=== PATIENT | male | born 1960 | race Caucasian/White ===

== ENCOUNTER 2016-05-28 22:18 | Inpatient (IN) | payer OTHER ==
[~2016-05-28] VITALS: Ht 188 cm; Wt 55.5 kg
[~2016-05-28 22:18] MED LIST: DEXTR50%P; DILA100C IVP; DOCU8.6T PO; IPRASOL INH; MAGN400T14 PO; MIRA33504 PO; PERI0.126 SWISH-SPIT; POTA10LI10 PO; POTAGRA; PROP10IN IV-CENTRAL; PROT40TA IVP; ZOFR4SOL IVP; [UNRECOGNIZED DRUG - CODE]; [UNRECOGNIZED DRUG - CODE] IV-CENTRAL
[2016-05-29 14:26] VITALS: BP 131/82; PULSE 61; RESP 16; TEMP 96.2; O2SAT 100
[2016-05-29] MEDS ORDERED: NALOXONE HCL 0.4 MG/ML AMP IV PRN (15:00)
[2016-05-29] MEDS ORDERED: SODIUM CHLORIDE 0.9% FLUSH 5 ML FLUSH FLUSH PRN (15:00)
[2016-05-29] MEDS ORDERED: ONDANSETRON HCL 4 MG/2 ML VIAL IVP PRN (15:00)
--- NOTE | 2016-05-29 15:11 | HHI.HP ---
HPI Service [facility] Hospitalists Primary Care Physician No Primary Care Physician Admission Diagnosis Intracranial hemorrhage, AVM status post repair at outside hospital. Return transfer of care. Diagnoses: Chief Complaint: Return transfer of care from [facility]. Travel History International Travel<30 Days: No Contact w/Intl Traveler <30 Da: No Traveled to Known Affected Are: No History of Present Illness Extensive chart review as the patient is unable to provide his own history. He is a 55-year-old male with a medical history significant for rectal cancer status post resection, chemotherapy therapy and radiation. The patient was initially admitted to [place] on 05/03/2016 after he was found down. He was intubated in the field and was noted to have disconjugate pupils. 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 The patient underwent placement of right frontal external ventricular drain for acute hydrocephalus and was transferred to [facility] for further treatment of the AVM. At [facility], the patient underwent AVM embolization followed by suboccipital craniotomy for hematoma evacuation and AVM resection. Postoperatively, he was slow to wake up and a head CT showed herniation. His EVD was Clamped and his mental status improved. Other complications include the UTI and agitation. He was started on Rocephin and Seroquel when improvement. The patient is being transferred back to [facility]. The patient is evaluated in his room. He is still very much confused trying to pull off his PEG. He knows that he is at [place] otherwise he is confused about his situation, dates and times. Review of Systems ROS Limitations: Clinical Condition, Altered Mental Status Other Unable to obtain reliable review of systems as of the patient's profound confusion state. Past Family Social History Past Medical History Per review of the available medical record: History of rectal mass status post resection and radiation/chemotherapy. Intracranial hemorrhage secondary to AVM as above. Past Surgical History Rectal mass resection Craniectomy Reported Medications Current medications include Rocephin 1 g IV every 12 hours Fioricet 1 tab every 4 hours as needed for headache. Heparin 5000 units every 8 hours Keppra 500 mg by mouth twice a day Metoprolol 25 mg by mouth twice a day Seroquel 25 mg by mouth twice a day Allergies: Coded Allergies: Oxycodone (Unverified Allergy, Intermediate, ITCHY, 01/16/16) Family History Unable to obtain due to the patient's condition Social History Patient has a history of tobacco abuse and 2-3 beers daily on previous hospital visits Physical Exam Vital Signs Vital Signs Date Time Temp Pulse Resp B/P Pulse Ox O2 Delivery O2 Flow Rate FiO2 05/29/16 14:26 96.2 61 16 131/82 100 Physical Exam GENERAL: This is a well-nourished, well-developed patient, in no apparent distress. Patient is confused, attempts to remove PEG tube. HEAD: Right frontal suture is intact. Healing area in the posterior cerebrum. EYES: Pupils equal round and reactive. Extraocular motions intact. No scleral icterus. No injection or drainage. ENT: Nose without bleeding, purulent drainage or septal hematoma. Throat without erythema, tonsillar hypertrophy or exudate. Uvula midline. Airway patent. NECK: Trachea midline. No JVD or lymphadenopathy. Supple, nontender, no meningeal signs. CARDIOVASCULAR: Regular rate and rhythm without murmurs, gallops, or rubs. RESPIRATORY: Clear to auscultation. Breath sounds equal bilaterally. No wheezes , rales, or rhonchi. GASTROINTESTINAL: PEG tube in place. Abdomen soft, nontender, nondistended. MUSCULOSKELETAL: Extremities without clubbing, cyanosis, or edema. NEUROLOGICAL: Awake, speech is normal but is confused. He can move all extremities spontaneously. He follows some commands. Laboratory CBC, BMP, reviewed from outside hospital all unremarkable. This can be found in the paper chart. Assessment and Plan Problem List: (1) Cerebellar hemorrhage ICD Code: I61.4 Status: Acute (2) AVM (arteriovenous malformation) brain ICD Code: Q28.2 Status: Acute (3) Encephalopathy, traumatic ICD Code: F07.81 Status: Acute (4) UTI (urinary tract infection) ICD Code: N39.0 Status: Acute (5) Agitation ICD Code: R45.1 Status: Acute Assessment and Plan 55-year-old male initially admitted to [facility] on 05/03/60 with an intracerebral hemorrhage secondary to AVM. Patient was subsequently transferred to [facility] for intervention. The patient is returned to [place] to continue care. Intracerebral hemorrhage/AVM: Patient underwent AVM embolization followed by suboccipital craniectomy for hematoma evacuation and AVM resection. Patient status slowly improving and deemed to be neurologically stable. He was transferred back to [place]. He is to remain on antiepileptic until follow-up with neurosurgeon, Dr. Greg Villela at [facility]. He has an appointment on 07/31/16 at 1 PM. - Continue Keppra - PT/OT/speech - Patient will need continuing rehabilitation. - Seroquel for agitation. Restraint as needed. Dysphagia/currently on tube feeding: Apparently the patient was having issues with dysphagia and subsequently had a PEG tube placed. He has been getting tube feeding. - Will have speech therapy do swallow eval. - Continue tube feeding. UTI: Patient was found to have a UTI and was started on Rocephin. -He will continue Rocephin for 5 days. We will request urine culture results from [facility]. GI prophylaxis: Stool softener PRN constipation. DVT PPx: Heparin Physician Certification 2 Midnight Certification Type: Admission for Inpatient Services Order for Inpatient Services The services are ordered in accordance with Medicare regulations or non- Medicare payer requirements, as applicable. In the case of services not specified as inpatient-only, they are appropriately provided as inpatient services in accordance with the 2-midnight benchmark. Estimated LOS (days): 5 days is the estimated time the patient will need to remain in the hospital, assuming treatment plan goals are met and no additional complications. Post-Hospital Plan: Not yet determined Babita Pinto MD May 29, 2016 15:11
[2016-05-29 15:35] VITALS: BP 128/73; PULSE 79; RESP 16; TEMP 96.4; O2SAT 100
[2016-05-29] MEDS: cefTRIAXone INJ 1,000 MG in SODIUM CHLORIDE 0.9% INJ 100 ML IV SCH (16:40)
[2016-05-29 20:17] VITALS: BP 96/64; PULSE 90; RESP 18; TEMP 96.6; O2SAT 100
[2016-05-29] MEDS: METOPROLOL TARTRATE 25 MG TAB PO SCH (22:24)
[2016-05-29] MEDS: levETIRAcetam 500 MG TAB PO SCH (22:24)
[2016-05-29] MEDS: QUEtiapine FUMARATE 25 MG TAB PO SCH (22:24)
[2016-05-29] MEDS: HEPARIN SODIUM - SQ 10,000 UNITS/ML VIAL SQ SCH (22:25)
[2016-05-29] MEDS: SODIUM CHLORIDE 0.9% FLUSH 5 ML FLUSH FLUSH SCH (22:27)
[2016-05-30 00:08] VITALS: BP 121/84; PULSE 108; RESP 20; TEMP 97.8; O2SAT 100
[2016-05-30] MEDS: cefTRIAXone INJ 1,000 MG in SODIUM CHLORIDE 0.9% INJ 100 ML IV SCH ×2 (04:30→16:00)
[2016-05-30 05:29] VITALS: BP 91/60; PULSE 76; RESP 17; TEMP 97.3; O2SAT 99
[2016-05-30 05:48] LABS: AUTOMATED NEUTROPHIL # 4.4 TH/MM3 (1.8-7.7); BASOPHIL % 0.7 % (0.0-2.0); EOSINOPHIL # 0.3 TH/MM3 (0-0.4); EOSINOPHIL % 4.3 % (0.0-4.0); HEMATOCRIT 34.4 % (39.0-51.0); HEMO FLAGS DIFF FINAL; LYMPH % 17.7 % (9.0-44.0); LYMPHOCYTE # 1.1 TH/MM3 (1.0-4.8); MEAN CELL VOLUME 89.1 FL (80.0-100.0); MEAN CORPUSCULAR HEMOGLOBIN 30.6 PG (27.0-34.0); MEAN CORPUSCULAR HGB CONC 34.3 % (32.0-36.0); MONO % 8.1 % (0.0-8.0); NEUT % 69.2 % (16.0-70.0); PLATELET COUNT 346 TH/MM3 (150-450); RED BLOOD COUNT 3.86 MIL/MM3 (4.50-5.90); RED CELL DISTRIBUTION WIDTH 14.1 % (11.6-17.2); WHITE BLOOD COUNT 6.3 TH/MM3 (4.0-11.0)
[2016-05-30 06:21] LABS: POTASSIUM 3.5 MEQ/L (3.5-5.1)
[2016-05-30 08:00] VITALS: BP 101/57; PULSE 92; RESP 20; TEMP 96.4; O2SAT 98
[2016-05-30] MEDS: levETIRAcetam 500 MG TAB PO SCH ×2 (09:34→21:15)
[2016-05-30] MEDS: METOPROLOL TARTRATE 25 MG TAB PO SCH ×2 (09:34→21:15)
[2016-05-30] MEDS: QUEtiapine FUMARATE 25 MG TAB PO SCH ×2 (09:34→21:15)
[2016-05-30] MEDS: HEPARIN SODIUM - SQ 10,000 UNITS/ML VIAL SQ SCH ×2 (09:35→21:15)
[2016-05-30] MEDS: SODIUM CHLORIDE 0.9% FLUSH 5 ML FLUSH FLUSH SCH ×2 (09:35→21:00)
[2016-05-30] MEDS: ACETAMIN 325 MG/BUTALBITAL 50 MG/CAFFEINE 40 MG TAB PO PRN (09:35)
[2016-05-30 12:00] VITALS: BP 96/63; PULSE 68; RESP 20; TEMP 97.4; O2SAT 98
--- NOTE | 2016-05-30 13:07 | HHI.PR ---
Subjective Remarks Patient is awake and alert. He used some foul language when I ask him about where he lives. Discuss with RN. Earlier this morning he was oriented to self and time. Otherwise remained confused. Objective Vitals Vital Signs Date Time Temp Pulse Resp B/P Pulse Ox O2 Delivery O2 Flow Rate FiO2 05/30/16 08:00 96.4 92 20 101/57 98 05/30/16 05:29 97.3 76 17 91/60 99 05/30/16 00:08 97.8 108 20 121/84 100 05/29/16 20:17 96.6 90 18 96/64 100 05/29/16 15:35 96.4 79 16 128/73 100 05/29/16 14:26 96.2 61 16 131/82 100 Result Diagram: 05/30/1651505/30/16515 Objective Remarks GENERAL: Patient is confused. HEAD: Right frontal suture is intact. Healing area in the posterior cerebrum. CARDIOVASCULAR: Regular rate and rhythm without murmurs, gallops, or rubs. RESPIRATORY: Clear to auscultation. Breath sounds equal bilaterally. No wheezes , rales, or rhonchi. GASTROINTESTINAL: PEG tube in place. Abdomen soft, nontender, nondistended. MUSCULOSKELETAL: Extremities without clubbing, cyanosis, or edema. NEUROLOGICAL: Awake, speech is normal but is confused. He can move all extremities spontaneously. He follows some commands. A/P Problem List: (1) Cerebellar hemorrhage ICD Code: I61.4 Status: Acute (2) AVM (arteriovenous malformation) brain ICD Code: Q28.2 Status: Acute (3) Encephalopathy, traumatic ICD Code: F07.81 Status: Acute (4) UTI (urinary tract infection) ICD Code: N39.0 Status: Acute (5) Agitation ICD Code: R45.1 Status: Acute Assessment and Plan 55-year-old male initially admitted to [place] on 05/03/60 with an intracerebral hemorrhage secondary to AVM. Patient was subsequently transferred to [facility] for intervention. The patient returned to [place] on to continue care. Intracerebral hemorrhage/AVM: Patient underwent AVM embolization followed by suboccipital craniectomy for hematoma evacuation and AVM resection. Patient status slowly improving and deemed to be neurologically stable. He was transferred back to [place]. He is to remain on antiepileptic until follow-up with neurosurgeon, Dr. Greg Villela at [facility]. He has an appointment on 07/31/16 at 1 PM. - Continue Keppra - PT/OT/speech - Patient will need continuing rehabilitation. - Seroquel for agitation. Restraint as needed. Dysphagia/currently on tube feeding: Apparently the patient was having issues with dysphagia and subsequently had a PEG tube placed. He has been getting tube feeding. -Advance diet per speech therapy recommendations. Mechanical soft. - Continue tube feeding. UTI: Patient was found to have a UTI and was started on Rocephin. -He will continue Rocephin for 5 days. He has 3 more days of treatment. GI prophylaxis: Stool softener PRN constipation. DVT PPx: Heparin Babita Pinto MD May 30, 2016 13:07
[2016-05-30 16:00] VITALS: BP 87/58; PULSE 67; RESP 20; TEMP 96.4; O2SAT 100
[2016-05-30 21:04] VITALS: BP 94/65; PULSE 80; RESP 20; TEMP 96.8; O2SAT 100
[2016-05-31] VITALS (7 sets, daily range): BP systolic 108–124; BP diastolic 69–79; PULSE 70–97; RESP 14–20; TEMP 97–98.7; O2SAT 97–100
[2016-05-31] MEDS: ACETAMIN 325 MG/BUTALBITAL 50 MG/CAFFEINE 40 MG TAB PO PRN (01:38)
[2016-05-31] MEDS: cefTRIAXone INJ 1,000 MG in SODIUM CHLORIDE 0.9% INJ 100 ML IV SCH ×2 (03:58→15:34)
[2016-05-31] MEDS: HEPARIN SODIUM - SQ 10,000 UNITS/ML VIAL SQ SCH ×2 (08:33→23:17)
[2016-05-31] MEDS: QUEtiapine FUMARATE 25 MG TAB PO SCH ×2 (08:33→23:17)
[2016-05-31] MEDS: METOPROLOL TARTRATE 25 MG TAB PO SCH ×2 (08:33→21:00)
[2016-05-31] MEDS: levETIRAcetam 500 MG TAB PO SCH ×2 (08:33→23:17)
[2016-05-31] MEDS: SODIUM CHLORIDE 0.9% FLUSH 5 ML FLUSH FLUSH SCH ×2 (08:34→21:00)
--- NOTE | 2016-05-31 11:40 | HHI.PR ---
Subjective Remarks Patient is awake and alert. He remained confused. Objective Vitals Vital Signs Date Time Temp Pulse Resp B/P Pulse Ox O2 Delivery O2 Flow Rate FiO2 05/31/16 08:00 98.4 77 18 123/71 99 05/31/16 04:34 97.0 70 20 108/71 100 05/31/16 00:52 98.5 90 20 113/69 97 05/30/16 21:04 96.8 80 20 94/65 100 05/30/16 16:00 96.4 67 20 87/58 100 05/30/16 12:00 97.4 68 20 96/63 98 I/O 05/30/16 05/30/16 05/30/16 05/31/16 05/31/16 05/31/16 06:59 14:59 22:59 06:59 14:59 22:59 Intake Total 240 ml Output Total 400 ml Balance -160 ml Intake Oral 240 ml Output Urine Total 400 ml # Voids 1 0 1 # Bowel Movements 1 1 0 4 Result Diagram: 05/30/1651505/30/16515 Objective Remarks GENERAL: Patient is confused. HEAD: Right frontal suture is intact. Healing area in the posterior cerebrum. CARDIOVASCULAR: Regular rate and rhythm without murmurs, gallops, or rubs. RESPIRATORY: Clear to auscultation. Breath sounds equal bilaterally. No wheezes , rales, or rhonchi. GASTROINTESTINAL: PEG tube in place. Abdomen soft, nontender, nondistended. MUSCULOSKELETAL: Extremities without clubbing, cyanosis, or edema. NEUROLOGICAL: Awake, speech is normal but is confused. He can move all extremities spontaneously. He follows some commands. A/P Problem List: (1) Cerebellar hemorrhage ICD Code: I61.4 Status: Acute (2) AVM (arteriovenous malformation) brain ICD Code: Q28.2 Status: Acute (3) Encephalopathy, traumatic ICD Code: F07.81 Status: Acute (4) UTI (urinary tract infection) ICD Code: N39.0 Status: Acute (5) Agitation ICD Code: R45.1 Status: Acute Assessment and Plan 55-year-old male initially admitted to [place] on 05/03/60 with an intracerebral hemorrhage secondary to AVM. Patient was subsequently transferred to [facility] for intervention. The patient returned to [place] on to continue care. Intracerebral hemorrhage/AVM: Patient underwent AVM embolization followed by suboccipital craniectomy for hematoma evacuation and AVM resection. Patient status slowly improving and deemed to be neurologically stable. He was transferred back to [place]. He is to remain on antiepileptic until follow-up with neurosurgeon, Dr. Greg Villela at [facility]. He has an appointment on 07/31/16 at 1 PM. - Continue Keppra - PT/OT/speech - Patient will need continuing rehabilitation. - Seroquel for agitation. Restraint as needed. Dysphagia/currently on tube feeding: Apparently the patient was having issues with dysphagia and subsequently had a PEG tube placed. He has been getting tube feeding. -Advance diet per speech therapy recommendations. Mechanical soft. - Continue to supplement with tube feeding. UTI: Patient was found to have a UTI and was started on Rocephin. -He will continue Rocephin for 5 days. He has 2 more days of treatment. GI prophylaxis: Stool softener PRN constipation. DVT PPx: Heparin Babita Pinto MD May 31, 2016 11:39
[2016-06-01] VITALS: BP 124/79; PULSE 97; RESP 16; TEMP 98.7; O2SAT 97
[2016-06-01 04:00] VITALS: BP 101/61; PULSE 92; RESP 16; TEMP 98.8; O2SAT 93
[2016-06-01] MEDS: cefTRIAXone INJ 1,000 MG in SODIUM CHLORIDE 0.9% INJ 100 ML IV SCH ×2 (05:50→17:05)
[2016-06-01 08:00] VITALS: BP 93/63; PULSE 76; RESP 16; TEMP 96.7; O2SAT 98
[2016-06-01] MEDS: METOPROLOL TARTRATE 25 MG TAB PO SCH ×2 (09:00→21:00)
[2016-06-01] MEDS: levETIRAcetam 500 MG TAB PO SCH ×2 (09:22→21:55)
[2016-06-01] MEDS: QUEtiapine FUMARATE 25 MG TAB PO SCH ×2 (09:22→21:55)
[2016-06-01] MEDS: SODIUM CHLORIDE 0.9% FLUSH 5 ML FLUSH FLUSH SCH ×2 (09:23→21:00)
[2016-06-01] MEDS: HEPARIN SODIUM - SQ 10,000 UNITS/ML VIAL SQ SCH ×2 (09:23→21:55)
[2016-06-01 12:00] VITALS: BP 85/68; PULSE 85; RESP 16; TEMP 96.9; O2SAT 100
--- NOTE | 2016-06-01 13:32 | HHI.PR ---
Subjective Remarks Patient is still confused. He is awake. Blood pressure borderline low today. He is eating and drinking about 50%. Objective Vitals Vital Signs Date Time Temp Pulse Resp B/P Pulse Ox O2 Delivery O2 Flow Rate FiO2 06/01/16 08:00 96.7 76 16 93/63 98 06/01/16 04:00 98.8 92 16 101/61 93 06/01/16 00:00 98.7 97 16 124/79 97 05/31/16 20:00 97.3 86 14 108/74 97 05/31/16 16:00 98.5 88 18 110/75 99 I/O 05/31/16 05/31/16 05/31/16 06/01/16 06/01/16 06/01/16 06:59 14:59 22:59 06:59 14:59 22:59 Intake Total 120 ml Output Total 250 ml Balance -130 ml Intake Oral 120 ml Output Urine Total 250 ml # Voids 1 1 4 # Bowel Movements 4 1 Result Diagram: 05/30/1651505/30/16515 Objective Remarks GENERAL: Patient is confused. HEAD: Right frontal suture is intact. Healing area in the posterior cerebrum. CARDIOVASCULAR: Regular rate and rhythm without murmurs, gallops, or rubs. RESPIRATORY: Clear to auscultation. Breath sounds equal bilaterally. No wheezes , rales, or rhonchi. GASTROINTESTINAL: PEG tube in place. Abdomen soft, nontender, nondistended. MUSCULOSKELETAL: Extremities without clubbing, cyanosis, or edema. NEUROLOGICAL: Awake, speech is normal but is confused. He can move all extremities spontaneously. He follows some commands. A/P Problem List: (1) Cerebellar hemorrhage ICD Code: I61.4 Status: Acute (2) AVM (arteriovenous malformation) brain ICD Code: Q28.2 Status: Acute (3) Encephalopathy, traumatic ICD Code: F07.81 Status: Acute (4) UTI (urinary tract infection) ICD Code: N39.0 Status: Acute (5) Agitation ICD Code: R45.1 Status: Acute Assessment and Plan 55-year-old male initially admitted to [place] on 05/03/60 with an intracerebral hemorrhage secondary to AVM. Patient was subsequently transferred to [facility] for intervention. The patient returned to [place] on to continue care. Intracerebral hemorrhage/AVM: Patient underwent AVM embolization followed by suboccipital craniectomy for hematoma evacuation and AVM resection. Patient status slowly improving and deemed to be neurologically stable. He was transferred back to [place]. He is to remain on antiepileptic until follow-up with neurosurgeon, Dr. Greg Villela at [facility]. He has an appointment on 07/31/16 at 1 PM. - Continue Keppra - PT/OT/speech - Patient will need continuing rehabilitation. - Seroquel for agitation. Restraint as needed. Dysphagia/currently on tube feeding: Apparently the patient was having issues with dysphagia and subsequently had a PEG tube placed. He has been getting tube feeding. -Advance diet per speech therapy recommendations. Mechanical soft. - Continue to supplement with tube feeding. Hypotension: No over symptoms. MAP>60. Continue to hold Metoprolol. Give total 1 L of IVF. Continue to monitor. UTI: Patient was found to have a UTI and was started on Rocephin. -He will continue Rocephin for 5 days. He has 1 more day of treatment. GI prophylaxis: Stool softener PRN constipation. DVT PPx: Heparin Discharge Planning Case management consulted for placement. Babita Pinto MD Jun 01, 2016 13:32
[2016-06-01] MEDS ORDERED: SODIUM CHLOR 0.9% 1000 ML INJ 1,000 ML IV SCH (14:30)
[2016-06-01 16:00] VITALS: BP 87/57; PULSE 88; RESP 16; TEMP 97.2; O2SAT 100
[2016-06-01 20:00] VITALS: BP 105/76; PULSE 86; RESP 12; TEMP 96.8; O2SAT 92
[2016-06-02] VITALS: BP 131/80; PULSE 88; RESP 18; TEMP 95.8; O2SAT 99
[2016-06-02 04:00] VITALS: BP 100/71; PULSE 111; RESP 14; TEMP 98; O2SAT 97
[2016-06-02] MEDS: cefTRIAXone INJ 1,000 MG in SODIUM CHLORIDE 0.9% INJ 100 ML IV SCH (04:47)
[2016-06-02 08:00] VITALS: BP 115/75; PULSE 106; RESP 20; TEMP 97.7; O2SAT 94
--- NOTE | 2016-06-02 10:27 | HHI.PR ---
Subjective Remarks DW RN. There is concern for CSF leak at the posterior incision site. Patient continues to be confused. He is hallucinating. Objective Vitals Vital Signs Date Time Temp Pulse Resp B/P Pulse Ox O2 Delivery O2 Flow Rate FiO2 06/02/16 08:00 97.7 106 20 115/75 94 06/02/16 04:00 98.0 111 14 100/71 97 06/02/16 00:00 95.8 88 18 131/80 99 06/01/16 20:00 96.8 86 12 105/76 92 06/01/16 16:00 97.2 88 16 87/57 100 06/01/16 12:00 96.9 85 16 85/68 100 I/O 06/01/16 06/01/16 06/01/16 06/02/16 06/02/16 06/02/16 06:59 14:59 22:59 06:59 14:59 22:59 Intake Total 1426 ml Balance 1426 ml IV Total 622 ml Tube Feeding 604 ml Other 200 ml # Voids 4 Result Diagram: 05/30/1651505/30/16515 Objective Remarks GENERAL: Patient is confused. SKIN: Macular rash involving his whole back. HEAD: Right frontal suture is intact. Posterior cerebrum incision site is wet with a clear fluid.. CARDIOVASCULAR: Regular rate and rhythm without murmurs, gallops, or rubs. RESPIRATORY: Clear to auscultation. Breath sounds equal bilaterally. No wheezes , rales, or rhonchi. GASTROINTESTINAL: PEG tube in place. Abdomen soft, nontender, nondistended. MUSCULOSKELETAL: Extremities without clubbing, cyanosis, or edema. NEUROLOGICAL: Awake, speech is normal but is confused. He can move all extremities spontaneously. A/P Problem List: (1) Cerebellar hemorrhage ICD Code: I61.4 Status: Acute (2) AVM (arteriovenous malformation) brain ICD Code: Q28.2 Status: Acute (3) Encephalopathy, traumatic ICD Code: F07.81 Status: Acute (4) UTI (urinary tract infection) ICD Code: N39.0 Status: Acute (5) Agitation ICD Code: R45.1 Status: Acute Assessment and Plan 55-year-old male initially admitted to [place] on 05/03/60 with an intracerebral hemorrhage secondary to AVM. Patient was subsequently transferred to [facility] for intervention. The patient returned to [place] on to continue care. Intracerebral hemorrhage/AVM: Patient underwent AVM embolization followed by suboccipital craniectomy for hematoma evacuation and AVM resection. Patient status slowly improving and deemed to be neurologically stable. He was transferred back to [place]. He is to remain on antiepileptic until follow-up with neurosurgeon, Dr. Greg Villela at [facility]. He has an appointment on 07/31/16 at 1 PM. - Concern for CSF leak, consult Neurosurgery for assistance. - Repeat Head CT when more calm. - Continue Keppra - PT/OT/speech - Patient will need continuing rehabilitation. - Seroquel for agitation. Restraint as needed. Dysphagia/currently on tube feeding: Apparently the patient was having issues with dysphagia and subsequently had a PEG tube placed. He has been getting tube feeding. - Advance diet per speech therapy recommendations. Mechanical soft. - Continue to supplement with tube feeding. Rash: Involving his back. Could be drug reaction. Rocephin discontinued. Continue to monitor. UTI: Patient was found to have a UTI and was treated with Rocephin for 5 days. GI prophylaxis: Stool softener PRN constipation. DVT PPx: Heparin Discharge Planning Case management consulted for placement. Babita Pinto MD Jun 02, 2016 10:27
[2016-06-02] MEDS: HEPARIN SODIUM - SQ 10,000 UNITS/ML VIAL SQ SCH ×2 (10:37→21:02)
[2016-06-02] MEDS: SODIUM CHLORIDE 0.9% FLUSH 5 ML FLUSH FLUSH SCH ×2 (10:37→21:00)
[2016-06-02] MEDS: QUEtiapine FUMARATE 25 MG TAB PO SCH ×2 (10:37→21:02)
[2016-06-02] MEDS: levETIRAcetam 500 MG TAB PO SCH ×2 (10:37→21:03)
[2016-06-02] MEDS ORDERED: diphenhydrAMINE HCL 2%/ZINC ACETATE 0.1% CREAM 30 APPLIC/30 GM TUBE TOPICAL PRN (11:15)
[2016-06-02 11:39] LABS: AUTOMATED NEUTROPHIL # 8.1 TH/MM3 (1.8-7.7); BASOPHIL # 0.1 TH/MM3 (0-0.2); BASOPHIL % 0.8 % (0.0-2.0); EOSINOPHIL # 0.2 TH/MM3 (0-0.4); EOSINOPHIL % 2.4 % (0.0-4.0); HEMATOCRIT 37.4 % (39.0-51.0); HEMO FLAGS DIFF FINAL; LYMPH % 10.6 % (9.0-44.0); LYMPHOCYTE # 1.1 TH/MM3 (1.0-4.8); MEAN CELL VOLUME 89.5 FL (80.0-100.0); MEAN CORPUSCULAR HEMOGLOBIN 31.4 PG (27.0-34.0); MEAN CORPUSCULAR HGB CONC 35.1 % (32.0-36.0); NEUT % 80.2 % (16.0-70.0); PLATELET COUNT 284 TH/MM3 (150-450); RED BLOOD COUNT 4.17 MIL/MM3 (4.50-5.90); RED CELL DISTRIBUTION WIDTH 14.4 % (11.6-17.2); WHITE BLOOD COUNT 10.2 TH/MM3 (4.0-11.0)
[2016-06-02 12:00] VITALS: BP 123/78; PULSE 111; RESP 20; TEMP 97.8; O2SAT 97
[2016-06-02 12:02] LABS: BICARBONATE 27.6 MEQ/L (21.0-32.0)
[2016-06-02 16:00] VITALS: BP 116/75; PULSE 91; RESP 20; TEMP 98.4; O2SAT 96
[2016-06-02] MEDS ORDERED: IOHEXOL 350 MG/ML 10 ML VIAL (for RAD DIAG) IV ONE (20:32)
--- NOTE | 2016-06-02 20:45 | RADRPT ---
EXAM DATE/TIME: 06/02/2016 20:00 [place] COMPARISON: No previous studies available for comparison. INDICATIONS : History of craniotomy possible CSF leak. IV CONTRAST: 95 cc Omnipaque 350 (iohexol) IV RADIATION DOSE: 41.62 CTDIvol (mGy) MEDICAL HISTORY : Carcinoma, rectal. Skin cancer SURGICAL HISTORY : Craniotomy. ENCOUNTER: Initial ACUITY: 1 day PAIN SCALE: 0/10 LOCATION: cranial TECHNIQUE: Multiple contiguous axial images were obtained of the head. Using automated exposure control and adj ustment of the mA and/or kV according to patient size, radiation dose was kept as low as reasonably a chievable to obtain optimal diagnostic quality images. FINDINGS: Comparison is May 05. Since the previous exam there has been a partial occipital craniectomy and numerous vascular coils in the posterior fossa for treatment of a reported previous arterial venous m alformation. There is encephalomalacia in the operative bed. There is no new intracranial hemorrhage. Supratentori al brain is unremarkable without mass effect or midline shift. Some air remains in the subcutaneous t issues in the surgical site at the posterior fossa. Previous intraventricular hemorrhage has resolved . Previous ventriculostomy tube has been removed. Small radiopaque density remains in the right front al lobe. CONCLUSION: Postoperative partial occipital craniectomy for treatment of arteriovenous malformation with vascular coils present in the operative bed. There is encephalomalacia in the posterior fossa involving the p osterior cerebellum more so on the left side. No new intracranial hemorrhage. Resolution of previous intraventricular hemorrhage. Removal of previous ventriculostomy. Kirk Cortes MD on June 02, 2016 at 20:38 Board Certified Radiologist. This report was verified electronically.
[2016-06-02] MEDS: METOPROLOL TARTRATE 50 MG TAB PO SCH (21:03)
--- NOTE | 2016-06-02 21:46 | PD.CONS ---
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 The patient underwent placement of right frontal external ventricular drain for acute hydrocephalus and was transferred to [facility] for further treatment of the AVM by embolization followed by suboccipital craniotomy for hematoma evacuation and AVM resection. Postoperatively, he was slow to wake up, his EVD was Clamped and removed and his mental status was improving. Other complications include the UTI and agitation. He was started on Rocephin and Seroquel. The patient is being transferred back to [facility] due to confusion and questionable CSF leak. 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 Intracranial hemorrhage secondary to AVM as above. Alcoholism Past Surgical History Rectal mass resection Craniectomy Reported Medications Rocephin 1 g IV every 12 hours Fioricet 1 tab every 4 hours as needed for headache. Heparin 5000 units every 8 hours Keppra 500 mg by mouth twice a day Metoprolol 25 mg by mouth twice a day Seroquel 25 mg by mouth twice a day Active Ordered Medications Current Medications Medications (Trade) Dose Ordered Sig/Paula Route PRN Reason Start Time Stop Time Status Last Admin Dose Admin IV Flush (NS Flush) 2 ml UNSCH PRN FLUSH FLUSH AFTER USING IV ACCESS 05/29/16 15:00 IV Flush (NS Flush) 2 ml BID FLUSH 05/29/16 21:00 06/02/16 21:00 Ondansetron HCl (Zofran Inj) 4 mg Q6H PRN IVP NAUSEA OR VOMITING 05/29/16 15:00 Naloxone HCl (Narcan Inj) 0.4 mg UNSCH PRN IV SEE LABEL COMMENTS 05/29/16 15:00 Acetaminophen/ Butalbital/ Caffeine (Fioricet 325-50-40) 1 tab Q6H PRN PO PAIN GREATER THAN 5 or headach 05/29/16 15:00 11/26/16 01:38 Heparin Sodium (Porcine) (Heparin Inj) 5,000 units Q12HR SQ 05/29/16 21:00 06/02/16 21:02 Levetriacetam (Keppra) 500 mg Q12HR PO 05/29/16 21:00 06/02/16 21:03 Morphine Sulfate (Morphine Inj) 2 mg Q3H PRN IV PUSH BREAKTHROUGH PAIN 06/02/16 10:30 Metoprolol Tartrate (Lopressor) 50 mg Q12HR PO 06/02/16 21:00 06/02/16 21:03 Quetiapine Fumarate (SEROquel) 50 mg BID PO 06/02/16 21:00 06/02/16 21:02 Diphenhydramine HCl (Benadryl 2% Cream) 1 applic TID PRN TOPICAL ITCHING 06/02/16 11:15 Family History Unable to obtain due to the patient's condition Social History Patient has a history of tobacco abuse and 2-3 beers daily on previous hospital visits Physical Exam Vital Signs Vital Signs Date Time Temp Pulse Resp B/P Pulse Ox O2 Delivery O2 Flow Rate FiO2 06/02/16 16:00 98.4 91 20 116/75 96 06/02/16 12:00 97.8 111 20 123/78 97 06/02/16 08:00 97.7 106 20 115/75 94 06/02/16 04:00 98.0 111 14 100/71 97 06/02/16 00:00 95.8 88 18 131/80 99 Physical Exam GENERAL: Well-nourished, well-developed patient. SKIN: Warm and dry. HEAD: Normocephalic.Post occipital craniotomy EYES: No scleral icterus. No injection or drainage. NECK: Supple, trachea midline. No JVD or lymphadenopathy. CARDIOVASCULAR: Regular rate and rhythm without murmurs, gallops, or rubs. RESPIRATORY: Breath sounds equal bilaterally. No accessory muscle use. GASTROINTESTINAL: Abdomen soft, non-tender, nondistended. MUSCULOSKELETAL: No cyanosis, or edema. BACK: Nontender without obvious deformity. No CVA tenderness. EXTREMITIES: Laboratory Laboratory Tests Test 06/02/16 11:19 White Blood Count 10.2 Red Blood Count 4.17 Hemoglobin 13.1 Hematocrit 37.4 Mean Corpuscular Volume 89.5 Mean Corpuscular Hemoglobin 31.4 Mean Corpuscular Hemoglobin 35.1 Concent Red Cell Distribution Width 14.4 Platelet Count 284 Mean Platelet Volume 8.2 Neutrophils (%) (Auto) 80.2 Lymphocytes (%) (Auto) 10.6 Monocytes (%) (Auto) 6.0 Eosinophils (%) (Auto) 2.4 Basophils (%) (Auto) 0.8 Neutrophils # (Auto) 8.1 Lymphocytes # (Auto) 1.1 Monocytes # (Auto) 0.6 Eosinophils # (Auto) 0.2 Basophils # (Auto) 0.1 CBC Comment DIFF FINAL Differential Comment Sodium Level 146 Potassium Level 4.0 Chloride Level 109 Carbon Dioxide Level 27.6 Anion Gap 9 Blood Urea Nitrogen 12 Creatinine 0.63 Estimat Glomerular Filtration 133 Rate Random Glucose 100 Calcium Level 9.2 Result Diagram: 06/02/16 1119 06/02/16 1119 Imaging Last [address] 06/02/16 0000 Signed Impressions: Service Date/Time: Thursday, June 02, 2016 20:00 - CONCLUSION: Postoperative partial occipital craniectomy for treatment of arteriovenous malformation with vascular coils present in the operative bed. There is encephalomalacia in the posterior fossa involving the posterior cerebellum more so on the left side. No new intracranial hemorrhage. Resolution of previous intraventricular hemorrhage. Removal of previous ventriculostomy. Kirk Cortes MD Septic Shock Reassessment Heart: Regular rate and rhythm Lungs: Clear Skin: Warm Peripheral Pulses: Bounding Right Radial Bounding Left Radial Assessment and Plan Problem List: (1) AVM (arteriovenous malformation) brain ICD Code: Q28.2 Status: Acute (2) Encephalopathy, traumatic ICD Code: F07.81 Status: Acute (3) UTI (urinary tract infection) ICD Code: N39.0 Status: Acute (4) Agitation ICD Code: R45.1 Status: Acute (5) Cerebellar hemorrhage ICD Code: I61.4 Status: Acute Assessment and Plan Neurologic: Intracranial hemorrhage Pial AVM Subarachnoid hemorrhage Mild Encephalopathy CSF leak?? - status post embolization and resection - neuro checks per unit protocol - awaiting NSGY eval for leak - Minimize sedation - Neurosurgery following, Dr. Lionel Bass for seizure prophylaxis - Seroquel for agitation control Respiratory: - NC is needed - keep Sat >92% Cardiovascular: Hypertension - Metoprol - continue Telemetry Renal: - Strict I/Os - attempt euvolemia FEN/GI: Acute protein calorie malnutritionmild Hypokalemia - ICU electrolyte protocol - bowel regimen to prevent straining on bowel movement - Daily BMP Heme/ID: - No infectious etiology suspected this time - Does not meet transfusion triggers at this time. - Daily CBC Endocrine: - SSI if needed Prophylaxis: GI Prophylaxis Protonix 40 mg IV daily 24 hours: Intracranial pathology DVT Prophylaxis - SCDs - Heparin subQ Critical Care: The total critical care time was 35 minutes. Time to perform other separately billable procedures was not included in the critical care time. Chidi Trimble MD Jun 02, 2016 21:46
[2016-06-02 22:00] VITALS: BP 119/87; PULSE 80; RESP 12; TEMP 98.3; O2SAT 99
[2016-06-03] VITALS (8 sets, daily range): BP systolic 95–109; BP diastolic 62–71; PULSE 80–93; RESP 11–16; TEMP 98–99.3; O2SAT 97–100
--- NOTE | 2016-06-03 08:48 | HHI.NSPN ---
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 The patient underwent placement of right frontal external ventricular drain for acute hydrocephalus and was transferred to [facility] for further treatment of the AVM by embolization followed by suboccipital craniotomy for hematoma evacuation, and AVM resection at [facility] . Postoperatively, he was slow to wake up, his EVD was Clamped and removed at [facility] and his mental status was improving. He had UTI and agitation. He was started on Rocephin and Seroquel. The patient was being transferred back to [facility]U due to confusion and CSF leak. Labs, Micro, & Vital Signs Results Date Time Temp Pulse Resp B/P Pulse Ox O2 Delivery O2 Flow Rate FiO2 06/03/16 04:00 98.3 92 13 102/69 98 06/03/16 00:00 98.3 85 12 98/62 98 06/02/16 22:00 98.3 80 12 119/87 99 06/02/16 16:00 98.4 91 20 116/75 96 06/02/16 12:00 97.8 111 20 123/78 97 06/03/16 07:00 Intake Total 298 ml Balance 298 ml Constitutional Vital Signs Date Time Temp Pulse Resp B/P Pulse Ox O2 Delivery O2 Flow Rate FiO2 06/03/16 04:00 98.3 92 13 102/69 98 06/03/16 00:00 98.3 85 12 98/62 98 06/02/16 22:00 98.3 80 12 119/87 99 06/02/16 16:00 98.4 91 20 116/75 96 06/02/16 12:00 97.8 111 20 123/78 97 06/03/16 07:00 Intake Total 298 ml Balance 298 ml Review of Systems/Exam Exam He is alert, confused, oriented to self. Suboccipital craniectomy incision with a small dehiscense and CSF leak. Cranial nerve examination demonstrates the pupils to be equal, round, and reactive to light. Extra-ocular movements are intact with normal convergence. Facial motor function appears normal and symmetrical. Face sensation, hearing, visual vernon, and olfaction can not be assessed properly due to the patients condition. The patient has an intact corneal reflex and a gag reflex. Sternocleidomastoid and trapezius have normal and symmetrical strength. Other cranial nerves are intact. Neck is soft and supple. Cervical spine has a normal range of motion of the cervical spine without pain. There is no tenderness to palpation to the spinous processes or paraspinal muscles. Muscle testing reveals normal bulk and tone overall without rigidity, spasticity , fasciculations, or atrophy. Muscle strength is 5/5 in all muscle groups of both upper and lower extremities. Deep tendon reflexes are 1+ and symmetrical in the biceps, triceps, and brachioradialis, bilaterally, in the upper extremities. In the lower extremities , the patellar and Achilles are 1+, bilaterally. There is a bilateral plantar flexion response. Hoffmanns sign is negative. There is no clonus or other abnormal reflexes noted. Cerebellar examination is limited due to the patient condition, but no obvious deficits are noted. Medications Current Medications Current Medications IV Flush (NS Flush) 2 ml UNSCH PRN FLUSH FLUSH AFTER USING IV ACCESS; Start at 15:00; Stop 06/03/16 at 10:23; Status DC IV Flush (NS Flush) 2 ml BID FLUSH Last administered on 06/02/16at 21:00; Start 05/29/16 at 21:00; Stop 06/03/16 at 10:23; Status DC Ondansetron HCl (Zofran Inj) 4 mg Q6H PRN IVP NAUSEA OR VOMITING; Start at 15:00; Stop 06/03/16 at 14:04; Status DC Naloxone HCl 0.4 mg 0.4 mg UNSCH PRN IV SEE LABEL COMMENTS; Start 05/29/16 at 15:00 Ceftriaxone Sodium/Sodium Chloride (Rocephin Inj/NS Inj) 100 ml @ 200 mls/hr Q12H IV Last administered on 06/02/16at 04:47; Start 05/29/16 at 16:00; Stop 06/02/16 at 10:27; Status DC Acetaminophen/ Butalbital/ Caffeine (Fioricet 325-50-40) 1 tab Q6H PRN PO PAIN GREATER THAN 5 or headach Last administered on 05/31/16at 01:38; Start at 15:00 Heparin Sodium (Porcine) (Heparin Inj) 5,000 units Q12HR SQ Last administered on 06/03/16at 12:55; Start 05/29/16 at 21:00 Levetriacetam (Keppra) 500 mg Q12HR PO Last administered on 06/03/16at 12:55; Start 05/29/16 at 21:00 Metoprolol Tartrate (Lopressor) 25 mg Q12HR PO Last administered on 05/31/16at 08:33; Start 05/29/16 at 21:00; Stop 06/02/16 at 10:29; Status DC Quetiapine Fumarate 25 mg 25 mg BID PO Last administered on 06/02/16at 10:37; Start 05/29/16 at 21:00; Stop 06/02/16 at 10:53; Status DC Sodium Chloride (NS 1000 ml Inj) 1,000 ml @ 100 mls/hr Q10H IV Last administered on 06/01/16at 14:27; Start 06/01/16 at 14:30; Stop 06/02/16 at 00 :29; Status DC Morphine Sulfate (Morphine Inj) 2 mg Q3H PRN IV PUSH BREAKTHROUGH PAIN; Start 06/02/16 at 10:30 Metoprolol Tartrate (Lopressor) 50 mg Q12HR PO Last administered on 06/02/16at 21:03; Start 06/02/16 at 21:00 Quetiapine Fumarate (SEROquel) 50 mg BID PO Last administered on 06/03/16at 12: 55; Start 06/02/16 at 21:00 Diphenhydramine HCl (Benadryl 2% Cream) 1 applic TID PRN TOPICAL ITCHING; Start 06/02/16 at 11:15 Iohexol 95 ml 95 ml STK-MED ONCE IV ; Start 06/02/16 at 20:32; Stop 06/02/16 at 20:33; Status DC Sodium Chloride (NS 1000 ml Inj) 1,000 ml @ 84 mls/hr [id number] IV ; Start 06/03 at 09:45 IV Flush (NS Flush) 2 ml UNSCH PRN IV FLUSH FLUSH AFTER USING IV ACCESS; Start 06/03/16 at 09:45 IV Flush (NS Flush) 2 ml BID IV FLUSH ; Start 06/03/16 at 21:00 Acetaminophen (Tylenol) 650 mg Q6H PRN PO FEVER >100F; Start 06/03/16 at 09:45 Ondansetron HCl (Zofran Inj) 4 mg Q6H PRN IV NAUSEA OR VOMITING; Start at 09:45 Docusate Sodium (Colace) 100 mg BID PO ; Start 06/03/16 at 21:00 Sennosides (Senokot) 17.2 mg Q12H PRN PO CONSTIPATION; Start 06/03/16 at 09:45 Albuterol/ Ipratropium (Duoneb Neb) 1 ampule Q2HR NEB PRN INH WHEEZING; Start 06/03/16 at 09:45 Miscellaneous Information 1 Q361D XX ; Start 06/03/16 at 09:45 Chlorhexidine Gluconate (Chlorhexidine 2% Cloth) 3 pack Taper DAILY@04 TOP ; Start 06/04/16 at 04:00; Stop 05/31/17 at 03:59 Chlorhexidine Gluconate 3 pack 3 pack UNSCH PRN TOP HYGIENIC CARE; Start 06/03 at 09:45 Thiamine HCl/ Sodium Chloride (Thiamine Inj/NS Inj) 101 ml @ 101 mls/hr DAILY IV ; Start 06/04/16 at 09:00 Docusate Sodium (Colace) 100 mg BID PO ; Start 06/03/16 at 21:00; Status UNV Polyethylene Glycol (Miralax) 17 gm DAILY PO ; Start 06/04/16 at 09:00 Microfibriller Collagen Hemostat (Avitene Bandage) 1 bandage STK-MED ONCE .ROUTE ; Start 06/03/16 at 11:17; Stop 06/03/16 at 11:18; Status DC Thrombin (Thrombin Top Soln) 10,000 units STK-MED ONCE .ROUTE ; Start 06/03/16 at 11:17; Stop 06/03/16 at 11:18; Status DC Gelatin (Gelfoam 100 Top) 1 foam STK-MED ONCE .ROUTE ; Start 06/03/16 at 11:18 ; Stop 06/03/16 at 11:19; Status DC Cefazolin Sodium (Ancef Inj) 1,000 mg STK-MED ONCE .ROUTE ; Start 06/03/16 at 11:18; Stop 06/03/16 at 11:19; Status DC Gentamicin Sulfate (Gentamicin Inj) 240 mg STK-MED ONCE .ROUTE ; Start at 11:18; Stop 06/03/16 at 11:19; Status DC Lidocaine/ Epinephrine (Xylocaine-Epi 1%-1:100,000 Inj) 20 ml STK-MED ONCE .ROUTE ; Start 06/03/16 at 11:18; Stop 06/03/16 at 11:19; Status DC Vancomycin HCl 1000 mg 1,000 mg STK-MED ONCE .ROUTE ; Start 06/03/16 at 11:21; Stop 06/03/16 at 11:22; Status DC Cefazolin Sodium/ Dextrose (Ancef 2 Gm Premix) 50 ml @ As Directed STK-MED ONCE .ROUTE ; Start 06/03/16 at 11:22; Stop 06/03/16 at 11:23; Status DC Levetriacetam (Keppra Inj) 500 mg STK-MED ONCE IV ; Start 06/03/16 at 11:22; Stop 06/03/16 at 11:23; Status DC Bacitracin 15 applic 15 applic STK-MED ONCE .ROUTE ; Start 06/03/16 at 11:22; Stop 06/03/16 at 11:23; Status DC Sodium Chloride (NS 250 ml Inj) 250 ml @ As Directed STK-MED ONCE .ROUTE ; Start 06/03/16 at 11:22; Stop 06/03/16 at 11:23; Status DC Propofol 100 mg 100 mg ONCE ONCE IV ; Start 06/03/16 at 13:30; Stop 06/03/16 at 13:31; Status UNV Propofol (Diprivan 500 Mg/ 50 ml Inj) 50 ml @ As Directed STK-MED ONCE .ROUTE ; Start 06/03/16 at 13:32; Stop 06/03/16 at 13:33; Status DC Medical Decision Making MDM Remarks Last Impressions Head CT 06/02/16 0000 Signed Impressions: Service Date/Time: Thursday, June 02, 2016 20:00 - CONCLUSION: Postoperative partial occipital craniectomy for treatment of arteriovenous malformation with vascular coils present in the operative bed. There is encephalomalacia in the posterior fossa involving the posterior cerebellum more so on the left side. No new intracranial hemorrhage. Resolution of previous intraventricular hemorrhage. Removal of previous ventriculostomy. Kirk Cortes MD Plan Plan Remarks (1) AVM (arteriovenous malformation) brain ICD Code: Q28.2 Status: Acute (2) Encephalopathy, traumatic ICD Code: F07.81 Status: Acute (3) UTI (urinary tract infection) ICD Code: N39.0 Status: Acute (4) Agitation ICD Code: R45.1 Status: Acute (5) Cerebellar hemorrhage ICD Code: I61.4 Status: Acute Attending Statement status post AVM embolization followed by suboccipital craniotomy for hematoma evacuation and AVM resection at [facility]. Postoperatively, he developed a CSF leak. I attempted to take him to the OR for exploration and closure, however he was not NPO. A bedside ventriculostomy will be placed. Respiratory: NC to maintain saturations greater than equal to 92% - Incentive spirometry while awake Hypertension Metoprol currently 50 milligrams by mouth twice a day PT and OT Cervical and thoracic fractures. Continue [place] J collar. MRI of cervical spine in 24-48hrs. Non surgical pain control with narcotic analgesics Nutrition. Start tube feedings Renal. Continue to monitor closely urine output, BUN and creatinine Endocrine. Continue to Monitor serial Acu checks and SSI as needed in detail ID continue to monitor for signs of infection Continue Protonix for stress ulcer prophylaxis Blane littlejohn and SCD's for DVT prophylaxis John Flowers MD Jun 03, 2016 08:48
[2016-06-03] MEDS: METOPROLOL TARTRATE 50 MG TAB PO SCH ×2 (09:00→20:29)
[2016-06-03] MEDS ORDERED: RESP: ALBUTEROL 2.5 MG/IPRATROPIUM 0.5 MG NEB (PRN) INH (09:45)
[2016-06-03] MEDS ORDERED: MISCELLANEOUS NURSING INFORMATION XX SCH (09:45)
[2016-06-03] MEDS ORDERED: CHLORHEXIDINE GLUCONATE 2 % 1 PACK (2 CLOTHS) TOP PRN (09:45)
[2016-06-03] MEDS ORDERED: SODIUM CHLORIDE 0.9% FLUSH 5 ML FLUSH IV FLUSH PRN (09:45)
--- NOTE | 2016-06-03 09:55 | HHI.CCPN ---
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 The patient underwent placement of right frontal external ventricular drain for acute hydrocephalus and was transferred to [facility] for further treatment of the AVM by embolization followed by suboccipital craniotomy for hematoma evacuation and AVM resection. Postoperatively, he was slow to wake up, his EVD was Clamped and removed and his mental status was improving. Other complications include the UTI and agitation. He was started on Rocephin and Seroquel. The patient is being transferred back to [facility]U due to confusion and questionable CSF leak. Subjective 06/03: Noted AVM embolization followed by suboccipital craniotomy for hematoma evacuation and AVM resection. Postoperatively, he was slow to wake up and a head CT showed herniation.. Noted CT last night revealed status post partial occipital craniotomy changes with Coils. Currently afebrile. Arousable and will follow commands but won't open eyes. Noted to have leaking from the occipital region plan to go back to or for suturing with neurosurgery. Objective Vital Signs Date Time Temp Pulse Resp B/P Pulse Ox O2 Delivery O2 Flow Rate FiO2 06/03/16 04:00 98.3 92 13 102/69 98 Intake and Output 06/02/16 06/02/16 06/02/16 07:59 15:59 23:59 Intake Total 120 ml 178 ml Balance 120 ml 178 ml Result Diagram: 06/02/16 1119 06/02/16 1119 Imaging Last Impressions Head CT 06/02/16 0000 Signed Impressions: Service Date/Time: Thursday, June 02, 2016 20:00 - CONCLUSION: Postoperative partial occipital craniectomy for treatment of arteriovenous malformation with vascular coils present in the operative bed. There is encephalomalacia in the posterior fossa involving the posterior cerebellum more so on the left side. No new intracranial hemorrhage. Resolution of previous intraventricular hemorrhage. Removal of previous ventriculostomy. Kirk Cortes MD Objective Remarks GENERAL: 55-year-old male, critically ill currently resting in bed SKIN: Warm and dry. No rash HEAD: Open Occipital region with drainage/CSF leak Post occipital craniotomy EYES: No scleral icterus. No injection or drainage. NECK: Supple, trachea midline. No JVD or lymphadenopathy. CARDIOVASCULAR: Regular rate and rhythm without murmurs, gallops, or rubs. RESPIRATORY: Breath sounds equal bilaterally. No accessory muscle use. GASTROINTESTINAL: Abdomen soft, non-tender, nondistended. MUSCULOSKELETAL: No cyanosis, or edema. Neuro: Moves all 4 extremity spontaneously. Currently not opening eyes to command, however answers 1-2 word responses to questions. A/P Problem List: (1) AVM (arteriovenous malformation) brain ICD Code: Q28.2 Status: Acute (2) Encephalopathy, traumatic ICD Code: F07.81 Status: Acute (3) UTI (urinary tract infection) ICD Code: N39.0 Status: Acute (4) Agitation ICD Code: R45.1 Status: Acute (5) Cerebellar hemorrhage ICD Code: I61.4 Status: Acute Assessment and Plan Neurologic/Psych: Intracranial hemorrhage Pial AVM Subarachnoid hemorrhage Mild Encephalopathy CSF leak?? - status post AVM embolization followed by suboccipital craniotomy for hematoma evacuation and AVM resection at [facility]. Postoperatively, he was slow to wake up and a head CT showed herniation. - neuro checks per unit protocol - Neurosurgery following, Dr. Flowers. Plan to repair his left leg - Keppra 500 mg twice a day for seizure prophylaxis - Seroquel for agitation control currently on hold with altered mental status - CT of head 06/02 revealed partial occipital craniotomy with coiling. Respiratory: - NC to maintain saturations greater than equal to 92% - Incentive spirometry while awake Cardiovascular: Hypertension - Metoprol currently 50 milligrams by mouth twice a day - continue Telemetry Renal: - Strict I/Os - attempt euvolemia FEN/GI: Acute protein calorie malnutritionmild Hypernatremia - ICU electrolyte protocol - bowel regimen to prevent straining on bowel movement - Daily BMP Heme/ID: - No infectious etiology suspected this time - Does not meet transfusion triggers at this time. - Daily CBC Endocrine: - SSI if needed Prophylaxis: GI Prophylaxis Protonix 40 mg IV daily 24 hours: Intracranial pathology DVT Prophylaxis - SCDs - Heparin subQ Critical Care: The total critical care time was 35 minutes. Time to perform other separately billable procedures was not included in the critical care time. Problem Qualifiers (1) UTI (urinary tract infection): (2) Cerebellar hemorrhage: Qualified Code: I61.4 - Nontraumatic intracerebral hemorrhage of cerebellum, unspecified laterality Darrick Dasilva MD Jun 03, 2016 09:54
[2016-06-03] MEDS ORDERED: MICROFIBRILLAR COLLAGEN HEMOSTAT 70 X 35 MM BANDAGE ONE (11:17)
[2016-06-03] MEDS ORDERED: THROMBIN (TOPICAL) 5,000 UNIT VIAL ONE (11:17)
[2016-06-03] MEDS ORDERED: GENTAMICIN SULFATE 80 MG/2 ML VIAL ONE (11:18)
[2016-06-03] MEDS ORDERED: ceFAZolin INJ 1,000 MG VIAL ONE (11:18)
[2016-06-03] MEDS ORDERED: GELFOAM SIZE 100 ONE (11:18)
[2016-06-03] MEDS ORDERED: LIDOCAINE 1%/EPINEPHrine 1:100,000 SOLN 20 ML VIAL ONE (11:18)
[2016-06-03] MEDS ORDERED: VANCOMYCIN HCL 1000 MG VIAL ONE (11:21)
[2016-06-03] MEDS ORDERED: SODIUM CHLOR 0.9% 250 ML INJ 250 ML ONE (11:22)
[2016-06-03] MEDS ORDERED: levETIRAcetam 500 MG/5 ML VIAL IV ONE (11:22)
[2016-06-03] MEDS ORDERED: ceFAZolin 2 GM PREMIX 50 ML ONE (11:22)
[2016-06-03] MEDS ORDERED: BACITRACIN TOP OINT 15 GM TUBE ONE (11:22)
[2016-06-03] MEDS: QUEtiapine FUMARATE 25 MG TAB PO SCH ×2 (12:55→20:29)
[2016-06-03] MEDS: levETIRAcetam 500 MG TAB PO SCH ×2 (12:55→20:29)
[2016-06-03] MEDS: HEPARIN SODIUM - SQ 10,000 UNITS/ML VIAL SQ SCH ×2 (12:55→20:29)
[2016-06-03 13:25] LABS: AUTOMATED NEUTROPHIL # 7.2 TH/MM3 (1.8-7.7); BASOPHIL % 0.5 % (0.0-2.0); EOSINOPHIL # 0.3 TH/MM3 (0-0.4); EOSINOPHIL % 3.5 % (0.0-4.0); HEMO FLAGS DIFF FINAL; LYMPH % 12.6 % (9.0-44.0); LYMPHOCYTE # 1.1 TH/MM3 (1.0-4.8); MEAN CELL VOLUME 90.3 FL (80.0-100.0); MEAN CORPUSCULAR HGB CONC 33.2 % (32.0-36.0); MONO % 4.2 % (0.0-8.0); NEUT % 79.2 % (16.0-70.0); PLATELET COUNT 275 TH/MM3 (150-450); RED BLOOD COUNT 4.42 MIL/MM3 (4.50-5.90); RED CELL DISTRIBUTION WIDTH 14.6 % (11.6-17.2)
[2016-06-03] MEDS ORDERED: PROPOFOL 500 MG/50 ML INJ 50 ML ONE (13:32)
[2016-06-03] MEDS ORDERED: PROPOFOL 500 MG/50 ML BTL IV ONE (13:33)
[2016-06-03 13:40] LABS: PROTHROMBIN TIME - PATIENT 11.6 SEC (9.8-11.6)
[2016-06-03 13:44] LABS: ALT (GPT) 70 U/L (12-78); ANION GAP 9 MEQ/L (5-15); AST (GOT) 19 U/L (15-37); BICARBONATE 29.9 MEQ/L (21.0-32.0); BLOOD UREA NITROGEN 15 MG/DL (7-18); CHLORIDE 109 MEQ/L (98-107); GLOMERULAR FILTRATION RATE 116 ML/MIN (>89); MAGNESIUM 2.3 MG/DL (1.5-2.5); POTASSIUM 4.1 MEQ/L (3.5-5.1); SODIUM (NA) 148 MEQ/L (136-145)
[2016-06-03 13:47] LABS: ALKALINE PHOSPHATASE 109 U/L (45-117); TOTAL BILIRUBIN ADULT 0.2 MG/DL (0.2-1.0)
--- NOTE | 2016-06-03 14:59 | PD.OP ---
Operative Report Date of Surgery: Jun 03, 2016 Preoperative Diagnosis: CSF leak Postoperative Diagnosis: CSF leak Procedure: Right frontal Paris hole with placement of a ventriculostomy catheter Anesthesia: local Surgeon: John Flowers Mate Chief(s): RAMSES Operation and Findings: INDICATIONS FOR THE PROCEDURE Mr Badillo is a 55 year old male who was brought to [facility] from [facility] following a suboccipital craniectomy for treatment of a cerebellar AVM. He developed CSF leak through his incision. Placement of a venriculostomy catheter was indicated The [id number] details of the procedure, its indications, alternatives, risks and potential complications were fully discussed with the patients family. She fully understood. All questions were answered. No guarantees were given. The patient voiced requesting the procedure and provided informed consents. The patient familywas offered the alternative of not having aggressive management. DETAILS OF THE SURGICAL PROCEDURE The frontal area was shaved, prepped and draped in the usual sterile fashion. An entry point was selected on the right frontal region 90 millimeters posterior to the supraorbital rim and 25 millimeters from the midline. The area was infiltrated with 1% lidocaine with epinephrine. A skin incision was made with a #15 blade down to the level of the periosteum. Using a twist drill, a sima hole was made. The dura was carefully opened with a brain needle and a ventriculostomy catheter was advanced into the ventricular system. At a depth of 60 millimeters, cerebrospinal fluid was obtained. Opening pressure was 2-3 centimeters of water. A specimen of cerebrospinal fluid was collected and sent to the lab for analysis of the glucose, protein, cell count and cultures. The catheter was then tunneled under the galea and externalized through a separate stab incision. The incision was closed with 3-0 nylon in a single plane. The patient tolerated the procedure well. COMPLICATIONS There were no intraoperative complications. BLOOD LOSS Blood loss was minimal. John Flowers MD Jun 03, 2016 14:59
[2016-06-03] MEDS: SODIUM CHLOR 0.9% 1000 ML INJ 1,000 ML IV SCH ×3 (15:18→21:40)
--- NOTE | 2016-06-03 17:43 | MG ---
cc: MAGGIE PETTIT Lab No: Date: 06/03/2016 Age: Sex: M Race: ELECTROENCEPHALOGRAM NUMBER [id number] Hyperventilation is not performed. IDENTIFICATION Intubated in field. Hematoma of the brain. MEDICATIONS 1. Keppra. 2. Heparin. 3. Seroquel. 4. Thiamine. 5. Fioricet. DESCRIPTION A symmetrical 8 Hz 60 microvolts posterior and diffuse rhythm is seen. Occasional mild theta slowing is seen diffusely. I do not see any epileptiform or seizure activity. Hyperventilation is not performed. Photic stimulation is performed without any significant posterior driving. IMPRESSION A normal EEG. No evidence for a focal or diffuse abnormality. MD RAIMUNDO BreauxM/KK /5:07 PM /5:36 PM
[2016-06-03 17:58] LABS: GROSS BLOOD TUBE #1 3+ (0); VOLUME TUBE # 1 2.5 ML
[2016-06-03 17:59] LABS: CSF EOSINOPHILS 1 %; CSF LYMPHOCYTES 14 %; CSF MONOCYTES 1 %; CSF NEUTROPHILS 82 %; WBC TUBE #1 169 /MM3 (0-10)
[2016-06-03 18:19] LABS: SUPERNATE COLOR TUBE #1 CLEAR (CLEAR)
[2016-06-03] MEDS: DOCUSATE SODIUM 100 MG CAP PO SCH (20:30)
[2016-06-03] MEDS: SODIUM CHLORIDE 0.9% FLUSH 5 ML FLUSH IV FLUSH SCH (20:30)
[2016-06-03] MEDS: ACETAMIN 325 MG/BUTALBITAL 50 MG/CAFFEINE 40 MG TAB PO PRN (20:55)
[2016-06-03] MEDS ORDERED: DOCUSATE SODIUM 100 MG CAP PO SCH (21:00)
[2016-06-03] MEDS ORDERED: VANCOMYCIN INJ 1,000 MG in SODIUM CHLOR 0.9% 250 ML INJ 250 ML IV PRN (21:30)
[2016-06-03] MEDS ORDERED: ceFAZolin 2 GM PREMIX 50 ML IV PRN (21:30)
[2016-06-04] VITALS (8 sets, daily range): BP systolic 96–116; BP diastolic 55–77; PULSE 64–85; RESP 13–26; TEMP 97.9–99; O2SAT 94–100
[2016-06-04] MEDS: CHLORHEXIDINE GLUCONATE 2 % 1 PACK (2 CLOTHS) TOP SCH (03:23)
[2016-06-04 03:56] LABS: HEMATOCRIT 38.2 % (39.0-51.0); MEAN CELL VOLUME 91.6 FL (80.0-100.0); MEAN CORPUSCULAR HEMOGLOBIN 30.4 PG (27.0-34.0); MEAN CORPUSCULAR HGB CONC 33.2 % (32.0-36.0); PLATELET COUNT 265 TH/MM3 (150-450); RED BLOOD COUNT 4.17 MIL/MM3 (4.50-5.90); RED CELL DISTRIBUTION WIDTH 14.8 % (11.6-17.2); REVIEW FLAG FINAL; WHITE BLOOD COUNT 10.2 TH/MM3 (4.0-11.0)
[2016-06-04 04:22] LABS: BICARBONATE 29.4 MEQ/L (21.0-32.0); POTASSIUM 4.2 MEQ/L (3.5-5.1)
--- NOTE | 2016-06-04 07:31 | HHI.CCPN ---
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 The patient underwent placement of right frontal external ventricular drain for acute hydrocephalus and was transferred to [facility] for further treatment of the AVM by embolization followed by suboccipital craniotomy for hematoma evacuation and AVM resection. Postoperatively, he was slow to wake up, his EVD was Clamped and removed and his mental status was improving. Other complications include the UTI and agitation. He was started on Rocephin and Seroquel. The patient is being transferred back to [facility]U due to confusion and questionable CSF leak. 06/03: Noted AVM embolization followed by suboccipital craniotomy for hematoma evacuation and AVM resection. Postoperatively, he was slow to wake up and a head CT showed herniation.. Noted CT last night revealed status post partial occipital craniotomy changes with Coils. Currently afebrile. Arousable and will follow commands but won't open eyes. Noted to have leaking from the occipital region plan to go back to or for suturing with neurosurgery. Subjective 06/04: Tmax 99. 3 problems overnight. Received 1 dose of Cafergot overnight for headache. Noted placement of a right ventriculostomy secondary to CSF leak yesterday. Patient is arousable. Tolerating tube feeding currently. Objective Vital Signs Date Time Temp Pulse Resp B/P Pulse Ox O2 Delivery O2 Flow Rate FiO2 06/04/16 04:00 99.0 64 26 108/63 100 06/03/16 19:30 Room Air 06/03/16 11:04 21 Intake and Output 06/03/16 06/03/16 06/04/16 08:00 16:00 00:00 Intake Total 375 ml 694 ml Output Total 374 ml 428 ml Balance 1 ml 266 ml Result Diagram: 06/04/16 0150 06/04/16 0150 Other Results Microbiology Date/Time Procedure Status Source Growth 06/03/16 14:15 Gram Stain - Final Resulted Cerebral Spinal Fluid Shunt Fluid 06/03/16 14:15 CSF Culture - Preliminary Resulted Cerebral Spinal Fluid Shunt Fluid NO GROWTH IN 24 HOURS. Imaging Last Impressions Head CT 06/02/16 0000 Signed Impressions: Service Date/Time: Thursday, June 02, 2016 20:00 - CONCLUSION: Postoperative partial occipital craniectomy for treatment of arteriovenous malformation with vascular coils present in the operative bed. There is encephalomalacia in the posterior fossa involving the posterior cerebellum more so on the left side. No new intracranial hemorrhage. Resolution of previous intraventricular hemorrhage. Removal of previous ventriculostomy. Kirk Cortes MD Objective Remarks GENERAL: 55-year-old male, critically ill currently resting in bed in no acute distress SKIN: Warm and dry. No rash HEAD: Open Occipital region with drainage/CSF leak Post occipital craniotomy. Right ventriculostomy currently covered with Kerlix EYES: No scleral icterus. No injection or drainage. NECK: Supple, trachea midline. No JVD or lymphadenopathy. CARDIOVASCULAR: Regular rate and rhythm without murmurs, gallops, or rubs. RESPIRATORY: Breath sounds equal bilaterally. No accessory muscle use. GASTROINTESTINAL: Abdomen soft, non-tender, nondistended. MUSCULOSKELETAL: No cyanosis, or edema. Neuro: Moves all 4 extremity spontaneously. Currently not opening eyes to command, however answers 1-2 word responses to questions. A/P Problem List: (1) AVM (arteriovenous malformation) brain ICD Code: Q28.2 Status: Acute (2) Encephalopathy, traumatic ICD Code: F07.81 Status: Acute (3) UTI (urinary tract infection) ICD Code: N39.0 Status: Acute (4) Agitation ICD Code: R45.1 Status: Acute (5) Cerebellar hemorrhage ICD Code: I61.4 Status: Acute Assessment and Plan Neurologic/Psych: Intracranial hemorrhage Pial AVM Subarachnoid hemorrhage Mild Encephalopathy CSF leak?? - status post AVM embolization followed by suboccipital craniotomy for hematoma evacuation and AVM resection at [facility]. Postoperatively, he was slow to wake up and a head CT showed herniation. - neuro checks per unit protocol - Neurosurgery following, Dr. Flowers. Status post right ventriculostomy 06/03 - -5 cm H2O at 86 cc yellowish - Keppra 500 mg twice a day for seizure prophylaxis - Seroquel for agitation control currently on hold with altered mental status - CT of head 06/02 revealed partial occipital craniotomy with coiling. - Currently on Seroquel 50 mg twice a day Respiratory: - NC to maintain saturations greater than equal to 92% - Incentive spirometry while awake Cardiovascular: Hypertension - Metoprol currently 50 milligrams by mouth twice a day - continue Telemetry Renal: - Strict I/Os - attempt euvolemia FEN/GI: Acute protein calorie malnutritionmild Hypernatremia - Currently on Jevity 1.5 goal 50 cc an hour - ICU electrolyte protocol - Pepcid for GI prophylaxis -Colace/MiraLAX for bowel regimen. 3 BM overnight - Daily BMP Heme Normocytic anemia - Does not meet transfusion triggers at this time. - Daily CBC ID - No infectious etiology suspected this time Noted on CSF WBC 169 - 82% neutrophils and glucose 69/protein 77 high Pertinent cultures 06/03 - CSF - no organisms Endocrine: - SSI if needed Prophylaxis: GI Prophylaxis Pepcid 20 mg twice a day: Intracranial pathology DVT Prophylaxis - SCDs - Heparin subQ Critical Care: The total critical care time was 35 minutes. Time to perform other separately billable procedures was not included in the critical care time. Problem Qualifiers (1) UTI (urinary tract infection): (2) Cerebellar hemorrhage: Qualified Code: I61.4 - Nontraumatic intracerebral hemorrhage of cerebellum, unspecified laterality Darrick Dasilva MD Jun 04, 2016 07:31
[2016-06-04] MEDS: DOCUSATE SODIUM 100 MG CAP PO SCH ×2 (09:00→20:46)
[2016-06-04] MEDS: METOPROLOL TARTRATE 50 MG TAB PO SCH ×2 (09:00→20:47)
[2016-06-04] MEDS: POLYETHYLENE GLYCOL 17 GM PKG PO SCH (09:00)
[2016-06-04] MEDS: SODIUM CHLORIDE 0.9% FLUSH 5 ML FLUSH IV FLUSH SCH ×2 (09:23→20:46)
[2016-06-04] MEDS: THIAMINE INJ 100 MG in SODIUM CHLORIDE 0.9% INJ 100 ML IV SCH (09:23)
[2016-06-04] MEDS: FAMOTIDINE 20 MG TAB NG SCH ×2 (09:23→20:46)
[2016-06-04] MEDS: QUEtiapine FUMARATE 25 MG TAB PO SCH ×2 (09:23→20:46)
[2016-06-04] MEDS: HEPARIN SODIUM - SQ 10,000 UNITS/ML VIAL SQ SCH ×2 (09:23→20:47)
[2016-06-04] MEDS: SODIUM CHLOR 0.9% 1000 ML INJ 1,000 ML IV SCH ×2 (09:24→17:40)
[2016-06-04] MEDS: levETIRAcetam 500 MG TAB PO SCH ×2 (09:36→20:46)
[2016-06-04] MEDS: FREE WATER G-TUBE SCH ×2 (12:27→17:40)
[2016-06-04] MEDS: ACETAMIN 325 MG/BUTALBITAL 50 MG/CAFFEINE 40 MG TAB PO PRN ×2 (12:28→20:46)
--- NOTE | 2016-06-04 13:47 | HHI.NSPN ---
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 The patient underwent placement of right frontal external ventricular drain for acute hydrocephalus and was transferred to [facility] for further treatment of the AVM by embolization followed by suboccipital craniotomy for hematoma evacuation, and AVM resection at [facility] . Postoperatively, he was slow to wake up, his EVD was Clamped and removed at [facility] and his mental status was improving. He had UTI and agitation. He was started on Rocephin and Seroquel. The patient was being transferred back to ISU due to confusion and CSF leak. 06/04: s/p placement of ventriculostomy drain. no further leaking noted from posterior fossa wound, there has been scab formation also. Labs, Micro, & Vital Signs Results Date Time Temp Pulse Resp B/P Pulse Ox O2 Delivery O2 Flow Rate FiO2 06/04/16 13:30 12 06/04/16 12:00 98.2 85 15 116/77 98 06/04/16 10:02 100 21 06/04/16 08:00 98.4 78 21 96/64 97 06/04/16 07:00 95 Room Air 06/04/16 04:00 99.0 64 26 108/63 100 06/04/16 02:00 99.0 74 20 104/66 100 06/03/16 20:00 99.3 90 16 109/70 100 06/03/16 19:30 100 Room Air 06/03/16 19:30 97 06/03/16 16:00 98.0 80 16 109/70 99 06/04/16 07:00 Intake Total 2068 ml Output Total 1036 ml Balance 1032 ml Constitutional Vital Signs Date Time Temp Pulse Resp B/P Pulse Ox O2 Delivery O2 Flow Rate FiO2 06/04/16 13:30 12 06/04/16 12:00 98.2 85 15 116/77 98 06/04/16 10:02 100 21 06/04/16 08:00 98.4 78 21 96/64 97 06/04/16 07:00 95 Room Air 06/04/16 04:00 99.0 64 26 108/63 100 06/04/16 02:00 99.0 74 20 104/66 100 06/03/16 20:00 99.3 90 16 109/70 100 06/03/16 19:30 100 Room Air 06/03/16 19:30 97 06/03/16 16:00 98.0 80 16 109/70 99 06/04/16 07:00 Intake Total 2068 ml Output Total 1036 ml Balance 1032 ml Review of Systems/Exam Exam He is alert, confused, oriented to self. Confused but follows few simple commands. Suboccipital craniectomy incision with a small dehiscence with scab formation, no leaking noted today Ventriculostomy drain in place, intact, site is clean. Cranial nerve examination: pupils 2 mm round, and reactive to light. Facial motor function appears normal and symmetrical. Neck is soft and supple. Motor: moves all four extremities well Cerebellar examination is limited due to the patient condition, but no obvious deficits are noted. Medications Current Medications Current Medications Medications (Trade) Dose Ordered Sig/Paula Route PRN Reason Start Time Stop Time Status Last Admin Dose Admin Naloxone HCl (Narcan Inj) 0.4 mg UNSCH PRN IV SEE LABEL COMMENTS 05/29/16 15:00 Acetaminophen/ Butalbital/ Caffeine (Fioricet 325-50-40) 1 tab Q6H PRN PO PAIN GREATER THAN 5 or headach 05/29/16 15:00 06/04/16 12:28 Heparin Sodium (Porcine) (Heparin Inj) 5,000 units Q12HR SQ 05/29/16 21:00 06/04/16 09:23 Levetriacetam (Keppra) 500 mg Q12HR PO 05/29/16 21:00 06/04/16 09:36 Morphine Sulfate (Morphine Inj) 2 mg Q3H PRN IV PUSH BREAKTHROUGH PAIN 06/02/16 10:30 Metoprolol Tartrate (Lopressor) 50 mg Q12HR PO 06/02/16 21:00 06/03/16 20:29 Quetiapine Fumarate (SEROquel) 50 mg BID PO 06/02/16 21:00 06/04/16 09:23 Diphenhydramine HCl (Benadryl 2% Cream) 1 applic TID PRN TOPICAL ITCHING 06/02/16 11:15 IV Flush (NS Flush) 2 ml UNSCH PRN IV FLUSH FLUSH AFTER USING IV ACCESS 06/03/16 09:45 IV Flush (NS Flush) 2 ml BID IV FLUSH 06/03/16 21:00 06/04/16 09:23 Acetaminophen (Tylenol) 650 mg Q6H PRN PO FEVER >100F 06/03/16 09:45 Ondansetron HCl (Zofran Inj) 4 mg Q6H PRN IV NAUSEA OR VOMITING 06/03/16 09:45 Docusate Sodium (Colace) 100 mg BID PO 06/03/16 21:00 06/03/16 20:30 Sennosides (Senokot) 17.2 mg Q12H PRN PO CONSTIPATION 06/03/16 09:45 Miscellaneous Information 1 Q361D XX 06/03/16 09:45 Chlorhexidine Gluconate (Chlorhexidine 2% Cloth) 3 pack Taper DAILY@04 TOP 06/04/16 04:00 05/31/17 03:59 06/04/16 03:23 Chlorhexidine Gluconate 3 pack 3 pack UNSCH PRN TOP HYGIENIC CARE 06/03/16 09:45 Thiamine HCl/ Sodium Chloride (Thiamine Inj/NS Inj) 101 ml @ 101 mls/hr DAILY IV 06/04/16 09:00 06/04/16 09:23 Polyethylene Glycol 17 gm 17 gm DAILY PO 06/04/16 09:00 Sodium Chloride (NS 1000 ml Inj) 1,000 ml @ 100 mls/hr Q10H IV 06/03/16 21:16 06/04/16 09:24 Chlorhexidine Gluconate (Hibiclens 4% Top Soln) 1 applic HS TOP 06/04/16 21:00 06/05/16 21:01 Water (Free Water) VOLUME: 100 ML Q6HR G-TUBE 06/04/16 12:00 06/04/16 12:27 Famotidine (Pepcid) 20 mg BID NG 06/04/16 09:00 06/04/16 09:23 Medical Decision Making MDM Remarks 55 y/o male s/p posterior fossa craniectomy for evacuation of cerebellar bleed due to AVM with embolization at [facility] s/p ventriculostomy placement for CSF leak Plan Plan Remarks cont ventriculostomy draining, monitor wound for further drainage keep clean and dry ok for PT, OOB to chair dw patient and nursing Anusha Hastings Jun 04, 2016 13:47
[2016-06-04] MEDS: CHLORHEXIDINE GLUCONATE 4% SOLN 120 ML BTL TOP SCH (20:47)
[2016-06-05] VITALS (7 sets, daily range): BP systolic 91–123; BP diastolic 51–74; PULSE 67–84; RESP 11–18; TEMP 97.9–98.9; O2SAT 94–100
[2016-06-05] MEDS: SODIUM CHLOR 0.9% 1000 ML INJ 1,000 ML IV SCH ×3 (02:31→22:23)
[2016-06-05] MEDS: CHLORHEXIDINE GLUCONATE 2 % 1 PACK (2 CLOTHS) TOP SCH (03:20)
[2016-06-05] MEDS: FREE WATER G-TUBE SCH ×5 (05:46→23:43)
[2016-06-05] MEDS: FAMOTIDINE 20 MG TAB NG SCH ×2 (08:32→20:36)
[2016-06-05] MEDS: DOCUSATE SODIUM 100 MG CAP PO SCH ×2 (08:33→20:35)
[2016-06-05] MEDS: SODIUM CHLORIDE 0.9% FLUSH 5 ML FLUSH IV FLUSH SCH ×2 (08:33→20:36)
[2016-06-05] MEDS: QUEtiapine FUMARATE 25 MG TAB PO SCH ×2 (08:33→20:36)
[2016-06-05] MEDS: levETIRAcetam 500 MG TAB PO SCH ×2 (08:33→20:35)
[2016-06-05] MEDS: HEPARIN SODIUM - SQ 10,000 UNITS/ML VIAL SQ SCH ×2 (08:33→20:35)
[2016-06-05] MEDS: THIAMINE INJ 100 MG in SODIUM CHLORIDE 0.9% INJ 100 ML IV SCH (08:33)
[2016-06-05] MEDS: POLYETHYLENE GLYCOL 17 GM PKG PO SCH (08:34)
[2016-06-05] MEDS: METOPROLOL TARTRATE 50 MG TAB PO SCH (08:34)
--- NOTE | 2016-06-05 09:05 | HHI.CCPN ---
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 The patient underwent placement of right frontal external ventricular drain for acute hydrocephalus and was transferred to [facility] for further treatment of the AVM by embolization followed by suboccipital craniotomy for hematoma evacuation and AVM resection. Postoperatively, he was slow to wake up, his EVD was Clamped and removed and his mental status was improving. Other complications include the UTI and agitation. He was started on Rocephin and Seroquel. The patient is being transferred back to ISU due to confusion and questionable CSF leak. 06/03: Noted AVM embolization followed by suboccipital craniotomy for hematoma evacuation and AVM resection. Postoperatively, he was slow to wake up and a head CT showed herniation.. Noted CT last night revealed status post partial occipital craniotomy changes with Coils. Currently afebrile. Arousable and will follow commands but won't open eyes. Noted to have leaking from the occipital region plan to go back to or for suturing with neurosurgery. 06/04: Tmax 99. 3 problems overnight. Received 1 dose of Cafergot overnight for headache. Noted placement of a right ventriculostomy secondary to CSF leak yesterday. Patient is arousable. Tolerating tube feeding currently. Subjective 06/05: Afebrile. Mentation somewhat improved. Positive BM 4. Tolerating tube feeding. Will follow commands. Answers questions appropriately. Objective Vital Signs Date Time Temp Pulse Resp B/P Pulse Ox O2 Delivery O2 Flow Rate FiO2 06/05/16 07:00 97 Room Air 06/05/16 04:00 75 11 119/67 06/05/16 00:00 98.0 06/04/16 10:02 21 Intake and Output 06/04/16 06/04/16 06/05/16 08:00 16:00 00:00 Intake Total 999 ml 1180 ml 963 ml Output Total 234 ml 300 ml 383 ml Balance 765 ml 880 ml 580 ml Result Diagram: 06/04/16 0150 06/04/16 0150 Imaging Last Impressions Head CT 06/02/16 0000 Signed Impressions: Service Date/Time: Thursday, June 02, 2016 20:00 - CONCLUSION: Postoperative partial occipital craniectomy for treatment of arteriovenous malformation with vascular coils present in the operative bed. There is encephalomalacia in the posterior fossa involving the posterior cerebellum more so on the left side. No new intracranial hemorrhage. Resolution of previous intraventricular hemorrhage. Removal of previous ventriculostomy. Kirk Cortes MD Objective Remarks GENERAL: 55-year-old male, critically ill currently resting in bed in no acute distress SKIN: Warm and dry. No rash HEAD: Open Occipital region with drainage/CSF leak Post occipital craniotomy. Right ventriculostomy currently covered with Kerlix EYES: No scleral icterus. No injection or drainage. NECK: Supple, trachea midline. No JVD or lymphadenopathy. CARDIOVASCULAR: Bradycardic, RR. S1, S2. No S4. Without murmurs, gallops, or rubs. RESPIRATORY: Breath sounds equal bilaterally. No accessory muscle use. GASTROINTESTINAL: Abdomen soft, non-tender, nondistended. MUSCULOSKELETAL: No cyanosis, or edema. Neuro: Moves all 4 extremity spontaneously. He is opening his eyes to command , and will answers 1-2 word responses to questions. A/P Problem List: (1) AVM (arteriovenous malformation) brain ICD Code: Q28.2 Status: Acute (2) Encephalopathy, traumatic ICD Code: F07.81 Status: Acute (3) UTI (urinary tract infection) ICD Code: N39.0 Status: Acute (4) Agitation ICD Code: R45.1 Status: Acute (5) Cerebellar hemorrhage ICD Code: I61.4 Status: Acute Assessment and Plan Neurologic/Psych: Intracranial hemorrhage Pial AVM Subarachnoid hemorrhage Mild Encephalopathy CSF leak?? - status post AVM embolization followed by suboccipital craniotomy for hematoma evacuation and AVM resection at [facility]. Postoperatively, he was slow to wake up and a head CT showed herniation. - neuro checks per unit protocol - Neurosurgery following, Dr. Flowers. Status post right ventriculostomy 06/03 - -5 cm H2O at 152 cc clear/yellowish - Keppra 500 mg twice a day for seizure prophylaxis - Seroquel for agitation control currently on hold with altered mental status - CT of head 06/02 revealed partial occipital craniotomy with coiling. - EEG 06/03 read as normal. No seizure activity. - Currently on Seroquel 50 mg twice a day Respiratory: - NC to maintain saturations greater than equal to 92% - Incentive spirometry while awake Cardiovascular: Hypertension - Metoprol currently 12.5 milligrams by mouth twice a day with holding parameters for hypotension - continue Telemetry Renal: - Strict I/Os - attempt euvolemia FEN/GI: Acute protein calorie malnutritionmild Hypernatremia - Currently on Jevity 1.5 goal 50 cc an hour - Added free water 100 cc every 6 - ICU electrolyte protocol - Pepcid for GI prophylaxis -Colace/MiraLAX for bowel regimen. 4 BM overnight - Daily BMP Heme Normocytic anemia - Does not meet transfusion triggers at this time. - Daily CBC ID - No infectious etiology suspected this time Noted on CSF WBC 169 - 82% neutrophils and glucose 69/protein 77 high Pertinent cultures 06/03 - CSF - no organisms Endocrine: - SSI if needed Prophylaxis: GI Prophylaxis Pepcid 20 mg twice a day: DVT Prophylaxis - SCDs - Heparin subQ Critical Care: The total critical care time was 35 minutes. Time to perform other separately billable procedures was not included in the critical care time. Problem Qualifiers (1) UTI (urinary tract infection): (2) Cerebellar hemorrhage: Qualified Code: I61.4 - Nontraumatic intracerebral hemorrhage of cerebellum, unspecified laterality Darrick Dasilva MD Jun 05, 2016 09:05 Darrick Dasilva MD Jun 05, 2016 09:05
[2016-06-05 09:46] LABS: AUTOMATED NEUTROPHIL # 5.3 TH/MM3 (1.8-7.7); BASOPHIL # 0.1 TH/MM3 (0-0.2); BASOPHIL % 0.8 % (0.0-2.0); EOSINOPHIL # 0.4 TH/MM3 (0-0.4); EOSINOPHIL % 4.9 % (0.0-4.0); HEMATOCRIT 37.7 % (39.0-51.0); HEMO FLAGS DIFF FINAL; LYMPH % 16.7 % (9.0-44.0); LYMPHOCYTE # 1.3 TH/MM3 (1.0-4.8); MEAN CELL VOLUME 93.3 FL (80.0-100.0); MEAN CORPUSCULAR HEMOGLOBIN 30.8 PG (27.0-34.0); NEUT % 70.6 % (16.0-70.0); PLATELET COUNT 245 TH/MM3 (150-450); RED BLOOD COUNT 4.05 MIL/MM3 (4.50-5.90); RED CELL DISTRIBUTION WIDTH 15.1 % (11.6-17.2); WHITE BLOOD COUNT 7.6 TH/MM3 (4.0-11.0)
[2016-06-05 10:14] LABS: BICARBONATE 27.4 MEQ/L (21.0-32.0)
--- NOTE | 2016-06-05 11:36 | HHI.NSPN ---
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 The patient underwent placement of right frontal external ventricular drain for acute hydrocephalus and was transferred to [facility] for further treatment of the AVM by embolization followed by suboccipital craniotomy for hematoma evacuation, and AVM resection at [facility] . Postoperatively, he was slow to wake up, his EVD was Clamped and removed at [facility] and his mental status was improving. He had UTI and agitation. He was started on Rocephin and Seroquel. The patient was being transferred back to ISU due to confusion and CSF leak. 06/04: s/p placement of ventriculostomy drain. no further leaking noted from posterior fossa wound, there has been scab formation also. 06/05: no wound leak seen (Anusha Hastings) Labs, Micro, & Vital Signs Results Date Time Temp Pulse Resp B/P Pulse Ox O2 Delivery O2 Flow Rate FiO2 06/05/16 08:00 98.2 77 11 108/71 96 06/05/16 07:50 21 06/05/16 07:00 97 Room Air 06/05/16 04:00 75 11 119/67 94 06/05/16 00:00 98.0 67 12 96/57 100 06/04/16 20:00 98.0 81 13 109/55 94 06/04/16 19:45 94 Room Air 06/04/16 19:40 94 06/04/16 16:00 97.9 85 15 97/60 98 06/04/16 13:30 12 06/04/16 12:00 98.2 85 15 116/77 98 06/05/16 07:00 Intake Total 2793 ml Output Total 1053 ml Balance 1740 ml Constitutional Vital Signs Date Time Temp Pulse Resp B/P Pulse Ox O2 Delivery O2 Flow Rate FiO2 06/05/16 08:00 98.2 77 11 108/71 96 06/05/16 07:50 21 06/05/16 07:00 97 Room Air 06/05/16 04:00 75 11 119/67 94 06/05/16 00:00 98.0 67 12 96/57 100 06/04/16 20:00 98.0 81 13 109/55 94 06/04/16 19:45 94 Room Air 06/04/16 19:40 94 06/04/16 16:00 97.9 85 15 97/60 98 06/04/16 13:30 12 06/04/16 12:00 98.2 85 15 116/77 98 06/05/16 07:00 Intake Total 2793 ml Output Total 1053 ml Balance 1740 ml (Anusha Hastings) Review of Systems/Exam Exam He is alert, confused, oriented to self. Confused but follows few simple commands. Suboccipital craniectomy incision with a small dehiscence with scab formation, dry. Ventriculostomy drain in place, intact, site is clean. Cranial nerve examination: pupils 2 mm round, and reactive to light. Facial motor function appears normal and symmetrical. Neck is soft and supple. Motor: moves all four extremities well Cerebellar examination is limited due to the patient condition, but no obvious deficits are noted. (Anusha Hastings) Medications Current Medications Current Medications Medications (Trade) Dose Ordered Sig/Paula Route PRN Reason Start Time Stop Time Status Last Admin Dose Admin Naloxone HCl (Narcan Inj) 0.4 mg UNSCH PRN IV SEE LABEL COMMENTS 05/29/16 15:00 Acetaminophen/ Butalbital/ Caffeine (Fioricet 325-50-40) 1 tab Q6H PRN PO PAIN GREATER THAN 5 or headach 05/29/16 15:00 06/04/16 20:46 Heparin Sodium (Porcine) (Heparin Inj) 5,000 units Q12HR SQ 05/29/16 21:00 06/05/16 08:33 Levetriacetam (Keppra) 500 mg Q12HR PO 05/29/16 21:00 06/05/16 08:33 Morphine Sulfate (Morphine Inj) 2 mg Q3H PRN IV PUSH BREAKTHROUGH PAIN 06/02/16 10:30 Quetiapine Fumarate (SEROquel) 50 mg BID PO 06/02/16 21:00 06/05/16 08:33 Diphenhydramine HCl (Benadryl 2% Cream) 1 applic TID PRN TOPICAL ITCHING 06/02/16 11:15 IV Flush (NS Flush) 2 ml UNSCH PRN IV FLUSH FLUSH AFTER USING IV ACCESS 06/03/16 09:45 IV Flush (NS Flush) 2 ml BID IV FLUSH 06/03/16 21:00 06/05/16 08:33 Acetaminophen (Tylenol) 650 mg Q6H PRN PO FEVER >100F 06/03/16 09:45 Ondansetron HCl (Zofran Inj) 4 mg Q6H PRN IV NAUSEA OR VOMITING 06/03/16 09:45 Docusate Sodium (Colace) 100 mg BID PO 06/03/16 21:00 06/03/16 20:30 Sennosides (Senokot) 17.2 mg Q12H PRN PO CONSTIPATION 06/03/16 09:45 Miscellaneous Information 1 Q361D XX 06/03/16 09:45 Chlorhexidine Gluconate (Chlorhexidine 2% Cloth) 3 pack Taper DAILY@04 TOP 06/04/16 04:00 05/31/17 03:59 06/05/16 03:20 Chlorhexidine Gluconate 3 pack 3 pack UNSCH PRN TOP HYGIENIC CARE 06/03/16 09:45 Thiamine HCl/ Sodium Chloride (Thiamine Inj/NS Inj) 101 ml @ 101 mls/hr DAILY IV 06/04/16 09:00 06/05/16 08:33 Polyethylene Glycol 17 gm 17 gm DAILY PO 06/04/16 09:00 Sodium Chloride (NS 1000 ml Inj) 1,000 ml @ 100 mls/hr Q10H IV 06/03/16 21:16 06/05/16 02:31 Chlorhexidine Gluconate (Hibiclens 4% Top Soln) 1 applic HS TOP 06/04/16 21:00 06/05/16 21:01 Water (Free Water) VOLUME: 100 ML Q6HR G-TUBE 06/04/16 12:00 06/05/16 05:46 Famotidine (Pepcid) 20 mg BID NG 06/04/16 09:00 06/05/16 08:32 Metoprolol Tartrate (Lopressor) 12.5 mg Q12HR PO 06/05/16 21:00 (Anusha Hastings) Medical Decision Making MDM Remarks 55 y/o male s/p posterior fossa craniectomy for evacuation of cerebellar bleed due to AVM with embolization at [facility] s/p ventriculostomy placement for CSF leak (Anusha Hastings) Plan Plan Remarks cont EVD through the weekend, cont monitor wound for further CSF leak ok for PT, OOB to chair dw patient and nursing (Anusha Hastings) Attending Statement The exam, history, and the medical decision-making described in the above note were completed with the assistance of the mid-level provider. I reviewed and agree with the findings presented. I attest that I had a [id number] encounter with the patient on the same day, and personally performed and documented my assessment and findings in the medical record. (John Flowers MD) Anusha Hastings Jun 05, 2016 11:36 John Flowers MD Jun 06, 2016 08:53
[2016-06-05] MEDS: CHLORHEXIDINE GLUCONATE 4% SOLN 120 ML BTL TOP SCH (20:36)
[2016-06-05] MEDS: METOPROLOL TARTRATE 25 MG TAB PO SCH (20:36)
[2016-06-05] MEDS: ACETAMIN 325 MG/BUTALBITAL 50 MG/CAFFEINE 40 MG TAB PO PRN (21:22)
[2016-06-06] VITALS (7 sets, daily range): BP systolic 95–133; BP diastolic 65–75; PULSE 62–78; RESP 11–17; TEMP 98–99.4; O2SAT 96–100
[2016-06-06] MEDS: CHLORHEXIDINE GLUCONATE 2 % 1 PACK (2 CLOTHS) TOP SCH (03:27)
[2016-06-06] MEDS: ACETAMIN 325 MG/BUTALBITAL 50 MG/CAFFEINE 40 MG TAB PO PRN ×2 (03:46→20:34)
[2016-06-06 05:28] LABS: HEMATOCRIT 34.5 % (39.0-51.0); MEAN CELL VOLUME 92.4 FL (80.0-100.0); MEAN CORPUSCULAR HEMOGLOBIN 30.3 PG (27.0-34.0); MEAN CORPUSCULAR HGB CONC 32.8 % (32.0-36.0); PLATELET COUNT 228 TH/MM3 (150-450); RED BLOOD COUNT 3.73 MIL/MM3 (4.50-5.90); RED CELL DISTRIBUTION WIDTH 14.4 % (11.6-17.2); REVIEW FLAG FINAL; WHITE BLOOD COUNT 8.2 TH/MM3 (4.0-11.0)
[2016-06-06 05:50] LABS: BICARBONATE 29.3 MEQ/L (21.0-32.0); POTASSIUM 3.9 MEQ/L (3.5-5.1)
[2016-06-06] MEDS: FREE WATER G-TUBE SCH ×3 (05:51→23:58)
--- NOTE | 2016-06-06 08:00 | HHI.CCPN ---
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 The patient underwent placement of right frontal external ventricular drain for acute hydrocephalus and was transferred to [facility] for further treatment of the AVM by embolization followed by suboccipital craniotomy for hematoma evacuation and AVM resection. Postoperatively, he was slow to wake up, his EVD was Clamped and removed and his mental status was improving. Other complications include the UTI and agitation. He was started on Rocephin and Seroquel. The patient is being transferred back to [facility] due to confusion and questionable CSF leak. 06/03: Noted AVM embolization followed by suboccipital craniotomy for hematoma evacuation and AVM resection. Postoperatively, he was slow to wake up and a head CT showed herniation.. Noted CT last night revealed status post partial occipital craniotomy changes with Coils. Currently afebrile. Arousable and will follow commands but won't open eyes. Noted to have leaking from the occipital region plan to go back to or for suturing with neurosurgery. 06/04: Tmax 99. 3 problems overnight. Received 1 dose of Cafergot overnight for headache. Noted placement of a right ventriculostomy secondary to CSF leak yesterday. Patient is arousable. Tolerating tube feeding currently. 06/05: Afebrile. Mentation somewhat improved. Positive BM 4. Tolerating tube feeding. Will follow commands. Answers questions appropriately. Subjective 06/06: Afebrile. Sitting up in chair yesterday no acute distress. Positive BM 8 yesterday. Tolerating tube feeding. Follows commands. Still confused but answers questions appropriately. Objective Vital Signs Date Time Temp Pulse Resp B/P Pulse Ox O2 Delivery O2 Flow Rate FiO2 06/06/16 07:00 99 Room Air 06/06/16 04:46 12 06/06/16 04:00 98.0 75 114/69 06/05/16 19:40 21 Intake and Output 06/05/16 06/05/16 06/06/16 08:00 16:00 00:00 Intake Total 650 ml 1211 ml 758 ml Output Total 370 ml 70 ml Balance 280 ml 1211 ml 688 ml Result Diagram: 06/06/16 0327 06/06/16 0327 Other Results Microbiology Date/Time Procedure Status Source Growth 06/03/16 14:15 Gram Stain - Final Complete Cerebral Spinal Fluid Shunt Fluid 06/03/16 14:15 CSF Culture - Final Complete Cerebral Spinal Fluid Shunt Fluid NO GROWTH IN 72 HOURS Imaging Last Impressions Head CT 06/02/16 0000 Signed Impressions: Service Date/Time: Thursday, June 02, 2016 20:00 - CONCLUSION: Postoperative partial occipital craniectomy for treatment of arteriovenous malformation with vascular coils present in the operative bed. There is encephalomalacia in the posterior fossa involving the posterior cerebellum more so on the left side. No new intracranial hemorrhage. Resolution of previous intraventricular hemorrhage. Removal of previous ventriculostomy. Kirk Cortes MD Objective Remarks GENERAL: 55-year-old male, critically ill currently resting in bed in no acute distress SKIN: Warm and dry. No rash HEAD: Open Occipital region with drainage/CSF leak Post occipital craniotomy. Right ventriculostomy appears clean dry and intact with Biopatch EYES: No scleral icterus. No injection or drainage. NECK: Supple, trachea midline. No JVD or lymphadenopathy. CARDIOVASCULAR: Bradycardic, RR. S1, S2. No S4. Without murmurs, gallops, or rubs. RESPIRATORY: Breath sounds equal bilaterally. No accessory muscle use. GASTROINTESTINAL: Abdomen soft, non-tender, nondistended. MUSCULOSKELETAL: No cyanosis, or edema. Neuro: Moves all 4 extremity spontaneously. He is opening his eyes to command , and will answers 1-2 word responses to questions. A/P Problem List: (1) AVM (arteriovenous malformation) brain ICD Code: Q28.2 Status: Acute (2) Encephalopathy, traumatic ICD Code: F07.81 Status: Acute (3) UTI (urinary tract infection) ICD Code: N39.0 Status: Acute (4) Agitation ICD Code: R45.1 Status: Acute (5) Cerebellar hemorrhage ICD Code: I61.4 Status: Acute Assessment and Plan Neurologic/Psych: Intracranial hemorrhage Pial AVM Subarachnoid hemorrhage Mild Encephalopathy CSF leak?? - status post AVM embolization followed by suboccipital craniotomy for hematoma evacuation and AVM resection at [facility]. Postoperatively, he was slow to wake up and a head CT showed herniation. - neuro checks per unit protocol - Neurosurgery following, Dr. Flowers. Status post right ventriculostomy 06/03 - -5 cm H2O at 138 cc clear/yellowish Maintain ventriculostomy over weekend. - Keppra 500 mg twice a day for seizure prophylaxis - Seroquel for agitation control currently on hold with altered mental status - CT of head 06/02 revealed partial occipital craniotomy with coiling. - EEG 06/03 read as normal. No seizure activity. - Currently on Seroquel 50 mg twice a day Respiratory: - NC to maintain saturations greater than equal to 92% - Incentive spirometry while awake Cardiovascular: Hypertension - Metoprol currently 12.5 milligrams by mouth twice a day with holding parameters for hypotension - continue Telemetry Renal: - Strict I/Os - attempt euvolemia FEN/GI: Acute protein calorie malnutritionmild Hypernatremia - Currently on Jevity 1.5 goal 50 cc an hour - Continue free water 100 cc every 6 - ICU electrolyte protocol - Pepcid for GI prophylaxis -Colace/MiraLAX for bowel regimen to be held with 8 BM overnight Heme Normocytic anemia - Does not meet transfusion triggers at this time. - Daily CBC ID - No infectious etiology suspected this time Noted on CSF WBC 169 - 82% neutrophils and glucose 69/protein 77 high Pertinent cultures 06/03 - CSF - no organisms Endocrine: - SSI if needed Prophylaxis: GI Prophylaxis Pepcid 20 mg twice a day: DVT Prophylaxis - SCDs - Heparin subQ Critical Care: The total critical care time was 35 minutes. Time to perform other separately billable procedures was not included in the critical care time. Problem Qualifiers (1) UTI (urinary tract infection): (2) Cerebellar hemorrhage: Qualified Code: I61.4 - Nontraumatic intracerebral hemorrhage of cerebellum, unspecified laterality Darrick Dasilva MD Jun 06, 2016 08:00
[2016-06-06] MEDS: THIAMINE INJ 100 MG in SODIUM CHLORIDE 0.9% INJ 100 ML IV SCH (08:40)
[2016-06-06] MEDS: QUEtiapine FUMARATE 25 MG TAB PO SCH ×2 (08:43→20:34)
[2016-06-06] MEDS: HEPARIN SODIUM - SQ 10,000 UNITS/ML VIAL SQ SCH ×2 (08:43→20:35)
[2016-06-06] MEDS: METOPROLOL TARTRATE 25 MG TAB PO SCH ×2 (08:44→20:34)
[2016-06-06] MEDS: FAMOTIDINE 20 MG TAB NG SCH ×2 (08:45→20:34)
[2016-06-06] MEDS: levETIRAcetam 500 MG TAB PO SCH ×2 (08:45→20:34)
--- NOTE | 2016-06-06 09:42 | HHI.NSPN ---
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 The patient underwent placement of right frontal external ventricular drain for acute hydrocephalus and was transferred to [facility] for further treatment of the AVM by embolization followed by suboccipital craniotomy for hematoma evacuation, and AVM resection at [facility] . Postoperatively, he was slow to wake up, his EVD was Clamped and removed at [facility] and his mental status was improving. He had UTI and agitation. He was started on Rocephin and Seroquel. The patient was being transferred back to [facility] due to confusion and CSF leak. 06/04: s/p placement of ventriculostomy drain. no further leaking noted from posterior fossa wound, there has been scab formation also. 06/05: no wound leak seen 06/06: appears more awake today, wound dry, no evidence of CSF leaking overnight (Anusha Hastings) Labs, Micro, & Vital Signs Results Date Time Temp Pulse Resp B/P Pulse Ox O2 Delivery O2 Flow Rate FiO2 06/06/16 07:00 99 Room Air 06/06/16 04:46 12 06/06/16 04:00 98.0 75 13 114/69 100 06/06/16 00:00 98.2 62 12 95/65 100 06/05/16 20:00 83 06/05/16 20:00 98.9 84 15 123/74 100 06/05/16 19:40 100 21 06/05/16 19:00 94 Room Air 06/05/16 16:00 98.6 84 18 122/70 100 06/05/16 12:00 97.9 83 12 91/51 100 06/06/16 07:00 Intake Total 3211 ml Output Total 138 ml Balance 3073 ml Constitutional Vital Signs Date Time Temp Pulse Resp B/P Pulse Ox O2 Delivery O2 Flow Rate FiO2 06/06/16 07:00 99 Room Air 06/06/16 04:46 12 06/06/16 04:00 98.0 75 13 114/69 100 06/06/16 00:00 98.2 62 12 95/65 100 06/05/16 20:00 83 06/05/16 20:00 98.9 84 15 123/74 100 06/05/16 19:40 100 21 06/05/16 19:00 94 Room Air 06/05/16 16:00 98.6 84 18 122/70 100 06/05/16 12:00 97.9 83 12 91/51 100 06/06/16 07:00 Intake Total 3211 ml Output Total 138 ml Balance 3073 ml (Anusha Hastings) Review of Systems/Exam Exam He is alert, oriented to self only. Follows few simple commands. Suboccipital craniectomy incision with a small dehiscence now with scab formation, and dry, no leaking noted with Valsalva maneuver. Ventriculostomy drain in place and draining well, intact, site is clean. Cranial nerve examination: pupils 2 mm round, and reactive to light. Facial motor function appears normal and symmetrical. Neck is soft and supple. Motor: moves all four extremities well Sensory: reports intact to touch x 4 (Anusha Hastings) Medications Current Medications Current Medications Medications (Trade) Dose Ordered Sig/Paula Route PRN Reason Start Time Stop Time Status Last Admin Dose Admin Naloxone HCl (Narcan Inj) 0.4 mg UNSCH PRN IV SEE LABEL COMMENTS 05/29/16 15:00 Acetaminophen/ Butalbital/ Caffeine (Fioricet 325-50-40) 1 tab Q6H PRN PO PAIN GREATER THAN 5 or headach 05/29/16 15:00 06/06/16 03:46 Heparin Sodium (Porcine) (Heparin Inj) 5,000 units Q12HR SQ 05/29/16 21:00 06/06/16 08:43 Levetriacetam (Keppra) 500 mg Q12HR PO 05/29/16 21:00 06/06/16 08:45 Morphine Sulfate (Morphine Inj) 2 mg Q3H PRN IV PUSH BREAKTHROUGH PAIN 06/02/16 10:30 Diphenhydramine HCl (Benadryl 2% Cream) 1 applic TID PRN TOPICAL ITCHING 06/02/16 11:15 IV Flush (NS Flush) 2 ml UNSCH PRN IV FLUSH FLUSH AFTER USING IV ACCESS 06/03/16 09:45 IV Flush (NS Flush) 2 ml BID IV FLUSH 06/03/16 21:00 06/05/16 20:36 Acetaminophen (Tylenol) 650 mg Q6H PRN PO FEVER >100F 06/03/16 09:45 Ondansetron HCl (Zofran Inj) 4 mg Q6H PRN IV NAUSEA OR VOMITING 06/03/16 09:45 Docusate Sodium (Colace) 100 mg BID PO 06/03/16 21:00 Hold 06/05/16 20:35 Sennosides (Senokot) 17.2 mg Q12H PRN PO CONSTIPATION 06/03/16 09:45 Hold Miscellaneous Information 1 [id number] XX 06/03/16 09:45 Chlorhexidine Gluconate (Chlorhexidine 2% Cloth) 3 pack Taper DAILY@04 TOP 06/04/16 04:00 05/31/17 03:59 06/06/16 03:27 Chlorhexidine Gluconate 3 pack 3 pack UNSCH PRN TOP HYGIENIC CARE 06/03/16 09:45 Thiamine HCl/ Sodium Chloride (Thiamine Inj/NS Inj) 101 ml @ 101 mls/hr DAILY IV 06/04/16 09:00 06/06/16 08:40 Polyethylene Glycol 17 gm 17 gm DAILY PO 06/04/16 09:00 Hold Sodium Chloride (NS 1000 ml Inj) 1,000 ml @ 100 mls/hr Q10H IV 06/03/16 21:16 Hold 06/05/16 22:23 Water (Free Water) VOLUME: 100 ML Q6HR G-TUBE 06/04/16 12:00 06/06/16 05:51 Famotidine (Pepcid) 20 mg BID NG 06/04/16 09:00 06/06/16 08:45 Metoprolol Tartrate (Lopressor) 12.5 mg Q12HR PO 06/05/16 21:00 06/06/16 08:44 Quetiapine Fumarate (SEROquel) 25 mg BID PO 06/06/16 09:00 06/06/16 08:43 (Anusha Hastings) Medical Decision Making MDM Remarks 55 y/o male s/p posterior fossa craniectomy for evacuation of cerebellar bleed due to AVM with embolization at [facility] s/p ventriculostomy placement for CSF leak (Anusha Hastings) Plan Plan Remarks cont EVD through the weekend, cont monitor wound for further CSF leak cont PT, OOB to chair (Anusha Hastings) Attending Statement The exam, history, and the medical decision-making described in the above note were completed with the assistance of the mid-level provider. I reviewed and agree with the findings presented. I attest that I had a [id number] encounter with the patient on the same day, and personally performed and documented my assessment and findings in the medical record. (John Flowers MD) Anusha Hastings Jun 06, 2016 09:42 John Folwers MD Jun 06, 2016 21:08
[2016-06-06 13:18] LABS: C. DIFF EPI 027 PRESUMPTIVE NEGATIVE (NEGATIVE); C. DIFF TOXIN PCR NEGATIVE (NEGATIVE)
[2016-06-06] MEDS: LOPERAMIDE HCL SOLN 2 MG/10 ML UDC TUBE PRN ×2 (19:27→22:27)
[2016-06-06] MEDS: SODIUM CHLORIDE 0.9% FLUSH 5 ML FLUSH IV FLUSH SCH (20:35)
[2016-06-07] VITALS (8 sets, daily range): BP systolic 108–127; BP diastolic 65–86; PULSE 67–91; RESP 11–30; TEMP 98.1–99; O2SAT 96–100
[2016-06-07] MEDS: LOPERAMIDE HCL SOLN 2 MG/10 ML UDC TUBE PRN ×2 (02:54→21:24)
[2016-06-07] MEDS: CHLORHEXIDINE GLUCONATE 2 % 1 PACK (2 CLOTHS) TOP SCH (03:14)
[2016-06-07] MEDS: FREE WATER G-TUBE SCH ×4 (06:21→23:08)
[2016-06-07] MEDS: QUEtiapine FUMARATE 25 MG TAB PO SCH ×2 (08:50→20:28)
[2016-06-07] MEDS: levETIRAcetam 500 MG TAB PO SCH ×2 (08:50→20:28)
[2016-06-07] MEDS: SODIUM CHLORIDE 0.9% FLUSH 5 ML FLUSH IV FLUSH SCH ×2 (08:50→20:28)
[2016-06-07] MEDS: FAMOTIDINE 20 MG TAB NG SCH ×2 (08:50→20:28)
[2016-06-07] MEDS: THIAMINE INJ 100 MG in SODIUM CHLORIDE 0.9% INJ 100 ML IV SCH (08:50)
[2016-06-07] MEDS: METOPROLOL TARTRATE 25 MG TAB PO SCH ×2 (08:51→20:28)
[2016-06-07] MEDS: HEPARIN SODIUM - SQ 10,000 UNITS/ML VIAL SQ SCH ×2 (08:51→20:28)
--- NOTE | 2016-06-07 10:40 | HHI.CCPN ---
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 The patient underwent placement of right frontal external ventricular drain for acute hydrocephalus and was transferred to [facility] for further treatment of the AVM by embolization followed by suboccipital craniotomy for hematoma evacuation and AVM resection. Postoperatively, he was slow to wake up, his EVD was Clamped and removed and his mental status was improving. Other complications include the UTI and agitation. He was started on Rocephin and Seroquel. The patient is being transferred back to [facility] due to confusion and questionable CSF leak. 06/03: Noted AVM embolization followed by suboccipital craniotomy for hematoma evacuation and AVM resection. Postoperatively, he was slow to wake up and a head CT showed herniation.. Noted CT last night revealed status post partial occipital craniotomy changes with Coils. Currently afebrile. Arousable and will follow commands but won't open eyes. Noted to have leaking from the occipital region plan to go back to or for suturing with neurosurgery. 06/04: Tmax 99. 3 problems overnight. Received 1 dose of Cafergot overnight for headache. Noted placement of a right ventriculostomy secondary to CSF leak yesterday. Patient is arousable. Tolerating tube feeding currently. 06/05: Afebrile. Mentation somewhat improved. Positive BM 4. Tolerating tube feeding. Will follow commands. Answers questions appropriately. 06/06: Afebrile. Sitting up in chair yesterday no acute distress. Positive BM 8 yesterday. Tolerating tube feeding. Follows commands. Still confused but answers questions appropriately. Subjective 06/07: Tmax 99. Currently on 2 L nasal cannula. Awake and alert to person only. No more CSF leak overnight. One to 2 word answers per his norm. 8 bowel movements negative C. difficile. Objective Vital Signs Date Time Temp Pulse Resp B/P Pulse Ox O2 Delivery O2 Flow Rate FiO2 06/07/16 10:10 100 Nasal Cannula 2.00 06/07/16 04:00 99.0 77 16 127/86 06/06/16 09:20 21 Intake and Output 06/06/16 06/06/16 06/07/16 08:00 16:00 00:00 Intake Total 1242 ml 777 ml 485 ml Output Total 68 ml 542 ml 714 ml Balance 1174 ml 235 ml -229 ml Result Diagram: 06/06/16 0327 06/06/16 0327 Other Results Microbiology Date/Time Procedure Status Source Growth 06/03/16 14:15 Gram Stain - Final Complete Cerebral Spinal Fluid Shunt Fluid 06/03/16 14:15 CSF Culture - Final Complete Cerebral Spinal Fluid Shunt Fluid NO GROWTH IN 72 HOURS Imaging Last Impressions Head CT 06/02/16 0000 Signed Impressions: Service Date/Time: Thursday, June 02, 2016 20:00 - CONCLUSION: Postoperative partial occipital craniectomy for treatment of arteriovenous malformation with vascular coils present in the operative bed. There is encephalomalacia in the posterior fossa involving the posterior cerebellum more so on the left side. No new intracranial hemorrhage. Resolution of previous intraventricular hemorrhage. Removal of previous ventriculostomy. Kirk Cortes MD Objective Remarks GENERAL: 55-year-old male, critically ill currently resting in bed in no acute distress SKIN: Warm and dry. No rash HEAD: Open Occipital region with drainage/CSF leak Post occipital craniotomy. Right ventriculostomy appears clean dry and intact with Biopatch EYES: No scleral icterus. No injection or drainage. NECK: Supple, trachea midline. No JVD or lymphadenopathy. CARDIOVASCULAR: Bradycardic, RR. S1, S2. No S4. Without murmurs, gallops, or rubs. RESPIRATORY: Breath sounds equal bilaterally. No accessory muscle use. GASTROINTESTINAL: Abdomen soft, non-tender, nondistended. MUSCULOSKELETAL: No cyanosis, or edema. Neuro: Moves all 4 extremity spontaneously. He is opening his eyes to command , and will answers 1-2 word responses to questions. A/P Problem List: (1) AVM (arteriovenous malformation) brain ICD Code: Q28.2 Status: Acute (2) Encephalopathy, traumatic ICD Code: F07.81 Status: Acute (3) UTI (urinary tract infection) ICD Code: N39.0 Status: Acute (4) Agitation ICD Code: R45.1 Status: Acute (5) Cerebellar hemorrhage ICD Code: I61.4 Status: Acute Assessment and Plan Neurologic/Psych: Intracranial hemorrhage Pial AVM Subarachnoid hemorrhage Mild Encephalopathy CSF leak?? - status post AVM embolization followed by suboccipital craniotomy for hematoma evacuation and AVM resection at [facility]. Postoperatively, he was slow to wake up and a head CT showed herniation. - neuro checks per unit protocol - Neurosurgery following, Dr. Flowers. Status post right ventriculostomy 06/03 - -5 cm H2O at 162 cc clear/yellowish Maintain ventriculostomy over weekend. - Keppra 500 mg twice a day for seizure prophylaxis - CT of head 06/02 revealed partial occipital craniotomy with coiling. - EEG 06/03 read as normal. No seizure activity. - Currently on Seroquel 25 mg twice a day - weaning 50 mg twice a day Respiratory: - NC to maintain saturations greater than equal to 92% - Incentive spirometry while awake Cardiovascular: Hypertension - Metoprol currently 12.5 milligrams by mouth twice a day with holding parameters for hypotension - continue Telemetry Renal: - Strict I/Os - attempt euvolemia FEN/GI: Acute protein calorie malnutritionmild Hypernatremia Diarrhea - Currently on Jevity 1.5 goal 50 cc an hour - Continue free water 100 cc every 6 - ICU electrolyte protocol - Pepcid for GI prophylaxis - Colace/MiraLAX for bowel regimen held with diarrhea Heme Normocytic anemia - Does not meet transfusion triggers at this time. - Daily CBC ID - No infectious etiology suspected this time Noted on CSF WBC 169 - 82% neutrophils and glucose 69/protein 77 high Pertinent cultures 06/03 - CSF - no organisms Endocrine: - SSI if needed Prophylaxis: GI Prophylaxis Pepcid 20 mg twice a day: DVT Prophylaxis - SCDs - Heparin subQ Critical Care: The total care time was 35 minutes. Time to perform other separately billable procedures was not included in the critical care time. Problem Qualifiers (1) UTI (urinary tract infection): (2) Cerebellar hemorrhage: Qualified Code: I61.4 - Nontraumatic intracerebral hemorrhage of cerebellum, unspecified laterality Darrick Dasilva MD Jun 07, 2016 10:40
--- NOTE | 2016-06-07 11:28 | HHI.NSPN ---
History Chief Complaint: none Interval History 55 yr old s/p AVM resected from the posterior fossa after a bleed, day 4 on EVD for a CSF leak. He is awake but lethargic, opens his eyes spontaneously. The posterior fossa wound has remained dry. Review of Systems General: Negative for: fever, chills, insomnia Respiratory: Negative for: shortness of breath, cough, sputum Cardiovascular: Negative for: chest pain, palpitations, orthopnea Gastrointestinal: Negative for: nausea, vomitting, diarrhea, constipation Genitourinary: Negative for: urinary burning, urinary frequency, urinary urgency Exam Results Vital Signs Date Time Temp Pulse Resp B/P Pulse Ox O2 Delivery O2 Flow Rate FiO2 06/07/16 10:10 100 Nasal Cannula 2.00 06/07/16 08:00 98.2 74 12 115/79 06/06/16 09:20 21 Intake and Output 06/06/16 06/06/16 06/06/16 07:59 15:59 23:59 Intake Total 1242 ml 777 ml 485 ml Output Total 68 ml 542 ml 714 ml Balance 1174 ml 235 ml -229 ml Physical Examination He is alert, oriented to self only. Follows few simple commands. Suboccipital craniectomy incision with a small dehiscence now with scab formation, and dry, no leaking noted with Valsalva maneuver. Ventriculostomy drain in place and draining well, intact, site is clean. Cranial nerve examination: pupils 2 mm round, and reactive to light. Facial motor function appears normal and symmetrical. Neck is soft and supple. Motor: moves all four extremities well, follows some simple commands Sensory: reports intact to touch x 4 Lab, Micro, Other Results Laboratory Tests Test 06/06/16 11:45 Stool C. difficile Toxin (PCR) NEGATIVE Stl C. difficile Toxin PRESUMPTIVE Epiderm 027 NEGATIVE Medical Decision Making Impression and Plan Day 4 on EVD, CSF is xanthochromic, The drain put out 165 cc in 24 hrs. there is no plan for challenge of the drain until next week. The wound has remained dry at this time. Total Minutes: 10 Moe Boles Jun 07, 2016 11:28
[2016-06-07] MEDS: ACETAMIN 325 MG/BUTALBITAL 50 MG/CAFFEINE 40 MG TAB PO PRN (21:25)
[2016-06-08] VITALS (8 sets, daily range): BP systolic 90–127; BP diastolic 66–85; PULSE 70–104; RESP 13–16; TEMP 98.8–102.2; O2SAT 97–100
[2016-06-08] MEDS: MORPHINE SULFATE 4 MG/ML INJ IV PUSH PRN (01:03)
[2016-06-08 04:03] LABS: BASOPHIL # 0.1 TH/MM3 (0-0.2); BASOPHIL % 0.7 % (0.0-2.0); EOSINOPHIL # 0.2 TH/MM3 (0-0.4); EOSINOPHIL % 2.4 % (0.0-4.0); HEMATOCRIT 37.5 % (39.0-51.0); HEMO FLAGS DIFF FINAL; LYMPHOCYTE # 1.2 TH/MM3 (1.0-4.8); MEAN CELL VOLUME 90.6 FL (80.0-100.0); MEAN CORPUSCULAR HEMOGLOBIN 30.1 PG (27.0-34.0); MEAN CORPUSCULAR HGB CONC 33.3 % (32.0-36.0); MONO % 6.5 % (0.0-8.0); NEUT % 78.4 % (16.0-70.0); PLATELET COUNT 276 TH/MM3 (150-450); RED BLOOD COUNT 4.13 MIL/MM3 (4.50-5.90); RED CELL DISTRIBUTION WIDTH 14.5 % (11.6-17.2); WHITE BLOOD COUNT 10.3 TH/MM3 (4.0-11.0)
[2016-06-08 04:07] LABS: ALT (GPT) 59 U/L (12-78); ANION GAP 9 MEQ/L (5-15); AST (GOT) 16 U/L (15-37); BICARBONATE 29.5 MEQ/L (21.0-32.0); BLOOD UREA NITROGEN 9 MG/DL (7-18); CHLORIDE 103 MEQ/L (98-107); GLOMERULAR FILTRATION RATE 206 ML/MIN (>89); MAGNESIUM 2.1 MG/DL (1.5-2.5); POTASSIUM 4.4 MEQ/L (3.5-5.1); SODIUM (NA) 141 MEQ/L (136-145)
[2016-06-08 04:09] LABS: ALKALINE PHOSPHATASE 101 U/L (45-117); TOTAL BILIRUBIN ADULT 0.2 MG/DL (0.2-1.0)
[2016-06-08] MEDS: CHLORHEXIDINE GLUCONATE 2 % 1 PACK (2 CLOTHS) TOP SCH (04:33)
[2016-06-08] MEDS: FREE WATER G-TUBE SCH ×3 (05:58→17:17)
[2016-06-08] MEDS: FAMOTIDINE 20 MG TAB NG SCH ×2 (08:28→19:47)
[2016-06-08] MEDS: QUEtiapine FUMARATE 25 MG TAB PO SCH ×2 (08:28→19:47)
[2016-06-08] MEDS: levETIRAcetam 500 MG TAB PO SCH ×2 (08:28→19:47)
[2016-06-08] MEDS: THIAMINE INJ 100 MG in SODIUM CHLORIDE 0.9% INJ 100 ML IV SCH (08:29)
[2016-06-08] MEDS: HEPARIN SODIUM - SQ 10,000 UNITS/ML VIAL SQ SCH ×2 (08:29→19:48)
[2016-06-08] MEDS: SODIUM CHLORIDE 0.9% FLUSH 5 ML FLUSH IV FLUSH SCH ×2 (08:29→19:47)
[2016-06-08] MEDS: METOPROLOL TARTRATE 25 MG TAB PO SCH ×2 (08:48→19:47)
--- NOTE | 2016-06-08 10:26 | HHI.NSPN ---
History Chief Complaint: none Interval History 55 yr old s/p AVM resected from the posterior fossa after a bleed, day 4 on EVD for a CSF leak. He is awake but lethargic, opens his eyes spontaneously. The posterior fossa wound has remained dry. 06/08/16 He is arousable but lethargic. He opens his eyes to voice, pupils are reactive, he moves purposefully. He had complaint of severe neck pain. EVD drained clear 100 cc CSF in 24 hrs Review of Systems General: Negative for: fever, chills, insomnia Respiratory: Negative for: shortness of breath, cough, sputum Cardiovascular: Negative for: chest pain, palpitations, orthopnea Exam Results Vital Signs Date Time Temp Pulse Resp B/P Pulse Ox O2 Delivery O2 Flow Rate FiO2 06/08/16 09:08 97 21 06/08/16 04:00 99.0 94 13 127/81 06/07/16 19:00 Room Air 06/07/16 10:10 2.00 Intake and Output 06/07/16 06/07/16 06/08/16 08:00 16:00 00:00 Intake Total 413 ml 652 ml 562 ml Output Total 39.0 ml 24 ml 60 ml Balance 374.0 ml 628 ml 502 ml Physical Examination He is alert, oriented to self only. Follows few simple commands. Suboccipital craniectomy incision with a small dehiscence now with scab formation, and dry, no leaking noted with Valsalva maneuver. Ventriculostomy drain in place and draining well, intact, site is clean. Cranial nerve examination: pupils 2 mm round, and reactive to light. Facial motor function appears normal and symmetrical. Neck is tensed this am Motor: moves all four extremities well, follows some simple commands Sensory: reports intact to touch x 4 Lab, Micro, Other Results Laboratory Tests Test 06/08/16 02:40 White Blood Count 10.3 TH/MM3 Red Blood Count 4.13 MIL/MM3 Hemoglobin 12.5 GM/DL Hematocrit 37.5 % Mean Corpuscular Volume 90.6 FL Mean Corpuscular Hemoglobin 30.1 PG Mean Corpuscular Hemoglobin 33.3 % Concent Red Cell Distribution Width 14.5 % Platelet Count 276 TH/MM3 Mean Platelet Volume 8.9 FL Neutrophils (%) (Auto) 78.4 % Lymphocytes (%) (Auto) 12.0 % Monocytes (%) (Auto) 6.5 % Eosinophils (%) (Auto) 2.4 % Basophils (%) (Auto) 0.7 % Neutrophils # (Auto) 8.0 TH/MM3 Lymphocytes # (Auto) 1.2 TH/MM3 Monocytes # (Auto) 0.7 TH/MM3 Eosinophils # (Auto) 0.2 TH/MM3 Basophils # (Auto) 0.1 TH/MM3 CBC Comment DIFF FINAL Differential Comment Sodium Level 141 MEQ/L Potassium Level 4.4 MEQ/L Chloride Level 103 MEQ/L Carbon Dioxide Level 29.5 MEQ/L Anion Gap 9 MEQ/L Blood Urea Nitrogen 9 MG/DL Creatinine 0.43 MG/DL Estimat Glomerular Filtration 206 ML/MIN Rate Random Glucose 99 MG/DL Calcium Level 9.1 MG/DL Phosphorus Level 4.3 MG/DL Magnesium Level 2.1 MG/DL Total Bilirubin 0.2 MG/DL Aspartate Amino Transf 16 U/L (AST/SGOT) Alanine Aminotransferase 59 U/L (ALT/SGPT) Alkaline Phosphatase 101 U/L Total Protein 7.0 GM/DL Albumin 2.7 GM/DL Medical Decision Making Impression and Plan Day 4 on EVD, CSF is less xanthochromic, The drain put out 100 cc in 24 hrs, it was decreased to 0cm of water. The wound has remained dry at this time. Total Minutes: 10 Moe Boles Jun 08, 2016 10:26
--- NOTE | 2016-06-08 10:33 | HHI.CCPN ---
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 The patient underwent placement of right frontal external ventricular drain for acute hydrocephalus and was transferred to [facility] for further treatment of the AVM by embolization followed by suboccipital craniotomy for hematoma evacuation and AVM resection. Postoperatively, he was slow to wake up, his EVD was Clamped and removed and his mental status was improving. Other complications include the UTI and agitation. He was started on Rocephin and Seroquel. The patient is being transferred back to [facility] due to confusion and questionable CSF leak. 06/03: Noted AVM embolization followed by suboccipital craniotomy for hematoma evacuation and AVM resection. Postoperatively, he was slow to wake up and a head CT showed herniation.. Noted CT last night revealed status post partial occipital craniotomy changes with Coils. Currently afebrile. Arousable and will follow commands but won't open eyes. Noted to have leaking from the occipital region plan to go back to or for suturing with neurosurgery. 06/04: Tmax 99. 3 problems overnight. Received 1 dose of Cafergot overnight for headache. Noted placement of a right ventriculostomy secondary to CSF leak yesterday. Patient is arousable. Tolerating tube feeding currently. 06/05: Afebrile. Mentation somewhat improved. Positive BM 4. Tolerating tube feeding. Will follow commands. Answers questions appropriately. 06/06: Afebrile. Sitting up in chair yesterday no acute distress. Positive BM 8 yesterday. Tolerating tube feeding. Follows commands. Still confused but answers questions appropriately. 06/07: Tmax 99. Currently on 2 L nasal cannula. Awake and alert to person only. No more CSF leak overnight. One to 2 word answers per his norm. 8 bowel movements negative C. difficile. Subjective 06/08: Tmax 99. Currently on room air. Awake and alert to person. No CSF leak. For bowel movements overnight. Noted that ventricular drain currently at 0 cm H2O Objective Vital Signs Date Time Temp Pulse Resp B/P Pulse Ox O2 Delivery O2 Flow Rate FiO2 06/08/16 09:08 97 21 06/08/16 04:00 99.0 94 13 127/81 06/07/16 19:00 Room Air 06/07/16 10:10 2.00 Intake and Output 06/07/16 06/07/16 06/08/16 08:00 16:00 00:00 Intake Total 413 ml 652 ml 562 ml Output Total 39.0 ml 24 ml 60 ml Balance 374.0 ml 628 ml 502 ml Result Diagram: 06/08/16 0240 06/08/16 0240 Imaging Last Impressions Head CT 06/02/16 0000 Signed Impressions: Service Date/Time: Thursday, June 02, 2016 20:00 - CONCLUSION: Postoperative partial occipital craniectomy for treatment of arteriovenous malformation with vascular coils present in the operative bed. There is encephalomalacia in the posterior fossa involving the posterior cerebellum more so on the left side. No new intracranial hemorrhage. Resolution of previous intraventricular hemorrhage. Removal of previous ventriculostomy. Kirk Cortes MD Objective Remarks GENERAL: 55-year-old male, critically ill currently resting in bed in no acute distress SKIN: Warm and dry. No rash HEAD: Open Occipital region with drainage/CSF leak Post occipital craniotomy. Right ventriculostomy appears clean dry and intact with Biopatch EYES: No scleral icterus. No injection or drainage. NECK: Supple, trachea midline. No JVD or lymphadenopathy. CARDIOVASCULAR: Bradycardic, RR. S1, S2. No S4. Without murmurs, gallops, or rubs. RESPIRATORY: Breath sounds equal bilaterally. No accessory muscle use. GASTROINTESTINAL: Abdomen soft, non-tender, nondistended. MUSCULOSKELETAL: No cyanosis, or edema. Neuro: Moves all 4 extremity spontaneously. He is opening his eyes to command , and will answers 1-2 word responses to questions. A/P Problem List: (1) AVM (arteriovenous malformation) brain ICD Code: Q28.2 Status: Acute (2) Encephalopathy, traumatic ICD Code: F07.81 Status: Acute (3) UTI (urinary tract infection) ICD Code: N39.0 Status: Acute (4) Agitation ICD Code: R45.1 Status: Acute (5) Cerebellar hemorrhage ICD Code: I61.4 Status: Acute Assessment and Plan Neurologic/Psych: Intracranial hemorrhage Pial AVM Subarachnoid hemorrhage Mild Encephalopathy CSF leak?? - status post AVM embolization followed by suboccipital craniotomy for hematoma evacuation and AVM resection at [facility]. Postoperatively, he was slow to wake up and a head CT showed herniation. - neuro checks per unit protocol - Neurosurgery following, Dr. Flowers. Status post right ventriculostomy 06/03 - -5 cm H2O at 100 cc clear/ yellowish. Now at 0 CABG 20 Maintain ventriculostomy over weekend. Reassess on Thursday - Keppra 500 mg twice a day for seizure prophylaxis - CT of head 06/02 revealed partial occipital craniotomy with coiling. - EEG 06/03 read as normal. No seizure activity. - Currently on Seroquel 25 mg twice a day - weaning 50 mg twice a day Respiratory: - NC to maintain saturations greater than equal to 92% - Incentive spirometry while awake Cardiovascular: Hypertension - Metoprol currently 12.5 milligrams by mouth twice a day with holding parameters for hypotension - continue Telemetry Renal: - Strict I/Os - attempt euvolemia FEN/GI: Acute protein calorie malnutritionmild Hypernatremia Diarrhea - Currently on Jevity 1.5 goal 50 cc an hour - Continue free water 100 cc every 6 - ICU electrolyte protocol - Pepcid for GI prophylaxis - Colace/MiraLAX for bowel regimen held with diarrhea - C. difficile negative Heme Normocytic anemia - Does not meet transfusion triggers at this time. - Daily CBC ID - No infectious etiology suspected this time Noted on CSF WBC 169 - 82% neutrophils and glucose 69/protein 77 high Pertinent cultures 06/03 - CSF - no organisms Endocrine: - SSI if needed Prophylaxis: GI Prophylaxis Pepcid 20 mg twice a day: DVT Prophylaxis - SCDs - Heparin subQ Critical Care: The total care time was 35 minutes. Time to perform other separately billable procedures was not included in the critical care time. Problem Qualifiers (1) UTI (urinary tract infection): (2) Cerebellar hemorrhage: Qualified Code: I61.4 - Nontraumatic intracerebral hemorrhage of cerebellum, unspecified laterality Darrick Dasilva MD Jun 08, 2016 10:32
--- NOTE | 2016-06-08 13:56 | RADRPT ---
EXAM DATE/TIME: 06/08/2016 13:28 [facility] COMPARISON: CT BRAIN W & W/O CONTRAST, June 02, 2016, 20:00. INDICATIONS : Change in mental status. RADIATION DOSE: 45.63 CTDIvol (mGy) MEDICAL HISTORY : Carcinoma, rectal. SURGICAL HISTORY : Craniotomy. ENCOUNTER: Subsequent ACUITY: 3 days PAIN SCALE: 4/10 LOCATION: cranial TECHNIQUE: Multiple contiguous axial images were obtained of the head. Using automated exposure control and adj ustment of the mA and/or kV according to patient size, radiation dose was kept as low as reasonably a chievable to obtain optimal diagnostic quality images. FINDINGS: Changes of an occipital craniectomy and posterior fossa hemorrhage evacuation again noted. In the las t 6 days, a fluid and gas collection has developed in the region of the craniectomy defect, series 2 image 3, and measures approximately 3.2 x 6.0 cm. Assuming no surgery or other instrumentation with g one since the CT on 02 June, this would be of concern for an abscess. Similar attenuation fluid i s seen in the Dandy-Walker configuration CSF space of the posterior fossa Patient is shunted. There is no ventricular dilatation or blood. No intracranial hemorrhage or hemato ma. No mass effect or midline shift. CONCLUSION: 1. Fluid and gas collection in the occipital craniectomy bed. Please see above. 2. No supratentorial change or acute process. Brian Hu MD on June 08, 2016 at 13:52 Board Certified Radiologist. This report was verified electronically.
[2016-06-08] MEDS: ACETAMINOPHEN 325 MG TAB PO PRN (19:47)
[2016-06-09] VITALS (8 sets, daily range): BP systolic 90–117; BP diastolic 58–82; PULSE 90–110; RESP 12–23; TEMP 98.2–100.5; O2SAT 98–100
[2016-06-09] MEDS: CHLORHEXIDINE GLUCONATE 2 % 1 PACK (2 CLOTHS) TOP SCH (04:00)
[2016-06-09] MEDS: FREE WATER G-TUBE SCH ×4 (04:39→18:00)
[2016-06-09 05:13] LABS: HEMATOCRIT 37.3 % (39.0-51.0); MEAN CELL VOLUME 90.8 FL (80.0-100.0); MEAN CORPUSCULAR HEMOGLOBIN 30.4 PG (27.0-34.0); MEAN CORPUSCULAR HGB CONC 33.4 % (32.0-36.0); PLATELET COUNT 271 TH/MM3 (150-450); RED BLOOD COUNT 4.11 MIL/MM3 (4.50-5.90); RED CELL DISTRIBUTION WIDTH 14.3 % (11.6-17.2); REVIEW FLAG FINAL; WHITE BLOOD COUNT 12.2 TH/MM3 (4.0-11.0)
[2016-06-09 05:36] LABS: BICARBONATE 31.8 MEQ/L (21.0-32.0); POTASSIUM 4.5 MEQ/L (3.5-5.1)
--- NOTE | 2016-06-09 07:36 | HHI.CCPN ---
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 The patient underwent placement of right frontal external ventricular drain for acute hydrocephalus and was transferred to [facility] for further treatment of the AVM by embolization followed by suboccipital craniotomy for hematoma evacuation and AVM resection. Postoperatively, he was slow to wake up, his EVD was Clamped and removed and his mental status was improving. Other complications include the UTI and agitation. He was started on Rocephin and Seroquel. The patient is being transferred back to [facility] due to confusion and questionable CSF leak. 06/03: Noted AVM embolization followed by suboccipital craniotomy for hematoma evacuation and AVM resection. Postoperatively, he was slow to wake up and a head CT showed herniation.. Noted CT last night revealed status post partial occipital craniotomy changes with Coils. Currently afebrile. Arousable and will follow commands but won't open eyes. Noted to have leaking from the occipital region plan to go back to or for suturing with neurosurgery. 06/04: Tmax 99. 3 problems overnight. Received 1 dose of Cafergot overnight for headache. Noted placement of a right ventriculostomy secondary to CSF leak yesterday. Patient is arousable. Tolerating tube feeding currently. 06/05: Afebrile. Mentation somewhat improved. Positive BM 4. Tolerating tube feeding. Will follow commands. Answers questions appropriately. 06/06: Afebrile. Sitting up in chair yesterday no acute distress. Positive BM 8 yesterday. Tolerating tube feeding. Follows commands. Still confused but answers questions appropriately. 06/07: Tmax 99. Currently on 2 L nasal cannula. Awake and alert to person only. No more CSF leak overnight. One to 2 word answers per his norm. 8 bowel movements negative C. difficile. 06/08: Tmax 99. Currently on room air. Awake and alert to person. No CSF leak. For bowel movements overnight. Noted that ventricular drain currently at 0 cm H2O 06/09: Tmax 102.2. WBC 12,000. Tolerating TFs. Objective Vital Signs Date Time Temp Pulse Resp B/P Pulse Ox O2 Delivery O2 Flow Rate FiO2 06/09/16 04:00 100.5 102 17 105/63 100 06/08/16 19:56 21 06/08/16 19:00 Room Air 06/07/16 10:10 2.00 Intake and Output 06/08/16 06/08/16 06/08/16 07:59 15:59 23:59 Intake Total 583 ml 664 ml 682 ml Output Total 16 ml 95 ml 20 ml Balance 567 ml 569 ml 662 ml Result Diagram: 06/09/16 0325 06/09/16 0325 Imaging Last Impressions Head CT 06/02/16 0000 Signed Impressions: Service Date/Time: Thursday, June 02, 2016 20:00 - CONCLUSION: Postoperative partial occipital craniectomy for treatment of arteriovenous malformation with vascular coils present in the operative bed. There is encephalomalacia in the posterior fossa involving the posterior cerebellum more so on the left side. No new intracranial hemorrhage. Resolution of previous intraventricular hemorrhage. Removal of previous ventriculostomy. Kirk Cortes MD Objective Remarks GENERAL: 55-year-old male, oriented to self only. SKIN: Warm and dry. No rash HEAD: Open Occipital region with drainage/CSF leak Post occipital craniotomy. Right ventriculostomy clean dry and intact with Biopatch EYES: No scleral icterus. No injection or drainage. NECK: Supple, trachea midline. No obstruction. CARDIOVASCULAR: Bradycardia, RR. S1, S2. No S4. Without murmurs, gallops, or rubs. RESPIRATORY: Breath sounds equal bilaterally. No accessory muscle use. GASTROINTESTINAL: Abdomen soft, non-tender, nondistended. BS active. MUSCULOSKELETAL: No cyanosis, or edema. Well perfused. Neuro: Moves all 4 extremity spontaneously. Opening his eyes to voice, oriented to self. A/P Problem List: (1) AVM (arteriovenous malformation) brain ICD Code: Q28.2 Status: Acute (2) Encephalopathy, traumatic ICD Code: F07.81 Status: Acute (3) UTI (urinary tract infection) ICD Code: N39.0 Status: Acute (4) Agitation ICD Code: R45.1 Status: Acute (5) Cerebellar hemorrhage ICD Code: I61.4 Status: Acute Assessment and Plan Neurologic/Psych: Intracranial hemorrhage Pial AVM Subarachnoid hemorrhage Mild Encephalopathy CSF leak?? - status post AVM embolization followed by suboccipital craniotomy for hematoma evacuation and AVM resection at [facility]. Postoperatively, he was slow to wake up and a head CT showed herniation. - neuro checks per unit protocol - Neurosurgery following, Dr. Flowers. Status post right ventriculostomy 06/03 - -5 cm H2O at 100 cc clear/ yellowish. Now at 0 CABG 20 Maintain ventriculostomy over weekend. Reassess on Thursday - Keppra 500 mg twice a day for seizure prophylaxis - CT of head 06/02 revealed partial occipital craniotomy with coiling. - EEG 06/03 read as normal. No seizure activity. - Currently on Seroquel 25 mg twice a day. Respiratory: - NC to maintain saturations greater than equal to 92% - Incentive spirometry while awake Cardiovascular: Hypertension - Metoprol currently 12.5 milligrams by mouth twice a day with holding parameters for hypotension - continue Telemetry Renal: - Strict I/Os - attempt euvolemia FEN/GI: Acute protein calorie malnutritionmild Hypernatremia Diarrhea - Currently on Jevity 1.5 goal 50 cc an hour - Continue free water 100 cc every 6 - ICU electrolyte protocol - Pepcid for GI prophylaxis - Colace/MiraLAX for bowel regimen held with diarrhea - C. difficile negative Heme Normocytic anemia - Does not meet transfusion triggers at this time. - Daily CBC ID - No infectious etiology suspected this time Noted on CSF WBC 169 - 82% neutrophils and glucose 69/protein 77 high Pertinent cultures 06/03 - CSF - no organisms, NGTD Endocrine: - SSI if needed Prophylaxis: GI Prophylaxis Pepcid 20 mg twice a day: DVT Prophylaxis - SCDs - Heparin subQ Overall impression: New temp worrisome, await cultures. Problem Qualifiers (1) UTI (urinary tract infection): (2) Cerebellar hemorrhage: Qualified Code: I61.4 - Nontraumatic intracerebral hemorrhage of cerebellum, unspecified laterality Ed Eldridge MD Jun 09, 2016 07:36
[2016-06-09] MEDS: FAMOTIDINE 20 MG TAB NG SCH ×2 (08:19→21:00)
[2016-06-09] MEDS: QUEtiapine FUMARATE 25 MG TAB PO SCH ×2 (08:19→21:00)
[2016-06-09] MEDS: METOPROLOL TARTRATE 25 MG TAB PO SCH ×2 (08:19→21:00)
[2016-06-09] MEDS: THIAMINE INJ 100 MG in SODIUM CHLORIDE 0.9% INJ 100 ML IV SCH (08:19)
[2016-06-09] MEDS: HEPARIN SODIUM - SQ 10,000 UNITS/ML VIAL SQ SCH ×2 (08:19→21:00)
[2016-06-09] MEDS: levETIRAcetam 500 MG TAB PO SCH ×2 (08:20→21:00)
[2016-06-09] MEDS: SODIUM CHLORIDE 0.9% FLUSH 5 ML FLUSH IV FLUSH SCH ×2 (08:20→21:00)
--- NOTE | 2016-06-09 10:01 | HHI.NSPN ---
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 The patient underwent placement of right frontal external ventricular drain for acute hydrocephalus and was transferred to [facility] for further treatment of the AVM by embolization followed by suboccipital craniotomy for hematoma evacuation, and AVM resection at [facility] . Postoperatively, he was slow to wake up, his EVD was Clamped and removed at [facility] and his mental status was improving. He had UTI and agitation. He was started on Rocephin and Seroquel. The patient was being transferred back to [facility] due to confusion and CSF leak. 06/04: s/p placement of ventriculostomy drain. no further leaking noted from posterior fossa wound, there has been scab formation also. 06/05: no wound leak seen 06/06: appears more awake today, wound dry, no evidence of CSF leaking overnight 06/09: wound dry, sitting up in chair eating breakfast (Anusha Hastings) Labs, Micro, & Vital Signs Results Date Time Temp Pulse Resp B/P Pulse Ox O2 Delivery O2 Flow Rate FiO2 06/09/16 04:00 100.5 102 17 105/63 100 06/09/16 00:00 99.1 90 14 95/68 99 06/08/16 20:00 102.2 104 14 125/85 98 06/08/16 20:00 104 06/08/16 19:56 100 21 06/08/16 19:00 100 Room Air 06/08/16 16:00 99.1 102 14 106/66 97 06/08/16 12:00 99.6 104 14 127/77 97 06/09/16 07:00 Intake Total 1955 ml Output Total 138.0 ml Balance 1817.0 ml Constitutional Vital Signs Date Time Temp Pulse Resp B/P Pulse Ox O2 Delivery O2 Flow Rate FiO2 06/09/16 04:00 100.5 102 17 105/63 100 06/09/16 00:00 99.1 90 14 95/68 99 06/08/16 20:00 102.2 104 14 125/85 98 06/08/16 20:00 104 06/08/16 19:56 100 21 06/08/16 19:00 100 Room Air 06/08/16 16:00 99.1 102 14 106/66 97 06/08/16 12:00 99.6 104 14 127/77 97 06/09/16 07:00 Intake Total 1955 ml Output Total 138.0 ml Balance 1817.0 ml (Anusha Hastings) Review of Systems/Exam Exam He is alert, oriented to self only. Follows few simple commands. No apparent distress. Suboccipital craniectomy incision is healing well, dry, no drainage noted. Ventriculostomy drain in place and draining well, intact, site is clean. Cranial nerve examination: pupils 2 mm round, and reactive to light. Motor: moves all four extremities well, follows some simple commands Sensory: reports intact to touch x 4 (Anusha Hastings) Medications Current Medications Current Medications Medications (Trade) Dose Ordered Sig/Paula Route PRN Reason Start Time Stop Time Status Last Admin Dose Admin Naloxone HCl (Narcan Inj) 0.4 mg UNSCH PRN IV SEE LABEL COMMENTS 05/29/16 15:00 Acetaminophen/ Butalbital/ Caffeine (Fioricet 325-50-40) 1 tab Q6H PRN PO PAIN GREATER THAN 5 or headach 05/29/16 15:00 06/07/16 21:25 Heparin Sodium (Porcine) (Heparin Inj) 5,000 units Q12HR SQ 05/29/16 21:00 06/09/16 08:19 Levetriacetam (Keppra) 500 mg Q12HR PO 05/29/16 21:00 06/09/16 08:20 Morphine Sulfate (Morphine Inj) 2 mg Q3H PRN IV PUSH BREAKTHROUGH PAIN 06/02/16 10:30 06/08/16 01:03 Diphenhydramine HCl (Benadryl 2% Cream) 1 applic TID PRN TOPICAL ITCHING 06/02/16 11:15 IV Flush (NS Flush) 2 ml UNSCH PRN IV FLUSH FLUSH AFTER USING IV ACCESS 06/03/16 09:45 IV Flush (NS Flush) 2 ml BID IV FLUSH 06/03/16 21:00 06/09/16 08:20 Acetaminophen (Tylenol) 650 mg Q6H PRN PO FEVER >100F 06/03/16 09:45 06/08/16 19:47 Ondansetron HCl (Zofran Inj) 4 mg Q6H PRN IV NAUSEA OR VOMITING 06/03/16 09:45 Docusate Sodium (Colace) 100 mg BID PO 06/03/16 21:00 Hold 06/05/16 20:35 Sennosides (Senokot) 17.2 mg Q12H PRN PO CONSTIPATION 06/03/16 09:45 Hold Miscellaneous Information 1 Q361D XX 06/03/16 09:45 Chlorhexidine Gluconate (Chlorhexidine 2% Cloth) Taper DAILY@04 TOP 06/04/16 04:00 05/31/17 03:59 06/08/16 04:33 Chlorhexidine Gluconate 3 pack 3 pack UNSCH PRN TOP HYGIENIC CARE 06/03/16 09:45 Thiamine HCl/ Sodium Chloride (Thiamine Inj/NS Inj) 101 ml @ 101 mls/hr DAILY IV 06/04/16 09:00 06/09/16 08:19 Polyethylene Glycol 17 gm 17 gm DAILY PO 06/04/16 09:00 Hold Sodium Chloride (NS 1000 ml Inj) 1,000 ml @ 100 mls/hr Q10H IV 06/03/16 21:16 Hold 06/05/16 22:23 Water (Free Water) VOLUME: 100 ML Q6HR G-TUBE 06/04/16 12:00 06/09/16 04:39 Famotidine (Pepcid) 20 mg BID NG 06/04/16 09:00 06/09/16 08:19 Metoprolol Tartrate (Lopressor) 12.5 mg Q12HR PO 06/05/16 21:00 06/09/16 08:19 Quetiapine Fumarate (SEROquel) 25 mg BID PO 06/06/16 09:00 06/09/16 08:19 Loperamide HCl (Imodium Liq) 2 mg UNSCH PRN TUBE DIARRHEA 06/06/16 16:15 06/07/16 21:24 (Anusha Hastings) Medical Decision Making MDM Remarks 55 y/o male s/p posterior fossa craniectomy for evacuation of cerebellar bleed due to AVM with embolization at [facility] s/p ventriculostomy placement for CSF leak (Anusha Hastings) Plan Plan Remarks clamp EVD today, CT Brain in the morning to evaluate for hydrocephalus cont monitor wound for further CSF leak, reopen EVD if he releaks dw nursing (Anusha Hastings) Attending Statement The exam, history, and the medical decision-making described in the above note were completed with the assistance of the mid-level provider. I reviewed and agree with the findings presented. I attest that I had a [id number] encounter with the patient on the same day, and personally performed and documented my assessment and findings in the medical record. (John Flowers MD) Anusha Hastings Jun 09, 2016 10:01 John Flowers MD Jun 11, 2016 17:21
[2016-06-10] VITALS (9 sets, daily range): BP systolic 96–158; BP diastolic 62–80; PULSE 92–112; RESP 12–26; TEMP 98.2–100.2; O2SAT 98–100
[2016-06-10] MEDS: MORPHINE SULFATE 4 MG/ML INJ IV PUSH PRN ×2 (00:49→21:09)
[2016-06-10] MEDS: CHLORHEXIDINE GLUCONATE 2 % 1 PACK (2 CLOTHS) TOP SCH (04:00)
[2016-06-10 04:28] LABS: AUTOMATED NEUTROPHIL # 7.7 TH/MM3 (1.8-7.7); BASOPHIL # 0.1 TH/MM3 (0-0.2); BASOPHIL % 0.8 % (0.0-2.0); EOSINOPHIL # 0.2 TH/MM3 (0-0.4); EOSINOPHIL % 1.8 % (0.0-4.0); HEMATOCRIT 34.8 % (39.0-51.0); HEMO FLAGS DIFF FINAL; LYMPH % 15.7 % (9.0-44.0); LYMPHOCYTE # 1.7 TH/MM3 (1.0-4.8); MEAN CELL VOLUME 89.7 FL (80.0-100.0); MEAN CORPUSCULAR HEMOGLOBIN 30.9 PG (27.0-34.0); MEAN CORPUSCULAR HGB CONC 34.5 % (32.0-36.0); MONO % 9.6 % (0.0-8.0); NEUT % 72.1 % (16.0-70.0); PLATELET COUNT 290 TH/MM3 (150-450); RED BLOOD COUNT 3.88 MIL/MM3 (4.50-5.90); RED CELL DISTRIBUTION WIDTH 14.2 % (11.6-17.2); WHITE BLOOD COUNT 10.6 TH/MM3 (4.0-11.0)
--- NOTE | 2016-06-10 05:47 | RADRPT ---
EXAM DATE/TIME: 06/10/2016 05:01 [facility] COMPARISON: No previous studies available for comparison. INDICATIONS : Evaluate hydrocephalus. RADIATION DOSE: 33.96 CTDIvol (mGy) MEDICAL HISTORY : Carcinoma, rectal. SURGICAL HISTORY : Craniotomy. ENCOUNTER: Subsequent ACUITY: 4 - 6 days PAIN SCALE: Non-responsive LOCATION: cranial TECHNIQUE: Multiple contiguous axial images were obtained of the head. Using automated exposure control and adj ustment of the mA and/or kV according to patient size, radiation dose was kept as low as reasonably a chievable to obtain optimal diagnostic quality images. FINDINGS: Compare June 08. Ventricular size is stable. Right frontal ventriculostomy tube remains in place. Again seen are changes of occipital craniectomy. Fluid collection in the operative bed measures about 3.1 x 5.7 cm which is similar to previous measurement of 2.9 x 5.4 cm at the same location. Several small locules of air remain present although the amount of air in the lesion does appear to be decrea sed. There is partial resection of the posterior left cerebellar hemisphere with numerous vascular co ils present. No new intracranial hemorrhage, mass effect or shift. CONCLUSION: 1. Postop changes of occipital craniectomy for treatment of an arteriovenous malformation in the post erior fossa with residual fluid collection as above. Locules of air within the fluid are decreasing s cary June 08. Right frontal ventriculostomy tube remains present with stable ventricular size. No hydrocephalus. Kirk Cortes MD on June 10, 2016 at 5:40 Board Certified Radiologist. This report was verified electronically.
[2016-06-10] MEDS: FREE WATER G-TUBE SCH ×4 (06:00→18:00)
[2016-06-10] MEDS: ACETAMIN 325 MG/BUTALBITAL 50 MG/CAFFEINE 40 MG TAB PO PRN ×2 (06:12→17:35)
--- NOTE | 2016-06-10 07:42 | HHI.CCPN ---
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 The patient underwent placement of right frontal external ventricular drain for acute hydrocephalus and was transferred to [facility] for further treatment of the AVM by embolization followed by suboccipital craniotomy for hematoma evacuation and AVM resection. Postoperatively, he was slow to wake up, his EVD was Clamped and removed and his mental status was improving. Other complications include the UTI and agitation. He was started on Rocephin and Seroquel. The patient is being transferred back to [facility] due to confusion and questionable CSF leak. 06/03: Noted AVM embolization followed by suboccipital craniotomy for hematoma evacuation and AVM resection. Postoperatively, he was slow to wake up and a head CT showed herniation.. Noted CT last night revealed status post partial occipital craniotomy changes with Coils. Currently afebrile. Arousable and will follow commands but won't open eyes. Noted to have leaking from the occipital region plan to go back to or for suturing with neurosurgery. 06/04: Tmax 99. 3 problems overnight. Received 1 dose of Cafergot overnight for headache. Noted placement of a right ventriculostomy secondary to CSF leak yesterday. Patient is arousable. Tolerating tube feeding currently. 06/05: Afebrile. Mentation somewhat improved. Positive BM 4. Tolerating tube feeding. Will follow commands. Answers questions appropriately. 06/06: Afebrile. Sitting up in chair yesterday no acute distress. Positive BM 8 yesterday. Tolerating tube feeding. Follows commands. Still confused but answers questions appropriately. 06/07: Tmax 99. Currently on 2 L nasal cannula. Awake and alert to person only. No more CSF leak overnight. One to 2 word answers per his norm. 8 bowel movements negative C. difficile. 06/08: Tmax 99. Currently on room air. Awake and alert to person. No CSF leak. For bowel movements overnight. Noted that ventricular drain currently at 0 cm H2O 06/09: Tmax 102.2. WBC 12,000. Tolerating TFs. 06/10: Tmax 99.7. WBC declining. CT Head no change, some resolution of air in posterior fossa. TFs continue. 3/4 bottles blood positive for GPC. Objective Vital Signs Date Time Temp Pulse Resp B/P Pulse Ox O2 Delivery O2 Flow Rate FiO2 06/10/16 06:00 92 06/10/16 04:00 99.3 26 102/67 99 06/09/16 19:34 21 06/09/16 19:00 Room Air 06/07/16 10:10 2.00 Intake and Output 06/09/16 06/09/16 06/10/16 08:00 16:00 00:00 Intake Total 609 ml 838 ml 725 ml Output Total 23.0 ml 255 ml 250 ml Balance 586.0 ml 583 ml 475 ml Result Diagram: 06/10/16 0319 06/09/16 0325 Imaging Last Impressions Head CT 06/02/16 0000 Signed Impressions: Service Date/Time: Thursday, June 02, 2016 20:00 - CONCLUSION: Postoperative partial occipital craniectomy for treatment of arteriovenous malformation with vascular coils present in the operative bed. There is encephalomalacia in the posterior fossa involving the posterior cerebellum more so on the left side. No new intracranial hemorrhage. Resolution of previous intraventricular hemorrhage. Removal of previous ventriculostomy. Kirk Cortes MD Objective Remarks GENERAL: 55-year-old male, oriented to self only. SKIN: Warm and dry. No rash HEAD: Open occipital region with drainage/CSF leak s/post occipital craniotomy. Right ventriculostomy clean and dry. EYES: No scleral icterus. No injection or drainage. NECK: Supple, trachea midline. No obstruction. CARDIOVASCULAR: Bradycardia, RR. S1, S2. No S4. Without murmurs, or rubs. RESPIRATORY: Breath sounds equal bilaterally. No accessory muscle use. Comfortable pattern. GASTROINTESTINAL: Abdomen soft, non-tender, nondistended. BS active. MUSCULOSKELETAL: No cyanosis, or edema. Warm, well perfused. Neuro: Moves all 4 extremity spontaneously. Opening his eyes to voice, oriented to self. A/P Problem List: (1) AVM (arteriovenous malformation) brain ICD Code: Q28.2 Status: Acute (2) Encephalopathy, traumatic ICD Code: F07.81 Status: Acute (3) UTI (urinary tract infection) ICD Code: N39.0 Status: Acute (4) Agitation ICD Code: R45.1 Status: Acute (5) Cerebellar hemorrhage ICD Code: I61.4 Status: Acute Assessment and Plan Neurologic/Psych: Intracranial hemorrhage Pial AVM Subarachnoid hemorrhage Mild Encephalopathy CSF leak?? - status post AVM embolization followed by suboccipital craniotomy for hematoma evacuation and AVM resection at [facility]. Postoperatively, he was slow to wake up and a head CT showed herniation. - neuro checks per unit protocol - Neurosurgery following, Dr. Flowers. Status post right ventriculostomy 06/03 - -5 cm H2O at 100 cc clear/ yellowish. Now at 0 CABG 20 Maintain ventriculostomy over weekend. Reassess on Thursday - Keppra 500 mg twice a day for seizure prophylaxis - CT of head 06/02 revealed partial occipital craniotomy with coiling. - EEG 06/03 read as normal. No seizure activity. - Currently on Seroquel 25 mg twice a day. Respiratory: - NC to maintain saturations greater than equal to 92% - Incentive spirometry while awake Cardiovascular: Hypertension - Metoprol currently 12.5 milligrams by mouth twice a day with holding parameters for hypotension - continue Telemetry Renal: - Strict I/Os - attempt euvolemia FEN/GI: Acute protein calorie malnutritionmild Hypernatremia Diarrhea - Currently on Jevity 1.5 goal 50 cc an hour - Continue free water 100 cc every 6 - ICU electrolyte protocol - Pepcid for GI prophylaxis - Colace/MiraLAX for bowel regimen held with diarrhea - C. difficile negative -Check prealbumin Heme Normocytic anemia - Does not meet transfusion triggers at this time. - Daily CBC ID - No infectious etiology suspected this time Noted on CSF WBC 169 - 82% neutrophils and glucose 69/protein 77 high Pertinent cultures 06/03 - CSF - no organisms, NGTD Endocrine: - SSI if needed Prophylaxis: GI Prophylaxis Pepcid 20 mg twice a day: DVT Prophylaxis - SCDs - Heparin subQ Overall impression: New temp worrisome, await cultures (NGTD). Problem Qualifiers (1) UTI (urinary tract infection): (2) Cerebellar hemorrhage: Qualified Code: I61.4 - Nontraumatic intracerebral hemorrhage of cerebellum, unspecified laterality Ed Eldridge MD Jun 10, 2016 07:42
[2016-06-10] MEDS: METOPROLOL TARTRATE 25 MG TAB PO SCH ×2 (09:00→20:33)
[2016-06-10] MEDS: THIAMINE INJ 100 MG in SODIUM CHLORIDE 0.9% INJ 100 ML IV SCH (09:06)
[2016-06-10] MEDS: FAMOTIDINE 20 MG TAB NG SCH ×2 (09:07→20:32)
[2016-06-10] MEDS: HEPARIN SODIUM - SQ 10,000 UNITS/ML VIAL SQ SCH ×2 (09:07→20:32)
[2016-06-10] MEDS: SODIUM CHLORIDE 0.9% FLUSH 5 ML FLUSH IV FLUSH SCH ×2 (09:07→20:33)
[2016-06-10] MEDS: QUEtiapine FUMARATE 25 MG TAB PO SCH ×2 (09:07→20:32)
[2016-06-10] MEDS: levETIRAcetam 500 MG TAB PO SCH ×2 (09:07→20:32)
[2016-06-10] MEDS ORDERED: Vancomycin Consult Pharmacy 1 EA OTHER SCH (10:15)
[2016-06-10] MEDS: VANCOMYCIN 1,000 MG/NS 250 ML IV SCH ×2 (11:54)
[2016-06-10] MEDS: ACETAMINOPHEN 325 MG TAB PO PRN (16:07)
--- NOTE | 2016-06-10 16:40 | HHI.NSPN ---
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 The patient underwent placement of right frontal external ventricular drain for acute hydrocephalus and was transferred to [facility] for further treatment of the AVM by embolization followed by suboccipital craniotomy for hematoma evacuation, and AVM resection at [facility] . Postoperatively, he was slow to wake up, his EVD was Clamped and removed at [facility] and his mental status was improving. He had UTI and agitation. He was started on Rocephin and Seroquel. The patient was being transferred back to [facility] due to confusion and CSF leak. 06/04: s/p placement of ventriculostomy drain. no further leaking noted from posterior fossa wound, there has been scab formation also. 06/05: no wound leak seen 06/06: appears more awake today, wound dry, no evidence of CSF leaking overnight 06/09: wound dry, sitting up in chair eating breakfast 06/10: follow up CT Brain reviewed (Anusha Hastings) Labs, Micro, & Vital Signs Results Date Time Temp Pulse Resp B/P Pulse Ox O2 Delivery O2 Flow Rate FiO2 06/10/16 16:00 100.2 107 16 121/67 100 06/10/16 12:00 98.6 107 18 120/62 99 06/10/16 08:00 98 06/10/16 08:00 98.2 106 12 96/68 98 06/10/16 07:00 98 Room Air 06/10/16 06:00 92 06/10/16 04:00 101 06/10/16 04:00 99.3 101 26 102/67 99 06/10/16 02:00 102 06/10/16 00:00 99.0 112 18 158/80 99 06/10/16 00:00 112 06/09/16 22:00 98 06/09/16 20:00 102 06/09/16 20:00 99.4 92 23 90/58 99 06/09/16 19:34 98 21 06/09/16 19:00 98 Room Air 06/10/16 07:00 Intake Total 2113 ml Output Total 805 ml Balance 1308 ml Constitutional Vital Signs Date Time Temp Pulse Resp B/P Pulse Ox O2 Delivery O2 Flow Rate FiO2 06/10/16 16:00 100.2 107 16 121/67 100 06/10/16 12:00 98.6 107 18 120/62 99 06/10/16 08:00 98 06/10/16 08:00 98.2 106 12 96/68 98 06/10/16 07:00 98 Room Air 06/10/16 06:00 92 06/10/16 04:00 101 06/10/16 04:00 99.3 101 26 102/67 99 06/10/16 02:00 102 06/10/16 00:00 99.0 112 18 158/80 99 06/10/16 00:00 112 06/09/16 22:00 98 06/09/16 20:00 102 06/09/16 20:00 99.4 92 23 90/58 99 06/09/16 19:34 98 21 06/09/16 19:00 98 Room Air 06/10/16 07:00 Intake Total 2113 ml Output Total 805 ml Balance 1308 ml (Anusha Hastings) Review of Systems/Exam Exam He is alert, oriented to self only. Follows few simple commands. No apparent distress. Suboccipital wound dry. Ventriculostomy drain in place and clamped. Cranial nerve examination: pupils 2 mm round, and reactive to light. Motor: moves all four extremities well, follows some simple commands Sensory: reports intact to touch x 4 (Anusha Hastings) Medications Current Medications Current Medications Medications (Trade) Dose Ordered Sig/Paula Route PRN Reason Start Time Stop Time Status Last Admin Dose Admin Naloxone HCl (Narcan Inj) 0.4 mg UNSCH PRN IV SEE LABEL COMMENTS 05/29/16 15:00 Acetaminophen/ Butalbital/ Caffeine (Fioricet 325-50-40) 1 tab Q6H PRN PO PAIN GREATER THAN 5 or headach 05/29/16 15:00 06/10/16 06:12 Heparin Sodium (Porcine) (Heparin Inj) 5,000 units Q12HR SQ 05/29/16 21:00 06/10/16 09:07 Levetriacetam (Keppra) 500 mg Q12HR PO 05/29/16 21:00 06/10/16 09:07 Morphine Sulfate (Morphine Inj) 2 mg Q3H PRN IV PUSH BREAKTHROUGH PAIN 06/02/16 10:30 06/10/16 00:49 Diphenhydramine HCl (Benadryl 2% Cream) 1 applic TID PRN TOPICAL ITCHING 06/02/16 11:15 IV Flush (NS Flush) 2 ml UNSCH PRN IV FLUSH FLUSH AFTER USING IV ACCESS 06/03/16 09:45 IV Flush (NS Flush) 2 ml BID IV FLUSH 06/03/16 21:00 06/10/16 09:07 Acetaminophen (Tylenol) 650 mg Q6H PRN PO FEVER >100F 06/03/16 09:45 06/10/16 16:07 Ondansetron HCl (Zofran Inj) 4 mg Q6H PRN IV NAUSEA OR VOMITING 06/03/16 09:45 Docusate Sodium (Colace) 100 mg BID PO 06/03/16 21:00 Hold 06/05/16 20:35 Sennosides (Senokot) 17.2 mg Q12H PRN PO CONSTIPATION 06/03/16 09:45 Hold Miscellaneous Information 1 Q361D XX 06/03/16 09:45 Chlorhexidine Gluconate (Chlorhexidine 2% Cloth) Taper DAILY@04 TOP 06/04/16 04:00 05/31/17 03:59 06/10/16 04:00 Chlorhexidine Gluconate 3 pack 3 pack UNSCH PRN TOP HYGIENIC CARE 06/03/16 09:45 Thiamine HCl/ Sodium Chloride (Thiamine Inj/NS Inj) 101 ml @ 101 mls/hr DAILY IV 06/04/16 09:00 06/10/16 09:06 Polyethylene Glycol 17 gm 17 gm DAILY PO 06/04/16 09:00 Hold Sodium Chloride (NS 1000 ml Inj) 1,000 ml @ 100 mls/hr Q10H IV 06/03/16 21:16 Hold 06/05/16 22:23 Water (Free Water) VOLUME: 100 ML Q6HR G-TUBE 06/04/16 12:00 06/10/16 11:54 Famotidine (Pepcid) 20 mg BID NG 06/04/16 09:00 06/10/16 09:07 Metoprolol Tartrate (Lopressor) 12.5 mg Q12HR PO 06/05/16 21:00 06/09/16 08:19 Quetiapine Fumarate (SEROquel) 25 mg BID PO 06/06/16 09:00 06/10/16 09:07 Loperamide HCl 2 mg 2 mg UNSCH PRN TUBE DIARRHEA 06/06/16 16:15 06/07/16 21:24 Pharmacy Profile Note 0 ml @ 0 mls/hr UNSCH OTHER 06/10/16 10:15 Vancomycin HCl/ Sodium Chloride (Vancomycin Inj/ NS 250 ml Inj) 250 ml @ 250 mls/hr Q12H IV 06/10/16 12:00 06/10/16 11:54 Miscellaneous Information SPECIFIC LAB TO BE FERNY... ONCE ONCE XX 06/11/16 23:45 06/11/16 23:46 (Anusha Hastings) Medical Decision Making MDM Remarks 55 y/o male s/p posterior fossa craniectomy for evacuation of cerebellar bleed due to AVM with embolization at [facility] s/p ventriculostomy placement for CSF leak (Anusha Hastings) Plan Plan Remarks CT Brain reviewed, pt developed external hydrocephalus, reopen EVD, plan on [employer] shunt this Thursday (Anusha Hastings) Attending Statement The exam, history, and the medical decision-making described in the above note were completed with the assistance of the mid-level provider. I reviewed and agree with the findings presented. I attest that I had a [id number] encounter with the patient on the same day, and personally performed and documented my assessment and findings in the medical record. (John Flowers MD) Anusha Hastings Jun 10, 2016 16:40 John Flowers MD Jun 11, 2016 17:26
[2016-06-10 19:27] LABS: CSF LYMPHOCYTES 4 %; CSF MONOCYTES 16 %; CSF NEUTROPHILS 80 %; WBC TUBE #1 653 /MM3 (0-10)
[2016-06-10 19:28] LABS: SUPERNATE COLOR TUBE #1 CLEAR (CLEAR)
[2016-06-11] VITALS (13 sets, daily range): BP systolic 110–169; BP diastolic 63–88; PULSE 80–129; RESP 12–28; TEMP 98.5–99.7; O2SAT 96–100
[2016-06-11] MEDS: ACETAMIN 325 MG/BUTALBITAL 50 MG/CAFFEINE 40 MG TAB PO PRN ×3 (00:51→20:43)
[2016-06-11] MEDS: VANCOMYCIN 1,000 MG/NS 250 ML IV SCH ×4 (00:52→12:46)
[2016-06-11] MEDS: MORPHINE SULFATE 4 MG/ML INJ IV PUSH PRN ×2 (02:11→05:15)
[2016-06-11] MEDS: CHLORHEXIDINE GLUCONATE 2 % 1 PACK (2 CLOTHS) TOP SCH (03:49)
[2016-06-11 04:01] LABS: BASOPHIL % 0.4 % (0.0-2.0); EOSINOPHIL # 0.1 TH/MM3 (0-0.4); EOSINOPHIL % 1.6 % (0.0-4.0); HEMATOCRIT 35.4 % (39.0-51.0); HEMO FLAGS DIFF FINAL; LYMPH % 16.3 % (9.0-44.0); LYMPHOCYTE # 1.6 TH/MM3 (1.0-4.8); MEAN CELL VOLUME 90.9 FL (80.0-100.0); MEAN CORPUSCULAR HGB CONC 32.9 % (32.0-36.0); MONO % 9.3 % (0.0-8.0); NEUT % 72.4 % (16.0-70.0); PLATELET COUNT 271 TH/MM3 (150-450); RED CELL DISTRIBUTION WIDTH 14.3 % (11.6-17.2); WHITE BLOOD COUNT 9.6 TH/MM3 (4.0-11.0)
[2016-06-11 04:20] LABS: BICARBONATE 31.8 MEQ/L (21.0-32.0); POTASSIUM 4.4 MEQ/L (3.5-5.1)
[2016-06-11] MEDS: FREE WATER G-TUBE SCH ×4 (06:00→18:00)
--- NOTE | 2016-06-11 09:05 | HHI.CCPN ---
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 The patient underwent placement of right frontal external ventricular drain for acute hydrocephalus and was transferred to [facility] for further treatment of the AVM by embolization followed by suboccipital craniotomy for hematoma evacuation and AVM resection. Postoperatively, he was slow to wake up, his EVD was Clamped and removed and his mental status was improving. Other complications include the UTI and agitation. He was started on Rocephin and Seroquel. The patient is being transferred back to [facility] due to confusion and questionable CSF leak. 06/03: Noted AVM embolization followed by suboccipital craniotomy for hematoma evacuation and AVM resection. Postoperatively, he was slow to wake up and a head CT showed herniation.. Noted CT last night revealed status post partial occipital craniotomy changes with Coils. Currently afebrile. Arousable and will follow commands but won't open eyes. Noted to have leaking from the occipital region plan to go back to or for suturing with neurosurgery. 06/04: Tmax 99. 3 problems overnight. Received 1 dose of Cafergot overnight for headache. Noted placement of a right ventriculostomy secondary to CSF leak yesterday. Patient is arousable. Tolerating tube feeding currently. 06/05: Afebrile. Mentation somewhat improved. Positive BM 4. Tolerating tube feeding. Will follow commands. Answers questions appropriately. 06/06: Afebrile. Sitting up in chair yesterday no acute distress. Positive BM 8 yesterday. Tolerating tube feeding. Follows commands. Still confused but answers questions appropriately. 06/07: Tmax 99. Currently on 2 L nasal cannula. Awake and alert to person only. No more CSF leak overnight. One to 2 word answers per his norm. 8 bowel movements negative C. difficile. 06/08: Tmax 99. Currently on room air. Awake and alert to person. No CSF leak. For bowel movements overnight. Noted that ventricular drain currently at 0 cm H2O 06/09: Tmax 102.2. WBC 12,000. Tolerating TFs. 06/10: Tmax 99.7. WBC declining. CT Head no change, some resolution of air in posterior fossa. TFs continue. 3/4 bottles blood positive for GPC. 06/11: Budding yeast, pseudohyphae in CSF. Enterococcus in blood. Mentation unchanged. ID consulted. Objective Vital Signs Date Time Temp Pulse Resp B/P Pulse Ox O2 Delivery O2 Flow Rate FiO2 06/11/16 07:00 96 Room Air 06/11/16 06:00 114 06/11/16 04:00 98.5 12 124/69 06/10/16 19:33 21 06/07/16 10:10 2.00 Intake and Output 06/10/16 06/10/16 06/11/16 08:00 16:00 00:00 Intake Total 550 ml 1033 ml 541 ml Output Total 300.0 ml 475 ml 42 ml Balance 250.0 ml 558 ml 499 ml Result Diagram: 06/11/16 03006/11/16 030 Imaging Last Impressions Head CT 06/02/16 0000 Signed Impressions: Service Date/Time: Thursday, June 02, 2016 20:00 - CONCLUSION: Postoperative partial occipital craniectomy for treatment of arteriovenous malformation with vascular coils present in the operative bed. There is encephalomalacia in the posterior fossa involving the posterior cerebellum more so on the left side. No new intracranial hemorrhage. Resolution of previous intraventricular hemorrhage. Removal of previous ventriculostomy. Kirk Cortes MD Objective Remarks GENERAL: 55-year-old male, oriented to self only. SKIN: Warm and dry. No rash HEAD: Open occipital region with drainage/CSF leak s/post occipital craniotomy. Right ventriculostomy clean and dry. EYES: No scleral icterus. No injection or drainage. NECK: Supple, trachea midline. No obstruction. Airway widely patent. CARDIOVASCULAR: Bradycardia, RR. S1, S2. No S4. Without murmurs, or rubs. RESPIRATORY: Breath sounds equal bilaterally. No accessory muscle use. Comfortable pattern. GASTROINTESTINAL: Abdomen soft, non-tender, nondistended. BS active. MUSCULOSKELETAL: No cyanosis, or edema. Warm, well perfused. Neuro: Moves all 4 extremity spontaneously. Opening his eyes to voice, oriented to self. Active movement all 4 limbs. Voice OK. A/P Problem List: (1) AVM (arteriovenous malformation) brain ICD Code: Q28.2 Status: Acute (2) Encephalopathy, traumatic ICD Code: F07.81 Status: Acute (3) UTI (urinary tract infection) ICD Code: N39.0 Status: Acute (4) Agitation ICD Code: R45.1 Status: Acute (5) Cerebellar hemorrhage ICD Code: I61.4 Status: Acute Assessment and Plan Neurologic/Psych: Intracranial hemorrhage Pial AVM Subarachnoid hemorrhage Mild Encephalopathy CSF leak?? - status post AVM embolization followed by suboccipital craniotomy for hematoma evacuation and AVM resection at [facility]. Postoperatively, he was slow to wake up and a head CT showed herniation. - neuro checks per unit protocol - Neurosurgery following, Dr. Flowers. Status post right ventriculostomy 06/03 - -5 cm H2O at 100 cc clear/ yellowish. Now at 0 CABG 20 Maintain ventriculostomy over weekend. Reassess on Thursday - Keppra 500 mg twice a day for seizure prophylaxis - CT of head 06/02 revealed partial occipital craniotomy with coiling. - EEG 06/03 read as normal. No seizure activity. - Currently on Seroquel 25 mg twice a day. Respiratory: - NC to maintain saturations greater than equal to 92% - Incentive spirometry while awake Cardiovascular: Hypertension - Metoprol currently 12.5 milligrams by mouth twice a day with holding parameters for hypotension - continue Telemetry Renal: - Strict I/Os - attempt euvolemia FEN/GI: Acute protein calorie malnutritionmild Hypernatremia Diarrhea - Currently on Jevity 1.5 goal 50 cc an hour - Continue free water 100 cc every 6 - ICU electrolyte protocol - Pepcid for GI prophylaxis - Colace/MiraLAX for bowel regimen held with diarrhea - C. difficile negative -Check prealbumin -> 19 Heme Normocytic anemia - Does not meet transfusion triggers at this time. - Daily CBC ID - CSF and blood positive Pertinent cultures 06/03 - CSF - no organisms, NGTD 06/06: Blood Enterococcus -> vancomycin 06/10 06/10: CSF, Yeast Endocrine: - SSI if needed Prophylaxis: GI Prophylaxis Pepcid 20 mg twice a day: DVT Prophylaxis - SCDs - Heparin subQ Overall impression: New temp worrisome, bacteremia and colonized CSF (yeast). Critically ill and septic now. Critical Care 44 mins Problem Qualifiers (1) UTI (urinary tract infection): (2) Cerebellar hemorrhage: Qualified Code: I61.4 - Nontraumatic intracerebral hemorrhage of cerebellum, unspecified laterality Ed Eldridge MD Jun 11, 2016 09:05
[2016-06-11] MEDS: THIAMINE INJ 100 MG in SODIUM CHLORIDE 0.9% INJ 100 ML IV SCH (09:09)
[2016-06-11] MEDS: SODIUM CHLORIDE 0.9% FLUSH 5 ML FLUSH IV FLUSH SCH ×2 (09:10→21:00)
[2016-06-11] MEDS: HEPARIN SODIUM - SQ 10,000 UNITS/ML VIAL SQ SCH ×2 (09:10→20:44)
[2016-06-11] MEDS: METOPROLOL TARTRATE 25 MG TAB PO SCH ×2 (09:11→20:45)
[2016-06-11] MEDS: levETIRAcetam 500 MG TAB PO SCH ×2 (09:12→20:43)
[2016-06-11] MEDS: QUEtiapine FUMARATE 25 MG TAB PO SCH ×2 (09:12→20:43)
[2016-06-11] MEDS: FAMOTIDINE 20 MG TAB NG SCH ×2 (09:12→20:43)
--- NOTE | 2016-06-11 12:27 | PD.ID.CON ---
History of Present Illness Service Infectious Disease Consult Requested By Dr.Kent Eldridge Reason for Consult Evaluation and Mment of Keira ventriculitis and E.faecalis bacteremia. Primary Care Physician No Primary Care Physician Diagnoses: History of Present Illness History obtained by review of medical records. is a 55 y/o CM who was initially admitted to [place] on 05/03/2016 after he was found down, intubated in the field. 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 The patient underwent placement of right frontal external ventricular drain for acute hydrocephalus and was transferred to [facility] for further treatment of the AVM by embolization followed by suboccipital craniotomy for hematoma evacuation and AVM resection. Postoperatively, reportedly he was slow to wake up, his EVD was clamped and removed and his mental status reportedly started improving. Patient was treated for UTI with Rocephin. The patient was transferred back to [place] and was initially admitted under hospitalist service. He subsequently was transferred to the ICU for confusion and questionable CSF leak. On May patient was slow to wake up so a CT head was done which herniation s/p occipital craniotomy changes with presence of coils. He was noted to have leak from Occipital region and was taken to OR by Neurosurgery for right frontal sima hole with placement of a ventriculostomy catheter. On Jun patient spiked temps upto 102.2 F, WBC 12,000. A CT head was repeated and it showed no change with some resolution of air in posterior fossa. Blood cultures were sent as part of new sepsis workup and these grew GPC and patient started on IV Vanco target trough for bacteremia. Per discussion with RN taking care of the patient, he has been agitated and behavior inappropriate at times. CSF was sent for testing which shows WBC, elevation of protein and was cloudy with white deposits. Cultures from CSF are now growing budding yeast with pseudohyphae. ID is consulted for evaluation and Mment of Keira Ventriculitis and E.faecalis bacteremia. Temperature charts reviewed. Meds reviewed. Procedure notes reviewed. Noted patient has coils in the AVM which may not be compatible with MRI. Review of Systems ROS Limitations: Altered Mental Status Past Family Social History Allergies: Coded Allergies: Oxycodone (Unverified Allergy, Intermediate, ITCHY, 01/16/16) Past Medical History Per review of the available medical record: History of rectal mass status post resection and radiation/chemotherapy. Intracranial hemorrhage secondary to AVM as above. Rt sima hole and Ventriculostomy catheter placement 06/03/2016. Past Surgical History Rectal mass resection Craniectomy Reported Medications Reported Meds & Active Scripts Active Reported Cardene IV 20-4.8 mg/200Ml-% (Nicardipine HCl in Dextrose) 1 Kourtney Kourtney Mg IV- CENTRAL PRN Propofol 1,000 Mg/100 Ml Inj Mg IV-CENTRAL PRN Peridex Liq (Chlorhexidine Gluconate (Mouth) Liq) 0.12% Soln 15 Ml SWISH-SPIT BID Protonix (Pantoprazole Sodium) 40 Mg Tab 40 Mg IVP DAILY Dilantin (Phenytoin Extended) 100 Mg Cap 100 Mg IVP Q8HR Potassium Chloride Liq (Potassium Chloride) 40 Meq/15 Ml Soln 40 Meq PO DAILY PRN Miralax Powder (Polyethylene Glycol 3350 Powder) 17 Gm Powd 17 Gm PO BID Mix and dissolve one measuring cap-ful (17 grams) in water or juice. Docusate Sodium-Senna (Sennosides-Docusate Sodium) 8.6-50 Mg Tab 2 Tab PO BID Dextrose 50% (Dextrose) 50 % Inj PRN Nimodipine (Nimodipine (Bulk)) 1 Pow Pow 60 Mg Q6HR Magnebind-400 Rx (Magnesium-Calcium Carbonates-Folic Acid) 400-200-1 Mg Tab 2 Tab PO TID PRN Duoneb (Ipratropium-Albuterol Neb) 0.5-2.5 Mg/3 Ml Neb 1 Nebule INH Q6HR NEB PRN Potassium Phosphate Dibasic (Bulk) 1 Gra Gra 2,000 Mg PRN Zofran Liq (Ondansetron HCl) 4 Mg/5 Ml Soln 4 Mg IVP Q6H PRN Active Ordered Medications Current Medications Medications (Trade) Dose Ordered Sig/Paula Route Start Time Stop Time Status Last Admin (Narcan Inj) 0.4 mg UNSCH PRN IV 05/29/16 15:00 (Fioricet 325-50-40) 1 tab Q6H PRN PO 05/29/16 15:00 06/11/16 09:25 (Heparin Inj) 5,000 units Q12HR SQ 05/29/16 21:00 06/11/16 09:10 (Keppra) 500 mg Q12HR PO 05/29/16 21:00 06/11/16 09:12 (Morphine Inj) 2 mg Q3H PRN IV PUSH 06/02/16 10:30 06/11/16 05:15 (Benadryl 2% Cream) 1 applic TID PRN TOPICAL 06/02/16 11:15 (NS Flush) 2 ml UNSCH PRN IV FLUSH 06/03/16 09:45 (NS Flush) 2 ml BID IV FLUSH 06/03/16 21:00 06/11/16 09:10 (Tylenol) 650 mg Q6H PRN PO 06/03/16 09:45 06/11/16 16:12 (Zofran Inj) 4 mg Q6H PRN IV 06/03/16 09:45 (Colace) 100 mg BID PO 06/03/16 21:00 Hold 06/05/16 20:35 (Senokot) 17.2 mg Q12H PRN PO 06/03/16 09:45 Hold Miscellaneous Information 1 Q361D XX 06/03/16 09:45 (Chlorhexidine 2% Cloth) Taper DAILY@04 TOP 06/04/16 04:00 05/31/17 03:59 06/11/16 03:49 Chlorhexidine Gluconate 3 pack 3 pack UNSCH PRN TOP 06/03/16 09:45 (Thiamine Inj/NS Inj) 101 ml @ 101 mls/hr DAILY IV 06/04/16 09:00 06/11/16 09:09 Polyethylene Glycol 17 gm 17 gm DAILY PO 06/04/16 09:00 Hold (NS 1000 ml Inj) 1,000 ml @ 100 mls/hr Q10H IV 06/03/16 21:16 Hold 06/05/16 22:23 (Free Water) VOLUME: 100 ML Q6HR G-TUBE 06/04/16 12:00 06/11/16 12:00 (Pepcid) 20 mg BID NG 06/04/16 09:00 06/11/16 09:12 (Lopressor) 12.5 mg Q12HR PO 06/05/16 21:00 06/11/16 09:11 (SEROquel) 25 mg BID PO 06/06/16 09:00 06/11/16 09:12 Loperamide HCl 2 mg 2 mg UNSCH PRN TUBE 06/06/16 16:15 06/07/16 21:24 Pharmacy Profile Note 0 ml @ 0 mls/hr UNSCH OTHER 06/10/16 10:15 (Vancomycin Inj/ NS 250 ml Inj) 250 ml @ 250 mls/hr Q12H IV 06/10/16 12:00 06/11/16 12:46 Miscellaneous Information SPECIFIC LAB TO BE FERNY... ONCE ONCE XX 06/11/16 23:45 06/11/16 23:46 (Ambisome Inj/ D5W Inj) 200 ml @ 250 mls/hr Q24H IV 06/11/16 15:00 06/11/16 14:51 (Amphotericin B Conv Inj) 1 mg Q24H OTHER 06/11/16 18:00 (Benadryl Inj) 25 mg Q24H PRN IV 06/11/16 17:00 06/11/16 18:10 (SoluCORTEF INJ) 25 mg Q24H PRN IV 06/11/16 17:00 06/11/16 18:09 Family History could not be obtained. Social History Patient has a history of tobacco abuse and 2-3 beers daily on previous hospital visits Physical Exam Vital Signs Vital Signs Date Time Temp Pulse Resp B/P Pulse Ox O2 Delivery O2 Flow Rate FiO2 06/11/16 10:47 96 21 06/11/16 10:25 14 06/11/16 10:00 110 06/11/16 08:00 118 06/11/16 08:00 98.6 118 25 127/88 97 06/11/16 07:00 96 Room Air 06/11/16 06:00 114 06/11/16 04:00 102 06/11/16 04:00 98.5 103 12 124/69 96 06/11/16 02:00 98 06/11/16 00:00 91 06/11/16 00:00 98.5 92 13 110/74 100 06/10/16 21:14 20 06/10/16 20:00 96 06/10/16 20:00 Room Air 06/10/16 20:00 98.2 98 22 108/67 99 06/10/16 19:33 98 21 06/10/16 17:07 17 06/10/16 16:00 100.2 107 16 121/67 100 Physical Exam GENERAL: Thin built, well-developed patient, in no apparent distress. SKIN: No rashes. Cool and dry. HEAD: Surgical site with no e/o infection. Ventric site with no gross e/o infection. EYES: Pupils equal round and reactive. Extraocular motions intact. ENT: Nose without bleeding, purulent drainage or septal hematoma. Throat without erythema, tonsillar hypertrophy or exudate. Uvula midline. Airway patent. NECK: Trachea midline.Supple, nontender, neck not very supple. Some stiffness towards end on flexion. ? patient reliability. CARDIOVASCULAR: Regular rate and rhythm. No murmur appreciated. RESPIRATORY: Clear to auscultation. Breath sounds equal bilaterally. No wheezes , rales, or rhonchi. GASTROINTESTINAL: Abdomen soft, non-tender, nondistended. MUSCULOSKELETAL: Extremities without clubbing, cyanosis, or edema. No joint tenderness, effusion, or edema noted. Brudzinksi skin could not be interpreted accurately as patients answers were inconsistent. NEUROLOGICAL: Awake and alert. Responds to questions not appropriate all the times. Moves all 4 extremities. Psych: cooperative IV line sites with no e/o infection. Laboratory Laboratory Tests Test 06/10/16 06/11/16 16:50 03:07 CSF Supernatant Color (tube 1) CLEAR CSF WBC (Tube 1) 653 CSF RBC (Tube 1) 693 CSF Neutrophils 80 CSF Lymphocytes 4 CSF Monocytes 16 CSF Differential Comment CSF Glucose 13 CSF Total Protein 60.2 White Blood Count 9.6 Red Blood Count 3.90 Hemoglobin 11.7 Hematocrit 35.4 Mean Corpuscular Volume 90.9 Mean Corpuscular Hemoglobin 30.0 Mean Corpuscular Hemoglobin 32.9 Concent Red Cell Distribution Width 14.3 Platelet Count 271 Mean Platelet Volume 8.8 Neutrophils (%) (Auto) 72.4 Lymphocytes (%) (Auto) 16.3 Monocytes (%) (Auto) 9.3 Eosinophils (%) (Auto) 1.6 Basophils (%) (Auto) 0.4 Neutrophils # (Auto) 7.0 Lymphocytes # (Auto) 1.6 Monocytes # (Auto) 0.9 Eosinophils # (Auto) 0.1 Basophils # (Auto) 0.0 CBC Comment DIFF FINAL Differential Comment Sodium Level 142 Potassium Level 4.4 Chloride Level 105 Carbon Dioxide Level 31.8 Anion Gap 5 Blood Urea Nitrogen 11 Creatinine 0.47 Estimat Glomerular Filtration 186 Rate Random Glucose 100 Calcium Level 8.8 Prealbumin 18 Date/Time Procedure Status Source Growth 06/11/16 05:05 Aerobic Blood Culture Received Blood Peripheral Pending 06/11/16 05:05 Anaerobic Blood Culture Received Blood Peripheral Pending 06/11/16 05:05 Blood Fungal Culture Received Blood Peripheral Pending 06/11/16 05:05 Blood Fungal Culture Received Blood Peripheral Pending 06/10/16 16:50 Gram Stain - Final Resulted Cerebral Spinal Fluid Shunt Fluid 06/10/16 16:50 CSF Culture - Preliminary Resulted Yeast-Id To Follow 06/09/16 08:30 Aerobic Blood Culture - Final Resulted Blood Peripheral Micrococcus Species 06/09/16 08:30 Anaerobic Blood Culture - Preliminary Resulted Gram Positive Cocci 06/09/16 08:22 Aerobic Blood Culture - Preliminary Resulted Blood Peripheral Enterococcus Faecium 06/09/16 08:22 Anaerobic Blood Culture - Preliminary Resulted Blood Peripheral NO GROWTH IN 2 DAYS Result Diagram: 06/11/16 0307 06/11/16 0307 Imaging Last Impressions Head CT 06/10/16 0600 Signed Impressions: Service Date/Time: Friday, June 10, 2016 05:01 - CONCLUSION: 1. 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 Locules of air within the fluid are decreasing since June 08. Right frontal ventriculostomy tube remains present with stable ventricular size. No hydrocephalus. Kirk Cortes MD Assessment and Plan Assessment and Plan Keira albicans ventriculitis. MRI cannot be performed due to coils. CSF fluid was very cloudy and had fungal sediments. Patient candidate for SOCIAL SERVICE LIAISON shunt in near future. E.faecalis bacteremia: No central lines or PIVs. SIRS/Sepsis now controlled since Vanco IV started. AVM was transferred to [facility] for further treatment of the AVM by embolization followed by suboccipital craniotomy for hematoma evacuation and AVM resection. CSF leak and hydrocephalus s/p Rt sima hole and Ventriculostomy catheter placement 06/03/2016. Recs: Repeat blood cultures x 2 Change PIVs: d.w RN Fungal blood culture IV amphotericin Follow K,Mg, Phos, Cr daily while patient on Amphotericin Liposomal IV Intraventricular Amphotericin (d/w pharmacist IDSA recs for composition). To be instilled by or associates. MRI brain cannot be performed to look for ventriculitis or e/o fungal balls at base on skull foramina. Will follow clinically for ventriculitis, cranial nerve involvement and hydrocephalus. Continue IV Vanco target trough 15-20 Follow cultures Follow clinically D/w about replacement of ventriculostomy. Patient not cleared at this point for SOCIAL SERVICE LIAISON shunt placement. The length of the Keira Ventriculitis treatment will be dependent on subsequent CSF fluid analysis and cultures obtained at 21 days of treatment with above regimen of Ampho Intravenous as well as through ventriculostomy catheter. Will d/w Radiology about type of AVM coil and MRI compatibility. D.w Micro: sent keira to [facility] for susceptibility. Keira speciated as albicans. D/w : infusion reaction that happened later in the day etc. D/w RN: added Benadryl IV and Hydrocortisone IV as premedication for Amphotericin IV. D/w Anusha guardado and notified dose for ventric infusion is ready. Time spent in excess of 80 mins. Critical thinking, decision making, d.w RN, MD , PA, Pharmacist. Micro. Jenifer Babin MD Jun 11, 2016 12:27
[2016-06-11] MEDS ORDERED: AMPHOTERICIN B LIPOSOME IV SCH ×2 (15:00)
[2016-06-11] MEDS ORDERED: DEXTROSE 5% IV SCH ×2 (15:00)
[2016-06-11] MEDS ORDERED: WATER IV SCH ×2 (15:00)
[2016-06-11] MEDS: ACETAMINOPHEN 325 MG TAB PO PRN (16:12)
[2016-06-11] MEDS: AMPHOTERICIN B 50 MG OTHER SCH (18:00)
[2016-06-11] MEDS: HYDROCORTISONE SOD SUCCINATE 100 MG VIAL IV PRN (18:09)
[2016-06-11] MEDS: diphenhydrAMINE HCL 50 MG/ML VIAL IV PRN (18:10)
--- NOTE | 2016-06-11 18:55 | HHI.PR ---
Addendum to Inpatient Note Addendum Reason: Additional Documentation Additional Information Neurosurgery to coordinate daily instillation of Amphotericin as per dose ordered for Ventriculostomy catheter infusion. Left message with RN and team. Jenifer Babin MD Jun 11, 2016 18:55
[2016-06-11] MEDS ORDERED: PHARMACY ORDERED LAB XX ONE (23:45)
[2016-06-12] VITALS (15 sets, daily range): BP systolic 102–143; BP diastolic 59–83; PULSE 78–117; RESP 13–27; TEMP 98.1–103; O2SAT 94–100
[2016-06-12] MEDS: VANCOMYCIN 1,000 MG/NS 250 ML IV SCH ×2 (02:06)
[2016-06-12] MEDS: ACETAMIN 325 MG/BUTALBITAL 50 MG/CAFFEINE 40 MG TAB PO PRN ×3 (03:24→21:08)
[2016-06-12] MEDS: CHLORHEXIDINE GLUCONATE 2 % 1 PACK (2 CLOTHS) TOP SCH (03:42)
[2016-06-12] MEDS: MORPHINE SULFATE 4 MG/ML INJ IV PUSH PRN ×2 (03:49→13:49)
[2016-06-12 04:42] LABS: AUTOMATED NEUTROPHIL # 7.9 TH/MM3 (1.8-7.7); BASOPHIL # 0.1 TH/MM3 (0-0.2); BASOPHIL % 0.6 % (0.0-2.0); EOSINOPHIL # 0.1 TH/MM3 (0-0.4); EOSINOPHIL % 1.3 % (0.0-4.0); HEMATOCRIT 33.3 % (39.0-51.0); HEMO FLAGS DIFF FINAL; LYMPH % 9.7 % (9.0-44.0); MEAN CELL VOLUME 89.9 FL (80.0-100.0); MEAN CORPUSCULAR HEMOGLOBIN 30.1 PG (27.0-34.0); MEAN CORPUSCULAR HGB CONC 33.6 % (32.0-36.0); MONO % 8.3 % (0.0-8.0); NEUT % 80.1 % (16.0-70.0); PLATELET COUNT 313 TH/MM3 (150-450); WHITE BLOOD COUNT 9.9 TH/MM3 (4.0-11.0)
[2016-06-12 05:15] LABS: ALT (GPT) 73 U/L (12-78); ANION GAP 8 MEQ/L (5-15); AST (GOT) 27 U/L (15-37); BICARBONATE 30.4 MEQ/L (21.0-32.0); BLOOD UREA NITROGEN 12 MG/DL (7-18); CHLORIDE 102 MEQ/L (98-107); GLOMERULAR FILTRATION RATE 201 ML/MIN (>89); SODIUM (NA) 140 MEQ/L (136-145)
[2016-06-12 05:17] LABS: ALKALINE PHOSPHATASE 99 U/L (45-117); TOTAL BILIRUBIN ADULT 0.2 MG/DL (0.2-1.0)
[2016-06-12] MEDS: FREE WATER G-TUBE SCH ×4 (06:00→16:27)
[2016-06-12] MEDS ORDERED: POTASSIUM PHOSPHATE MONOBASIC 500 MG TAB PO/TUBE PRN (07:15)
[2016-06-12] MEDS ORDERED: MAGNESIUM SULFATE INJ 4 GM in SODIUM CHLORIDE 0.9% INJ 92 ML IV PRN (07:15)
[2016-06-12] MEDS ORDERED: POTASSIUM CL 40 MEQ/30 ML LIQ UDC PO/TUBE PRN (07:15)
[2016-06-12] MEDS ORDERED: POTASSIUM CHLOR 40 MEQ PREMIX 100 ML IV PRN (07:15)
[2016-06-12] MEDS ORDERED: POTASSIUM PHOSPHATE INJ 30 MMOL in SODIUM CHLOR 0.9% 250 ML INJ 250 ML IV PRN (07:15)
[2016-06-12] MEDS ORDERED: SODIUM PHOSPHATE INJ 30 MMOL in SODIUM CHLOR 0.9% 250 ML INJ 240 ML IV PRN (07:15)
[2016-06-12] MEDS ORDERED: MAGNESIUM OXIDE 400 MG TAB PO PRN (07:15)
[2016-06-12] MEDS ORDERED: POTASSIUM PHOSPHATE MONOBASIC 500 MG TAB PO PRN (07:15)
[2016-06-12] MEDS ORDERED: MAGNESIUM SULFATE INJ 2 GM in SODIUM CHLORIDE 0.9% INJ 96 ML IV PRN (07:15)
[2016-06-12] MEDS ORDERED: POTASSIUM CHLOR 20 MEQ PREMIX 100 ML IV PRN ×2 (07:15)
--- NOTE | 2016-06-12 07:16 | HHI.CCPN ---
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 The patient underwent placement of right frontal external ventricular drain for acute hydrocephalus and was transferred to [facility] for further treatment of the AVM by embolization followed by suboccipital craniotomy for hematoma evacuation and AVM resection. Postoperatively, he was slow to wake up, his EVD was Clamped and removed and his mental status was improving. Other complications include the UTI and agitation. He was started on Rocephin and Seroquel. The patient is being transferred back to [facility] due to confusion and questionable CSF leak. 06/03: Noted AVM embolization followed by suboccipital craniotomy for hematoma evacuation and AVM resection. Postoperatively, he was slow to wake up and a head CT showed herniation.. Noted CT last night revealed status post partial occipital craniotomy changes with Coils. Currently afebrile. Arousable and will follow commands but won't open eyes. Noted to have leaking from the occipital region plan to go back to or for suturing with neurosurgery. 06/04: Tmax 99. 3 problems overnight. Received 1 dose of Cafergot overnight for headache. Noted placement of a right ventriculostomy secondary to CSF leak yesterday. Patient is arousable. Tolerating tube feeding currently. 06/05: Afebrile. Mentation somewhat improved. Positive BM 4. Tolerating tube feeding. Will follow commands. Answers questions appropriately. 06/06: Afebrile. Sitting up in chair yesterday no acute distress. Positive BM 8 yesterday. Tolerating tube feeding. Follows commands. Still confused but answers questions appropriately. 06/07: Tmax 99. Currently on 2 L nasal cannula. Awake and alert to person only. No more CSF leak overnight. One to 2 word answers per his norm. 8 bowel movements negative C. difficile. 06/08: Tmax 99. Currently on room air. Awake and alert to person. No CSF leak. For bowel movements overnight. Noted that ventricular drain currently at 0 cm H2O 06/09: Tmax 102.2. WBC 12,000. Tolerating TFs. 06/10: Tmax 99.7. WBC declining. CT Head no change, some resolution of air in posterior fossa. TFs continue. 3/4 bottles blood positive for GPC. 06/11: Budding yeast, pseudohyphae in CSF. Enterococcus in blood. Mentation unchanged. ID consulted. 06/12: Started on Liposomal Ampho B, premedicated for mild reaction. Mentation unchanged. Objective Vital Signs Date Time Temp Pulse Resp B/P Pulse Ox O2 Delivery O2 Flow Rate FiO2 06/12/16 06:00 78 06/12/16 04:00 98.5 15 106/59 97 06/11/16 19:27 21 06/11/16 19:00 Room Air Intake and Output 06/11/16 06/11/16 06/11/16 07:59 15:59 23:59 Intake Total 954 ml 806 ml 821 ml Output Total 192 ml 90 ml 19 ml Balance 762 ml 716 ml 802 ml Result Diagram: 06/12/16 0400 06/12/16 0400 Imaging Last Impressions Head CT 06/02/16 0000 Signed Impressions: Service Date/Time: Thursday, June 02, 2016 20:00 - CONCLUSION: Postoperative partial occipital craniectomy for treatment of arteriovenous malformation with vascular coils present in the operative bed. There is encephalomalacia in the posterior fossa involving the posterior cerebellum more so on the left side. No new intracranial hemorrhage. Resolution of previous intraventricular hemorrhage. Removal of previous ventriculostomy. Kirk Cortes MD Objective Remarks GENERAL: 55-year-old male, remains conversant but oriented to self only. SKIN: Warm and dry. No rashes. HEAD: Open occipital region with drainage/CSF leak s/post occipital craniotomy. Right ventriculostomy clean and dry, fluid cloudy starting 06/10. EYES: No scleral icterus. No injection or drainage. NECK: Supple. No obstruction. Airway widely patent. CARDIOVASCULAR: Bradycardia, RR. S1, S2. No S4. Without murmurs, or rubs. RESPIRATORY: Breath sounds equal bilaterally. No accessory muscle use. Comfortable pattern. GASTROINTESTINAL: Abdomen soft, non-tender, nondistended. BS active. MUSCULOSKELETAL: No cyanosis, or edema. Warm, well perfused. Neuro: Moves all 4 extremities spontaneously. Opening his eyes to voice, oriented to self. Active movement all 4 limbs. A/P Problem List: (1) AVM (arteriovenous malformation) brain ICD Code: Q28.2 Status: Acute (2) Encephalopathy, traumatic ICD Code: F07.81 Status: Acute (3) UTI (urinary tract infection) ICD Code: N39.0 Status: Acute (4) Agitation ICD Code: R45.1 Status: Acute (5) Cerebellar hemorrhage ICD Code: I61.4 Status: Acute Assessment and Plan Neurologic/Psych: Intracranial hemorrhage Pial AVM Subarachnoid hemorrhage Mild Encephalopathy CSF leak?? - status post AVM embolization followed by suboccipital craniotomy for hematoma evacuation and AVM resection at [facility]. Postoperatively, he was slow to wake up and a head CT showed herniation. - neuro checks per unit protocol - Neurosurgery following, Dr. Flowers. Status post right ventriculostomy 06/03 - -5 cm H2O at 100 cc clear/ yellowish. Now at 0 CABG 20 Maintain ventriculostomy over weekend. Reassess on Thursday - Keppra 500 mg twice a day for seizure prophylaxis - CT of head 06/02 revealed partial occipital craniotomy with coiling. - EEG 06/03 read as normal. No seizure activity. - Currently on Seroquel 25 mg twice a day. -Medications controlling agitation well now 06/12 Respiratory: - NC to maintain saturations greater than equal to 92% - Incentive spirometry while awake if he'll cooperate. Cardiovascular: Hypertension - Metoprol currently 12.5 milligrams by mouth twice a day with holding parameters for hypotension - continue Telemetry Renal: - Strict I/Os - attempt euvolemia - Keep well hydrated during Ampho B infusion. FEN/GI: Acute protein calorie malnutritionmild Hypernatremia Diarrhea - Currently on Jevity 1.5 goal 50 cc an hour - Continue free water 100 cc every 6 - ICU electrolyte protocol - Pepcid for GI prophylaxis - Colace/MiraLAX for bowel regimen held with diarrhea - C. difficile negative - Check prealbumin -> 19, better than expected, continue TFs as ordered. Add benepro. Heme Normocytic anemia - Does not meet transfusion triggers at this time. - Daily CBC ID - CSF and blood positive Pertinent cultures 06/03 - CSF - no organisms, NGTD 06/06: Blood Enterococcus -> vancomycin 06/10 06/10: CSF, Yeast Endocrine: - SSI if needed Prophylaxis: GI Prophylaxis Pepcid 20 mg twice a day: DVT Prophylaxis - SCDs - Heparin subQ Overall impression: New temp worrisome, bacteremia and colonized CSF (Hermila albicans). Remains critically ill and septic. Critical Care 40 mins Problem Qualifiers (1) UTI (urinary tract infection): (2) Cerebellar hemorrhage: Qualified Code: I61.4 - Nontraumatic intracerebral hemorrhage of cerebellum, unspecified laterality Ed Eldridge MD Jun 12, 2016 07:16
[2016-06-12] MEDS: SODIUM CHLORIDE 0.9% FLUSH 5 ML FLUSH IV FLUSH SCH ×2 (08:33→21:08)
[2016-06-12] MEDS: THIAMINE INJ 100 MG in SODIUM CHLORIDE 0.9% INJ 100 ML IV SCH (08:34)
[2016-06-12] MEDS: METOPROLOL TARTRATE 25 MG TAB PO SCH ×2 (08:34→21:08)
[2016-06-12] MEDS: HEPARIN SODIUM - SQ 10,000 UNITS/ML VIAL SQ SCH ×2 (08:35→21:07)
[2016-06-12] MEDS: levETIRAcetam 500 MG TAB PO SCH ×2 (08:37→21:08)
[2016-06-12] MEDS: FAMOTIDINE 20 MG TAB NG SCH ×2 (08:37→21:08)
[2016-06-12] MEDS: QUEtiapine FUMARATE 25 MG TAB PO SCH ×2 (08:37→21:08)
[2016-06-12] MEDS ORDERED: MIDAZOLAM HCL 5 MG/ML VIAL (1 ML) IV ONE (09:30)
--- NOTE | 2016-06-12 09:42 | HHI.NSPN ---
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 The patient underwent placement of right frontal external ventricular drain for acute hydrocephalus and was transferred to [facility] for further treatment of the AVM by embolization followed by suboccipital craniotomy for hematoma evacuation, and AVM resection at [facility] . Postoperatively, he was slow to wake up, his EVD was Clamped and removed at [facility] and his mental status was improving. He had UTI and agitation. He was started on Rocephin and Seroquel. The patient was being transferred back to [facility] due to confusion and CSF leak. 06/04: s/p placement of ventriculostomy drain. no further leaking noted from posterior fossa wound, there has been scab formation also. 06/05: no wound leak seen 06/06: appears more awake today, wound dry, no evidence of CSF leaking overnight 06/09: wound dry, sitting up in chair eating breakfast 06/10: follow up CT Brain reviewed 06/11: prelim CSF testing shows elevated WBCs, proteins with low glucose, (Anusha Hastings) Labs, Micro, & Vital Signs Results Date Time Temp Pulse Resp B/P Pulse Ox O2 Delivery O2 Flow Rate FiO2 06/12/16 07:25 97 21 06/12/16 07:00 96 Room Air 06/12/16 06:00 78 06/12/16 04:00 98.5 98 15 106/59 97 06/12/16 04:00 98 06/12/16 02:00 104 06/12/16 00:00 98.3 100 13 120/70 99 06/12/16 00:00 100 06/11/16 22:00 80 06/11/16 20:00 98.6 92 17 115/79 100 06/11/16 20:00 92 06/11/16 19:27 99 21 06/11/16 19:00 98 Room Air 06/11/16 18:00 82 06/11/16 17:12 13 06/11/16 16:00 99.7 129 28 169/63 96 06/11/16 16:00 129 06/11/16 12:00 99.6 110 21 110/73 97 06/11/16 12:00 110 06/11/16 10:47 96 21 06/11/16 10:25 14 06/11/16 10:00 110 06/12/16 07:00 Intake Total 2400 ml Output Total 131 ml Balance 2269 ml Constitutional Vital Signs Date Time Temp Pulse Resp B/P Pulse Ox O2 Delivery O2 Flow Rate FiO2 06/12/16 07:25 97 21 06/12/16 07:00 96 Room Air 06/12/16 06:00 78 06/12/16 04:00 98.5 98 15 106/59 97 06/12/16 04:00 98 06/12/16 02:00 104 06/12/16 00:00 98.3 100 13 120/70 99 06/12/16 00:00 100 06/11/16 22:00 80 06/11/16 20:00 98.6 92 17 115/79 100 06/11/16 20:00 92 06/11/16 19:27 99 21 06/11/16 19:00 98 Room Air 06/11/16 18:00 82 06/11/16 17:12 13 06/11/16 16:00 99.7 129 28 169/63 96 06/11/16 16:00 129 06/11/16 12:00 99.6 110 21 110/73 97 06/11/16 12:00 110 06/11/16 10:47 96 21 06/11/16 10:25 14 06/11/16 10:00 110 06/12/16 07:00 Intake Total 2400 ml Output Total 131 ml Balance 2269 ml (Anusha Hastings) Review of Systems/Exam Exam THIS NOTE IS FOR 06/11/16 WHEN PATIENT WAS SEEN AND EXAMINED DURING MORNING ROUNDS He is alert, oriented to self only. Follows few simple commands. No apparent distress. Keeps his eyes closed today. Suboccipital wound dry. Ventriculostomy drain in place, open at 0 cm H20. Cranial nerve examination: pupils 2 mm round, and reactive to light. Motor: moves all four extremities to command, cannot assess detail exam due to clinical condition (Anusha Hastings) Medications Current Medications Current Medications Medications (Trade) Dose Ordered Sig/Paula Route PRN Reason Start Time Stop Time Status Last Admin Dose Admin Naloxone HCl (Narcan Inj) 0.4 mg UNSCH PRN IV SEE LABEL COMMENTS 05/29/16 15:00 Acetaminophen/ Butalbital/ Caffeine (Fioricet 325-50-40) 1 tab Q6H PRN PO PAIN GREATER THAN 5 or headach 05/29/16 15:00 06/12/16 03:24 Heparin Sodium (Porcine) (Heparin Inj) 5,000 units Q12HR SQ 05/29/16 21:00 06/12/16 08:35 Levetriacetam (Keppra) 500 mg Q12HR PO 05/29/16 21:00 06/12/16 08:37 Morphine Sulfate (Morphine Inj) 2 mg Q3H PRN IV PUSH BREAKTHROUGH PAIN 06/02/16 10:30 06/12/16 03:49 Diphenhydramine HCl (Benadryl 2% Cream) 1 applic TID PRN TOPICAL ITCHING 06/02/16 11:15 IV Flush (NS Flush) 2 ml UNSCH PRN IV FLUSH FLUSH AFTER USING IV ACCESS 06/03/16 09:45 IV Flush (NS Flush) 2 ml BID IV FLUSH 06/03/16 21:00 06/12/16 08:33 Acetaminophen (Tylenol) 650 mg Q6H PRN PO FEVER >100F 06/03/16 09:45 06/11/16 16:12 Ondansetron HCl (Zofran Inj) 4 mg Q6H PRN IV NAUSEA OR VOMITING 06/03/16 09:45 Docusate Sodium (Colace) 100 mg BID PO 06/03/16 21:00 Hold 06/05/16 20:35 Sennosides (Senokot) 17.2 mg Q12H PRN PO CONSTIPATION 06/03/16 09:45 Hold Miscellaneous Information 1 Q361D XX 06/03/16 09:45 Chlorhexidine Gluconate (Chlorhexidine 2% Cloth) Taper DAILY@04 TOP 11/30/16 04:00 05/31/17 03:59 06/11/16 03:49 Chlorhexidine Gluconate 3 pack 3 pack UNSCH PRN TOP HYGIENIC CARE 06/03/16 09:45 Thiamine HCl/ Sodium Chloride (Thiamine Inj/NS Inj) 101 ml @ 101 mls/hr DAILY IV 06/04/16 09:00 06/12/16 08:34 Polyethylene Glycol 17 gm 17 gm DAILY PO 06/04/16 09:00 Hold Sodium Chloride (NS 1000 ml Inj) 1,000 ml @ 100 mls/hr Q10H IV 06/03/16 21:16 Hold 06/05/16 22:23 Water (Free Water) VOLUME: 100 ML Q6HR G-TUBE 06/04/16 12:00 06/12/16 06:00 Famotidine (Pepcid) 20 mg BID NG 06/04/16 09:00 06/12/16 08:37 Metoprolol Tartrate (Lopressor) 12.5 mg Q12HR PO 06/05/16 21:00 06/11/16 20:45 Quetiapine Fumarate (SEROquel) 25 mg BID PO 06/06/16 09:00 06/12/16 08:37 Loperamide HCl 2 mg 2 mg UNSCH PRN TUBE DIARRHEA 06/06/16 16:15 06/07/16 21:24 Pharmacy Profile Note (Vancomycin Consult Pharmacy) 0 ml @ 0 mls/hr UNSCH OTHER 06/10/16 10:15 Amphotericin B (Amphotericin B Conv Inj) 1 mg Q24H OTHER 06/11/16 18:00 Diphenhydramine HCl (Benadryl Inj) 25 mg Q24H PRN IV PRE-MED PRIOR TO AMPHOTERCIN B 06/11/16 17:00 06/11/16 18:10 Hydrocortisone Sodium Succinate 25 mg 25 mg Q24H PRN IV PRE-MED PRIOR TO AMPHOTERCIN B 06/11/16 17:00 06/11/16 18:09 Amphotericin B Liposome 280 mg/ Dextrose 280 ml @ 125 mls/hr Q24H IV 06/12/16 15:00 Potassium Chloride 100 ml @ 50 mls/hr Q2H PRN IV For Potassium 2.8 - 3.2 mEq/L 06/12/16 07:15 Potassium Chloride (KCl 20 Meq Premix Inj) 100 ml @ 50 mls/hr Q2H PRN IV For Potassium 2.8 - 3.2 mEq/L 06/12/16 07:15 Potassium Chloride 40 meq 40 meq UNSCH PRN PO/TUBE For Potassium 3.3 - 3.5 mEq/L 06/12/16 07:15 Potassium Chloride 100 ml @ 25 mls/hr UNSCH PRN IV For Potassium 3.3 - 3.5 mEq/L 06/12/16 07:15 Potassium Chloride 100 ml @ 50 mls/hr Q2H PRN IV For Potassium 3.3 - 3.5 mEq/L 06/12/16 07:15 Magnesium Sulfate/ Sodium Chloride (Magnesium Sulfate Inj/NS Inj) 100 ml @ 50 mls/hr UNSCH PRN IV For Magnesium 0.9 - 1.1 mg/dL 06/12/16 07:15 Magnesium Oxide 800 mg 800 mg UNSCH PRN PO For Magnesium 1.2 - 1.6 mg/dL 06/12/16 07:15 Magnesium Sulfate/ Sodium Chloride (Magnesium Sulfate Inj/NS Inj) 100 ml @ 50 mls/hr UNSCH PRN IV For Magnesium 1.2 - 1.6 mg/dL 06/12/16 07:15 Potassium Phosphate 2000 mg 2,000 mg Q4H PRN PO For Phosphorus < 2.5 mg/dL 06/12/16 07:15 Sodium Phosphate/ Sodium Chloride (Sodium Phosphate Inj/NS 250 ml Inj) 250 ml @ 42 mls/hr UNSCH PRN IV For Phosphorus < 2.5 mg/dL 06/12/16 07:15 Potassium Chloride (KCl 40 Meq/30 ml Liq) 40 meq UNSCH PRN PO/TUBE SEE LABEL COMMENTS 06/12/16 07:15 Potassium Phosphate 2000 mg 2,000 mg UNSCH PRN PO/TUBE SEE LABEL COMMENTS 06/12/16 07:15 Potassium Phosphate 30 mmol/ Sodium Chloride 260 ml @ 42 mls/hr UNSCH PRN IV SEE LABEL COMMENTS 06/12/16 07:15 Vancomycin HCl/ Sodium Chloride (Vancomycin Inj/ NS 250 ml Inj) 262.5 ml @ 250 mls/hr Q12H IV 06/12/16 12:00 Miscellaneous Information SPECIFIC LAB TO BE DRAWN:VANCOMYCIN TROUGH DATE TO... ONCE ONCE XX 06/14/16 11:45 06/14/16 11:46 (Anusha Hastings) Medical Decision Making MDM Remarks THIS NOTE IS FOR 06/11/16 WHEN PATIENT WAS SEEN AND EXAMINED DURING MORNING ROUNDS 55 y/o male s/p posterior fossa craniectomy for evacuation of cerebellar bleed due to AVM with embolization at [facility] s/p ventriculostomy placement for CSF leak possible ventriculitis (Anusha Hastings) Plan Plan Remarks THIS NOTE IS FOR 06/11/16 WHEN PATIENT WAS SEEN AND EXAMINED DURING MORNING ROUNDS f/u CSF cultures, may need new EVD ID on case THIS NOTE IS FOR 06/11/16 WHEN PATIENT WAS SEEN AND EXAMINED DURING MORNING ROUNDS (Anusha Hastings) Attending Statement The exam, history, and the medical decision-making described in the above note were completed with the assistance of the mid-level provider. I reviewed and agree with the findings presented. I attest that I had a [id number] encounter with the patient on the same day, and personally performed and documented my assessment and findings in the medical record. (John Flowers MD) Anusha Hastings Jun 12, 2016 09:42 John Flowers MD Jun 15, 2016 20:56
--- NOTE | 2016-06-12 09:46 | HHI.NSPN ---
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 The patient underwent placement of right frontal external ventricular drain for acute hydrocephalus and was transferred to [facility] for further treatment of the AVM by embolization followed by suboccipital craniotomy for hematoma evacuation, and AVM resection at [facility] . Postoperatively, he was slow to wake up, his EVD was Clamped and removed at [facility] and his mental status was improving. He had UTI and agitation. He was started on Rocephin and Seroquel. The patient was being transferred back to [facility] due to confusion and CSF leak. 06/04: s/p placement of ventriculostomy drain. no further leaking noted from posterior fossa wound, there has been scab formation also. 06/05: no wound leak seen 06/06: appears more awake today, wound dry, no evidence of CSF leaking overnight 06/09: wound dry, sitting up in chair eating breakfast 06/10: follow up CT Brain reviewed 06/11: prelim CSF testing shows elevated WBCs, proteins with low glucose, 06/12: CSF showing fungal growth, intraventricular ampho b ordered (Anusha Hastings) Labs, Micro, & Vital Signs Results Date Time Temp Pulse Resp B/P Pulse Ox O2 Delivery O2 Flow Rate FiO2 06/12/16 07:25 97 21 06/12/16 07:00 96 Room Air 06/12/16 06:00 78 06/12/16 04:00 98.5 98 15 106/59 97 06/12/16 04:00 98 06/12/16 02:00 104 06/12/16 00:00 98.3 100 13 120/70 99 06/12/16 00:00 100 06/11/16 22:00 80 06/11/16 20:00 98.6 92 17 115/79 100 06/11/16 20:00 92 06/11/16 19:27 99 21 06/11/16 19:00 98 Room Air 06/11/16 18:00 82 06/11/16 17:12 13 06/11/16 16:00 99.7 129 28 169/63 96 06/11/16 16:00 129 06/11/16 12:00 99.6 110 21 110/73 97 06/11/16 12:00 110 06/11/16 10:47 96 21 06/11/16 10:25 14 06/11/16 10:00 110 06/12/16 07:00 Intake Total 2400 ml Output Total 131 ml Balance 2269 ml Constitutional Vital Signs Date Time Temp Pulse Resp B/P Pulse Ox O2 Delivery O2 Flow Rate FiO2 06/12/16 07:25 97 21 06/12/16 07:00 96 Room Air 06/12/16 06:00 78 06/12/16 04:00 98.5 98 15 106/59 97 06/12/16 04:00 98 06/12/16 02:00 104 06/12/16 00:00 98.3 100 13 120/70 99 06/12/16 00:00 100 06/11/16 22:00 80 06/11/16 20:00 98.6 92 17 115/79 100 06/11/16 20:00 92 06/11/16 19:27 99 21 06/11/16 19:00 98 Room Air 06/11/16 18:00 82 06/11/16 17:12 13 06/11/16 16:00 99.7 129 28 169/63 96 06/11/16 16:00 129 06/11/16 12:00 99.6 110 21 110/73 97 06/11/16 12:00 110 06/11/16 10:47 96 21 06/11/16 10:25 14 06/11/16 10:00 110 06/12/16 07:00 Intake Total 2400 ml Output Total 131 ml Balance 2269 ml (Anusha Hastings) Review of Systems/Exam Exam He is alert, oriented to self only, confused. Follows few simple commands. Suboccipital wound dry. Ventriculostomy drain in place, open at 0 cm H20. Cranial nerve examination: pupils 3 mm b/l, facial appears symmetric at rest Motor: moves all four extremities to command, cannot assess detail exam due to clinical condition (Anusha Hastings) Medications Current Medications Current Medications Medications (Trade) Dose Ordered Sig/Paula Route PRN Reason Start Time Stop Time Status Last Admin Dose Admin Naloxone HCl (Narcan Inj) 0.4 mg UNSCH PRN IV SEE LABEL COMMENTS 05/29/16 15:00 Acetaminophen/ Butalbital/ Caffeine (Fioricet 325-50-40) 1 tab Q6H PRN PO PAIN GREATER THAN 5 or headach 05/29/16 15:00 06/12/16 03:24 Heparin Sodium (Porcine) (Heparin Inj) 5,000 units Q12HR SQ 05/29/16 21:00 06/12/16 08:35 Levetriacetam (Keppra) 500 mg Q12HR PO 05/29/16 21:00 06/12/16 08:37 Morphine Sulfate (Morphine Inj) 2 mg Q3H PRN IV PUSH BREAKTHROUGH PAIN 06/02/16 10:30 06/12/16 03:49 Diphenhydramine HCl (Benadryl 2% Cream) 1 applic TID PRN TOPICAL ITCHING 06/02/16 11:15 IV Flush (NS Flush) 2 ml UNSCH PRN IV FLUSH FLUSH AFTER USING IV ACCESS 06/03/16 09:45 IV Flush (NS Flush) 2 ml BID IV FLUSH 06/03/16 21:00 06/12/16 08:33 Acetaminophen (Tylenol) 650 mg Q6H PRN PO FEVER >100F 06/03/16 09:45 06/11/16 16:12 Ondansetron HCl (Zofran Inj) 4 mg Q6H PRN IV NAUSEA OR VOMITING 06/03/16 09:45 Docusate Sodium (Colace) 100 mg BID PO 06/03/16 21:00 Hold 06/05/16 20:35 Sennosides (Senokot) 17.2 mg Q12H PRN PO CONSTIPATION 06/03/16 09:45 Hold Miscellaneous Information 1 Q361D XX 06/03/16 09:45 Chlorhexidine Gluconate (Chlorhexidine 2% Cloth) Taper DAILY@04 TOP 06/04/16 04:00 05/31/17 03:59 06/11/16 03:49 Chlorhexidine Gluconate 3 pack 3 pack UNSCH PRN TOP HYGIENIC CARE 06/03/16 09:45 Thiamine HCl/ Sodium Chloride (Thiamine Inj/NS Inj) 101 ml @ 101 mls/hr DAILY IV 06/04/16 09:00 06/12/16 08:34 Polyethylene Glycol 17 gm 17 gm DAILY PO 06/04/16 09:00 Hold Sodium Chloride (NS 1000 ml Inj) 1,000 ml @ 100 mls/hr Q10H IV 06/03/16 21:16 Hold 06/05/16 22:23 Water (Free Water) VOLUME: 100 ML Q6HR G-TUBE 06/04/16 12:00 06/12/16 06:00 Famotidine (Pepcid) 20 mg BID NG 06/04/16 09:00 06/12/16 08:37 Metoprolol Tartrate (Lopressor) 12.5 mg Q12HR PO 06/05/16 21:00 06/11/16 20:45 Quetiapine Fumarate (SEROquel) 25 mg BID PO 06/06/16 09:00 06/12/16 08:37 Loperamide HCl 2 mg 2 mg UNSCH PRN TUBE DIARRHEA 06/06/16 16:15 06/07/16 21:24 Pharmacy Profile Note (Vancomycin Consult Pharmacy) 0 ml @ 0 mls/hr UNSCH OTHER 06/10/16 10:15 Amphotericin B (Amphotericin B Conv Inj) 1 mg Q24H OTHER 06/11/16 18:00 Diphenhydramine HCl (Benadryl Inj) 25 mg Q24H PRN IV PRE-MED PRIOR TO AMPHOTERCIN B 06/11/16 17:00 06/11/16 18:10 Hydrocortisone Sodium Succinate 25 mg 25 mg Q24H PRN IV PRE-MED PRIOR TO AMPHOTERCIN B 06/11/16 17:00 06/11/16 18:09 Amphotericin B Liposome 280 mg/ Dextrose 280 ml @ 125 mls/hr Q24H IV 06/12/16 15:00 Potassium Chloride 100 ml @ 50 mls/hr Q2H PRN IV For Potassium 2.8 - 3.2 mEq/L 06/12/16 07:15 Potassium Chloride (KCl 20 Meq Premix Inj) 100 ml @ 50 mls/hr Q2H PRN IV For Potassium 2.8 - 3.2 mEq/L 06/12/16 07:15 Potassium Chloride 40 meq 40 meq UNSCH PRN PO/TUBE For Potassium 3.3 - 3.5 mEq/L 06/12/16 07:15 Potassium Chloride 100 ml @ 25 mls/hr UNSCH PRN IV For Potassium 3.3 - 3.5 mEq/L 06/12/16 07:15 Potassium Chloride 100 ml @ 50 mls/hr Q2H PRN IV For Potassium 3.3 - 3.5 mEq/L 06/12/16 07:15 Magnesium Sulfate/ Sodium Chloride (Magnesium Sulfate Inj/NS Inj) 100 ml @ 50 mls/hr UNSCH PRN IV For Magnesium 0.9 - 1.1 mg/dL 06/12/16 07:15 Magnesium Oxide 800 mg 800 mg UNSCH PRN PO For Magnesium 1.2 - 1.6 mg/dL 06/12/16 07:15 Magnesium Sulfate/ Sodium Chloride (Magnesium Sulfate Inj/NS Inj) 100 ml @ 50 mls/hr UNSCH PRN IV For Magnesium 1.2 - 1.6 mg/dL 06/12/16 07:15 Potassium Phosphate 2000 mg 2,000 mg Q4H PRN PO For Phosphorus < 2.5 mg/dL 06/12/16 07:15 Sodium Phosphate/ Sodium Chloride (Sodium Phosphate Inj/NS 250 ml Inj) 250 ml @ 42 mls/hr UNSCH PRN IV For Phosphorus < 2.5 mg/dL 06/12/16 07:15 Potassium Chloride (KCl 40 Meq/30 ml Liq) 40 meq UNSCH PRN PO/TUBE SEE LABEL COMMENTS 06/12/16 07:15 Potassium Phosphate 2000 mg 2,000 mg UNSCH PRN PO/TUBE SEE LABEL COMMENTS 06/12/16 07:15 Potassium Phosphate 30 mmol/ Sodium Chloride 260 ml @ 42 mls/hr UNSCH PRN IV SEE LABEL COMMENTS 06/12/16 07:15 Vancomycin HCl/ Sodium Chloride (Vancomycin Inj/ NS 250 ml Inj) 262.5 ml @ 250 mls/hr Q12H IV 06/12/16 12:00 Miscellaneous Information SPECIFIC LAB TO BE DRAWN:VANCOMYCIN TROUGH DATE TO... ONCE ONCE XX 06/14/16 11:45 06/14/16 11:46 (Anusha Hastings) Medical Decision Making MDM Remarks 55 y/o male s/p posterior fossa craniectomy for evacuation of cerebellar bleed due to AVM with embolization at [facility] s/p ventriculostomy placement for CSF leak ventriculitis with growth of Hermila (Anusha Hastings) Plan Plan Remarks replace ventriculostomy drain and start daily intraventricular amphotericin keep EVD draining at 0 cm H20 Dose 1 Intraventricular Ampho B given today (Anusha Hastings) Attending Statement The exam, history, and the medical decision-making described in the above note were completed with the assistance of the mid-level provider. I reviewed and agree with the findings presented. I attest that I had a [id number] encounter with the patient on the same day, and personally performed and documented my assessment and findings in the medical record. (John Flowers MD) Anusha Hastings Jun 12, 2016 09:46 John Flowers MD Jun 15, 2016 20:57
[2016-06-12] MEDS: diphenhydrAMINE HCL 50 MG/ML VIAL IV PRN ×2 (10:00→15:47)
[2016-06-12] MEDS: AMPHOTERICIN B 50 MG OTHER SCH (11:00)
--- NOTE | 2016-06-12 11:00 | PD.OP ---
Operative Report Date of Surgery: Jun 12, 2016 Preoperative Diagnosis: Ventriculitis, status post craniectomy at [facility] Postoperative Diagnosis: Ventriculitis, status post craniectomy at [facility] Procedure: Right frontal sima hole, placement of ventriculostomy Surgeon: John Flowers Chemistry Department Chair(s): RAMSES Operation and Findings: INDICATIONS FOR THE PROCEDURE Mr Badillo is a 55 year old male who had a posterior fossa craniectomy for an AVM at [facility], He developed a postoperative CSF leak and subsequently ventriculitis Placement of ventriculostomy was indicated as recommended by the Trauma Committee of [employer] The [id number] details of the procedure, indications, alternatives, risks and potential complications were fully discussed with the patient's stepbrother. The patient patient's stepbrother fully understood. All his questions were answered. No guarantees were given. The patient voiced requesting the procedure and provided informed consents. He was offered the alternative of delaying the procedure and continuing with nonsurgical management. DETAILS OF THE SURGICAL PROCEDURE The right frontal area was shaved, prepped and draped in the usual sterile fashion. An entry point was selected 90 millimeters posterior to the supraorbital rim and 25 millimeters from the midline. The area was infiltrated with 1% lidocaine with epinephrine. A skin incision was made with a #15 blade down to the level of the periosteum. Using a twist drill, a sima hole was made. The dura was carefully opened with a brain needle and a ventriculostomy catheter was advanced into the ventricular system. At a depth of 60 millimeters, cerebrospinal fluid was obtained. Opening pressure was 5 centimeters of water. A specimen of cerebrospinal fluid was collected and sent to the lab for analysis of the glucose, protein, cell count and cultures. The catheter was then tunneled under the galea and externalized through a separate stab incision. The incision was closed with 3-0 nylon in a single plane. The patient tolerated the procedure well. COMPLICATIONS There were no intraoperative complications. BLOOD LOSS Blood loss was minimal. John Flowers MD Jun 12, 2016 11:00
[2016-06-12] MEDS: VANCOMYCIN INJ 1,250 MG in SODIUM CHLOR 0.9% 250 ML INJ 250 ML IV SCH (12:16)
[2016-06-12 12:42] LABS: GROSS BLOOD TUBE #1 4+ (0); SUPERNATE COLOR TUBE #1 SLIGHTLY XANTHOCHROM (CLEAR); WBC TUBE #1 960 /MM3 (0-10)
[2016-06-12 12:43] LABS: CSF LYMPHOCYTES 13 %; CSF MONOCYTES 3 %; CSF NEUTROPHILS 82 %
--- NOTE | 2016-06-12 14:14 | HHI.IDPN ---
Subjective Subjective Remarks is a 55 y/o CM with AVM s/p coiling. ID following for Hermila ventriculitis and E.faecalis bacteremia. Overnight events reviewed. No fever No rash No diarrhea RN reports no further infusion reaction last night after premedication. Antibiotics Vanco IV Ampho Intra Venous Ampho Intra Ventricular. Lines Line sites with no e/o infection Past Medical History AVM s/p coil Allergies: Coded Allergies: Oxycodone (Unverified Allergy, Intermediate, ITCHY, 01/16/16) Objective . Vital Signs Date Time Temp Pulse Resp B/P Pulse Ox O2 Delivery O2 Flow Rate FiO2 06/12/16 10:30 100 3.00 06/12/16 07:25 97 21 06/12/16 07:00 96 Room Air 06/12/16 06:00 78 06/12/16 04:00 98.5 98 15 106/59 97 06/12/16 04:00 98 06/12/16 02:00 104 06/12/16 00:00 98.3 100 13 120/70 99 06/12/16 00:00 100 06/11/16 22:00 80 06/11/16 20:00 98.6 92 17 115/79 100 06/11/16 20:00 92 06/11/16 19:27 99 21 06/11/16 19:00 98 Room Air 06/11/16 18:00 82 06/11/16 17:12 13 06/11/16 16:00 99.7 129 28 169/63 96 06/11/16 16:00 129 06/11/16 06/11/16 06/12/16 15:00 23:00 07:00 Intake Total 806 ml 821 ml 773 ml Output Total 90 ml 19 ml 22 ml Balance 716 ml 802 ml 751 ml IV Total 225 ml 346 ml 303 ml Tube Feeding 481 ml 375 ml 370 ml Tube Irrigant 100 ml 100 ml Other 100 ml Drainage Total 90 ml 19 ml 22 ml # Voids 2 3 # Bowel Movements 0 0 1 . Laboratory Tests Test 06/11/16 06/12/16 03:07 04:00 White Blood Count 9.6 TH/MM3 9.9 TH/MM3 Red Blood Count 3.90 MIL/MM3 3.70 MIL/MM3 Hemoglobin 11.7 GM/DL 11.2 GM/DL Hematocrit 35.4 % 33.3 % Mean Corpuscular Volume 90.9 FL 89.9 FL Mean Corpuscular Hemoglobin 30.0 PG 30.1 PG Mean Corpuscular Hemoglobin 32.9 % 33.6 % Concent Red Cell Distribution Width 14.3 % 14.0 % Platelet Count 271 TH/MM3 313 TH/MM3 Mean Platelet Volume 8.8 FL 8.3 FL Neutrophils (%) (Auto) 72.4 % 80.1 % Lymphocytes (%) (Auto) 16.3 % 9.7 % Monocytes (%) (Auto) 9.3 % 8.3 % Eosinophils (%) (Auto) 1.6 % 1.3 % Basophils (%) (Auto) 0.4 % 0.6 % Neutrophils # (Auto) 7.0 TH/MM3 7.9 TH/MM3 Lymphocytes # (Auto) 1.6 TH/MM3 1.0 TH/MM3 Monocytes # (Auto) 0.9 TH/MM3 0.8 TH/MM3 Eosinophils # (Auto) 0.1 TH/MM3 0.1 TH/MM3 Basophils # (Auto) 0.0 TH/MM3 0.1 TH/MM3 CBC Comment DIFF FINAL DIFF FINAL Differential Comment Laboratory Tests Test 06/11/16 06/12/16 03:07 04:00 Sodium Level 142 MEQ/L 140 MEQ/L Potassium Level 4.4 MEQ/L 4.0 MEQ/L Chloride Level 105 MEQ/L 102 MEQ/L Carbon Dioxide Level 31.8 MEQ/L 30.4 MEQ/L Anion Gap 5 MEQ/L 8 MEQ/L Blood Urea Nitrogen 11 MG/DL 12 MG/DL Creatinine 0.47 MG/DL 0.44 MG/DL Estimat Glomerular Filtration 186 ML/MIN 201 ML/MIN Rate Random Glucose 100 MG/DL 112 MG/DL Calcium Level 8.8 MG/DL 8.8 MG/DL Prealbumin 18 MG/DL Total Bilirubin 0.2 MG/DL Aspartate Amino Transf 27 U/L (AST/SGOT) Alanine Aminotransferase 73 U/L (ALT/SGPT) Alkaline Phosphatase 99 U/L Total Protein 6.9 GM/DL Albumin 2.5 GM/DL Microbiology Date/Time Procedure Status Source Growth 06/10/16 16:50 Gram Stain - Final Resulted Cerebral Spinal Fluid Shunt Fluid 06/10/16 16:50 CSF Culture - Preliminary Resulted Hermila Albicans 06/10/16 16:50 Received Other Pending 06/11/16 04:53 Aerobic Blood Culture - Preliminary Resulted Blood Peripheral NO GROWTH IN 1 DAY 06/11/16 04:53 Anaerobic Blood Culture - Preliminary Resulted Blood Peripheral NO GROWTH IN 1 DAY 06/11/16 05:05 Aerobic Blood Culture - Preliminary Resulted Blood Peripheral NO GROWTH IN 1 DAY 06/11/16 05:05 Anaerobic Blood Culture - Preliminary Resulted Blood Peripheral NO GROWTH IN 1 DAY 06/11/16 05:05 Blood Fungal Culture Resulted Blood Peripheral Pending 06/11/16 05:05 Blood Fungal Culture Resulted Blood Peripheral Pending 06/12/16 11:00 Gram Stain - Final Resulted Cerebral Spinal Fluid Shunt Fluid 06/12/16 11:00 CSF Culture Resulted Cerebral Spinal Fluid Shunt Fluid Pending Imaging Last Impressions Head CT 06/10/16 0600 Signed Impressions: Service Date/Time: Friday, June 10, 2016 05:01 - CONCLUSION: 1. 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 Locules of air within the fluid are decreasing since June 08. Right frontal ventriculostomy tube remains present with stable ventricular size. No hydrocephalus. Kirk Cortes MD Physical Exam GENERAL: Thin built, well-developed patient, in no apparent distress. SKIN: No rashes. Cool and dry. HEAD: Surgical site with no e/o infection. Ventric site with no gross e/o infection. EYES: Pupils equal round and reactive. Extraocular motions intact. ENT: Nose without bleeding, purulent drainage or septal hematoma. Throat without erythema, tonsillar hypertrophy or exudate. Uvula midline. Airway patent. NECK: Trachea midline.Supple, nontender, neck not very supple. Some stiffness towards end on flexion. ? patient reliability. CARDIOVASCULAR: Regular rate and rhythm. No murmur appreciated. RESPIRATORY: Clear to auscultation. Breath sounds equal bilaterally. No wheezes , rales, or rhonchi. GASTROINTESTINAL: Abdomen soft, non-tender, nondistended. MUSCULOSKELETAL: Extremities without clubbing, cyanosis, or edema. No joint tenderness, effusion, or edema noted. Brudzinksi skin could not be interpreted accurately as patients answers were inconsistent. NEUROLOGICAL: Awake and alert. Responds to questions not appropriate all the times. Moves all 4 extremities. Psych: cooperative IV line sites with no e/o infection. Assessment & Plan Remarks Hermila albicans ventriculitis. MRI cannot be performed due to coils. CSF fluid was very cloudy and had fungal sediments. Patient candidate for [employer] shunt in near future. E.faecalis bacteremia: No central lines or PIVs. SIRS/Sepsis now controlled since Vanco IV started. AVM was transferred to [facility] for further treatment of the AVM by embolization followed by suboccipital craniotomy for hematoma evacuation and AVM resection. CSF leak and hydrocephalus s/p Rt sima hole and Ventriculostomy catheter placement 06/03/2016. Recs: Intra Venous amphotericin Liposomal. Follow K,Mg, Phos, Cr daily while patient on Amphotericin Liposomal IV Intra Ventricular Amphotericin (d/w pharmacist IDSA recs for composition). To be instilled by or associates. MRI brain cannot be performed to look for ventriculitis or e/o fungal balls at base on skull foramina. Will follow clinically for ventriculitis, cranial nerve involvement and hydrocephalus. Continue IV Vanco target trough 15-20 Follow cultures Follow clinically Patient recd 1st dose of Ventric dose of Ampho. RN reports patient complaining of headache. Will follow clinically. If any seizures during instillation in Ventric please notify me and stop instillation. The length of the Hermila Ventriculitis treatment will be dependent on subsequent CSF fluid analysis and cultures obtained at 21 days of treatment with above regimen of Ampho Intravenous as well as through ventriculostomy catheter. Will d/w Radiology about type of AVM coil and MRI compatibility. Hermila albicans sent to [facility] for susceptibility. Continue Benadryl IV and Hydrocortisone IV as premedication for Amphotericin IV. Jenifer Babin MD Jun 12, 2016 14:14
[2016-06-12] MEDS: HYDROCORTISONE SOD SUCCINATE 100 MG VIAL IV PRN (15:48)
[2016-06-12] MEDS: AMPHOTERICIN B LIPOSOME IV SCH ×2 (16:13)
[2016-06-12] MEDS: DEXTROSE 5% IV SCH ×2 (16:13)
[2016-06-12] MEDS: WATER IV SCH ×2 (16:13)
[2016-06-12] MEDS: ACETAMINOPHEN 325 MG TAB PO PRN (21:20)
[2016-06-13] VITALS (14 sets, daily range): BP systolic 90–122; BP diastolic 51–68; PULSE 79–106; RESP 13–24; TEMP 98.4–100.1; O2SAT 96–100
[2016-06-13] MEDS: MORPHINE SULFATE 4 MG/ML INJ IV PUSH PRN ×2 (02:12→10:05)
[2016-06-13] MEDS: VANCOMYCIN INJ 1,250 MG in SODIUM CHLOR 0.9% 250 ML INJ 250 ML IV SCH ×2 (02:12→12:40)
[2016-06-13] MEDS: CHLORHEXIDINE GLUCONATE 2 % 1 PACK (2 CLOTHS) TOP SCH (04:00)
[2016-06-13 04:56] LABS: AUTOMATED NEUTROPHIL # 8.6 TH/MM3 (1.8-7.7); BASOPHIL # 0.1 TH/MM3 (0-0.2); BASOPHIL % 0.7 % (0.0-2.0); EOSINOPHIL # 0.1 TH/MM3 (0-0.4); EOSINOPHIL % 0.7 % (0.0-4.0); HEMATOCRIT 31.2 % (39.0-51.0); HEMO FLAGS DIFF FINAL; LYMPH % 11.3 % (9.0-44.0); LYMPHOCYTE # 1.2 TH/MM3 (1.0-4.8); MEAN CELL VOLUME 90.4 FL (80.0-100.0); MEAN CORPUSCULAR HEMOGLOBIN 31.2 PG (27.0-34.0); MEAN CORPUSCULAR HGB CONC 34.5 % (32.0-36.0); NEUT % 79.3 % (16.0-70.0); PLATELET COUNT 319 TH/MM3 (150-450); RED BLOOD COUNT 3.45 MIL/MM3 (4.50-5.90); RED CELL DISTRIBUTION WIDTH 13.7 % (11.6-17.2); WHITE BLOOD COUNT 10.8 TH/MM3 (4.0-11.0)
[2016-06-13 05:20] LABS: BICARBONATE 30.8 MEQ/L (21.0-32.0); MAGNESIUM 2.4 MG/DL (1.5-2.5); POTASSIUM 3.7 MEQ/L (3.5-5.1)
[2016-06-13] MEDS: FREE WATER G-TUBE SCH ×4 (06:00→18:00)
[2016-06-13] MEDS: SODIUM CHLORIDE 0.9% FLUSH 5 ML FLUSH IV FLUSH SCH ×2 (08:09→21:31)
[2016-06-13] MEDS: levETIRAcetam 500 MG TAB PO SCH ×2 (08:09→21:31)
[2016-06-13] MEDS: QUEtiapine FUMARATE 25 MG TAB PO SCH ×2 (08:09→21:31)
[2016-06-13] MEDS: METOPROLOL TARTRATE 25 MG TAB PO SCH ×2 (08:09→21:31)
[2016-06-13] MEDS: HEPARIN SODIUM - SQ 10,000 UNITS/ML VIAL SQ SCH ×2 (08:09→21:30)
[2016-06-13] MEDS: FAMOTIDINE 20 MG TAB NG SCH ×2 (08:09→21:31)
[2016-06-13] MEDS: diphenhydrAMINE HCL 50 MG/ML VIAL IV PRN (08:28)
[2016-06-13] MEDS: HYDROCORTISONE SOD SUCCINATE 100 MG VIAL IV PRN (08:29)
[2016-06-13] MEDS: ACETAMINOPHEN 325 MG TAB PO PRN (08:30)
[2016-06-13] MEDS: THIAMINE INJ 100 MG in SODIUM CHLORIDE 0.9% INJ 100 ML IV SCH (08:35)
[2016-06-13] MEDS: AMPHOTERICIN B 50 MG OTHER SCH (08:41)
--- NOTE | 2016-06-13 09:52 | HHI.NSPN ---
(Anusha Hastings) Note Status Status: Progress Note (Anusha Hastings) Interval History Interval History Mr Badillo is a 55-year-old male initially admitted to [facility] on 05/03/2016 after he was found down, intubated in the field and was found to have an intracranial hemorrhage from a ruptured AVM. The patient underwent placement of right frontal external ventricular drain for acute hydrocephalus and was transferred to [facility] for further treatment of the AVM by embolization followed by suboccipital craniotomy for hematoma evacuation, and AVM resection at [facility] . Postoperatively, he was slow to wake up, his EVD was Clamped and removed at [facility] and his mental status was improving. He had UTI and agitation. He was started on Rocephin and Seroquel. The patient was being transferred back to [facility] due to confusion and CSF leak. 06/04: s/p placement of ventriculostomy drain. no further leaking noted from posterior fossa wound, there has been scab formation also. 06/05: no wound leak seen 06/06: appears more awake today, wound dry, no evidence of CSF leaking overnight 06/09: wound dry, sitting up in chair eating breakfast 06/10: follow up CT Brain reviewed 06/11: prelim CSF testing shows elevated WBCs, proteins with low glucose, 06/12: CSF showing fungal growth, intraventricular ampho b ordered 06/13: EVD draining, no significant changes to neuro checks overnight (Anusha Hastings) Labs, Micro, & Vital Signs Results Date Time Temp Pulse Resp B/P Pulse Ox O2 Delivery O2 Flow Rate FiO2 06/13/16 08:00 106 06/13/16 08:00 100.1 106 24 122/68 100 06/13/16 07:16 96 21 06/13/16 07:00 99 Room Air 06/13/16 06:00 103 06/13/16 04:00 79 06/13/16 04:00 98.8 79 13 90/55 98 06/13/16 02:00 88 06/13/16 00:00 86 06/13/16 00:00 98.7 86 18 93/51 99 06/12/16 22:00 91 06/12/16 20:00 117 06/12/16 20:00 103.0 114 14 124/68 96 06/12/16 19:40 94 06/12/16 19:00 97 Room Air 06/12/16 18:00 112 06/12/16 16:00 99.7 114 24 132/77 97 06/12/16 16:00 114 06/12/16 14:00 104 06/12/16 13:45 95 Room Air 06/12/16 12:00 98.1 111 27 143/83 100 06/12/16 12:00 111 06/12/16 10:30 100 3.00 06/12/16 10:00 100 Nasal Cannula 3.00 06/12/16 10:00 98 06/13/16 07:00 Intake Total 2422 ml Output Total 1053 ml Balance 1369 ml Constitutional Vital Signs Date Time Temp Pulse Resp B/P Pulse Ox O2 Delivery O2 Flow Rate FiO2 06/13/16 08:00 106 06/13/16 08:00 100.1 106 24 122/68 100 06/13/16 07:16 96 21 06/13/16 07:00 99 Room Air 06/13/16 06:00 103 06/13/16 04:00 79 06/13/16 04:00 98.8 79 13 90/55 98 06/13/16 02:00 88 06/13/16 00:00 86 06/13/16 00:00 98.7 86 18 93/51 99 06/12/16 22:00 91 06/12/16 20:00 117 06/12/16 20:00 103.0 114 14 124/68 96 06/12/16 19:40 94 06/12/16 19:00 97 Room Air 06/12/16 18:00 112 06/12/16 16:00 99.7 114 24 132/77 97 06/12/16 16:00 114 06/12/16 14:00 104 06/12/16 13:45 95 Room Air 06/12/16 12:00 98.1 111 27 143/83 100 06/12/16 12:00 111 06/12/16 10:30 100 3.00 06/12/16 10:00 100 Nasal Cannula 3.00 06/12/16 10:00 98 06/13/16 07:00 Intake Total 2422 ml Output Total 1053 ml Balance 1369 ml (Anusha Hastings) Review of Systems/Exam Exam He is awake, confused oriented to self only. Follows simple commands intermittently. Suboccipital wound dry. Ventriculostomy drain in place, open at 0 cm H20. CSF is cloudy Cranial nerve examination: pupils 3 mm b/l, facial appears symmetric at rest Motor: moves all four extremities on bilateral soft UE restraints, cannot assess detail exam due to clinical condition Plantar downgoing b/l (Anusha Hastings) Medications Current Medications Current Medications Medications (Trade) Dose Ordered Sig/Paula Route PRN Reason Start Time Stop Time Status Last Admin Dose Admin Naloxone HCl (Narcan Inj) 0.4 mg UNSCH PRN IV SEE LABEL COMMENTS 05/29/16 15:00 Acetaminophen/ Butalbital/ Caffeine (Fioricet 325-50-40) 1 tab Q6H PRN PO PAIN GREATER THAN 5 or headach 05/29/16 15:00 06/12/16 21:08 Heparin Sodium (Porcine) (Heparin Inj) 5,000 units Q12HR SQ 05/29/16 21:00 06/13/16 08:09 Levetriacetam (Keppra) 500 mg Q12HR PO 05/29/16 21:00 06/13/16 08:09 Morphine Sulfate (Morphine Inj) 2 mg Q3H PRN IV PUSH BREAKTHROUGH PAIN 06/02/16 10:30 06/13/16 02:12 Diphenhydramine HCl (Benadryl 2% Cream) 1 applic TID PRN TOPICAL ITCHING 06/02/16 11:15 IV Flush (NS Flush) 2 ml UNSCH PRN IV FLUSH FLUSH AFTER USING IV ACCESS 06/03/16 09:45 IV Flush (NS Flush) 2 ml BID IV FLUSH 06/03/16 21:00 06/13/16 08:09 Acetaminophen (Tylenol) 650 mg Q6H PRN PO FEVER >100F 06/03/16 09:45 06/13/16 08:30 Ondansetron HCl (Zofran Inj) 4 mg Q6H PRN IV NAUSEA OR VOMITING 11/29/16 09:45 Docusate Sodium (Colace) 100 mg BID PO 06/03/16 21:00 Hold 06/05/16 20:35 Sennosides (Senokot) 17.2 mg Q12H PRN PO CONSTIPATION 06/03/16 09:45 Hold Miscellaneous Information 1 Q361D XX 06/03/16 09:45 Chlorhexidine Gluconate (Chlorhexidine 2% Cloth) Taper DAILY@04 TOP 06/04/16 04:00 05/31/17 03:59 06/13/16 04:00 Chlorhexidine Gluconate 3 pack 3 pack UNSCH PRN TOP HYGIENIC CARE 06/03/16 09:45 Thiamine HCl/ Sodium Chloride (Thiamine Inj/NS Inj) 101 ml @ 101 mls/hr DAILY IV 06/04/16 09:00 06/13/16 08:35 Polyethylene Glycol 17 gm 17 gm DAILY PO 06/04/16 09:00 Hold Sodium Chloride (NS 1000 ml Inj) 1,000 ml @ 100 mls/hr Q10H IV 06/03/16 21:16 Hold 06/05/16 22:23 Water (Free Water) VOLUME: 100 ML Q6HR G-TUBE 06/04/16 12:00 06/13/16 06:00 Famotidine (Pepcid) 20 mg BID NG 06/04/16 09:00 06/13/16 08:09 Metoprolol Tartrate (Lopressor) 12.5 mg Q12HR PO 06/05/16 21:00 06/13/16 08:09 Quetiapine Fumarate (SEROquel) 25 mg BID PO 06/06/16 09:00 06/13/16 08:09 Loperamide HCl 2 mg 2 mg UNSCH PRN TUBE DIARRHEA 06/06/16 16:15 06/07/16 21:24 Pharmacy Profile Note (Vancomycin Consult Pharmacy) 0 ml @ 0 mls/hr UNSCH OTHER 06/10/16 10:15 Diphenhydramine HCl (Benadryl Inj) 25 mg Q24H PRN IV PRE-MED PRIOR TO AMPHOTERCIN B 06/11/16 17:00 06/13/16 08:28 Hydrocortisone Sodium Succinate 25 mg 25 mg Q24H PRN IV PRE-MED PRIOR TO AMPHOTERCIN B 06/11/16 17:00 06/13/16 08:29 Amphotericin B Liposome 280 mg/ Dextrose 280 ml @ 125 mls/hr Q24H IV 06/12/16 15:00 06/12/16 16:13 Potassium Chloride 100 ml @ 50 mls/hr Q2H PRN IV For Potassium 2.8 - 3.2 mEq/L 06/12/16 07:15 Potassium Chloride (KCl 20 Meq Premix Inj) 100 ml @ 50 mls/hr Q2H PRN IV For Potassium 2.8 - 3.2 mEq/L 06/12/16 07:15 Potassium Chloride 40 meq 40 meq UNSCH PRN PO/TUBE For Potassium 3.3 - 3.5 mEq/L 06/12/16 07:15 Potassium Chloride 100 ml @ 25 mls/hr UNSCH PRN IV For Potassium 3.3 - 3.5 mEq/L 06/12/16 07:15 Potassium Chloride 100 ml @ 50 mls/hr Q2H PRN IV For Potassium 3.3 - 3.5 mEq/L 06/12/16 07:15 Magnesium Sulfate/ Sodium Chloride (Magnesium Sulfate Inj/NS Inj) 100 ml @ 50 mls/hr UNSCH PRN IV For Magnesium 0.9 - 1.1 mg/dL 06/12/16 07:15 Magnesium Oxide 800 mg 800 mg UNSCH PRN PO For Magnesium 1.2 - 1.6 mg/dL 06/12/16 07:15 Magnesium Sulfate/ Sodium Chloride (Magnesium Sulfate Inj/NS Inj) 100 ml @ 50 mls/hr UNSCH PRN IV For Magnesium 1.2 - 1.6 mg/dL 06/12/16 07:15 Potassium Phosphate 2000 mg 2,000 mg Q4H PRN PO For Phosphorus < 2.5 mg/dL 06/12/16 07:15 Sodium Phosphate/ Sodium Chloride (Sodium Phosphate Inj/NS 250 ml Inj) 250 ml @ 42 mls/hr UNSCH PRN IV For Phosphorus < 2.5 mg/dL 06/12/16 07:15 Potassium Chloride (KCl 40 Meq/30 ml Liq) 40 meq UNSCH PRN PO/TUBE SEE LABEL COMMENTS 06/12/16 07:15 Potassium Phosphate 2000 mg 2,000 mg UNSCH PRN PO/TUBE SEE LABEL COMMENTS 06/12/16 07:15 Potassium Phosphate 30 mmol/ Sodium Chloride 260 ml @ 42 mls/hr UNSCH PRN IV SEE LABEL COMMENTS 06/12/16 07:15 Vancomycin HCl/ Sodium Chloride (Vancomycin Inj/ NS 250 ml Inj) 262.5 ml @ 250 mls/hr Q12H IV 06/12/16 12:00 06/13/16 02:12 Miscellaneous Information SPECIFIC LAB TO BE DRAWN:VANCOMYCIN TROUGH DATE TO... ONCE ONCE XX 06/14/16 11:45 06/14/16 11:46 Amphotericin B (Amphotericin B Conv Inj) 1 mg Q24H OTHER 06/13/16 09:00 06/13/16 08:41 (Anusha Hastings) Medical Decision Making MDM Remarks 55 y/o male s/p posterior fossa craniectomy for evacuation of cerebellar bleed due to AVM with embolization at [facility] s/p ventriculostomy placement for CSF leak ventriculitis with growth of Hermila, replacement of ventriculostomy drain , started intraventricular Ampho B tx 06/12/16 (Anusha Hastings) Plan Plan Remarks daily intraventricular amphotericin cont EVD draining at 0 cm H20 cont current care Dose 2 Intraventricular Ampho B given (Anusha Hastings) Attending Statement The exam, history, and the medical decision-making described in the above note were completed with the assistance of the mid-level provider. I reviewed and agree with the findings presented. I attest that I had a [id number] encounter with the patient on the same day, and personally performed and documented my assessment and findings in the medical record. (John Flowers MD) Anusha Hastings Jun 13, 2016 09:52 John Folwers MD Jun 15, 2016 20:50
--- NOTE | 2016-06-13 15:16 | HHI.CCPN ---
Subjective Remarks/Hospital Course 55-year-old male initially admitted to [place] on 05/03/2016 after he was found down, intubated in the field and was found to have an intracranial hemorrhage from a ruptured AVM. The patient underwent placement of right frontal external ventricular drain for acute hydrocephalus and was transferred to [facility] for further treatment of the AVM by embolization followed by suboccipital craniotomy for hematoma evacuation and AVM resection. Postoperatively, he was slow to wake up, his EVD was Clamped and removed and his mental status was improving. Other complications include the UTI and agitation. He was started on Rocephin and Seroquel. The patient is being transferred back to [facility] due to confusion and questionable CSF leak. 06/03: Noted AVM embolization followed by suboccipital craniotomy for hematoma evacuation and AVM resection. Postoperatively, he was slow to wake up and a head CT showed herniation.. Noted CT last night revealed status post partial occipital craniotomy changes with Coils. Currently afebrile. Arousable and will follow commands but won't open eyes. Noted to have leaking from the occipital region plan to go back to or for suturing with neurosurgery. 06/04: Tmax 99. 3 problems overnight. Received 1 dose of Cafergot overnight for headache. Noted placement of a right ventriculostomy secondary to CSF leak yesterday. Patient is arousable. Tolerating tube feeding currently. 06/05: Afebrile. Mentation somewhat improved. Positive BM 4. Tolerating tube feeding. Will follow commands. Answers questions appropriately. 06/06: Afebrile. Sitting up in chair yesterday no acute distress. Positive BM 8 yesterday. Tolerating tube feeding. Follows commands. Still confused but answers questions appropriately. 06/07: Tmax 99. Currently on 2 L nasal cannula. Awake and alert to person only. No more CSF leak overnight. One to 2 word answers per his norm. 8 bowel movements negative C. difficile. 06/08: Tmax 99. Currently on room air. Awake and alert to person. No CSF leak. For bowel movements overnight. Noted that ventricular drain currently at 0 cm H2O 06/09: Tmax 102.2. WBC 12,000. Tolerating TFs. 06/10: Tmax 99.7. WBC declining. CT Head no change, some resolution of air in posterior fossa. TFs continue. 3/4 bottles blood positive for GPC. 06/11: Budding yeast, pseudohyphae in CSF. Enterococcus in blood. Mentation unchanged. ID consulted. 06/12: Started on Liposomal Ampho B, premedicated for mild reaction. Mentation unchanged. 06/13: Tolerating Amph B, headache only complaint. Objective Vital Signs Date Time Temp Pulse Resp B/P Pulse Ox O2 Delivery O2 Flow Rate FiO2 06/13/16 12:00 98.8 103 14 107/67 96 06/13/16 07:16 21 06/13/16 07:00 Room Air 06/12/16 10:30 3.00 Intake and Output 06/12/16 06/12/16 06/13/16 08:00 16:00 00:00 Intake Total 773 ml 620 ml 1103 ml Output Total 22.0 ml 380 ml 624 ml Balance 751.0 ml 240 ml 479 ml Result Diagram: 06/13/16 0245 06/13/16 0245 Imaging Last Impressions Head CT 06/02/16 0000 Signed Impressions: Service Date/Time: Thursday, June 02, 2016 20:00 - CONCLUSION: Postoperative partial occipital craniectomy for treatment of arteriovenous malformation with vascular coils present in the operative bed. There is encephalomalacia in the posterior fossa involving the posterior cerebellum more so on the left side. No new intracranial hemorrhage. Resolution of previous intraventricular hemorrhage. Removal of previous ventriculostomy. Kirk Cortes MD Objective Remarks GENERAL: 55-year-old male, remains conversant but oriented to self only. SKIN: Warm and dry. No rashes. HEAD: Open occipital region with drainage/CSF leak s/post occipital craniotomy. Right ventriculostomy clean and dry, fluid cloudy starting 06/10. EYES: No scleral icterus. No injection or drainage. NECK: Supple. No obstruction. Airway widely patent. CARDIOVASCULAR: Bradycardia, RR. S1, S2. No S4. Without murmurs, or rubs. RESPIRATORY: Few mobile secretions, clear with cough. GASTROINTESTINAL: Abdomen soft, non-tender, nondistended. BS active. MUSCULOSKELETAL: No cyanosis, or edema. Warm, well perfused. Neuro: Moves all 4 extremities spontaneously. Opening his eyes to voice, oriented to self. Active movement all 4 limbs. Conversant. A/P Problem List: (1) AVM (arteriovenous malformation) brain ICD Code: Q28.2 Status: Acute (2) Encephalopathy, traumatic ICD Code: F07.81 Status: Acute (3) UTI (urinary tract infection) ICD Code: N39.0 Status: Acute (4) Agitation ICD Code: R45.1 Status: Acute (5) Cerebellar hemorrhage ICD Code: I61.4 Status: Acute Assessment and Plan Neurologic/Psych: Intracranial hemorrhage Pial AVM Subarachnoid hemorrhage Mild Encephalopathy CSF leak?? - status post AVM embolization followed by suboccipital craniotomy for hematoma evacuation and AVM resection at [facility]. Postoperatively, he was slow to wake up and a head CT showed herniation. - neuro checks per unit protocol - Neurosurgery following, Dr. Flowers. Status post right ventriculostomy 06/03 - -5 cm H2O at 100 cc clear/ yellowish. Now at 0 CABG 20 Maintain ventriculostomy over weekend. Reassess on Thursday - Keppra 500 mg twice a day for seizure prophylaxis - CT of head 06/02 revealed partial occipital craniotomy with coiling. - EEG 06/03 read as normal. No seizure activity. - Currently on Seroquel 25 mg twice a day. -Medications controlling agitation well now 06/12 -Interactive Respiratory: - NC to maintain saturations greater than equal to 92% - Incentive spirometry while awake if he'll cooperate. Cardiovascular: Hypertension - Metoprol currently 12.5 milligrams by mouth twice a day with holding parameters for hypotension - continue Telemetry Renal: - Strict I/Os - attempt euvolemia - Keep well hydrated during Ampho B infusion. FEN/GI: Acute protein calorie malnutritionmild Hypernatremia Diarrhea - Currently on Jevity 1.5 goal 50 cc an hour - Continue free water 100 cc every 6 - ICU electrolyte protocol - Pepcid for GI prophylaxis - Colace/MiraLAX for bowel regimen held with diarrhea - C. difficile negative - Check prealbumin -> 19, better than expected, continue TFs as ordered. Add benepro. Heme Normocytic anemia - Does not meet transfusion triggers at this time. - Daily CBC ID - CSF and blood positive Pertinent cultures 06/03 - CSF - no organisms, NGTD 06/06: Blood Enterococcus -> vancomycin 06/10 06/10: CSF -> Hermila Endocrine: - SSI if needed Prophylaxis: GI Prophylaxis Pepcid 20 mg twice a day: DVT Prophylaxis - SCDs - Heparin subQ Overall impression: Enetrococcus bacteremia and Hermila in CSF (Hermila albicans ). Problem Qualifiers (1) UTI (urinary tract infection): (2) Cerebellar hemorrhage: Qualified Code: I61.4 - Nontraumatic intracerebral hemorrhage of cerebellum, unspecified laterality Ed Eldridge MD Jun 13, 2016 15:16
[2016-06-13] MEDS: DEXTROSE 5% IV SCH ×2 (15:45)
[2016-06-13] MEDS: WATER IV SCH ×2 (15:45)
[2016-06-13] MEDS: AMPHOTERICIN B LIPOSOME IV SCH ×2 (15:45)
--- NOTE | 2016-06-13 18:12 | HHI.IDPN ---
Subjective Subjective Remarks is a 55 y/o CM with AVM s/p coiling. ID following for Hermila ventriculitis and E.faecalis bacteremia. Overnight events reviewed. Fevers overnight 103 F max followed by 100 F. No rash No diarrhea Antibiotics Vanco IV Ampho Intra Venous Ampho Intra Ventricular. Lines Line sites with no e/o infection Past Medical History AVM s/p coil Allergies: Coded Allergies: Oxycodone (Unverified Allergy, Intermediate, ITCHY, 01/16/16) Objective . Vital Signs Date Time Temp Pulse Resp B/P Pulse Ox O2 Delivery O2 Flow Rate FiO2 06/13/16 16:00 90 06/13/16 16:00 98.6 96 17 110/61 97 06/13/16 14:00 80 06/13/16 12:00 98.8 103 14 107/67 96 06/13/16 12:00 103 06/13/16 10:00 100 06/13/16 08:00 106 06/13/16 08:00 100.1 106 24 122/68 100 06/13/16 07:16 96 21 06/13/16 07:00 99 Room Air 06/13/16 06:00 103 06/13/16 04:00 79 06/13/16 04:00 98.8 79 13 90/55 98 06/13/16 02:00 88 06/13/16 00:00 86 06/13/16 00:00 98.7 86 18 93/51 99 06/12/16 22:00 91 06/12/16 20:00 117 06/12/16 20:00 103.0 114 14 124/68 96 06/12/16 19:40 94 06/12/16 19:00 97 Room Air 06/12/16 06/12/16 06/13/16 15:00 23:00 07:00 Intake Total 620 ml 1103 ml 699 ml Output Total 80 ml 924 ml 49 ml Balance 540 ml 179 ml 650 ml Intake Oral 30 ml IV Total 172 ml 562 ml 271 ml Tube Feeding 288 ml 381 ml 368 ml Tube Irrigant 60 ml 60 ml Other 130 ml 100 ml Output Urine Total 50 ml 850 ml Tube Feeding Residual Discard 0 ml Drainage Total 30 ml 74 ml 49 ml # Voids 2 2 # Bowel Movements 0 0 0 . Laboratory Tests Test 06/12/16 06/13/16 04:00 02:45 White Blood Count 9.9 TH/MM3 10.8 TH/MM3 Red Blood Count 3.70 MIL/MM3 3.45 MIL/MM3 Hemoglobin 11.2 GM/DL 10.8 GM/DL Hematocrit 33.3 % 31.2 % Mean Corpuscular Volume 89.9 FL 90.4 FL Mean Corpuscular Hemoglobin 30.1 PG 31.2 PG Mean Corpuscular Hemoglobin 33.6 % 34.5 % Concent Red Cell Distribution Width 14.0 % 13.7 % Platelet Count 313 TH/MM3 319 TH/MM3 Mean Platelet Volume 8.3 FL 8.7 FL Neutrophils (%) (Auto) 80.1 % 79.3 % Lymphocytes (%) (Auto) 9.7 % 11.3 % Monocytes (%) (Auto) 8.3 % 8.0 % Eosinophils (%) (Auto) 1.3 % 0.7 % Basophils (%) (Auto) 0.6 % 0.7 % Neutrophils # (Auto) 7.9 TH/MM3 8.6 TH/MM3 Lymphocytes # (Auto) 1.0 TH/MM3 1.2 TH/MM3 Monocytes # (Auto) 0.8 TH/MM3 0.9 TH/MM3 Eosinophils # (Auto) 0.1 TH/MM3 0.1 TH/MM3 Basophils # (Auto) 0.1 TH/MM3 0.1 TH/MM3 CBC Comment DIFF FINAL DIFF FINAL Differential Comment Laboratory Tests Test 06/12/16 06/13/16 04:00 02:45 Sodium Level 140 MEQ/L 141 MEQ/L Potassium Level 4.0 MEQ/L 3.7 MEQ/L Chloride Level 102 MEQ/L 101 MEQ/L Carbon Dioxide Level 30.4 MEQ/L 30.8 MEQ/L Anion Gap 8 MEQ/L 9 MEQ/L Blood Urea Nitrogen 12 MG/DL 19 MG/DL Creatinine 0.44 MG/DL 0.65 MG/DL Estimat Glomerular Filtration 201 ML/MIN 128 ML/MIN Rate Random Glucose 112 MG/DL 123 MG/DL Calcium Level 8.8 MG/DL 8.8 MG/DL Total Bilirubin 0.2 MG/DL Aspartate Amino Transf 27 U/L (AST/SGOT) Alanine Aminotransferase 73 U/L (ALT/SGPT) Alkaline Phosphatase 99 U/L Total Protein 6.9 GM/DL Albumin 2.5 GM/DL Phosphorus Level 4.9 MG/DL Magnesium Level 2.4 MG/DL Microbiology Date/Time Procedure Status Source Growth 06/11/16 04:53 Aerobic Blood Culture - Preliminary Resulted Blood Peripheral NO GROWTH IN 2 DAYS 06/11/16 04:53 Anaerobic Blood Culture - Preliminary Resulted Blood Peripheral NO GROWTH IN 2 DAYS 06/11/16 05:05 Aerobic Blood Culture - Preliminary Resulted Blood Peripheral NO GROWTH IN 2 DAYS 06/11/16 05:05 Anaerobic Blood Culture - Preliminary Resulted Blood Peripheral NO GROWTH IN 2 DAYS 06/11/16 05:05 Blood Fungal Culture Resulted Blood Peripheral Pending 06/11/16 05:05 Blood Fungal Culture Resulted Blood Peripheral Pending 06/12/16 11:00 Gram Stain - Final Resulted Cerebral Spinal Fluid Shunt Fluid 06/12/16 11:00 CSF Culture - Preliminary Resulted Hermila Albicans Imaging Last Impressions Head CT 06/10/16 0600 Signed Impressions: Service Date/Time: Friday, June 10, 2016 05:01 - CONCLUSION: 1. 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 Locules of air within the fluid are decreasing since June 08. Right frontal ventriculostomy tube remains present with stable ventricular size. No hydrocephalus. Kirk Cortes MD Physical Exam GENERAL: Thin built, well-developed patient, in no apparent distress. SKIN: No rashes. Cool and dry. HEAD: Surgical site with no e/o infection. Ventric site with no gross e/o infection. EYES: Pupils equal round and reactive. Extraocular motions intact. ENT: Nose without bleeding, purulent drainage or septal hematoma. Throat without erythema, tonsillar hypertrophy or exudate. Uvula midline. Airway patent. NECK: Trachea midline.Supple, nontender, neck not very supple. Some stiffness towards end on flexion. ? patient reliability. CARDIOVASCULAR: Regular rate and rhythm. No murmur appreciated. RESPIRATORY: Clear to auscultation. Breath sounds equal bilaterally. No wheezes , rales, or rhonchi. GASTROINTESTINAL: Abdomen soft, non-tender, nondistended. MUSCULOSKELETAL: Extremities without clubbing, cyanosis, or edema. No joint tenderness, effusion, or edema noted. NEUROLOGICAL: Awake and alert. Responds to questions not appropriate all the times. Moves all 4 extremities. Psych: cooperative IV line sites with no e/o infection. Assessment & Plan Remarks Hermila albicans ventriculitis. MRI cannot be performed due to coils. CSF fluid was very cloudy and had fungal sediments. 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 E.faecalis bacteremia: No central lines or PIVs. SIRS/Sepsis now controlled since Vanco IV started. AVM was transferred to [facility] for further treatment of the AVM by embolization followed by suboccipital craniotomy for hematoma evacuation and AVM resection. CSF leak and hydrocephalus s/p Rt sima hole and Ventriculostomy catheter placement 06/03/2016. Recs: Intra Venous amphotericin Liposomal. Follow K,Mg, Phos, Cr daily while patient on Amphotericin Liposomal IV Intra Ventricular Amphotericin (d/w pharmacist IDSA recs for composition). To be instilled by or associates. MRI brain cannot be performed to look for ventriculitis or e/o fungal balls at base on skull foramina. Will follow clinically for ventriculitis, cranial nerve involvement and hydrocephalus. Continue IV Vanco target trough 15-20 Follow cultures Follow clinically Hermila albicans sent to [place] for susceptibility. Continue Benadryl IV and Hydrocortisone IV as premedication for Amphotericin IV. If fevers persist call possible Vanco induced drug fever: class of ABX may need to be switched. to cover for me this weekend. Jenifer Babin MD Jun 13, 2016 18:12
[2016-06-13] MEDS: ACETAMIN 325 MG/BUTALBITAL 50 MG/CAFFEINE 40 MG TAB PO PRN (21:31)
[2016-06-14] VITALS (14 sets, daily range): BP systolic 93–128; BP diastolic 55–69; PULSE 77–97; RESP 10–25; TEMP 98.3–99; O2SAT 94–100
[2016-06-14] MEDS: VANCOMYCIN INJ 1,250 MG in SODIUM CHLOR 0.9% 250 ML INJ 250 ML IV SCH ×2 (00:35→12:38)
[2016-06-14] MEDS: MORPHINE SULFATE 4 MG/ML INJ IV PUSH PRN ×3 (02:20→09:02)
[2016-06-14] MEDS: CHLORHEXIDINE GLUCONATE 2 % 1 PACK (2 CLOTHS) TOP SCH (04:00)
[2016-06-14] MEDS: FREE WATER G-TUBE SCH ×4 (06:00→17:57)
--- NOTE | 2016-06-14 06:48 | HHI.CCPN ---
Subjective Remarks/Hospital Course 55-year-old male initially admitted to [place] on 05/03/2016 after he was found down, intubated in the field and was found to have an intracranial hemorrhage from a ruptured AVM. The patient underwent placement of right frontal external ventricular drain for acute hydrocephalus and was transferred to [facility] for further treatment of the AVM by embolization followed by suboccipital craniotomy for hematoma evacuation and AVM resection. Postoperatively, he was slow to wake up, his EVD was Clamped and removed and his mental status was improving. Other complications include the UTI and agitation. He was started on Rocephin and Seroquel. The patient is being transferred back to [facility] due to confusion and questionable CSF leak. 06/03: Noted AVM embolization followed by suboccipital craniotomy for hematoma evacuation and AVM resection. Postoperatively, he was slow to wake up and a head CT showed herniation.. Noted CT last night revealed status post partial occipital craniotomy changes with Coils. Currently afebrile. Arousable and will follow commands but won't open eyes. Noted to have leaking from the occipital region plan to go back to or for suturing with neurosurgery. 06/04: Tmax 99. 3 problems overnight. Received 1 dose of Cafergot overnight for headache. Noted placement of a right ventriculostomy secondary to CSF leak yesterday. Patient is arousable. Tolerating tube feeding currently. 06/05: Afebrile. Mentation somewhat improved. Positive BM 4. Tolerating tube feeding. Will follow commands. Answers questions appropriately. 06/06: Afebrile. Sitting up in chair yesterday no acute distress. Positive BM 8 yesterday. Tolerating tube feeding. Follows commands. Still confused but answers questions appropriately. 06/07: Tmax 99. Currently on 2 L nasal cannula. Awake and alert to person only. No more CSF leak overnight. One to 2 word answers per his norm. 8 bowel movements negative C. difficile. 06/08: Tmax 99. Currently on room air. Awake and alert to person. No CSF leak. For bowel movements overnight. Noted that ventricular drain currently at 0 cm H2O 06/09: Tmax 102.2. WBC 12,000. Tolerating TFs. 06/10: Tmax 99.7. WBC declining. CT Head no change, some resolution of air in posterior fossa. TFs continue. 3/4 bottles blood positive for GPC. 06/11: Budding yeast, pseudohyphae in CSF. Enterococcus in blood. Mentation unchanged. ID consulted. 06/12: Started on Liposomal Ampho B, premedicated for mild reaction. Mentation unchanged. 06/13: Tolerating Amph B, headache only complaint. 06/14: Tolerating anti-fungal agent infused through ventric. ID guiding therapy. Objective Vital Signs Date Time Temp Pulse Resp B/P Pulse Ox O2 Delivery O2 Flow Rate FiO2 06/14/16 06:00 93 06/14/16 04:00 98.3 13 97/63 100 06/13/16 20:30 21 06/13/16 19:00 Room Air 06/12/16 10:30 3.00 Intake and Output 06/13/16 06/13/16 06/13/16 07:59 15:59 23:59 Intake Total 699 ml 967 ml 789 ml Output Total 49 ml 20 ml 21 ml Balance 650 ml 947 ml 768 ml Result Diagram: 06/13/16 0245 06/13/16 0245 Imaging Last Impressions Head CT 06/02/16 0000 Signed Impressions: Service Date/Time: Thursday, June 02, 2016 20:00 - CONCLUSION: Postoperative partial occipital craniectomy for treatment of arteriovenous malformation with vascular coils present in the operative bed. There is encephalomalacia in the posterior fossa involving the posterior cerebellum more so on the left side. No new intracranial hemorrhage. Resolution of previous intraventricular hemorrhage. Removal of previous ventriculostomy. Kirk Cortes MD Objective Remarks GENERAL: 55-year-old male, remains conversant and active but oriented to self only. SKIN: Warm and dry. No rashes. HEAD: Open occipital region with drainage/CSF leak s/post occipital craniotomy. Resolved leak. New right ventriculostomy placed 06/12. EYES: No scleral icterus. No injection or drainage. NECK: Supple. No obstruction. Airway widely patent. CARDIOVASCULAR: Bradycardia, RR. S1, S2. No S4. Without murmurs, or rubs. RESPIRATORY: Few mobile secretions, clear with cough. Normal excursions. GASTROINTESTINAL: Abdomen soft, non-tender, nondistended. BS active. MUSCULOSKELETAL: Warm, well perfused. Neuro: Moves all 4 extremities spontaneously. Opening his eyes to voice, oriented to self. Active movement all 4 limbs. Conversant. A/P Problem List: (1) AVM (arteriovenous malformation) brain ICD Code: Q28.2 Status: Acute (2) Encephalopathy, traumatic ICD Code: F07.81 Status: Acute (3) UTI (urinary tract infection) ICD Code: N39.0 Status: Acute (4) Agitation ICD Code: R45.1 Status: Acute (5) Cerebellar hemorrhage ICD Code: I61.4 Status: Acute Assessment and Plan Neurologic/Psych: Intracranial hemorrhage Pial AVM Subarachnoid hemorrhage Mild Encephalopathy CSF leak?? - status post AVM embolization followed by suboccipital craniotomy for hematoma evacuation and AVM resection at [facility]. Postoperatively, he was slow to wake up and a head CT showed herniation. - Neurosurgery following, Dr. Flowers. Status post right ventriculostomy 06/03, replaced 06/12 due to Hermila CSF infection. - Keppra 500 mg twice a day for seizure prophylaxis - CT of head 06/02 revealed partial occipital craniotomy with coiling. - EEG 06/03 read as normal. No seizure activity. -Interactive Respiratory: - NC to maintain saturations greater than equal to 92% - Incentive spirometry while awake when he'll cooperate. Cardiovascular: Hypertension - Metoprol currently 12.5 milligrams by mouth twice a day. - continue Telemetry Renal: - Strict I/Os - attempt euvolemia - Keep well hydrated during Ampho B infusion. FEN/GI: Acute protein calorie malnutritionmild Hypernatremia Diarrhea - Currently on Jevity 1.5 goal 50 cc an hour - Continue free water 100 cc every 6 - ICU electrolyte protocol - Pepcid for GI prophylaxis - Colace/MiraLAX for bowel regimen held with diarrhea - C. difficile negative - Check prealbumin -> 19, better than expected, continue TFs as ordered. Added benepro bid. Heme Normocytic anemia - Does not meet transfusion triggers at this time. 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 Will need long-term antifungal therapy. Problem Qualifiers (1) UTI (urinary tract infection): (2) Cerebellar hemorrhage: Qualified Code: I61.4 - Nontraumatic intracerebral hemorrhage of cerebellum, unspecified laterality Ed Eldridge MD Jun 14, 2016 06:48
[2016-06-14] MEDS: THIAMINE INJ 100 MG in SODIUM CHLORIDE 0.9% INJ 100 ML IV SCH (07:51)
[2016-06-14] MEDS: ACETAMINOPHEN 325 MG TAB PO PRN (07:52)
[2016-06-14] MEDS: FAMOTIDINE 20 MG TAB NG SCH ×2 (07:52→20:20)
[2016-06-14] MEDS: SODIUM CHLORIDE 0.9% FLUSH 5 ML FLUSH IV FLUSH SCH ×2 (07:52→20:20)
[2016-06-14] MEDS: diphenhydrAMINE HCL 50 MG/ML VIAL IV PRN (07:53)
[2016-06-14] MEDS: levETIRAcetam 500 MG TAB PO SCH ×2 (07:53→20:20)
[2016-06-14] MEDS: METOPROLOL TARTRATE 25 MG TAB PO SCH ×2 (07:53→20:20)
[2016-06-14] MEDS: QUEtiapine FUMARATE 25 MG TAB PO SCH ×2 (07:53→20:20)
[2016-06-14] MEDS: HYDROCORTISONE SOD SUCCINATE 100 MG VIAL IV PRN (07:54)
[2016-06-14] MEDS: HEPARIN SODIUM - SQ 10,000 UNITS/ML VIAL SQ SCH ×2 (08:09→20:20)
--- NOTE | 2016-06-14 08:29 | HHI.NSPN ---
(Altaf Mayberry) History Chief Complaint: No headache. Ventriculitis. (Altaf Mayberry) Interval History Mr Badillo is a 55-year-old male initially admitted to [facility] on 05/03/2016 after he was found down, intubated in the field and was found to have an intracranial hemorrhage from a ruptured AVM. The patient underwent placement of right frontal external ventricular drain for acute hydrocephalus and was transferred to [facility] for further treatment of the AVM by embolization followed by suboccipital craniotomy for hematoma evacuation, and AVM resection at [facility] . Postoperatively, he was slow to wake up, his EVD was Clamped and removed at [facility] and his mental status was improving. He had UTI and agitation. He was started on Rocephin and Seroquel. The patient was being transferred back to [facility] due to confusion and CSF leak. 06/04: s/p placement of ventriculostomy drain. no further leaking noted from posterior fossa wound, there has been scab formation also. 06/05: no wound leak seen 06/06: appears more awake today, wound dry, no evidence of CSF leaking overnight 06/09: wound dry, sitting up in chair eating breakfast 06/10: follow up CT Brain reviewed 06/11: prelim CSF testing shows elevated WBCs, proteins with low glucose, 06/12: CSF showing fungal growth, intraventricular ampho b ordered 06/13: EVD draining, no significant changes to neuro checks overnight 06/14: Pt awake. Denies headache, nausea, or vomiting. Ventriculostomy drain in place at 0cm H20. CSF appears cloudy. (Altaf Mayberry) Review of Systems General: Negative for: fever, chills, insomnia Respiratory: Negative for: shortness of breath, cough, sputum Cardiovascular: Negative for: chest pain Gastrointestinal: Negative for: nausea, vomitting, diarrhea, constipation ( Altaf Mayberry) Exam Results Vital Signs Date Time Temp Pulse Resp B/P Pulse Ox O2 Delivery O2 Flow Rate FiO2 12/10/16 07:48 94 21 06/14/16 06:00 93 06/14/16 04:00 98.3 13 97/63 06/13/16 19:00 Room Air 06/12/16 10:30 3.00 Intake and Output 06/13/16 06/13/16 06/14/16 08:00 16:00 00:00 Intake Total 699 ml 967 ml 789 ml Output Total 49 ml 20 ml 21 ml Balance 650 ml 947 ml 768 ml (Altaf Mayberry) Physical Examination Resp: CTA bilaterally Heart: NSR no murmurs Abd: Soft positive bs Skin: Ventriculostomy drain site clean and dry. Muscle: Moves all 4 extremities Neuro: Pt awakens to voice. Pupils 4mm bilaterally reactive bilaterally. Ventriculostomy drain in place at 0cm H20 with cloudy CSF. (Altaf Mayberry) Lab, Micro, Other Results Last Impressions Head CT 06/10/16 0600 Signed Impressions: Service Date/Time: Friday, June 10, 2016 05:01 - CONCLUSION: 1. 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 Locules of air within the fluid are decreasing since June 08. Right frontal ventriculostomy tube remains present with stable ventricular size. No hydrocephalus. Kirk Cortes MD 06/13/16 06/13/16 06/14/16 15:00 23:00 07:00 Intake Total 967 ml 789 ml 979 ml Output Total 20 ml 21 ml 674 ml Balance 947 ml 768 ml 305 ml Intake Oral 60 ml 50 ml IV Total 377 ml 333 ml 285 ml Tube Feeding 370 ml 346 ml 434 ml Tube Irrigant 60 ml 60 ml 60 ml Other 100 ml 200 ml Output Urine Total 625 ml Drainage Total 20 ml 21 ml 49 ml # Voids 3 1 # Bowel Movements 0 3 1 (Altaf Mayberry) Medical Decision Making Impression and Plan 55 y/o male s/p posterior fossa craniectomy for evacuation of cerebellar bleed due to AVM with embolization at [facility] s/p ventriculostomy placement for CSF leak ventriculitis with growth of Hermila, replacement of ventriculostomy drain , started intraventricular Ampho B tx 06/12/16 Plan Plan Plan Remarks daily intraventricular amphotericin cont EVD draining at 0 cm H20 cont current care (Altaf Mayberry) Attending Statement The exam, history, and the medical decision-making described in the above note were completed with the assistance of the mid-level provider. I reviewed and agree with the findings presented. I attest that I had a [id number] encounter with the patient on the same day, and personally performed and documented my assessment and findings in the medical record. (Clark Diallo MD) Altaf Mayberry Jun 14, 2016 08:29 Clark Diallo MD Jun 14, 2016 14:49
[2016-06-14] MEDS: AMPHOTERICIN B 50 MG OTHER SCH (09:02)
[2016-06-14] MEDS ORDERED: PHARMACY ORDERED LAB XX ONE (11:45)
--- NOTE | 2016-06-14 14:55 | HHI.IDPN ---
Note Infectious Disease Note ID coverage. Noted reviewed. is a 55 y/o CM with AVM s/p coiling. ID following for Hermila ventriculitis and E.faecalis bacteremia. Overnight events reviewed. Awake but confused. Afebrile. No rash No diarrhea Antibiotics Vanco IV Ampho Intra Venous Ampho Intra Ventricular. Lines Line sites with no e/o infection Past Medical History AVM s/p coil Allergies: Coded Allergies: Oxycodone (Unverified Allergy, Intermediate, ITCHY, 01/16/16) Objective Objective Vital Signs Date Time Temp Pulse Resp B/P Pulse Ox O2 Delivery O2 Flow Rate FiO2 06/14/16 14:00 95 06/14/16 12:00 85 06/14/16 12:00 98.4 85 11 93/55 98 06/14/16 10:00 78 06/14/16 08:00 97 06/14/16 08:00 99.0 97 25 112/66 98 06/14/16 07:48 94 21 06/14/16 07:00 100 Room Air 06/14/16 06:00 93 06/14/16 04:00 90 06/14/16 04:00 98.3 90 13 97/63 100 06/14/16 02:00 94 06/14/16 00:00 78 06/14/16 00:00 98.6 78 10 112/69 99 06/13/16 22:00 94 06/13/16 20:30 98 21 06/13/16 20:00 93 06/13/16 20:00 98.4 94 21 116/62 97 06/13/16 19:00 97 Room Air 06/13/16 18:00 91 06/13/16 16:00 90 06/13/16 16:00 98.6 96 17 110/61 97 . 06/13/16 06/13/16 06/14/16 14:59 22:59 06:59 Intake Total 967 ml 789 ml 979 ml Output Total 20 ml 21 ml 674 ml Balance 947 ml 768 ml 305 ml Intake Oral 60 ml 50 ml IV Total 377 ml 333 ml 285 ml Tube Feeding 370 ml 346 ml 434 ml Tube Irrigant 60 ml 60 ml 60 ml Other 100 ml 200 ml Output Urine Total 625 ml Drainage Total 20 ml 21 ml 49 ml # Voids 3 1 # Bowel Movements 0 3 1 Laboratory Tests Test 06/13/16 02:45 White Blood Count 10.8 TH/MM3 Red Blood Count 3.45 MIL/MM3 Hemoglobin 10.8 GM/DL Hematocrit 31.2 % Mean Corpuscular Volume 90.4 FL Mean Corpuscular Hemoglobin 31.2 PG Mean Corpuscular Hemoglobin 34.5 % Concent Red Cell Distribution Width 13.7 % Platelet Count 319 TH/MM3 Mean Platelet Volume 8.7 FL Neutrophils (%) (Auto) 79.3 % Lymphocytes (%) (Auto) 11.3 % Monocytes (%) (Auto) 8.0 % Eosinophils (%) (Auto) 0.7 % Basophils (%) (Auto) 0.7 % Neutrophils # (Auto) 8.6 TH/MM3 Lymphocytes # (Auto) 1.2 TH/MM3 Monocytes # (Auto) 0.9 TH/MM3 Eosinophils # (Auto) 0.1 TH/MM3 Basophils # (Auto) 0.1 TH/MM3 CBC Comment DIFF FINAL Differential Comment Laboratory Tests Test 06/13/16 02:45 Sodium Level 141 MEQ/L Potassium Level 3.7 MEQ/L Chloride Level 101 MEQ/L Carbon Dioxide Level 30.8 MEQ/L Anion Gap 9 MEQ/L Blood Urea Nitrogen 19 MG/DL Creatinine 0.65 MG/DL Estimat Glomerular Filtration 128 ML/MIN Rate Random Glucose 123 MG/DL Calcium Level 8.8 MG/DL Phosphorus Level 4.9 MG/DL Magnesium Level 2.4 MG/DL Microbiology Date/Time Procedure Status Source Growth 06/11/16 04:53 Aerobic Blood Culture - Preliminary Resulted Blood Peripheral NO GROWTH IN 2 DAYS 06/11/16 04:53 Anaerobic Blood Culture - Preliminary Resulted Blood Peripheral NO GROWTH IN 2 DAYS 06/11/16 05:05 Aerobic Blood Culture - Preliminary Resulted Blood Peripheral NO GROWTH IN 2 DAYS 06/11/16 05:05 Anaerobic Blood Culture - Preliminary Resulted Blood Peripheral NO GROWTH IN 2 DAYS 06/11/16 05:05 Blood Fungal Culture Resulted Blood Peripheral Pending 06/11/16 05:05 Blood Fungal Culture Resulted Blood Peripheral Pending 06/12/16 11:00 Gram Stain - Final Resulted Cerebral Spinal Fluid Shunt Fluid 06/12/16 11:00 CSF Culture - Preliminary Resulted Hermila Albicans Imaging Head CT 06/10/16 0600 Signed Impressions: Service Date/Time: Friday, June 10, 2016 05:01 - CONCLUSION: 1. 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 Locules of air within the fluid are decreasing since June 08. Right frontal ventriculostomy tube remains present with stable ventricular size. No hydrocephalus. Kirk Cortes MD Physical Exam GENERAL: Thin built, well-developed patient, in no apparent distress. SKIN: No rashes. Cool and dry. HEAD: Surgical site with no e/o infection. Ventric site with no gross e/o infection. EYES: Pupils equal round and reactive. Extraocular motions intact. ENT: Nose without bleeding, purulent drainage or septal hematoma. Throat without erythema, tonsillar hypertrophy or exudate. Uvula midline. Airway patent. NECK: Trachea midline. nontender, neck not very supple. Some stiffness towards end on flexion. ? patient reliability. CARDIOVASCULAR: Regular rate and rhythm. No murmur appreciated. RESPIRATORY: Clear to auscultation. Breath sounds equal bilaterally. No wheezes , rales, or rhonchi. GASTROINTESTINAL: Abdomen soft, non-tender, nondistended. MUSCULOSKELETAL: Extremities without clubbing, cyanosis, or edema. No joint tenderness, effusion, or edema noted. NEUROLOGICAL: Awake and alert. Responds to questions not appropriate all the times. Moves all 4 extremities. Psych: cooperative IV line sites with no e/o infection. Assessment & Plan Hermila albicans ventriculitis. MRI cannot be performed due to coils. CSF fluid was very cloudy and had fungal sediments. 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 E.faecalis bacteremia: No central lines or PIVs. SIRS/Sepsis now controlled since Vanco IV started. AVM was transferred to [facility] for further treatment of the AVM by embolization followed by suboccipital craniotomy for hematoma evacuation and AVM resection. CSF leak and hydrocephalus s/p Rt sima hole and Ventriculostomy catheter placement 06/03/2016. Recs: Intra Venous amphotericin Liposomal. Follow K,Mg, Phos, Cr daily while patient on Amphotericin Liposomal IV Intra Ventricular Amphotericin (d/w pharmacist IDSA recs for composition). To be instilled by or associates. MRI brain cannot be performed to look for ventriculitis or e/o fungal balls at base on skull foramina. Will follow clinically for ventriculitis, cranial nerve involvement and hydrocephalus. Continue IV Vanco target trough 15-20 Follow cultures Follow clinically Hermila albicans sent to [place] for susceptibility. Continue Benadryl IV and Hydrocortisone IV as premedication for Amphotericin IV. Nader Blum MD Jun 14, 2016 14:55
[2016-06-14] MEDS: WATER IV SCH ×2 (16:47)
[2016-06-14] MEDS: DEXTROSE 5% IV SCH ×2 (16:47)
[2016-06-14] MEDS: AMPHOTERICIN B LIPOSOME IV SCH ×2 (16:47)
[2016-06-15] VITALS (13 sets, daily range): BP systolic 89–137; BP diastolic 55–92; PULSE 68–98; RESP 12–24; TEMP 98.1–100.2; O2SAT 96–100
[2016-06-15] MEDS: ONDANSETRON HCL 4 MG/2 ML VIAL IV PRN ×2 (01:37→21:27)
[2016-06-15] MEDS: MORPHINE SULFATE 4 MG/ML INJ IV PUSH PRN ×3 (01:38→21:27)
[2016-06-15] MEDS: CHLORHEXIDINE GLUCONATE 2 % 1 PACK (2 CLOTHS) TOP SCH (02:12)
[2016-06-15 04:24] LABS: AUTOMATED NEUTROPHIL # 12.1 TH/MM3 (1.8-7.7); BASOPHIL # 0.1 TH/MM3 (0-0.2); BASOPHIL % 0.7 % (0.0-2.0); EOSINOPHIL # 0.1 TH/MM3 (0-0.4); EOSINOPHIL % 0.5 % (0.0-4.0); HEMATOCRIT 31.2 % (39.0-51.0); HEMO FLAGS DIFF FINAL; LYMPH % 7.1 % (9.0-44.0); MEAN CELL VOLUME 89.9 FL (80.0-100.0); MEAN CORPUSCULAR HEMOGLOBIN 29.8 PG (27.0-34.0); MEAN CORPUSCULAR HGB CONC 33.1 % (32.0-36.0); MONO % 4.5 % (0.0-8.0); NEUT % 87.2 % (16.0-70.0); PLATELET COUNT 383 TH/MM3 (150-450); RED BLOOD COUNT 3.47 MIL/MM3 (4.50-5.90); RED CELL DISTRIBUTION WIDTH 13.9 % (11.6-17.2); WHITE BLOOD COUNT 13.9 TH/MM3 (4.0-11.0)
[2016-06-15 04:42] LABS: BICARBONATE 30.3 MEQ/L (21.0-32.0); POTASSIUM 3.8 MEQ/L (3.5-5.1)
[2016-06-15] MEDS: FREE WATER G-TUBE SCH ×5 (06:16→23:39)
--- NOTE | 2016-06-15 07:21 | HHI.NSPN ---
(Altaf Mayberry) History Chief Complaint: No headache. Ventriculitis. 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 The patient underwent placement of right frontal external ventricular drain for acute hydrocephalus and was transferred to [facility] for further treatment of the AVM by embolization followed by suboccipital craniotomy for hematoma evacuation, and AVM resection at [facility] . Postoperatively, he was slow to wake up, his EVD was Clamped and removed at [facility] and his mental status was improving. He had UTI and agitation. He was started on Rocephin and Seroquel. The patient was being transferred back to [facility] due to confusion and CSF leak. 06/04: s/p placement of ventriculostomy drain. no further leaking noted from posterior fossa wound, there has been scab formation also. 06/05: no wound leak seen 06/06: appears more awake today, wound dry, no evidence of CSF leaking overnight 06/09: wound dry, sitting up in chair eating breakfast 06/10: follow up CT Brain reviewed 06/11: prelim CSF testing shows elevated WBCs, proteins with low glucose, 06/12: CSF showing fungal growth, intraventricular ampho b ordered 06/13: EVD draining, no significant changes to neuro checks overnight 06/14: Pt awake. Denies headache, nausea, or vomiting. Ventriculostomy drain in place at 0cm H20. CSF appears cloudy. 06/15: Pt awake and alert. Denies headache but had one earlier with some vomiting. Ventriculostomy remains at 0cm H20 with cloudy CSF drainage. (Altaf Mayberry) Review of Systems General: Negative for: fever, chills, insomnia Respiratory: Negative for: shortness of breath, cough, sputum Cardiovascular: Negative for: chest pain Gastrointestinal: Positive for: nausea, vomitting (Earlier today.), Negative for: diarrhea, constipation (Altaf Mayberry) Exam Results Vital Signs Date Time Temp Pulse Resp B/P Pulse Ox O2 Delivery O2 Flow Rate FiO2 06/15/16 06:00 89 06/15/16 04:00 98.5 24 113/65 96 06/14/16 20:21 21 06/14/16 19:00 Room Air 06/12/16 10:30 3.00 Intake and Output 06/14/16 06/14/16 06/14/16 07:59 15:59 23:59 Intake Total 979 ml 730 ml 697 ml Output Total 674 ml 40 ml 11 ml Balance 305 ml 690 ml 686 ml (Altaf Mayberry) Physical Examination Resp: CTA bilaterally Heart: NSR no murmurs Abd: Soft positive bs Skin: Ventriculostomy drain site clean and dry. Muscle: Moves all 4 extremities Neuro: Pt awakens to voice. Pupils 4mm bilaterally reactive bilaterally. Ventriculostomy drain in place at 0cm H20 with cloudy CSF. (Altaf Mayberry) Lab, Micro, Other Results Last Impressions Head CT 06/10/16 0600 Signed Impressions: Service Date/Time: Friday, June 10, 2016 05:01 - CONCLUSION: 1. 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 Locules of air within the fluid are decreasing since June 08. Right frontal ventriculostomy tube remains present with stable ventricular size. No hydrocephalus. Kirk Cortes MD Laboratory Tests Test 06/14/16 06/15/16 12:30 03:31 Vancomycin Level Trough 21.6 MCG/ML White Blood Count 13.9 TH/MM3 Red Blood Count 3.47 MIL/MM3 Hemoglobin 10.4 GM/DL Hematocrit 31.2 % Mean Corpuscular Volume 89.9 FL Mean Corpuscular Hemoglobin 29.8 PG Mean Corpuscular Hemoglobin 33.1 % Concent Red Cell Distribution Width 13.9 % Platelet Count 383 TH/MM3 Mean Platelet Volume 8.2 FL Neutrophils (%) (Auto) 87.2 % Lymphocytes (%) (Auto) 7.1 % Monocytes (%) (Auto) 4.5 % Eosinophils (%) (Auto) 0.5 % Basophils (%) (Auto) 0.7 % Neutrophils # (Auto) 12.1 TH/MM3 Lymphocytes # (Auto) 1.0 TH/MM3 Monocytes # (Auto) 0.6 TH/MM3 Eosinophils # (Auto) 0.1 TH/MM3 Basophils # (Auto) 0.1 TH/MM3 CBC Comment DIFF FINAL Differential Comment Sodium Level 144 MEQ/L Potassium Level 3.8 MEQ/L Chloride Level 106 MEQ/L Carbon Dioxide Level 30.3 MEQ/L Anion Gap 8 MEQ/L Blood Urea Nitrogen 28 MG/DL Creatinine 0.99 MG/DL Estimat Glomerular Filtration 79 ML/MIN Rate Random Glucose 118 MG/DL Calcium Level 9.0 MG/DL 06/14/16 06/14/16 06/15/16 14:59 22:59 06:59 Intake Total 730 ml 697 ml 811 ml Output Total 40 ml 11 ml 207 ml Balance 690 ml 686 ml 604 ml Intake Oral 0 ml IV Total 377 ml 340 ml 374 ml Tube Feeding 313 ml 297 ml 177 ml Tube Irrigant 40 ml 60 ml 60 ml Other 0 ml 200 ml Output Urine Total 175 ml Drainage Total 40 ml 11 ml 32 ml # Voids 3 2 1 # Bowel Movements 0 0 2 (Altaf Mayberry) Medical Decision Making Impression and Plan 55 y/o male s/p posterior fossa craniectomy for evacuation of cerebellar bleed due to AVM with embolization at [facility] s/p ventriculostomy placement for CSF leak ventriculitis with growth of Hermila, replacement of ventriculostomy drain , started intraventricular Ampho B tx 06/12/16 Plan Plan Plan Remarks daily intraventricular amphotericin cont EVD draining at 0 cm H20 cont current care (Altaf Mayberry) Attending Statement The exam, history, and the medical decision-making described in the above note were completed with the assistance of the mid-level provider. I reviewed and agree with the findings presented. I attest that I had a [id number] encounter with the patient on the same day, and personally performed and documented my assessment and findings in the medical record. (Clark Diallo MD) Altaf Mayberry Jun 15, 2016 07:21 Clark Diallo MD Jun 15, 2016 10:46
[2016-06-15] MEDS: THIAMINE INJ 100 MG in SODIUM CHLORIDE 0.9% INJ 100 ML IV SCH (08:02)
[2016-06-15] MEDS: SODIUM CHLORIDE 0.9% FLUSH 5 ML FLUSH IV FLUSH SCH ×2 (08:02→21:28)
[2016-06-15] MEDS: HEPARIN SODIUM - SQ 10,000 UNITS/ML VIAL SQ SCH ×2 (08:03→21:27)
[2016-06-15] MEDS: HYDROCORTISONE SOD SUCCINATE 100 MG VIAL IV PRN (08:05)
[2016-06-15] MEDS: diphenhydrAMINE HCL 50 MG/ML VIAL IV PRN (08:07)
[2016-06-15] MEDS: ACETAMINOPHEN 325 MG TAB PO PRN ×2 (08:09→16:40)
[2016-06-15] MEDS: METOPROLOL TARTRATE 25 MG TAB PO SCH ×2 (08:10→21:27)
[2016-06-15] MEDS: FAMOTIDINE 20 MG TAB NG SCH ×2 (08:10→21:27)
[2016-06-15] MEDS: QUEtiapine FUMARATE 25 MG TAB PO SCH ×2 (08:10→21:27)
[2016-06-15] MEDS: levETIRAcetam 500 MG TAB PO SCH ×2 (08:10→21:27)
--- NOTE | 2016-06-15 08:53 | HHI.CCPN ---
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 The patient underwent placement of right frontal external ventricular drain for acute hydrocephalus and was transferred to [facility] for further treatment of the AVM by embolization followed by suboccipital craniotomy for hematoma evacuation and AVM resection. Postoperatively, he was slow to wake up, his EVD was Clamped and removed and his mental status was improving. Other complications include the UTI and agitation. He was started on Rocephin and Seroquel. The patient is being transferred back to [facility] due to confusion and questionable CSF leak. 06/03: Noted AVM embolization followed by suboccipital craniotomy for hematoma evacuation and AVM resection. Postoperatively, he was slow to wake up and a head CT showed herniation.. Noted CT last night revealed status post partial occipital craniotomy changes with Coils. Currently afebrile. Arousable and will follow commands but won't open eyes. Noted to have leaking from the occipital region plan to go back to or for suturing with neurosurgery. 06/04: Tmax 99. 3 problems overnight. Received 1 dose of Cafergot overnight for headache. Noted placement of a right ventriculostomy secondary to CSF leak yesterday. Patient is arousable. Tolerating tube feeding currently. 06/05: Afebrile. Mentation somewhat improved. Positive BM 4. Tolerating tube feeding. Will follow commands. Answers questions appropriately. 06/06: Afebrile. Sitting up in chair yesterday no acute distress. Positive BM 8 yesterday. Tolerating tube feeding. Follows commands. Still confused but answers questions appropriately. 06/07: Tmax 99. Currently on 2 L nasal cannula. Awake and alert to person only. No more CSF leak overnight. One to 2 word answers per his norm. 8 bowel movements negative C. difficile. 06/08: Tmax 99. Currently on room air. Awake and alert to person. No CSF leak. For bowel movements overnight. Noted that ventricular drain currently at 0 cm H2O 06/09: Tmax 102.2. WBC 12,000. Tolerating TFs. 06/10: Tmax 99.7. WBC declining. CT Head no change, some resolution of air in posterior fossa. TFs continue. 3/4 bottles blood positive for GPC. 06/11: Budding yeast, pseudohyphae in CSF. Enterococcus in blood. Mentation unchanged. ID consulted. 06/12: Started on Liposomal Ampho B, premedicated for mild reaction. Mentation unchanged. 06/13: Tolerating Amph B, headache only complaint. 06/14: Tolerating anti-fungal agent infused through ventric. ID guiding therapy. 06/15: A little dry - hydrate with NS bolus. Continue TFs. Objective Vital Signs Date Time Temp Pulse Resp B/P Pulse Ox O2 Delivery O2 Flow Rate FiO2 06/15/16 07:59 96 21 06/15/16 06:00 89 06/15/16 04:00 98.5 24 113/65 06/14/16 19:00 Room Air 06/12/16 10:30 3.00 Intake and Output 06/14/16 06/14/16 06/14/16 07:59 15:59 23:59 Intake Total 979 ml 730 ml 697 ml Output Total 674 ml 40 ml 11 ml Balance 305 ml 690 ml 686 ml Result Diagram: 06/15/16 0331 06/15/16 0331 Imaging Last Impressions Head CT 06/02/16 0000 Signed Impressions: Service Date/Time: Thursday, June 02, 2016 20:00 - CONCLUSION: Postoperative partial occipital craniectomy for treatment of arteriovenous malformation with vascular coils present in the operative bed. There is encephalomalacia in the posterior fossa involving the posterior cerebellum more so on the left side. No new intracranial hemorrhage. Resolution of previous intraventricular hemorrhage. Removal of previous ventriculostomy. Kirk Cortes MD Objective Remarks GENERAL: 55-year-old male, remains conversant and active. Confused. SKIN: Warm and dry. No rashes. HEAD: Dry posterior wound, clean, healing well.. New right ventriculostomy placed 06/12. NECK: Supple. No obstruction. Airway widely patent. CARDIOVASCULAR: RRR. S1, S2. Without murmurs, or rubs. No JVD. RESPIRATORY: Few mobile secretions, clear with cough. Normal excursions. GASTROINTESTINAL: Abdomen soft, non-tender, nondistended. BS active. MUSCULOSKELETAL: Warm, well perfused. Neuro: Moves all 4 extremities spontaneously. Opening his eyes to voice, oriented to self. Active movement all 4 limbs. Conversant. A/P Problem List: (1) AVM (arteriovenous malformation) brain ICD Code: Q28.2 Status: Acute (2) Encephalopathy, traumatic ICD Code: F07.81 Status: Acute (3) UTI (urinary tract infection) ICD Code: N39.0 Status: Acute (4) Agitation ICD Code: R45.1 Status: Acute (5) Cerebellar hemorrhage ICD Code: I61.4 Status: Acute Assessment and Plan Neurologic/Psych: Intracranial hemorrhage Pial AVM Subarachnoid hemorrhage Mild Encephalopathy CSF leak?? - status post AVM embolization followed by suboccipital craniotomy for hematoma evacuation and AVM resection at [facility]. Postoperatively, he was slow to wake up and a head CT showed herniation. - Neurosurgery following, Dr. Flowers. Status post right ventriculostomy 06/03, replaced 06/12 due to Hermila CSF infection. - Keppra 500 mg twice a day for seizure prophylaxis - CT of head 06/02 revealed partial occipital craniotomy with coiling. - EEG 06/03 read as normal. No seizure activity. - Interactive Respiratory: - NC to maintain saturations greater than equal to 92% - Incentive spirometry while awake when he'll cooperate. Cardiovascular: Hypertension - Metoprol currently 12.5 milligrams by mouth twice a day. - continue Telemetry Renal: - Strict I/Os - attempt euvolemia - Keep well hydrated during Ampho B infusion. FEN/GI: Acute protein calorie malnutritionmild Hypernatremia Diarrhea - Currently on Jevity 1.5 goal 50 cc an hour - Continue free water 100 cc every 6 - ICU electrolyte protocol - Pepcid for GI prophylaxis - Colace/MiraLAX for bowel regimen held with diarrhea - C. difficile negative - Check prealbumin -> 19, better than expected, continue TFs as ordered. Added benepro bid. Heme Normocytic anemia - Does not meet transfusion triggers at this time. 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 Will need long-term antifungal therapy. Hydrate today. Problem Qualifiers (1) UTI (urinary tract infection): (2) Cerebellar hemorrhage: Qualified Code: I61.4 - Nontraumatic intracerebral hemorrhage of cerebellum, unspecified laterality Ed Eldridge MD Jun 15, 2016 08:53
[2016-06-15] MEDS ORDERED: SODIUM CHLOR 0.9% 1000 ML INJ 1,000 ML IV ONE (09:00)
[2016-06-15] MEDS: AMPHOTERICIN B 50 MG OTHER SCH (09:07)
[2016-06-15] MEDS: ACETAMIN 325 MG/BUTALBITAL 50 MG/CAFFEINE 40 MG TAB PO PRN (10:15)
[2016-06-15] MEDS: VANCOMYCIN 1,000 MG/NS 250 ML IV SCH ×6 (11:52→23:39)
[2016-06-15] MEDS: WATER IV SCH ×2 (14:45)
[2016-06-15] MEDS: DEXTROSE 5% IV SCH ×2 (14:45)
[2016-06-15] MEDS: AMPHOTERICIN B LIPOSOME IV SCH ×2 (14:45)
--- NOTE | 2016-06-15 15:16 | HHI.IDPN ---
Note Infectious Disease Note ID coverage. Noted reviewed. is a 55 y/o CM with AVM s/p coiling. ID following for Hermila ventriculitis and E.faecalis bacteremia. Overnight events reviewed. Awake but remains pleasantly confused. Afebrile. No rash No diarrhea Antibiotics Vanco IV Ampho Intra Venous Ampho Intra Ventricular. Lines Line sites with no e/o infection Past Medical History AVM s/p coil Allergies: Coded Allergies: Oxycodone (Unverified Allergy, Intermediate, ITCHY, 01/16/16) Objective Vital Signs Date Time Temp Pulse Resp B/P Pulse Ox O2 Delivery O2 Flow Rate FiO2 06/15/16 10:00 92 06/15/16 08:00 98.3 88 14 117/71 97 06/15/16 08:00 94 06/15/16 07:59 96 21 06/15/16 07:00 96 Room Air 06/15/16 06:00 89 06/15/16 04:00 98 06/15/16 04:00 98.5 98 24 113/65 96 06/15/16 02:00 93 06/15/16 00:00 86 06/15/16 00:00 98.6 86 13 113/69 98 06/14/16 22:00 77 06/14/16 20:21 99 21 06/14/16 20:00 96 06/14/16 20:00 98.9 96 20 128/69 100 06/14/16 19:00 99 Room Air 06/14/16 18:00 97 06/14/16 16:00 87 06/14/16 16:00 98.9 87 13 105/66 99 06/14/16 06/14/16 06/15/16 15:00 23:00 07:00 Intake Total 730 ml 697 ml 811 ml Output Total 40 ml 11 ml 207 ml Balance 690 ml 686 ml 604 ml Intake Oral 0 ml IV Total 377 ml 340 ml 374 ml Tube Feeding 313 ml 297 ml 177 ml Tube Irrigant 40 ml 60 ml 60 ml Other 0 ml 200 ml Output Urine Total 175 ml Drainage Total 40 ml 11 ml 32 ml # Voids 3 2 1 # Bowel Movements 0 0 2 Laboratory Tests Test 06/15/16 03:31 White Blood Count 13.9 TH/MM3 Red Blood Count 3.47 MIL/MM3 Hemoglobin 10.4 GM/DL Hematocrit 31.2 % Mean Corpuscular Volume 89.9 FL Mean Corpuscular Hemoglobin 29.8 PG Mean Corpuscular Hemoglobin 33.1 % Concent Red Cell Distribution Width 13.9 % Platelet Count 383 TH/MM3 Mean Platelet Volume 8.2 FL Neutrophils (%) (Auto) 87.2 % Lymphocytes (%) (Auto) 7.1 % Monocytes (%) (Auto) 4.5 % Eosinophils (%) (Auto) 0.5 % Basophils (%) (Auto) 0.7 % Neutrophils # (Auto) 12.1 TH/MM3 Lymphocytes # (Auto) 1.0 TH/MM3 Monocytes # (Auto) 0.6 TH/MM3 Eosinophils # (Auto) 0.1 TH/MM3 Basophils # (Auto) 0.1 TH/MM3 CBC Comment DIFF FINAL Differential Comment Laboratory Tests Test 06/15/16 03:31 Sodium Level 144 MEQ/L Potassium Level 3.8 MEQ/L Chloride Level 106 MEQ/L Carbon Dioxide Level 30.3 MEQ/L Anion Gap 8 MEQ/L Blood Urea Nitrogen 28 MG/DL Creatinine 0.99 MG/DL Estimat Glomerular Filtration 79 ML/MIN Rate Random Glucose 118 MG/DL Calcium Level 9.0 MG/DL Microbiology Date/Time Procedure Status Source Growth 06/11/16 04:53 Aerobic Blood Culture - Preliminary Resulted Blood Peripheral NO GROWTH IN 2 DAYS 06/11/16 04:53 Anaerobic Blood Culture - Preliminary Resulted Blood Peripheral NO GROWTH IN 2 DAYS 06/11/16 05:05 Aerobic Blood Culture - Preliminary Resulted Blood Peripheral NO GROWTH IN 2 DAYS 06/11/16 05:05 Anaerobic Blood Culture - Preliminary Resulted Blood Peripheral NO GROWTH IN 2 DAYS 06/11/16 05:05 Blood Fungal Culture Resulted Blood Peripheral Pending 06/11/16 05:05 Blood Fungal Culture Resulted Blood Peripheral Pending 06/12/16 11:00 Gram Stain - Final Resulted Cerebral Spinal Fluid Shunt Fluid 06/12/16 11:00 CSF Culture - Preliminary Resulted Hermila Albicans Imaging Head CT 06/10/16 0600 Signed Impressions: Service Date/Time: Friday, June 10, 2016 05:01 - CONCLUSION: 1. 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 Locules of air within the fluid are decreasing since June 08. Right frontal ventriculostomy tube remains present with stable ventricular size. No hydrocephalus. Kirk Cortes MD Physical Exam GENERAL: Thin built, well-developed patient, in no apparent distress. SKIN: No rashes. Cool and dry. HEAD: Surgical site with no e/o infection. Ventric site with no gross e/o infection. EYES: Pupils equal round and reactive. Extraocular motions intact. NECK: Trachea midline. nontender. CARDIOVASCULAR: Regular rate and rhythm. No murmur appreciated. RESPIRATORY: Clear to auscultation. Breath sounds equal bilaterally. No wheezes , rales, or rhonchi. GASTROINTESTINAL: Abdomen soft, non-tender, nondistended. MUSCULOSKELETAL: Extremities without clubbing, cyanosis, or edema. NEUROLOGICAL: Awake and alert. Responds to questions but not appropriately. Moves all 4 extremities. Psych: cooperative IV line sites with no e/o infection. Assessment & Plan Hermila albicans ventriculitis. MRI cannot be performed due to coils. CSF fluid was very cloudy and had fungal sediments. Patient candidate for [employer] shunt in near future. E.faecalis bacteremia: No central lines or PIVs. SIRS/Sepsis now controlled since Vanco IV started. AVM was transferred to [facility] for further treatment of the AVM by embolization followed by suboccipital craniotomy for hematoma evacuation and AVM resection. CSF leak and hydrocephalus s/p Rt sima hole and Ventriculostomy catheter placement 06/03/2016. Recs: Intra Venous amphotericin Liposomal. Follow K,Mg, Phos, Cr daily while patient on Amphotericin Liposomal IV Intra Ventricular Amphotericin (d/w pharmacist IDSA recs for composition). To be instilled by or associates. MRI brain cannot be performed to look for ventriculitis or e/o fungal balls at base on skull foramina. Will follow clinically for ventriculitis, cranial nerve involvement and hydrocephalus. Continue IV Vanco target trough 15-20 Follow cultures Follow clinically Hermila albicans sent to [place] for susceptibility. Continue Benadryl IV and Hydrocortisone IV as premedication for Amphotericin IV. Nader Blum MD Jun 15, 2016 15:15
[2016-06-16] VITALS (13 sets, daily range): BP systolic 89–133; BP diastolic 57–89; PULSE 76–106; RESP 12–18; TEMP 97.8–101.7; O2SAT 98–100
[2016-06-16] MEDS: ACETAMIN 325 MG/BUTALBITAL 50 MG/CAFFEINE 40 MG TAB PO PRN ×2 (02:45→08:09)
[2016-06-16] MEDS: CHLORHEXIDINE GLUCONATE 2 % 1 PACK (2 CLOTHS) TOP SCH (03:54)
[2016-06-16 04:41] LABS: AUTOMATED NEUTROPHIL # 9.6 TH/MM3 (1.8-7.7); BASOPHIL # 0.1 TH/MM3 (0-0.2); BASOPHIL % 0.9 % (0.0-2.0); EOSINOPHIL # 0.2 TH/MM3 (0-0.4); EOSINOPHIL % 1.4 % (0.0-4.0); HEMATOCRIT 29.2 % (39.0-51.0); HEMO FLAGS DIFF FINAL; LYMPH % 11.7 % (9.0-44.0); LYMPHOCYTE # 1.4 TH/MM3 (1.0-4.8); MEAN CELL VOLUME 90.8 FL (80.0-100.0); MEAN CORPUSCULAR HEMOGLOBIN 30.1 PG (27.0-34.0); MEAN CORPUSCULAR HGB CONC 33.1 % (32.0-36.0); MONO % 5.9 % (0.0-8.0); NEUT % 80.1 % (16.0-70.0); PLATELET COUNT 376 TH/MM3 (150-450); RED BLOOD COUNT 3.21 MIL/MM3 (4.50-5.90); RED CELL DISTRIBUTION WIDTH 13.9 % (11.6-17.2)
[2016-06-16 05:08] LABS: BICARBONATE 33.4 MEQ/L (21.0-32.0); POTASSIUM 3.5 MEQ/L (3.5-5.1)
[2016-06-16] MEDS: FREE WATER G-TUBE SCH ×4 (06:12→23:27)
[2016-06-16] MEDS: POTASSIUM CL 40 MEQ/30 ML LIQ UDC PO/TUBE PRN (06:34)
--- NOTE | 2016-06-16 07:55 | HHI.CCPN ---
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 The patient underwent placement of right frontal external ventricular drain for acute hydrocephalus and was transferred to [facility] for further treatment of the AVM by embolization followed by suboccipital craniotomy for hematoma evacuation and AVM resection. Postoperatively, he was slow to wake up, his EVD was Clamped and removed and his mental status was improving. Other complications include the UTI and agitation. He was started on Rocephin and Seroquel. The patient is being transferred back to [facility] due to confusion and questionable CSF leak. 06/03: Noted AVM embolization followed by suboccipital craniotomy for hematoma evacuation and AVM resection. Postoperatively, he was slow to wake up and a head CT showed herniation.. Noted CT last night revealed status post partial occipital craniotomy changes with Coils. Currently afebrile. Arousable and will follow commands but won't open eyes. Noted to have leaking from the occipital region plan to go back to or for suturing with neurosurgery. 06/04: Tmax 99. 3 problems overnight. Received 1 dose of Cafergot overnight for headache. Noted placement of a right ventriculostomy secondary to CSF leak yesterday. Patient is arousable. Tolerating tube feeding currently. 06/05: Afebrile. Mentation somewhat improved. Positive BM 4. Tolerating tube feeding. Will follow commands. Answers questions appropriately. 06/06: Afebrile. Sitting up in chair yesterday no acute distress. Positive BM 8 yesterday. Tolerating tube feeding. Follows commands. Still confused but answers questions appropriately. 06/07: Tmax 99. Currently on 2 L nasal cannula. Awake and alert to person only. No more CSF leak overnight. One to 2 word answers per his norm. 8 bowel movements negative C. difficile. 06/08: Tmax 99. Currently on room air. Awake and alert to person. No CSF leak. For bowel movements overnight. Noted that ventricular drain currently at 0 cm H2O 06/09: Tmax 102.2. WBC 12,000. Tolerating TFs. 06/10: Tmax 99.7. WBC declining. CT Head no change, some resolution of air in posterior fossa. TFs continue. 3/4 bottles blood positive for GPC. 06/11: Budding yeast, pseudohyphae in CSF. Enterococcus in blood. Mentation unchanged. ID consulted. 06/12: Started on Liposomal Ampho B, premedicated for mild reaction. Mentation unchanged. 06/13: Tolerating Amph B, headache only complaint. 06/14: Tolerating anti-fungal agent infused through ventric. ID guiding therapy. 06/15: A little dry - hydrate with NS bolus. Continue TFs. 06/16: continues to clinically appear slightly volume deplete. increasing free water to 200 q6h per tube. otherwise no significant change. continues to have agitated delirium, but neuro status is so labile, we are holding pharmacologic therapies. Objective Vital Signs Date Time Temp Pulse Resp B/P Pulse Ox O2 Delivery O2 Flow Rate FiO2 06/16/16 07:00 98 Room Air 06/16/16 06:00 85 06/16/16 04:00 98.2 13 89/57 06/15/16 20:19 21 06/12/16 10:30 3.00 Intake and Output 06/15/16 06/15/16 06/15/16 07:59 15:59 23:59 Intake Total 811 ml 1809 ml 807 ml Output Total 207 ml 463 ml 469 ml Balance 604 ml 1346 ml 338 ml Result Diagram: 06/16/168 06/16/16317 Imaging Last Impressions Head CT 06/02/16 0000 Signed Impressions: Service Date/Time: Thursday, June 02, 2016 20:00 - CONCLUSION: Postoperative partial occipital craniectomy for treatment of arteriovenous malformation with vascular coils present in the operative bed. There is encephalomalacia in the posterior fossa involving the posterior cerebellum more so on the left side. No new intracranial hemorrhage. Resolution of previous intraventricular hemorrhage. Removal of previous ventriculostomy. Kirk Cortes MD Objective Remarks GENERAL: 55-year-old male, remains conversant and active. Confused. SKIN: Warm and dry. No rashes. HEAD: Dry posterior wound, clean, healing well.. New right ventriculostomy placed 06/12. NECK: Supple. No obstruction. Airway widely patent. CARDIOVASCULAR: RRR. S1, S2. Without murmurs, or rubs. No JVD. RESPIRATORY: Few mobile secretions, clear with cough. Normal excursions. GASTROINTESTINAL: Abdomen soft, non-tender, nondistended. BS active. MUSCULOSKELETAL: Warm, well perfused. Neuro: Moves all 4 extremities spontaneously. Opening his eyes to voice, oriented to self. Active movement all 4 limbs. Conversant. follows commands. A/P Problem List: (1) AVM (arteriovenous malformation) brain ICD Code: Q28.2 Status: Acute (2) Encephalopathy, traumatic ICD Code: F07.81 Status: Acute (3) UTI (urinary tract infection) ICD Code: N39.0 Status: Acute (4) Agitation ICD Code: R45.1 Status: Acute (5) Cerebellar hemorrhage ICD Code: I61.4 Status: Acute Assessment and Plan Neurologic/Psych: Intracranial hemorrhage Pial AVM Subarachnoid hemorrhage Mild Encephalopathy CSF leak?? - status post AVM embolization followed by suboccipital craniotomy for hematoma evacuation and AVM resection at [facility]. Postoperatively, he was slow to wake up and a head CT showed herniation. - Neurosurgery following, Dr. Flowers. Status post right ventriculostomy 06/03, replaced 06/12 due to Hermila CSF infection. - Keppra 500 mg twice a day for seizure prophylaxis - CT of head 06/02 revealed partial occipital craniotomy with coiling. - EEG 06/03 read as normal. No seizure activity. - Interactive Respiratory: - NC to maintain saturations greater than equal to 92% - Incentive spirometry while awake when he'll cooperate. - he needs to mobilize today to prevent deconditioning. this will be difficult given his agitated delirium, but we will attempt today. Cardiovascular: Hypertension - Metoprol currently 12.5 milligrams by mouth twice a day. - continue Telemetry Renal: - Strict I/Os - attempt euvolemia - Keep well hydrated during Ampho B infusion. FEN/GI: Acute protein calorie malnutritionmild Hypernatremia Diarrhea- resolved intravascular volume depletion - Currently on Jevity 1.5 goal 50 cc an hour - increase free water 200 cc every 6 - ICU electrolyte protocol - Pepcid for GI prophylaxis - Colace/MiraLAX for bowel regimen held with diarrhea, this is now resolved. if no BM today will restart. - C. difficile negative - Check prealbumin -> 19, better than expected, continue TFs as ordered. Added benepro bid. Heme Normocytic anemia - Does not meet transfusion triggers at this time. - Daily CBC ID Hermila Ventriculitis Enterococcus Bacteremia - CSF and blood positive Pertinent cultures 06/03 - CSF - no organisms, NGTD 06/06: Blood Enterococcus -> vancomycin 06/10 06/10: CSF -> Hermila will discuss with ID, may need to repeat surveillance CSF cultures. Continue AmphoB intra-ventric and IV Continue Vanc IV (anticipated 14 day course, suspect end date 06/24). 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 Will need long-term antifungal therapy. Continue hydration today. OOB with excercise to prevent deconditioning. Problem Qualifiers (1) UTI (urinary tract infection): (2) Cerebellar hemorrhage: Qualified Code: I61.4 - Nontraumatic intracerebral hemorrhage of cerebellum, unspecified laterality Orlando Ibrahim MD Jun 16, 2016 07:55
[2016-06-16] MEDS: THIAMINE INJ 100 MG in SODIUM CHLORIDE 0.9% INJ 100 ML IV SCH (08:09)
[2016-06-16] MEDS: levETIRAcetam 500 MG TAB PO SCH ×2 (08:09→20:44)
[2016-06-16] MEDS: QUEtiapine FUMARATE 25 MG TAB PO SCH ×2 (08:09→20:44)
[2016-06-16] MEDS: FAMOTIDINE 20 MG TAB NG SCH ×2 (08:09→20:44)
[2016-06-16] MEDS: METOPROLOL TARTRATE 25 MG TAB PO SCH ×2 (08:10→20:44)
[2016-06-16] MEDS: HEPARIN SODIUM - SQ 10,000 UNITS/ML VIAL SQ SCH ×2 (08:10→20:43)
[2016-06-16] MEDS: diphenhydrAMINE HCL 50 MG/ML VIAL IV PRN (08:10)
[2016-06-16] MEDS: HYDROCORTISONE SOD SUCCINATE 100 MG VIAL IV PRN (08:10)
[2016-06-16] MEDS: SODIUM CHLORIDE 0.9% FLUSH 5 ML FLUSH IV FLUSH SCH ×2 (08:11→20:46)
[2016-06-16] MEDS: AMPHOTERICIN B 50 MG OTHER SCH (08:55)
[2016-06-16] MEDS: MORPHINE SULFATE 4 MG/ML INJ IV PUSH PRN (09:43)
--- NOTE | 2016-06-16 10:58 | HHI.NSPN ---
(Anusha Hastings) The exam, history, and the medical decision-making described in the above note were completed with the assistance of the mid-level provider. I reviewed and agree with the findings presented. I attest that I had a [id number] encounter with the patient on the same day, and personally performed and documented my assessment and findings in the medical record. 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 The patient underwent placement of right frontal external ventricular drain for acute hydrocephalus and was transferred to [facility] for further treatment of the AVM by embolization followed by suboccipital craniotomy for hematoma evacuation, and AVM resection at [facility] . Postoperatively, he was slow to wake up, his EVD was Clamped and removed at [facility] and his mental status was improving. He had UTI and agitation. He was started on Rocephin and Seroquel. The patient was being transferred back to [facility] due to confusion and CSF leak. 06/04: s/p placement of ventriculostomy drain. no further leaking noted from posterior fossa wound, there has been scab formation also. 06/05: no wound leak seen 06/06: appears more awake today, wound dry, no evidence of CSF leaking overnight 06/09: wound dry, sitting up in chair eating breakfast 06/10: follow up CT Brain reviewed 06/11: prelim CSF testing shows elevated WBCs, proteins with low glucose, 06/12: CSF showing fungal growth, intraventricular ampho b ordered 06/13: EVD draining, no significant changes to neuro checks overnight 06/16: neuro checks stable overnight, alert, pleasantly confused today (Anusha Hastings) Labs, Micro, & Vital Signs Results Date Time Temp Pulse Resp B/P Pulse Ox O2 Delivery O2 Flow Rate FiO2 06/16/16 07:00 98 Room Air 12/12/16 07:00 98 06/16/16 06:00 85 06/16/16 04:00 98.2 76 13 89/57 100 06/16/16 04:00 76 06/16/16 02:00 78 06/16/16 00:00 80 06/16/16 00:00 97.8 80 12 106/66 100 06/15/16 20:19 98 21 06/15/16 20:00 98.2 73 13 107/71 97 06/15/16 20:00 Room Air 06/15/16 18:00 92 06/15/16 16:00 100.2 92 12 137/92 99 06/15/16 16:00 92 06/15/16 14:00 76 06/15/16 12:00 98.1 68 14 89/55 100 06/15/16 12:00 68 06/16/16 06:59 Intake Total 3529 ml Output Total 1297 ml Balance 2232 ml Constitutional Vital Signs Date Time Temp Pulse Resp B/P Pulse Ox O2 Delivery O2 Flow Rate FiO2 06/16/16 07:00 98 Room Air 06/16/16 07:00 98 06/16/16 06:00 85 06/16/16 04:00 98.2 76 13 89/57 100 06/16/16 04:00 76 06/16/16 02:00 78 06/16/16 00:00 80 06/16/16 00:00 97.8 80 12 106/66 100 06/15/16 20:19 98 21 06/15/16 20:00 98.2 73 13 107/71 97 06/15/16 20:00 Room Air 06/15/16 18:00 92 06/15/16 16:00 100.2 92 12 137/92 99 06/15/16 16:00 92 06/15/16 14:00 76 06/15/16 12:00 98.1 68 14 89/55 100 06/15/16 12:00 68 06/16/16 06:59 Intake Total 3529 ml Output Total 1297 ml Balance 2232 ml (Anusha Hastings) Review of Systems/Exam Exam He is alert, in no apparent distress, pleasantly confused. Speech fluent. Ventriculostomy drain in place, open at 0 cm H20. CSF is cloudy and slightly xanthochromic facial appears symmetric at rest moves grossly all four extremities, on UE restraints with mittens (Anusha Hastings) Medications Current Medications Current Medications Medications (Trade) Dose Ordered Sig/Paula Route PRN Reason Start Time Stop Time Status Last Admin Dose Admin Naloxone HCl (Narcan Inj) 0.4 mg UNSCH PRN IV SEE LABEL COMMENTS 05/29/16 15:00 Acetaminophen/ Butalbital/ Caffeine (Fioricet 325-50-40) 1 tab Q6H PRN PO PAIN GREATER THAN 5 or headach 05/29/16 15:00 06/16/16 08:09 Heparin Sodium (Porcine) (Heparin Inj) 5,000 units Q12HR SQ 05/29/16 21:00 06/16/16 08:10 Levetriacetam (Keppra) 500 mg Q12HR PO 05/29/16 21:00 06/16/16 08:09 Morphine Sulfate (Morphine Inj) 2 mg Q3H PRN IV PUSH BREAKTHROUGH PAIN 06/02/16 10:30 06/16/16 09:43 Diphenhydramine HCl (Benadryl 2% Cream) 1 applic TID PRN TOPICAL ITCHING 06/02/16 11:15 IV Flush (NS Flush) 2 ml UNSCH PRN IV FLUSH FLUSH AFTER USING IV ACCESS 06/03/16 09:45 IV Flush (NS Flush) 2 ml BID IV FLUSH 06/03/16 21:00 06/16/16 08:11 Acetaminophen (Tylenol) 650 mg Q6H PRN PO FEVER >100F 06/03/16 09:45 06/15/16 16:40 Ondansetron HCl (Zofran Inj) 4 mg Q6H PRN IV NAUSEA OR VOMITING 06/03/16 09:45 06/15/16 21:27 Docusate Sodium (Colace) 100 mg BID PO 06/03/16 21:00 Hold 06/05/16 20:35 Sennosides (Senokot) 17.2 mg Q12H PRN PO CONSTIPATION 06/03/16 09:45 Hold Miscellaneous Information 1 Q361D XX 06/03/16 09:45 Chlorhexidine Gluconate (Chlorhexidine 2% Cloth) Taper DAILY@04 TOP 06/04/16 04:00 05/31/17 03:59 06/13/16 04:00 Chlorhexidine Gluconate 3 pack 3 pack UNSCH PRN TOP HYGIENIC CARE 06/03/16 09:45 Thiamine HCl/ Sodium Chloride (Thiamine Inj/NS Inj) 101 ml @ 101 mls/hr DAILY IV 06/04/16 09:00 06/16/16 08:09 Polyethylene Glycol 17 gm 17 gm DAILY PO 06/04/16 09:00 Hold Sodium Chloride (NS 1000 ml Inj) 1,000 ml @ 100 mls/hr Q10H IV 06/03/16 21:16 Hold 06/05/16 22:23 Famotidine (Pepcid) 20 mg BID NG 06/04/16 09:00 06/16/16 08:09 Metoprolol Tartrate (Lopressor) 12.5 mg Q12HR PO 06/05/16 21:00 06/16/16 08:10 Quetiapine Fumarate (SEROquel) 25 mg BID PO 06/06/16 09:00 06/16/16 08:09 Loperamide HCl 2 mg 2 mg UNSCH PRN TUBE DIARRHEA 06/06/16 16:15 06/07/16 21:24 Pharmacy Profile Note (Vancomycin Consult Pharmacy) 0 ml @ 0 mls/hr UNSCH OTHER 06/10/16 10:15 Diphenhydramine HCl (Benadryl Inj) 25 mg Q24H PRN IV PRE-MED PRIOR TO AMPHOTERCIN B 06/11/16 17:00 06/16/16 08:10 Hydrocortisone Sodium Succinate 25 mg 25 mg Q24H PRN IV PRE-MED PRIOR TO AMPHOTERCIN B 06/11/16 17:00 06/16/16 08:10 Amphotericin B Liposome 280 mg/ Dextrose 280 ml @ 125 mls/hr Q24H IV 06/12/16 15:00 06/15/16 14:45 Potassium Chloride 100 ml @ 50 mls/hr Q2H PRN IV For Potassium 2.8 - 3.2 mEq/L 06/12/16 07:15 Potassium Chloride (KCl 20 Meq Premix Inj) 100 ml @ 50 mls/hr Q2H PRN IV For Potassium 2.8 - 3.2 mEq/L 06/12/16 07:15 Potassium Chloride 40 meq 40 meq UNSCH PRN PO/TUBE For Potassium 3.3 - 3.5 mEq/L 06/12/16 07:15 06/16/16 06:34 Potassium Chloride 100 ml @ 25 mls/hr UNSCH PRN IV For Potassium 3.3 - 3.5 mEq/L 06/12/16 07:15 Potassium Chloride 100 ml @ 50 mls/hr Q2H PRN IV For Potassium 3.3 - 3.5 mEq/L 06/12/16 07:15 Magnesium Sulfate/ Sodium Chloride (Magnesium Sulfate Inj/NS Inj) 100 ml @ 50 mls/hr UNSCH PRN IV For Magnesium 0.9 - 1.1 mg/dL 06/12/16 07:15 Magnesium Oxide 800 mg 800 mg UNSCH PRN PO For Magnesium 1.2 - 1.6 mg/dL 06/12/16 07:15 Magnesium Sulfate/ Sodium Chloride (Magnesium Sulfate Inj/NS Inj) 100 ml @ 50 mls/hr UNSCH PRN IV For Magnesium 1.2 - 1.6 mg/dL 06/12/16 07:15 Potassium Phosphate 2000 mg 2,000 mg Q4H PRN PO For Phosphorus < 2.5 mg/dL 06/12/16 07:15 Sodium Phosphate/ Sodium Chloride (Sodium Phosphate Inj/NS 250 ml Inj) 250 ml @ 42 mls/hr UNSCH PRN IV For Phosphorus < 2.5 mg/dL 06/12/16 07:15 Potassium Chloride (KCl 40 Meq/30 ml Liq) 40 meq UNSCH PRN PO/TUBE SEE LABEL COMMENTS 06/12/16 07:15 Potassium Phosphate 2000 mg 2,000 mg UNSCH PRN PO/TUBE SEE LABEL COMMENTS 06/12/16 07:15 Potassium Phosphate/Sodium Chloride (Potassium Phosphate Inj/NS 250 ml Inj) 260 ml @ 42 mls/hr UNSCH PRN IV SEE LABEL COMMENTS 06/12/16 07:15 Amphotericin B 1 mg 1 mg Q24H OTHER 06/13/16 09:00 06/16/16 08:55 Vancomycin HCl/ Sodium Chloride (Vancomycin Inj/ NS 250 ml Inj) 250 ml @ 250 mls/hr Q12H IV 06/15/16 00:00 06/15/16 23:39 Miscellaneous Information SPECIFIC LAB TO BE FERNY... ONCE ONCE XX 06/16/16 11:45 06/16/16 11:46 Water (Free Water) 200 ml Q6HR G-TUBE 06/16/16 12:00 (Anusha Hastings) Medical Decision Making MDM Remarks 55 y/o male s/p posterior fossa craniectomy for evacuation of cerebellar bleed due to AVM with embolization at [facility] s/p ventriculostomy placement for CSF leak ventriculitis with growth of Hermila, replacement of ventriculostomy drain , started intraventricular Ampho B tx 06/12/16 (Anusha Hastings) Plan Plan Remarks daily intraventricular administration ampho b per ID keep EVD draining at 0 cm H20 ok therapy, ok OOB with EVD unclamped Dose 5 Intraventricular Ampho B given today per Dr. Babin's request to repeat CSF labs ordered (cell count, protein, glucose, gram stain culture, fungus culture) (Anusha Hastings) Anusha Hastings Jun 16, 2016 10:58 John Flowers MD Jun 17, 2016 14:50
[2016-06-16] MEDS ORDERED: PHARMACY ORDERED LAB XX ONE (11:45)
[2016-06-16] MEDS: VANCOMYCIN 1,000 MG/NS 250 ML IV SCH ×2 (12:47)
[2016-06-16] MEDS: WATER IV SCH ×2 (15:14)
[2016-06-16] MEDS: DEXTROSE 5% IV SCH ×2 (15:14)
[2016-06-16] MEDS: AMPHOTERICIN B LIPOSOME IV SCH ×2 (15:14)
--- NOTE | 2016-06-16 15:34 | HHI.IDPN ---
Subjective Subjective Remarks is a 55 y/o CM with AVM s/p coiling. ID following for Hermila ventriculitis and E.faecalis bacteremia. Overnight events reviewed. Occ low grade fevers 100 F likely Vanco related. No rash No diarrhea Awake, answers questions sometimes. No seizures. Antibiotics Vanco IV Ampho Intra Venous Ampho Intra Ventricular. Lines Line sites with no e/o infection Past Medical History AVM s/p coil Allergies: Coded Allergies: Oxycodone (Unverified Allergy, Intermediate, ITCHY, 01/16/16) Objective . Vital Signs Date Time Temp Pulse Resp B/P Pulse Ox O2 Delivery O2 Flow Rate FiO2 06/16/16 14:00 96 06/16/16 12:00 99.2 94 18 133/89 98 06/16/16 12:00 94 06/16/16 10:00 84 06/16/16 08:00 98.2 90 14 114/71 99 06/16/16 08:00 90 06/16/16 07:00 98 Room Air 06/16/16 07:00 98 06/16/16 06:00 85 06/16/16 04:00 98.2 76 13 89/57 100 06/16/16 04:00 76 06/16/16 02:00 78 06/16/16 00:00 80 06/16/16 00:00 97.8 80 12 106/66 100 06/15/16 20:19 98 21 06/15/16 20:00 98.2 73 13 107/71 97 06/15/16 20:00 Room Air 06/15/16 18:00 92 06/15/16 16:00 100.2 92 12 137/92 99 06/15/16 16:00 92 06/15/16 06/15/16 06/16/16 15:00 23:00 07:00 Intake Total 1809 ml 807 ml 913 ml Output Total 463 ml 469 ml 365 ml Balance 1346 ml 338 ml 548 ml IV Total 1435 ml 423 ml 319 ml Tube Feeding 214 ml 324 ml 364 ml Tube Irrigant 60 ml 60 ml 30 ml Other 100 ml 200 ml Output Urine Total 450 ml 425 ml 325 ml Tube Feeding Residual Discard 0 ml Drainage Total 13 ml 44 ml 40 ml # Bowel Movements 0 0 0 . Laboratory Tests Test 06/15/16 06/16/16 03:31 03:18 White Blood Count 13.9 TH/MM3 12.0 TH/MM3 Red Blood Count 3.47 MIL/MM3 3.21 MIL/MM3 Hemoglobin 10.4 GM/DL 9.7 GM/DL Hematocrit 31.2 % 29.2 % Mean Corpuscular Volume 89.9 FL 90.8 FL Mean Corpuscular Hemoglobin 29.8 PG 30.1 PG Mean Corpuscular Hemoglobin 33.1 % 33.1 % Concent Red Cell Distribution Width 13.9 % 13.9 % Platelet Count 383 TH/MM3 376 TH/MM3 Mean Platelet Volume 8.2 FL 8.3 FL Neutrophils (%) (Auto) 87.2 % 80.1 % Lymphocytes (%) (Auto) 7.1 % 11.7 % Monocytes (%) (Auto) 4.5 % 5.9 % Eosinophils (%) (Auto) 0.5 % 1.4 % Basophils (%) (Auto) 0.7 % 0.9 % Neutrophils # (Auto) 12.1 TH/MM3 9.6 TH/MM3 Lymphocytes # (Auto) 1.0 TH/MM3 1.4 TH/MM3 Monocytes # (Auto) 0.6 TH/MM3 0.7 TH/MM3 Eosinophils # (Auto) 0.1 TH/MM3 0.2 TH/MM3 Basophils # (Auto) 0.1 TH/MM3 0.1 TH/MM3 CBC Comment DIFF FINAL DIFF FINAL Differential Comment Laboratory Tests Test 06/15/16 06/16/16 03:31 03:18 Sodium Level 144 MEQ/L 145 MEQ/L Potassium Level 3.8 MEQ/L 3.5 MEQ/L Chloride Level 106 MEQ/L 107 MEQ/L Carbon Dioxide Level 30.3 MEQ/L 33.4 MEQ/L Anion Gap 8 MEQ/L 5 MEQ/L Blood Urea Nitrogen 28 MG/DL 25 MG/DL Creatinine 0.99 MG/DL 0.99 MG/DL Estimat Glomerular Filtration 79 ML/MIN 79 ML/MIN Rate Random Glucose 118 MG/DL 113 MG/DL Calcium Level 9.0 MG/DL 8.6 MG/DL Imaging Last Impressions Head CT 06/10/16 0600 Signed Impressions: Service Date/Time: Friday, June 10, 2016 05:01 - CONCLUSION: 1. 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 Locules of air within the fluid are decreasing since June 08. Right frontal ventriculostomy tube remains present with stable ventricular size. No hydrocephalus. Kirk Cortes MD Physical Exam GENERAL: Thin built, well-developed patient, in no apparent distress. SKIN: No rashes. Cool and dry. HEAD: Surgical site with no e/o infection. Ventric site with no gross e/o infection. EYES: Pupils equal round and reactive. Extraocular motions intact. ENT: Nose without bleeding, purulent drainage or septal hematoma. Throat without erythema, tonsillar hypertrophy or exudate. Uvula midline. Airway patent. NECK: Trachea midline.Supple, nontender, neck not very supple. Some stiffness towards end on flexion. ? patient reliability. CARDIOVASCULAR: Regular rate and rhythm. No murmur appreciated. RESPIRATORY: Clear to auscultation. Breath sounds equal bilaterally. No wheezes , rales, or rhonchi. GASTROINTESTINAL: Abdomen soft, non-tender, nondistended. MUSCULOSKELETAL: Extremities without clubbing, cyanosis, or edema. No joint tenderness, effusion, or edema noted. NEUROLOGICAL: Awake and alert. Responds to questions not appropriate all the times. Moves all 4 extremities. Psych: cooperative IV line sites with no e/o infection. Assessment & Plan Remarks Hermila albicans ventriculitis. MRI cannot be performed due to coils. CSF fluid was very cloudy and had fungal sediments. Patient candidate for [employer] shunt in near future. E.faecalis bacteremia: No central lines or PIVs. SIRS/Sepsis now controlled since Vanco IV started. AVM was transferred to [facility] for further treatment of the AVM by embolization followed by suboccipital craniotomy for hematoma evacuation and AVM resection. CSF leak and hydrocephalus s/p Rt sima hole and Ventriculostomy catheter placement 06/03/2016. Recs: Intra Venous amphotericin Liposomal. Follow K,Mg, Phos, Cr daily while patient on Amphotericin Liposomal IV Continue IV Vanco target trough 15-20 (06/24/16) Follow cultures Follow clinically Hermila albicans sent to [facility] for susceptibility. Continue Benadryl IV and Hydrocortisone IV as premedication for Amphotericin IV. d/w Neurosurgery KISHA Hastings to obtain CSF studies: 1. CSF glucose, WBC, protein 2. CSF gram stain and culture. 3. CSF fungal stain and culture. Jenifer Babin MD Jun 16, 2016 15:34
[2016-06-16] MEDS: ACETAMINOPHEN 325 MG TAB PO PRN (17:04)
[2016-06-16 18:20] LABS: GROSS BLOOD TUBE #1 TRACE (0); SUPERNATE COLOR TUBE #1 XANTHOCHROMIC (CLEAR)
[2016-06-16 18:21] LABS: CSF LYMPHOCYTES 7 %; CSF MONOCYTES 11 %; CSF NEUTROPHILS 82 %; WBC TUBE #1 1638 /MM3 (0-10)
[2016-06-16] MEDS: DOCUSATE SODIUM 100 MG CAP PO SCH (20:43)
[2016-06-16] MEDS: SENNOSIDES 8.6 MG TAB PO SCH (20:44)
[2016-06-16] MEDS: ONDANSETRON HCL 4 MG/2 ML VIAL IV PRN (21:24)
[2016-06-17] VITALS (12 sets, daily range): BP systolic 102–145; BP diastolic 67–86; PULSE 72–110; RESP 12–20; TEMP 98.6–100.5; O2SAT 97–100
[2016-06-17] MEDS: CHLORHEXIDINE GLUCONATE 2 % 1 PACK (2 CLOTHS) TOP SCH (04:00)
[2016-06-17 04:30] LABS: HEMATOCRIT 32.1 % (39.0-51.0); MEAN CELL VOLUME 89.7 FL (80.0-100.0); MEAN CORPUSCULAR HGB CONC 33.4 % (32.0-36.0); PLATELET COUNT 410 TH/MM3 (150-450); RED BLOOD COUNT 3.58 MIL/MM3 (4.50-5.90); RED CELL DISTRIBUTION WIDTH 13.7 % (11.6-17.2); REVIEW FLAG FINAL; WHITE BLOOD COUNT 12.3 TH/MM3 (4.0-11.0)
[2016-06-17 04:36] LABS: BICARBONATE 32.6 MEQ/L (21.0-32.0); POTASSIUM 3.9 MEQ/L (3.5-5.1)
[2016-06-17] MEDS: VANCOMYCIN 1,000 MG/NS 250 ML IV SCH ×2 (04:48)
[2016-06-17] MEDS: FREE WATER G-TUBE SCH ×3 (04:48→18:16)
[2016-06-17] MEDS: FAMOTIDINE 20 MG TAB NG SCH ×2 (09:20→20:06)
[2016-06-17] MEDS: AMPHOTERICIN B 50 MG OTHER SCH (09:20)
[2016-06-17] MEDS: DOCUSATE SODIUM 100 MG CAP PO SCH ×2 (09:20→20:06)
[2016-06-17] MEDS: METOPROLOL TARTRATE 25 MG TAB PO SCH ×2 (09:21→20:05)
[2016-06-17] MEDS: levETIRAcetam 500 MG TAB PO SCH ×2 (09:21→20:06)
[2016-06-17] MEDS: HEPARIN SODIUM - SQ 10,000 UNITS/ML VIAL SQ SCH ×2 (09:21→20:05)
[2016-06-17] MEDS: SENNOSIDES 8.6 MG TAB PO SCH ×2 (09:21→20:05)
[2016-06-17] MEDS: THIAMINE INJ 100 MG in SODIUM CHLORIDE 0.9% INJ 100 ML IV SCH (09:22)
[2016-06-17] MEDS: SODIUM CHLORIDE 0.9% FLUSH 5 ML FLUSH IV FLUSH SCH ×2 (09:22→20:06)
--- NOTE | 2016-06-17 09:58 | HHI.NSPN ---
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 The patient underwent placement of right frontal external ventricular drain for acute hydrocephalus and was transferred to [facility] for further treatment of the AVM by embolization followed by suboccipital craniotomy for hematoma evacuation, and AVM resection at [facility] . Postoperatively, he was slow to wake up, his EVD was Clamped and removed at [facility] and his mental status was improving. He had UTI and agitation. He was started on Rocephin and Seroquel. The patient was being transferred back to [facility] due to confusion and CSF leak. 06/04: s/p placement of ventriculostomy drain. no further leaking noted from posterior fossa wound, there has been scab formation also. 06/05: no wound leak seen 06/06: appears more awake today, wound dry, no evidence of CSF leaking overnight 06/09: wound dry, sitting up in chair eating breakfast 06/10: follow up CT Brain reviewed 06/11: prelim CSF testing shows elevated WBCs, proteins with low glucose, 06/12: CSF showing fungal growth, intraventricular ampho b ordered 06/13: EVD draining, no significant changes to neuro checks overnight 06/16: neuro checks stable overnight, alert, pleasantly confused today 06/17: intermittently confused, working with PT, repeat CSF cx pending (Anusha Hastings) Labs, Micro, & Vital Signs Results Date Time Temp Pulse Resp B/P Pulse Ox O2 Delivery O2 Flow Rate FiO2 06/17/16 07:00 99 Room Air 06/17/16 06:00 102 06/17/16 04:00 102 06/17/16 04:00 98.6 102 15 143/86 98 06/17/16 02:00 90 06/17/16 00:00 98.7 81 12 102/67 99 06/17/16 00:00 88 06/16/16 22:00 85 06/16/16 20:00 98.7 82 14 120/83 99 06/16/16 20:00 82 06/16/16 19:00 99 Room Air 06/16/16 18:00 98 06/16/16 16:00 101.7 106 18 131/80 99 06/16/16 16:00 106 06/16/16 14:00 96 06/16/16 12:00 99.2 94 18 133/89 98 06/16/16 12:00 94 06/16/16 10:00 84 06/17/16 07:00 Intake Total 3195 ml Output Total 1886 ml Balance 1309 ml Constitutional Vital Signs Date Time Temp Pulse Resp B/P Pulse Ox O2 Delivery O2 Flow Rate FiO2 06/17/16 07:00 99 Room Air 06/17/16 06:00 102 06/17/16 04:00 102 06/17/16 04:00 98.6 102 15 143/86 98 06/17/16 02:00 90 06/17/16 00:00 98.7 81 12 102/67 99 06/17/16 00:00 88 06/16/16 22:00 85 06/16/16 20:00 98.7 82 14 120/83 99 06/16/16 20:00 82 06/16/16 19:00 99 Room Air 06/16/16 18:00 98 06/16/16 16:00 101.7 106 18 131/80 99 06/16/16 16:00 106 06/16/16 14:00 96 06/16/16 12:00 99.2 94 18 133/89 98 06/16/16 12:00 94 06/16/16 10:00 84 06/17/16 07:00 Intake Total 3195 ml Output Total 1886 ml Balance 1309 ml (Anusha Hastings) Review of Systems/Exam Exam He is alert, in no apparent distress, pleasantly confused. Speech fluent. follows few simple commands. Ventriculostomy drain in place, open at 0 cm H20. CSF is cloudy and slightly xanthochromic facial appears symmetric at rest moves grossly all four extremities, sitting up on edge of bed with PT (Anusha Hastings) Medications Current Medications Current Medications Medications (Trade) Dose Ordered Sig/Paula Route PRN Reason Start Time Stop Time Status Last Admin Dose Admin Naloxone HCl (Narcan Inj) 0.4 mg UNSCH PRN IV SEE LABEL COMMENTS 05/29/16 15:00 Acetaminophen/ Butalbital/ Caffeine (Fioricet 325-50-40) 1 tab Q6H PRN PO PAIN GREATER THAN 5 or headach 05/29/16 15:00 06/16/16 08:09 Heparin Sodium (Porcine) (Heparin Inj) 5,000 units Q12HR SQ 05/29/16 21:00 06/17/16 09:21 Levetriacetam (Keppra) 500 mg Q12HR PO 05/29/16 21:00 06/17/16 09:21 Morphine Sulfate (Morphine Inj) 2 mg Q3H PRN IV PUSH BREAKTHROUGH PAIN 06/02/16 10:30 06/16/16 09:43 Diphenhydramine HCl (Benadryl 2% Cream) 1 applic TID PRN TOPICAL ITCHING 06/02/16 11:15 IV Flush (NS Flush) 2 ml UNSCH PRN IV FLUSH FLUSH AFTER USING IV ACCESS 06/03/16 09:45 IV Flush (NS Flush) 2 ml BID IV FLUSH 06/03/16 21:00 06/17/16 09:22 Acetaminophen (Tylenol) 650 mg Q6H PRN PO FEVER >100F 06/03/16 09:45 06/16/16 17:04 Ondansetron HCl (Zofran Inj) 4 mg Q6H PRN IV NAUSEA OR VOMITING 06/03/16 09:45 06/16/16 21:24 Docusate Sodium (Colace) 100 mg BID PO 06/03/16 21:00 06/17/16 09:20 Sennosides (Senokot) 17.2 mg BID PO 06/03/16 09:45 06/17/16 09:21 Miscellaneous Information 1 Q361D XX 06/03/16 09:45 Chlorhexidine Gluconate (Chlorhexidine 2% Cloth) Taper DAILY@04 TOP 06/04/16 04:00 05/31/17 03:59 06/17/16 04:00 Chlorhexidine Gluconate 3 pack 3 pack UNSCH PRN TOP HYGIENIC CARE 06/03/16 09:45 Thiamine HCl/ Sodium Chloride (Thiamine Inj/NS Inj) 101 ml @ 101 mls/hr DAILY IV 06/04/16 09:00 06/17/16 09:22 Polyethylene Glycol 17 gm 17 gm DAILY PO 06/04/16 09:00 Hold Sodium Chloride (NS 1000 ml Inj) 1,000 ml @ 100 mls/hr Q10H IV 06/03/16 21:16 Hold 06/05/16 22:23 Famotidine (Pepcid) 20 mg BID NG 06/04/16 09:00 06/17/16 09:20 Metoprolol Tartrate (Lopressor) 12.5 mg Q12HR PO 06/05/16 21:00 06/17/16 09:21 Quetiapine Fumarate (SEROquel) 25 mg BID PO 06/06/16 09:00 06/16/16 20:44 Loperamide HCl 2 mg 2 mg UNSCH PRN TUBE DIARRHEA 06/06/16 16:15 06/07/16 21:24 Pharmacy Profile Note (Vancomycin Consult Pharmacy) 0 ml @ 0 mls/hr UNSCH OTHER 06/10/16 10:15 Diphenhydramine HCl (Benadryl Inj) 25 mg Q24H PRN IV PRE-MED PRIOR TO AMPHOTERCIN B 06/11/16 17:00 06/16/16 08:10 Hydrocortisone Sodium Succinate 25 mg 25 mg Q24H PRN IV PRE-MED PRIOR TO AMPHOTERCIN B 06/11/16 17:00 06/16/16 08:10 Amphotericin B Liposome 280 mg/ Dextrose 280 ml @ 125 mls/hr Q24H IV 06/12/16 15:00 06/16/16 15:14 Potassium Chloride 100 ml @ 50 mls/hr Q2H PRN IV For Potassium 2.8 - 3.2 mEq/L 06/12/16 07:15 Potassium Chloride (KCl 20 Meq Premix Inj) 100 ml @ 50 mls/hr Q2H PRN IV For Potassium 2.8 - 3.2 mEq/L 06/12/16 07:15 Potassium Chloride 40 meq 40 meq UNSCH PRN PO/TUBE For Potassium 3.3 - 3.5 mEq/L 06/12/16 07:15 06/16/16 06:34 Potassium Chloride 100 ml @ 25 mls/hr UNSCH PRN IV For Potassium 3.3 - 3.5 mEq/L 06/12/16 07:15 Potassium Chloride 100 ml @ 50 mls/hr Q2H PRN IV For Potassium 3.3 - 3.5 mEq/L 06/12/16 07:15 Magnesium Sulfate/ Sodium Chloride (Magnesium Sulfate Inj/NS Inj) 100 ml @ 50 mls/hr UNSCH PRN IV For Magnesium 0.9 - 1.1 mg/dL 06/12/16 07:15 Magnesium Oxide 800 mg 800 mg UNSCH PRN PO For Magnesium 1.2 - 1.6 mg/dL 06/12/16 07:15 Magnesium Sulfate/ Sodium Chloride (Magnesium Sulfate Inj/NS Inj) 100 ml @ 50 mls/hr UNSCH PRN IV For Magnesium 1.2 - 1.6 mg/dL 06/12/16 07:15 Potassium Phosphate 2000 mg 2,000 mg Q4H PRN PO For Phosphorus < 2.5 mg/dL 06/12/16 07:15 Sodium Phosphate/ Sodium Chloride (Sodium Phosphate Inj/NS 250 ml Inj) 250 ml @ 42 mls/hr UNSCH PRN IV For Phosphorus < 2.5 mg/dL 06/12/16 07:15 Potassium Chloride (KCl 40 Meq/30 ml Liq) 40 meq UNSCH PRN PO/TUBE SEE LABEL COMMENTS 06/12/16 07:15 Potassium Phosphate 2000 mg 2,000 mg UNSCH PRN PO/TUBE SEE LABEL COMMENTS 06/12/16 07:15 Potassium Phosphate/Sodium Chloride (Potassium Phosphate Inj/NS 250 ml Inj) 260 ml @ 42 mls/hr UNSCH PRN IV SEE LABEL COMMENTS 06/12/16 07:15 Amphotericin B (Amphotericin B Conv Inj) 1 mg Q24H OTHER 06/13/16 09:00 06/17/16 09:20 Water 200 ml 200 ml Q6HR G-TUBE 06/16/16 12:00 06/17/16 04:48 Vancomycin HCl/ Sodium Chloride (Vancomycin Inj/ NS 250 ml Inj) 250 ml @ 250 mls/hr Q18H IV 06/17/16 06:00 06/17/16 04:48 Miscellaneous Information SPECIFIC LAB TO BE DRAWN:VANCOMYCIN DATE TO BE DRChip.. ONCE ONCE XX 06/19/16 11:45 06/19/16 11:46 (Anusha Hastings) Medical Decision Making MDM Remarks 55 y/o male s/p posterior fossa craniectomy for evacuation of cerebellar bleed due to AVM with embolization at [facility] s/p ventriculostomy placement for CSF leak ventriculitis with growth of Hermila, replacement of ventriculostomy drain , started intraventricular Ampho B tx 06/12/16 (Anusha Hastings) Plan Plan Remarks cont daily intraventricular administration ampho b per ID keep EVD draining at 0 cm H20 follow up CSF cultures 06/16 Dose 6 Intraventricular Ampho B given today (Anusha Hastings) Attending Statement The exam, history, and the medical decision-making described in the above note were completed with the assistance of the mid-level provider. I reviewed and agree with the findings presented. I attest that I had a [id number] encounter with the patient on the same day, and personally performed and documented my assessment and findings in the medical record. (John Flowers MD) Anusha Hastings Jun 17, 2016 09:58 John Flowers MD Jun 17, 2016 14:55
[2016-06-17] MEDS: QUEtiapine FUMARATE 25 MG TAB PO SCH ×2 (11:10→20:06)
--- NOTE | 2016-06-17 11:46 | HHI.CCPN ---
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 The patient underwent placement of right frontal external ventricular drain for acute hydrocephalus and was transferred to [facility] for further treatment of the AVM by embolization followed by suboccipital craniotomy for hematoma evacuation and AVM resection. Postoperatively, he was slow to wake up, his EVD was Clamped and removed and his mental status was improving. Other complications include the UTI and agitation. He was started on Rocephin and Seroquel. The patient is being transferred back to [facility] due to confusion and questionable CSF leak. 06/03: Noted AVM embolization followed by suboccipital craniotomy for hematoma evacuation and AVM resection. Postoperatively, he was slow to wake up and a head CT showed herniation.. Noted CT last night revealed status post partial occipital craniotomy changes with Coils. Currently afebrile. Arousable and will follow commands but won't open eyes. Noted to have leaking from the occipital region plan to go back to or for suturing with neurosurgery. 06/04: Tmax 99. 3 problems overnight. Received 1 dose of Cafergot overnight for headache. Noted placement of a right ventriculostomy secondary to CSF leak yesterday. Patient is arousable. Tolerating tube feeding currently. 06/05: Afebrile. Mentation somewhat improved. Positive BM 4. Tolerating tube feeding. Will follow commands. Answers questions appropriately. 06/06: Afebrile. Sitting up in chair yesterday no acute distress. Positive BM 8 yesterday. Tolerating tube feeding. Follows commands. Still confused but answers questions appropriately. 06/07: Tmax 99. Currently on 2 L nasal cannula. Awake and alert to person only. No more CSF leak overnight. One to 2 word answers per his norm. 8 bowel movements negative C. difficile. 06/08: Tmax 99. Currently on room air. Awake and alert to person. No CSF leak. For bowel movements overnight. Noted that ventricular drain currently at 0 cm H2O 06/09: Tmax 102.2. WBC 12,000. Tolerating TFs. 06/10: Tmax 99.7. WBC declining. CT Head no change, some resolution of air in posterior fossa. TFs continue. 3/4 bottles blood positive for GPC. 06/11: Budding yeast, pseudohyphae in CSF. Enterococcus in blood. Mentation unchanged. ID consulted. 06/12: Started on Liposomal Ampho B, premedicated for mild reaction. Mentation unchanged. 06/13: Tolerating Amph B, headache only complaint. 06/14: Tolerating anti-fungal agent infused through ventric. ID guiding therapy. 06/15: A little dry - hydrate with NS bolus. Continue TFs. 06/16: continues to clinically appear slightly volume deplete. increasing free water to 200 q6h per tube. otherwise no significant change. continues to have agitated delirium, but neuro status is so labile, we are holding pharmacologic therapies. 06/17: csf cultured yesterday. continues to do well, except for delirium, which is stable. still only oriented to person. Objective Vital Signs Date Time Temp Pulse Resp B/P Pulse Ox O2 Delivery O2 Flow Rate FiO2 06/17/16 10:00 110 06/17/16 08:00 98.8 15 140/74 100 06/17/16 07:00 Room Air 06/15/16 20:19 21 Intake and Output 06/16/16 06/16/16 06/17/16 08:00 16:00 00:00 Intake Total 913 ml 1025 ml 880 ml Output Total 365.0 ml 811 ml 525 ml Balance 548.0 ml 214 ml 355 ml Result Diagram: 06/17/16 0315 06/17/16 0319 Imaging Last Impressions Head CT 06/02/16 0000 Signed Impressions: Service Date/Time: Thursday, June 02, 2016 20:00 - CONCLUSION: Postoperative partial occipital craniectomy for treatment of arteriovenous malformation with vascular coils present in the operative bed. There is encephalomalacia in the posterior fossa involving the posterior cerebellum more so on the left side. No new intracranial hemorrhage. Resolution of previous intraventricular hemorrhage. Removal of previous ventriculostomy. Kirk Cortes MD Objective Remarks GENERAL: 55-year-old male, remains conversant and active. Confused. SKIN: Warm and dry. No rashes. HEAD: Dry posterior wound, clean, healing well.. New right ventriculostomy placed 06/12. NECK: Supple. No obstruction. Airway widely patent. CARDIOVASCULAR: RRR. S1, S2. Without murmurs, or rubs. No JVD. RESPIRATORY: Few mobile secretions, clear with cough. Normal excursions. GASTROINTESTINAL: Abdomen soft, non-tender, nondistended. MUSCULOSKELETAL: Warm, well perfused. Neuro: Moves all 4 extremities spontaneously. Opening his eyes to voice, oriented to self. Active movement all 4 limbs. Conversant. follows commands. A/P Problem List: (1) AVM (arteriovenous malformation) brain ICD Code: Q28.2 Status: Acute (2) Encephalopathy, traumatic ICD Code: F07.81 Status: Acute (3) UTI (urinary tract infection) ICD Code: N39.0 Status: Acute (4) Agitation ICD Code: R45.1 Status: Acute (5) Cerebellar hemorrhage ICD Code: I61.4 Status: Acute Assessment and Plan Neurologic/Psych: Intracranial hemorrhage Pial AVM Subarachnoid hemorrhage Mild Encephalopathy CSF leak?? - status post AVM embolization followed by suboccipital craniotomy for hematoma evacuation and AVM resection at [facility]. Postoperatively, he was slow to wake up and a head CT showed herniation. - Neurosurgery following, Dr. Flowers. Status post right ventriculostomy 06/03, replaced 06/12 due to Hermila CSF infection. - Keppra 500 mg twice a day for seizure prophylaxis - CT of head 06/02 revealed partial occipital craniotomy with coiling. - EEG 06/03 read as normal. No seizure activity. - Interactive Respiratory: - NC to maintain saturations greater than equal to 92% - Incentive spirometry while awake when he'll cooperate. - got OOB yesterday with 3 person assist and PT. will attempt again today. daily PT is important to his recovery. Cardiovascular: Hypertension - Metoprol currently 12.5 milligrams by mouth twice a day. - continue Telemetry Renal: - Strict I/Os - attempt euvolemia - Keep well hydrated during Ampho B infusion. FEN/GI: Acute protein calorie malnutritionmild Hypernatremia Diarrhea- resolved intravascular volume depletion- resolving - Currently on Jevity 1.5 goal 50 cc an hour - continue free water 200 cc every 6 - ICU electrolyte protocol - Pepcid for GI prophylaxis - Colace/MiraLAX for bowel regimen held with diarrhea, this is now resolved. if no BM today will restart. - C. difficile negative - Check prealbumin -> 19, better than expected, continue TFs as ordered. Added benepro bid. Heme Normocytic anemia - Does not meet transfusion triggers at this time. - Daily CBC ID Hermila Ventriculitis Enterococcus Bacteremia - CSF and blood positive Pertinent cultures 06/03 - CSF - no organisms, NGTD 06/06: Blood Enterococcus -> vancomycin 06/10 06/10: CSF -> Hermila 06/16: CSF surveilance cultures: Gram stain with budding yeast still. Continue AmphoB intra-ventric and IV Continue Vanc IV - stop date 06/24. 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 Will need long-term antifungal therapy. Continue hydration today. OOB with excercise to prevent deconditioning. Problem Qualifiers (1) UTI (urinary tract infection): (2) Cerebellar hemorrhage: Qualified Code: I61.4 - Nontraumatic intracerebral hemorrhage of cerebellum, unspecified laterality Orlando Ibrahim MD Jun 17, 2016 11:46
[2016-06-17] MEDS: diphenhydrAMINE HCL 50 MG/ML VIAL IV PRN (15:26)
[2016-06-17] MEDS: AMPHOTERICIN B LIPOSOME IV SCH ×2 (15:27)
[2016-06-17] MEDS: WATER IV SCH ×2 (15:27)
[2016-06-17] MEDS: DEXTROSE 5% IV SCH ×2 (15:27)
[2016-06-18] VITALS (15 sets, daily range): BP systolic 104–158; BP diastolic 59–81; PULSE 78–125; RESP 15–26; TEMP 98.2–102.7; O2SAT 96–100
[2016-06-18] MEDS: VANCOMYCIN 1,000 MG/NS 250 ML IV SCH ×4 (00:23→17:51)
[2016-06-18] MEDS: CHLORHEXIDINE GLUCONATE 2 % 1 PACK (2 CLOTHS) TOP SCH (04:00)
[2016-06-18 04:08] LABS: HEMATOCRIT 28.8 % (39.0-51.0); MEAN CELL VOLUME 89.4 FL (80.0-100.0); MEAN CORPUSCULAR HEMOGLOBIN 30.2 PG (27.0-34.0); MEAN CORPUSCULAR HGB CONC 33.7 % (32.0-36.0); PLATELET COUNT 404 TH/MM3 (150-450); RED BLOOD COUNT 3.22 MIL/MM3 (4.50-5.90); RED CELL DISTRIBUTION WIDTH 13.8 % (11.6-17.2); REVIEW FLAG FINAL; WHITE BLOOD COUNT 13.9 TH/MM3 (4.0-11.0)
[2016-06-18 04:33] LABS: BICARBONATE 29.5 MEQ/L (21.0-32.0)
[2016-06-18] MEDS: FREE WATER G-TUBE SCH ×4 (04:53→17:51)
--- NOTE | 2016-06-18 08:42 | HHI.NSPN ---
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 The patient underwent placement of right frontal external ventricular drain for acute hydrocephalus and was transferred to [facility] for further treatment of the AVM by embolization followed by suboccipital craniotomy for hematoma evacuation, and AVM resection at [facility] . Postoperatively, he was slow to wake up, his EVD was Clamped and removed at [facility] and his mental status was improving. He had UTI and agitation. He was started on Rocephin and Seroquel. The patient was being transferred back to [facility] due to confusion and CSF leak. 06/04: s/p placement of ventriculostomy drain. no further leaking noted from posterior fossa wound, there has been scab formation also. 06/05: no wound leak seen 06/06: appears more awake today, wound dry, no evidence of CSF leaking overnight 06/09: wound dry, sitting up in chair eating breakfast 06/10: follow up CT Brain reviewed 06/11: prelim CSF testing shows elevated WBCs, proteins with low glucose, 06/12: CSF showing fungal growth, intraventricular ampho b ordered 06/13: EVD draining, no significant changes to neuro checks overnight 06/16: neuro checks stable overnight, alert, pleasantly confused today 06/17: intermittently confused, working with PT, repeat CSF cx pending 06/18: intermittent complaints of headaches yesterday, currently denies HAs, moves all four extremities, reported no allergic type rx following administration of intraventric ampho (Anusha Hastings) Labs, Micro, & Vital Signs Results Date Time Temp Pulse Resp B/P Pulse Ox O2 Delivery O2 Flow Rate FiO2 06/18/16 07:59 100 21 06/18/16 07:00 100 Room Air 06/18/16 06:00 98 06/18/16 04:00 93 06/18/16 04:00 98.2 94 15 137/76 99 06/18/16 02:00 100 06/18/16 00:00 78 06/18/16 00:00 98.7 84 25 117/72 99 06/17/16 22:00 72 06/17/16 20:00 99.0 96 17 141/75 97 06/17/16 20:00 96 06/17/16 19:00 97 Room Air 06/17/16 18:00 94 06/17/16 16:00 110 06/17/16 16:00 100.3 110 20 142/86 98 06/17/16 14:00 102 06/17/16 12:00 103 06/17/16 12:00 100.5 103 16 145/80 98 06/17/16 10:00 110 06/18/16 06:59 Intake Total 2729 ml Output Total 1773 ml Balance 956 ml Constitutional Vital Signs Date Time Temp Pulse Resp B/P Pulse Ox O2 Delivery O2 Flow Rate FiO2 06/18/16 07:59 100 21 06/18/16 07:00 100 Room Air 06/18/16 06:00 98 06/18/16 04:00 93 06/18/16 04:00 98.2 94 15 137/76 99 06/18/16 02:00 100 06/18/16 00:00 78 06/18/16 00:00 98.7 84 25 117/72 99 06/17/16 22:00 72 06/17/16 20:00 99.0 96 17 141/75 97 06/17/16 20:00 96 06/17/16 19:00 97 Room Air 06/17/16 18:00 94 06/17/16 16:00 110 06/17/16 16:00 100.3 110 20 142/86 98 06/17/16 14:00 102 06/17/16 12:00 103 06/17/16 12:00 100.5 103 16 145/80 98 06/17/16 10:00 110 06/18/16 06:59 Intake Total 2729 ml Output Total 1773 ml Balance 956 ml (Anusha Hastings) Review of Systems/Exam Exam He is alert, oriented to name only, resting comfortably in bed. Speech is fluent but confused. follows few simple commands. Ventriculostomy drain in place, open at 0 cm H20. CSF is cloudy and slightly xanthochromic CN: gross EOMs intact. facial appears symmetric at rest moves grossly all four extremities, on upper extremity restraints Cerebellar: cannot assess due to clinical condition (Anusha Hastings) Medications Current Medications Current Medications Medications (Trade) Dose Ordered Sig/Paula Route PRN Reason Start Time Stop Time Status Last Admin Dose Admin Naloxone HCl (Narcan Inj) 0.4 mg UNSCH PRN IV SEE LABEL COMMENTS 05/29/16 15:00 Acetaminophen/ Butalbital/ Caffeine (Fioricet 325-50-40) 1 tab Q6H PRN PO PAIN GREATER THAN 5 or headach 05/29/16 15:00 06/16/16 08:09 Heparin Sodium (Porcine) (Heparin Inj) 5,000 units Q12HR SQ 05/29/16 21:00 06/17/16 20:05 Levetriacetam (Keppra) 500 mg Q12HR PO 05/29/16 21:00 06/17/16 20:06 Morphine Sulfate (Morphine Inj) 2 mg Q3H PRN IV PUSH BREAKTHROUGH PAIN 06/02/16 10:30 06/16/16 09:43 Diphenhydramine HCl (Benadryl 2% Cream) 1 applic TID PRN TOPICAL ITCHING 06/02/16 11:15 IV Flush (NS Flush) 2 ml UNSCH PRN IV FLUSH FLUSH AFTER USING IV ACCESS 06/03/16 09:45 IV Flush (NS Flush) 2 ml BID IV FLUSH 06/03/16 21:00 06/17/16 20:06 Acetaminophen (Tylenol) 650 mg Q6H PRN PO FEVER >100F 06/03/16 09:45 06/16/16 17:04 Ondansetron HCl (Zofran Inj) 4 mg Q6H PRN IV NAUSEA OR VOMITING 06/03/16 09:45 06/16/16 21:24 Docusate Sodium (Colace) 100 mg BID PO 06/03/16 21:00 06/17/16 20:06 Sennosides (Senokot) 17.2 mg BID PO 06/03/16 09:45 06/17/16 20:05 Miscellaneous Information 1 Q361D XX 06/03/16 09:45 Chlorhexidine Gluconate (Chlorhexidine 2% Cloth) Taper DAILY@04 TOP 06/04/16 04:00 05/31/17 03:59 06/18/16 04:00 Chlorhexidine Gluconate 3 pack 3 pack UNSCH PRN TOP HYGIENIC CARE 06/03/16 09:45 Thiamine HCl/ Sodium Chloride (Thiamine Inj/NS Inj) 101 ml @ 101 mls/hr DAILY IV 06/04/16 09:00 06/17/16 09:22 Polyethylene Glycol 17 gm 17 gm DAILY PO 06/04/16 09:00 Hold Sodium Chloride (NS 1000 ml Inj) 1,000 ml @ 100 mls/hr Q10H IV 06/03/16 21:16 Hold 06/05/16 22:23 Famotidine (Pepcid) 20 mg BID NG 06/04/16 09:00 06/17/16 20:06 Metoprolol Tartrate (Lopressor) 12.5 mg Q12HR PO 06/05/16 21:00 06/17/16 20:05 Quetiapine Fumarate (SEROquel) 25 mg BID PO 06/06/16 09:00 06/17/16 20:06 Loperamide HCl 2 mg 2 mg UNSCH PRN TUBE DIARRHEA 06/06/16 16:15 06/07/16 21:24 Pharmacy Profile Note (Vancomycin Consult Pharmacy) 0 ml @ 0 mls/hr UNSCH OTHER 06/10/16 10:15 Diphenhydramine HCl (Benadryl Inj) 25 mg Q24H PRN IV PRE-MED PRIOR TO AMPHOTERCIN B 06/11/16 17:00 06/17/16 15:26 Hydrocortisone Sodium Succinate 25 mg 25 mg Q24H PRN IV PRE-MED PRIOR TO AMPHOTERCIN B 06/11/16 17:00 06/16/16 08:10 Amphotericin B Liposome 280 mg/ Dextrose 280 ml @ 125 mls/hr Q24H IV 06/12/16 15:00 06/17/16 15:27 Potassium Chloride 100 ml @ 50 mls/hr Q2H PRN IV For Potassium 2.8 - 3.2 mEq/L 06/12/16 07:15 Potassium Chloride (KCl 20 Meq Premix Inj) 100 ml @ 50 mls/hr Q2H PRN IV For Potassium 2.8 - 3.2 mEq/L 06/12/16 07:15 Potassium Chloride 40 meq 40 meq UNSCH PRN PO/TUBE For Potassium 3.3 - 3.5 mEq/L 06/12/16 07:15 06/16/16 06:34 Potassium Chloride 100 ml @ 25 mls/hr UNSCH PRN IV For Potassium 3.3 - 3.5 mEq/L 06/12/16 07:15 Potassium Chloride 100 ml @ 50 mls/hr Q2H PRN IV For Potassium 3.3 - 3.5 mEq/L 06/12/16 07:15 Magnesium Sulfate/ Sodium Chloride (Magnesium Sulfate Inj/NS Inj) 100 ml @ 50 mls/hr UNSCH PRN IV For Magnesium 0.9 - 1.1 mg/dL 06/12/16 07:15 Magnesium Oxide 800 mg 800 mg UNSCH PRN PO For Magnesium 1.2 - 1.6 mg/dL 06/12/16 07:15 Magnesium Sulfate/ Sodium Chloride (Magnesium Sulfate Inj/NS Inj) 100 ml @ 50 mls/hr UNSCH PRN IV For Magnesium 1.2 - 1.6 mg/dL 06/12/16 07:15 Potassium Phosphate 2000 mg 2,000 mg Q4H PRN PO For Phosphorus < 2.5 mg/dL 06/12/16 07:15 Sodium Phosphate/ Sodium Chloride (Sodium Phosphate Inj/NS 250 ml Inj) 250 ml @ 42 mls/hr UNSCH PRN IV For Phosphorus < 2.5 mg/dL 06/12/16 07:15 Potassium Chloride (KCl 40 Meq/30 ml Liq) 40 meq UNSCH PRN PO/TUBE SEE LABEL COMMENTS 06/12/16 07:15 Potassium Phosphate 2000 mg 2,000 mg UNSCH PRN PO/TUBE SEE LABEL COMMENTS 06/12/16 07:15 Potassium Phosphate/Sodium Chloride (Potassium Phosphate Inj/NS 250 ml Inj) 260 ml @ 42 mls/hr UNSCH PRN IV SEE LABEL COMMENTS 06/12/16 07:15 Amphotericin B (Amphotericin B Conv Inj) 1 mg Q24H OTHER 06/13/16 09:00 06/17/16 09:20 Water 200 ml 200 ml Q6HR G-TUBE 06/16/16 12:00 06/18/16 04:53 Vancomycin HCl/ Sodium Chloride (Vancomycin Inj/ NS 250 ml Inj) 250 ml @ 250 mls/hr Q18H IV 06/17/16 06:00 12/14/16 00:23 Miscellaneous Information SPECIFIC LAB TO BE DRAWN:VANCOMYCIN DATE TO BE . ONCE ONCE XX 06/19/16 11:45 06/19/16 11:46 (Anusha Hastings) Medical Decision Making MDM Remarks 55 y/o male s/p posterior fossa craniectomy for evacuation of cerebellar bleed due to AVM with embolization at [facility] s/p ventriculostomy placement for CSF leak ventriculitis with growth of Hermila, replacement of ventriculostomy drain , started intraventricular Ampho B tx 06/12/16 (Anusha Hastings) Plan Plan Remarks cont daily intraventricular administration ampho b per ID keep EVD draining at 0 cm H20 cont daily therapy serial neuro checks CSF cultures 06/16 still pending Dose 7 Intraventricular Ampho B given today (Anusha Hastings) Attending Statement The exam, history, and the medical decision-making described in the above note were completed with the assistance of the mid-level provider. I reviewed and agree with the findings presented. I attest that I had a [id number] encounter with the patient on the same day, and personally performed and documented my assessment and findings in the medical record. (John Flowers MD) Anusha Hastings Jun 18, 2016 08:42 John Flowers MD Jun 20, 2016 08:32
[2016-06-18] MEDS: levETIRAcetam 500 MG TAB PO SCH ×2 (08:52→22:19)
[2016-06-18] MEDS: METOPROLOL TARTRATE 25 MG TAB PO SCH ×2 (08:53→22:19)
[2016-06-18] MEDS: QUEtiapine FUMARATE 25 MG TAB PO SCH ×2 (08:53→22:19)
[2016-06-18] MEDS: HEPARIN SODIUM - SQ 10,000 UNITS/ML VIAL SQ SCH ×2 (08:53→22:19)
[2016-06-18] MEDS: SENNOSIDES 8.6 MG TAB PO SCH ×2 (08:53→21:00)
[2016-06-18] MEDS: FAMOTIDINE 20 MG TAB NG SCH ×2 (08:53→22:19)
[2016-06-18] MEDS: AMPHOTERICIN B 50 MG OTHER SCH (08:53)
[2016-06-18] MEDS: DOCUSATE SODIUM 100 MG CAP PO SCH ×2 (08:54→21:00)
[2016-06-18] MEDS: SODIUM CHLORIDE 0.9% FLUSH 5 ML FLUSH IV FLUSH SCH ×2 (08:54→21:00)
[2016-06-18] MEDS: THIAMINE INJ 100 MG in SODIUM CHLORIDE 0.9% INJ 100 ML IV SCH (11:40)
[2016-06-18] MEDS: ONDANSETRON HCL 4 MG/2 ML VIAL IV PRN (11:41)
[2016-06-18] MEDS: MORPHINE SULFATE 4 MG/ML INJ IV PUSH PRN (11:42)
--- NOTE | 2016-06-18 13:48 | HHI.IDPN ---
Subjective Subjective Remarks is a 55 y/o CM with AVM s/p coiling. ID following for Hermila ventriculitis and E.faecalis bacteremia. Overnight events reviewed. Occ low grade fevers 100 F likely Vanco related. No rash No diarrhea Awake, answers questions . Asked me what I was treating him for today. I explained to him about the ventric infection. He said thank you. No seizures. Antibiotics Vanco IV Ampho Intra Venous Ampho Intra Ventricular. Lines Line sites with no e/o infection Past Medical History AVM s/p coil Allergies: Coded Allergies: Oxycodone (Unverified Allergy, Intermediate, ITCHY, 01/16/16) Objective . Vital Signs Date Time Temp Pulse Resp B/P Pulse Ox O2 Delivery O2 Flow Rate FiO2 06/18/16 12:00 98.4 109 22 158/79 96 06/18/16 12:00 109 06/18/16 10:00 96 06/18/16 08:00 98.5 97 20 122/81 100 06/18/16 08:00 97 06/18/16 07:59 100 21 06/18/16 07:00 100 Room Air 06/18/16 06:00 98 06/18/16 04:00 93 06/18/16 04:00 98.2 94 15 137/76 99 06/18/16 02:00 100 06/18/16 00:00 78 06/18/16 00:00 98.7 84 25 117/72 99 06/17/16 22:00 72 06/17/16 20:00 99.0 96 17 141/75 97 06/17/16 20:00 96 06/17/16 19:00 97 Room Air 06/17/16 18:00 94 06/17/16 16:00 110 06/17/16 16:00 100.3 110 20 142/86 98 06/17/16 14:00 102 06/17/16 06/17/16 06/18/16 15:00 23:00 07:00 Intake Total 751 ml 848 ml 1130 ml Output Total 818 ml 425 ml 530 ml Balance -67 ml 423 ml 600 ml Intake Oral 0 ml 0 ml IV Total 123 ml 153 ml 361 ml Tube Feeding 368 ml 295 ml 369 ml Tube Irrigant 60 ml Other 200 ml 400 ml 400 ml Output Urine Total 800 ml 400 ml 500 ml Drainage Total 18 ml 25 ml 30 ml # Bowel Movements 1 2 2 . Laboratory Tests Test 06/17/16 06/18/16 03:15 03:15 White Blood Count 12.3 TH/MM3 13.9 TH/MM3 Red Blood Count 3.58 MIL/MM3 3.22 MIL/MM3 Hemoglobin 10.7 GM/DL 9.7 GM/DL Hematocrit 32.1 % 28.8 % Mean Corpuscular Volume 89.7 FL 89.4 FL Mean Corpuscular Hemoglobin 30.0 PG 30.2 PG Mean Corpuscular Hemoglobin 33.4 % 33.7 % Concent Red Cell Distribution Width 13.7 % 13.8 % Platelet Count 410 TH/MM3 404 TH/MM3 Mean Platelet Volume 8.5 FL 8.1 FL Laboratory Tests Test 06/17/16 06/18/16 03:19 03:15 Sodium Level 144 MEQ/L 144 MEQ/L Potassium Level 3.9 MEQ/L 3.0 MEQ/L Chloride Level 105 MEQ/L 105 MEQ/L Carbon Dioxide Level 32.6 MEQ/L 29.5 MEQ/L Anion Gap 6 MEQ/L 10 MEQ/L Blood Urea Nitrogen 24 MG/DL 21 MG/DL Creatinine 1.04 MG/DL 1.01 MG/DL Estimat Glomerular Filtration 74 ML/MIN 77 ML/MIN Rate Random Glucose 92 MG/DL 124 MG/DL Calcium Level 9.1 MG/DL 8.7 MG/DL Microbiology Date/Time Procedure Status Source Growth 06/16/16 16:30 Gram Stain - Final Resulted Cerebral Spinal Fluid Shunt Fluid 06/16/16 16:30 CSF Culture - Preliminary Resulted Cerebral Spinal Fluid Shunt Fluid NO GROWTH IN 48 HOURS. 06/16/16 16:30 Fungal Smear - Final Resulted Cerebral Spinal Fluid Lumbar Puncture RARE BUDDING YEAST CELLS 06/16/16 16:30 Fungal Culture Resulted Cerebral Spinal Fluid Lumbar Puncture Pending Imaging Last Impressions Head CT 06/10/16 0600 Signed Impressions: Service Date/Time: Friday, June 10, 2016 05:01 - CONCLUSION: 1. 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 Locules of air within the fluid are decreasing since June 08. Right frontal ventriculostomy tube remains present with stable ventricular size. No hydrocephalus. Kirk Cortes MD Physical Exam GENERAL: Thin built, well-developed patient, in no apparent distress. SKIN: No rashes. Cool and dry. HEAD: Surgical site with no e/o infection. Ventric site with no gross e/o infection. EYES: Pupils equal round and reactive. Extraocular motions intact. ENT: Nose without bleeding, purulent drainage or septal hematoma. Throat without erythema, tonsillar hypertrophy or exudate. Uvula midline. Airway patent. NECK: Trachea midline.Supple, nontender, neck not very supple. Some stiffness towards end on flexion. ? patient reliability. CARDIOVASCULAR: Regular rate and rhythm. No murmur appreciated. RESPIRATORY: Clear to auscultation. Breath sounds equal bilaterally. No wheezes , rales, or rhonchi. GASTROINTESTINAL: Abdomen soft, non-tender, nondistended. MUSCULOSKELETAL: Extremities without clubbing, cyanosis, or edema. No joint tenderness, effusion, or edema noted. NEUROLOGICAL: Awake and alert. Responds to questions not appropriate all the times. Moves all 4 extremities. Psych: cooperative IV line sites with no e/o infection. Assessment & Plan Remarks Hermila albicans ventriculitis. MRI cannot be performed due to coils. CSF fluid was very cloudy and had fungal sediments. Patient candidate for LABORATORY APPARATUS GLASS BLOWER shunt in near future. E.faecalis bacteremia: No central lines or PIVs. SIRS/Sepsis now controlled since Vanco IV started. AVM was transferred to [facility] for further treatment of the AVM by embolization followed by suboccipital craniotomy for hematoma evacuation and AVM resection. CSF leak and hydrocephalus s/p Rt sima hole and Ventriculostomy catheter placement 06/03/2016. Recs: Intra Venous amphotericin Liposomal. Follow K,Mg, Phos, Cr daily while patient on Amphotericin Liposomal IV Continue IV Vanco target trough 15-20 (06/24/16) Follow cultures Follow clinically Hermila albicans sent to [place] for susceptibility. Continue Benadryl IV and Hydrocortisone IV as premedication for Amphotericin IV as well as if need prior to Intra ventricular dose. Recommend surveillance CSF cultures next week to see if CSF clearing up. Noted WBC still high in CSF but could be reactive to Ampho instillation. CSF gram stain previously many yeast cells now with rare cells appears to be improving. d/w RN re: premedication D.w : if repeat CSF next week not improved will consider adding 5FC oral in addition to the Ampho iV and Ventric instillation. Jenifer Babin MD Jun 18, 2016 13:48
--- NOTE | 2016-06-18 14:13 | HHI.CCPN ---
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 The patient underwent placement of right frontal external ventricular drain for acute hydrocephalus and was transferred to [facility] for further treatment of the AVM by embolization followed by suboccipital craniotomy for hematoma evacuation and AVM resection. Postoperatively, he was slow to wake up, his EVD was Clamped and removed and his mental status was improving. Other complications include the UTI and agitation. He was started on Rocephin and Seroquel. The patient is being transferred back to [facility] due to confusion and questionable CSF leak. 06/03: Noted AVM embolization followed by suboccipital craniotomy for hematoma evacuation and AVM resection. Postoperatively, he was slow to wake up and a head CT showed herniation.. Noted CT last night revealed status post partial occipital craniotomy changes with Coils. Currently afebrile. Arousable and will follow commands but won't open eyes. Noted to have leaking from the occipital region plan to go back to or for suturing with neurosurgery. 06/04: Tmax 99. 3 problems overnight. Received 1 dose of Cafergot overnight for headache. Noted placement of a right ventriculostomy secondary to CSF leak yesterday. Patient is arousable. Tolerating tube feeding currently. 06/05: Afebrile. Mentation somewhat improved. Positive BM 4. Tolerating tube feeding. Will follow commands. Answers questions appropriately. 06/06: Afebrile. Sitting up in chair yesterday no acute distress. Positive BM 8 yesterday. Tolerating tube feeding. Follows commands. Still confused but answers questions appropriately. 06/07: Tmax 99. Currently on 2 L nasal cannula. Awake and alert to person only. No more CSF leak overnight. One to 2 word answers per his norm. 8 bowel movements negative C. difficile. 06/08: Tmax 99. Currently on room air. Awake and alert to person. No CSF leak. For bowel movements overnight. Noted that ventricular drain currently at 0 cm H2O 06/09: Tmax 102.2. WBC 12,000. Tolerating TFs. 06/10: Tmax 99.7. WBC declining. CT Head no change, some resolution of air in posterior fossa. TFs continue. 3/4 bottles blood positive for GPC. 06/11: Budding yeast, pseudohyphae in CSF. Enterococcus in blood. Mentation unchanged. ID consulted. 06/12: Started on Liposomal Ampho B, premedicated for mild reaction. Mentation unchanged. 06/13: Tolerating Amph B, headache only complaint. 06/14: Tolerating anti-fungal agent infused through ventric. ID guiding therapy. 06/15: A little dry - hydrate with NS bolus. Continue TFs. 06/16: continues to clinically appear slightly volume deplete. increasing free water to 200 q6h per tube. otherwise no significant change. continues to have agitated delirium, but neuro status is so labile, we are holding pharmacologic therapies. 06/17: csf cultured yesterday. continues to do well, except for delirium, which is stable. still only oriented to person. 06/18: csf gram stain with rare budding yeast. delirium stable. Objective Vital Signs Date Time Temp Pulse Resp B/P Pulse Ox O2 Delivery O2 Flow Rate FiO2 06/18/16 12:00 98.4 109 22 158/79 96 06/18/16 07:59 21 06/18/16 07:00 Room Air Intake and Output 06/17/16 06/17/16 06/18/16 08:00 16:00 00:00 Intake Total 1290 ml 751 ml 848 ml Output Total 550 ml 818 ml 425 ml Balance 740 ml -67 ml 423 ml Result Diagram: 06/18/16 0315 06/18/16 0315 Imaging Last Impressions Head CT 06/02/16 0000 Signed Impressions: Service Date/Time: Thursday, June 02, 2016 20:00 - CONCLUSION: Postoperative partial occipital craniectomy for treatment of arteriovenous malformation with vascular coils present in the operative bed. There is encephalomalacia in the posterior fossa involving the posterior cerebellum more so on the left side. No new intracranial hemorrhage. Resolution of previous intraventricular hemorrhage. Removal of previous ventriculostomy. Kirk Cortes MD Objective Remarks GENERAL: 55-year-old male, remains conversant and active. Confused. SKIN: Warm and dry. No rashes. HEAD: Dry posterior wound, clean, healing well.. New right ventriculostomy placed 06/12. NECK: Supple. No obstruction. Airway widely patent. CARDIOVASCULAR: RRR. S1, S2. Without murmurs, or rubs. No JVD. RESPIRATORY: Few mobile secretions, clear with cough. Normal excursions. GASTROINTESTINAL: Abdomen soft, non-tender, nondistended. MUSCULOSKELETAL: Warm, well perfused. Neuro: Moves all 4 extremities spontaneously. Opening his eyes to voice, oriented to self. Active movement all 4 limbs. Conversant. follows commands. A/P Problem List: (1) AVM (arteriovenous malformation) brain ICD Code: Q28.2 Status: Acute (2) Encephalopathy, traumatic ICD Code: F07.81 Status: Acute (3) UTI (urinary tract infection) ICD Code: N39.0 Status: Acute (4) Agitation ICD Code: R45.1 Status: Acute (5) Cerebellar hemorrhage ICD Code: I61.4 Status: Acute Assessment and Plan Neurologic/Psych: Intracranial hemorrhage Pial AVM Subarachnoid hemorrhage Mild Encephalopathy CSF leak?? - status post AVM embolization followed by suboccipital craniotomy for hematoma evacuation and AVM resection at [facility]. Postoperatively, he was slow to wake up and a head CT showed herniation. - Neurosurgery following, Dr. Flowers. Status post right ventriculostomy 06/03, replaced 06/12 due to Hermila CSF infection. - Keppra 500 mg twice a day for seizure prophylaxis - CT of head 06/02 revealed partial occipital craniotomy with coiling. - EEG 06/03 read as normal. No seizure activity. - Interactive Respiratory: - NC to maintain saturations greater than equal to 92% - Incentive spirometry while awake when he'll cooperate. - OOB daily with PT. Cardiovascular: Hypertension - Metoprol currently 12.5 milligrams by mouth twice a day. - continue Telemetry Renal: - Strict I/Os - attempt euvolemia - Keep well hydrated during Ampho B infusion. FEN/GI: Acute protein calorie malnutritionmild Hypernatremia Diarrhea- resolved intravascular volume depletion- resolving - Currently on Jevity 1.5 goal 50 cc an hour - continue free water 200 cc every 6 - ICU electrolyte protocol - Pepcid for GI prophylaxis - Colace/MiraLAX for bowel regimen held with diarrhea, this is now resolved. if no BM today will restart. - C. difficile negative - Check prealbumin -> 19, better than expected, continue TFs as ordered. Added benepro bid. Heme Normocytic anemia - Does not meet transfusion triggers at this time. - Daily CBC ID Hermila Ventriculitis Enterococcus Bacteremia - CSF and blood positive Pertinent cultures 06/03 - CSF - no organisms, NGTD 06/06: Blood Enterococcus -> vancomycin 06/10 06/10: CSF -> Hermila 06/16: CSF surveilance cultures: Gram stain with budding yeast, though after discussion with Dr. Babin, this is only a few days after implementation of intraventric Ampho, so not unusual. We will plan to repeat surveilance CSF cultures in 7 days (06/25). Continue AmphoB intra-ventric and IV Continue Vanc IV - stop date 06/24. 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 Will need long-term antifungal therapy. Continue hydration today. OOB with excercise to prevent deconditioning. Problem Qualifiers (1) UTI (urinary tract infection): (2) Cerebellar hemorrhage: Qualified Code: I61.4 - Nontraumatic intracerebral hemorrhage of cerebellum, unspecified laterality Orlando Ibrahim MD Jun 18, 2016 14:13
[2016-06-18] MEDS: diphenhydrAMINE HCL 50 MG/ML VIAL IV PRN (15:16)
[2016-06-18] MEDS: AMPHOTERICIN B LIPOSOME IV SCH ×2 (15:56)
[2016-06-18] MEDS: WATER IV SCH ×2 (15:56)
[2016-06-18] MEDS: DEXTROSE 5% IV SCH ×2 (15:56)
[2016-06-18] MEDS: ACETAMINOPHEN 325 MG TAB PO PRN (16:58)
[2016-06-19] VITALS (13 sets, daily range): BP systolic 109–144; BP diastolic 67–88; PULSE 60–96; RESP 12–22; TEMP 97.6–99; O2SAT 98–100
[2016-06-19] MEDS: FREE WATER G-TUBE SCH ×4 (00:11→17:10)
[2016-06-19] MEDS: CHLORHEXIDINE GLUCONATE 2 % 1 PACK (2 CLOTHS) TOP SCH (04:00)
[2016-06-19 04:16] LABS: MEAN CELL VOLUME 89.3 FL (80.0-100.0); MEAN CORPUSCULAR HEMOGLOBIN 29.8 PG (27.0-34.0); MEAN CORPUSCULAR HGB CONC 33.4 % (32.0-36.0); PLATELET COUNT 410 TH/MM3 (150-450); RED BLOOD COUNT 3.13 MIL/MM3 (4.50-5.90); RED CELL DISTRIBUTION WIDTH 13.6 % (11.6-17.2); REVIEW FLAG FINAL; WHITE BLOOD COUNT 14.7 TH/MM3 (4.0-11.0)
[2016-06-19 04:40] LABS: BICARBONATE 27.9 MEQ/L (21.0-32.0); POTASSIUM 3.4 MEQ/L (3.5-5.1)
[2016-06-19] MEDS: POTASSIUM CL 40 MEQ/30 ML LIQ UDC PO/TUBE PRN (05:13)
[2016-06-19] MEDS: QUEtiapine FUMARATE 25 MG TAB PO SCH ×2 (08:37→20:23)
[2016-06-19] MEDS: FAMOTIDINE 20 MG TAB NG SCH ×2 (08:37→20:23)
[2016-06-19] MEDS: levETIRAcetam 500 MG TAB PO SCH ×2 (08:37→20:23)
[2016-06-19] MEDS: SENNOSIDES 8.6 MG TAB PO SCH ×2 (08:37→20:23)
[2016-06-19] MEDS: DOCUSATE SODIUM 100 MG CAP PO SCH ×2 (08:37→20:23)
[2016-06-19] MEDS: METOPROLOL TARTRATE 25 MG TAB PO SCH ×2 (08:37→20:23)
[2016-06-19] MEDS: SODIUM CHLORIDE 0.9% FLUSH 5 ML FLUSH IV FLUSH SCH ×2 (08:37→20:23)
[2016-06-19] MEDS: HEPARIN SODIUM - SQ 10,000 UNITS/ML VIAL SQ SCH ×2 (08:38→20:23)
[2016-06-19] MEDS: diphenhydrAMINE HCL 50 MG/ML VIAL IV PRN (08:42)
[2016-06-19] MEDS: MORPHINE SULFATE 4 MG/ML INJ IV PUSH PRN ×2 (08:43→15:34)
[2016-06-19] MEDS: THIAMINE INJ 100 MG in SODIUM CHLORIDE 0.9% INJ 100 ML IV SCH (09:16)
[2016-06-19] MEDS: ONDANSETRON HCL 4 MG/2 ML VIAL IV PRN (09:16)
[2016-06-19] MEDS: AMPHOTERICIN B 50 MG OTHER SCH (09:17)
--- NOTE | 2016-06-19 10:07 | HHI.NSPN ---
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 The patient underwent placement of right frontal external ventricular drain for acute hydrocephalus and was transferred to [facility] for further treatment of the AVM by embolization followed by suboccipital craniotomy for hematoma evacuation, and AVM resection at [facility] . Postoperatively, he was slow to wake up, his EVD was Clamped and removed at [facility] and his mental status was improving. He had UTI and agitation. He was started on Rocephin and Seroquel. The patient was being transferred back to [facility] due to confusion and CSF leak. 06/04: s/p placement of ventriculostomy drain. no further leaking noted from posterior fossa wound, there has been scab formation also. 06/05: no wound leak seen 06/06: appears more awake today, wound dry, no evidence of CSF leaking overnight 06/09: wound dry, sitting up in chair eating breakfast 06/10: follow up CT Brain reviewed 06/11: prelim CSF testing shows elevated WBCs, proteins with low glucose, 06/12: CSF showing fungal growth, intraventricular ampho b ordered 06/13: EVD draining, no significant changes to neuro checks overnight 06/16: neuro checks stable overnight, alert, pleasantly confused today 06/17: intermittently confused, working with PT, repeat CSF cx pending 06/18: intermittent complaints of headaches yesterday, currently denies HAs, moves all four extremities, reported no allergic type rx following administration of intraventric ampho 06/19: reported SCHULTZ following ampho b adminstration that resolves, no changed in mental status or neuro checks (Anusha Hastings) Labs, Micro, & Vital Signs Results Date Time Temp Pulse Resp B/P Pulse Ox O2 Delivery O2 Flow Rate FiO2 06/19/16 08:00 96 06/19/16 08:00 98.5 96 22 126/80 99 06/19/16 07:15 99 21 06/19/16 07:00 99 Room Air 06/19/16 06:00 90 06/19/16 04:00 99.0 84 22 109/67 99 06/19/16 04:00 84 06/19/16 02:00 86 06/19/16 00:00 78 06/19/16 00:00 99.0 78 22 144/81 98 06/18/16 22:00 100 06/18/16 21:05 100 21 06/18/16 20:00 98.9 100 20 139/81 99 06/18/16 20:00 100 06/18/16 19:00 99 Room Air 06/18/16 18:00 113 06/18/16 18:00 99.4 113 26 104/59 97 06/18/16 17:00 102.4 113 21 127/79 97 06/18/16 16:00 102.7 125 21 149/81 97 06/18/16 16:00 125 06/18/16 14:00 119 06/18/16 12:00 98.4 109 22 158/79 96 06/18/16 12:00 109 06/19/16 07:00 Intake Total 1581 ml Output Total 1893 ml Balance -312 ml Constitutional Vital Signs Date Time Temp Pulse Resp B/P Pulse Ox O2 Delivery O2 Flow Rate FiO2 06/19/16 08:00 96 06/19/16 08:00 98.5 96 22 126/80 99 06/19/16 07:15 99 21 06/19/16 07:00 99 Room Air 06/19/16 06:00 90 06/19/16 04:00 99.0 84 22 109/67 99 06/19/16 04:00 84 06/19/16 02:00 86 06/19/16 00:00 78 06/19/16 00:00 99.0 78 22 144/81 98 06/18/16 22:00 100 06/18/16 21:05 100 21 06/18/16 20:00 98.9 100 20 139/81 99 06/18/16 20:00 100 06/18/16 19:00 99 Room Air 06/18/16 18:00 113 06/18/16 18:00 99.4 113 26 104/59 97 06/18/16 17:00 102.4 113 21 127/79 97 06/18/16 16:00 102.7 125 21 149/81 97 06/18/16 16:00 125 06/18/16 14:00 119 06/18/16 12:00 98.4 109 22 158/79 96 06/18/16 12:00 109 06/19/16 07:00 Intake Total 1581 ml Output Total 1893 ml Balance -312 ml (Anusha Hastings) Review of Systems/Exam Exam He is alert, oriented to name only, resting comfortably in bed. Speech is fluent but confused. follows few simple commands. Ventriculostomy drain in place, open at 0 cm H20. CSF is cloudy and slightly xanthochromic CN: gross EOMs intact. facial appears symmetric at rest moves grossly all four extremities, on upper extremity restraints Cerebellar: cannot assess due to clinical condition (Anusha Hastings) Medications Current Medications Current Medications Medications (Trade) Dose Ordered Sig/Paula Route PRN Reason Start Time Stop Time Status Last Admin Dose Admin Naloxone HCl (Narcan Inj) 0.4 mg UNSCH PRN IV SEE LABEL COMMENTS 05/29/16 15:00 Acetaminophen/ Butalbital/ Caffeine (Fioricet 325-50-40) 1 tab Q6H PRN PO PAIN GREATER THAN 5 or headach 05/29/16 15:00 06/16/16 08:09 Heparin Sodium (Porcine) (Heparin Inj) 5,000 units Q12HR SQ 05/29/16 21:00 06/19/16 08:38 Levetriacetam (Keppra) 500 mg Q12HR PO 05/29/16 21:00 06/19/16 08:37 Morphine Sulfate (Morphine Inj) 2 mg Q3H PRN IV PUSH BREAKTHROUGH PAIN 06/02/16 10:30 06/19/16 08:43 Diphenhydramine HCl (Benadryl 2% Cream) 1 applic TID PRN TOPICAL ITCHING 06/02/16 11:15 IV Flush (NS Flush) 2 ml UNSCH PRN IV FLUSH FLUSH AFTER USING IV ACCESS 06/03/16 09:45 IV Flush (NS Flush) 2 ml BID IV FLUSH 06/03/16 21:00 06/19/16 08:37 Acetaminophen (Tylenol) 650 mg Q6H PRN PO FEVER >100F 06/03/16 09:45 06/18/16 16:58 Ondansetron HCl (Zofran Inj) 4 mg Q6H PRN IV NAUSEA OR VOMITING 06/03/16 09:45 06/19/16 09:16 Docusate Sodium (Colace) 100 mg BID PO 06/03/16 21:00 06/17/16 20:06 Sennosides (Senokot) 17.2 mg BID PO 06/03/16 09:45 06/17/16 20:05 Miscellaneous Information 1 Q361D XX 06/03/16 09:45 Chlorhexidine Gluconate (Chlorhexidine 2% Cloth) Taper DAILY@04 TOP 06/04/16 04:00 05/31/17 03:59 06/18/16 04:00 Chlorhexidine Gluconate 3 pack 3 pack UNSCH PRN TOP HYGIENIC CARE 06/03/16 09:45 Thiamine HCl/ Sodium Chloride (Thiamine Inj/NS Inj) 101 ml @ 101 mls/hr DAILY IV 06/04/16 09:00 06/19/16 09:16 Polyethylene Glycol 17 gm 17 gm DAILY PO 06/04/16 09:00 Hold Sodium Chloride (NS 1000 ml Inj) 1,000 ml @ 100 mls/hr Q10H IV 06/03/16 21:16 Hold 06/05/16 22:23 Famotidine (Pepcid) 20 mg BID NG 06/04/16 09:00 06/19/16 08:37 Metoprolol Tartrate (Lopressor) 12.5 mg Q12HR PO 06/05/16 21:00 06/19/16 08:37 Quetiapine Fumarate (SEROquel) 25 mg BID PO 06/06/16 09:00 06/19/16 08:37 Loperamide HCl (Imodium Liq) 2 mg UNSCH PRN TUBE DIARRHEA 06/06/16 16:15 06/07/16 21:24 Diphenhydramine HCl (Benadryl Inj) 25 mg Q24H PRN IV PRE-MED PRIOR TO AMPHOTERCIN B 06/11/16 17:00 06/19/16 08:42 Hydrocortisone Sodium Succinate 25 mg 25 mg Q24H PRN IV PRE-MED PRIOR TO AMPHOTERCIN B 06/11/16 17:00 06/16/16 08:10 Amphotericin B Liposome 280 mg/ Dextrose 280 ml @ 125 mls/hr Q24H IV 06/12/16 15:00 06/18/16 15:56 Potassium Chloride 100 ml @ 50 mls/hr Q2H PRN IV For Potassium 2.8 - 3.2 mEq/L 06/12/16 07:15 Potassium Chloride (KCl 20 Meq Premix Inj) 100 ml @ 50 mls/hr Q2H PRN IV For Potassium 2.8 - 3.2 mEq/L 06/12/16 07:15 Potassium Chloride 40 meq 40 meq UNSCH PRN PO/TUBE For Potassium 3.3 - 3.5 mEq/L 06/12/16 07:15 06/19/16 05:13 Potassium Chloride 100 ml @ 25 mls/hr UNSCH PRN IV For Potassium 3.3 - 3.5 mEq/L 06/12/16 07:15 Potassium Chloride 100 ml @ 50 mls/hr Q2H PRN IV For Potassium 3.3 - 3.5 mEq/L 06/12/16 07:15 Magnesium Sulfate/ Sodium Chloride (Magnesium Sulfate Inj/NS Inj) 100 ml @ 50 mls/hr UNSCH PRN IV For Magnesium 0.9 - 1.1 mg/dL 06/12/16 07:15 Magnesium Oxide 800 mg 800 mg UNSCH PRN PO For Magnesium 1.2 - 1.6 mg/dL 06/12/16 07:15 Magnesium Sulfate/ Sodium Chloride (Magnesium Sulfate Inj/NS Inj) 100 ml @ 50 mls/hr UNSCH PRN IV For Magnesium 1.2 - 1.6 mg/dL 06/12/16 07:15 Potassium Phosphate 2000 mg 2,000 mg Q4H PRN PO For Phosphorus < 2.5 mg/dL 06/12/16 07:15 Sodium Phosphate/ Sodium Chloride (Sodium Phosphate Inj/NS 250 ml Inj) 250 ml @ 42 mls/hr UNSCH PRN IV For Phosphorus < 2.5 mg/dL 06/12/16 07:15 Potassium Chloride (KCl 40 Meq/30 ml Liq) 40 meq UNSCH PRN PO/TUBE SEE LABEL COMMENTS 06/12/16 07:15 Potassium Phosphate 2000 mg 2,000 mg UNSCH PRN PO/TUBE SEE LABEL COMMENTS 12/8/16 07:15 Potassium Phosphate/Sodium Chloride (Potassium Phosphate Inj/NS 250 ml Inj) 260 ml @ 42 mls/hr UNSCH PRN IV SEE LABEL COMMENTS 06/12/16 07:15 Amphotericin B (Amphotericin B Conv Inj) 1 mg Q24H OTHER 06/13/16 09:00 06/19/16 09:17 Water (Free Water) 200 ml Q6HR G-TUBE 06/16/16 12:00 06/19/16 05:11 (Anusha Hastings) Medical Decision Making MDM Remarks 55 y/o male s/p posterior fossa craniectomy for evacuation of cerebellar bleed due to AVM with embolization at [facility] s/p ventriculostomy placement for CSF leak ventriculitis with growth of Hermila, replacement of ventriculostomy drain , started intraventricular Ampho B tx 06/12/16 (Anusha Hastings) Plan Plan Remarks cont daily intraventricular administration ampho b per ID keep EVD draining at 0 cm H20 cont daily therapy serial neuro checks final CSF cultures 06/16 still pending Dose 8 Intraventricular Ampho B given today (Anusha Hastings) Attending Statement The exam, history, and the medical decision-making described in the above note were completed with the assistance of the mid-level provider. I reviewed and agree with the findings presented. I attest that I had a [id number] encounter with the patient on the same day, and personally performed and documented my assessment and findings in the medical record. (John Flowers MD) Anusha Hastings Jun 19, 2016 10:07 John Flowers MD Jun 20, 2016 08:34
[2016-06-19] MEDS ORDERED: PHARMACY ORDERED LAB XX ONE (11:45)
--- NOTE | 2016-06-19 14:35 | HHI.CCPN ---
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 The patient underwent placement of right frontal external ventricular drain for acute hydrocephalus and was transferred to [facility] for further treatment of the AVM by embolization followed by suboccipital craniotomy for hematoma evacuation and AVM resection. Postoperatively, he was slow to wake up, his EVD was Clamped and removed and his mental status was improving. Other complications include the UTI and agitation. He was started on Rocephin and Seroquel. The patient is being transferred back to [facility] due to confusion and questionable CSF leak. 06/03: Noted AVM embolization followed by suboccipital craniotomy for hematoma evacuation and AVM resection. Postoperatively, he was slow to wake up and a head CT showed herniation.. Noted CT last night revealed status post partial occipital craniotomy changes with Coils. Currently afebrile. Arousable and will follow commands but won't open eyes. Noted to have leaking from the occipital region plan to go back to or for suturing with neurosurgery. 06/04: Tmax 99. 3 problems overnight. Received 1 dose of Cafergot overnight for headache. Noted placement of a right ventriculostomy secondary to CSF leak yesterday. Patient is arousable. Tolerating tube feeding currently. 06/05: Afebrile. Mentation somewhat improved. Positive BM 4. Tolerating tube feeding. Will follow commands. Answers questions appropriately. 06/06: Afebrile. Sitting up in chair yesterday no acute distress. Positive BM 8 yesterday. Tolerating tube feeding. Follows commands. Still confused but answers questions appropriately. 06/07: Tmax 99. Currently on 2 L nasal cannula. Awake and alert to person only. No more CSF leak overnight. One to 2 word answers per his norm. 8 bowel movements negative C. difficile. 06/08: Tmax 99. Currently on room air. Awake and alert to person. No CSF leak. For bowel movements overnight. Noted that ventricular drain currently at 0 cm H2O 06/09: Tmax 102.2. WBC 12,000. Tolerating TFs. 06/10: Tmax 99.7. WBC declining. CT Head no change, some resolution of air in posterior fossa. TFs continue. 3/4 bottles blood positive for GPC. 06/11: Budding yeast, pseudohyphae in CSF. Enterococcus in blood. Mentation unchanged. ID consulted. 06/12: Started on Liposomal Ampho B, premedicated for mild reaction. Mentation unchanged. 06/13: Tolerating Amph B, headache only complaint. 06/14: Tolerating anti-fungal agent infused through ventric. ID guiding therapy. 06/15: A little dry - hydrate with NS bolus. Continue TFs. 06/16: continues to clinically appear slightly volume deplete. increasing free water to 200 q6h per tube. otherwise no significant change. continues to have agitated delirium, but neuro status is so labile, we are holding pharmacologic therapies. 06/17: csf cultured yesterday. continues to do well, except for delirium, which is stable. still only oriented to person. 06/18: csf gram stain with rare budding yeast. delirium stable. 06/19: spiked fever yesterday. wbc slightly uptrended today. repeat blood cultures sent yesterday. Per ID, fever likely 2/2 vanc. otherwise, stable neuro exam. Objective Vital Signs Date Time Temp Pulse Resp B/P Pulse Ox O2 Delivery O2 Flow Rate FiO2 06/19/16 14:00 74 06/19/16 12:00 97.6 17 134/88 100 06/19/16 07:15 21 06/19/16 07:00 Room Air Intake and Output 06/18/16 06/18/16 06/19/16 08:00 16:00 00:00 Intake Total 1130 ml 766 ml 360 ml Output Total 530.0 ml 702 ml 479 ml Balance 600.0 ml 64 ml -119 ml Result Diagram: 06/19/16 0311 06/19/16 0311 Other Results Microbiology Date/Time Procedure Status Source Growth 06/16/16 16:30 Gram Stain - Final Complete Cerebral Spinal Fluid Shunt Fluid 06/16/16 16:30 CSF Culture - Final Complete Cerebral Spinal Fluid Shunt Fluid NO GROWTH IN 72 HOURS Imaging Last Impressions Head CT 06/02/16 0000 Signed Impressions: Service Date/Time: Thursday, June 02, 2016 20:00 - CONCLUSION: Postoperative partial occipital craniectomy for treatment of arteriovenous malformation with vascular coils present in the operative bed. There is encephalomalacia in the posterior fossa involving the posterior cerebellum more so on the left side. No new intracranial hemorrhage. Resolution of previous intraventricular hemorrhage. Removal of previous ventriculostomy. Kirk Cortes MD Objective Remarks GENERAL: 55-year-old male, remains conversant and active. Confused. SKIN: Warm and dry. No rashes. HEAD: Dry posterior wound, clean, healing well.. New right ventriculostomy placed 06/12. NECK: Supple. No obstruction. Airway widely patent. CARDIOVASCULAR: RRR. S1, S2. Without murmurs, or rubs. No JVD. RESPIRATORY: Few mobile secretions, clear with cough. Normal excursions. GASTROINTESTINAL: Abdomen soft, non-tender, nondistended. MUSCULOSKELETAL: Warm, well perfused. Neuro: Moves all 4 extremities spontaneously. Opening his eyes to voice, oriented to self. Active movement all 4 limbs. Conversant. follows commands. A/P Problem List: (1) AVM (arteriovenous malformation) brain ICD Code: Q28.2 Status: Acute (2) Encephalopathy, traumatic ICD Code: F07.81 Status: Acute (3) UTI (urinary tract infection) ICD Code: N39.0 Status: Acute (4) Agitation ICD Code: R45.1 Status: Acute (5) Cerebellar hemorrhage ICD Code: I61.4 Status: Acute Assessment and Plan Neurologic/Psych: Intracranial hemorrhage Pial AVM Subarachnoid hemorrhage Mild Encephalopathy CSF leak?? - status post AVM embolization followed by suboccipital craniotomy for hematoma evacuation and AVM resection at [facility]. Postoperatively, he was slow to wake up and a head CT showed herniation. - Neurosurgery following, Dr. Flowers. Status post right ventriculostomy 06/03, replaced 06/12 due to Hermila CSF infection. - Keppra 500 mg twice a day for seizure prophylaxis - CT of head 06/02 revealed partial occipital craniotomy with coiling. - EEG 06/03 read as normal. No seizure activity. - Interactive Respiratory: - NC to maintain saturations greater than equal to 92% - Incentive spirometry while awake when he'll cooperate. - OOB daily with PT. Cardiovascular: Hypertension - Metoprol currently 12.5 milligrams by mouth twice a day. - continue Telemetry Renal: - Strict I/Os - attempt euvolemia - Keep well hydrated during Ampho B infusion. FEN/GI: Acute protein calorie malnutritionmild Hypernatremia Diarrhea- resolved intravascular volume depletion- resolving - Currently on Jevity 1.5 goal 50 cc an hour - continue free water 200 cc every 6 - ICU electrolyte protocol - Pepcid for GI prophylaxis - Colace/MiraLAX for bowel regimen held with diarrhea, this is now resolved. if no BM today will restart. - C. difficile negative - Check prealbumin -> 19, better than expected, continue TFs as ordered. Added benepro bid. Heme Normocytic anemia - Does not meet transfusion triggers at this time. - Daily CBC ID Hermila Ventriculitis Enterococcus Bacteremia - CSF and blood positive Pertinent cultures 06/03 - CSF - no organisms, NGTD 06/06: Blood Enterococcus -> vancomycin 06/10 06/10: CSF -> Hermila 06/16: CSF surveilance cultures: Gram stain with budding yeast, though after discussion with Dr. Babin, this is only a few days after implementation of intraventric Ampho, so not unusual. We will plan to repeat surveilance CSF cultures in 7 days (06/25). 06/18: blood cultures: pending. Continue AmphoB intra-ventric and IV Continue Vanc IV - stop date 06/24. 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 Will need long-term antifungal therapy. Continue hydration today. OOB with excercise to prevent deconditioning. Problem Qualifiers (1) UTI (urinary tract infection): (2) Cerebellar hemorrhage: Qualified Code: I61.4 - Nontraumatic intracerebral hemorrhage of cerebellum, unspecified laterality Orlando Ibrahim MD Jun 19, 2016 14:34
[2016-06-19] MEDS: DEXTROSE 5% IV SCH ×2 (15:34)
[2016-06-19] MEDS: WATER IV SCH ×2 (15:34)
[2016-06-19] MEDS: AMPHOTERICIN B LIPOSOME IV SCH ×2 (15:34)
[2016-06-20] VITALS (12 sets, daily range): BP systolic 104–153; BP diastolic 60–92; PULSE 70–88; RESP 10–20; TEMP 97.8–99.2; O2SAT 100
[2016-06-20] MEDS: FREE WATER G-TUBE SCH ×4 (01:58→18:42)
[2016-06-20] MEDS: CHLORHEXIDINE GLUCONATE 2 % 1 PACK (2 CLOTHS) TOP SCH (01:58)
[2016-06-20 04:09] LABS: HEMATOCRIT 27.4 % (39.0-51.0); MEAN CELL VOLUME 90.2 FL (80.0-100.0); MEAN CORPUSCULAR HEMOGLOBIN 30.5 PG (27.0-34.0); MEAN CORPUSCULAR HGB CONC 33.8 % (32.0-36.0); PLATELET COUNT 354 TH/MM3 (150-450); RED BLOOD COUNT 3.04 MIL/MM3 (4.50-5.90); RED CELL DISTRIBUTION WIDTH 13.7 % (11.6-17.2); REVIEW FLAG FINAL
[2016-06-20 04:31] LABS: BICARBONATE 31.5 MEQ/L (21.0-32.0); POTASSIUM 3.4 MEQ/L (3.5-5.1)
[2016-06-20] MEDS: FAMOTIDINE 20 MG TAB NG SCH ×2 (07:57→21:05)
[2016-06-20] MEDS: HEPARIN SODIUM - SQ 10,000 UNITS/ML VIAL SQ SCH ×2 (07:57→21:05)
[2016-06-20] MEDS: levETIRAcetam 500 MG TAB PO SCH ×2 (07:58→21:05)
[2016-06-20] MEDS: POTASSIUM CL 40 MEQ/30 ML LIQ UDC PO/TUBE PRN (07:58)
[2016-06-20] MEDS: SODIUM CHLORIDE 0.9% FLUSH 5 ML FLUSH IV FLUSH SCH ×2 (07:58→21:06)
[2016-06-20] MEDS: METOPROLOL TARTRATE 25 MG TAB PO SCH ×2 (07:58→21:05)
[2016-06-20] MEDS: QUEtiapine FUMARATE 25 MG TAB PO SCH ×2 (07:58→21:05)
[2016-06-20] MEDS: THIAMINE INJ 100 MG in SODIUM CHLORIDE 0.9% INJ 100 ML IV SCH (07:59)
[2016-06-20] MEDS: AMPHOTERICIN B 50 MG OTHER SCH (08:27)
[2016-06-20] MEDS: diphenhydrAMINE HCL 50 MG/ML VIAL IV PRN (08:28)
[2016-06-20] MEDS: ONDANSETRON HCL 4 MG/2 ML VIAL IV PRN (08:28)
[2016-06-20] MEDS: MORPHINE SULFATE 4 MG/ML INJ IV PUSH PRN (08:28)
[2016-06-20] MEDS: DOCUSATE SODIUM 100 MG CAP PO SCH ×2 (09:00→21:05)
[2016-06-20] MEDS: SENNOSIDES 8.6 MG TAB PO SCH ×2 (09:00→21:05)
--- NOTE | 2016-06-20 09:23 | HHI.NSPN ---
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 The patient underwent placement of right frontal external ventricular drain for acute hydrocephalus and was transferred to [facility] for further treatment of the AVM by embolization followed by suboccipital craniotomy for hematoma evacuation, and AVM resection at [facility] . Postoperatively, he was slow to wake up, his EVD was Clamped and removed at [facility] and his mental status was improving. He had UTI and agitation. He was started on Rocephin and Seroquel. The patient was being transferred back to [facility] due to confusion and CSF leak. 06/04: s/p placement of ventriculostomy drain. no further leaking noted from posterior fossa wound, there has been scab formation also. 06/05: no wound leak seen 06/06: appears more awake today, wound dry, no evidence of CSF leaking overnight 06/09: wound dry, sitting up in chair eating breakfast 06/10: follow up CT Brain reviewed 06/11: prelim CSF testing shows elevated WBCs, proteins with low glucose, 06/12: CSF showing fungal growth, intraventricular ampho b ordered 06/13: EVD draining, no significant changes to neuro checks overnight 06/16: neuro checks stable overnight, alert, pleasantly confused today 06/17: intermittently confused, working with PT, repeat CSF cx pending 06/18: intermittent complaints of headaches yesterday, currently denies HAs, moves all four extremities, reported no allergic type rx following administration of intraventric ampho 06/19: reported SCHULTZ following ampho b adminstration that resolves, no changed in mental status or neuro checks 06/20: pleasantly confused, neuro checks stable overnight. (Anusha Hastings) Labs, Micro, & Vital Signs Results Date Time Temp Pulse Resp B/P Pulse Ox O2 Delivery O2 Flow Rate FiO2 06/20/16 06:00 82 06/20/16 04:00 97.9 78 16 104/60 100 06/20/16 04:00 82 06/20/16 02:00 70 06/20/16 00:00 98.4 82 16 153/92 100 06/20/16 00:00 82 06/19/16 22:00 62 06/19/16 20:00 97.8 74 13 144/73 100 06/19/16 20:00 74 06/19/16 19:00 100 Room Air 06/19/16 18:00 60 06/19/16 16:00 71 06/19/16 16:00 98.1 71 12 133/78 100 06/19/16 14:00 74 06/19/16 12:00 97.6 74 17 134/88 100 06/19/16 12:00 74 06/19/16 10:00 64 06/20/16 07:00 Intake Total 1831 ml Output Total 1600 ml Balance 231 ml Constitutional Vital Signs Date Time Temp Pulse Resp B/P Pulse Ox O2 Delivery O2 Flow Rate FiO2 06/20/16 06:00 82 06/20/16 04:00 97.9 78 16 104/60 100 06/20/16 04:00 82 06/20/16 02:00 70 06/20/16 00:00 98.4 82 16 153/92 100 06/20/16 00:00 82 06/19/16 22:00 62 06/19/16 20:00 97.8 74 13 144/73 100 06/19/16 20:00 74 06/19/16 19:00 100 Room Air 06/19/16 18:00 60 06/19/16 16:00 71 06/19/16 16:00 98.1 71 12 133/78 100 06/19/16 14:00 74 06/19/16 12:00 97.6 74 17 134/88 100 06/19/16 12:00 74 06/19/16 10:00 64 06/20/16 07:00 Intake Total 1831 ml Output Total 1600 ml Balance 231 ml (Anusha Hastings) Review of Systems/Exam Exam He is alert, oriented to name only, pleasantly confused. follows few simple commands. No apparent distress. surgical wound dry Ventriculostomy drain in place, open at 0 cm H20. CSF is cloudy and slightly xanthochromic CN: pupils 3 mm equal, gross EOMs intact. facial appears symmetric at rest, tongue midline Motor: moves grossly all four extremities symmetrically to command, on upper extremity restraints and hand mittens Cerebellar: cannot assess due to clinical condition (Anusha Hastings) Medications Current Medications Current Medications Medications (Trade) Dose Ordered Sig/Paula Route PRN Reason Start Time Stop Time Status Last Admin Dose Admin Naloxone HCl (Narcan Inj) 0.4 mg UNSCH PRN IV SEE LABEL COMMENTS 05/29/16 15:00 Acetaminophen/ Butalbital/ Caffeine (Fioricet 325-50-40) 1 tab Q6H PRN PO PAIN GREATER THAN 5 or headach 05/29/16 15:00 06/16/16 08:09 Heparin Sodium (Porcine) (Heparin Inj) 5,000 units Q12HR SQ 05/29/16 21:00 06/20/16 07:57 Levetriacetam (Keppra) 500 mg Q12HR PO 05/29/16 21:00 06/20/16 07:58 Morphine Sulfate (Morphine Inj) 2 mg Q3H PRN IV PUSH BREAKTHROUGH PAIN 06/02/16 10:30 06/20/16 08:28 Diphenhydramine HCl (Benadryl 2% Cream) 1 applic TID PRN TOPICAL ITCHING 06/02/16 11:15 IV Flush (NS Flush) 2 ml UNSCH PRN IV FLUSH FLUSH AFTER USING IV ACCESS 06/03/16 09:45 IV Flush (NS Flush) 2 ml BID IV FLUSH 06/03/16 21:00 06/20/16 07:58 Acetaminophen (Tylenol) 650 mg Q6H PRN PO FEVER >100F 06/03/16 09:45 06/18/16 16:58 Ondansetron HCl (Zofran Inj) 4 mg Q6H PRN IV NAUSEA OR VOMITING 06/03/16 09:45 06/20/16 08:28 Docusate Sodium (Colace) 100 mg BID PO 06/03/16 21:00 06/17/16 20:06 Sennosides (Senokot) 17.2 mg BID PO 06/03/16 09:45 06/17/16 20:05 Miscellaneous Information 1 Q361D XX 06/03/16 09:45 Chlorhexidine Gluconate (Chlorhexidine 2% Cloth) Taper DAILY@04 TOP 06/04/16 04:00 05/31/17 03:59 06/18/16 04:00 Chlorhexidine Gluconate 3 pack 3 pack UNSCH PRN TOP HYGIENIC CARE 06/03/16 09:45 Thiamine HCl/ Sodium Chloride (Thiamine Inj/NS Inj) 101 ml @ 101 mls/hr DAILY IV 06/04/16 09:00 06/20/16 07:59 Polyethylene Glycol 17 gm 17 gm DAILY PO 06/04/16 09:00 Hold Sodium Chloride (NS 1000 ml Inj) 1,000 ml @ 100 mls/hr Q10H IV 06/03/16 21:16 Hold 06/05/16 22:23 Famotidine (Pepcid) 20 mg BID NG 06/04/16 09:00 06/20/16 07:57 Metoprolol Tartrate (Lopressor) 12.5 mg Q12HR PO 06/05/16 21:00 06/20/16 07:58 Quetiapine Fumarate (SEROquel) 25 mg BID PO 06/06/16 09:00 06/20/16 07:58 Loperamide HCl (Imodium Liq) 2 mg UNSCH PRN TUBE DIARRHEA 06/06/16 16:15 06/07/16 21:24 Diphenhydramine HCl (Benadryl Inj) 25 mg Q24H PRN IV PRE-MED PRIOR TO AMPHOTERCIN B 06/11/16 17:00 06/20/16 08:28 Hydrocortisone Sodium Succinate 25 mg 25 mg Q24H PRN IV PRE-MED PRIOR TO AMPHOTERCIN B 06/11/16 17:00 06/16/16 08:10 Amphotericin B Liposome 280 mg/ Dextrose 280 ml @ 125 mls/hr Q24H IV 06/12/16 15:00 06/19/16 15:34 Potassium Chloride 100 ml @ 50 mls/hr Q2H PRN IV For Potassium 2.8 - 3.2 mEq/L 06/12/16 07:15 Potassium Chloride (KCl 20 Meq Premix Inj) 100 ml @ 50 mls/hr Q2H PRN IV For Potassium 2.8 - 3.2 mEq/L 06/12/16 07:15 Potassium Chloride 40 meq 40 meq UNSCH PRN PO/TUBE For Potassium 3.3 - 3.5 mEq/L 06/12/16 07:15 06/20/16 07:58 Potassium Chloride 100 ml @ 25 mls/hr UNSCH PRN IV For Potassium 3.3 - 3.5 mEq/L 06/12/16 07:15 Potassium Chloride 100 ml @ 50 mls/hr Q2H PRN IV For Potassium 3.3 - 3.5 mEq/L 06/12/16 07:15 Magnesium Sulfate/ Sodium Chloride (Magnesium Sulfate Inj/NS Inj) 100 ml @ 50 mls/hr UNSCH PRN IV For Magnesium 0.9 - 1.1 mg/dL 06/12/16 07:15 Magnesium Oxide 800 mg 800 mg UNSCH PRN PO For Magnesium 1.2 - 1.6 mg/dL 06/12/16 07:15 Magnesium Sulfate/ Sodium Chloride (Magnesium Sulfate Inj/NS Inj) 100 ml @ 50 mls/hr UNSCH PRN IV For Magnesium 1.2 - 1.6 mg/dL 06/12/16 07:15 Potassium Phosphate 2000 mg 2,000 mg Q4H PRN PO For Phosphorus < 2.5 mg/dL 06/12/16 07:15 Sodium Phosphate/ Sodium Chloride (Sodium Phosphate Inj/NS 250 ml Inj) 250 ml @ 42 mls/hr UNSCH PRN IV For Phosphorus < 2.5 mg/dL 06/12/16 07:15 Potassium Chloride (KCl 40 Meq/30 ml Liq) 40 meq UNSCH PRN PO/TUBE SEE LABEL COMMENTS 06/12/16 07:15 Potassium Phosphate 2000 mg 2,000 mg UNSCH PRN PO/TUBE SEE LABEL COMMENTS 06/12/16 07:15 Potassium Phosphate/Sodium Chloride (Potassium Phosphate Inj/NS 250 ml Inj) 260 ml @ 42 mls/hr UNSCH PRN IV SEE LABEL COMMENTS 06/12/16 07:15 Amphotericin B (Amphotericin B Conv Inj) 1 mg Q24H OTHER 06/13/16 09:00 06/20/16 08:27 Water (Free Water) 200 ml Q6HR G-TUBE 06/16/16 12:00 06/20/16 05:33 (Anusha Hastings) Medical Decision Making MDM Remarks 55 y/o male s/p posterior fossa craniectomy for evacuation of cerebellar bleed due to AVM with embolization at [facility] s/p ventriculostomy placement for CSF leak ventriculitis with growth of Hermila, replacement of ventriculostomy drain , started intraventricular Ampho B tx 06/12/16 (Anusha Hastings) Plan Plan Remarks cont daily intraventricular administration ampho b per ID keep EVD draining at 0 cm H20 cont daily therapy serial neuro checks final CSF cultures 06/16 still pending Dose 9 Intraventricular Ampho B given today (Anusha Hastings) Attending Statement The exam, history, and the medical decision-making described in the above note were completed with the assistance of the mid-level provider. I reviewed and agree with the findings presented. I attest that I had a [id number] encounter with the patient on the same day, and personally performed and documented my assessment and findings in the medical record. (John Flowers MD) Anusha Hastings Jun 20, 2016 09:23 John Flowers MD Jun 20, 2016 13:08
[2016-06-20] MEDS: WATER IV SCH ×2 (14:59)
[2016-06-20] MEDS: AMPHOTERICIN B LIPOSOME IV SCH ×2 (14:59)
[2016-06-20] MEDS: DEXTROSE 5% IV SCH ×2 (14:59)
--- NOTE | 2016-06-20 17:26 | HHI.CCPN ---
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 The patient underwent placement of right frontal external ventricular drain for acute hydrocephalus and was transferred to [facility] for further treatment of the AVM by embolization followed by suboccipital craniotomy for hematoma evacuation and AVM resection. Postoperatively, he was slow to wake up, his EVD was Clamped and removed and his mental status was improving. Other complications include the UTI and agitation. He was started on Rocephin and Seroquel. The patient is being transferred back to [facility] due to confusion and questionable CSF leak. 06/03: Noted AVM embolization followed by suboccipital craniotomy for hematoma evacuation and AVM resection. Postoperatively, he was slow to wake up and a head CT showed herniation.. Noted CT last night revealed status post partial occipital craniotomy changes with Coils. Currently afebrile. Arousable and will follow commands but won't open eyes. Noted to have leaking from the occipital region plan to go back to or for suturing with neurosurgery. 06/04: Tmax 99. 3 problems overnight. Received 1 dose of Cafergot overnight for headache. Noted placement of a right ventriculostomy secondary to CSF leak yesterday. Patient is arousable. Tolerating tube feeding currently. 06/05: Afebrile. Mentation somewhat improved. Positive BM 4. Tolerating tube feeding. Will follow commands. Answers questions appropriately. 06/06: Afebrile. Sitting up in chair yesterday no acute distress. Positive BM 8 yesterday. Tolerating tube feeding. Follows commands. Still confused but answers questions appropriately. 06/07: Tmax 99. Currently on 2 L nasal cannula. Awake and alert to person only. No more CSF leak overnight. One to 2 word answers per his norm. 8 bowel movements negative C. difficile. 06/08: Tmax 99. Currently on room air. Awake and alert to person. No CSF leak. For bowel movements overnight. Noted that ventricular drain currently at 0 cm H2O 06/09: Tmax 102.2. WBC 12,000. Tolerating TFs. 06/10: Tmax 99.7. WBC declining. CT Head no change, some resolution of air in posterior fossa. TFs continue. 3/4 bottles blood positive for GPC. 06/11: Budding yeast, pseudohyphae in CSF. Enterococcus in blood. Mentation unchanged. ID consulted. 06/12: Started on Liposomal Ampho B, premedicated for mild reaction. Mentation unchanged. 06/13: Tolerating Amph B, headache only complaint. 06/14: Tolerating anti-fungal agent infused through ventric. ID guiding therapy. 06/15: A little dry - hydrate with NS bolus. Continue TFs. 06/16: continues to clinically appear slightly volume deplete. increasing free water to 200 q6h per tube. otherwise no significant change. continues to have agitated delirium, but neuro status is so labile, we are holding pharmacologic therapies. 06/17: csf cultured yesterday. continues to do well, except for delirium, which is stable. still only oriented to person. 06/18: csf gram stain with rare budding yeast. delirium stable. 06/19: spiked fever yesterday. wbc slightly uptrended today. repeat blood cultures sent yesterday. Per ID, fever likely 2/2 vanc. otherwise, stable neuro exam. 06/20: repeat bcx NGTD. stable neuro exam. Objective Vital Signs Date Time Temp Pulse Resp B/P Pulse Ox O2 Delivery O2 Flow Rate FiO2 06/20/16 16:00 99.2 83 14 134/78 100 06/20/16 07:00 Room Air 06/19/16 07:15 21 Intake and Output 06/19/16 06/19/16 06/20/16 08:00 16:00 00:00 Intake Total 455 ml 502 ml 845 ml Output Total 712 ml 400 ml 405 ml Balance -257 ml 102 ml 440 ml Result Diagram: 06/20/16 0328 06/20/16 0328 Imaging Last Impressions Head CT 06/02/16 0000 Signed Impressions: Service Date/Time: Thursday, June 02, 2016 20:00 - CONCLUSION: Postoperative partial occipital craniectomy for treatment of arteriovenous malformation with vascular coils present in the operative bed. There is encephalomalacia in the posterior fossa involving the posterior cerebellum more so on the left side. No new intracranial hemorrhage. Resolution of previous intraventricular hemorrhage. Removal of previous ventriculostomy. Kirk Cortes MD Objective Remarks GENERAL: 55-year-old male, remains conversant and active. Confused. SKIN: Warm and dry. No rashes. HEAD: Dry posterior wound, clean, healing well.. New right ventriculostomy placed 06/12. NECK: Supple. No obstruction. Airway widely patent. CARDIOVASCULAR: RRR. S1, S2. Without murmurs, or rubs. No JVD. RESPIRATORY: Few mobile secretions, clear with cough. Normal excursions. GASTROINTESTINAL: Abdomen soft, non-tender, nondistended. MUSCULOSKELETAL: Warm, well perfused. Neuro: Moves all 4 extremities spontaneously. Opening his eyes to voice, oriented to self. Active movement all 4 limbs. Conversant. follows commands. A/P Problem List: (1) AVM (arteriovenous malformation) brain ICD Code: Q28.2 Status: Acute (2) Encephalopathy, traumatic ICD Code: F07.81 Status: Acute (3) UTI (urinary tract infection) ICD Code: N39.0 Status: Acute (4) Agitation ICD Code: R45.1 Status: Acute (5) Cerebellar hemorrhage ICD Code: I61.4 Status: Acute Assessment and Plan Neurologic/Psych: Intracranial hemorrhage Pial AVM Subarachnoid hemorrhage Mild Encephalopathy CSF leak?? - status post AVM embolization followed by suboccipital craniotomy for hematoma evacuation and AVM resection at [facility]. Postoperatively, he was slow to wake up and a head CT showed herniation. - Neurosurgery following, Dr. Flowers. Status post right ventriculostomy 06/03, replaced 06/12 due to Hermila CSF infection. - Keppra 500 mg twice a day for seizure prophylaxis - CT of head 06/02 revealed partial occipital craniotomy with coiling. - EEG 06/03 read as normal. No seizure activity. - Interactive Respiratory: - NC to maintain saturations greater than equal to 92% - Incentive spirometry while awake when he'll cooperate. - OOB daily with PT. Cardiovascular: Hypertension - Metoprol currently 12.5 milligrams by mouth twice a day. - continue Telemetry Renal: - Strict I/Os - attempt euvolemia - Keep well hydrated during Ampho B infusion. FEN/GI: Acute protein calorie malnutritionmild Hypernatremia Diarrhea- resolved intravascular volume depletion- resolving - Currently on Jevity 1.5 goal 50 cc an hour - continue free water 200 cc every 6 - ICU electrolyte protocol - Pepcid for GI prophylaxis - Colace/MiraLAX for bowel regimen held with diarrhea, this is now resolved. if no BM today will restart. - C. difficile negative - Check prealbumin -> 19, better than expected, continue TFs as ordered. Added benepro bid. Heme Normocytic anemia - Does not meet transfusion triggers at this time. - Daily CBC ID Hermila Ventriculitis Enterococcus Bacteremia - CSF and blood positive Pertinent cultures 06/03 - CSF - no organisms, NGTD 06/06: Blood Enterococcus -> vancomycin 06/10 06/10: CSF -> Hermila 06/16: CSF surveilance cultures: Gram stain with budding yeast, though after discussion with Dr. Babin, this is only a few days after implementation of intraventric Ampho, so not unusual. We will plan to repeat surveilance CSF cultures in 7 days (06/25). 06/18: blood cultures: pending. Continue AmphoB intra-ventric and IV Continue Vanc IV - stop date 06/24. 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 Will need long-term antifungal therapy. Continue hydration today. OOB with excercise to prevent deconditioning. Problem Qualifiers (1) UTI (urinary tract infection): (2) Cerebellar hemorrhage: Qualified Code: I61.4 - Nontraumatic intracerebral hemorrhage of cerebellum, unspecified laterality Orlando Ibrahim MD Jun 20, 2016 17:26
[2016-06-21] VITALS (12 sets, daily range): BP systolic 100–151; BP diastolic 60–89; PULSE 8–93; RESP 11–15; TEMP 97.9–98.8; O2SAT 100
[2016-06-21] MEDS: CHLORHEXIDINE GLUCONATE 2 % 1 PACK (2 CLOTHS) TOP SCH (03:44)
[2016-06-21 05:24] LABS: HEMATOCRIT 32.2 % (39.0-51.0); MEAN CELL VOLUME 90.8 FL (80.0-100.0); MEAN CORPUSCULAR HEMOGLOBIN 30.3 PG (27.0-34.0); MEAN CORPUSCULAR HGB CONC 33.4 % (32.0-36.0); PLATELET COUNT 447 TH/MM3 (150-450); RED BLOOD COUNT 3.54 MIL/MM3 (4.50-5.90); RED CELL DISTRIBUTION WIDTH 14.2 % (11.6-17.2); REVIEW FLAG FINAL; WHITE BLOOD COUNT 8.9 TH/MM3 (4.0-11.0)
[2016-06-21] MEDS: FREE WATER G-TUBE SCH ×4 (05:52→17:21)
[2016-06-21 05:55] LABS: BICARBONATE 28.3 MEQ/L (21.0-32.0)
--- NOTE | 2016-06-21 07:27 | HHI.CCPN ---
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 The patient underwent placement of right frontal external ventricular drain for acute hydrocephalus and was transferred to [facility] for further treatment of the AVM by embolization followed by suboccipital craniotomy for hematoma evacuation and AVM resection. Postoperatively, he was slow to wake up, his EVD was Clamped and removed and his mental status was improving. Other complications include the UTI and agitation. He was started on Rocephin and Seroquel. The patient is being transferred back to [facility] due to confusion and questionable CSF leak. 06/03: Noted AVM embolization followed by suboccipital craniotomy for hematoma evacuation and AVM resection. Postoperatively, he was slow to wake up and a head CT showed herniation.. Noted CT last night revealed status post partial occipital craniotomy changes with Coils. Currently afebrile. Arousable and will follow commands but won't open eyes. Noted to have leaking from the occipital region plan to go back to or for suturing with neurosurgery. 06/04: Tmax 99. 3 problems overnight. Received 1 dose of Cafergot overnight for headache. Noted placement of a right ventriculostomy secondary to CSF leak yesterday. Patient is arousable. Tolerating tube feeding currently. 06/05: Afebrile. Mentation somewhat improved. Positive BM 4. Tolerating tube feeding. Will follow commands. Answers questions appropriately. 06/06: Afebrile. Sitting up in chair yesterday no acute distress. Positive BM 8 yesterday. Tolerating tube feeding. Follows commands. Still confused but answers questions appropriately. 06/07: Tmax 99. Currently on 2 L nasal cannula. Awake and alert to person only. No more CSF leak overnight. One to 2 word answers per his norm. 8 bowel movements negative C. difficile. 06/08: Tmax 99. Currently on room air. Awake and alert to person. No CSF leak. For bowel movements overnight. Noted that ventricular drain currently at 0 cm H2O 06/09: Tmax 102.2. WBC 12,000. Tolerating TFs. 06/10: Tmax 99.7. WBC declining. CT Head no change, some resolution of air in posterior fossa. TFs continue. 3/4 bottles blood positive for GPC. 06/11: Budding yeast, pseudohyphae in CSF. Enterococcus in blood. Mentation unchanged. ID consulted. 06/12: Started on Liposomal Ampho B, premedicated for mild reaction. Mentation unchanged. 06/13: Tolerating Amph B, headache only complaint. 06/14: Tolerating anti-fungal agent infused through ventric. ID guiding therapy. 06/15: A little dry - hydrate with NS bolus. Continue TFs. 06/16: continues to clinically appear slightly volume deplete. increasing free water to 200 q6h per tube. otherwise no significant change. continues to have agitated delirium, but neuro status is so labile, we are holding pharmacologic therapies. 06/17: csf cultured yesterday. continues to do well, except for delirium, which is stable. still only oriented to person. 06/18: csf gram stain with rare budding yeast. delirium stable. 06/19: spiked fever yesterday. wbc slightly uptrended today. repeat blood cultures sent yesterday. Per ID, fever likely 2/2 vanc. otherwise, stable neuro exam. 06/20: repeat bcx NGTD. stable neuro exam. 06/21: No acute issues overnight, no fever. EVD has drained 70 mL clear fluid in 24 hours. Patient remains oriented to person Objective Vital Signs Date Time Temp Pulse Resp B/P Pulse Ox O2 Delivery O2 Flow Rate FiO2 06/21/16 04:00 84 06/21/16 00:00 97.9 11 137/80 100 06/20/16 19:00 Room Air 06/19/16 07:15 21 Intake and Output 06/20/16 06/20/16 06/20/16 07:59 15:59 23:59 Intake Total 484 ml 740 ml 702 ml Output Total 795 ml 367 ml 253 ml Balance -311 ml 373 ml 449 ml Result Diagram: 06/21/16 0335 06/21/16 0335 Imaging Last Impressions Head CT 06/02/16 0000 Signed Impressions: Service Date/Time: Thursday, June 02, 2016 20:00 - CONCLUSION: Postoperative partial occipital craniectomy for treatment of arteriovenous malformation with vascular coils present in the operative bed. There is encephalomalacia in the posterior fossa involving the posterior cerebellum more so on the left side. No new intracranial hemorrhage. Resolution of previous intraventricular hemorrhage. Removal of previous ventriculostomy. Kirk Cortes MD Objective Remarks GENERAL: 55-year-old male, conversant. Confused, but oriented to person. SKIN: Warm and dry. No rashes. HEAD: Dry posterior wound, clean, healing well.. New right ventriculostomy placed 06/12. EVD draining 70 ml clear CSF in 24 hours NECK: Supple. No obstruction. Airway widely patent. CARDIOVASCULAR: RRR. S1, S2. Without murmurs, or rubs. RESPIRATORY: Few mobile secretions, clear with cough. Air entry equal bilaterally GASTROINTESTINAL: Abdomen soft, non-tender, nondistended. Normal BS MUSCULOSKELETAL: Warm, well perfused. Neuro: Oriented to person. Pupils are equal bilaterally reactive. Moves all 4 extremities spontaneously. Conversant. follows commands. Urinary Catheter: Yes Assessment to: Continue A/P Problem List: (1) Hermila Ventriculitis Status: Acute (2) AVM (arteriovenous malformation) brain ICD Code: Q28.2 Status: Acute (3) Encephalopathy, traumatic ICD Code: F07.81 Status: Acute (4) UTI (urinary tract infection) ICD Code: N39.0 Status: Acute (5) Agitation ICD Code: R45.1 Status: Acute (6) Cerebellar hemorrhage ICD Code: I61.4 Status: Acute Assessment and Plan Neurologic/Psych: Intracranial hemorrhage Pial AVM Subarachnoid hemorrhage Mild Encephalopathy CSF leak?? Hermila Ventriculitis - status post AVM embolization followed by suboccipital craniotomy for hematoma evacuation and AVM resection at [facility]. Postoperatively, he was slow to wake up and a head CT showed herniation. - Neurosurgery following, Dr. Flowers. Status post right ventriculostomy 06/03, replaced 06/12 due to Hermila Ventriculitis. - Keppra 500 mg twice a day for seizure prophylaxis. EEG 06/03 read as normal. No seizure activity. - CT of head 06/02 revealed partial occipital craniotomy with coiling. - Interactive, alert oriented to person Respiratory: - NC to maintain saturations greater than equal to 92% - Incentive spirometry while awake - OOB daily with PT. Cardiovascular: Hypertension - Metoprol currently 12.5 milligrams by mouth twice a day. - continue Telemetry Renal: - Strict I/Os - Keep euvolemic - Keep well hydrated during Ampho B infusion. FEN/GI: Acute protein calorie malnutritionmild Hypernatremia Diarrhea- resolved intravascular volume depletion- resolving - Currently on Jevity 1.5 goal 50 cc an hour - Continue free water 200 cc every 6 - ICU electrolyte protocol - Pepcid for GI prophylaxis - Colace/MiraLAX for bowel regimen held with diarrhea, this is now resolved. if no BM x2 days restart MiraLAX. - C. difficile negative - Prealbumin -18, better than expected, continue TFs as ordered. Added Benepro bid. Heme Normocytic anemia - Does not meet transfusion triggers at this time. - Daily CBC ID Hermila Ventriculitis Enterococcus Bacteremia - CSF and blood positive Pertinent cultures 06/03 - CSF - no organisms, NGTD 06/06: Blood Enterococcus -> vancomycin 06/10 06/10: CSF -> Hermila 06/16: CSF surveilance cultures: Gram stain with budding yeast, though after discussion with Dr. Babin, this is only a few days after implementation of intraventric Ampho, so not unusual. We will plan to repeat surveilance CSF cultures in 7 days (06/25). 06/18: blood cultures: neg to date Continue AmphoB intra-ventric and IV Continue Vanc IV - stop date 06/24. 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 Will need long-term antifungal therapy. Continue hydration. OOB with excercise to prevent deconditioning. Level 3 Problem Qualifiers (1) UTI (urinary tract infection): (2) Cerebellar hemorrhage: Qualified Code: I61.4 - Nontraumatic intracerebral hemorrhage of cerebellum, unspecified laterality Bhupendra Torres MD Jun 21, 2016 07:27
[2016-06-21] MEDS: DOCUSATE SODIUM 100 MG CAP PO SCH ×2 (09:07→20:09)
[2016-06-21] MEDS: FAMOTIDINE 20 MG TAB NG SCH ×2 (09:07→20:09)
[2016-06-21] MEDS: SENNOSIDES 8.6 MG TAB PO SCH ×2 (09:07→20:10)
[2016-06-21] MEDS: QUEtiapine FUMARATE 25 MG TAB PO SCH ×2 (09:08→20:10)
[2016-06-21] MEDS: METOPROLOL TARTRATE 25 MG TAB PO SCH ×2 (09:08→20:09)
[2016-06-21] MEDS: levETIRAcetam 500 MG TAB PO SCH ×2 (09:08→20:09)
[2016-06-21] MEDS: HEPARIN SODIUM - SQ 10,000 UNITS/ML VIAL SQ SCH ×2 (09:08→20:10)
[2016-06-21] MEDS: SODIUM CHLORIDE 0.9% FLUSH 5 ML FLUSH IV FLUSH SCH ×2 (09:09→20:09)
[2016-06-21] MEDS: THIAMINE INJ 100 MG in SODIUM CHLORIDE 0.9% INJ 100 ML IV SCH (09:09)
--- NOTE | 2016-06-21 10:03 | EKG ---
Date Performed: 06/20/2016 Time Performed: 18:21:20 PTAGE: 55 years EKG: Sinus rhythm . Normal ECG NO PREVIOUS TRACING DOCTOR: Artis Allen Interpretating Date/Time 06/21/2016 09:58:45
[2016-06-21] MEDS: diphenhydrAMINE HCL 50 MG/ML VIAL IV PRN (11:32)
[2016-06-21] MEDS: MORPHINE SULFATE 4 MG/ML INJ IV PUSH PRN (11:33)
[2016-06-21] MEDS: ONDANSETRON HCL 4 MG/2 ML VIAL IV PRN (11:33)
[2016-06-21] MEDS: AMPHOTERICIN B 50 MG OTHER SCH (11:39)
--- NOTE | 2016-06-21 12:43 | HHI.NSPN ---
History Chief Complaint: No headache. Ventriculitis. Interval History 55-year-old male with Hermila ventriculitis. Status post suboccipital craniotomy for intracranial hemorrhage. AVM treated at [facility]. Subsequent CSF leak Exam Results Vital Signs Date Time Temp Pulse Resp B/P Pulse Ox O2 Delivery O2 Flow Rate FiO2 06/21/16 12:00 98.5 72 14 100/60 100 06/20/16 19:00 Room Air 06/19/16 07:15 21 Intake and Output 06/20/16 06/20/16 06/21/16 08:00 16:00 00:00 Intake Total 484 ml 740 ml 702 ml Output Total 795 ml 367 ml 253 ml Balance -311 ml 373 ml 449 ml Physical Examination He is moderately lethargic, confused. follows few simple commands. No apparent distress. surgical wound dry Ventriculostomy incision dry CN: pupils 3 mm equal, gross EOMs intact. facial appears symmetric at rest, tongue midline Motor: Moves left greater than right upper and lower extremity spontaneous and intermittent to command Lab, Micro, Other Results Laboratory Tests Test 06/21/16 03:35 White Blood Count 8.9 TH/MM3 Red Blood Count 3.54 MIL/MM3 Hemoglobin 10.8 GM/DL Hematocrit 32.2 % Mean Corpuscular Volume 90.8 FL Mean Corpuscular Hemoglobin 30.3 PG Mean Corpuscular Hemoglobin 33.4 % Concent Red Cell Distribution Width 14.2 % Platelet Count 447 TH/MM3 Mean Platelet Volume 8.7 FL Sodium Level 142 MEQ/L Potassium Level 4.0 MEQ/L Chloride Level 105 MEQ/L Carbon Dioxide Level 28.3 MEQ/L Anion Gap 9 MEQ/L Blood Urea Nitrogen 22 MG/DL Creatinine 0.91 MG/DL Estimat Glomerular Filtration 87 ML/MIN Rate Random Glucose 86 MG/DL Calcium Level 8.9 MG/DL Medical Decision Making Impression and Plan Impression: 1. Hermila ventriculitis following wound CSF leak from suboccipital craniotomy for treatment AVM Plan: Amphotericin B administered intraventricular today per the undersigned using sterile technique. Neurologic exam stable. Continue present treatment for ventriculitis Iker Escobedo MD Jun 21, 2016 12:43
[2016-06-21] MEDS: ACETAMIN 325 MG/BUTALBITAL 50 MG/CAFFEINE 40 MG TAB PO PRN (13:23)
[2016-06-21] MEDS: DEXTROSE 5% IV SCH ×2 (14:21)
[2016-06-21] MEDS: WATER IV SCH ×2 (14:21)
[2016-06-21] MEDS: AMPHOTERICIN B LIPOSOME IV SCH ×2 (14:21)
[2016-06-22] VITALS (12 sets, daily range): BP systolic 118–148; BP diastolic 70–82; PULSE 74–90; RESP 17–22; TEMP 98.1–99.3; O2SAT 100
[2016-06-22] MEDS: CHLORHEXIDINE GLUCONATE 2 % 1 PACK (2 CLOTHS) TOP SCH (02:43)
[2016-06-22 04:50] LABS: HEMATOCRIT 30.5 % (39.0-51.0); MEAN CORPUSCULAR HEMOGLOBIN 30.4 PG (27.0-34.0); MEAN CORPUSCULAR HGB CONC 34.2 % (32.0-36.0); PLATELET COUNT 463 TH/MM3 (150-450); RED BLOOD COUNT 3.43 MIL/MM3 (4.50-5.90); RED CELL DISTRIBUTION WIDTH 13.9 % (11.6-17.2); WHITE BLOOD COUNT 9.6 TH/MM3 (4.0-11.0)
[2016-06-22 05:13] LABS: BICARBONATE 30.1 MEQ/L (21.0-32.0); POTASSIUM 3.6 MEQ/L (3.5-5.1)
[2016-06-22] MEDS: FREE WATER G-TUBE SCH ×5 (06:00→23:24)
[2016-06-22] MEDS: diphenhydrAMINE HCL 50 MG/ML VIAL IV PRN (07:28)
[2016-06-22] MEDS: HYDROCORTISONE SOD SUCCINATE 100 MG VIAL IV PRN (07:28)
[2016-06-22] MEDS: AMPHOTERICIN B 50 MG OTHER SCH (07:56)
[2016-06-22] MEDS: HEPARIN SODIUM - SQ 10,000 UNITS/ML VIAL SQ SCH ×2 (08:35→23:24)
[2016-06-22] MEDS: SODIUM CHLORIDE 0.9% FLUSH 5 ML FLUSH IV FLUSH SCH ×2 (08:35→23:24)
[2016-06-22] MEDS: FAMOTIDINE 20 MG TAB NG SCH ×2 (08:35→23:23)
[2016-06-22] MEDS: SENNOSIDES 8.6 MG TAB PO SCH ×2 (08:35→23:23)
[2016-06-22] MEDS: levETIRAcetam 500 MG TAB PO SCH ×2 (08:35→23:24)
[2016-06-22] MEDS: POLYETHYLENE GLYCOL 17 GM PKG PO SCH (08:36)
[2016-06-22] MEDS: METOPROLOL TARTRATE 25 MG TAB PO SCH ×2 (08:36→23:23)
[2016-06-22] MEDS: QUEtiapine FUMARATE 25 MG TAB PO SCH ×2 (08:36→23:25)
[2016-06-22] MEDS: THIAMINE INJ 100 MG in SODIUM CHLORIDE 0.9% INJ 100 ML IV SCH (08:55)
[2016-06-22] MEDS: DOCUSATE SODIUM 100 MG CAP PO SCH ×2 (09:00→23:23)
[2016-06-22] MEDS: ACETAMINOPHEN 325 MG TAB PO PRN (09:11)
[2016-06-22 13:12] LABS: EOSINOPHILS 3 % (0-4); PLATELET ESTIMATE SMEAR HIGH (NORMAL); PLATELET MORPHOLOGY NORMAL (NORMAL); POLYS (SEG NEUTROPHILS) 83 % (16-70); SCAN/DIFF FINAL DIFF MANUAL; TOXIC GRANULATION 1+ (NORMAL); WBC DIFF SAMPLE 100
--- NOTE | 2016-06-22 13:42 | HHI.CCPN ---
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 The patient underwent placement of right frontal external ventricular drain for acute hydrocephalus and was transferred to [facility] for further treatment of the AVM by embolization followed by suboccipital craniotomy for hematoma evacuation and AVM resection. Postoperatively, he was slow to wake up, his EVD was Clamped and removed and his mental status was improving. Other complications include the UTI and agitation. He was started on Rocephin and Seroquel. The patient is being transferred back to [facility] due to confusion and questionable CSF leak. 06/03: Noted AVM embolization followed by suboccipital craniotomy for hematoma evacuation and AVM resection. Postoperatively, he was slow to wake up and a head CT showed herniation.. Noted CT last night revealed status post partial occipital craniotomy changes with Coils. Currently afebrile. Arousable and will follow commands but won't open eyes. Noted to have leaking from the occipital region plan to go back to or for suturing with neurosurgery. 06/04: Tmax 99. 3 problems overnight. Received 1 dose of Cafergot overnight for headache. Noted placement of a right ventriculostomy secondary to CSF leak yesterday. Patient is arousable. Tolerating tube feeding currently. 06/05: Afebrile. Mentation somewhat improved. Positive BM 4. Tolerating tube feeding. Will follow commands. Answers questions appropriately. 06/06: Afebrile. Sitting up in chair yesterday no acute distress. Positive BM 8 yesterday. Tolerating tube feeding. Follows commands. Still confused but answers questions appropriately. 06/07: Tmax 99. Currently on 2 L nasal cannula. Awake and alert to person only. No more CSF leak overnight. One to 2 word answers per his norm. 8 bowel movements negative C. difficile. 06/08: Tmax 99. Currently on room air. Awake and alert to person. No CSF leak. For bowel movements overnight. Noted that ventricular drain currently at 0 cm H2O 06/09: Tmax 102.2. WBC 12,000. Tolerating TFs. 06/10: Tmax 99.7. WBC declining. CT Head no change, some resolution of air in posterior fossa. TFs continue. 3/4 bottles blood positive for GPC. 06/11: Budding yeast, pseudohyphae in CSF. Enterococcus in blood. Mentation unchanged. ID consulted. 06/12: Started on Liposomal Ampho B, premedicated for mild reaction. Mentation unchanged. 06/13: Tolerating Amph B, headache only complaint. 06/14: Tolerating anti-fungal agent infused through ventric. ID guiding therapy. 06/15: A little dry - hydrate with NS bolus. Continue TFs. 06/16: continues to clinically appear slightly volume deplete. increasing free water to 200 q6h per tube. otherwise no significant change. continues to have agitated delirium, but neuro status is so labile, we are holding pharmacologic therapies. 06/17: csf cultured yesterday. continues to do well, except for delirium, which is stable. still only oriented to person. 06/18: csf gram stain with rare budding yeast. delirium stable. 06/19: spiked fever yesterday. wbc slightly uptrended today. repeat blood cultures sent yesterday. Per ID, fever likely 2/2 vanc. otherwise, stable neuro exam. 06/20: repeat bcx NGTD. stable neuro exam. 06/21: No acute issues overnight, no fever. EVD has drained 70 mL clear fluid in 24 hours. Patient remains oriented to person 06/22: No acute event. Per Dr. Babin, hermila in csf not susceptible to Ampho B. continue current regimen for now due to clinical improvement Objective Vital Signs Date Time Temp Pulse Resp B/P Pulse Ox O2 Delivery O2 Flow Rate FiO2 06/22/16 12:00 98.5 74 22 118/70 100 06/20/16 19:00 Room Air 06/19/16 07:15 21 Intake and Output 06/21/16 06/21/16 06/21/16 07:59 15:59 23:59 Intake Total 612 ml 703 ml 522 ml Output Total 374 ml 530 ml 785 ml Balance 238 ml 173 ml -263 ml Result Diagram: 06/22/16 0347 06/22/16 0347 Imaging Last Impressions Head CT 06/02/16 0000 Signed Impressions: Service Date/Time: Thursday, June 02, 2016 20:00 - CONCLUSION: Postoperative partial occipital craniectomy for treatment of arteriovenous malformation with vascular coils present in the operative bed. There is encephalomalacia in the posterior fossa involving the posterior cerebellum more so on the left side. No new intracranial hemorrhage. Resolution of previous intraventricular hemorrhage. Removal of previous ventriculostomy. Kirk Cortes MD Objective Remarks GENERAL: 55-year-old male, conversant. Confused, oriented only to person. SKIN: Warm and dry. No rashes. HEAD: Dry posterior wound, clean, healing well. New right ventriculostomy placed 06/12. EVD draining 70 ml clear CSF in 24 hours NECK: Supple. No obstruction. Airway widely patent. CARDIOVASCULAR: RRR. S1, S2. Without murmurs, or rubs. RESPIRATORY: Few mobile secretions, clear with cough. Air entry equal bilaterally GASTROINTESTINAL: Abdomen soft, non-tender, nondistended. Normal BS MUSCULOSKELETAL: Warm, well perfused. Neuro: Oriented to person. Pupils are equal bilaterally reactive. Moves all 4 extremities spontaneously. Conversant. follows commands. Urinary Catheter: Yes Assessment to: Continue A/P Problem List: (1) Hermila Ventriculitis Status: Acute (2) AVM (arteriovenous malformation) brain ICD Code: Q28.2 Status: Acute (3) Encephalopathy, traumatic ICD Code: F07.81 Status: Acute (4) UTI (urinary tract infection) ICD Code: N39.0 Status: Acute (5) Agitation ICD Code: R45.1 Status: Acute (6) Cerebellar hemorrhage ICD Code: I61.4 Status: Acute Assessment and Plan Neurologic/Psych: Intracranial hemorrhage Pial AVM Subarachnoid hemorrhage Mild Encephalopathy CSF leak?? Hermila Ventriculitis - status post AVM embolization followed by suboccipital craniotomy for hematoma evacuation and AVM resection at [facility]. Postoperatively, he was slow to wake up and a head CT showed herniation. - Neurosurgery following, Dr. Flowers. Status post right ventriculostomy 06/03, replaced 06/12 due to Hermila Ventriculitis. - Keppra 500 mg twice a day for seizure prophylaxis. EEG 06/03 read as normal. No seizure activity. - CT of head 06/02 revealed partial occipital craniotomy with coiling. - Interactive, alert oriented to person Respiratory: - NC to maintain saturations greater than equal to 92% - Incentive spirometry while awake. OOB daily with PT. Cardiovascular: Hypertension - Metoprol currently 12.5 milligrams by mouth twice a day. - continue Telemetry Renal: - Strict I/Os - Keep euvolemic - Keep well hydrated during Ampho B infusion. FEN/GI: Acute protein calorie malnutritionmild Hypernatremia Diarrhea- resolved intravascular volume depletion- resolving - Currently on Jevity 1.5 goal 50 cc an hour - Continue free water 200 cc every 6 - ICU electrolyte protocol - Pepcid for GI prophylaxis - Colace/MiraLAX for bowel regimen held with diarrhea, this is now resolved. if no BM x2 days restart MiraLAX. - C. difficile negative. Prealbumin -18, better than expected, continue TFs as ordered. Added Benepro bid. Heme Normocytic anemia - Does not meet transfusion triggers at this time. - Daily CBC ID Hermila Ventriculitis Enterococcus Bacteremia - CSF and blood Hermila albicans NS to Ampho B - (Per Dr. Babin, hermila in csf not susceptible to Ampho B. continue current regimen for now due to clinical improvement-defer changes to ID) Pertinent cultures 06/03 - CSF - no organisms, NGTD 06/06: Blood Enterococcus -> vancomycin 06/10 06/10: CSF -> Hermila 06/16: CSF surveillance cultures: Gram stain with budding yeast, though after discussion with Dr. Babin, this is only a few days after implementation of intraventric Ampho, so not unusual. We will plan to repeat surveilance CSF cultures in 7 days (06/25). 06/18: blood cultures: neg to date Continue AmphoB intra-ventric and IV-defer any changes to ID Continue Vanc IV - stop date 06/24. 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 Invasive. Will need long-term antifungal therapy. Continue hydration. OOB with excercise to prevent deconditioning, as tolerated. Level 3 Problem Qualifiers (1) UTI (urinary tract infection): (2) Cerebellar hemorrhage: Qualified Code: I61.4 - Nontraumatic intracerebral hemorrhage of cerebellum, unspecified laterality Bhupendra Torres MD Jun 22, 2016 13:42
--- NOTE | 2016-06-22 13:51 | RADRPT ---
EXAM DATE/TIME: 06/22/2016 12:54 This report includes an Addendum and supersedes previous reports for this exam. [facility] COMPARISON: CHEST SINGLE AP, May 05, 2016, 4:27. INDICATIONS : Post PICC line placement. MEDICAL HISTORY : None. SURGICAL HISTORY : None. ENCOUNTER: Initial ACUITY: 1 day PAIN SCORE: 0/10 LOCATION: Bilateral chest FINDINGS: Single AP view of the chest. The lungs are clear. Cardiomediastinal silhouette within normal limits. No evidence of pleural effusion or pneumothorax. CONCLUSION: No acute cardiopulmonary disease identified. Tommy Ramirez MD on June 22, 2016 at 13:49 Board Certified Radiologist. This report was verified electronically. ADDENDUM: There is a right arm PICC appropriately positioned, tip at the atriocaval junction. Brian Hu MD on June 23, 2016 at 6:39 Board Certified Radiologist. This report was verified electronically.
--- NOTE | 2016-06-22 13:54 | HHI.IDPN ---
Subjective Subjective Remarks is a 55 y/o CM with AVM s/p coiling. ID following for Keira ventriculitis and E.faecalis bacteremia. Overnight events reviewed. No rash No diarrhea Awake, mumbles. Wants to be left alone. No seizures. tolerating Ampho IV and intraventricular doses well. Occ headaches post Intraventric infusions controlled by Tylenol. Antibiotics Ampho Intra Venous Ampho Intra Ventricular. Lines Line sites with no e/o infection Past Medical History AVM s/p coil Allergies: Coded Allergies: Oxycodone (Unverified Allergy, Intermediate, ITCHY, 01/16/16) Objective . Vital Signs Date Time Temp Pulse Resp B/P Pulse Ox O2 Delivery O2 Flow Rate FiO2 06/22/16 12:00 98.5 74 22 118/70 100 06/22/16 12:00 74 06/22/16 10:11 14 06/22/16 10:00 77 06/22/16 08:00 98.8 90 19 131/81 100 06/22/16 08:00 79 06/22/16 06:00 86 06/22/16 04:00 83 06/22/16 04:00 99.1 83 17 146/82 100 06/22/16 02:00 75 06/22/16 00:00 80 06/22/16 00:00 99.3 80 17 124/80 100 06/21/16 22:00 74 06/21/16 20:00 98.8 91 12 151/79 100 06/21/16 20:00 91 06/21/16 18:00 93 06/21/16 16:00 98.7 83 13 127/82 100 06/21/16 16:00 83 06/21/16 14:00 8 06/21/16 06/21/16 06/22/16 14:59 22:59 06:59 Intake Total 703 ml 522 ml 720 ml Output Total 530 ml 785 ml 655 ml Balance 173 ml -263 ml 65 ml IV Total 100 ml Tube Feeding 403 ml 422 ml 320 ml Other 200 ml 100 ml 400 ml Output Urine Total 500 ml 775 ml 625 ml Drainage Total 30 ml 10 ml 30 ml # Voids 1 # Bowel Movements 0 0 0 . Laboratory Tests Test 06/21/16 06/22/16 03:35 03:47 White Blood Count 8.9 TH/MM3 9.6 TH/MM3 Red Blood Count 3.54 MIL/MM3 3.43 MIL/MM3 Hemoglobin 10.8 GM/DL 10.4 GM/DL Hematocrit 32.2 % 30.5 % Mean Corpuscular Volume 90.8 FL 89.0 FL Mean Corpuscular Hemoglobin 30.3 PG 30.4 PG Mean Corpuscular Hemoglobin 33.4 % 34.2 % Concent Red Cell Distribution Width 14.2 % 13.9 % Platelet Count 447 TH/MM3 463 TH/MM3 Mean Platelet Volume 8.7 FL 8.2 FL Differential Total Cells 100 Counted Neutrophils % (Manual) 83 % Lymphocytes % 8 % Monocytes % 6 % Eosinophils % 3 % Neutrophils # (Manual) 8.0 TH/MM3 Differential Comment FINAL DIFF MANUAL Toxic Granulation 1+ Platelet Estimate HIGH Platelet Morphology Comment NORMAL Laboratory Tests Test 06/21/16 06/22/16 03:35 03:47 Sodium Level 142 MEQ/L 142 MEQ/L Potassium Level 4.0 MEQ/L 3.6 MEQ/L Chloride Level 105 MEQ/L 101 MEQ/L Carbon Dioxide Level 28.3 MEQ/L 30.1 MEQ/L Anion Gap 9 MEQ/L 11 MEQ/L Blood Urea Nitrogen 22 MG/DL 23 MG/DL Creatinine 0.91 MG/DL 1.03 MG/DL Estimat Glomerular Filtration 87 ML/MIN 75 ML/MIN Rate Random Glucose 86 MG/DL 112 MG/DL Calcium Level 8.9 MG/DL 9.2 MG/DL Imaging Last Impressions Head CT 06/10/16 0600 Signed Impressions: Service Date/Time: Friday, June 10, 2016 05:01 - CONCLUSION: 1. 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 Locules of air within the fluid are decreasing since June 08. Right frontal ventriculostomy tube remains present with stable ventricular size. No hydrocephalus. Kirk Cortes MD Physical Exam GENERAL: Thin built, well-developed patient, in no apparent distress. SKIN: No rashes. Cool and dry. HEAD: Surgical site with no e/o infection. Ventric site with no gross e/o infection. EYES: Pupils equal round and reactive. Extraocular motions intact. ENT: Nose without bleeding, purulent drainage or septal hematoma. Throat without erythema, tonsillar hypertrophy or exudate. Uvula midline. Airway patent. NECK: Trachea midline.Supple, nontender, neck not very supple. Some stiffness towards end on flexion. ? patient reliability. CARDIOVASCULAR: Regular rate and rhythm. No murmur appreciated. RESPIRATORY: Clear to auscultation. Breath sounds equal bilaterally. No wheezes , rales, or rhonchi. GASTROINTESTINAL: Abdomen soft, non-tender, nondistended. MUSCULOSKELETAL: Extremities without clubbing, cyanosis, or edema. No joint tenderness, effusion, or edema noted. NEUROLOGICAL: Awake and alert. Responds to questions not appropriate all the times. Moves all 4 extremities. Psych: cooperative IV line sites with no e/o infection. Assessment & Plan Remarks Keira albicans ventriculitis. MRI cannot be performed due to coils. CSF fluid was very cloudy and had fungal sediments. Patient candidate for WET ROASTER shunt in near future. E.faecalis bacteremia: No central lines or PIVs. Treated. Repeat BCX negative. SIRS/Sepsis now controlled since Vanco IV started. AVM was transferred to [facility] for further treatment of the AVM by embolization followed by suboccipital craniotomy for hematoma evacuation and AVM resection. CSF leak and hydrocephalus s/p Rt sima hole and Ventriculostomy catheter placement 06/03/2016. s/p PICC placement. Recs: Discontinue Intra Venous amphotericin Liposomal. Start Diflucan 800 mg IV every 24 hours. Continue Intraventricular Amphotericin instillation. Follow cultures Follow clinically Keira albicans sent to [facility] for susceptibility. Continue Benadryl IV and Hydrocortisone IV as premedication for Amphotericin IV as well as if need prior to Intra ventricular dose. Will repeat CSF on Thursday06/23/16, will d.w [facility] for Neurosurgery. D/w : keira albicans resistance issue. Will DC IV ampho but will continue Intraventricular Ampho as CSF fungal stain showed improvement with rare yeast on the repeat CSF. Will follow repeat CSF from 06/23/16. Would not recommend permanent WET ROASTER shunt placement at present time given difficult to treat organism and CSF findings. Literature reviewed: No reported [employer] cases of Ampho IV, 5FC resistant cases as combo. Also no reported [employer] cases of Posaconazole. Will continue literature search to look for better alternatives but for now Diflucan high dose seems to be a reasonable transition. Time spent in excess of 40 mins, critical thinking, literature review etc. Jenifer Babin MD Jun 22, 2016 13:54
[2016-06-22] MEDS: FLUCONAZOLE 400 MG PREMIX BAG 400 ML IV SCH (13:58)
--- NOTE | 2016-06-22 14:06 | HHI.NSPN ---
History Chief Complaint: No headache. Ventriculitis. Interval History 55-year-old male with Hemrila ventriculitis. Status post suboccipital craniotomy for intracranial hemorrhage. AVM treated at [facility]. Subsequent CSF leak Exam Results Vital Signs Date Time Temp Pulse Resp B/P Pulse Ox O2 Delivery O2 Flow Rate FiO2 06/22/16 12:00 98.5 74 22 118/70 100 06/20/16 19:00 Room Air 06/19/16 07:15 21 Intake and Output 06/21/16 06/21/16 06/22/16 08:00 16:00 00:00 Intake Total 612 ml 703 ml 522 ml Output Total 374 ml 530 ml 785 ml Balance 238 ml 173 ml -263 ml Physical Examination Awake and relatively alert this morning. follows few simple commands. No apparent distress. Answers simple questions appropriately. surgical wound dry Ventriculostomy incision dry CN: pupils 3 mm equal, gross EOMs intact. facial appears symmetric at rest, tongue midline Motor: Moves left greater than right upper and lower extremity spontaneous and intermittent to command Lab, Micro, Other Results Laboratory Tests Test 06/22/16 03:47 White Blood Count 9.6 TH/MM3 Red Blood Count 3.43 MIL/MM3 Hemoglobin 10.4 GM/DL Hematocrit 30.5 % Mean Corpuscular Volume 89.0 FL Mean Corpuscular Hemoglobin 30.4 PG Mean Corpuscular Hemoglobin 34.2 % Concent Red Cell Distribution Width 13.9 % Platelet Count 463 TH/MM3 Mean Platelet Volume 8.2 FL Differential Total Cells 100 Counted Neutrophils % (Manual) 83 % Lymphocytes % 8 % Monocytes % 6 % Eosinophils % 3 % Neutrophils # (Manual) 8.0 TH/MM3 Differential Comment FINAL DIFF MANUAL Toxic Granulation 1+ Platelet Estimate HIGH Platelet Morphology Comment NORMAL Sodium Level 142 MEQ/L Potassium Level 3.6 MEQ/L Chloride Level 101 MEQ/L Carbon Dioxide Level 30.1 MEQ/L Anion Gap 11 MEQ/L Blood Urea Nitrogen 23 MG/DL Creatinine 1.03 MG/DL Estimat Glomerular Filtration 75 ML/MIN Rate Random Glucose 112 MG/DL Calcium Level 9.2 MG/DL Medical Decision Making Impression and Plan Impression: 1. Hermila ventriculitis following wound CSF leak from suboccipital craniotomy for treatment AVM Plan: Amphotericin B administered intraventricular today per the undersigned using sterile technique. Neurologic exam stable. Continue present treatment for ventriculitis Iker Escobedo MD Jun 22, 2016 14:06
--- NOTE | 2016-06-22 22:18 | HHI.PR ---
Addendum to Inpatient Note Addendum Reason: Additional Documentation Additional Information Please notify Neurosurgery PA Anusha Hastings to draw CSF from Ventric as follows. Ok to call me if any questions. I already entered orders she needs to collect CSF sample. 1. CSF gram stain and culture 2. CSF fungal stain and culture 3. CSF cell count with diff, glucose, total protein. Jenifer Babin MD Jun 22, 2016 22:18
[2016-06-23] VITALS (12 sets, daily range): BP systolic 134–141; BP diastolic 73–89; PULSE 64–90; RESP 12–18; TEMP 97.8–99.5; O2SAT 99–100
[2016-06-23] MEDS: CHLORHEXIDINE GLUCONATE 2 % 1 PACK (2 CLOTHS) TOP SCH (04:52)
[2016-06-23 04:59] LABS: HEMATOCRIT 29.9 % (39.0-51.0); MEAN CELL VOLUME 89.1 FL (80.0-100.0); MEAN CORPUSCULAR HEMOGLOBIN 30.4 PG (27.0-34.0); MEAN CORPUSCULAR HGB CONC 34.1 % (32.0-36.0); PLATELET COUNT 419 TH/MM3 (150-450); RED BLOOD COUNT 3.36 MIL/MM3 (4.50-5.90); RED CELL DISTRIBUTION WIDTH 13.8 % (11.6-17.2); REVIEW FLAG FINAL
[2016-06-23 05:13] LABS: BICARBONATE 32.6 MEQ/L (21.0-32.0); POTASSIUM 3.2 MEQ/L (3.5-5.1)
[2016-06-23] MEDS: FREE WATER G-TUBE SCH ×3 (06:00→17:56)
[2016-06-23] MEDS: POTASSIUM CHLOR 40 MEQ PREMIX 100 ML IV PRN ×2 (06:38→09:43)
--- NOTE | 2016-06-23 08:17 | HHI.CCPN ---
Subjective Remarks/Hospital Course 55-year-old male initially admitted to [facility] on 05/03/2016 after he was found down, intubated in the field and was found to have an intracranial hemorrhage from a ruptured AVM. The patient underwent placement of right frontal external ventricular drain for acute hydrocephalus and was transferred to [facility] for further treatment of the AVM by embolization followed by suboccipital craniotomy for hematoma evacuation and AVM resection. Postoperatively, he was slow to wake up, his EVD was Clamped and removed and his mental status was improving. Other complications include the UTI and agitation. He was started on Rocephin and Seroquel. The patient is being transferred back to [facility] due to confusion and CSF leak. EVD was placed. He was found to have budding yeast, pseudohyphae in CSF and Enterococcus in blood. Objective Vital Signs Date Time Temp Pulse Resp B/P Pulse Ox O2 Delivery O2 Flow Rate FiO2 06/23/16 06:00 73 06/23/16 04:00 98.0 13 140/73 100 06/20/16 19:00 Room Air 06/19/16 07:15 21 Intake and Output 06/22/16 06/22/16 06/22/16 07:59 15:59 23:59 Intake Total 720 ml 745 ml 646 ml Output Total 655 ml 295 ml 695 ml Balance 65 ml 450 ml -49 ml Result Diagram: 06/23/16 0435 06/23/16 0435 Objective Remarks GENERAL: 55-year-old male, conversant. Confused, oriented only to person. SKIN: Warm and dry. No rashes. HEAD: Dry posterior wound, clean, healing well. New right ventriculostomy placed 06/12. EVD draining 70 ml clear CSF in 24 hours NECK: Supple. No obstruction. Airway widely patent. CARDIOVASCULAR: RRR. S1, S2. Without murmurs, or rubs. RESPIRATORY: Few mobile secretions, clear with cough. Air entry equal bilaterally GASTROINTESTINAL: Abdomen soft, non-tender, nondistended. Normal BS MUSCULOSKELETAL: Warm, well perfused. Neuro: Oriented to person. Pupils are equal bilaterally reactive. Moves all 4 extremities spontaneously. Conversant. follows commands. 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 - status post AVM embolization followed by suboccipital craniotomy for hematoma evacuation and AVM resection at [facility] - management per NSGY - Neurochecks per ICU routine - Keppra 500 mg twice a day for seizure prophylaxis CSF leak - EVD in place - wean per surgeon recommendations Hermila Ventriculitis - Ampho B - systemic and intraventricular - right ventriculostomy 06/03, replaced 06/12 - hermila in csf not susceptible to Ampho B; however will continue current regimen for now due to clinical improvement - ID input appreciated Enterococcus Bacteremia - Continue Vanc IV - stop date 06/24 Hypertension - Metoprol 12.5 milligrams Q12 hours - continue Telemetry Acute protein calorie malnutritionmild - Continue Jevity 1.5 goal 50 cc an hour Hypernatremia - Continue free water 200 cc every 6 - ICU electrolyte protocol Normocytic anemia - Does not meet transfusion triggers at this time. - Daily CBC Prophylaxis: GI Prophylaxis Pepcid 20 mg twice a day: DVT Prophylaxis - SCDs - Heparin subQ Level 3 Problem Qualifiers (1) UTI (urinary tract infection): (2) Cerebellar hemorrhage: Qualified Code: I61.4 - Nontraumatic intracerebral hemorrhage of cerebellum, unspecified laterality Chidi Trimble MD Jun 23, 2016 08:17 RESPIRATORY: Few mobile secretions, clear with cough. Air entry equal bilaterally GASTROINTESTINAL: Abdomen soft, non-tender, nondistended. Normal BS MUSCULOSKELETAL: Warm, well perfused. Neuro: Oriented to person. Pupils are equal bilaterally reactive. Moves all 4 extremities spontaneously. Conversant. follows commands. A/P Problem List: (1) Hermila Ventriculitis Status: Acute (2) AVM (arteriovenous malformation) brain ICD Code: Q28.2 Status: Acute (3) Encephalopathy, traumatic ICD Code: F07.81 Status: Acute (4) UTI (urinary tract infection) ICD Code: N39.0 Status: Acute (5) Agitation ICD Code: R45.1 Status: Acute (6) Cerebellar hemorrhage ICD Code: I61.4 Status: Acute Assessment and Plan Neurologic/Psych: Intracranial hemorrhage Pial AVM Subarachnoid hemorrhage Mild Encephalopathy CSF leak?? Hermila Ventriculitis - status post AVM embolization followed by suboccipital craniotomy for hematoma evacuation and AVM resection at [facility]. Postoperatively, he was slow to wake up and a head CT showed herniation. - Neurosurgery following, Dr. Flowers. Status post right ventriculostomy 06/03, replaced 06/12 due to Hermila Ventriculitis. - Keppra 500 mg twice a day for seizure prophylaxis. EEG 06/03 read as normal. No seizure activity. - CT of head 06/02 revealed partial occipital craniotomy with coiling. - Interactive, alert oriented to person Respiratory: - NC to maintain saturations greater than equal to 92% - Incentive spirometry while awake. OOB daily with PT. Cardiovascular: Hypertension - Metoprol currently 12.5 milligrams by mouth twice a day. - continue Telemetry Renal: - Strict I/Os - Keep euvolemic - Keep well hydrated during Ampho B infusion. FEN/GI: Acute protein calorie malnutritionmild Hypernatremia Diarrhea- resolved intravascular volume depletion- resolving - Currently on Jevity 1.5 goal 50 cc an hour - Continue free water 200 cc every 6 - ICU electrolyte protocol - Pepcid for GI prophylaxis - Colace/MiraLAX for bowel regimen held with diarrhea, this is now resolved. if no BM x2 days restart MiraLAX. - C. difficile negative. Prealbumin -18, better than expected, continue TFs as ordered. Added Benepro bid. Heme Normocytic anemia - Does not meet transfusion triggers at this time. - Daily CBC ID Hermila Ventriculitis Enterococcus Bacteremia - CSF and blood Hermila albicans NS to Ampho B - (Per Dr. Babin, hermila in csf not susceptible to Ampho B. continue current regimen for now due to clinical improvement-defer changes to ID) Pertinent cultures 06/03 - CSF - no organisms, NGTD 06/06: Blood Enterococcus -> vancomycin 06/10 06/10: CSF -> Hermila 06/16: CSF surveillance cultures: Gram stain with budding yeast, though after discussion with Dr. Babin, this is only a few days after implementation of intraventric Ampho, so not unusual. We will plan to repeat surveilance CSF cultures in 7 days (06/25). 06/18: blood cultures: neg to date Continue AmphoB intra-ventric and IV-defer any changes to ID Continue Vanc IV - stop date 06/24. 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 Invasive. Will need long-term antifungal therapy. Continue hydration. OOB with excercise to prevent deconditioning, as tolerated. Level 3 Problem Qualifiers (1) UTI (urinary tract infection): (2) Cerebellar hemorrhage: Qualified Code: I61.4 - Nontraumatic intracerebral hemorrhage of cerebellum, unspecified laterality Chidi Trimble MD Jun 23, 2016 08:17
--- NOTE | 2016-06-23 08:50 | HHI.NSPN ---
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 The patient underwent placement of right frontal external ventricular drain for acute hydrocephalus and was transferred to [facility] for further treatment of the AVM by embolization followed by suboccipital craniotomy for hematoma evacuation, and AVM resection at [facility] . Postoperatively, he was slow to wake up, his EVD was Clamped and removed at [facility] and his mental status was improving. He had UTI and agitation. He was started on Rocephin and Seroquel. The patient was being transferred back to [facility] due to confusion and CSF leak. 06/04: s/p placement of ventriculostomy drain. no further leaking noted from posterior fossa wound, there has been scab formation also. 06/05: no wound leak seen 06/06: appears more awake today, wound dry, no evidence of CSF leaking overnight 06/09: wound dry, sitting up in chair eating breakfast 06/10: follow up CT Brain reviewed 06/11: prelim CSF testing shows elevated WBCs, proteins with low glucose, 06/12: CSF showing fungal growth, intraventricular ampho b ordered 06/13: EVD draining, no significant changes to neuro checks overnight 06/16: neuro checks stable overnight, alert, pleasantly confused today 06/17: intermittently confused, working with PT, repeat CSF cx pending 06/18: intermittent complaints of headaches yesterday, currently denies HAs, moves all four extremities, reported no allergic type rx following administration of intraventric ampho 06/19: reported SCHULTZ following ampho b adminstration that resolves, no changed in mental status or neuro checks 06/20: pleasantly confused, neuro checks stable overnight. 06/23: sitting up in chair, stably confused. (Anusha Hastings) Labs, Micro, & Vital Signs Results Date Time Temp Pulse Resp B/P Pulse Ox O2 Delivery O2 Flow Rate FiO2 06/23/16 06:00 73 06/23/16 04:00 71 06/23/16 04:00 98.0 71 13 140/73 100 06/23/16 02:00 64 06/23/16 00:00 97.8 70 12 134/74 100 06/23/16 00:00 83 06/22/16 22:00 78 06/22/16 20:00 84 06/22/16 20:00 98.4 84 22 136/71 100 06/22/16 18:00 86 06/22/16 16:00 98.1 76 18 148/82 100 06/22/16 16:00 86 06/22/16 14:00 76 06/22/16 12:00 98.5 74 22 118/70 100 06/22/16 12:00 74 06/22/16 10:11 14 06/22/16 10:00 77 06/23/16 06:59 Intake Total 1876 ml Output Total 1067 ml Balance 809 ml Constitutional Vital Signs Date Time Temp Pulse Resp B/P Pulse Ox O2 Delivery O2 Flow Rate FiO2 06/23/16 06:00 73 06/23/16 04:00 71 06/23/16 04:00 98.0 71 13 140/73 100 06/23/16 02:00 64 06/23/16 00:00 97.8 70 12 134/74 100 06/23/16 00:00 83 06/22/16 22:00 78 06/22/16 20:00 84 06/22/16 20:00 98.4 84 22 136/71 100 06/22/16 18:00 86 06/22/16 16:00 98.1 76 18 148/82 100 06/22/16 16:00 86 06/22/16 14:00 76 06/22/16 12:00 98.5 74 22 118/70 100 06/22/16 12:00 74 06/22/16 10:11 14 06/22/16 10:00 77 06/23/16 06:59 Intake Total 1876 ml Output Total 1067 ml Balance 809 ml (Anusha Hastings) Review of Systems/Exam Exam He is alert, oriented to name only, pleasantly confused. Sitting up in chair. follows few simple commands. surgical healing well, no evidence of drainage noted Ventriculostomy drain in place, open at 0 cm H20. CSF is cloudy and slightly xanthochromic. EVD site is clean without evidence of infection. CN: pupils 3 mm equal, gross EOMs intact. facial appears symmetric at rest, tongue midline Motor: moves grossly all four extremities symmetrically to command, on upper extremity restraints and hand mittens Cerebellar: cannot assess due to clinical condition (Anusha Hastings) Medications Current Medications Current Medications Medications (Trade) Dose Ordered Sig/Paula Route PRN Reason Start Time Stop Time Status Last Admin Dose Admin Naloxone HCl (Narcan Inj) 0.4 mg UNSCH PRN IV SEE LABEL COMMENTS 05/29/16 15:00 Acetaminophen/ Butalbital/ Caffeine (Fioricet 325-50-40) 1 tab Q6H PRN PO PAIN GREATER THAN 5 or headach 05/29/16 15:00 06/21/16 13:23 Heparin Sodium (Porcine) (Heparin Inj) 5,000 units Q12HR SQ 05/29/16 21:00 06/22/16 23:24 Levetriacetam (Keppra) 500 mg Q12HR PO 05/29/16 21:00 06/22/16 23:24 Morphine Sulfate (Morphine Inj) 2 mg Q3H PRN IV PUSH BREAKTHROUGH PAIN 06/02/16 10:30 06/21/16 11:33 Diphenhydramine HCl (Benadryl 2% Cream) 1 applic TID PRN TOPICAL ITCHING 06/02/16 11:15 IV Flush (NS Flush) 2 ml UNSCH PRN IV FLUSH FLUSH AFTER USING IV ACCESS 06/03/16 09:45 IV Flush (NS Flush) 2 ml BID IV FLUSH 06/03/16 21:00 06/22/16 23:24 Acetaminophen (Tylenol) 650 mg Q6H PRN PO FEVER >100F 06/03/16 09:45 06/22/16 09:11 Ondansetron HCl (Zofran Inj) 4 mg Q6H PRN IV NAUSEA OR VOMITING 06/03/16 09:45 06/21/16 11:33 Docusate Sodium (Colace) 100 mg BID PO 06/03/16 21:00 06/22/16 23:23 Sennosides (Senokot) 17.2 mg BID PO 06/03/16 09:45 06/22/16 23:23 Miscellaneous Information 1 Q361D XX 06/03/16 09:45 Chlorhexidine Gluconate (Chlorhexidine 2% Cloth) 3 pack Taper DAILY@04 TOP 06/04/16 04:00 05/31/17 03:59 06/23/16 04:52 Chlorhexidine Gluconate 3 pack 3 pack UNSCH PRN TOP HYGIENIC CARE 06/03/16 09:45 Thiamine HCl/ Sodium Chloride (Thiamine Inj/NS Inj) 101 ml @ 101 mls/hr DAILY IV 06/04/16 09:00 06/22/16 08:55 Polyethylene Glycol 17 gm 17 gm DAILY PO 06/04/16 09:00 06/22/16 08:36 Sodium Chloride (NS 1000 ml Inj) 1,000 ml @ 100 mls/hr Q10H IV 06/03/16 21:16 Hold 06/05/16 22:23 Famotidine (Pepcid) 20 mg BID NG 06/04/16 09:00 06/22/16 23:23 Metoprolol Tartrate (Lopressor) 12.5 mg Q12HR PO 06/05/16 21:00 06/22/16 23:23 Quetiapine Fumarate (SEROquel) 25 mg BID PO 06/06/16 09:00 06/22/16 23:25 Loperamide HCl (Imodium Liq) 2 mg UNSCH PRN TUBE DIARRHEA 06/06/16 16:15 06/07/16 21:24 Diphenhydramine HCl (Benadryl Inj) 25 mg Q24H PRN IV PRE-MED PRIOR TO AMPHOTERCIN B 06/11/16 17:00 06/22/16 07:28 Hydrocortisone Sodium Succinate 25 mg 25 mg Q24H PRN IV PRE-MED PRIOR TO AMPHOTERCIN B 06/11/16 17:00 06/22/16 07:28 Potassium Chloride 100 ml @ 50 mls/hr Q2H PRN IV For Potassium 2.8 - 3.2 mEq/L 06/12/16 07:15 06/23/16 06:38 Potassium Chloride (KCl 20 Meq Premix Inj) 100 ml @ 50 mls/hr Q2H PRN IV For Potassium 2.8 - 3.2 mEq/L 06/12/16 07:15 Potassium Chloride 40 meq 40 meq UNSCH PRN PO/TUBE For Potassium 3.3 - 3.5 mEq/L 06/12/16 07:15 06/20/16 07:58 Potassium Chloride 100 ml @ 25 mls/hr UNSCH PRN IV For Potassium 3.3 - 3.5 mEq/L 06/12/16 07:15 Potassium Chloride 100 ml @ 50 mls/hr Q2H PRN IV For Potassium 3.3 - 3.5 mEq/L 06/12/16 07:15 Magnesium Sulfate/ Sodium Chloride (Magnesium Sulfate Inj/NS Inj) 100 ml @ 50 mls/hr UNSCH PRN IV For Magnesium 0.9 - 1.1 mg/dL 06/12/16 07:15 Magnesium Oxide 800 mg 800 mg UNSCH PRN PO For Magnesium 1.2 - 1.6 mg/dL 06/12/16 07:15 Magnesium Sulfate/ Sodium Chloride (Magnesium Sulfate Inj/NS Inj) 100 ml @ 50 mls/hr UNSCH PRN IV For Magnesium 1.2 - 1.6 mg/dL 06/12/16 07:15 Potassium Phosphate 2000 mg 2,000 mg Q4H PRN PO For Phosphorus < 2.5 mg/dL 06/12/16 07:15 Sodium Phosphate/ Sodium Chloride (Sodium Phosphate Inj/NS 250 ml Inj) 250 ml @ 42 mls/hr UNSCH PRN IV For Phosphorus < 2.5 mg/dL 06/12/16 07:15 Potassium Chloride (KCl 40 Meq/30 ml Liq) 40 meq UNSCH PRN PO/TUBE SEE LABEL COMMENTS 06/12/16 07:15 Potassium Phosphate 2000 mg 2,000 mg UNSCH PRN PO/TUBE SEE LABEL COMMENTS 06/12/16 07:15 Potassium Phosphate/Sodium Chloride (Potassium Phosphate Inj/NS 250 ml Inj) 260 ml @ 42 mls/hr UNSCH PRN IV SEE LABEL COMMENTS 06/12/16 07:15 Amphotericin B (Amphotericin B Conv Inj) 1 mg Q24H OTHER 06/13/16 09:00 06/22/16 07:56 Water (Free Water) 200 ml Q6HR G-TUBE 06/16/16 12:00 06/23/16 06:00 IV Flush (NS Flush) See Protocol DAILY IVF 06/23/16 09:00 IV Flush (NS Flush) See Protocol UNSCH PRN IVF SEE PROTOCOL TABLE 06/22/16 12:30 IV Flush See Protocol UNSCH PRN IVF SEE PROTOCOL TABLE 06/22/16 12:30 Fluconazole/ Sodium Chloride (Diflucan 400 Mg Premix Bag) 400 ml @ 100 mls/hr Q24H IV 06/22/16 14:00 06/22/16 13:58 (Anusha Hastings) Medical Decision Making MDM Remarks 55 y/o male s/p posterior fossa craniectomy for evacuation of cerebellar bleed due to AVM with embolization at [facility] s/p ventriculostomy placement for CSF leak ventriculitis with growth of Hermila, replacement of ventriculostomy drain , started intraventricular Ampho B tx 06/12/16 (Anusha Hastings) Plan Plan Remarks cont daily intraventricular administration ampho b per ID cont EVD draining at 0 cm H20 cont daily therapy repeat CSF cultures sent per ID's request Dose 12 Intraventricular Ampho B given today (Anusha Hastings) Attending Statement The exam, history, and the medical decision-making described in the above note were completed with the assistance of the mid-level provider. I reviewed and agree with the findings presented. I attest that I had a [id number] encounter with the patient on the same day, and personally performed and documented my assessment and findings in the medical record. (John Flowers MD) Anusha Hastings Jun 23, 2016 08:50 John Flowers MD Jun 25, 2016 18:20
[2016-06-23] MEDS: SENNOSIDES 8.6 MG TAB PO SCH ×2 (09:00→20:25)
[2016-06-23] MEDS: SODIUM CHLORIDE 0.9% FLUSH 5 ML FLUSH IV FLUSH SCH ×2 (09:00→20:37)
[2016-06-23] MEDS: POLYETHYLENE GLYCOL 17 GM PKG PO SCH (09:00)
[2016-06-23] MEDS: DOCUSATE SODIUM 100 MG CAP PO SCH ×2 (09:00→20:36)
[2016-06-23] MEDS: LOPERAMIDE HCL SOLN 2 MG/10 ML UDC TUBE PRN (09:14)
[2016-06-23] MEDS: QUEtiapine FUMARATE 25 MG TAB PO SCH ×2 (09:14→20:36)
[2016-06-23] MEDS: METOPROLOL TARTRATE 25 MG TAB PO SCH ×2 (09:14→20:36)
[2016-06-23] MEDS: HEPARIN SODIUM - SQ 10,000 UNITS/ML VIAL SQ SCH ×2 (09:15→20:37)
[2016-06-23] MEDS: FAMOTIDINE 20 MG TAB NG SCH ×2 (09:15→20:36)
[2016-06-23] MEDS: levETIRAcetam 500 MG TAB PO SCH ×2 (09:15→20:36)
[2016-06-23] MEDS: ONDANSETRON HCL 4 MG/2 ML VIAL IV PRN (09:35)
[2016-06-23] MEDS: THIAMINE INJ 100 MG in SODIUM CHLORIDE 0.9% INJ 100 ML IV SCH (10:18)
[2016-06-23] MEDS: AMPHOTERICIN B 50 MG OTHER SCH (10:19)
[2016-06-23 10:27] LABS: CSF LYMPHOCYTES 14 %; CSF MONOCYTES 15 %; CSF NEUTROPHILS 70 %; GROSS BLOOD TUBE #1 0 (0); SUPERNATE COLOR TUBE #1 CLEAR (CLEAR); WBC TUBE #1 250 /MM3 (0-10)
[2016-06-23] MEDS: FLUCONAZOLE 400 MG PREMIX BAG 400 ML IV SCH ×2 (14:00→16:00)
[2016-06-24] VITALS (12 sets, daily range): BP systolic 105–131; BP diastolic 59–81; PULSE 66–88; RESP 14–25; TEMP 97.4–98.4; O2SAT 100
[2016-06-24] MEDS: CHLORHEXIDINE GLUCONATE 2 % 1 PACK (2 CLOTHS) TOP SCH (04:00)
[2016-06-24 04:41] LABS: AUTOMATED NEUTROPHIL # 5.9 TH/MM3 (1.8-7.7); BASOPHIL # 0.1 TH/MM3 (0-0.2); BASOPHIL % 0.9 % (0.0-2.0); EOSINOPHIL # 0.3 TH/MM3 (0-0.4); EOSINOPHIL % 3.2 % (0.0-4.0); HEMATOCRIT 30.2 % (39.0-51.0); HEMO FLAGS DIFF FINAL; LYMPHOCYTE # 1.3 TH/MM3 (1.0-4.8); MEAN CELL VOLUME 89.4 FL (80.0-100.0); MEAN CORPUSCULAR HEMOGLOBIN 30.4 PG (27.0-34.0); MONO % 8.2 % (0.0-8.0); NEUT % 71.7 % (16.0-70.0); PLATELET COUNT 420 TH/MM3 (150-450); RED BLOOD COUNT 3.38 MIL/MM3 (4.50-5.90); WHITE BLOOD COUNT 8.3 TH/MM3 (4.0-11.0)
[2016-06-24 05:08] LABS: ALT (GPT) 60 U/L (12-78); ANION GAP 6 MEQ/L (5-15); AST (GOT) 15 U/L (15-37); BICARBONATE 31.9 MEQ/L (21.0-32.0); BLOOD UREA NITROGEN 20 MG/DL (7-18); CHLORIDE 104 MEQ/L (98-107); GLOMERULAR FILTRATION RATE 88 ML/MIN (>89); MAGNESIUM 2.2 MG/DL (1.5-2.5); POTASSIUM 3.9 MEQ/L (3.5-5.1); SODIUM (NA) 142 MEQ/L (136-145)
[2016-06-24 05:10] LABS: ALKALINE PHOSPHATASE 97 U/L (45-117); TOTAL BILIRUBIN ADULT 0.1 MG/DL (0.2-1.0)
[2016-06-24] MEDS: FREE WATER G-TUBE SCH ×4 (06:00→18:00)
--- NOTE | 2016-06-24 08:04 | HHI.CCPN ---
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 The patient underwent placement of right frontal external ventricular drain for acute hydrocephalus and was transferred to [facility] for further treatment of the AVM by embolization followed by suboccipital craniotomy for hematoma evacuation and AVM resection. Postoperatively, he was slow to wake up, his EVD was Clamped and removed and his mental status was improving. Other complications include the UTI and agitation. He was started on Rocephin and Seroquel. The patient is being transferred back to [facility] due to confusion and CSF leak. EVD was placed. He was found to have budding yeast, pseudohyphae in CSF and Enterococcus in blood. Objective Vital Signs Date Time Temp Pulse Resp B/P Pulse Ox O2 Delivery O2 Flow Rate FiO2 06/24/16 06:00 73 06/24/16 04:00 98.2 20 113/72 100 06/20/16 19:00 Room Air Intake and Output 06/23/16 06/23/16 06/23/16 07:59 15:59 23:59 Intake Total 485 ml 1254 ml 664 ml Output Total 77 ml 1223 ml 535 ml Balance 408 ml 31 ml 129 ml Result Diagram: 06/24/16 0415 06/24/16 0415 Objective Remarks GENERAL: 55-year-old male, conversant. Confused, oriented only to person. SKIN: Warm and dry. No rashes. HEAD: Dry posterior wound, clean, healing well. New right ventriculostomy placed 06/12. EVD draining 70 ml clear CSF in 24 hours NECK: Supple. No obstruction. Airway widely patent. CARDIOVASCULAR: RRR. S1, S2. Without murmurs, or rubs. RESPIRATORY: Few mobile secretions, clear with cough. Air entry equal bilaterally GASTROINTESTINAL: Abdomen soft, non-tender, nondistended. Normal BS MUSCULOSKELETAL: Warm, well perfused. Neuro: Oriented to person. Pupils are equal bilaterally reactive. Moves all 4 extremities spontaneously. Conversant. follows commands. 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 - status post AVM embolization at [facility] followed by suboccipital craniotomy for hematoma evacuation and AVM resection - further management per NSGY - Neurochecks per ICU routine - Keppra 500 mg twice a day for seizure prophylaxis - BP controll CSF leak - EVD in place - wean per surgeon recommendations Hermila Ventriculitis - Amphotericin B - systemic and intraventricular - right ventriculostomy 06/03, replaced 06/12 - hermila isolated from CSF not susceptible to Ampho B; however will continue current regimen for now due to clinical improvement - ID input appreciated Enterococcus Bacteremia - Continue Vanc IV - stop today - completed course Hypertension - Metoprol 12.5 milligrams Q12 hours - continue Telemetry Acute protein calorie malnutritionmild - Continue Jevity 1.5 goal 50 cc an hour Hypernatremia - resolved - Na today 142 - Continue free water 200 cc every 6 - ICU electrolyte protocol Normocytic anemia - Does not meet transfusion triggers at this time. - Daily CBC Prophylaxis: GI Prophylaxis Pepcid 20 mg twice a day: DVT Prophylaxis - SCDs - Heparin subQ Level 3 Problem Qualifiers (1) UTI (urinary tract infection): (2) Cerebellar hemorrhage: Qualified Code: I61.4 - Nontraumatic intracerebral hemorrhage of cerebellum, unspecified laterality Chidi Trimble MD Jun 24, 2016 08:04
[2016-06-24] MEDS: SODIUM CHLORIDE 0.9% FLUSH 5 ML FLUSH IV FLUSH SCH ×2 (09:00→21:09)
[2016-06-24] MEDS: THIAMINE INJ 100 MG in SODIUM CHLORIDE 0.9% INJ 100 ML IV SCH (09:00)
[2016-06-24] MEDS: HEPARIN SODIUM - SQ 10,000 UNITS/ML VIAL SQ SCH ×2 (09:00→21:09)
[2016-06-24] MEDS: POLYETHYLENE GLYCOL 17 GM PKG PO SCH (09:00)
[2016-06-24] MEDS: SENNOSIDES 8.6 MG TAB PO SCH ×2 (09:00→21:00)
[2016-06-24] MEDS: AMPHOTERICIN B 50 MG OTHER SCH (09:00)
--- NOTE | 2016-06-24 09:07 | HHI.NSPN ---
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 The patient underwent placement of right frontal external ventricular drain for acute hydrocephalus and was transferred to [facility] for further treatment of the AVM by embolization followed by suboccipital craniotomy for hematoma evacuation, and AVM resection at [facility] . Postoperatively, he was slow to wake up, his EVD was Clamped and removed at [facility] and his mental status was improving. He had UTI and agitation. He was started on Rocephin and Seroquel. The patient was being transferred back to [facility] due to confusion and CSF leak. 06/04: s/p placement of ventriculostomy drain. no further leaking noted from posterior fossa wound, there has been scab formation also. 06/05: no wound leak seen 06/06: appears more awake today, wound dry, no evidence of CSF leaking overnight 06/09: wound dry, sitting up in chair eating breakfast 06/10: follow up CT Brain reviewed 06/11: prelim CSF testing shows elevated WBCs, proteins with low glucose, 06/12: CSF showing fungal growth, intraventricular ampho b ordered 06/13: EVD draining, no significant changes to neuro checks overnight 06/16: neuro checks stable overnight, alert, pleasantly confused today 06/17: intermittently confused, working with PT, repeat CSF cx pending 06/18: intermittent complaints of headaches yesterday, currently denies HAs, moves all four extremities, reported no allergic type rx following administration of intraventric ampho 06/19: reported SCHULTZ following ampho b adminstration that resolves, no changed in mental status or neuro checks 06/20: pleasantly confused, neuro checks stable overnight. 06/23: sitting up in chair, stably confused. 06/24: repeat CSF fungal stain neg, cultures pending (Anusha Hastings) Labs, Micro, & Vital Signs Results Date Time Temp Pulse Resp B/P Pulse Ox O2 Delivery O2 Flow Rate FiO2 06/24/16 06:00 73 06/24/16 04:00 98.2 88 20 113/72 100 06/24/16 04:00 88 06/24/16 02:00 68 06/24/16 00:00 72 06/24/16 00:00 97.4 72 19 105/59 100 06/23/16 22:00 68 06/23/16 20:00 85 06/23/16 20:00 97.9 85 18 140/89 100 06/23/16 18:00 85 06/23/16 16:00 90 06/23/16 16:00 99.0 88 14 141/83 100 06/23/16 14:00 90 06/23/16 12:00 99.5 86 17 135/84 100 06/23/16 12:00 90 06/23/16 10:00 83 06/24/16 06:59 Intake Total 2652 ml Output Total 2476 ml Balance 176 ml Constitutional Vital Signs Date Time Temp Pulse Resp B/P Pulse Ox O2 Delivery O2 Flow Rate FiO2 06/24/16 06:00 73 06/24/16 04:00 98.2 88 20 113/72 100 06/24/16 04:00 88 06/24/16 02:00 68 06/24/16 00:00 72 06/24/16 00:00 97.4 72 19 105/59 100 06/23/16 22:00 68 06/23/16 20:00 85 06/23/16 20:00 97.9 85 18 140/89 100 06/23/16 18:00 85 06/23/16 16:00 90 06/23/16 16:00 99.0 88 14 141/83 100 06/23/16 14:00 90 06/23/16 12:00 99.5 86 17 135/84 100 06/23/16 12:00 90 06/23/16 10:00 83 06/24/16 06:59 Intake Total 2652 ml Output Total 2476 ml Balance 176 ml (Anusha Hastings) Review of Systems/Exam Exam He is alert, oriented to name only, pleasantly confused, smiling. Sitting up in chair. follows few simple commands. surgical healing well, no evidence of drainage noted Ventriculostomy drain in place, open at 0 cm H20. CSF is cloudy and slightly xanthochromic. EVD site is clean without evidence of infection. CN: pupils 3 mm equal, gross EOMs intact. facial appears symmetric at rest, tongue midline Motor: moves grossly all four extremities symmetrically to command, on upper extremity restraints and hand mittens Extremities: no swelling Skin: no cyanosis or erythema (Anusha Hastings) Medications Current Medications Current Medications Medications (Trade) Dose Ordered Sig/Paula Route PRN Reason Start Time Stop Time Status Last Admin Dose Admin Naloxone HCl (Narcan Inj) 0.4 mg UNSCH PRN IV SEE LABEL COMMENTS 05/29/16 15:00 Acetaminophen/ Butalbital/ Caffeine (Fioricet 325-50-40) 1 tab Q6H PRN PO PAIN GREATER THAN 5 or headach 05/29/16 15:00 06/21/16 13:23 Heparin Sodium (Porcine) (Heparin Inj) 5,000 units Q12HR SQ 05/29/16 21:00 06/23/16 20:37 Levetriacetam (Keppra) 500 mg Q12HR PO 05/29/16 21:00 06/23/16 20:36 Morphine Sulfate (Morphine Inj) 2 mg Q3H PRN IV PUSH BREAKTHROUGH PAIN 06/02/16 10:30 06/21/16 11:33 Diphenhydramine HCl (Benadryl 2% Cream) 1 applic TID PRN TOPICAL ITCHING 06/02/16 11:15 IV Flush (NS Flush) 2 ml UNSCH PRN IV FLUSH FLUSH AFTER USING IV ACCESS 06/03/16 09:45 IV Flush (NS Flush) 2 ml BID IV FLUSH 06/03/16 21:00 06/23/16 20:37 Acetaminophen (Tylenol) 650 mg Q6H PRN PO FEVER >100F 06/03/16 09:45 06/22/16 09:11 Ondansetron HCl (Zofran Inj) 4 mg Q6H PRN IV NAUSEA OR VOMITING 06/03/16 09:45 06/23/16 09:35 Docusate Sodium (Colace) 100 mg BID PO 06/03/16 21:00 06/22/16 23:23 Sennosides (Senokot) 17.2 mg BID PO 06/03/16 09:45 06/22/16 23:23 Miscellaneous Information 1 Q361D XX 06/03/16 09:45 Chlorhexidine Gluconate (Chlorhexidine 2% Cloth) 3 pack Taper DAILY@04 TOP 06/04/16 04:00 05/31/17 03:59 06/24/16 04:00 Chlorhexidine Gluconate 3 pack 3 pack UNSCH PRN TOP HYGIENIC CARE 06/03/16 09:45 Thiamine HCl/ Sodium Chloride (Thiamine Inj/NS Inj) 101 ml @ 101 mls/hr DAILY IV 06/04/16 09:00 06/23/16 10:18 Polyethylene Glycol 17 gm 17 gm DAILY PO 06/04/16 09:00 06/22/16 08:36 Sodium Chloride (NS 1000 ml Inj) 1,000 ml @ 100 mls/hr Q10H IV 06/03/16 21:16 Hold 06/05/16 22:23 Famotidine (Pepcid) 20 mg BID NG 06/04/16 09:00 06/23/16 20:36 Metoprolol Tartrate (Lopressor) 12.5 mg Q12HR PO 06/05/16 21:00 06/23/16 20:36 Quetiapine Fumarate (SEROquel) 25 mg BID PO 06/06/16 09:00 06/23/16 20:36 Loperamide HCl (Imodium Liq) 2 mg UNSCH PRN TUBE DIARRHEA 06/06/16 16:15 06/23/16 09:14 Diphenhydramine HCl (Benadryl Inj) 25 mg Q24H PRN IV PRE-MED PRIOR TO AMPHOTERCIN B 06/11/16 17:00 06/22/16 07:28 Hydrocortisone Sodium Succinate 25 mg 25 mg Q24H PRN IV PRE-MED PRIOR TO AMPHOTERCIN B 06/11/16 17:00 06/22/16 07:28 Potassium Chloride 100 ml @ 50 mls/hr Q2H PRN IV For Potassium 2.8 - 3.2 mEq/L 06/12/16 07:15 06/23/16 09:43 Potassium Chloride (KCl 20 Meq Premix Inj) 100 ml @ 50 mls/hr Q2H PRN IV For Potassium 2.8 - 3.2 mEq/L 06/12/16 07:15 Potassium Chloride 40 meq 40 meq UNSCH PRN PO/TUBE For Potassium 3.3 - 3.5 mEq/L 06/12/16 07:15 06/20/16 07:58 Potassium Chloride 100 ml @ 25 mls/hr UNSCH PRN IV For Potassium 3.3 - 3.5 mEq/L 06/12/16 07:15 Potassium Chloride 100 ml @ 50 mls/hr Q2H PRN IV For Potassium 3.3 - 3.5 mEq/L 06/12/16 07:15 Magnesium Sulfate/ Sodium Chloride (Magnesium Sulfate Inj/NS Inj) 100 ml @ 50 mls/hr UNSCH PRN IV For Magnesium 0.9 - 1.1 mg/dL 06/12/16 07:15 Magnesium Oxide 800 mg 800 mg UNSCH PRN PO For Magnesium 1.2 - 1.6 mg/dL 06/12/16 07:15 Magnesium Sulfate/ Sodium Chloride (Magnesium Sulfate Inj/NS Inj) 100 ml @ 50 mls/hr UNSCH PRN IV For Magnesium 1.2 - 1.6 mg/dL 06/12/16 07:15 Potassium Phosphate 2000 mg 2,000 mg Q4H PRN PO For Phosphorus < 2.5 mg/dL 06/12/16 07:15 Sodium Phosphate/ Sodium Chloride (Sodium Phosphate Inj/NS 250 ml Inj) 250 ml @ 42 mls/hr UNSCH PRN IV For Phosphorus < 2.5 mg/dL 06/12/16 07:15 Potassium Chloride (KCl 40 Meq/30 ml Liq) 40 meq UNSCH PRN PO/TUBE SEE LABEL COMMENTS 06/12/16 07:15 Potassium Phosphate 2000 mg 2,000 mg UNSCH PRN PO/TUBE SEE LABEL COMMENTS 06/12/16 07:15 Potassium Phosphate/Sodium Chloride (Potassium Phosphate Inj/NS 250 ml Inj) 260 ml @ 42 mls/hr UNSCH PRN IV SEE LABEL COMMENTS 06/12/16 07:15 Amphotericin B (Amphotericin B Conv Inj) 1 mg Q24H OTHER 06/13/16 09:00 06/23/16 10:19 Water (Free Water) 200 ml Q6HR G-TUBE 06/16/16 12:00 06/24/16 06:00 IV Flush (NS Flush) See Protocol DAILY IVF 06/23/16 09:00 06/23/16 10:18 IV Flush (NS Flush) See Protocol UNSCH PRN IVF SEE PROTOCOL TABLE 06/22/16 12:30 IV Flush See Protocol UNSCH PRN IVF SEE PROTOCOL TABLE 06/22/16 12:30 Fluconazole/ Sodium Chloride 400 ml @ 200 mls/hr Q24H IV 06/22/16 14:00 06/23/16 14:00 Fluconazole/ Sodium Chloride (Diflucan 400 Mg Premix Bag) 400 ml @ 200 mls/hr Q24H IV 06/23/16 16:00 06/23/16 16:00 (Anusha Hastings) Medical Decision Making MDM Remarks 55 y/o male s/p posterior fossa craniectomy for evacuation of cerebellar bleed due to AVM with embolization at [facility] s/p ventriculostomy placement for CSF leak, resolved CSF leak ventriculitis with growth of Hermila, replacement of ventriculostomy drain , started intraventricular Ampho B tx 06/12/16 (Anusha Hastings) Plan Plan Remarks cont daily intraventricular administration ampho b per ID raise EVD to 5 cm H20 cont daily therapy repeat CSF cultures 06/23 pending Dose 13 Intraventricular Ampho B given today (Anusha Hastings) Attending Statement The exam, history, and the medical decision-making described in the above note were completed with the assistance of the mid-level provider. I reviewed and agree with the findings presented. I attest that I had a [id number] encounter with the patient on the same day, and personally performed and documented my assessment and findings in the medical record. (Jhon Flowers MD) Anusha Hastings Jun 24, 2016 09:07 John Flowers MD Jun 25, 2016 18:23
[2016-06-24] MEDS: DOCUSATE SODIUM 100 MG CAP PO SCH ×2 (10:13→21:00)
[2016-06-24] MEDS: levETIRAcetam 500 MG TAB PO SCH ×2 (10:13→21:09)
[2016-06-24] MEDS: QUEtiapine FUMARATE 25 MG TAB PO SCH ×2 (10:14→21:09)
[2016-06-24] MEDS: METOPROLOL TARTRATE 25 MG TAB PO SCH ×2 (10:14→21:09)
[2016-06-24] MEDS: FAMOTIDINE 20 MG TAB NG SCH ×2 (10:14→21:09)
[2016-06-24] MEDS: ACETAMIN 325 MG/BUTALBITAL 50 MG/CAFFEINE 40 MG TAB PO PRN (14:57)
[2016-06-24] MEDS: FLUCONAZOLE 400 MG PREMIX BAG 400 ML IV SCH ×2 (14:57→16:00)
[2016-06-25] VITALS (11 sets, daily range): BP systolic 105–142; BP diastolic 67–81; PULSE 66–83; RESP 13–17; TEMP 97.7–99.4; O2SAT 100
[2016-06-25] MEDS: CHLORHEXIDINE GLUCONATE 2 % 1 PACK (2 CLOTHS) TOP SCH (04:00)
[2016-06-25 04:23] LABS: BASOPHIL % 0.2 % (0.0-2.0); EOSINOPHIL # 0.3 TH/MM3 (0-0.4); EOSINOPHIL % 3.9 % (0.0-4.0); HEMATOCRIT 29.5 % (39.0-51.0); HEMO FLAGS DIFF FINAL; LYMPH % 18.1 % (9.0-44.0); LYMPHOCYTE # 1.3 TH/MM3 (1.0-4.8); MEAN CELL VOLUME 89.9 FL (80.0-100.0); MEAN CORPUSCULAR HGB CONC 33.4 % (32.0-36.0); MONO % 8.6 % (0.0-8.0); NEUT % 69.2 % (16.0-70.0); PLATELET COUNT 399 TH/MM3 (150-450); RED BLOOD COUNT 3.28 MIL/MM3 (4.50-5.90); RED CELL DISTRIBUTION WIDTH 13.8 % (11.6-17.2); WHITE BLOOD COUNT 7.3 TH/MM3 (4.0-11.0)
[2016-06-25 04:33] LABS: ALT (GPT) 56 U/L (12-78); ANION GAP 6 MEQ/L (5-15); AST (GOT) 11 U/L (15-37); BICARBONATE 31.6 MEQ/L (21.0-32.0); BLOOD UREA NITROGEN 21 MG/DL (7-18); CHLORIDE 101 MEQ/L (98-107); GLOMERULAR FILTRATION RATE 94 ML/MIN (>89); MAGNESIUM 2.1 MG/DL (1.5-2.5); POTASSIUM 3.7 MEQ/L (3.5-5.1); SODIUM (NA) 139 MEQ/L (136-145)
[2016-06-25 04:36] LABS: ALKALINE PHOSPHATASE 88 U/L (45-117); TOTAL BILIRUBIN ADULT 0.1 MG/DL (0.2-1.0)
[2016-06-25] MEDS: FREE WATER G-TUBE SCH ×5 (05:09→23:45)
--- NOTE | 2016-06-25 07:01 | HHI.CCPN ---
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 The patient underwent placement of right frontal external ventricular drain for acute hydrocephalus and was transferred to [facility] for further treatment of the AVM by embolization followed by suboccipital craniotomy for hematoma evacuation and AVM resection. Postoperatively, he was slow to wake up, his EVD was Clamped and removed and his mental status was improving. Other complications include the UTI and agitation. He was started on Rocephin and Seroquel. The patient is being transferred back to [facility] due to confusion and CSF leak. EVD was placed. He was found to have budding yeast, pseudohyphae in CSF and Enterococcus in blood. Objective Vital Signs Date Time Temp Pulse Resp B/P Pulse Ox O2 Delivery O2 Flow Rate FiO2 06/25/16 06:00 70 06/25/16 04:00 98.0 13 116/67 100 Intake and Output 06/24/16 06/24/16 06/24/16 07:59 15:59 23:59 Intake Total 734 ml 741 ml 490 ml Output Total 718 ml 303 ml 303 ml Balance 16 ml 438 ml 187 ml Result Diagram: 06/25/16 0405 06/25/16 0405 Objective Remarks GENERAL: 55-year-old male, conversant. Confused, oriented only to person. SKIN: Warm and dry. No rashes. HEAD: Dry posterior wound, clean, healing well. New right ventriculostomy placed 06/12. EVD draining 70 ml clear CSF in 24 hours NECK: Supple. No obstruction. Airway widely patent. CARDIOVASCULAR: RRR. S1, S2. Without murmurs, or rubs. RESPIRATORY: Few mobile secretions, clear with cough. Air entry equal bilaterally GASTROINTESTINAL: Abdomen soft, non-tender, nondistended. Normal BS MUSCULOSKELETAL: Warm, well perfused. Neuro: Oriented to person. Pupils are equal bilaterally reactive. Moves all 4 extremities spontaneously. Conversant. follows commands. 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 - status post AVM embolization at [facility] followed by suboccipital craniotomy for hematoma evacuation and AVM resection - wean EVD per NSGY - EVD at 5 since yesterday - Neurochecks per ICU routine - Keppra 500 mg twice a day for seizure prophylaxis - BP control CSF leak - EVD in place - wean per Neurosurgeon Hermila Ventriculitis - Amphotericin B - systemic and intraventricular - right ventriculostomy 06/03, replaced 06/12 - hermila isolated from CSF not susceptible to Ampho B; however will continue current regimen for now due to clinical improvement - ID input appreciated - no growth on a sample 06/23 Enterococcus Bacteremia - Completed course of Vanc IV 06/24 Hypertension - Metoprol 12.5 milligrams Q12 hours - continue Telemetry Acute protein calorie malnutritionmild - Continue Jevity 1.5 goal 50 cc an hour - mechanical soft diet Hypernatremia - resolved - Na today 139 - decrease free water to 100 cc every 6 - ICU electrolyte protocol Normocytic anemia - Does not meet transfusion triggers at this time. - Daily CBC Prophylaxis: GI Prophylaxis Pepcid 20 mg twice a day: DVT Prophylaxis - SCDs - Heparin subQ Level 3 Problem Qualifiers (1) UTI (urinary tract infection): (2) Cerebellar hemorrhage: Qualified Code: I61.4 - Nontraumatic intracerebral hemorrhage of cerebellum, unspecified laterality Chidi Trimble MD Jun 25, 2016 07:01
[2016-06-25] MEDS: FAMOTIDINE 20 MG TAB NG SCH ×3 (09:00→21:24)
[2016-06-25] MEDS: POLYETHYLENE GLYCOL 17 GM PKG PO SCH (09:00)
[2016-06-25] MEDS: SODIUM CHLORIDE 0.9% FLUSH 5 ML FLUSH IV FLUSH SCH ×2 (09:19→21:41)
[2016-06-25] MEDS: AMPHOTERICIN B 50 MG OTHER SCH (09:20)
[2016-06-25] MEDS: METOPROLOL TARTRATE 25 MG TAB PO SCH ×2 (09:21→21:40)
[2016-06-25] MEDS: DOCUSATE SODIUM 100 MG CAP PO SCH ×2 (09:21→21:24)
[2016-06-25] MEDS: QUEtiapine FUMARATE 25 MG TAB PO SCH ×2 (09:21→21:24)
[2016-06-25] MEDS: SENNOSIDES 8.6 MG TAB PO SCH ×2 (09:21→21:24)
[2016-06-25] MEDS: levETIRAcetam 500 MG TAB PO SCH ×2 (09:21→21:40)
[2016-06-25] MEDS: HEPARIN SODIUM - SQ 10,000 UNITS/ML VIAL SQ SCH ×2 (09:22→21:40)
--- NOTE | 2016-06-25 09:33 | HHI.NSPN ---
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 The patient underwent placement of right frontal external ventricular drain for acute hydrocephalus and was transferred to [facility] for further treatment of the AVM by embolization followed by suboccipital craniotomy for hematoma evacuation, and AVM resection at [facility] . Postoperatively, he was slow to wake up, his EVD was Clamped and removed at [facility] and his mental status was improving. He had UTI and agitation. He was started on Rocephin and Seroquel. The patient was being transferred back to [facility] due to confusion and CSF leak. 06/04: s/p placement of ventriculostomy drain. no further leaking noted from posterior fossa wound, there has been scab formation also. 06/05: no wound leak seen 06/06: appears more awake today, wound dry, no evidence of CSF leaking overnight 06/09: wound dry, sitting up in chair eating breakfast 06/10: follow up CT Brain reviewed 06/11: prelim CSF testing shows elevated WBCs, proteins with low glucose, 06/12: CSF showing fungal growth, intraventricular ampho b ordered 06/13: EVD draining, no significant changes to neuro checks overnight 06/16: neuro checks stable overnight, alert, pleasantly confused today 06/17: intermittently confused, working with PT, repeat CSF cx pending 06/18: intermittent complaints of headaches yesterday, currently denies HAs, moves all four extremities, reported no allergic type rx following administration of intraventric ampho 06/19: reported SCHULTZ following ampho b adminstration that resolves, no changed in mental status or neuro checks 06/20: pleasantly confused, neuro checks stable overnight. 06/23: sitting up in chair, stably confused. 06/24: repeat CSF fungal stain neg, cultures pending 06/25: about to sit up in chair for breakfast, only transferring short distance from bed to chair and he is reported to still be quite ataxic. Final fungal smear reports no fungal elements seen. (Anusha Hastings) Labs, Micro, & Vital Signs Results Date Time Temp Pulse Resp B/P Pulse Ox O2 Delivery O2 Flow Rate FiO2 06/25/16 06:00 70 06/25/16 04:00 67 06/25/16 04:00 98.0 67 13 116/67 100 06/25/16 02:00 67 06/25/16 00:00 66 06/25/16 00:00 97.7 66 13 105/67 100 06/24/16 22:00 66 06/24/16 20:00 67 06/24/16 20:00 97.7 67 14 114/71 100 06/24/16 18:00 73 06/24/16 16:00 98.4 72 25 111/61 100 06/24/16 16:00 70 06/24/16 14:00 75 06/24/16 12:00 86 06/24/16 12:00 97.9 80 21 131/81 100 06/24/16 10:00 78 06/25/16 07:00 Intake Total 2012 ml Output Total 1407 ml Balance 606 ml Constitutional Vital Signs Date Time Temp Pulse Resp B/P Pulse Ox O2 Delivery O2 Flow Rate FiO2 06/25/16 06:00 70 06/25/16 04:00 67 06/25/16 04:00 98.0 67 13 116/67 100 06/25/16 02:00 67 06/25/16 00:00 66 06/25/16 00:00 97.7 66 13 105/67 100 06/24/16 22:00 66 06/24/16 20:00 67 06/24/16 20:00 97.7 67 14 114/71 100 06/24/16 18:00 73 06/24/16 16:00 98.4 72 25 111/61 100 06/24/16 16:00 70 06/24/16 14:00 75 06/24/16 12:00 86 06/24/16 12:00 97.9 80 21 131/81 100 06/24/16 10:00 78 06/25/16 07:00 Intake Total 2012 ml Output Total 1407 ml Balance 606 ml (Anusha Hastings) Review of Systems/Exam Exam He is alert. Speech is fluent and converses, but confused. follows few simple commands. surgical healing well, no evidence of drainage noted Ventriculostomy drain open at 5 cm H20, draining well. CSF is appears clearer in color but with slight cloudiness. EVD site is intact, and clean CN: pupils 3 mm equal, gross EOMs intact. facial appears symmetric at rest Motor: moves grossly all four extremities symmetrically to command, on upper extremity restraints and hand mittens Extremities: no swelling Skin: no cyanosis or erythema (Anusha Hastings) Medications Current Medications Current Medications Medications (Trade) Dose Ordered Sig/Paula Route PRN Reason Start Time Stop Time Status Last Admin Dose Admin Naloxone HCl (Narcan Inj) 0.4 mg UNSCH PRN IV SEE LABEL COMMENTS 05/29/16 15:00 Acetaminophen/ Butalbital/ Caffeine (Fioricet 325-50-40) 1 tab Q6H PRN PO PAIN GREATER THAN 5 or headach 05/29/16 15:00 06/24/16 14:57 Heparin Sodium (Porcine) (Heparin Inj) 5,000 units Q12HR SQ 05/29/16 21:00 06/25/16 09:22 Levetriacetam (Keppra) 500 mg Q12HR PO 05/29/16 21:00 06/25/16 09:21 Morphine Sulfate (Morphine Inj) 2 mg Q3H PRN IV PUSH BREAKTHROUGH PAIN 06/02/16 10:30 06/21/16 11:33 Diphenhydramine HCl (Benadryl 2% Cream) 1 applic TID PRN TOPICAL ITCHING 06/02/16 11:15 IV Flush (NS Flush) 2 ml UNSCH PRN IV FLUSH FLUSH AFTER USING IV ACCESS 06/03/16 09:45 IV Flush (NS Flush) 2 ml BID IV FLUSH 06/03/16 21:00 06/25/16 09:19 Acetaminophen (Tylenol) 650 mg Q6H PRN PO FEVER >100F 06/03/16 09:45 06/22/16 09:11 Ondansetron HCl (Zofran Inj) 4 mg Q6H PRN IV NAUSEA OR VOMITING 06/03/16 09:45 06/23/16 09:35 Docusate Sodium (Colace) 100 mg BID PO 06/03/16 21:00 06/25/16 09:21 Sennosides (Senokot) 17.2 mg BID PO 06/03/16 09:45 06/25/16 09:21 Miscellaneous Information 1 Q361D XX 06/03/16 09:45 Chlorhexidine Gluconate (Chlorhexidine 2% Cloth) 3 pack Taper DAILY@04 TOP 06/04/16 04:00 05/31/17 03:59 06/25/16 04:00 Chlorhexidine Gluconate 3 pack 3 pack UNSCH PRN TOP HYGIENIC CARE 06/03/16 09:45 Thiamine HCl/ Sodium Chloride (Thiamine Inj/NS Inj) 101 ml @ 101 mls/hr DAILY IV 06/04/16 09:00 06/24/16 09:00 Polyethylene Glycol 17 gm 17 gm DAILY PO 06/04/16 09:00 06/22/16 08:36 Sodium Chloride (NS 1000 ml Inj) 1,000 ml @ 100 mls/hr Q10H IV 06/03/16 21:16 Hold 06/05/16 22:23 Famotidine (Pepcid) 20 mg BID NG 06/04/16 09:00 06/24/16 21:09 Metoprolol Tartrate (Lopressor) 12.5 mg Q12HR PO 06/05/16 21:00 06/25/16 09:21 Quetiapine Fumarate (SEROquel) 25 mg BID PO 06/06/16 09:00 06/25/16 09:21 Loperamide HCl (Imodium Liq) 2 mg UNSCH PRN TUBE DIARRHEA 06/06/16 16:15 06/23/16 09:14 Diphenhydramine HCl (Benadryl Inj) 25 mg Q24H PRN IV PRE-MED PRIOR TO AMPHOTERCIN B 06/11/16 17:00 06/22/16 07:28 Hydrocortisone Sodium Succinate 25 mg 25 mg Q24H PRN IV PRE-MED PRIOR TO AMPHOTERCIN B 06/11/16 17:00 06/22/16 07:28 Potassium Chloride 100 ml @ 50 mls/hr Q2H PRN IV For Potassium 2.8 - 3.2 mEq/L 06/12/16 07:15 06/23/16 09:43 Potassium Chloride (KCl 20 Meq Premix Inj) 100 ml @ 50 mls/hr Q2H PRN IV For Potassium 2.8 - 3.2 mEq/L 06/12/16 07:15 Potassium Chloride 40 meq 40 meq UNSCH PRN PO/TUBE For Potassium 3.3 - 3.5 mEq/L 06/12/16 07:15 06/20/16 07:58 Potassium Chloride 100 ml @ 25 mls/hr UNSCH PRN IV For Potassium 3.3 - 3.5 mEq/L 06/12/16 07:15 Potassium Chloride 100 ml @ 50 mls/hr Q2H PRN IV For Potassium 3.3 - 3.5 mEq/L 06/12/16 07:15 Magnesium Sulfate/ Sodium Chloride (Magnesium Sulfate Inj/NS Inj) 100 ml @ 50 mls/hr UNSCH PRN IV For Magnesium 0.9 - 1.1 mg/dL 06/12/16 07:15 Magnesium Oxide 800 mg 800 mg UNSCH PRN PO For Magnesium 1.2 - 1.6 mg/dL 06/12/16 07:15 Magnesium Sulfate/ Sodium Chloride (Magnesium Sulfate Inj/NS Inj) 100 ml @ 50 mls/hr UNSCH PRN IV For Magnesium 1.2 - 1.6 mg/dL 06/12/16 07:15 Potassium Phosphate 2000 mg 2,000 mg Q4H PRN PO For Phosphorus < 2.5 mg/dL 06/12/16 07:15 Sodium Phosphate/ Sodium Chloride (Sodium Phosphate Inj/NS 250 ml Inj) 250 ml @ 42 mls/hr UNSCH PRN IV For Phosphorus < 2.5 mg/dL 06/12/16 07:15 Potassium Chloride (KCl 40 Meq/30 ml Liq) 40 meq UNSCH PRN PO/TUBE SEE LABEL COMMENTS 06/12/16 07:15 Potassium Phosphate 2000 mg 2,000 mg UNSCH PRN PO/TUBE SEE LABEL COMMENTS 06/12/16 07:15 Potassium Phosphate/Sodium Chloride (Potassium Phosphate Inj/NS 250 ml Inj) 260 ml @ 42 mls/hr UNSCH PRN IV SEE LABEL COMMENTS 06/12/16 07:15 Amphotericin B (Amphotericin B Conv Inj) 1 mg Q24H OTHER 06/13/16 09:00 06/25/16 09:20 Water (Free Water) 200 ml Q6HR G-TUBE 06/16/16 12:00 06/25/16 05:09 IV Flush (NS Flush) See Protocol DAILY IVF 06/23/16 09:00 06/24/16 09:00 IV Flush (NS Flush) See Protocol UNSCH PRN IVF SEE PROTOCOL TABLE 06/22/16 12:30 IV Flush See Protocol UNSCH PRN IVF SEE PROTOCOL TABLE 06/22/16 12:30 Fluconazole/ Sodium Chloride 400 ml @ 200 mls/hr Q24H IV 06/22/16 14:00 06/24/16 14:57 Fluconazole/ Sodium Chloride (Diflucan 400 Mg Premix Bag) 400 ml @ 200 mls/hr Q24H IV 06/23/16 16:00 06/24/16 16:00 (Anusha Hastings) Medical Decision Making MDM Remarks 55 y/o male s/p posterior fossa craniectomy for evacuation of cerebellar bleed due to AVM with embolization at [facility] s/p ventriculostomy placement for CSF leak, resolved CSF leak ventriculitis with growth of Hermila, replacement of ventriculostomy drain , started intraventricular Ampho B tx 06/12/16 (Anusha Hastings) Plan Plan Remarks fungal smear 06/23 final report negative, awaiting final cultures will continue daily intra/ventricular administration ampho b per ID EVD to 5 cm H20 cont daily therapy Dose 14 Intraventricular Ampho B given today (Anusha Hastings) Attending Statement The exam, history, and the medical decision-making described in the above note were completed with the assistance of the mid-level provider. I reviewed and agree with the findings presented. I attest that I had a [id number] encounter with the patient on the same day, and personally performed and documented my assessment and findings in the medical record. (John Flowers MD) Anusha Hastings Jun 25, 2016 09:32 John Flowers MD Jun 25, 2016 09:46
[2016-06-25] MEDS: THIAMINE INJ 100 MG in SODIUM CHLORIDE 0.9% INJ 100 ML IV SCH (09:55)
[2016-06-25] MEDS: FLUCONAZOLE 400 MG PREMIX BAG 400 ML IV SCH ×2 (14:39→17:14)
[2016-06-26] VITALS (10 sets, daily range): BP systolic 103–175; BP diastolic 63–93; PULSE 62–78; RESP 12–21; TEMP 97.3–98.6; O2SAT 100
[2016-06-26] MEDS: CHLORHEXIDINE GLUCONATE 2 % 1 PACK (2 CLOTHS) TOP SCH (03:09)
[2016-06-26 05:34] LABS: AUTOMATED NEUTROPHIL # 4.7 TH/MM3 (1.8-7.7); BASOPHIL % 0.6 % (0.0-2.0); EOSINOPHIL # 0.2 TH/MM3 (0-0.4); EOSINOPHIL % 3.1 % (0.0-4.0); HEMATOCRIT 28.4 % (39.0-51.0); HEMO FLAGS DIFF FINAL; LYMPH % 19.1 % (9.0-44.0); LYMPHOCYTE # 1.3 TH/MM3 (1.0-4.8); MEAN CELL VOLUME 89.6 FL (80.0-100.0); MEAN CORPUSCULAR HGB CONC 33.5 % (32.0-36.0); MONO % 9.7 % (0.0-8.0); NEUT % 67.5 % (16.0-70.0); PLATELET COUNT 350 TH/MM3 (150-450); RED BLOOD COUNT 3.17 MIL/MM3 (4.50-5.90); RED CELL DISTRIBUTION WIDTH 13.9 % (11.6-17.2)
[2016-06-26] MEDS: FREE WATER G-TUBE SCH ×3 (06:00→18:00)
[2016-06-26 06:01] LABS: ALKALINE PHOSPHATASE 95 U/L (45-117); ALT (GPT) 51 U/L (12-78); ANION GAP 7 MEQ/L (5-15); AST (GOT) 13 U/L (15-37); BICARBONATE 31.9 MEQ/L (21.0-32.0); BLOOD UREA NITROGEN 23 MG/DL (7-18); CHLORIDE 98 MEQ/L (98-107); GLOMERULAR FILTRATION RATE 83 ML/MIN (>89); MAGNESIUM 2.2 MG/DL (1.5-2.5); POTASSIUM 3.4 MEQ/L (3.5-5.1); SODIUM (NA) 137 MEQ/L (136-145); TOTAL BILIRUBIN ADULT 0.1 MG/DL (0.2-1.0)
--- NOTE | 2016-06-26 07:51 | HHI.CCPN ---
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 The patient underwent placement of right frontal external ventricular drain for acute hydrocephalus and was transferred to [facility] for further treatment of the AVM by embolization followed by suboccipital craniotomy for hematoma evacuation and AVM resection. Postoperatively, he was slow to wake up, his EVD was Clamped and removed and his mental status was improving. Other complications include the UTI and agitation. He was started on Rocephin and Seroquel. The patient is being transferred back to [facility] due to confusion and CSF leak. EVD was placed. He was found to have budding yeast, pseudohyphae in CSF and Enterococcus in blood. Objective Vital Signs Date Time Temp Pulse Resp B/P Pulse Ox O2 Delivery O2 Flow Rate FiO2 06/26/16 04:00 98.6 66 16 103/63 100 Intake and Output 06/25/16 06/25/16 06/25/16 07:59 15:59 23:59 Intake Total 782 ml 1092 ml 1201 ml Output Total 801 ml 260 ml 960 ml Balance -19 ml 832 ml 241 ml Result Diagram: 06/26/16 0515 06/26/16 0515 Objective Remarks GENERAL: 55-year-old male, conversant. Confused, oriented only to person. SKIN: Warm and dry. No rashes. HEAD: Dry posterior wound, clean, healing well. New right ventriculostomy placed 06/12. EVD draining 70 ml clear CSF in 24 hours NECK: Supple. No obstruction. Airway widely patent. CARDIOVASCULAR: RRR. S1, S2. Without murmurs, or rubs. RESPIRATORY: Few mobile secretions, clear with cough. Air entry equal bilaterally GASTROINTESTINAL: Abdomen soft, non-tender, nondistended. Normal BS MUSCULOSKELETAL: Warm, well perfused. Neuro: Oriented to person. Pupils are equal bilaterally reactive. Moves all 4 extremities spontaneously. Conversant. follows commands. 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 - status post AVM embolization at [facility] followed by suboccipital craniotomy for hematoma evacuation and AVM resection - EVD wean per NSGY, surrently at 5 - Neurochecks per ICU routine - Keppra 500 mg twice a day for seizure prophylaxis - BP control CSF leak - EVD in place - wean per Neurosurgeon - may need a CRIME PREVENTION WORKER shunt Hermila Ventriculitis - Amphotericin B - systemic and intraventricular - right ventriculostomy 06/03, replaced 06/12 - hermila isolated from CSF not susceptible to Ampho B; however will continue current regimen for now due to clinical improvement - management per ID - no growth on a sample 06/23 Enterococcus Bacteremia - Completed course of Vanc IV 06/24 Hypertension - Metoprol 12.5 milligrams Q12 hours - controlled - continue Telemetry Acute protein calorie malnutritionmild - Continue Jevity 1.5 goal 50 cc an hour - mechanical soft diet Hypernatremia - resolved - Na today 137 - decrease free water to 50cc every 6 - ICU electrolyte protocol Normocytic anemia - Does not meet transfusion triggers at this time. - Daily CBC Prophylaxis: GI Prophylaxis Pepcid 20 mg twice a day: DVT Prophylaxis - SCDs - Heparin subQ Level 2 Problem Qualifiers (1) UTI (urinary tract infection): (2) Cerebellar hemorrhage: Qualified Code: I61.4 - Nontraumatic intracerebral hemorrhage of cerebellum, unspecified laterality Chidi Trimble MD Jun 26, 2016 07:51
[2016-06-26] MEDS: levETIRAcetam 500 MG TAB PO SCH ×2 (08:16→21:07)
[2016-06-26] MEDS: FAMOTIDINE 20 MG TAB NG SCH ×2 (08:16→21:08)
[2016-06-26] MEDS: DOCUSATE SODIUM 100 MG CAP PO SCH ×2 (08:16→21:07)
[2016-06-26] MEDS: SODIUM CHLORIDE 0.9% FLUSH 5 ML FLUSH IV FLUSH SCH ×2 (08:16→21:08)
[2016-06-26] MEDS: POLYETHYLENE GLYCOL 17 GM PKG PO SCH (08:16)
[2016-06-26] MEDS: SENNOSIDES 8.6 MG TAB PO SCH ×2 (08:16→21:08)
[2016-06-26] MEDS: HEPARIN SODIUM - SQ 10,000 UNITS/ML VIAL SQ SCH ×2 (08:17→21:08)
[2016-06-26] MEDS: METOPROLOL TARTRATE 25 MG TAB PO SCH ×2 (08:17→21:07)
[2016-06-26] MEDS: THIAMINE INJ 100 MG in SODIUM CHLORIDE 0.9% INJ 100 ML IV SCH (08:17)
[2016-06-26] MEDS: QUEtiapine FUMARATE 25 MG TAB PO SCH ×2 (09:00→21:07)
[2016-06-26] MEDS: AMPHOTERICIN B 50 MG OTHER SCH (12:40)
[2016-06-26] MEDS: ACETAMIN 325 MG/BUTALBITAL 50 MG/CAFFEINE 40 MG TAB PO PRN (12:45)
[2016-06-26] MEDS: ONDANSETRON HCL 4 MG/2 ML VIAL IV PRN (13:02)
[2016-06-26] MEDS: FLUCONAZOLE 400 MG PREMIX BAG 400 ML IV SCH ×2 (14:08→15:44)
[2016-06-26] MEDS: MORPHINE SULFATE 4 MG/ML INJ IV PUSH PRN ×2 (14:09→17:40)
--- NOTE | 2016-06-26 14:16 | HHI.IDPN ---
Subjective Subjective Remarks is a 55 y/o CM with AVM s/p coiling. ID following for Hermila ventriculitis and E.faecalis bacteremia. Overnight events reviewed. No rash No diarrhea Awake, mumbles. Wants to be left alone. No seizures. tolerating Ampho intraventricular doses well. Antibiotics Diflucan IV Ampho Intra Ventricular. Lines Line sites with no e/o infection Past Medical History AVM s/p coil Allergies: Coded Allergies: Oxycodone (Unverified Allergy, Intermediate, ITCHY, 01/16/16) Objective . Vital Signs Date Time Temp Pulse Resp B/P Pulse Ox O2 Delivery O2 Flow Rate FiO2 06/26/16 13:45 25 06/26/16 12:00 66 06/26/16 12:00 97.6 66 19 128/75 100 06/26/16 10:00 66 06/26/16 08:00 98.0 68 14 128/69 100 06/26/16 08:00 62 06/26/16 04:00 98.6 66 16 103/63 100 06/26/16 00:00 97.3 62 12 107/63 100 06/25/16 20:00 98.4 82 17 132/74 100 06/25/16 18:00 80 06/25/16 16:00 99.4 80 17 142/81 100 06/25/16 16:00 80 06/25/16 06/25/16 06/26/16 14:59 22:59 06:59 Intake Total 1092 ml 1201 ml 750 ml Output Total 260 ml 960 ml 620 ml Balance 832 ml 241 ml 130 ml Intake Oral 340 ml 20 ml IV Total 102 ml 401 ml Tube Feeding 340 ml 430 ml 350 ml Other 310 ml 350 ml 400 ml Output Urine Total 260 ml 950 ml 600 ml Drainage Total 10 ml 20 ml # Bowel Movements 0 0 0 . Laboratory Tests Test 06/25/16 06/26/16 04:05 05:15 White Blood Count 7.3 TH/MM3 7.0 TH/MM3 Red Blood Count 3.28 MIL/MM3 3.17 MIL/MM3 Hemoglobin 9.8 GM/DL 9.5 GM/DL Hematocrit 29.5 % 28.4 % Mean Corpuscular Volume 89.9 FL 89.6 FL Mean Corpuscular Hemoglobin 30.0 PG 30.0 PG Mean Corpuscular Hemoglobin 33.4 % 33.5 % Concent Red Cell Distribution Width 13.8 % 13.9 % Platelet Count 399 TH/MM3 350 TH/MM3 Mean Platelet Volume 7.5 FL 7.5 FL Neutrophils (%) (Auto) 69.2 % 67.5 % Lymphocytes (%) (Auto) 18.1 % 19.1 % Monocytes (%) (Auto) 8.6 % 9.7 % Eosinophils (%) (Auto) 3.9 % 3.1 % Basophils (%) (Auto) 0.2 % 0.6 % Neutrophils # (Auto) 5.0 TH/MM3 4.7 TH/MM3 Lymphocytes # (Auto) 1.3 TH/MM3 1.3 TH/MM3 Monocytes # (Auto) 0.6 TH/MM3 0.7 TH/MM3 Eosinophils # (Auto) 0.3 TH/MM3 0.2 TH/MM3 Basophils # (Auto) 0.0 TH/MM3 0.0 TH/MM3 CBC Comment DIFF FINAL DIFF FINAL Differential Comment Laboratory Tests Test 06/25/16 06/26/16 04:05 05:15 Sodium Level 139 MEQ/L 137 MEQ/L Potassium Level 3.7 MEQ/L 3.4 MEQ/L Chloride Level 101 MEQ/L 98 MEQ/L Carbon Dioxide Level 31.6 MEQ/L 31.9 MEQ/L Anion Gap 6 MEQ/L 7 MEQ/L Blood Urea Nitrogen 21 MG/DL 23 MG/DL Creatinine 0.85 MG/DL 0.95 MG/DL Estimat Glomerular Filtration 94 ML/MIN 83 ML/MIN Rate Random Glucose 117 MG/DL 115 MG/DL Calcium Level 8.8 MG/DL 8.6 MG/DL Phosphorus Level 3.7 MG/DL 3.6 MG/DL Magnesium Level 2.1 MG/DL 2.2 MG/DL Total Bilirubin 0.1 MG/DL 0.1 MG/DL Aspartate Amino Transf 11 U/L 13 U/L (AST/SGOT) Alanine Aminotransferase 56 U/L 51 U/L (ALT/SGPT) Alkaline Phosphatase 88 U/L 95 U/L Total Protein 5.8 GM/DL 6.0 GM/DL Albumin 2.5 GM/DL 2.6 GM/DL Imaging Last Impressions Head CT 06/10/16 0600 Signed Impressions: Service Date/Time: Friday, June 10, 2016 05:01 - CONCLUSION: 1. 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 Locules of air within the fluid are decreasing since June 08. Right frontal ventriculostomy tube remains present with stable ventricular size. No hydrocephalus. Kirk Cortes MD Physical Exam GENERAL: Thin built, well-developed patient, in no apparent distress. SKIN: No rashes. Cool and dry. HEAD: Surgical site with no e/o infection. Ventric site with no gross e/o infection. EYES: Pupils equal round and reactive. Extraocular motions intact. ENT: Nose without bleeding, purulent drainage or septal hematoma. Throat without erythema, tonsillar hypertrophy or exudate. Uvula midline. Airway patent. NECK: Trachea midline.Supple, nontender, neck not very supple. Some stiffness towards end on flexion. ? patient reliability. CARDIOVASCULAR: Regular rate and rhythm. No murmur appreciated. RESPIRATORY: Clear to auscultation. Breath sounds equal bilaterally. No wheezes , rales, or rhonchi. GASTROINTESTINAL: Abdomen soft, non-tender, nondistended. MUSCULOSKELETAL: Extremities without clubbing, cyanosis, or edema. No joint tenderness, effusion, or edema noted. NEUROLOGICAL: Awake and alert. Responds to questions not appropriate all the times. Moves all 4 extremities. Psych: cooperative IV line sites with no e/o infection. Assessment & Plan Remarks Hermila albicans ventriculitis. MRI cannot be performed due to coils. CSF fluid was very cloudy and had fungal sediments. Patient candidate for PHARMACY INFORMATICS MANAGER shunt in near future. E.faecalis bacteremia: No central lines or PIVs. Treated. Repeat BCX negative. SIRS/Sepsis now controlled since Vanco IV started. AVM was transferred to [facility] for further treatment of the AVM by embolization followed by suboccipital craniotomy for hematoma evacuation and AVM resection. CSF leak and hydrocephalus s/p Rt sima hole and Ventriculostomy catheter placement 06/03/2016. s/p PICC placement. Recs: Discontinue Intra Venous amphotericin Liposomal. Continue Diflucan 800 mg IV every 24 hours. Continue Intraventricular Amphotericin instillation. Follow cultures Follow clinically Hermila albicans sent to [facility] for susceptibility. Continue Benadryl IV and Hydrocortisone IV as premedication for Amphotericin IV as well as if need prior to Intra ventricular dose. Will repeat CSF on Thursday next week 06/30/2016 will maryann BEARD for Neurosurgery. d/w . Jenifer Babin MD Jun 26, 2016 14:16
--- NOTE | 2016-06-26 16:24 | HHI.NSPN ---
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 The patient underwent placement of right frontal external ventricular drain for acute hydrocephalus and was transferred to [facility] for further treatment of the AVM by embolization followed by suboccipital craniotomy for hematoma evacuation, and AVM resection at [facility] . Postoperatively, he was slow to wake up, his EVD was Clamped and removed at [facility] and his mental status was improving. He had UTI and agitation. He was started on Rocephin and Seroquel. The patient was being transferred back to [facility] due to confusion and CSF leak. 06/04: s/p placement of ventriculostomy drain. no further leaking noted from posterior fossa wound, there has been scab formation also. 06/05: no wound leak seen 06/06: appears more awake today, wound dry, no evidence of CSF leaking overnight 06/09: wound dry, sitting up in chair eating breakfast 06/10: follow up CT Brain reviewed 06/11: prelim CSF testing shows elevated WBCs, proteins with low glucose, 06/12: CSF showing fungal growth, intraventricular ampho b ordered 06/13: EVD draining, no significant changes to neuro checks overnight 06/16: neuro checks stable overnight, alert, pleasantly confused today 06/17: intermittently confused, working with PT, repeat CSF cx pending 06/18: intermittent complaints of headaches yesterday, currently denies HAs, moves all four extremities, reported no allergic type rx following administration of intraventric ampho 06/19: reported SCHULTZ following ampho b adminstration that resolves, no changed in mental status or neuro checks 06/20: pleasantly confused, neuro checks stable overnight. 06/23: sitting up in chair, stably confused. 06/24: repeat CSF fungal stain neg, cultures pending 06/25: about to sit up in chair for breakfast, only transferring short distance from bed to chair and he is reported to still be quite ataxic. Final fungal smear reports no fungal elements seen. 06/26: denies headaches, feels his head is clearer (Anusha Hastings) Labs, Micro, & Vital Signs Results Date Time Temp Pulse Resp B/P Pulse Ox O2 Delivery O2 Flow Rate FiO2 06/26/16 14:14 16 06/26/16 14:00 78 06/26/16 13:45 25 06/26/16 12:00 66 06/26/16 12:00 97.6 66 19 128/75 100 06/26/16 10:00 66 06/26/16 08:00 98.0 68 14 128/69 100 06/26/16 08:00 62 06/26/16 04:00 98.6 66 16 103/63 100 06/26/16 00:00 97.3 62 12 107/63 100 06/25/16 20:00 98.4 82 17 132/74 100 06/25/16 18:00 80 06/26/16 06:59 Intake Total 3043 ml Output Total 1840 ml Balance 1203 ml Constitutional Vital Signs Date Time Temp Pulse Resp B/P Pulse Ox O2 Delivery O2 Flow Rate FiO2 06/26/16 14:14 16 06/26/16 14:00 78 06/26/16 13:45 25 06/26/16 12:00 66 06/26/16 12:00 97.6 66 19 128/75 100 06/26/16 10:00 66 06/26/16 08:00 98.0 68 14 128/69 100 06/26/16 08:00 62 06/26/16 04:00 98.6 66 16 103/63 100 06/26/16 00:00 97.3 62 12 107/63 100 06/25/16 20:00 98.4 82 17 132/74 100 06/25/16 18:00 80 06/26/16 06:59 Intake Total 3043 ml Output Total 1840 ml Balance 1203 ml (Anusha Hastings) Review of Systems/Exam Exam No changes to his examination He is alert. Speech is fluent and converses, but confused. follows few simple commands. surgical healing well, no evidence of drainage noted Ventriculostomy drain open at 5 cm H20, draining well. CSF is appears clearer in color but with slight cloudiness. EVD site is intact, and clean CN: pupils 3 mm equal, gross EOMs intact. facial appears symmetric at rest Motor: moves grossly all four extremities symmetrically to command, on upper extremity restraints and hand mittens Extremities: no swelling Skin: no cyanosis or erythema (Anusha Hastings) Medications Current Medications Current Medications Medications (Trade) Dose Ordered Sig/Paula Route PRN Reason Start Time Stop Time Status Last Admin Dose Admin Naloxone HCl (Narcan Inj) 0.4 mg UNSCH PRN IV SEE LABEL COMMENTS 05/29/16 15:00 Acetaminophen/ Butalbital/ Caffeine (Fioricet 325-50-40) 1 tab Q6H PRN PO PAIN GREATER THAN 5 or headach 05/29/16 15:00 06/26/16 12:45 Heparin Sodium (Porcine) (Heparin Inj) 5,000 units Q12HR SQ 05/29/16 21:00 06/26/16 08:17 Levetriacetam (Keppra) 500 mg Q12HR PO 05/29/16 21:00 06/26/16 08:16 Morphine Sulfate (Morphine Inj) 2 mg Q3H PRN IV PUSH BREAKTHROUGH PAIN 06/02/16 10:30 06/26/16 14:09 Diphenhydramine HCl (Benadryl 2% Cream) 1 applic TID PRN TOPICAL ITCHING 06/02/16 11:15 IV Flush (NS Flush) 2 ml UNSCH PRN IV FLUSH FLUSH AFTER USING IV ACCESS 06/03/16 09:45 IV Flush (NS Flush) 2 ml BID IV FLUSH 06/03/16 21:00 06/26/16 08:16 Acetaminophen (Tylenol) 650 mg Q6H PRN PO FEVER >100F 06/03/16 09:45 06/22/16 09:11 Ondansetron HCl (Zofran Inj) 4 mg Q6H PRN IV NAUSEA OR VOMITING 06/03/16 09:45 06/26/16 13:02 Docusate Sodium (Colace) 100 mg BID PO 06/03/16 21:00 06/26/16 08:16 Sennosides (Senokot) 17.2 mg BID PO 06/03/16 09:45 06/26/16 08:16 Miscellaneous Information 1 Q361D XX 06/03/16 09:45 Chlorhexidine Gluconate (Chlorhexidine 2% Cloth) 3 pack Taper DAILY@04 TOP 06/04/16 04:00 05/31/17 03:59 06/25/16 04:00 Chlorhexidine Gluconate 3 pack 3 pack UNSCH PRN TOP HYGIENIC CARE 06/03/16 09:45 Thiamine HCl/ Sodium Chloride (Thiamine Inj/NS Inj) 101 ml @ 101 mls/hr DAILY IV 06/04/16 09:00 06/26/16 08:17 Polyethylene Glycol 17 gm 17 gm DAILY PO 06/04/16 09:00 06/26/16 08:16 Sodium Chloride (NS 1000 ml Inj) 1,000 ml @ 100 mls/hr Q10H IV 06/03/16 21:16 Hold 06/05/16 22:23 Famotidine (Pepcid) 20 mg BID NG 06/04/16 09:00 06/26/16 08:16 Metoprolol Tartrate (Lopressor) 12.5 mg Q12HR PO 06/05/16 21:00 06/26/16 08:17 Quetiapine Fumarate (SEROquel) 25 mg BID PO 06/06/16 09:00 06/26/16 09:00 Loperamide HCl (Imodium Liq) 2 mg UNSCH PRN TUBE DIARRHEA 06/06/16 16:15 06/23/16 09:14 Diphenhydramine HCl (Benadryl Inj) 25 mg Q24H PRN IV PRE-MED PRIOR TO AMPHOTERCIN B 06/11/16 17:00 06/22/16 07:28 Hydrocortisone Sodium Succinate 25 mg 25 mg Q24H PRN IV PRE-MED PRIOR TO AMPHOTERCIN B 06/11/16 17:00 06/22/16 07:28 Potassium Chloride 100 ml @ 50 mls/hr Q2H PRN IV For Potassium 2.8 - 3.2 mEq/L 06/12/16 07:15 06/23/16 09:43 Potassium Chloride (KCl 20 Meq Premix Inj) 100 ml @ 50 mls/hr Q2H PRN IV For Potassium 2.8 - 3.2 mEq/L 06/12/16 07:15 06/26/16 11:32 Potassium Chloride 40 meq 40 meq UNSCH PRN PO/TUBE For Potassium 3.3 - 3.5 mEq/L 06/12/16 07:15 06/20/16 07:58 Potassium Chloride 100 ml @ 25 mls/hr UNSCH PRN IV For Potassium 3.3 - 3.5 mEq/L 06/12/16 07:15 Potassium Chloride 100 ml @ 50 mls/hr Q2H PRN IV For Potassium 3.3 - 3.5 mEq/L 06/12/16 07:15 06/26/16 09:24 Magnesium Sulfate/ Sodium Chloride (Magnesium Sulfate Inj/NS Inj) 100 ml @ 50 mls/hr UNSCH PRN IV For Magnesium 0.9 - 1.1 mg/dL 06/12/16 07:15 Magnesium Oxide 800 mg 800 mg UNSCH PRN PO For Magnesium 1.2 - 1.6 mg/dL 06/12/16 07:15 Magnesium Sulfate/ Sodium Chloride (Magnesium Sulfate Inj/NS Inj) 100 ml @ 50 mls/hr UNSCH PRN IV For Magnesium 1.2 - 1.6 mg/dL 06/12/16 07:15 Potassium Phosphate 2000 mg 2,000 mg Q4H PRN PO For Phosphorus < 2.5 mg/dL 06/12/16 07:15 Sodium Phosphate/ Sodium Chloride (Sodium Phosphate Inj/NS 250 ml Inj) 250 ml @ 42 mls/hr UNSCH PRN IV For Phosphorus < 2.5 mg/dL 06/12/16 07:15 Potassium Chloride (KCl 40 Meq/30 ml Liq) 40 meq UNSCH PRN PO/TUBE SEE LABEL COMMENTS 06/12/16 07:15 Potassium Phosphate 2000 mg 2,000 mg UNSCH PRN PO/TUBE SEE LABEL COMMENTS 06/12/16 07:15 Potassium Phosphate/Sodium Chloride (Potassium Phosphate Inj/NS 250 ml Inj) 260 ml @ 42 mls/hr UNSCH PRN IV SEE LABEL COMMENTS 06/12/16 07:15 Amphotericin B (Amphotericin B Conv Inj) 1 mg Q24H OTHER 06/13/16 09:00 06/26/16 12:40 Water (Free Water) 200 ml Q6HR G-TUBE 06/16/16 12:00 06/26/16 11:48 IV Flush (NS Flush) See Protocol DAILY IVF 06/23/16 09:00 06/26/16 09:00 IV Flush (NS Flush) See Protocol UNSCH PRN IVF SEE PROTOCOL TABLE 06/22/16 12:30 IV Flush See Protocol UNSCH PRN IVF SEE PROTOCOL TABLE 06/22/16 12:30 Fluconazole/ Sodium Chloride 400 ml @ 200 mls/hr Q24H IV 06/22/16 14:00 06/26/16 14:08 Fluconazole/ Sodium Chloride (Diflucan 400 Mg Premix Bag) 400 ml @ 200 mls/hr Q24H IV 06/23/16 16:00 06/26/16 15:44 (Anusha Hastings) Medical Decision Making MDM Remarks 55 y/o male s/p posterior fossa craniectomy for evacuation of cerebellar bleed due to AVM with embolization at [facility] s/p ventriculostomy placement for CSF leak, resolved CSF leak ventriculitis with growth of Hermila, replacement of ventriculostomy drain , started intraventricular Ampho B tx 06/12/16 (Anusha Hastings) Plan Plan Remarks cont daily intraventricular administration ampho b per ID raise EVD to 10 cm H20 cont daily therapy repeat CSF cultures 06/23 pending Dose 14 Intraventricular Ampho B given today (Anusha Hastings) Attending Statement The exam, history, and the medical decision-making described in the above note were completed with the assistance of the mid-level provider. I reviewed and agree with the findings presented. I attest that I had a [id number] encounter with the patient on the same day, and personally performed and documented my assessment and findings in the medical record. (John Flowers MD) Anusha Hastings Jun 26, 2016 16:24 John Flowers MD Jun 27, 2016 13:11
[2016-06-27] VITALS (12 sets, daily range): BP systolic 102–147; BP diastolic 62–79; PULSE 62–99; RESP 12–16; TEMP 97.7–99.3; O2SAT 100
[2016-06-27] MEDS: CHLORHEXIDINE GLUCONATE 2 % 1 PACK (2 CLOTHS) TOP SCH (04:00)
[2016-06-27 05:17] LABS: BASOPHIL # 0.1 TH/MM3 (0-0.2); EOSINOPHIL # 0.3 TH/MM3 (0-0.4); HEMATOCRIT 28.6 % (39.0-51.0); HEMO FLAGS DIFF FINAL; LYMPH % 18.6 % (9.0-44.0); LYMPHOCYTE # 1.4 TH/MM3 (1.0-4.8); MEAN CELL VOLUME 89.4 FL (80.0-100.0); MEAN CORPUSCULAR HGB CONC 33.5 % (32.0-36.0); MONO % 9.8 % (0.0-8.0); NEUT % 66.6 % (16.0-70.0); PLATELET COUNT 309 TH/MM3 (150-450); RED CELL DISTRIBUTION WIDTH 13.7 % (11.6-17.2); WHITE BLOOD COUNT 7.5 TH/MM3 (4.0-11.0)
[2016-06-27 05:43] LABS: ALKALINE PHOSPHATASE 83 U/L (45-117); ALT (GPT) 47 U/L (12-78); ANION GAP 7 MEQ/L (5-15); AST (GOT) 11 U/L (15-37); BICARBONATE 31.2 MEQ/L (21.0-32.0); BLOOD UREA NITROGEN 21 MG/DL (7-18); CHLORIDE 102 MEQ/L (98-107); GLOMERULAR FILTRATION RATE 86 ML/MIN (>89); MAGNESIUM 2.1 MG/DL (1.5-2.5); POTASSIUM 4.2 MEQ/L (3.5-5.1); SODIUM (NA) 140 MEQ/L (136-145); TOTAL BILIRUBIN ADULT LESS THAN 0.1 MG/DL (0.2-1.0)
[2016-06-27] MEDS: FREE WATER G-TUBE SCH ×4 (06:00→17:55)
[2016-06-27] MEDS: levETIRAcetam 500 MG TAB PO SCH ×2 (08:19→20:44)
[2016-06-27] MEDS: HEPARIN SODIUM - SQ 10,000 UNITS/ML VIAL SQ SCH ×2 (08:19→20:45)
[2016-06-27] MEDS: SODIUM CHLORIDE 0.9% FLUSH 5 ML FLUSH IV FLUSH SCH ×2 (08:19→20:45)
[2016-06-27] MEDS: THIAMINE INJ 100 MG in SODIUM CHLORIDE 0.9% INJ 100 ML IV SCH (08:19)
[2016-06-27] MEDS: POLYETHYLENE GLYCOL 17 GM PKG PO SCH (08:19)
[2016-06-27] MEDS: DOCUSATE SODIUM 100 MG CAP PO SCH ×2 (08:20→20:44)
[2016-06-27] MEDS: SENNOSIDES 8.6 MG TAB PO SCH ×2 (08:20→20:44)
[2016-06-27] MEDS: METOPROLOL TARTRATE 25 MG TAB PO SCH ×2 (08:20→20:44)
[2016-06-27] MEDS: FAMOTIDINE 20 MG TAB NG SCH ×2 (08:20→20:44)
[2016-06-27] MEDS: QUEtiapine FUMARATE 25 MG TAB PO SCH ×2 (08:20→20:44)
[2016-06-27] MEDS: AMPHOTERICIN B 50 MG OTHER SCH (08:45)
[2016-06-27] MEDS: ACETAMIN 325 MG/BUTALBITAL 50 MG/CAFFEINE 40 MG TAB PO PRN ×2 (08:46→14:34)
--- NOTE | 2016-06-27 09:13 | HHI.NSPN ---
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 The patient underwent placement of right frontal external ventricular drain for acute hydrocephalus and was transferred to [facility] for further treatment of the AVM by embolization followed by suboccipital craniotomy for hematoma evacuation, and AVM resection at [facility] . Postoperatively, he was slow to wake up, his EVD was Clamped and removed at [facility] and his mental status was improving. He had UTI and agitation. He was started on Rocephin and Seroquel. The patient was being transferred back to [facility] due to confusion and CSF leak. 06/04: s/p placement of ventriculostomy drain. no further leaking noted from posterior fossa wound, there has been scab formation also. 06/05: no wound leak seen 06/06: appears more awake today, wound dry, no evidence of CSF leaking overnight 06/09: wound dry, sitting up in chair eating breakfast 06/10: follow up CT Brain reviewed 06/11: prelim CSF testing shows elevated WBCs, proteins with low glucose, 06/12: CSF showing fungal growth, intraventricular ampho b ordered 06/13: EVD draining, no significant changes to neuro checks overnight 06/16: neuro checks stable overnight, alert, pleasantly confused today 06/17: intermittently confused, working with PT, repeat CSF cx pending 06/18: intermittent complaints of headaches yesterday, currently denies HAs, moves all four extremities, reported no allergic type rx following administration of intraventric ampho 06/19: reported SCHULTZ following ampho b adminstration that resolves, no changed in mental status or neuro checks 06/20: pleasantly confused, neuro checks stable overnight. 06/23: sitting up in chair, stably confused. 06/24: repeat CSF fungal stain neg, cultures pending 06/25: about to sit up in chair for breakfast, only transferring short distance from bed to chair and he is reported to still be quite ataxic. Final fungal smear reports no fungal elements seen. 06/26: denies headaches, feels his head is clearer 06/27: room moved to across nursing station, requesting milkshake for breakfast. (Anusha Hastings) Labs, Micro, & Vital Signs Results Date Time Temp Pulse Resp B/P Pulse Ox O2 Delivery O2 Flow Rate FiO2 06/27/16 06:00 64 06/27/16 04:00 98.2 64 15 104/62 100 06/27/16 04:00 64 06/27/16 02:00 62 06/27/16 00:00 98.5 63 12 102/63 100 06/27/16 00:00 63 06/26/16 22:00 76 06/26/16 20:00 74 06/26/16 20:00 98.5 74 14 137/84 100 06/26/16 18:00 71 06/26/16 17:45 16 06/26/16 16:00 74 06/26/16 16:00 98.4 74 21 175/93 100 06/26/16 14:00 78 06/26/16 13:45 25 06/26/16 12:00 66 06/26/16 12:00 97.6 66 19 128/75 100 06/26/16 10:00 66 06/27/16 07:00 Intake Total 2314 ml Output Total 1506 ml Balance 808 ml Constitutional Vital Signs Date Time Temp Pulse Resp B/P Pulse Ox O2 Delivery O2 Flow Rate FiO2 06/27/16 06:00 64 06/27/16 04:00 98.2 64 15 104/62 100 06/27/16 04:00 64 06/27/16 02:00 62 06/27/16 00:00 98.5 63 12 102/63 100 06/27/16 00:00 63 06/26/16 22:00 76 06/26/16 20:00 74 06/26/16 20:00 98.5 74 14 137/84 100 06/26/16 18:00 71 06/26/16 17:45 16 06/26/16 16:00 74 06/26/16 16:00 98.4 74 21 175/93 100 06/26/16 14:00 78 06/26/16 13:45 25 06/26/16 12:00 66 06/26/16 12:00 97.6 66 19 128/75 100 06/26/16 10:00 66 06/27/16 07:00 Intake Total 2314 ml Output Total 1506 ml Balance 808 ml (Anusha Hastings) Review of Systems/Exam Exam No changes to his examination He is alert. Speech is fluent and converses, but confused. follows few simple commands. surgical healing well, no evidence of drainage noted Ventriculostomy drain open at 5 cm H20, draining well. CSF is appears clearer in color but with slight cloudiness. EVD site is intact, and clean CN: pupils 3 mm equal, gross EOMs intact. facial appears symmetric at rest Motor: moves grossly all four extremities symmetrically to command, on upper extremity restraints and hand mittens Extremities: no swelling Skin: no cyanosis or erythema (Anusha Hastings) Medications Current Medications Current Medications Medications (Trade) Dose Ordered Sig/Paula Route PRN Reason Start Time Stop Time Status Last Admin Dose Admin Naloxone HCl (Narcan Inj) 0.4 mg UNSCH PRN IV SEE LABEL COMMENTS 05/29/16 15:00 Acetaminophen/ Butalbital/ Caffeine (Fioricet 325-50-40) 1 tab Q6H PRN PO PAIN GREATER THAN 5 or headach 05/29/16 15:00 06/27/16 08:46 Heparin Sodium (Porcine) (Heparin Inj) 5,000 units Q12HR SQ 05/29/16 21:00 06/27/16 08:19 Levetriacetam (Keppra) 500 mg Q12HR PO 05/29/16 21:00 06/27/16 08:19 Morphine Sulfate (Morphine Inj) 2 mg Q3H PRN IV PUSH BREAKTHROUGH PAIN 06/02/16 10:30 06/26/16 17:40 Diphenhydramine HCl (Benadryl 2% Cream) 1 applic TID PRN TOPICAL ITCHING 06/02/16 11:15 IV Flush (NS Flush) 2 ml UNSCH PRN IV FLUSH FLUSH AFTER USING IV ACCESS 06/03/16 09:45 IV Flush (NS Flush) 2 ml BID IV FLUSH 06/03/16 21:00 06/27/16 08:19 Acetaminophen (Tylenol) 650 mg Q6H PRN PO FEVER >100F 06/03/16 09:45 06/22/16 09:11 Ondansetron HCl (Zofran Inj) 4 mg Q6H PRN IV NAUSEA OR VOMITING 06/03/16 09:45 06/26/16 13:02 Docusate Sodium (Colace) 100 mg BID PO 06/03/16 21:00 06/27/16 08:20 Sennosides (Senokot) 17.2 mg BID PO 06/03/16 09:45 06/27/16 08:20 Miscellaneous Information 1 Q361D XX 06/03/16 09:45 Chlorhexidine Gluconate (Chlorhexidine 2% Cloth) 3 pack Taper DAILY@04 TOP 06/04/16 04:00 05/31/17 03:59 06/25/16 04:00 Chlorhexidine Gluconate (Chlorhexidine 2% Cloth) 3 pack UNSCH PRN TOP HYGIENIC CARE 06/03/16 09:45 Polyethylene Glycol 17 gm 17 gm DAILY PO 06/04/16 09:00 06/27/16 08:19 Sodium Chloride (NS 1000 ml Inj) 1,000 ml @ 100 mls/hr Q10H IV 06/03/16 21:16 Hold 06/05/16 22:23 Famotidine (Pepcid) 20 mg BID NG 06/04/16 09:00 06/27/16 08:20 Metoprolol Tartrate (Lopressor) 12.5 mg Q12HR PO 06/05/16 21:00 06/27/16 08:20 Quetiapine Fumarate (SEROquel) 25 mg BID PO 06/06/16 09:00 06/27/16 08:20 Loperamide HCl (Imodium Liq) 2 mg UNSCH PRN TUBE DIARRHEA 06/06/16 16:15 06/23/16 09:14 Diphenhydramine HCl (Benadryl Inj) 25 mg Q24H PRN IV PRE-MED PRIOR TO AMPHOTERCIN B 06/11/16 17:00 06/22/16 07:28 Hydrocortisone Sodium Succinate 25 mg 25 mg Q24H PRN IV PRE-MED PRIOR TO AMPHOTERCIN B 06/11/16 17:00 06/22/16 07:28 Potassium Chloride 100 ml @ 50 mls/hr Q2H PRN IV For Potassium 2.8 - 3.2 mEq/L 06/12/16 07:15 06/23/16 09:43 Potassium Chloride (KCl 20 Meq Premix Inj) 100 ml @ 50 mls/hr Q2H PRN IV For Potassium 2.8 - 3.2 mEq/L 06/12/16 07:15 06/26/16 11:32 Potassium Chloride 40 meq 40 meq UNSCH PRN PO/TUBE For Potassium 3.3 - 3.5 mEq/L 06/12/16 07:15 06/20/16 07:58 Potassium Chloride 100 ml @ 25 mls/hr UNSCH PRN IV For Potassium 3.3 - 3.5 mEq/L 06/12/16 07:15 Potassium Chloride 100 ml @ 50 mls/hr Q2H PRN IV For Potassium 3.3 - 3.5 mEq/L 06/12/16 07:15 06/26/16 09:24 Magnesium Sulfate/ Sodium Chloride (Magnesium Sulfate Inj/NS Inj) 100 ml @ 50 mls/hr UNSCH PRN IV For Magnesium 0.9 - 1.1 mg/dL 06/12/16 07:15 Magnesium Oxide 800 mg 800 mg UNSCH PRN PO For Magnesium 1.2 - 1.6 mg/dL 06/12/16 07:15 Magnesium Sulfate/ Sodium Chloride (Magnesium Sulfate Inj/NS Inj) 100 ml @ 50 mls/hr UNSCH PRN IV For Magnesium 1.2 - 1.6 mg/dL 06/12/16 07:15 Potassium Phosphate 2000 mg 2,000 mg Q4H PRN PO For Phosphorus < 2.5 mg/dL 06/12/16 07:15 Sodium Phosphate/ Sodium Chloride (Sodium Phosphate Inj/NS 250 ml Inj) 250 ml @ 42 mls/hr UNSCH PRN IV For Phosphorus < 2.5 mg/dL 06/12/16 07:15 Potassium Chloride (KCl 40 Meq/30 ml Liq) 40 meq UNSCH PRN PO/TUBE SEE LABEL COMMENTS 06/12/16 07:15 Potassium Phosphate 2000 mg 2,000 mg UNSCH PRN PO/TUBE SEE LABEL COMMENTS 06/12/16 07:15 Potassium Phosphate/Sodium Chloride (Potassium Phosphate Inj/NS 250 ml Inj) 260 ml @ 42 mls/hr UNSCH PRN IV SEE LABEL COMMENTS 06/12/16 07:15 Amphotericin B (Amphotericin B Conv Inj) 1 mg Q24H OTHER 06/13/16 09:00 06/27/16 08:45 Water (Free Water) 200 ml Q6HR G-TUBE 06/16/16 12:00 06/27/16 06:00 IV Flush (NS Flush) See Protocol DAILY IVF 06/23/16 09:00 06/27/16 08:25 IV Flush (NS Flush) See Protocol UNSCH PRN IVF SEE PROTOCOL TABLE 06/22/16 12:30 IV Flush See Protocol UNSCH PRN IVF SEE PROTOCOL TABLE 06/22/16 12:30 Fluconazole/ Sodium Chloride 400 ml @ 200 mls/hr Q24H IV 06/22/16 14:00 06/26/16 14:08 Fluconazole/ Sodium Chloride (Diflucan 400 Mg Premix Bag) 400 ml @ 200 mls/hr Q24H IV 06/23/16 16:00 06/26/16 15:44 Thiamine HCl (Vitamin B1) 100 mg DAILY PO 06/28/16 09:00 (Anusha Hastings) Medical Decision Making MDM Remarks 55 y/o male s/p posterior fossa craniectomy for evacuation of cerebellar bleed due to AVM with embolization at [facility] s/p ventriculostomy placement for CSF leak, resolved CSF leak ventriculitis with growth of Hermila, replacement of ventriculostomy drain , started intraventricular Ampho B tx 06/12/16 repeat CSF culture 06/23 shows no fungal elements, final cultures pending (Anusha Hastings) Plan Plan Remarks cont daily intraventricular administration ampho b per ID EVD 10 cm H20 cont daily therapy final CSF cultures 06/23 pending neuro stable Dose 15 Intraventricular Ampho B given today (Anusha Hastings) Attending Statement The exam, history, and the medical decision-making described in the above note were completed with the assistance of the mid-level provider. I reviewed and agree with the findings presented. I attest that I had a [id number] encounter with the patient on the same day, and personally performed and documented my assessment and findings in the medical record. (John Flowers MD) Anusha Hastings Jun 27, 2016 09:13 John Flowers MD Jul 02, 2016 22:27
[2016-06-27] MEDS: HYDROCORTISONE SOD SUCCINATE 100 MG VIAL IV PRN (09:47)
[2016-06-27] MEDS: diphenhydrAMINE HCL 50 MG/ML VIAL IV PRN (09:47)
--- NOTE | 2016-06-27 12:31 | HHI.CCPN ---
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 The patient underwent placement of right frontal external ventricular drain for acute hydrocephalus and was transferred to [facility] for further treatment of the AVM by embolization followed by suboccipital craniotomy for hematoma evacuation and AVM resection. Postoperatively, he was slow to wake up, his EVD was Clamped and removed and his mental status was improving. Other complications include the UTI and agitation. He was started on Rocephin and Seroquel. The patient is being transferred back to [facility] due to confusion and CSF leak. EVD was placed. He was found to have budding yeast, pseudohyphae in CSF and Enterococcus in blood. Objective Vital Signs Date Time Temp Pulse Resp B/P Pulse Ox O2 Delivery O2 Flow Rate FiO2 06/27/16 06:00 64 06/27/16 04:00 98.2 15 104/62 100 Intake and Output 06/26/16 06/26/16 06/26/16 07:59 15:59 23:59 Intake Total 750 ml 967 ml 889 ml Output Total 620 ml 606 ml 300 ml Balance 130 ml 361 ml 589 ml Result Diagram: 06/27/1643906/27/16439 Objective Remarks GENERAL: 55-year-old male, conversant. Confused, oriented only to person. SKIN: Warm and dry. No rashes. HEAD: Dry posterior wound, clean, healing well. New right ventriculostomy placed 06/12. EVD draining 70 ml clear CSF in 24 hours NECK: Supple. No obstruction. Airway widely patent. CARDIOVASCULAR: RRR. S1, S2. Without murmurs, or rubs. RESPIRATORY: Few mobile secretions, clear with cough. Air entry equal bilaterally GASTROINTESTINAL: Abdomen soft, non-tender, nondistended. Normal BS MUSCULOSKELETAL: Warm, well perfused. Neuro: Oriented to person. Pupils are equal bilaterally reactive. Moves all 4 extremities spontaneously. Conversant. follows commands. 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 - status post AVM embolization at [facility] followed by suboccipital craniotomy for hematoma evacuation and AVM resection - EVD wean per NSGY, still at 5 - Neurochecks per ICU routine - Keppra 500 mg twice a day for seizure prophylaxis - BP control CSF leak - EVD in place - wean per Neurosurgeon - may need a IN FILE OPERATOR shunt - awaiting ID clearance Hermila Ventriculitis - Amphotericin B - systemic and intraventricular - right ventriculostomy 06/03, replaced 06/12 - hermila isolated from CSF not susceptible to Ampho B; however will continue current regimen for now due to clinical improvement - management per ID - no growth on a sample 06/23 Enterococcus Bacteremia - Completed course of Vanc IV 06/24 Hypertension - Metoprol 12.5 milligrams Q12 hours - controlled - continue Telemetry Acute protein calorie malnutritionmild - Continue Jevity 1.5 goal 50 cc an hour - mechanical soft diet Hypernatremia - resolved - Na today 137 - decrease free water to 50cc every 6 - ICU electrolyte protocol Normocytic anemia - Does not meet transfusion triggers at this time. - Daily CBC Prophylaxis: GI Prophylaxis Pepcid 20 mg twice a day: DVT Prophylaxis - SCDs - Heparin subQ Level 2 Problem Qualifiers (1) UTI (urinary tract infection): (2) Cerebellar hemorrhage: Qualified Code: I61.4 - Nontraumatic intracerebral hemorrhage of cerebellum, unspecified laterality Chidi Trimble MD Jun 27, 2016 12:31
[2016-06-27] MEDS: FLUCONAZOLE 400 MG PREMIX BAG 400 ML IV SCH ×2 (13:24→16:24)
[2016-06-28] VITALS (9 sets, daily range): BP systolic 134–146; BP diastolic 74–88; PULSE 52–72; RESP 13–21; TEMP 97.8–98.9; O2SAT 98–100
[2016-06-28] MEDS: FREE WATER G-TUBE SCH ×2 (00:06→06:23)
[2016-06-28] MEDS: ACETAMIN 325 MG/BUTALBITAL 50 MG/CAFFEINE 40 MG TAB PO PRN ×3 (00:06→20:14)
[2016-06-28] MEDS: CHLORHEXIDINE GLUCONATE 2 % 1 PACK (2 CLOTHS) TOP SCH (01:46)
[2016-06-28 05:36] LABS: AUTOMATED NEUTROPHIL # 5.3 TH/MM3 (1.8-7.7); BASOPHIL # 0.1 TH/MM3 (0-0.2); BASOPHIL % 0.8 % (0.0-2.0); EOSINOPHIL # 0.2 TH/MM3 (0-0.4); EOSINOPHIL % 3.1 % (0.0-4.0); HEMATOCRIT 28.2 % (39.0-51.0); HEMO FLAGS DIFF FINAL; LYMPH % 17.2 % (9.0-44.0); LYMPHOCYTE # 1.3 TH/MM3 (1.0-4.8); MEAN CELL VOLUME 89.6 FL (80.0-100.0); MEAN CORPUSCULAR HEMOGLOBIN 30.5 PG (27.0-34.0); MONO % 6.7 % (0.0-8.0); NEUT % 72.2 % (16.0-70.0); PLATELET COUNT 262 TH/MM3 (150-450); RED BLOOD COUNT 3.15 MIL/MM3 (4.50-5.90); RED CELL DISTRIBUTION WIDTH 13.8 % (11.6-17.2); WHITE BLOOD COUNT 7.4 TH/MM3 (4.0-11.0)
[2016-06-28 06:05] LABS: ALKALINE PHOSPHATASE 90 U/L (45-117); ALT (GPT) 39 U/L (12-78); ANION GAP 7 MEQ/L (5-15); AST (GOT) 11 U/L (15-37); BICARBONATE 30.1 MEQ/L (21.0-32.0); BLOOD UREA NITROGEN 19 MG/DL (7-18); CHLORIDE 102 MEQ/L (98-107); GLOMERULAR FILTRATION RATE 105 ML/MIN (>89); MAGNESIUM 2.1 MG/DL (1.5-2.5); POTASSIUM 3.4 MEQ/L (3.5-5.1); SODIUM (NA) 139 MEQ/L (136-145); TOTAL BILIRUBIN ADULT 0.1 MG/DL (0.2-1.0)
[2016-06-28] MEDS: POTASSIUM CL 40 MEQ/30 ML LIQ UDC PO/TUBE PRN (06:33)
[2016-06-28] MEDS: THIAMINE HCL 100 MG TAB PO SCH (08:05)
[2016-06-28] MEDS: MORPHINE SULFATE 4 MG/ML INJ IV PUSH PRN ×3 (08:05→20:15)
[2016-06-28] MEDS: METOPROLOL TARTRATE 25 MG TAB PO SCH ×2 (08:05→20:15)
[2016-06-28] MEDS: QUEtiapine FUMARATE 25 MG TAB PO SCH ×2 (08:05→20:15)
[2016-06-28] MEDS: POLYETHYLENE GLYCOL 17 GM PKG PO SCH (08:05)
[2016-06-28] MEDS: SODIUM CHLORIDE 0.9% FLUSH 5 ML FLUSH IV FLUSH SCH ×2 (08:05→20:15)
[2016-06-28] MEDS: levETIRAcetam 500 MG TAB PO SCH ×2 (08:05→20:14)
[2016-06-28] MEDS: FAMOTIDINE 20 MG TAB NG SCH ×2 (08:05→20:15)
[2016-06-28] MEDS: DOCUSATE SODIUM 100 MG CAP PO SCH ×2 (08:05→20:15)
[2016-06-28] MEDS: HEPARIN SODIUM - SQ 10,000 UNITS/ML VIAL SQ SCH ×2 (08:06→20:15)
[2016-06-28] MEDS: SENNOSIDES 8.6 MG TAB PO SCH ×2 (08:06→20:15)
--- NOTE | 2016-06-28 08:19 | HHI.CCPN ---
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 The patient underwent placement of right frontal external ventricular drain for acute hydrocephalus and was transferred to [facility] for further treatment of the AVM by embolization followed by suboccipital craniotomy for hematoma evacuation and AVM resection. Postoperatively, he was slow to wake up, his EVD was Clamped and removed and his mental status was improving. Other complications include the UTI and agitation. He was started on Rocephin and Seroquel. The patient is being transferred back to [facility] due to confusion and CSF leak. EVD was placed. He was found to have budding yeast, pseudohyphae in CSF and Enterococcus in blood. Objective Vital Signs Date Time Temp Pulse Resp B/P Pulse Ox O2 Delivery O2 Flow Rate FiO2 06/28/16 06:00 70 06/28/16 04:00 98.4 13 142/83 100 Intake and Output 06/27/16 06/27/16 06/28/16 08:00 16:00 00:00 Intake Total 458 ml 739 ml 1249 ml Output Total 600 ml 550 ml 551 ml Balance -142 ml 189 ml 698 ml Result Diagram: 06/28/1642906/28/16 043 Objective Remarks GENERAL: 55-year-old male, conversant. Confused, oriented only to person. SKIN: Warm and dry. No rashes. HEAD: Dry posterior wound, clean, healing well. New right ventriculostomy placed 06/12. EVD draining 70 ml clear CSF in 24 hours NECK: Supple. No obstruction. Airway widely patent. CARDIOVASCULAR: RRR. S1, S2. Without murmurs, or rubs. RESPIRATORY: Few mobile secretions, clear with cough. Air entry equal bilaterally GASTROINTESTINAL: Abdomen soft, non-tender, nondistended. Normal BS MUSCULOSKELETAL: Warm, well perfused. Neuro: Oriented to person. Pupils are equal bilaterally reactive. Moves all 4 extremities spontaneously. Conversant. follows commands. 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 - status post AVM embolization at [facility] followed by suboccipital craniotomy for hematoma evacuation and AVM resection - EVD wean per NSGY, rased to 10 - Neurochecks per ICU routine - Keppra 500 mg twice a day for seizure prophylaxis - BP control CSF leak - EVD in place - wean per Neurosurgeon - currently at 10 - 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 need 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 - awaiting ID clearance Hermila Ventriculitis - Amphotericin B - systemic and intraventricular - right ventriculostomy 06/03, replaced 06/12 - hermila isolated from CSF not susceptible to Ampho B; however will continue current regimen for now due to clinical improvement - management per ID - no growth on a sample 06/23 Enterococcus Bacteremia - Completed course of Vanc IV 06/24 Hypertension - Metoprol 12.5 milligrams Q12 hours - controlled and no issues - continue Telemetry Acute protein calorie malnutritionmild - Continue Jevity 1.5 goal 50 cc an hour - mechanical soft diet - advance to regular Hypernatremia - resolved - Na today 139 - continue free water to 50cc every 6 - ICU electrolyte protocol Normocytic anemia - Does not meet transfusion triggers at this time. - Daily CBC Prophylaxis: GI Prophylaxis Pepcid 20 mg twice a day: DVT Prophylaxis - SCDs - Heparin subQ Level 2 Problem Qualifiers (1) UTI (urinary tract infection): (2) Cerebellar hemorrhage: Qualified Code: I61.4 - Nontraumatic intracerebral hemorrhage of cerebellum, unspecified laterality Chidi Trimble MD Jun 28, 2016 08:18
[2016-06-28] MEDS: HYDROCORTISONE SOD SUCCINATE 100 MG VIAL IV PRN (09:21)
[2016-06-28] MEDS: diphenhydrAMINE HCL 50 MG/ML VIAL IV PRN (09:21)
[2016-06-28] MEDS: AMPHOTERICIN B 50 MG OTHER SCH (09:22)
--- NOTE | 2016-06-28 09:52 | HHI.NSPN ---
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 The patient underwent placement of right frontal external ventricular drain for acute hydrocephalus and was transferred to [facility] for further treatment of the AVM by embolization followed by suboccipital craniotomy for hematoma evacuation, and AVM resection at [facility] . Postoperatively, he was slow to wake up, his EVD was Clamped and removed at [facility] and his mental status was improving. He had UTI and agitation. He was started on Rocephin and Seroquel. The patient was being transferred back to [facility] due to confusion and CSF leak. 06/04: s/p placement of ventriculostomy drain. no further leaking noted from posterior fossa wound, there has been scab formation also. 06/05: no wound leak seen 06/06: appears more awake today, wound dry, no evidence of CSF leaking overnight 06/09: wound dry, sitting up in chair eating breakfast 06/10: follow up CT Brain reviewed 06/11: prelim CSF testing shows elevated WBCs, proteins with low glucose, 06/12: CSF showing fungal growth, intraventricular ampho b ordered 06/13: EVD draining, no significant changes to neuro checks overnight 06/16: neuro checks stable overnight, alert, pleasantly confused today 06/17: intermittently confused, working with PT, repeat CSF cx pending 06/18: intermittent complaints of headaches yesterday, currently denies HAs, moves all four extremities, reported no allergic type rx following administration of intraventric ampho 06/19: reported SCHULTZ following ampho b adminstration that resolves, no changed in mental status or neuro checks 06/20: pleasantly confused, neuro checks stable overnight. 06/23: sitting up in chair, stably confused. 06/24: repeat CSF fungal stain neg, cultures pending 06/25: about to sit up in chair for breakfast, only transferring short distance from bed to chair and he is reported to still be quite ataxic. Final fungal smear reports no fungal elements seen. 06/26: denies headaches, feels his head is clearer 06/27: room moved to across nursing station, requesting milkshake for breakfast. 06/28: stable neuro checks, denies headaches, stably confused, follows simple commands (Anusha Hastings) Labs, Micro, & Vital Signs Results Date Time Temp Pulse Resp B/P Pulse Ox O2 Delivery O2 Flow Rate FiO2 06/28/16 09:05 21 06/28/16 08:38 100 06/28/16 08:10 18 06/28/16 08:00 98.4 71 18 146/83 100 06/28/16 08:00 71 06/28/16 06:00 70 06/28/16 04:00 58 06/28/16 04:00 98.4 58 13 142/83 100 06/28/16 02:00 52 06/28/16 00:00 62 06/28/16 00:00 98.0 62 21 143/74 98 06/27/16 22:00 62 06/27/16 20:00 98.2 72 16 124/71 100 06/27/16 20:00 71 06/27/16 18:00 78 06/27/16 16:00 77 06/27/16 16:00 99.3 77 16 124/77 100 06/27/16 14:00 88 06/27/16 12:00 97.7 76 14 147/79 100 06/27/16 12:00 76 06/27/16 10:00 67 06/28/16 07:00 Intake Total 2851 ml Output Total 2251 ml Balance 600 ml Constitutional Vital Signs Date Time Temp Pulse Resp B/P Pulse Ox O2 Delivery O2 Flow Rate FiO2 06/28/16 09:05 21 06/28/16 08:38 100 06/28/16 08:10 18 06/28/16 08:00 98.4 71 18 146/83 100 06/28/16 08:00 71 06/28/16 06:00 70 06/28/16 04:00 58 06/28/16 04:00 98.4 58 13 142/83 100 06/28/16 02:00 52 06/28/16 00:00 62 06/28/16 00:00 98.0 62 21 143/74 98 06/27/16 22:00 62 06/27/16 20:00 98.2 72 16 124/71 100 06/27/16 20:00 71 06/27/16 18:00 78 06/27/16 16:00 77 06/27/16 16:00 99.3 77 16 124/77 100 06/27/16 14:00 88 06/27/16 12:00 97.7 76 14 147/79 100 06/27/16 12:00 76 06/27/16 10:00 67 06/28/16 07:00 Intake Total 2851 ml Output Total 2251 ml Balance 600 ml (Anusha Hastings) Review of Systems/Exam Exam No changes to his examination He is alert. Speech is fluent and converses, but confused. follows few simple commands. surgical healing well, no evidence of drainage noted Ventriculostomy drain open at 5 cm H20, draining well. CSF is appears clearer in color but with slight cloudiness. EVD site is intact, and clean CN: pupils 3 mm equal, gross EOMs intact. facial appears symmetric at rest Motor: moves grossly all four extremities symmetrically to command, on upper extremity restraints and hand mittens Extremities: no swelling Skin: no cyanosis or erythema (Anusha Hastings) Medical Decision Making MDM Remarks 55 y/o male s/p posterior fossa craniectomy for evacuation of cerebellar bleed due to AVM with embolization at [facility] s/p ventriculostomy placement for CSF leak, resolved CSF leak ventriculitis with growth of Hermila, replacement of ventriculostomy drain , started intraventricular Ampho B tx 06/12/16, tolerating treatment well, stable neurological examination repeat CSF culture 06/23 shows no fungal elements, final cultures pending (Anusha Hastings) Plan Plan Remarks cont daily intraventricular administration ampho b per ID EVD 10 cm H20 cont daily therapy neuro stable Dose 16 Intraventricular Ampho B given today (Anusha Hastings) Attending Statement The exam, history, and the medical decision-making described in the above note were completed with the assistance of the mid-level provider. I reviewed and agree with the findings presented. I attest that I had a [id number] encounter with the patient on the same day, and personally performed and documented my assessment and findings in the medical record. (John Flowers MD) Anusha Hastings Jun 28, 2016 09:52 John Flowers MD Jul 02, 2016 22:20
[2016-06-28] MEDS: FREE WATER PEG SCH ×3 (11:59→22:55)
[2016-06-28] MEDS: FLUCONAZOLE 400 MG PREMIX BAG 400 ML IV SCH ×2 (13:52→16:33)
[2016-06-29] VITALS (14 sets, daily range): BP systolic 106–158; BP diastolic 67–86; PULSE 53–80; RESP 11–26; TEMP 97.6–100.4; O2SAT 98–100
[2016-06-29] MEDS: CHLORHEXIDINE GLUCONATE 2 % 1 PACK (2 CLOTHS) TOP SCH (03:22)
[2016-06-29 04:34] LABS: AUTOMATED NEUTROPHIL # 3.3 TH/MM3 (1.8-7.7); BASOPHIL # 0.1 TH/MM3 (0-0.2); BASOPHIL % 0.9 % (0.0-2.0); EOSINOPHIL # 0.2 TH/MM3 (0-0.4); HEMATOCRIT 29.7 % (39.0-51.0); HEMO FLAGS DIFF FINAL; LYMPH % 28.8 % (9.0-44.0); LYMPHOCYTE # 1.7 TH/MM3 (1.0-4.8); MEAN CELL VOLUME 89.5 FL (80.0-100.0); MEAN CORPUSCULAR HEMOGLOBIN 30.3 PG (27.0-34.0); MEAN CORPUSCULAR HGB CONC 33.9 % (32.0-36.0); MONO % 9.7 % (0.0-8.0); NEUT % 56.6 % (16.0-70.0); PLATELET COUNT 259 TH/MM3 (150-450); RED BLOOD COUNT 3.32 MIL/MM3 (4.50-5.90); WHITE BLOOD COUNT 5.8 TH/MM3 (4.0-11.0)
[2016-06-29 04:42] LABS: ALT (GPT) 36 U/L (12-78); ANION GAP 6 MEQ/L (5-15); AST (GOT) 12 U/L (15-37); BICARBONATE 31.8 MEQ/L (21.0-32.0); BLOOD UREA NITROGEN 18 MG/DL (7-18); CHLORIDE 104 MEQ/L (98-107); GLOMERULAR FILTRATION RATE 102 ML/MIN (>89); MAGNESIUM 2.1 MG/DL (1.5-2.5); POTASSIUM 3.8 MEQ/L (3.5-5.1); SODIUM (NA) 142 MEQ/L (136-145)
[2016-06-29 04:44] LABS: ALKALINE PHOSPHATASE 86 U/L (45-117); TOTAL BILIRUBIN ADULT 0.1 MG/DL (0.2-1.0)
[2016-06-29] MEDS: FREE WATER PEG SCH ×4 (06:00→21:05)
[2016-06-29] MEDS: DOCUSATE SODIUM 100 MG CAP PO SCH ×2 (07:41→19:36)
[2016-06-29] MEDS: SENNOSIDES 8.6 MG TAB PO SCH ×2 (08:35→19:35)
[2016-06-29] MEDS: POLYETHYLENE GLYCOL 17 GM PKG PO SCH (08:35)
[2016-06-29] MEDS: HEPARIN SODIUM - SQ 10,000 UNITS/ML VIAL SQ SCH ×2 (08:37→19:36)
[2016-06-29] MEDS: QUEtiapine FUMARATE 25 MG TAB PO SCH ×2 (08:37→19:36)
[2016-06-29] MEDS: FAMOTIDINE 20 MG TAB NG SCH ×2 (08:37→19:36)
[2016-06-29] MEDS: levETIRAcetam 500 MG TAB PO SCH ×2 (08:37→19:36)
[2016-06-29] MEDS: THIAMINE HCL 100 MG TAB PO SCH (08:37)
[2016-06-29] MEDS: SODIUM CHLORIDE 0.9% FLUSH 5 ML FLUSH IV FLUSH SCH ×2 (08:38→21:04)
--- NOTE | 2016-06-29 08:45 | HHI.CCPN ---
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 The patient underwent placement of right frontal external ventricular drain for acute hydrocephalus and was transferred to [facility] for further treatment of the AVM by embolization followed by suboccipital craniotomy for hematoma evacuation and AVM resection. Postoperatively, he was slow to wake up, his EVD was Clamped and removed and his mental status was improving. Other complications include the UTI and agitation. He was started on Rocephin and Seroquel. The patient is being transferred back to [facility] due to confusion and CSF leak. EVD was placed. He was found to have budding yeast, pseudohyphae in CSF and Enterococcus in blood. Objective Vital Signs Date Time Temp Pulse Resp B/P Pulse Ox O2 Delivery O2 Flow Rate FiO2 06/29/16 07:39 100 21 06/29/16 06:00 58 06/29/16 04:00 97.9 14 130/81 Intake and Output 06/28/16 06/28/16 06/29/16 08:00 16:00 00:00 Intake Total 863 ml 581 ml 989 ml Output Total 1150.0 ml 950.0 ml 350.0 ml Balance -287.0 ml -369.0 ml 639.0 ml Result Diagram: 06/29/1641906/29/16419 Objective Remarks GENERAL: 55-year-old male, conversant. Confused, oriented only to person. SKIN: Warm and dry. No rashes. HEAD: Dry posterior wound, clean, healing well. New right ventriculostomy placed 06/12. EVD draining 70 ml clear CSF in 24 hours NECK: Supple. No obstruction. Airway widely patent. CARDIOVASCULAR: RRR. S1, S2. Without murmurs, or rubs. RESPIRATORY: Few mobile secretions, clear with cough. Air entry equal bilaterally GASTROINTESTINAL: Abdomen soft, non-tender, nondistended. Normal BS MUSCULOSKELETAL: Warm, well perfused. Neuro: Oriented to person. Pupils are equal bilaterally reactive. Moves all 4 extremities spontaneously. Conversant. follows commands. 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 - status post AVM embolization at [facility] followed by suboccipital craniotomy for hematoma evacuation and AVM resection - EVD wean per NSGY, rased to 10 - Neurochecks per ICU routine - Keppra 500 mg twice a day for seizure prophylaxis - Strict BP control CSF leak - EVD in place - wean per Neurosurgeon - currently at 10 - 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 - awaiting ID clearance Hermila Ventriculitis - intraventricular Amphotericin B administration - systemic D/Gera - right ventriculostomy 06/03, replaced 06/12 - hermila isolated from CSF not susceptible to Ampho B; however will continue current regimen for now due to clinical improvement - sensitivity pending from Bryan - management per ID - no growth on a sample 06/23 - repeat CSF on Thursday06/30/2016 Enterococcus Bacteremia - Completed course of Vanc IV 06/24 Hypertension - Metoprol 12.5 milligrams Q12 hours - controlled and no issues - continue Telemetry Acute protein calorie malnutritionmild - Continue Jevity 1.5 goal 50 cc an hour - mechanical soft diet - advance to regular Hypernatremia - resolved - Na today 142 - continue free water to 50cc every 6 - ICU electrolyte protocol Normocytic anemia - Does not meet transfusion triggers at this time. - Daily CBC Prophylaxis: GI Prophylaxis Pepcid 20 mg twice a day: DVT Prophylaxis - SCDs - Heparin subQ Level 2 Problem Qualifiers (1) UTI (urinary tract infection): (2) Cerebellar hemorrhage: Qualified Code: I61.4 - Nontraumatic intracerebral hemorrhage of cerebellum, unspecified laterality Chidi Trimble MD Jun 29, 2016 08:45
[2016-06-29] MEDS: AMPHOTERICIN B 50 MG OTHER SCH (10:15)
[2016-06-29] MEDS: HYDROCORTISONE SOD SUCCINATE 100 MG VIAL IV PRN (10:16)
[2016-06-29] MEDS: diphenhydrAMINE HCL 50 MG/ML VIAL IV PRN (10:16)
--- NOTE | 2016-06-29 10:19 | HHI.NSPN ---
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 The patient underwent placement of right frontal external ventricular drain for acute hydrocephalus and was transferred to [facility] for further treatment of the AVM by embolization followed by suboccipital craniotomy for hematoma evacuation, and AVM resection at [facility] . Postoperatively, he was slow to wake up, his EVD was Clamped and removed at [facility] and his mental status was improving. He had UTI and agitation. He was started on Rocephin and Seroquel. The patient was being transferred back to [facility] due to confusion and CSF leak. 06/04: s/p placement of ventriculostomy drain. no further leaking noted from posterior fossa wound, there has been scab formation also. 06/05: no wound leak seen 06/06: appears more awake today, wound dry, no evidence of CSF leaking overnight 06/09: wound dry, sitting up in chair eating breakfast 06/10: follow up CT Brain reviewed 06/11: prelim CSF testing shows elevated WBCs, proteins with low glucose, 06/12: CSF showing fungal growth, intraventricular ampho b ordered 06/13: EVD draining, no significant changes to neuro checks overnight 06/16: neuro checks stable overnight, alert, pleasantly confused today 06/17: intermittently confused, working with PT, repeat CSF cx pending 06/18: intermittent complaints of headaches yesterday, currently denies HAs, moves all four extremities, reported no allergic type rx following administration of intraventric ampho 06/19: reported SCHULTZ following ampho b adminstration that resolves, no changed in mental status or neuro checks 06/20: pleasantly confused, neuro checks stable overnight. 06/23: sitting up in chair, stably confused. 06/24: repeat CSF fungal stain neg, cultures pending 06/25: about to sit up in chair for breakfast, only transferring short distance from bed to chair and he is reported to still be quite ataxic. Final fungal smear reports no fungal elements seen. 06/26: denies headaches, feels his head is clearer 06/27: room moved to across nursing station, requesting milkshake for breakfast. 06/28: stable neuro checks, denies headaches, stably confused, follows simple commands 06/29: doing well, unchanged overnight (Anusha Hastings) Labs, Micro, & Vital Signs Results Date Time Temp Pulse Resp B/P Pulse Ox O2 Delivery O2 Flow Rate FiO2 06/29/16 08:00 98.1 65 26 126/71 100 06/29/16 08:00 65 06/29/16 07:39 100 21 06/29/16 06:00 58 06/29/16 04:00 57 06/29/16 04:00 97.9 57 14 130/81 98 06/29/16 02:00 54 06/29/16 00:00 97.6 53 12 106/67 99 06/29/16 00:00 53 06/28/16 22:00 98.6 66 20 134/74 100 06/28/16 22:00 66 06/28/16 16:00 98.9 72 16 143/88 100 06/28/16 16:00 72 06/28/16 12:00 62 06/28/16 12:00 97.8 62 15 135/82 100 06/29/16 06:59 Intake Total 2097 ml Output Total 1825.0 ml Balance 272.0 ml Constitutional Vital Signs Date Time Temp Pulse Resp B/P Pulse Ox O2 Delivery O2 Flow Rate FiO2 06/29/16 08:00 98.1 65 26 126/71 100 06/29/16 08:00 65 06/29/16 07:39 100 21 06/29/16 06:00 58 06/29/16 04:00 57 06/29/16 04:00 97.9 57 14 130/81 98 06/29/16 02:00 54 06/29/16 00:00 97.6 53 12 106/67 99 06/29/16 00:00 53 06/28/16 22:00 98.6 66 20 134/74 100 06/28/16 22:00 66 06/28/16 16:00 98.9 72 16 143/88 100 06/28/16 16:00 72 06/28/16 12:00 62 06/28/16 12:00 97.8 62 15 135/82 100 06/29/16 06:59 Intake Total 2097 ml Output Total 1825.0 ml Balance 272.0 ml (Anusha Hastings) Review of Systems/Exam Exam No changes to his examination He is alert. Speech is fluent and converses, but confused. follows few simple commands. surgical healing well, no evidence of drainage noted Ventriculostomy drain open at 5 cm H20, draining well. CSF is appears clearer in color but with slight cloudiness. EVD site is intact, and clean CN: pupils 3 mm equal, gross EOMs intact. facial appears symmetric at rest Motor: moves grossly all four extremities symmetrically to command, on upper extremity restraints and hand mittens Extremities: no swelling Skin: no cyanosis or erythema (Anusha Hastings) Medications Current Medications Current Medications Medications (Trade) Dose Ordered Sig/Paula Route PRN Reason Start Time Stop Time Status Last Admin Dose Admin Naloxone HCl (Narcan Inj) 0.4 mg UNSCH PRN IV SEE LABEL COMMENTS 05/29/16 15:00 Acetaminophen/ Butalbital/ Caffeine (Fioricet 325-50-40) 1 tab Q6H PRN PO PAIN GREATER THAN 5 or headach 05/29/16 15:00 06/28/16 20:14 Heparin Sodium (Porcine) (Heparin Inj) 5,000 units Q12HR SQ 05/29/16 21:00 06/29/16 08:37 Levetriacetam (Keppra) 500 mg Q12HR PO 05/29/16 21:00 06/29/16 08:37 Morphine Sulfate (Morphine Inj) 2 mg Q3H PRN IV PUSH BREAKTHROUGH PAIN 06/02/16 10:30 06/28/16 20:15 Diphenhydramine HCl (Benadryl 2% Cream) 1 applic TID PRN TOPICAL ITCHING 06/02/16 11:15 IV Flush (NS Flush) 2 ml UNSCH PRN IV FLUSH FLUSH AFTER USING IV ACCESS 06/03/16 09:45 IV Flush (NS Flush) 2 ml BID IV FLUSH 06/03/16 21:00 12/25/16 08:38 Acetaminophen (Tylenol) 650 mg Q6H PRN PO FEVER >100F 06/03/16 09:45 06/22/16 09:11 Ondansetron HCl (Zofran Inj) 4 mg Q6H PRN IV NAUSEA OR VOMITING 06/03/16 09:45 06/26/16 13:02 Docusate Sodium (Colace) 100 mg BID PO 06/03/16 21:00 06/28/16 20:15 Sennosides (Senokot) 17.2 mg BID PO 06/03/16 09:45 06/28/16 20:15 Miscellaneous Information 1 Q361D XX 06/03/16 09:45 Chlorhexidine Gluconate (Chlorhexidine 2% Cloth) Taper DAILY@04 TOP 06/04/16 04:00 05/31/17 03:59 06/25/16 04:00 Chlorhexidine Gluconate (Chlorhexidine 2% Cloth) 3 pack UNSCH PRN TOP HYGIENIC CARE 06/03/16 09:45 Polyethylene Glycol 17 gm 17 gm DAILY PO 06/04/16 09:00 06/27/16 08:19 Sodium Chloride (NS 1000 ml Inj) 1,000 ml @ 100 mls/hr Q10H IV 06/03/16 21:16 Hold 06/05/16 22:23 Famotidine (Pepcid) 20 mg BID NG 06/04/16 09:00 06/29/16 08:37 Metoprolol Tartrate (Lopressor) 12.5 mg Q12HR PO 06/05/16 21:00 06/28/16 20:15 Quetiapine Fumarate (SEROquel) 25 mg BID PO 06/06/16 09:00 06/29/16 08:37 Loperamide HCl (Imodium Liq) 2 mg UNSCH PRN TUBE DIARRHEA 06/06/16 16:15 06/23/16 09:14 Diphenhydramine HCl (Benadryl Inj) 25 mg Q24H PRN IV PRE-MED PRIOR TO AMPHOTERCIN B 06/11/16 17:00 06/29/16 10:16 Hydrocortisone Sodium Succinate 25 mg 25 mg Q24H PRN IV PRE-MED PRIOR TO AMPHOTERCIN B 06/11/16 17:00 06/29/16 10:16 Potassium Chloride 100 ml @ 50 mls/hr Q2H PRN IV For Potassium 2.8 - 3.2 mEq/L 06/12/16 07:15 06/23/16 09:43 Potassium Chloride (KCl 20 Meq Premix Inj) 100 ml @ 50 mls/hr Q2H PRN IV For Potassium 2.8 - 3.2 mEq/L 06/12/16 07:15 06/26/16 11:32 Potassium Chloride 40 meq 40 meq UNSCH PRN PO/TUBE For Potassium 3.3 - 3.5 mEq/L 06/12/16 07:15 06/28/16 06:33 Potassium Chloride 100 ml @ 25 mls/hr UNSCH PRN IV For Potassium 3.3 - 3.5 mEq/L 06/12/16 07:15 Potassium Chloride 100 ml @ 50 mls/hr Q2H PRN IV For Potassium 3.3 - 3.5 mEq/L 06/12/16 07:15 06/26/16 09:24 Magnesium Sulfate/ Sodium Chloride (Magnesium Sulfate Inj/NS Inj) 100 ml @ 50 mls/hr UNSCH PRN IV For Magnesium 0.9 - 1.1 mg/dL 06/12/16 07:15 Magnesium Oxide 800 mg 800 mg UNSCH PRN PO For Magnesium 1.2 - 1.6 mg/dL 06/12/16 07:15 Magnesium Sulfate/ Sodium Chloride (Magnesium Sulfate Inj/NS Inj) 100 ml @ 50 mls/hr UNSCH PRN IV For Magnesium 1.2 - 1.6 mg/dL 06/12/16 07:15 Potassium Phosphate 2000 mg 2,000 mg Q4H PRN PO For Phosphorus < 2.5 mg/dL 06/12/16 07:15 Sodium Phosphate/ Sodium Chloride (Sodium Phosphate Inj/NS 250 ml Inj) 250 ml @ 42 mls/hr UNSCH PRN IV For Phosphorus < 2.5 mg/dL 06/12/16 07:15 Potassium Chloride (KCl 40 Meq/30 ml Liq) 40 meq UNSCH PRN PO/TUBE SEE LABEL COMMENTS 06/12/16 07:15 Potassium Phosphate 2000 mg 2,000 mg UNSCH PRN PO/TUBE SEE LABEL COMMENTS 06/12/16 07:15 Potassium Phosphate/Sodium Chloride (Potassium Phosphate Inj/NS 250 ml Inj) 260 ml @ 42 mls/hr UNSCH PRN IV SEE LABEL COMMENTS 06/12/16 07:15 Amphotericin B (Amphotericin B Conv Inj) 1 mg Q24H OTHER 06/13/16 09:00 06/29/16 10:15 IV Flush (NS Flush) See Protocol DAILY IVF 06/23/16 09:00 06/29/16 08:38 IV Flush (NS Flush) See Protocol UNSCH PRN IVF SEE PROTOCOL TABLE 06/22/16 12:30 IV Flush See Protocol UNSCH PRN IVF SEE PROTOCOL TABLE 06/22/16 12:30 Fluconazole/ Sodium Chloride 400 ml @ 200 mls/hr Q24H IV 06/22/16 14:00 06/28/16 13:52 Fluconazole/ Sodium Chloride (Diflucan 400 Mg Premix Bag) 400 ml @ 200 mls/hr Q24H IV 06/23/16 16:00 06/28/16 16:33 Thiamine HCl (Vitamin B1) 100 mg DAILY PO 06/28/16 09:00 06/29/16 08:37 Water (Free Water) 50 ml Q6HR PEG 06/28/16 12:00 06/29/16 06:00 (Anusha Hastings) Medical Decision Making MDM Remarks 55 y/o male s/p posterior fossa craniectomy for evacuation of cerebellar bleed due to AVM with embolization at [facility] s/p ventriculostomy placement for CSF leak, resolved CSF leak ventriculitis with growth of Hermila, replacement of ventriculostomy drain , started intraventricular Ampho B tx 06/12/16, tolerating treatment well, stable neurological examination repeat CSF culture 06/23 shows no fungal elements, final cultures pending (Anusha Hastings) Plan Plan Remarks cont daily intraventricular administration ampho b per ID EVD 10 cm H20 cont daily therapy neuro stable Dose 17 Intraventricular Ampho B given today (Anusha Hastings) Attending Statement The exam, history, and the medical decision-making described in the above note were completed with the assistance of the mid-level provider. I reviewed and agree with the findings presented. I attest that I had a [id number] encounter with the patient on the same day, and personally performed and documented my assessment and findings in the medical record. (John Flowers MD) Anusha Hastings Jun 29, 2016 10:19 John Flowers MD Jul 02, 2016 22:23
[2016-06-29] MEDS: METOPROLOL TARTRATE 25 MG TAB PO SCH ×2 (11:49→19:35)
[2016-06-29] MEDS: MORPHINE SULFATE 4 MG/ML INJ IV PUSH PRN ×2 (13:51→19:35)
[2016-06-29] MEDS: FLUCONAZOLE 400 MG PREMIX BAG 400 ML IV SCH ×2 (13:53→16:13)
[2016-06-29] MEDS: ACETAMIN 325 MG/BUTALBITAL 50 MG/CAFFEINE 40 MG TAB PO PRN (19:36)
[2016-06-30] VITALS (13 sets, daily range): BP systolic 90–157; BP diastolic 57–93; PULSE 59–73; RESP 12–29; TEMP 98.3–99.2; O2SAT 95–100
[2016-06-30] MEDS: MORPHINE SULFATE 4 MG/ML INJ IV PUSH PRN (01:39)
[2016-06-30] MEDS: ACETAMIN 325 MG/BUTALBITAL 50 MG/CAFFEINE 40 MG TAB PO PRN ×2 (01:40→20:15)
[2016-06-30] MEDS: CHLORHEXIDINE GLUCONATE 2 % 1 PACK (2 CLOTHS) TOP SCH (04:00)
[2016-06-30 04:06] LABS: AUTOMATED NEUTROPHIL # 4.5 TH/MM3 (1.8-7.7); BASOPHIL # 0.1 TH/MM3 (0-0.2); BASOPHIL % 0.7 % (0.0-2.0); EOSINOPHIL # 0.2 TH/MM3 (0-0.4); EOSINOPHIL % 2.6 % (0.0-4.0); HEMATOCRIT 29.5 % (39.0-51.0); HEMO FLAGS DIFF FINAL; LYMPH % 26.2 % (9.0-44.0); LYMPHOCYTE # 1.9 TH/MM3 (1.0-4.8); MEAN CELL VOLUME 89.8 FL (80.0-100.0); MEAN CORPUSCULAR HEMOGLOBIN 29.7 PG (27.0-34.0); MONO % 6.7 % (0.0-8.0); NEUT % 63.8 % (16.0-70.0); PLATELET COUNT 253 TH/MM3 (150-450); RED BLOOD COUNT 3.28 MIL/MM3 (4.50-5.90); WHITE BLOOD COUNT 7.1 TH/MM3 (4.0-11.0)
[2016-06-30 04:36] LABS: BLOOD UREA NITROGEN 20 MG/DL (7-18); GLOMERULAR FILTRATION RATE 99 ML/MIN (>89)
[2016-06-30 04:37] LABS: ALKALINE PHOSPHATASE 89 U/L (45-117); ALT (GPT) 33 U/L (12-78); ANION GAP 8 MEQ/L (5-15); AST (GOT) 10 U/L (15-37); BICARBONATE 32.3 MEQ/L (21.0-32.0); CHLORIDE 101 MEQ/L (98-107); POTASSIUM 3.7 MEQ/L (3.5-5.1); SODIUM (NA) 141 MEQ/L (136-145); TOTAL BILIRUBIN ADULT 0.1 MG/DL (0.2-1.0)
[2016-06-30] MEDS: FREE WATER PEG SCH ×4 (06:00→22:12)
[2016-06-30] MEDS: SODIUM CHLORIDE 0.9% FLUSH 5 ML FLUSH IV FLUSH SCH ×2 (08:53→20:15)
[2016-06-30] MEDS: FAMOTIDINE 20 MG TAB NG SCH ×2 (08:53→20:16)
[2016-06-30] MEDS: THIAMINE HCL 100 MG TAB PO SCH (08:53)
[2016-06-30] MEDS: levETIRAcetam 500 MG TAB PO SCH ×2 (08:53→20:16)
[2016-06-30] MEDS: DOCUSATE SODIUM 100 MG CAP PO SCH ×2 (08:54→20:16)
[2016-06-30] MEDS: POLYETHYLENE GLYCOL 17 GM PKG PO SCH ×2 (08:55→09:11)
[2016-06-30] MEDS: SENNOSIDES 8.6 MG TAB PO SCH ×3 (08:55→20:16)
[2016-06-30] MEDS: QUEtiapine FUMARATE 25 MG TAB PO SCH ×2 (08:57→20:16)
[2016-06-30] MEDS: HEPARIN SODIUM - SQ 10,000 UNITS/ML VIAL SQ SCH ×2 (09:00→20:15)
[2016-06-30] MEDS: METOPROLOL TARTRATE 25 MG TAB PO SCH ×2 (09:07→21:00)
[2016-06-30] MEDS: diphenhydrAMINE HCL 50 MG/ML VIAL IV PRN (09:54)
[2016-06-30] MEDS: HYDROCORTISONE SOD SUCCINATE 100 MG VIAL IV PRN (09:54)
--- NOTE | 2016-06-30 10:00 | HHI.NSPN ---
Subjective History 06/30/16 He is easily arousable, follows commands. He is oriented to the hospital but not to the name of the place or the date. He wound remains closed with a scab. His ICP is low as well as CSF drainage. The csf is slighly cloudy but has no blood. Vitals . Vital Signs Date Time Temp Pulse Resp B/P Pulse Ox O2 Delivery O2 Flow Rate FiO2 06/30/16 08:41 99 06/30/16 08:00 67 06/30/16 08:00 98.3 67 17 130/69 100 06/30/16 06:00 59 06/30/16 04:00 59 06/30/16 04:00 98.9 59 12 90/57 99 06/30/16 02:00 60 06/30/16 00:00 61 06/30/16 00:00 99.2 61 14 157/77 95 06/29/16 22:00 61 06/29/16 20:00 78 06/29/16 20:00 99.6 78 21 147/82 100 06/29/16 19:41 99 06/29/16 18:00 78 06/29/16 16:00 80 06/29/16 16:00 100.4 80 11 158/86 100 06/29/16 14:00 64 06/29/16 13:56 30 06/29/16 12:00 99.0 70 13 138/82 98 06/29/16 12:00 73 06/29/16 10:00 61 06/29/16 06/29/16 06/30/16 15:00 23:00 07:00 Intake Total 763 ml 627 ml 683 ml Output Total 751 ml 500 ml 525 ml Balance 12 ml 127 ml 158 ml Physical Exam Head Head: Incision (dry with a large scab at the top) Eyes Eyes: Pupils Equal Neuro Mental Status: Awake, Alert Pupils: Reactive Bilaterally Face: Symmetric Speech: Appropriate [place] Coma Scale Best Eye Openin - Spontaneous Best Verbal: 4 - Confused Best Motor: 6 - Obeys Total Glascow Coma Scale (GCS): 14 Sensation: Intact Cardiac Cardiac: Regular Rate & Rhythm Respiratory Respiratory: CTA Gastrointestinal Gastrointestinal: Soft Musculoskeletal Musculoskeletal: Moves all extrem with 5/5 strength (follows complex commands) Extremities Upper Extremities Deltoid Bicep Tricep HI W. Ext Right Left Lower Extremeties Ilio Quad Plantar Dorsi EHL Right Left Objective Drains Ventric @: 10 cm H20 Ventric Draining: Clear CSF Labs Laboratory Tests 06/30/16 04:00 Laboratory Tests Test 06/30/16 04:00 Sodium Level 141 MEQ/L Potassium Level 3.7 MEQ/L Chloride Level 101 MEQ/L Carbon Dioxide Level 32.3 MEQ/L Anion Gap 8 MEQ/L Blood Urea Nitrogen 20 MG/DL Creatinine 0.81 MG/DL Estimat Glomerular Filtration 99 ML/MIN Rate Random Glucose 115 MG/DL Calcium Level 8.6 MG/DL Phosphorus Level 4.4 MG/DL Magnesium Level 2.0 MG/DL Total Bilirubin 0.1 MG/DL Aspartate Amino Transf 10 U/L (AST/SGOT) Alanine Aminotransferase 33 U/L (ALT/SGPT) Alkaline Phosphatase 89 U/L Total Protein 5.9 GM/DL Albumin 2.6 GM/DL Assessment & Plan Diagnosis: (1) Hermila Ventriculitis Plan: 1mg of ampho B was injected this am, 10 cc of CSF withdrawn before the injection and sent for culture. (2) Encephalopathy, traumatic Plan: Complicated by ventriculitis. Critical Care Time (minutes): Moe Lee Jun 30, 2016 10:00
--- NOTE | 2016-06-30 12:00 | HHI.CCPN ---
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 The patient underwent placement of right frontal external ventricular drain for acute hydrocephalus and was transferred to [facility] for further treatment of the AVM by embolization followed by suboccipital craniotomy for hematoma evacuation and AVM resection. Postoperatively, he was slow to wake up, his EVD was Clamped and removed and his mental status was improving. Other complications include the UTI and agitation. He was started on Rocephin and Seroquel. The patient is being transferred back to [facility] due to confusion and CSF leak. EVD was placed. He was found to have budding yeast, pseudohyphae in CSF and Enterococcus in blood. Subjective 06/30: Currently resting in bed in no acute distress with mittens and vest restraint. Afebrile. Tolerating diet. No bowel movement past 24 hours. Objective Vital Signs Date Time Temp Pulse Resp B/P Pulse Ox O2 Delivery O2 Flow Rate FiO2 06/30/16 10:00 59 06/30/16 08:41 99 06/30/16 08:00 98.3 17 130/69 06/29/16 07:39 21 Intake and Output 06/29/16 06/29/16 06/30/16 08:00 16:00 00:00 Intake Total 527 ml 763 ml 627 ml Output Total 525 ml 751 ml 500 ml Balance 2 ml 12 ml 127 ml Result Diagram: 06/30/16 0400 06/30/16 0400 Other Results Microbiology Date/Time Procedure Status Source Growth 06/30/16 09:30 Gram Stain - Final Resulted Cerebral Spinal Fluid Shunt Fluid 06/30/16 09:30 CSF Culture Resulted Cerebral Spinal Fluid Shunt Fluid Pending 06/30/16 09:30 Fungal Smear Received Cerebral Spinal Fluid Shunt Fluid Pending 06/30/16 09:30 Fungal Culture Received Cerebral Spinal Fluid Shunt Fluid Pending Imaging Last Impressions Chest X-Ray 06/22/16 0000 Signed Impressions: Service Date/Time: Wednesday, June 22, 2016 12:54 - CONCLUSION: No acute cardiopulmonary disease identified. Tommy Ramirez MD ADDENDUM: There is a right arm PICC appropriately positioned, tip at the atriocaval junction. Brian Hu MD Head CT 06/10/16 0600 Signed Impressions: Service Date/Time: Friday, June 10, 2016 05:01 - CONCLUSION: 1. 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 Locules of air within the fluid are decreasing since June 08. Right frontal ventriculostomy tube remains present with stable ventricular size. No hydrocephalus. Kirk Cortes MD Objective Remarks GENERAL: 55-year-old male, critically ill currently resting in bed when to do personally SKIN: Warm and dry. No rash. HEAD: Dry posterior wound, clean, healing well. New right ventriculostomy placed 06/12. EVD draining 1 ml clear CSF in 24 hours at -10 cm H2O NECK: Supple. No thyromegaly lymphadenopathy or carotid bruits. CARDIOVASCULAR: RRR. S1, S2. Without murmurs or clicks, gallops or rubs. RESPIRATORY: Few mobile secretions, clear with cough. Air entry equal bilaterally GASTROINTESTINAL: Abdomen soft, non-tender, nondistended. Normoactive BS MUSCULOSKELETAL: Warm, well perfused. Neuro: Oriented to person. Pupils are equal bilaterally reactive. Moves all 4 extremities spontaneously. Conversant. follows commands. A/P Problem List: (1) Hermila Ventriculitis Status: Acute (2) AVM (arteriovenous malformation) brain ICD Code: Q28.2 Status: Acute (3) Encephalopathy, traumatic ICD Code: F07.81 Status: Acute (4) UTI (urinary tract infection) ICD Code: N39.0 Status: Acute (5) Agitation ICD Code: R45.1 Status: Acute (6) Cerebellar hemorrhage ICD Code: I61.4 Status: Acute Assessment and Plan Neuro/Psych 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 - status post AVM embolization at [facility] followed by suboccipital craniotomy for hematoma evacuation and AVM resection - EVD wean per NSGY, rased to 10 - Neurochecks per ICU routine - Keppra 500 mg twice a day for seizure prophylaxis - Strict BP control CSF leak - EVD in place - wean per Neurosurgeon - currently at 10 cm H2O - may need a TABLE FILLER shunt - awaiting ID clearance Continue Seroquel 25 mg twice a day CVS Hypertension - Metoprol 12.5 milligrams Q12 hours - controlled and no issues - continue Telemetry RESP: Currently on room air. GI: Acute protein calorie malnutritionmild - Continue Jevity 1.5 goal 50 cc an hour - mechanical soft diet - advance to regular Colace/as needed Senokot for bowel regimen Pepcid for GI prophylaxis : Condom catheter in place. HEME: Normocytic anemia - Does not meet transfusion triggers at this time. - Daily CBC ID: Hermila Ventriculitis - intraventricular Amphotericin B administration. Last dose today - systemic D/Gera - right ventriculostomy 06/03, replaced 06/12 - sensitivity pending from [place] - management per ID - no growth on a sample 06/23 - repeat CSF on Thursday06/30/2016 Enterococcus Bacteremia - Completed course of Vanc IV 06/24 Pertinent cultures CSF 06/10 and 06/12 - Hermila Renal: Monitor urine output. Creatinine within normal limits FEN Hypernatremia - resolved - Na today 142 - continue free water to 50cc every 6 - ICU electrolyte protocol Prophylaxis: GI Prophylaxis Pepcid 20 mg twice a day: DVT Prophylaxis - SCDs - Heparin subQ Level 2 Problem Qualifiers (1) UTI (urinary tract infection): (2) Cerebellar hemorrhage: Qualified Code: I61.4 - Nontraumatic intracerebral hemorrhage of cerebellum, unspecified laterality Darrick Dasilva MD Jun 30, 2016 12:00
[2016-06-30] MEDS: FLUCONAZOLE 400 MG PREMIX BAG 400 ML IV SCH ×2 (13:30→15:01)
--- NOTE | 2016-06-30 17:28 | HHI.IDPN ---
Subjective Subjective Remarks is a 55 y/o CM with AVM s/p coiling. ID following for Candidas ventriculitis Overnight events reviewed. No rash No diarrhea Awake, mumbles. Wants to be left alone. No seizures. Antibiotics Diflucan IV Ampho Intra Ventricular. Lines Line sites with no e/o infection Past Medical History AVM s/p coil Allergies: Coded Allergies: Oxycodone (Unverified Allergy, Intermediate, ITCHY, 01/16/16) Objective . Vital Signs Date Time Temp Pulse Resp B/P Pulse Ox O2 Delivery O2 Flow Rate FiO2 06/30/16 14:00 73 06/30/16 12:00 98.6 62 29 132/68 100 06/30/16 12:00 62 06/30/16 10:00 59 06/30/16 08:41 99 06/30/16 08:00 67 06/30/16 08:00 98.3 67 17 130/69 100 06/30/16 06:00 59 06/30/16 04:00 59 06/30/16 04:00 98.9 59 12 90/57 99 06/30/16 02:00 60 06/30/16 00:00 61 06/30/16 00:00 99.2 61 14 157/77 95 06/29/16 22:00 61 06/29/16 20:00 78 06/29/16 20:00 99.6 78 21 147/82 100 06/29/16 19:41 99 06/29/16 18:00 78 06/29/16 06/29/16 06/30/16 14:59 22:59 06:59 Intake Total 763 ml 627 ml 683 ml Output Total 751 ml 500 ml 525 ml Balance 12 ml 127 ml 158 ml IV Total 245 ml 268 ml 165 ml Tube Feeding 518 ml 249 ml 408 ml Tube Irrigant 60 ml 60 ml Other 50 ml 50 ml Output Urine Total 750 ml 500 ml 525 ml Drainage Total 1 ml 0 ml 0 ml # Bowel Movements 0 0 . Laboratory Tests Test 06/29/16 06/30/16 04:20 04:00 White Blood Count 5.8 TH/MM3 7.1 TH/MM3 Red Blood Count 3.32 MIL/MM3 3.28 MIL/MM3 Hemoglobin 10.1 GM/DL 9.7 GM/DL Hematocrit 29.7 % 29.5 % Mean Corpuscular Volume 89.5 FL 89.8 FL Mean Corpuscular Hemoglobin 30.3 PG 29.7 PG Mean Corpuscular Hemoglobin 33.9 % 33.0 % Concent Red Cell Distribution Width 14.0 % 14.0 % Platelet Count 259 TH/MM3 253 TH/MM3 Mean Platelet Volume 7.6 FL 8.0 FL Neutrophils (%) (Auto) 56.6 % 63.8 % Lymphocytes (%) (Auto) 28.8 % 26.2 % Monocytes (%) (Auto) 9.7 % 6.7 % Eosinophils (%) (Auto) 4.0 % 2.6 % Basophils (%) (Auto) 0.9 % 0.7 % Neutrophils # (Auto) 3.3 TH/MM3 4.5 TH/MM3 Lymphocytes # (Auto) 1.7 TH/MM3 1.9 TH/MM3 Monocytes # (Auto) 0.6 TH/MM3 0.5 TH/MM3 Eosinophils # (Auto) 0.2 TH/MM3 0.2 TH/MM3 Basophils # (Auto) 0.1 TH/MM3 0.1 TH/MM3 CBC Comment DIFF FINAL DIFF FINAL Differential Comment Laboratory Tests Test 06/29/16 06/30/16 04:20 04:00 Sodium Level 142 MEQ/L 141 MEQ/L Potassium Level 3.8 MEQ/L 3.7 MEQ/L Chloride Level 104 MEQ/L 101 MEQ/L Carbon Dioxide Level 31.8 MEQ/L 32.3 MEQ/L Anion Gap 6 MEQ/L 8 MEQ/L Blood Urea Nitrogen 18 MG/DL 20 MG/DL Creatinine 0.79 MG/DL 0.81 MG/DL Estimat Glomerular Filtration 102 ML/MIN 99 ML/MIN Rate Random Glucose 88 MG/DL 115 MG/DL Calcium Level 8.9 MG/DL 8.6 MG/DL Phosphorus Level 4.2 MG/DL 4.4 MG/DL Magnesium Level 2.1 MG/DL 2.0 MG/DL Total Bilirubin 0.1 MG/DL 0.1 MG/DL Aspartate Amino Transf 12 U/L 10 U/L (AST/SGOT) Alanine Aminotransferase 36 U/L 33 U/L (ALT/SGPT) Alkaline Phosphatase 86 U/L 89 U/L Total Protein 6.0 GM/DL 5.9 GM/DL Albumin 2.8 GM/DL 2.6 GM/DL Microbiology Date/Time Procedure Status Source Growth 06/30/16 09:30 Gram Stain - Final Resulted Cerebral Spinal Fluid Shunt Fluid 06/30/16 09:30 CSF Culture Resulted Cerebral Spinal Fluid Shunt Fluid Pending 06/30/16 09:30 Fungal Smear - Final Resulted Cerebral Spinal Fluid Shunt Fluid NO FUNGAL ELEMENTS SEEN. 06/30/16 09:30 Fungal Culture Resulted Cerebral Spinal Fluid Shunt Fluid Pending Imaging Last Impressions Head CT 06/10/16 0600 Signed Impressions: Service Date/Time: Friday, June 10, 2016 05:01 - CONCLUSION: 1. 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 Locules of air within the fluid are decreasing since June 08. Right frontal ventriculostomy tube remains present with stable ventricular size. No hydrocephalus. Kirk Cortes MD Physical Exam GENERAL: Thin built, well-developed patient, in no apparent distress. SKIN: No rashes. Cool and dry. HEAD: Surgical site with no e/o infection. Ventric site with no gross e/o infection. EYES: Pupils equal round and reactive. Extraocular motions intact. ENT: Nose without bleeding, purulent drainage or septal hematoma. Throat without erythema, tonsillar hypertrophy or exudate. Uvula midline. Airway patent. NECK: Trachea midline.Supple, nontender, neck not very supple. Some stiffness towards end on flexion. ? patient reliability. CARDIOVASCULAR: Regular rate and rhythm. No murmur appreciated. RESPIRATORY: Clear to auscultation. Breath sounds equal bilaterally. No wheezes , rales, or rhonchi. GASTROINTESTINAL: Abdomen soft, non-tender, nondistended. MUSCULOSKELETAL: Extremities without clubbing, cyanosis, or edema. No joint tenderness, effusion, or edema noted. NEUROLOGICAL: Awake and alert. Responds to questions not appropriate all the times. Moves all 4 extremities. Psych: cooperative IV line sites with no e/o infection. Assessment & Plan Remarks Hermila albicans ventriculitis. MRI cannot be performed due to coils. CSF fluid was very cloudy and had fungal sediments. Patient candidate for CORPORATE FITNESS PROGRAM COORDINATOR shunt in near future. E.faecalis bacteremia: No central lines or PIVs. Treated. Repeat BCX negative. SIRS/Sepsis now controlled since Vanco IV started. AVM was transferred to [facility] for further treatment of the AVM by embolization followed by suboccipital craniotomy for hematoma evacuation and AVM resection. CSF leak and hydrocephalus s/p Rt sima hole and Ventriculostomy catheter placement 06/03/2016. s/p PICC placement. Recs: Discontinue Intra Venous amphotericin Liposomal. Continue Diflucan 800 mg IV every 24 hours. DC Intraventricular Amphotericin instillation. 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 d/w . Jenifer Babin MD Jun 30, 2016 17:28
[2016-07-01] VITALS (13 sets, daily range): BP systolic 107–140; BP diastolic 61–75; PULSE 59–78; RESP 13–20; TEMP 98.2–98.6; O2SAT 12–99
[2016-07-01] MEDS: MORPHINE SULFATE 4 MG/ML INJ IV PUSH PRN ×2 (02:41→23:22)
[2016-07-01] MEDS: CHLORHEXIDINE GLUCONATE 2 % 1 PACK (2 CLOTHS) TOP SCH (03:32)
[2016-07-01 03:56] LABS: AUTOMATED NEUTROPHIL # 4.1 TH/MM3 (1.8-7.7); BASOPHIL % 0.7 % (0.0-2.0); EOSINOPHIL # 0.2 TH/MM3 (0-0.4); EOSINOPHIL % 2.7 % (0.0-4.0); HEMATOCRIT 30.2 % (39.0-51.0); HEMO FLAGS DIFF FINAL; LYMPH % 21.9 % (9.0-44.0); LYMPHOCYTE # 1.3 TH/MM3 (1.0-4.8); MEAN CELL VOLUME 89.2 FL (80.0-100.0); MEAN CORPUSCULAR HEMOGLOBIN 30.5 PG (27.0-34.0); MEAN CORPUSCULAR HGB CONC 34.2 % (32.0-36.0); NEUT % 67.7 % (16.0-70.0); PLATELET COUNT 233 TH/MM3 (150-450); RED BLOOD COUNT 3.39 MIL/MM3 (4.50-5.90)
[2016-07-01 04:18] LABS: ALT (GPT) 34 U/L (12-78); ANION GAP 8 MEQ/L (5-15); AST (GOT) 14 U/L (15-37); BICARBONATE 30.7 MEQ/L (21.0-32.0); BLOOD UREA NITROGEN 20 MG/DL (7-18); CHLORIDE 102 MEQ/L (98-107); GLOMERULAR FILTRATION RATE 105 ML/MIN (>89); MAGNESIUM 2.1 MG/DL (1.5-2.5); POTASSIUM 3.6 MEQ/L (3.5-5.1); SODIUM (NA) 141 MEQ/L (136-145)
[2016-07-01 04:20] LABS: ALKALINE PHOSPHATASE 92 U/L (45-117); TOTAL BILIRUBIN ADULT 0.1 MG/DL (0.2-1.0)
[2016-07-01] MEDS: FREE WATER PEG SCH ×4 (06:17→23:22)
[2016-07-01] MEDS: SENNOSIDES 8.6 MG TAB PO SCH ×2 (07:55→20:00)
[2016-07-01] MEDS: POLYETHYLENE GLYCOL 17 GM PKG PO SCH (07:55)
[2016-07-01] MEDS: METOPROLOL TARTRATE 25 MG TAB PO SCH ×2 (08:40→21:00)
[2016-07-01] MEDS: levETIRAcetam 500 MG TAB PO SCH ×2 (08:40→19:59)
[2016-07-01] MEDS: FAMOTIDINE 20 MG TAB NG SCH ×2 (08:40→19:59)
[2016-07-01] MEDS: THIAMINE HCL 100 MG TAB PO SCH (08:40)
[2016-07-01] MEDS: SODIUM CHLORIDE 0.9% FLUSH 5 ML FLUSH IV FLUSH SCH ×2 (08:40→20:06)
[2016-07-01] MEDS: QUEtiapine FUMARATE 25 MG TAB PO SCH ×2 (08:40→19:59)
[2016-07-01] MEDS: HEPARIN SODIUM - SQ 10,000 UNITS/ML VIAL SQ SCH ×2 (08:40→20:00)
[2016-07-01] MEDS: DOCUSATE SODIUM 100 MG CAP PO SCH ×2 (08:41→19:59)
--- NOTE | 2016-07-01 09:07 | HHI.CCPN ---
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 The patient underwent placement of right frontal external ventricular drain for acute hydrocephalus and was transferred to [facility] for further treatment of the AVM by embolization followed by suboccipital craniotomy for hematoma evacuation and AVM resection. Postoperatively, he was slow to wake up, his EVD was Clamped and removed and his mental status was improving. Other complications include the UTI and agitation. He was started on Rocephin and Seroquel. The patient is being transferred back to [facility] due to confusion and CSF leak. EVD was placed. He was found to have budding yeast, pseudohyphae in CSF and Enterococcus in blood. 06/30: Currently resting in bed in no acute distress with mittens and vest restraint. Afebrile. Tolerating diet. No bowel movement past 24 hours. Subjective 07/01: Resting in bed in no acute distress. Very verbal this morning. Afebrile. No bowel movement this morning. Objective Vital Signs Date Time Temp Pulse Resp B/P Pulse Ox O2 Delivery O2 Flow Rate FiO2 07/01/16 08:00 68 07/01/16 08:00 98.4 20 134/67 98 06/29/16 07:39 21 Intake and Output 06/30/16 06/30/16 07/01/16 08:00 16:00 00:00 Intake Total 683 ml 894 ml 908 ml Output Total 525 ml 480 ml 526 ml Balance 158 ml 414 ml 382 ml Result Diagram: 07/01/16 0340 07/01/16 0340 Other Results Microbiology Date/Time Procedure Status Source Growth 06/30/16 09:30 Gram Stain - Final Resulted Cerebral Spinal Fluid Shunt Fluid 06/30/16 09:30 CSF Culture - Preliminary Resulted Cerebral Spinal Fluid Shunt Fluid NO GROWTH IN 24 HOURS. 06/30/16 09:30 Fungal Smear - Final Resulted Cerebral Spinal Fluid Shunt Fluid NO FUNGAL ELEMENTS SEEN. 06/30/16 09:30 Fungal Culture Resulted Cerebral Spinal Fluid Shunt Fluid Pending Imaging Last Impressions Chest X-Ray 06/22/16 0000 Signed Impressions: Service Date/Time: Wednesday, June 22, 2016 12:54 - CONCLUSION: No acute cardiopulmonary disease identified. Tommy Ramirez MD ADDENDUM: There is a right arm PICC appropriately positioned, tip at the atriocaval junction. Brian Hu MD Head CT 06/10/16 0600 Signed Impressions: Service Date/Time: Friday, June 10, 2016 05:01 - CONCLUSION: 1. 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 Locules of air within the fluid are decreasing since June 08. Right frontal ventriculostomy tube remains present with stable ventricular size. No hydrocephalus. Kirk Cortes MD Objective Remarks GENERAL: 55-year-old male, critically ill currently resting in bed well to do SKIN: Warm and dry. No rash. HEAD: Dry posterior wound, clean, healing well. New right ventriculostomy placed 06/12. EVD draining 31 ml clear CSF in 24 hours at -10 cm H2O NECK: Supple. No thyromegaly lymphadenopathy or carotid bruits. CARDIOVASCULAR: RRR. S1, S2. Without murmurs or clicks, gallops or rubs. RESPIRATORY: Few mobile secretions, clear with cough. Air entry equal bilaterally GASTROINTESTINAL: Abdomen soft, non-tender, nondistended. Normoactive BS MUSCULOSKELETAL: Warm, well perfused. Neuro: Oriented to person. Pupils are equal bilaterally reactive. Moves all 4 extremities spontaneously. Conversant. follows commands. 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 GI: Acute protein calorie malnutritionmild - Continue Jevity 1.5 goal 50 cc an hour - mechanical soft diet - advance to regular Colace/as needed Senokot for bowel regimen Pepcid for GI prophylaxis : Condom catheter in place. HEME: Normocytic anemia - Does not meet transfusion triggers at this time. - Daily CBC ID: Hermila Ventriculitis - intraventricular Amphotericin B administration. Last dose 06/30 - systemic D/Gera - right ventriculostomy 06/03, replaced 06/12 - Continue systemic Diflucan 800 mg IV daily - management per ID - no growth on a sample 06/23 - repeat CSF on Thursday06/30/2016 Enterococcus Bacteremia - Completed course of Vanc IV 06/24 Pertinent cultures Blood cultures 2 - 06/09 - Micrococcus/Enterococcus Faecium/coag negative staph CSF 06/10 and 06/12 - Hermila CSF - 06/30 - Gram stain/fungal cultures no growth Renal: Monitor urine output. Creatinine within normal limits FEN Hypernatremia - resolved - Na today 142 - continue free water to 50cc every 6 - ICU electrolyte protocol Prophylaxis: GI Prophylaxis Pepcid 20 mg twice a day: DVT Prophylaxis - SCDs - Heparin subQ Level 2 Problem Qualifiers (1) UTI (urinary tract infection): (2) Cerebellar hemorrhage: Qualified Code: I61.4 - Nontraumatic intracerebral hemorrhage of cerebellum, unspecified laterality Darrick Dasilva MD Jul 01, 2016 09:06
[2016-07-01] MEDS: FLUCONAZOLE 400 MG PREMIX BAG 400 ML IV SCH ×2 (14:19→16:00)
[2016-07-01] MEDS: ONDANSETRON HCL 4 MG/2 ML VIAL IV PRN ×2 (17:16→23:21)
[2016-07-01] MEDS ORDERED: SODIUM CHLOR 0.9% 1000 ML INJ 1,000 ML IV SCH (17:30)
--- NOTE | 2016-07-01 17:52 | RADRPT ---
EXAM DATE/TIME: 07/01/2016 17:33 [facility] COMPARISON: No previous studies available for comparison. INDICATIONS : Nausea. Abdominal pain. MEDICAL HISTORY : None. SURGICAL HISTORY : None. ENCOUNTER: Initial ACUITY: 1 day PAIN SCORE: 2/10 LOCATION: abdomen. FINDINGS: Supine view of the abdomen was performed. The abdominal bowel gas pattern is normal. No abnormal ma sses, calcifications, or organomegaly is seen. The osseous structures are unremarkable other than mi ld degenerative changes of the lumbar spine. Findings consistent with PEG tube in the left upper quad rant CONCLUSION: Benign abdomen. Probable PEG tube in place Don López MD on July 01, 2016 at 17:49 Board Certified Radiologist. This report was verified electronically.
[2016-07-01 18:37] LABS: ALKALINE PHOSPHATASE 84 U/L (45-117); ALT (GPT) 29 U/L (12-78); AMYLASE 43 U/L (25-115); AST (GOT) 11 U/L (15-37); TOTAL BILIRUBIN ADULT 0.1 MG/DL (0.2-1.0)
[2016-07-01] MEDS: ACETAMIN 325 MG/BUTALBITAL 50 MG/CAFFEINE 40 MG TAB PO PRN (19:59)
[2016-07-01] MEDS: diphenhydrAMINE HCL 50 MG/ML VIAL IV PRN (23:22)
[2016-07-02] VITALS (13 sets, daily range): BP systolic 120–152; BP diastolic 72–87; PULSE 56–85; RESP 12–20; TEMP 98–98.8; O2SAT 98–100
[2016-07-02] MEDS: CHLORHEXIDINE GLUCONATE 2 % 1 PACK (2 CLOTHS) TOP SCH (04:00)
[2016-07-02 04:52] LABS: BASOPHIL # 0.1 TH/MM3 (0-0.2); BASOPHIL % 1.4 % (0.0-2.0); EOSINOPHIL # 0.2 TH/MM3 (0-0.4); EOSINOPHIL % 3.7 % (0.0-4.0); HEMATOCRIT 29.2 % (39.0-51.0); HEMO FLAGS DIFF FINAL; LYMPH % 28.3 % (9.0-44.0); LYMPHOCYTE # 1.4 TH/MM3 (1.0-4.8); MEAN CELL VOLUME 89.2 FL (80.0-100.0); MEAN CORPUSCULAR HEMOGLOBIN 30.2 PG (27.0-34.0); MEAN CORPUSCULAR HGB CONC 33.9 % (32.0-36.0); MONO % 7.9 % (0.0-8.0); NEUT % 58.7 % (16.0-70.0); PLATELET COUNT 215 TH/MM3 (150-450); RED BLOOD COUNT 3.28 MIL/MM3 (4.50-5.90); RED CELL DISTRIBUTION WIDTH 13.8 % (11.6-17.2); WHITE BLOOD COUNT 5.1 TH/MM3 (4.0-11.0)
[2016-07-02 05:26] LABS: ALKALINE PHOSPHATASE 93 U/L (45-117); ALT (GPT) 30 U/L (12-78); ANION GAP 6 MEQ/L (5-15); AST (GOT) 9 U/L (15-37); BICARBONATE 32.7 MEQ/L (21.0-32.0); BLOOD UREA NITROGEN 15 MG/DL (7-18); CHLORIDE 105 MEQ/L (98-107); GLOMERULAR FILTRATION RATE 107 ML/MIN (>89); POTASSIUM 3.7 MEQ/L (3.5-5.1); SODIUM (NA) 144 MEQ/L (136-145); TOTAL BILIRUBIN ADULT 0.2 MG/DL (0.2-1.0)
[2016-07-02] MEDS: FREE WATER PEG SCH ×3 (05:32→17:25)
[2016-07-02] MEDS: levETIRAcetam 500 MG TAB PO SCH ×2 (08:26→20:09)
[2016-07-02] MEDS: HEPARIN SODIUM - SQ 10,000 UNITS/ML VIAL SQ SCH ×2 (08:27→20:09)
[2016-07-02] MEDS: THIAMINE HCL 100 MG TAB PO SCH (08:27)
[2016-07-02] MEDS: METOPROLOL TARTRATE 25 MG TAB PO SCH ×2 (08:27→21:00)
[2016-07-02] MEDS: diphenhydrAMINE HCL 50 MG/ML VIAL IV PRN ×2 (08:27→16:23)
[2016-07-02] MEDS: QUEtiapine FUMARATE 25 MG TAB PO SCH ×2 (08:28→20:09)
[2016-07-02] MEDS: SODIUM CHLORIDE 0.9% FLUSH 5 ML FLUSH IV FLUSH SCH ×2 (08:28→20:10)
[2016-07-02] MEDS: SENNOSIDES 8.6 MG TAB PO SCH ×2 (08:28→20:09)
[2016-07-02] MEDS: FAMOTIDINE 20 MG TAB NG SCH ×2 (08:28→20:09)
[2016-07-02] MEDS: POLYETHYLENE GLYCOL 17 GM PKG PO SCH (08:28)
[2016-07-02] MEDS: DOCUSATE SODIUM 100 MG CAP PO SCH ×2 (08:28→20:09)
--- NOTE | 2016-07-02 09:44 | HHI.CCPN ---
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 The patient underwent placement of right frontal external ventricular drain for acute hydrocephalus and was transferred to [facility] for further treatment of the AVM by embolization followed by suboccipital craniotomy for hematoma evacuation and AVM resection. Postoperatively, he was slow to wake up, his EVD was Clamped and removed and his mental status was improving. Other complications include the UTI and agitation. He was started on Rocephin and Seroquel. The patient is being transferred back to [facility] due to confusion and CSF leak. EVD was placed. He was found to have budding yeast, pseudohyphae in CSF and Enterococcus in blood. 06/30: Currently resting in bed in no acute distress with mittens and vest restraint. Afebrile. Tolerating diet. No bowel movement past 24 hours. 07/01: Resting in bed in no acute distress. Very verbal this morning. Afebrile. No bowel movement this morning. Subjective 07/02: Afebrile. 2 episodes of emesis yesterday since resolved. Denies abdominal pain. Tolerating tube feeding. One bowel movement. Objective Vital Signs Date Time Temp Pulse Resp B/P Pulse Ox O2 Delivery O2 Flow Rate FiO2 07/02/16 08:30 99 21 07/02/16 08:00 98.5 66 15 120/75 Intake and Output 07/01/16 07/01/16 07/02/16 08:00 16:00 00:00 Intake Total 961 ml 762 ml 1257 ml Output Total 600 ml 850 ml 354 ml Balance 361 ml -88 ml 903 ml Result Diagram: 07/02/16 0448 07/02/16 0448 Other Results Microbiology Date/Time Procedure Status Source Growth 06/30/16 09:30 Gram Stain - Final Resulted Cerebral Spinal Fluid Shunt Fluid 06/30/16 09:30 CSF Culture - Preliminary Resulted Cerebral Spinal Fluid Shunt Fluid NO GROWTH IN 48 HOURS. 06/30/16 09:30 Fungal Smear - Final Resulted Cerebral Spinal Fluid Shunt Fluid NO FUNGAL ELEMENTS SEEN. 06/30/16 09:30 Fungal Culture Resulted Cerebral Spinal Fluid Shunt Fluid Pending Imaging Last Impressions Abdomen X-Ray 07/01/16 0000 Signed Impressions: Service Date/Time: Friday, July 01, 2016 17:33 - CONCLUSION: Benign abdomen. Probable PEG tube in place Don López MD Chest X-Ray 06/22/16 0000 Signed Impressions: Service Date/Time: Wednesday, June 22, 2016 12:54 - CONCLUSION: No acute cardiopulmonary disease identified. Tommy Ramirez MD ADDENDUM: There is a right arm PICC appropriately positioned, tip at the atriocaval junction. Brian Hu MD Head CT 06/10/16 0600 Signed Impressions: Service Date/Time: Friday, June 10, 2016 05:01 - CONCLUSION: 1. 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 Locules of air within the fluid are decreasing since June 08. Right frontal ventriculostomy tube remains present with stable ventricular size. No hydrocephalus. Kirk Cortes MD Objective Remarks GENERAL: 55-year-old male, critically ill currently resting in bed well to do SKIN: Warm and dry. No rash. HEAD: Dry posterior wound, clean, healing well. New right ventriculostomy placed 06/12. EVD draining 4 ml clear CSF in 24 hours at -10 cm H2O NECK: Supple. No thyromegaly lymphadenopathy or carotid bruits. CARDIOVASCULAR: RRR. S1, S2. Without murmurs or clicks, gallops or rubs. RESPIRATORY: Few mobile secretions, clear with cough. Air entry equal bilaterally GASTROINTESTINAL: Abdomen soft, non-tender, nondistended. Normoactive BS MUSCULOSKELETAL: Warm, well perfused. Neuro: Oriented to person. Pupils are equal bilaterally reactive. Moves all 4 extremities spontaneously. Conversant. follows commands. 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 - status post AVM embolization at [facility] followed by suboccipital craniotomy for hematoma evacuation and AVM resection - EVD wean per NSGY, rased to 10 CM H2O - Neurochecks per ICU routine - Keppra 500 mg twice a day for seizure prophylaxis - Strict BP control CSF leak - repaired - EVD in place - wean per Neurosurgeon - currently at 10 cm H2O - may need a [employer] shunt - awaiting ID clearance Continue Seroquel 25 mg twice a day CVS Hypertension - Metoprol 12.5 milligrams Q12 hours - controlled and no issues - continue Telemetry RESP: Currently on room air. GI: Acute protein calorie malnutritionmild - Continue Jevity 1.5 goal 50 cc an hour - mechanical soft diet - advance to regular as tolerated Colace/as needed Senokot for bowel regimen Pepcid for GI prophylaxis KUB 07/01 revealed nonspecific bowel gas pattern. : Condom catheter in place. HEME: Normocytic anemia - Does not meet transfusion triggers at this time. - Daily CBC ID: Hermila Ventriculitis - intraventricular Amphotericin B administration. Last dose 06/30 - systemic D/Gera - right ventriculostomy 06/03, replaced 06/12 - Continue systemic Diflucan 800 mg IV daily - management per ID - no growth on a sample 06/23 - repeat CSF on Thursday06/30/2016 Enterococcus Bacteremia - Completed course of Vanc IV 06/24 Pertinent cultures Blood cultures 2 - 06/09 - Micrococcus/Enterococcus Faecium/coag negative staph CSF 06/10 and 06/12 - Hermila CSF - 06/30 - Gram stain/fungal cultures no growth Renal: Monitor urine output. Creatinine within normal limits FEN Hypernatremia - resolved - Na currently within normal limits - continue free water to 50cc every 6 - ICU electrolyte protocol Prophylaxis: GI Prophylaxis Pepcid 20 mg twice a day: DVT Prophylaxis - SCDs - Heparin subQ Level 2 Problem Qualifiers (1) UTI (urinary tract infection): (2) Cerebellar hemorrhage: Qualified Code: I61.4 - Nontraumatic intracerebral hemorrhage of cerebellum, unspecified laterality Darrick Dasilva MD Jul 02, 2016 09:44
[2016-07-02] MEDS: MORPHINE SULFATE 4 MG/ML INJ IV PUSH PRN ×2 (13:26→16:22)
[2016-07-02] MEDS: FLUCONAZOLE 400 MG PREMIX BAG 400 ML IV SCH ×2 (13:27→16:19)
--- NOTE | 2016-07-02 13:45 | HHI.NSPN ---
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 The patient underwent placement of right frontal external ventricular drain for acute hydrocephalus and was transferred to [facility] for further treatment of the AVM by embolization followed by suboccipital craniotomy for hematoma evacuation, and AVM resection at [facility] . Postoperatively, he was slow to wake up, his EVD was Clamped and removed at [facility] and his mental status was improving. He had UTI and agitation. He was started on Rocephin and Seroquel. The patient was being transferred back to [facility] due to confusion and CSF leak. 06/04: s/p placement of ventriculostomy drain. no further leaking noted from posterior fossa wound, there has been scab formation also. 06/05: no wound leak seen 06/06: appears more awake today, wound dry, no evidence of CSF leaking overnight 06/09: wound dry, sitting up in chair eating breakfast 06/10: follow up CT Brain reviewed 06/11: prelim CSF testing shows elevated WBCs, proteins with low glucose, 06/12: CSF showing fungal growth, intraventricular ampho b ordered 06/13: EVD draining, no significant changes to neuro checks overnight 06/16: neuro checks stable overnight, alert, pleasantly confused today 06/17: intermittently confused, working with PT, repeat CSF cx pending 06/18: intermittent complaints of headaches yesterday, currently denies HAs, moves all four extremities, reported no allergic type rx following administration of intraventric ampho 06/19: reported SCHULTZ following ampho b adminstration that resolves, no changed in mental status or neuro checks 06/20: pleasantly confused, neuro checks stable overnight. 06/23: sitting up in chair, stably confused. 06/24: repeat CSF fungal stain neg, cultures pending 06/25: about to sit up in chair for breakfast, only transferring short distance from bed to chair and he is reported to still be quite ataxic. Final fungal smear reports no fungal elements seen. 06/26: denies headaches, feels his head is clearer 06/27: room moved to across nursing station, requesting milkshake for breakfast. 06/28: stable neuro checks, denies headaches, stably confused, follows simple commands 06/29: doing well, unchanged overnight 07/02: challenging EVD, minimal output at 10 cm H20, neuro checks stable. Intraventric ampho dc'ed per ID (Anusha Hastings) Labs, Micro, & Vital Signs Results Date Time Temp Pulse Resp B/P Pulse Ox O2 Delivery O2 Flow Rate FiO2 07/02/16 12:00 98.8 62 14 152/81 100 07/02/16 12:00 68 07/02/16 10:00 85 07/02/16 08:30 99 21 07/02/16 08:00 98.5 66 15 120/75 99 07/02/16 08:00 63 07/02/16 06:00 64 07/02/16 04:00 98.4 60 16 134/77 99 07/02/16 04:00 60 07/02/16 02:00 56 07/02/16 00:00 98.0 57 12 130/72 99 07/02/16 00:00 57 07/01/16 22:00 60 07/01/16 20:00 66 07/01/16 20:00 98.6 66 16 140/74 99 07/01/16 19:30 99 21 07/01/16 18:00 68 07/01/16 16:00 98.2 66 13 132/75 99 07/01/16 16:00 77 07/01/16 14:00 60 07/02/16 07:00 Intake Total 2865 ml Output Total 1704 ml Balance 1161 ml Constitutional Vital Signs Date Time Temp Pulse Resp B/P Pulse Ox O2 Delivery O2 Flow Rate FiO2 07/02/16 12:00 98.8 62 14 152/81 100 07/02/16 12:00 68 07/02/16 10:00 85 07/02/16 08:30 99 21 07/02/16 08:00 98.5 66 15 120/75 99 07/02/16 08:00 63 07/02/16 06:00 64 07/02/16 04:00 98.4 60 16 134/77 99 07/02/16 04:00 60 07/02/16 02:00 56 07/02/16 00:00 98.0 57 12 130/72 99 07/02/16 00:00 57 07/01/16 22:00 60 07/01/16 20:00 66 07/01/16 20:00 98.6 66 16 140/74 99 07/01/16 19:30 99 21 07/01/16 18:00 68 07/01/16 16:00 98.2 66 13 132/75 99 07/01/16 16:00 77 07/01/16 14:00 60 07/02/16 07:00 Intake Total 2865 ml Output Total 1704 ml Balance 1161 ml (Anusha Hastings) Review of Systems/Exam Exam No changes to his examination He is alert. Speech is fluent and converses, but confused. follows few simple commands. surgical healing well, no evidence of drainage noted Ventriculostomy drain open at 10 cm H20, minimal drainage. EVD site is intact , and clean CN: pupils 3 mm equal, gross EOMs intact. facial appears symmetric at rest Motor: moves grossly all four extremities symmetrically to command, on upper extremity restraints and hand mittens Extremities: no swelling (Anusha Hastings) Medications Current Medications Current Medications Medications (Trade) Dose Ordered Sig/Paula Route PRN Reason Start Time Stop Time Status Last Admin Dose Admin Naloxone HCl (Narcan Inj) 0.4 mg UNSCH PRN IV SEE LABEL COMMENTS 05/29/16 15:00 Acetaminophen/ Butalbital/ Caffeine (Fioricet 325-50-40) 1 tab Q6H PRN PO PAIN GREATER THAN 5 or headach 05/29/16 15:00 07/01/16 19:59 Heparin Sodium (Porcine) (Heparin Inj) 5,000 units Q12HR SQ 05/29/16 21:00 07/02/16 08:27 Levetriacetam (Keppra) 500 mg Q12HR PO 05/29/16 21:00 07/02/16 08:26 Morphine Sulfate (Morphine Inj) 2 mg Q3H PRN IV PUSH BREAKTHROUGH PAIN 06/02/16 10:30 07/02/16 13:26 Diphenhydramine HCl (Benadryl 2% Cream) 1 applic TID PRN TOPICAL ITCHING 06/02/16 11:15 IV Flush (NS Flush) 2 ml UNSCH PRN IV FLUSH FLUSH AFTER USING IV ACCESS 06/03/16 09:45 IV Flush (NS Flush) 2 ml BID IV FLUSH 06/03/16 21:00 07/02/16 08:28 Acetaminophen (Tylenol) 650 mg Q6H PRN PO FEVER >100F 06/03/16 09:45 06/22/16 09:11 Ondansetron HCl (Zofran Inj) 4 mg Q6H PRN IV NAUSEA OR VOMITING 06/03/16 09:45 07/01/16 23:21 Docusate Sodium (Colace) 100 mg BID PO 06/03/16 21:00 07/01/16 19:59 Sennosides (Senokot) 17.2 mg BID PO 06/03/16 09:45 07/01/16 20:00 Miscellaneous Information 1 Q361D XX 06/03/16 09:45 Chlorhexidine Gluconate (Chlorhexidine 2% Cloth) Taper DAILY@04 TOP 06/04/16 04:00 05/31/17 03:59 06/25/16 04:00 Chlorhexidine Gluconate (Chlorhexidine 2% Cloth) 3 pack UNSCH PRN TOP HYGIENIC CARE 06/03/16 09:45 Polyethylene Glycol 17 gm 17 gm DAILY PO 06/04/16 09:00 06/30/16 09:11 Sodium Chloride (NS 1000 ml Inj) 1,000 ml @ 100 mls/hr Q10H IV 06/03/16 21:16 Hold 06/05/16 22:23 Famotidine (Pepcid) 20 mg BID NG 06/04/16 09:00 07/02/16 08:28 Metoprolol Tartrate (Lopressor) 12.5 mg Q12HR PO 06/05/16 21:00 07/02/16 08:27 Quetiapine Fumarate (SEROquel) 25 mg BID PO 06/06/16 09:00 07/02/16 08:28 Loperamide HCl (Imodium Liq) 2 mg UNSCH PRN TUBE DIARRHEA 06/06/16 16:15 06/23/16 09:14 Diphenhydramine HCl (Benadryl Inj) 25 mg Q24H PRN IV PRE-MED PRIOR TO AMPHOTERCIN B 06/11/16 17:00 07/02/16 08:27 Hydrocortisone Sodium Succinate 25 mg 25 mg Q24H PRN IV PRE-MED PRIOR TO AMPHOTERCIN B 06/11/16 17:00 06/30/16 09:54 Potassium Chloride 100 ml @ 50 mls/hr Q2H PRN IV For Potassium 2.8 - 3.2 mEq/L 06/12/16 07:15 06/23/16 09:43 Potassium Chloride (KCl 20 Meq Premix Inj) 100 ml @ 50 mls/hr Q2H PRN IV For Potassium 2.8 - 3.2 mEq/L 06/12/16 07:15 06/26/16 11:32 Potassium Chloride 40 meq 40 meq UNSCH PRN PO/TUBE For Potassium 3.3 - 3.5 mEq/L 06/12/16 07:15 06/28/16 06:33 Potassium Chloride 100 ml @ 25 mls/hr UNSCH PRN IV For Potassium 3.3 - 3.5 mEq/L 06/12/16 07:15 Potassium Chloride 100 ml @ 50 mls/hr Q2H PRN IV For Potassium 3.3 - 3.5 mEq/L 06/12/16 07:15 06/26/16 09:24 Magnesium Sulfate/ Sodium Chloride (Magnesium Sulfate Inj/NS Inj) 100 ml @ 50 mls/hr UNSCH PRN IV For Magnesium 0.9 - 1.1 mg/dL 06/12/16 07:15 Magnesium Oxide 800 mg 800 mg UNSCH PRN PO For Magnesium 1.2 - 1.6 mg/dL 06/12/16 07:15 Magnesium Sulfate/ Sodium Chloride (Magnesium Sulfate Inj/NS Inj) 100 ml @ 50 mls/hr UNSCH PRN IV For Magnesium 1.2 - 1.6 mg/dL 06/12/16 07:15 Potassium Phosphate 2000 mg 2,000 mg Q4H PRN PO For Phosphorus < 2.5 mg/dL 06/12/16 07:15 Sodium Phosphate/ Sodium Chloride (Sodium Phosphate Inj/NS 250 ml Inj) 250 ml @ 42 mls/hr UNSCH PRN IV For Phosphorus < 2.5 mg/dL 06/12/16 07:15 Potassium Chloride (KCl 40 Meq/30 ml Liq) 40 meq UNSCH PRN PO/TUBE SEE LABEL COMMENTS 06/12/16 07:15 Potassium Phosphate 2000 mg 2,000 mg UNSCH PRN PO/TUBE SEE LABEL COMMENTS 06/12/16 07:15 Potassium Phosphate/Sodium Chloride (Potassium Phosphate Inj/NS 250 ml Inj) 260 ml @ 42 mls/hr UNSCH PRN IV SEE LABEL COMMENTS 06/12/16 07:15 IV Flush (NS Flush) See Protocol DAILY IVF 06/23/16 09:00 07/02/16 08:28 IV Flush (NS Flush) See Protocol UNSCH PRN IVF SEE PROTOCOL TABLE 06/22/16 12:30 IV Flush See Protocol UNSCH PRN IVF SEE PROTOCOL TABLE 06/22/16 12:30 Fluconazole/ Sodium Chloride 400 ml @ 200 mls/hr Q24H IV 06/22/16 14:00 07/02/16 13:27 Fluconazole/ Sodium Chloride (Diflucan 400 Mg Premix Bag) 400 ml @ 200 mls/hr Q24H IV 06/23/16 16:00 07/01/16 16:00 Thiamine HCl (Vitamin B1) 100 mg DAILY PO 06/28/16 09:00 07/02/16 08:27 Water (Free Water) 50 ml Q6HR PEG 06/28/16 12:00 07/02/16 11:36 (Anusha Hastings) Medical Decision Making MDM Remarks 55 y/o male s/p posterior fossa craniectomy for evacuation of cerebellar bleed due to AVM with embolization at [facility] s/p ventriculostomy placement for CSF leak, resolved CSF leak ventriculitis with growth of Hermila, replacement of ventriculostomy drain , started intraventricular Ampho B tx 06/12/16, completed repeat CSF culture 06/23 shows no fungal elements (Anusha Hastings) Plan Plan Remarks raise EVD to 20 cm H20, cont neuro check and f/u exam per ID will need repeat intraventricular CSF next week cont current care (Anusha Hastings) Attending Statement The exam, history, and the medical decision-making described in the above note were completed with the assistance of the mid-level provider. I reviewed and agree with the findings presented. I attest that I had a [id number] encounter with the patient on the same day, and personally performed and documented my assessment and findings in the medical record. (John Flowers MD) Anusha Hastings Jul 02, 2016 13:45 John Flowers MD Jul 02, 2016 22:12
[2016-07-02] MEDS: ACETAMIN 325 MG/BUTALBITAL 50 MG/CAFFEINE 40 MG TAB PO PRN (20:09)
[2016-07-03] VITALS (12 sets, daily range): BP systolic 105–156; BP diastolic 56–81; PULSE 59–73; RESP 14–25; TEMP 98.2–98.8; O2SAT 96–100
[2016-07-03] MEDS: CHLORHEXIDINE GLUCONATE 2 % 1 PACK (2 CLOTHS) TOP SCH (02:52)
[2016-07-03] MEDS: FREE WATER PEG SCH ×4 (02:52→17:50)
[2016-07-03 04:04] LABS: AUTOMATED NEUTROPHIL # 3.5 TH/MM3 (1.8-7.7); BASOPHIL % 0.7 % (0.0-2.0); EOSINOPHIL # 0.2 TH/MM3 (0-0.4); EOSINOPHIL % 3.3 % (0.0-4.0); HEMATOCRIT 28.1 % (39.0-51.0); HEMO FLAGS DIFF FINAL; LYMPH % 22.2 % (9.0-44.0); LYMPHOCYTE # 1.2 TH/MM3 (1.0-4.8); MEAN CORPUSCULAR HEMOGLOBIN 30.2 PG (27.0-34.0); MEAN CORPUSCULAR HGB CONC 33.9 % (32.0-36.0); NEUT % 65.8 % (16.0-70.0); PLATELET COUNT 201 TH/MM3 (150-450); RED BLOOD COUNT 3.16 MIL/MM3 (4.50-5.90); RED CELL DISTRIBUTION WIDTH 13.9 % (11.6-17.2); WHITE BLOOD COUNT 5.3 TH/MM3 (4.0-11.0)
[2016-07-03 04:35] LABS: ALKALINE PHOSPHATASE 92 U/L (45-117); ALT (GPT) 27 U/L (12-78); ANION GAP 6 MEQ/L (5-15); AST (GOT) 8 U/L (15-37); BICARBONATE 33.4 MEQ/L (21.0-32.0); BLOOD UREA NITROGEN 14 MG/DL (7-18); CHLORIDE 103 MEQ/L (98-107); GLOMERULAR FILTRATION RATE 118 ML/MIN (>89); POTASSIUM 3.6 MEQ/L (3.5-5.1); SODIUM (NA) 142 MEQ/L (136-145); TOTAL BILIRUBIN ADULT 0.2 MG/DL (0.2-1.0)
[2016-07-03] MEDS: ONDANSETRON HCL 4 MG/2 ML VIAL IV PRN (05:32)
[2016-07-03] MEDS: FAMOTIDINE 20 MG TAB NG SCH ×2 (08:06→20:54)
[2016-07-03] MEDS: HEPARIN SODIUM - SQ 10,000 UNITS/ML VIAL SQ SCH ×2 (08:06→20:54)
[2016-07-03] MEDS: QUEtiapine FUMARATE 25 MG TAB PO SCH ×2 (08:07→20:53)
[2016-07-03] MEDS: THIAMINE HCL 100 MG TAB PO SCH (08:07)
[2016-07-03] MEDS: METOPROLOL TARTRATE 25 MG TAB PO SCH ×2 (08:07→20:54)
[2016-07-03] MEDS: LOPERAMIDE HCL SOLN 2 MG/10 ML UDC TUBE PRN ×2 (08:07→14:57)
[2016-07-03] MEDS: levETIRAcetam 500 MG TAB PO SCH ×2 (08:09→20:59)
[2016-07-03] MEDS: DOCUSATE SODIUM 100 MG CAP PO SCH ×2 (08:09→20:55)
[2016-07-03] MEDS: POLYETHYLENE GLYCOL 17 GM PKG PO SCH ×2 (08:10→20:00)
[2016-07-03] MEDS: SENNOSIDES 8.6 MG TAB PO SCH ×2 (08:10→20:55)
[2016-07-03] MEDS: SODIUM CHLORIDE 0.9% FLUSH 5 ML FLUSH IV FLUSH SCH ×2 (08:10→20:54)
[2016-07-03] MEDS: ACETAMIN 325 MG/BUTALBITAL 50 MG/CAFFEINE 40 MG TAB PO PRN (08:56)
--- NOTE | 2016-07-03 09:26 | HHI.CCPN ---
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 The patient underwent placement of right frontal external ventricular drain for acute hydrocephalus and was transferred to [facility] for further treatment of the AVM by embolization followed by suboccipital craniotomy for hematoma evacuation and AVM resection. Postoperatively, he was slow to wake up, his EVD was Clamped and removed and his mental status was improving. Other complications include the UTI and agitation. He was started on Rocephin and Seroquel. The patient is being transferred back to [facility] due to confusion and CSF leak. EVD was placed. He was found to have budding yeast, pseudohyphae in CSF and Enterococcus in blood. 06/30: Currently resting in bed in no acute distress with mittens and vest restraint. Afebrile. Tolerating diet. No bowel movement past 24 hours. 07/01: Resting in bed in no acute distress. Very verbal this morning. Afebrile. No bowel movement this morning. 07/02: Afebrile. 2 episodes of emesis yesterday since resolved. Denies abdominal pain. Tolerating tube feeding. One bowel movement. Subjective 07/03: Afebrile. One emesis overnight. KUB unremarkable liver function tests within normal limits. Denies nausea right now. Complaining of itchiness. Objective Vital Signs Date Time Temp Pulse Resp B/P Pulse Ox O2 Delivery O2 Flow Rate FiO2 07/03/16 06:00 73 07/03/16 04:00 98.2 14 131/68 99 07/02/16 08:30 21 Intake and Output 07/02/16 07/02/16 07/03/16 08:00 16:00 00:00 Intake Total 846 ml 1381 ml 919 ml Output Total 500 ml 800 ml 850 ml Balance 346 ml 581 ml 69 ml Result Diagram: 07/03/16 0352 07/03/16 0352 Other Results Microbiology Date/Time Procedure Status Source Growth 06/30/16 09:30 Gram Stain - Final Resulted Cerebral Spinal Fluid Shunt Fluid 06/30/16 09:30 CSF Culture - Preliminary Resulted Cerebral Spinal Fluid Shunt Fluid NO GROWTH IN 48 HOURS. 06/30/16 09:30 Fungal Smear - Final Resulted Cerebral Spinal Fluid Shunt Fluid NO FUNGAL ELEMENTS SEEN. 06/30/16 09:30 Fungal Culture Resulted Cerebral Spinal Fluid Shunt Fluid Pending Imaging Last Impressions Abdomen X-Ray 07/01/16 0000 Signed Impressions: Service Date/Time: Friday, July 01, 2016 17:33 - CONCLUSION: Benign abdomen. Probable PEG tube in place Don López MD Chest X-Ray 06/22/16 0000 Signed Impressions: Service Date/Time: Wednesday, June 22, 2016 12:54 - CONCLUSION: No acute cardiopulmonary disease identified. Tommy Ramirez MD ADDENDUM: There is a right arm PICC appropriately positioned, tip at the atriocaval junction. Brian Hu MD Head CT 06/10/16 0600 Signed Impressions: Service Date/Time: Friday, June 10, 2016 05:01 - CONCLUSION: 1. 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 Locules of air within the fluid are decreasing since June 08. Right frontal ventriculostomy tube remains present with stable ventricular size. No hydrocephalus. Kirk Cortes MD Objective Remarks GENERAL: 55-year-old male, critically ill currently resting in bed well to do SKIN: Warm and dry. No rash. HEAD: Dry posterior wound, clean, healing well. New right ventriculostomy placed 06/12. EVD draining 0 ml clear CSF in 24 hours at -20 cm H2O NECK: Supple. No thyromegaly lymphadenopathy or carotid bruits. CARDIOVASCULAR: RRR. S1, S2. Without murmurs or clicks, gallops or rubs. RESPIRATORY: Few mobile secretions, clear with cough. Air entry equal bilaterally GASTROINTESTINAL: Abdomen soft, non-tender, nondistended. Normoactive BS MUSCULOSKELETAL: Warm, well perfused. Neuro: Oriented to person. Pupils are equal bilaterally reactive. Moves all 4 extremities spontaneously. Conversant. follows commands. 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 followed by suboccipital craniotomy for hematoma evacuation and AVM resection - EVD wean per NSGY, possible removal today? - Neurochecks per ICU routine - Keppra 500 mg twice a day for seizure prophylaxis - Strict BP control CSF leak - repaired - EVD in place - wean per Neurosurgeon -possible removal today? - awaiting ID clearance Continue Seroquel 25 mg twice a day CVS Hypertension - Metoprolol 12.5 milligrams Q12 hours - continue Telemetry RESP: Currently on room air. GI: Acute protein calorie malnutritionmild - Continue Jevity 1.5 goal 50 cc an hour with Reglan initiated for motility - mechanical soft diet - advance to regular as tolerated Colace/as needed Senokot for bowel regimen Pepcid for GI prophylaxis KUB 07/01 revealed nonspecific bowel gas pattern. : Condom catheter in place. HEME: Normocytic anemia - Does not meet transfusion triggers at this time. - Daily CBC ID: Hermila Ventriculitis - intraventricular Amphotericin B administration. Last dose 06/30 - systemic D/Gera - right ventriculostomy 06/03, replaced 06/12 - Continue systemic Diflucan 800 mg IV daily - management per ID - no growth on a sample 06/23 - repeat CSF on Thursday06/30/2016 no growth Enterococcus Bacteremia - Completed course of Vanc IV 06/24 Pertinent cultures Blood cultures 2 - 06/09 - Micrococcus/Enterococcus Faecium/coag negative staph CSF 06/10 and 06/12 - Hermila CSF - 06/30 - Gram stain/fungal cultures no growth Renal: Monitor urine output. Creatinine within normal limits FEN Hypernatremia - resolved - Na currently within normal limits - continue free water to 50cc every 6 - ICU electrolyte protocol Prophylaxis: GI Prophylaxis Pepcid 20 mg twice a day: DVT Prophylaxis - SCDs - Heparin subQ Level 2 Problem Qualifiers (1) UTI (urinary tract infection): (2) Cerebellar hemorrhage: Qualified Code: I61.4 - Nontraumatic intracerebral hemorrhage of cerebellum, unspecified laterality Darrick Dasilva MD Jul 03, 2016 09:26
[2016-07-03] MEDS: MORPHINE SULFATE 4 MG/ML INJ IV PUSH PRN (10:14)
--- NOTE | 2016-07-03 11:40 | HHI.NSPN ---
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 The patient underwent placement of right frontal external ventricular drain for acute hydrocephalus and was transferred to [facility] for further treatment of the AVM by embolization followed by suboccipital craniotomy for hematoma evacuation, and AVM resection at [facility] . Postoperatively, he was slow to wake up, his EVD was Clamped and removed at [facility] and his mental status was improving. He had UTI and agitation. He was started on Rocephin and Seroquel. The patient was being transferred back to [facility] due to confusion and CSF leak. 06/04: s/p placement of ventriculostomy drain. no further leaking noted from posterior fossa wound, there has been scab formation also. 06/05: no wound leak seen 06/06: appears more awake today, wound dry, no evidence of CSF leaking overnight 06/09: wound dry, sitting up in chair eating breakfast 06/10: follow up CT Brain reviewed 06/11: prelim CSF testing shows elevated WBCs, proteins with low glucose, 06/12: CSF showing fungal growth, intraventricular ampho b ordered 06/13: EVD draining, no significant changes to neuro checks overnight 06/16: neuro checks stable overnight, alert, pleasantly confused today 06/17: intermittently confused, working with PT, repeat CSF cx pending 06/18: intermittent complaints of headaches yesterday, currently denies HAs, moves all four extremities, reported no allergic type rx following administration of intraventric ampho 06/19: reported SCHULTZ following ampho b adminstration that resolves, no changed in mental status or neuro checks 06/20: pleasantly confused, neuro checks stable overnight. 06/23: sitting up in chair, stably confused. 06/24: repeat CSF fungal stain neg, cultures pending 06/25: about to sit up in chair for breakfast, only transferring short distance from bed to chair and he is reported to still be quite ataxic. Final fungal smear reports no fungal elements seen. 06/26: denies headaches, feels his head is clearer 06/27: room moved to across nursing station, requesting milkshake for breakfast. 06/28: stable neuro checks, denies headaches, stably confused, follows simple commands 06/29: doing well, unchanged overnight 07/02: challenging EVD, minimal output at 10 cm H20, neuro checks stable. Intraventric ampho dc'ed per ID 07/03: mental status reported to be unchanged, had vomited once yesterday (Anusha Hastings) Labs, Micro, & Vital Signs Results Date Time Temp Pulse Resp B/P Pulse Ox O2 Delivery O2 Flow Rate FiO2 07/03/16 10:19 15 07/03/16 10:00 62 07/03/16 09:56 20 07/03/16 08:00 98.8 68 25 144/81 96 07/03/16 08:00 65 07/03/16 06:00 73 07/03/16 04:00 98.2 68 14 131/68 99 07/03/16 04:00 68 07/03/16 02:00 64 07/03/16 00:00 98.3 64 16 126/72 100 07/03/16 00:00 64 07/02/16 22:00 73 07/02/16 20:00 68 07/02/16 20:00 98.5 68 20 133/87 99 07/02/16 18:00 63 07/02/16 16:00 67 07/02/16 16:00 98.8 67 20 145/81 98 07/02/16 14:00 66 07/02/16 12:00 98.8 62 14 152/81 100 07/02/16 12:00 68 07/03/16 07:00 Intake Total 2955 ml Output Total 2201 ml Balance 754 ml Constitutional Vital Signs Date Time Temp Pulse Resp B/P Pulse Ox O2 Delivery O2 Flow Rate FiO2 07/03/16 10:19 15 07/03/16 10:00 62 07/03/16 09:56 20 07/03/16 08:00 98.8 68 25 144/81 96 07/03/16 08:00 65 07/03/16 06:00 73 07/03/16 04:00 98.2 68 14 131/68 99 07/03/16 04:00 68 07/03/16 02:00 64 07/03/16 00:00 98.3 64 16 126/72 100 07/03/16 00:00 64 07/02/16 22:00 73 07/02/16 20:00 68 07/02/16 20:00 98.5 68 20 133/87 99 07/02/16 18:00 63 07/02/16 16:00 67 07/02/16 16:00 98.8 67 20 145/81 98 07/02/16 14:00 66 07/02/16 12:00 98.8 62 14 152/81 100 07/02/16 12:00 68 07/03/16 07:00 Intake Total 2955 ml Output Total 2201 ml Balance 754 ml (Anusha Hastings) Review of Systems/Exam Exam He is alert, following few simple commands. Smiling. . Speech is fluent but confused. follows few simple commands. EVD site is intact, and clean CN: pupils 3 mm equal, EOMs intact, no nystagmus. facial appears symmetric at rest, tongue protrude midline Motor: moves grossly all four extremities symmetrically to command, on upper extremity restraints and hand mittens (Anusha Hastings) Medications Current Medications Current Medications Medications (Trade) Dose Ordered Sig/Paula Route PRN Reason Start Time Stop Time Status Last Admin Dose Admin Naloxone HCl (Narcan Inj) 0.4 mg UNSCH PRN IV SEE LABEL COMMENTS 05/29/16 15:00 Acetaminophen/ Butalbital/ Caffeine (Fioricet 325-50-40) 1 tab Q6H PRN PO PAIN GREATER THAN 5 or headach 05/29/16 15:00 07/03/16 08:56 Heparin Sodium (Porcine) (Heparin Inj) 5,000 units Q12HR SQ 05/29/16 21:00 07/03/16 08:06 Levetriacetam (Keppra) 500 mg Q12HR PO 05/29/16 21:00 07/03/16 08:09 Morphine Sulfate (Morphine Inj) 2 mg Q3H PRN IV PUSH BREAKTHROUGH PAIN 06/02/16 10:30 07/03/16 10:14 Diphenhydramine HCl (Benadryl 2% Cream) 1 applic TID PRN TOPICAL ITCHING 06/02/16 11:15 IV Flush (NS Flush) 2 ml UNSCH PRN IV FLUSH FLUSH AFTER USING IV ACCESS 06/03/16 09:45 IV Flush (NS Flush) 2 ml BID IV FLUSH 06/03/16 21:00 07/03/16 08:10 Acetaminophen (Tylenol) 650 mg Q6H PRN PO FEVER >100F 06/03/16 09:45 06/22/16 09:11 Ondansetron HCl (Zofran Inj) 4 mg Q6H PRN IV NAUSEA OR VOMITING 06/03/16 09:45 07/03/16 05:32 Docusate Sodium (Colace) 100 mg BID PO 06/03/16 21:00 07/02/16 20:09 Sennosides (Senokot) 17.2 mg BID PO 06/03/16 09:45 07/02/16 20:09 Miscellaneous Information 1 Q361D XX 06/03/16 09:45 Chlorhexidine Gluconate (Chlorhexidine 2% Cloth) Taper DAILY@04 TOP 06/04/16 04:00 05/31/17 03:59 06/25/16 04:00 Chlorhexidine Gluconate 3 pack 3 pack UNSCH PRN TOP HYGIENIC CARE 06/03/16 09:45 Sodium Chloride (NS 1000 ml Inj) 1,000 ml @ 100 mls/hr Q10H IV 06/03/16 21:16 Hold 06/05/16 22:23 Famotidine (Pepcid) 20 mg BID NG 06/04/16 09:00 07/03/16 08:06 Metoprolol Tartrate (Lopressor) 12.5 mg Q12HR PO 06/05/16 21:00 07/03/16 08:07 Quetiapine Fumarate (SEROquel) 25 mg BID PO 06/06/16 09:00 07/03/16 08:07 Loperamide HCl (Imodium Liq) 2 mg UNSCH PRN TUBE DIARRHEA 06/06/16 16:15 07/03/16 08:07 Hydrocortisone Sodium Succinate 25 mg 25 mg Q24H PRN IV PRE-MED PRIOR TO AMPHOTERCIN B 06/11/16 17:00 06/30/16 09:54 Potassium Chloride 100 ml @ 50 mls/hr Q2H PRN IV For Potassium 2.8 - 3.2 mEq/L 06/12/16 07:15 06/23/16 09:43 Potassium Chloride (KCl 20 Meq Premix Inj) 100 ml @ 50 mls/hr Q2H PRN IV For Potassium 2.8 - 3.2 mEq/L 06/12/16 07:15 06/26/16 11:32 Potassium Chloride 40 meq 40 meq UNSCH PRN PO/TUBE For Potassium 3.3 - 3.5 mEq/L 06/12/16 07:15 06/28/16 06:33 Potassium Chloride 100 ml @ 25 mls/hr UNSCH PRN IV For Potassium 3.3 - 3.5 mEq/L 06/12/16 07:15 Potassium Chloride 100 ml @ 50 mls/hr Q2H PRN IV For Potassium 3.3 - 3.5 mEq/L 06/12/16 07:15 06/26/16 09:24 Magnesium Sulfate/ Sodium Chloride (Magnesium Sulfate Inj/NS Inj) 100 ml @ 50 mls/hr UNSCH PRN IV For Magnesium 0.9 - 1.1 mg/dL 06/12/16 07:15 Magnesium Oxide 800 mg 800 mg UNSCH PRN PO For Magnesium 1.2 - 1.6 mg/dL 06/12/16 07:15 Magnesium Sulfate/ Sodium Chloride (Magnesium Sulfate Inj/NS Inj) 100 ml @ 50 mls/hr UNSCH PRN IV For Magnesium 1.2 - 1.6 mg/dL 06/12/16 07:15 Potassium Phosphate 2000 mg 2,000 mg Q4H PRN PO For Phosphorus < 2.5 mg/dL 06/12/16 07:15 Sodium Phosphate/ Sodium Chloride (Sodium Phosphate Inj/NS 250 ml Inj) 250 ml @ 42 mls/hr UNSCH PRN IV For Phosphorus < 2.5 mg/dL 06/12/16 07:15 Potassium Chloride (KCl 40 Meq/30 ml Liq) 40 meq UNSCH PRN PO/TUBE SEE LABEL COMMENTS 06/12/16 07:15 Potassium Phosphate 2000 mg 2,000 mg UNSCH PRN PO/TUBE SEE LABEL COMMENTS 06/12/16 07:15 Potassium Phosphate/Sodium Chloride (Potassium Phosphate Inj/NS 250 ml Inj) 260 ml @ 42 mls/hr UNSCH PRN IV SEE LABEL COMMENTS 06/12/16 07:15 IV Flush (NS Flush) See Protocol DAILY IVF 06/23/16 09:00 07/03/16 08:10 IV Flush (NS Flush) See Protocol UNSCH PRN IVF SEE PROTOCOL TABLE 06/22/16 12:30 IV Flush See Protocol UNSCH PRN IVF SEE PROTOCOL TABLE 06/22/16 12:30 Fluconazole/ Sodium Chloride 400 ml @ 200 mls/hr Q24H IV 06/22/16 14:00 07/02/16 13:27 Fluconazole/ Sodium Chloride (Diflucan 400 Mg Premix Bag) 400 ml @ 200 mls/hr Q24H IV 06/23/16 16:00 07/02/16 16:19 Thiamine HCl (Vitamin B1) 100 mg DAILY PO 06/28/16 09:00 07/03/16 08:07 Water (Free Water) 50 ml Q6HR PEG 06/28/16 12:00 07/03/16 06:00 Diphenhydramine HCl (Benadryl Inj) 25 mg Q6HR PRN IV pruritis 07/03/16 12:00 Polyethylene Glycol (Miralax) 17 gm Q12H PO 07/03/16 20:00 Metoclopramide HCl (Reglan Inj) 5 mg Q8HR IV PUSH 07/03/16 14:00 07/08/16 13:59 (Anusha Hastings) Medical Decision Making MDM Remarks 55 y/o male s/p posterior fossa craniectomy for evacuation of cerebellar bleed due to AVM with embolization at [facility] s/p ventriculostomy placement for CSF leak, 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 I reviewed and agree with the findings presented. I attest that I had a [id number] encounter with the patient on the same day, and personally performed and documented my assessment and findings in the medical record. (John Flowers MD) Anusha Hastings Jul 03, 2016 11:40 John Flowers MD Jul 03, 2016 20:43
[2016-07-03] MEDS ORDERED: diphenhydrAMINE HCL 50 MG/ML VIAL IV PRN (12:00)
--- NOTE | 2016-07-03 14:45 | HHI.IDPN ---
Subjective Subjective Remarks is a 55 y/o CM with AVM s/p coiling. ID following for Candidas ventriculitis Overnight events reviewed. No rash No diarrhea Awake, mumbles. Wants to be left alone. No seizures. Antibiotics Diflucan IV Ampho Intra Ventricular. Lines Line sites with no e/o infection Past Medical History AVM s/p coil Allergies: Coded Allergies: Oxycodone (Unverified Allergy, Intermediate, ITCHY, 01/16/16) Objective . Vital Signs Date Time Temp Pulse Resp B/P Pulse Ox O2 Delivery O2 Flow Rate FiO2 07/03/16 10:19 15 07/03/16 10:00 62 07/03/16 09:56 20 07/03/16 08:00 98.8 68 25 144/81 96 07/03/16 08:00 65 07/03/16 06:00 73 07/03/16 04:00 98.2 68 14 131/68 99 07/03/16 04:00 68 07/03/16 02:00 64 07/03/16 00:00 98.3 64 16 126/72 100 07/03/16 00:00 64 07/02/16 22:00 73 07/02/16 20:00 68 07/02/16 20:00 98.5 68 20 133/87 99 07/02/16 18:00 63 07/02/16 16:00 67 07/02/16 16:00 98.8 67 20 145/81 98 07/02/16 07/02/16 07/03/16 14:59 22:59 06:59 Intake Total 1381 ml 919 ml 655 ml Output Total 800 ml 850 ml 551 ml Balance 581 ml 69 ml 104 ml Intake Oral 120 ml 120 ml 0 ml IV Total 782 ml 427 ml 144 ml Tube Feeding 254 ml 252 ml 391 ml Tube Irrigant 25 ml 120 ml 120 ml Other 200 ml Output Urine Total 800 ml 850 ml 550 ml Emesis 1 ml Drainage Total 0 ml 0 ml 0 ml # Bowel Movements 0 0 0 . Laboratory Tests Test 07/02/16 07/03/16 04:48 03:52 White Blood Count 5.1 TH/MM3 5.3 TH/MM3 Red Blood Count 3.28 MIL/MM3 3.16 MIL/MM3 Hemoglobin 9.9 GM/DL 9.5 GM/DL Hematocrit 29.2 % 28.1 % Mean Corpuscular Volume 89.2 FL 89.0 FL Mean Corpuscular Hemoglobin 30.2 PG 30.2 PG Mean Corpuscular Hemoglobin 33.9 % 33.9 % Concent Red Cell Distribution Width 13.8 % 13.9 % Platelet Count 215 TH/MM3 201 TH/MM3 Mean Platelet Volume 8.3 FL 8.2 FL Neutrophils (%) (Auto) 58.7 % 65.8 % Lymphocytes (%) (Auto) 28.3 % 22.2 % Monocytes (%) (Auto) 7.9 % 8.0 % Eosinophils (%) (Auto) 3.7 % 3.3 % Basophils (%) (Auto) 1.4 % 0.7 % Neutrophils # (Auto) 3.0 TH/MM3 3.5 TH/MM3 Lymphocytes # (Auto) 1.4 TH/MM3 1.2 TH/MM3 Monocytes # (Auto) 0.4 TH/MM3 0.4 TH/MM3 Eosinophils # (Auto) 0.2 TH/MM3 0.2 TH/MM3 Basophils # (Auto) 0.1 TH/MM3 0.0 TH/MM3 CBC Comment DIFF FINAL DIFF FINAL Differential Comment Laboratory Tests Test 07/01/16 07/02/16 07/03/16 17:45 04:48 03:52 Total Bilirubin 0.1 MG/DL 0.2 MG/DL 0.2 MG/DL Direct Bilirubin LESS THAN 0.1 MG/DL Indirect Bilirubin 0.0 MG/DL Aspartate Amino Transf 11 U/L 9 U/L 8 U/L (AST/SGOT) Alanine Aminotransferase 29 U/L 30 U/L 27 U/L (ALT/SGPT) Alkaline Phosphatase 84 U/L 93 U/L 92 U/L Total Protein 5.5 GM/DL 5.7 GM/DL 5.7 GM/DL Albumin 2.4 GM/DL 2.6 GM/DL 2.6 GM/DL Amylase Level 43 U/L Lipase 141 U/L Sodium Level 144 MEQ/L 142 MEQ/L Potassium Level 3.7 MEQ/L 3.6 MEQ/L Chloride Level 105 MEQ/L 103 MEQ/L Carbon Dioxide Level 32.7 MEQ/L 33.4 MEQ/L Anion Gap 6 MEQ/L 6 MEQ/L Blood Urea Nitrogen 15 MG/DL 14 MG/DL Creatinine 0.76 MG/DL 0.70 MG/DL Estimat Glomerular Filtration 107 ML/MIN 118 ML/MIN Rate Random Glucose 94 MG/DL 92 MG/DL Calcium Level 8.7 MG/DL 8.5 MG/DL Imaging Last Impressions Head CT 06/10/16 0600 Signed Impressions: Service Date/Time: Friday, June 10, 2016 05:01 - CONCLUSION: 1. 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 Locules of air within the fluid are decreasing since June 08. Right frontal ventriculostomy tube remains present with stable ventricular size. No hydrocephalus. Kirk Cortes MD Physical Exam GENERAL: Thin built, well-developed patient, in no apparent distress. SKIN: No rashes. Cool and dry. HEAD: Surgical site with no e/o infection. Ventric site with no gross e/o infection. EYES: Pupils equal round and reactive. Extraocular motions intact. ENT: Nose without bleeding, purulent drainage or septal hematoma. Throat without erythema, tonsillar hypertrophy or exudate. Uvula midline. Airway patent. NECK: Trachea midline.Supple, nontender, neck not very supple. Some stiffness towards end on flexion. ? patient reliability. CARDIOVASCULAR: Regular rate and rhythm. No murmur appreciated. RESPIRATORY: Clear to auscultation. Breath sounds equal bilaterally. No wheezes , rales, or rhonchi. GASTROINTESTINAL: Abdomen soft, non-tender, nondistended. MUSCULOSKELETAL: Extremities without clubbing, cyanosis, or edema. No joint tenderness, effusion, or edema noted. NEUROLOGICAL: Awake and alert. Responds to questions not appropriate all the times. Moves all 4 extremities. Psych: cooperative IV line sites with no e/o infection. Assessment & Plan Remarks Hermila albicans ventriculitis. MRI cannot be performed due to coils. CSF fluid was very cloudy and had fungal sediments. 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 E.faecalis bacteremia: No central lines or PIVs. Treated. Repeat BCX negative. SIRS/Sepsis now controlled since Vanco IV started. AVM was transferred to [facility] for further treatment of the AVM by embolization followed by suboccipital craniotomy for hematoma evacuation and AVM resection. CSF leak and hydrocephalus s/p Rt sima hole and Ventriculostomy catheter placement 06/03/2016. s/p PICC placement. Recs: Discontinue Intra Venous amphotericin Liposomal. Continue Diflucan 800 mg IV every 24 hours. DC'ed Intraventricular Amphotericin instillation. 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 CSF gram stain and culture CSF AFB stain and culture CSF fungal stain and culture. Maryann Melendez and Anusha Hastings. If counts better please ask covering ID for clearance for RET[employer] FI[employer] MERCH[employer] shunt. I will be OOT from 07/04/16 to 07/23/2016. Other ID MDs covering for me. Jenifer Babin MD Jul 03, 2016 14:45
[2016-07-03] MEDS: FLUCONAZOLE 400 MG PREMIX BAG 400 ML IV SCH ×2 (14:56→16:28)
[2016-07-03] MEDS: METOCLOPRAMIDE HCL 10 MG/2 ML VIAL IV PUSH SCH ×2 (14:57→20:59)
[2016-07-04] VITALS (13 sets, daily range): BP systolic 108–163; BP diastolic 66–80; PULSE 58–77; RESP 12–20; TEMP 98.1–98.9; O2SAT 96–100
[2016-07-04] MEDS: CHLORHEXIDINE GLUCONATE 2 % 1 PACK (2 CLOTHS) TOP SCH (04:00)
[2016-07-04] MEDS: ACETAMIN 325 MG/BUTALBITAL 50 MG/CAFFEINE 40 MG TAB PO PRN ×2 (05:03→15:31)
[2016-07-04] MEDS: FREE WATER PEG SCH ×4 (05:03→17:40)
[2016-07-04] MEDS: METOCLOPRAMIDE HCL 10 MG/2 ML VIAL IV PUSH SCH ×3 (05:03→20:42)
--- NOTE | 2016-07-04 06:07 | RADRPT ---
EXAM DATE/TIME: 07/04/2016 04:27 [place] COMPARISON: CT BRAIN W/O CONTRAST, June 10, 2016, 5:01. INDICATIONS : Evaluate hydrocephalus. RADIATION DOSE: 56.35 CTDIvol (mGy) MEDICAL HISTORY : Carcinoma, rectal. SURGICAL HISTORY : Craniotomy. ENCOUNTER: Subsequent ACUITY: 1 month PAIN SCALE: Non-responsive LOCATION: cranial TECHNIQUE: Multiple contiguous axial images were obtained of the head. Using automated exposure control and adj ustment of the mA and/or kV according to patient size, radiation dose was kept as low as reasonably a chievable to obtain optimal diagnostic quality images. FINDINGS: CEREBRUM: Right frontal ventriculostomy catheter with tip in the region of third ventricle. Ventricles are slig htly more dilated when compared to previous study. Third ventricle measures 9 mm and previously measu red 6 mm. Minimal pneumocephaly in the right frontal horn. The ventricles are normal for age. No rosa maria dence of midline shift, mass lesion, hemorrhage or acute infarction. POSTERIOR FOSSA: Postsurgical changes with partial removal of the left cerebellum. Adjacent coils are again noted. Flu id collection in the operative bed has increased in size now measuring 7.0 x 4.2 cm. The 4th ventricl e is midline. The cerebellopontine angle is unremarkable. EXTRACRANIAL: The visualized portion of the orbits is intact. SKULL: Occipital craniectomy. CONCLUSION: 1. Postoperative changes in the left cerebellum with multiple coils again seen. 2. The fluid collection in the postoperative bed has increased in size now measuring 7.0 x 4.2 cm. 3. The ventricles are mildly dilated when compared to previous study. 4. Right frontal ventriculostomy catheter is unchanged in position. Altaf Alfaro MD on July 04, 2016 at 5:59 Board Certified Radiologist. This report was verified electronically.
[2016-07-04] MEDS: FAMOTIDINE 20 MG TAB NG SCH ×2 (08:16→20:41)
[2016-07-04] MEDS: POLYETHYLENE GLYCOL 17 GM PKG PO SCH ×2 (08:16→20:41)
[2016-07-04] MEDS: THIAMINE HCL 100 MG TAB PO SCH (08:16)
[2016-07-04] MEDS: HEPARIN SODIUM - SQ 10,000 UNITS/ML VIAL SQ SCH ×2 (08:16→20:42)
[2016-07-04] MEDS: QUEtiapine FUMARATE 25 MG TAB PO SCH ×2 (08:16→20:42)
[2016-07-04] MEDS: DOCUSATE SODIUM 100 MG CAP PO SCH ×2 (08:16→20:43)
[2016-07-04] MEDS: METOPROLOL TARTRATE 25 MG TAB PO SCH ×2 (08:16→20:42)
[2016-07-04] MEDS: SENNOSIDES 8.6 MG TAB PO SCH ×2 (08:16→20:41)
[2016-07-04] MEDS: levETIRAcetam 500 MG TAB PO SCH ×2 (08:16→20:42)
[2016-07-04] MEDS: SODIUM CHLORIDE 0.9% FLUSH 5 ML FLUSH IV FLUSH SCH ×2 (08:17→20:41)
--- NOTE | 2016-07-04 09:20 | HHI.NSPN ---
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 The patient underwent placement of right frontal external ventricular drain for acute hydrocephalus and was transferred to [facility] for further treatment of the AVM by embolization followed by suboccipital craniotomy for hematoma evacuation, and AVM resection at [facility] . Postoperatively, he was slow to wake up, his EVD was Clamped and removed at [facility] and his mental status was improving. He had UTI and agitation. He was started on Rocephin and Seroquel. The patient was being transferred back to [facility] due to confusion and CSF leak. 06/04: s/p placement of ventriculostomy drain. no further leaking noted from posterior fossa wound, there has been scab formation also. 06/05: no wound leak seen 06/06: appears more awake today, wound dry, no evidence of CSF leaking overnight 06/09: wound dry, sitting up in chair eating breakfast 06/10: follow up CT Brain reviewed 06/11: prelim CSF testing shows elevated WBCs, proteins with low glucose, 06/12: CSF showing fungal growth, intraventricular ampho b ordered 06/13: EVD draining, no significant changes to neuro checks overnight 06/16: neuro checks stable overnight, alert, pleasantly confused today 06/17: intermittently confused, working with PT, repeat CSF cx pending 06/18: intermittent complaints of headaches yesterday, currently denies HAs, moves all four extremities, reported no allergic type rx following administration of intraventric ampho 06/19: reported SCHULTZ following ampho b adminstration that resolves, no changed in mental status or neuro checks 06/20: pleasantly confused, neuro checks stable overnight. 06/23: sitting up in chair, stably confused. 06/24: repeat CSF fungal stain neg, cultures pending 06/25: about to sit up in chair for breakfast, only transferring short distance from bed to chair and he is reported to still be quite ataxic. Final fungal smear reports no fungal elements seen. 06/26: denies headaches, feels his head is clearer 06/27: room moved to across nursing station, requesting milkshake for breakfast. 06/28: stable neuro checks, denies headaches, stably confused, follows simple commands 06/29: doing well, unchanged overnight 07/02: challenging EVD, minimal output at 10 cm H20, neuro checks stable. Intraventric ampho dc'ed per ID 07/03: mental status reported to be unchanged, had vomited once yesterday 07/04: EVD clamped since yesterday, f/u CT Brain completed this am, no change in his neuro checks, remains alert, stably confused, sitting up in stretcher chair and working with PT (Anusha Hastings) Labs, Micro, & Vital Signs Results Date Time Temp Pulse Resp B/P Pulse Ox O2 Delivery O2 Flow Rate FiO2 07/04/16 06:00 72 07/04/16 04:00 62 07/04/16 04:00 98.3 62 20 163/72 99 07/04/16 02:00 60 07/04/16 00:00 60 07/04/16 00:00 98.2 60 20 108/66 98 07/03/16 22:00 60 07/03/16 20:00 98.3 62 16 156/78 97 07/03/16 20:00 62 07/03/16 18:00 63 07/03/16 16:00 98.6 61 15 129/72 100 07/03/16 16:00 61 07/03/16 14:00 59 07/03/16 12:00 98.7 59 14 105/56 98 07/03/16 12:00 59 07/03/16 10:19 15 07/03/16 10:00 62 07/03/16 09:56 20 07/04/16 07:00 Intake Total 1986 ml Output Total 1875 ml Balance 111 ml Constitutional Vital Signs Date Time Temp Pulse Resp B/P Pulse Ox O2 Delivery O2 Flow Rate FiO2 07/04/16 06:00 72 07/04/16 04:00 62 07/04/16 04:00 98.3 62 20 163/72 99 07/04/16 02:00 60 07/04/16 00:00 60 07/04/16 00:00 98.2 60 20 108/66 98 07/03/16 22:00 60 07/03/16 20:00 98.3 62 16 156/78 97 07/03/16 20:00 62 07/03/16 18:00 63 07/03/16 16:00 98.6 61 15 129/72 100 07/03/16 16:00 61 07/03/16 14:00 59 07/03/16 12:00 98.7 59 14 105/56 98 07/03/16 12:00 59 07/03/16 10:19 15 07/03/16 10:00 62 07/03/16 09:56 20 07/04/16 07:00 Intake Total 1986 ml Output Total 1875 ml Balance 111 ml (Anusha Hastings) Review of Systems/Exam Exam He is alert, following few simple commands. Smiling. Speech is fluent but confused. follows few simple commands. EVD site is intact, and clean, CSF clear slightly cloudy with some debris, Posterior fossa wound is dry, healing well, no signs of infection CN: pupils 3 mm equal, EOMs intact, no nystagmus. facial appears symmetric at rest, tongue protrude midline Motor: moves grossly all four extremities symmetrically to command, on upper extremity restraints and hand mittens Sensory: intact to light touch x 4 DTRs 2+ b/l Cerebellar: attempting heel to hyman, difficulty with exam due to cognition (Anusha Hastings) Medications Current Medications Current Medications Medications (Trade) Dose Ordered Sig/Paula Route PRN Reason Start Time Stop Time Status Last Admin Dose Admin Naloxone HCl (Narcan Inj) 0.4 mg UNSCH PRN IV SEE LABEL COMMENTS 05/29/16 15:00 Acetaminophen/ Butalbital/ Caffeine (Fioricet 325-50-40) 1 tab Q6H PRN PO PAIN GREATER THAN 5 or headach 05/29/16 15:00 07/04/16 05:03 Heparin Sodium (Porcine) (Heparin Inj) 5,000 units Q12HR SQ 05/29/16 21:00 07/04/16 08:16 Levetriacetam (Keppra) 500 mg Q12HR PO 05/29/16 21:00 07/04/16 08:16 Morphine Sulfate (Morphine Inj) 2 mg Q3H PRN IV PUSH BREAKTHROUGH PAIN 06/02/16 10:30 07/03/16 10:14 Diphenhydramine HCl (Benadryl 2% Cream) 1 applic TID PRN TOPICAL ITCHING 06/02/16 11:15 IV Flush (NS Flush) 2 ml UNSCH PRN IV FLUSH FLUSH AFTER USING IV ACCESS 06/03/16 09:45 IV Flush (NS Flush) 2 ml BID IV FLUSH 06/03/16 21:00 07/04/16 08:17 Acetaminophen (Tylenol) 650 mg Q6H PRN PO FEVER >100F 06/03/16 09:45 06/22/16 09:11 Ondansetron HCl (Zofran Inj) 4 mg Q6H PRN IV NAUSEA OR VOMITING 06/03/16 09:45 07/03/16 05:32 Docusate Sodium (Colace) 100 mg BID PO 06/03/16 21:00 07/04/16 08:16 Sennosides (Senokot) 17.2 mg BID PO 06/03/16 09:45 07/04/16 08:16 Miscellaneous Information 1 Q361D XX 06/03/16 09:45 Chlorhexidine Gluconate (Chlorhexidine 2% Cloth) Taper DAILY@04 TOP 06/04/16 04:00 05/31/17 03:59 06/25/16 04:00 Chlorhexidine Gluconate 3 pack 3 pack UNSCH PRN TOP HYGIENIC CARE 06/03/16 09:45 Sodium Chloride (NS 1000 ml Inj) 1,000 ml @ 100 mls/hr Q10H IV 06/03/16 21:16 Hold 06/05/16 22:23 Famotidine (Pepcid) 20 mg BID NG 06/04/16 09:00 07/04/16 08:16 Metoprolol Tartrate (Lopressor) 12.5 mg Q12HR PO 06/05/16 21:00 07/04/16 08:16 Quetiapine Fumarate (SEROquel) 25 mg BID PO 06/06/16 09:00 07/04/16 08:16 Loperamide HCl (Imodium Liq) 2 mg UNSCH PRN TUBE DIARRHEA 12/2/16 16:15 07/03/16 14:57 Hydrocortisone Sodium Succinate 25 mg 25 mg Q24H PRN IV PRE-MED PRIOR TO AMPHOTERCIN B 06/11/16 17:00 06/30/16 09:54 Potassium Chloride 100 ml @ 50 mls/hr Q2H PRN IV For Potassium 2.8 - 3.2 mEq/L 06/12/16 07:15 06/23/16 09:43 Potassium Chloride (KCl 20 Meq Premix Inj) 100 ml @ 50 mls/hr Q2H PRN IV For Potassium 2.8 - 3.2 mEq/L 06/12/16 07:15 06/26/16 11:32 Potassium Chloride 40 meq 40 meq UNSCH PRN PO/TUBE For Potassium 3.3 - 3.5 mEq/L 06/12/16 07:15 06/28/16 06:33 Potassium Chloride 100 ml @ 25 mls/hr UNSCH PRN IV For Potassium 3.3 - 3.5 mEq/L 06/12/16 07:15 Potassium Chloride 100 ml @ 50 mls/hr Q2H PRN IV For Potassium 3.3 - 3.5 mEq/L 06/12/16 07:15 06/26/16 09:24 Magnesium Sulfate/ Sodium Chloride (Magnesium Sulfate Inj/NS Inj) 100 ml @ 50 mls/hr UNSCH PRN IV For Magnesium 0.9 - 1.1 mg/dL 06/12/16 07:15 Magnesium Oxide 800 mg 800 mg UNSCH PRN PO For Magnesium 1.2 - 1.6 mg/dL 06/12/16 07:15 Magnesium Sulfate/ Sodium Chloride (Magnesium Sulfate Inj/NS Inj) 100 ml @ 50 mls/hr UNSCH PRN IV For Magnesium 1.2 - 1.6 mg/dL 06/12/16 07:15 Potassium Phosphate 2000 mg 2,000 mg Q4H PRN PO For Phosphorus < 2.5 mg/dL 06/12/16 07:15 Sodium Phosphate/ Sodium Chloride (Sodium Phosphate Inj/NS 250 ml Inj) 250 ml @ 42 mls/hr UNSCH PRN IV For Phosphorus < 2.5 mg/dL 06/12/16 07:15 Potassium Chloride (KCl 40 Meq/30 ml Liq) 40 meq UNSCH PRN PO/TUBE SEE LABEL COMMENTS 06/12/16 07:15 Potassium Phosphate 2000 mg 2,000 mg UNSCH PRN PO/TUBE SEE LABEL COMMENTS 06/12/16 07:15 Potassium Phosphate/Sodium Chloride (Potassium Phosphate Inj/NS 250 ml Inj) 260 ml @ 42 mls/hr UNSCH PRN IV SEE LABEL COMMENTS 06/12/16 07:15 IV Flush (NS Flush) See Protocol DAILY IVF 06/23/16 09:00 07/03/16 08:10 IV Flush (NS Flush) See Protocol UNSCH PRN IVF SEE PROTOCOL TABLE 06/22/16 12:30 IV Flush See Protocol UNSCH PRN IVF SEE PROTOCOL TABLE 06/22/16 12:30 Fluconazole/ Sodium Chloride 400 ml @ 200 mls/hr Q24H IV 06/22/16 14:00 07/03/16 14:56 Fluconazole/ Sodium Chloride (Diflucan 400 Mg Premix Bag) 400 ml @ 200 mls/hr Q24H IV 06/23/16 16:00 07/03/16 16:28 Thiamine HCl (Vitamin B1) 100 mg DAILY PO 06/28/16 09:00 07/04/16 08:16 Water (Free Water) 50 ml Q6HR PEG 06/28/16 12:00 07/04/16 05:03 Diphenhydramine HCl (Benadryl Inj) 25 mg Q6HR PRN IV pruritis 07/03/16 12:00 07/03/16 14:53 Polyethylene Glycol (Miralax) 17 gm Q12H PO 07/03/16 20:00 07/04/16 08:16 Metoclopramide HCl (Reglan Inj) 5 mg Q8HR IV PUSH 07/03/16 14:00 07/08/16 13:59 07/04/16 05:03 (Anusha Hastings) Medical Decision Making MDM Remarks 55 y/o male s/p posterior fossa craniectomy for evacuation of cerebellar bleed due to AVM with embolization at [facility] s/p ventriculostomy placement for CSF leak, resolved CSF leak ventriculitis with growth of Hermila, replacement of ventriculostomy drain , started intraventricular Ampho B tx 06/12/16, completed repeat CSF culture 06/23 shows no fungal elements (Anusha Hastings) Plan Plan Remarks CT Brain this am reviewed, increase in seroma and with dilated ventricles reopen ventriculostomy drain to 5 cm H20, neuro examination remains unchanged may need ventriculoperitoneal shunt when cleared by ID (Anusha Hastings) Attending Statement The exam, history, and the medical decision-making described in the above note were completed with the assistance of the mid-level provider. I reviewed and agree with the findings presented. I attest that I had a [id number] encounter with the patient on the same day, and personally performed and documented my assessment and findings in the medical record. (John Flowers MD) Anusha Hastings Jul 04, 2016 09:20 John Flowers MD Jul 05, 2016 22:11
--- NOTE | 2016-07-04 13:42 | HHI.CCPN ---
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 The patient underwent placement of right frontal external ventricular drain for acute hydrocephalus and was transferred to [facility] for further treatment of the AVM by embolization followed by suboccipital craniotomy for hematoma evacuation and AVM resection. Postoperatively, he was slow to wake up, his EVD was Clamped and removed and his mental status was improving. Other complications include the UTI and agitation. He was started on Rocephin and Seroquel. The patient is being transferred back to [facility] due to confusion and CSF leak. EVD was placed. He was found to have budding yeast, pseudohyphae in CSF and Enterococcus in blood. 06/30: Currently resting in bed in no acute distress with mittens and vest restraint. Afebrile. Tolerating diet. No bowel movement past 24 hours. 07/01: Resting in bed in no acute distress. Very verbal this morning. Afebrile. No bowel movement this morning. 07/02: Afebrile. 2 episodes of emesis yesterday since resolved. Denies abdominal pain. Tolerating tube feeding. One bowel movement. 07/03: Afebrile. One emesis overnight. KUB unremarkable liver function tests within normal limits. Denies nausea right now. Complaining of itchiness. Subjective 07/04: Resting in bed. Ventriculostomy currently at -5 [address]. Noted on CT shows increase of fluid collection in the left cerebellar postoperative changed somewhat 4.2 cm. Ventricles specific fourth are mildly enlarged. Will need [employer] shunt once infection clear. Objective Vital Signs Date Time Temp Pulse Resp B/P Pulse Ox O2 Delivery O2 Flow Rate FiO2 07/04/16 12:00 98.9 60 12 114/74 99 07/04/16 09:54 21 Intake and Output 07/03/16 07/03/16 07/04/16 08:00 16:00 00:00 Intake Total 655 ml 447 ml 931 ml Output Total 551 ml 900 ml 475 ml Balance 104 ml -453 ml 456 ml Result Diagram: 07/03/16 0352 07/03/16 0352 Other Results Microbiology Date/Time Procedure Status Source Growth 12/26/16 09:30 Gram Stain - Final Complete Cerebral Spinal Fluid Shunt Fluid 06/30/16 09:30 CSF Culture - Final Complete Cerebral Spinal Fluid Shunt Fluid NO GROWTH IN 72 HOURS 06/30/16 09:30 Fungal Smear - Final Resulted Cerebral Spinal Fluid Shunt Fluid NO FUNGAL ELEMENTS SEEN. 06/30/16 09:30 Fungal Culture Resulted Cerebral Spinal Fluid Shunt Fluid Pending Imaging Last Impressions Head CT 07/04/16 0600 Signed Impressions: Service Date/Time: Monday, July 04, 2016 04:27 - CONCLUSION: 1. Postoperative changes in the left cerebellum with multiple coils again seen. 2. The fluid collection in the postoperative bed has increased in size now measuring 7.0 x 4.2 cm. 3. The ventricles are mildly dilated when compared to previous study. 4. Right frontal ventriculostomy catheter is unchanged in position. Altaf Alfaro MD Abdomen X-Ray 07/01/16 0000 Signed Impressions: Service Date/Time: Friday, July 01, 2016 17:33 - CONCLUSION: Benign abdomen. Probable PEG tube in place Don López MD Chest X-Ray 06/22/16 0000 Signed Impressions: Service Date/Time: Wednesday, June 22, 2016 12:54 - CONCLUSION: No acute cardiopulmonary disease identified. Tommy Ramirez MD ADDENDUM: There is a right arm PICC appropriately positioned, tip at the atriocaval junction. Brian Hu MD Objective Remarks GENERAL: 55-year-old male, critically ill currently resting in bed well to do SKIN: Warm and dry. No rash. HEAD: Dry posterior wound, clean, healing well. New right ventriculostomy placed 06/12. EVD draining 0 ml clear CSF in 24 hours at -20 cm H2O NECK: Supple. No thyromegaly lymphadenopathy or carotid bruits. CARDIOVASCULAR: RRR. S1, S2. Without murmurs or clicks, gallops or rubs. RESPIRATORY: Few mobile secretions, clear with cough. Air entry equal bilaterally GASTROINTESTINAL: Abdomen soft, non-tender, nondistended. Normoactive BS MUSCULOSKELETAL: Warm, well perfused. Neuro: Oriented to person. Pupils are equal bilaterally reactive. Moves all 4 extremities spontaneously. Conversant. follows commands. Line: PICC Side: Right Location: Antecubital A/P Problem List: (1) Hermila Ventriculitis Status: Acute (2) AVM (arteriovenous malformation) brain ICD Code: Q28.2 Status: Acute (3) Encephalopathy, traumatic ICD Code: F07.81 Status: Acute (4) UTI (urinary tract infection) ICD Code: N39.0 Status: Acute (5) Agitation ICD Code: R45.1 Status: Acute (6) Cerebellar hemorrhage ICD Code: I61.4 Status: Acute Assessment and Plan Neuro/Psych 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 - status post AVM embolization at [facility] followed by suboccipital craniotomy for hematoma evacuation and AVM resection - EVD wean per NSGY, possible removal today? - Neurochecks per ICU routine - Keppra 500 mg twice a day for seizure prophylaxis - Strict BP control CSF leak - repaired - EVD in place - wean per Neurosurgeon -possible removal today? - awaiting ID clearance Continue Seroquel 25 mg twice a day [facility] Hypertension - Metoprolol 12.5 milligrams Q12 hours - continue Telemetry RESP: Currently on room air. GI: Acute protein calorie malnutritionmild - Continue Jevity 1.5 goal 50 cc an hour with Reglan initiated for motility - mechanical soft diet - advance to regular as tolerated Colace/as needed Senokot for bowel regimen Pepcid for GI prophylaxis KUB 07/01 revealed nonspecific bowel gas pattern. : Condom catheter in place. HEME: Normocytic anemia - Does not meet transfusion triggers at this time. - Daily CBC ID: Hermila Ventriculitis - intraventricular Amphotericin B administration. Last dose 06/30 - systemic D/Gera - right ventriculostomy 06/03, replaced 06/12 - Continue systemic Diflucan 800 mg IV daily - management per ID - no growth on a sample 06/23 - repeat CSF on Thursday06/30/2016 no growth Enterococcus Bacteremia - Completed course of Vanc IV 06/24 Pertinent cultures Blood cultures 2 - 06/09 - Micrococcus/Enterococcus Faecium/coag negative staph CSF 06/10 and 06/12 - Hermila CSF - 06/30 - Gram stain/fungal cultures no growth Renal: Monitor urine output. Creatinine within normal limits FEN Hypernatremia - resolved - Na currently within normal limits - continue free water to 50cc every 6 - ICU electrolyte protocol Prophylaxis: GI Prophylaxis Pepcid 20 mg twice a day: DVT Prophylaxis - SCDs - Heparin subQ Level 2 Problem Qualifiers (1) UTI (urinary tract infection): (2) Cerebellar hemorrhage: Qualified Code: I61.4 - Nontraumatic intracerebral hemorrhage of cerebellum, unspecified laterality Darrick Dasilva MD Jul 04, 2016 13:42
[2016-07-04] MEDS: FLUCONAZOLE 400 MG PREMIX BAG 400 ML IV SCH ×2 (13:51→15:31)
[2016-07-05] VITALS (13 sets, daily range): BP systolic 129–153; BP diastolic 71–85; PULSE 56–78; RESP 11–21; TEMP 98.7–99.1; O2SAT 99–100
[2016-07-05] MEDS: CHLORHEXIDINE GLUCONATE 2 % 1 PACK (2 CLOTHS) TOP SCH (04:00)
[2016-07-05 04:35] LABS: HEMATOCRIT 28.9 % (39.0-51.0); MEAN CELL VOLUME 89.1 FL (80.0-100.0); MEAN CORPUSCULAR HGB CONC 33.7 % (32.0-36.0); PLATELET COUNT 187 TH/MM3 (150-450); RED BLOOD COUNT 3.25 MIL/MM3 (4.50-5.90); RED CELL DISTRIBUTION WIDTH 14.1 % (11.6-17.2); REVIEW FLAG FINAL; WHITE BLOOD COUNT 5.8 TH/MM3 (4.0-11.0)
[2016-07-05 04:56] LABS: ALT (GPT) 30 U/L (12-78); ANION GAP 8 MEQ/L (5-15); AST (GOT) 11 U/L (15-37); BICARBONATE 31.4 MEQ/L (21.0-32.0); BLOOD UREA NITROGEN 14 MG/DL (7-18); CHLORIDE 101 MEQ/L (98-107); GLOMERULAR FILTRATION RATE 105 ML/MIN (>89); POTASSIUM 3.7 MEQ/L (3.5-5.1); SODIUM (NA) 140 MEQ/L (136-145)
[2016-07-05 04:58] LABS: ALKALINE PHOSPHATASE 93 U/L (45-117); TOTAL BILIRUBIN ADULT 0.1 MG/DL (0.2-1.0)
[2016-07-05] MEDS: FREE WATER PEG SCH ×5 (05:28→23:41)
[2016-07-05] MEDS: METOCLOPRAMIDE HCL 10 MG/2 ML VIAL IV PUSH SCH ×3 (05:28→21:41)
[2016-07-05] MEDS: POLYETHYLENE GLYCOL 17 GM PKG PO SCH ×2 (08:00→20:00)
[2016-07-05] MEDS: THIAMINE HCL 100 MG TAB PO SCH (08:33)
[2016-07-05] MEDS: QUEtiapine FUMARATE 25 MG TAB PO SCH ×2 (08:33→20:04)
[2016-07-05] MEDS: FAMOTIDINE 20 MG TAB NG SCH ×2 (08:33→20:04)
[2016-07-05] MEDS: HEPARIN SODIUM - SQ 10,000 UNITS/ML VIAL SQ SCH ×2 (08:33→20:04)
[2016-07-05] MEDS: levETIRAcetam 500 MG TAB PO SCH ×2 (08:33→20:04)
[2016-07-05] MEDS: SODIUM CHLORIDE 0.9% FLUSH 5 ML FLUSH IV FLUSH SCH ×2 (08:34→20:04)
[2016-07-05] MEDS: DOCUSATE SODIUM 100 MG CAP PO SCH ×2 (08:34→20:04)
[2016-07-05] MEDS: SENNOSIDES 8.6 MG TAB PO SCH ×2 (08:34→20:05)
[2016-07-05] MEDS: METOPROLOL TARTRATE 25 MG TAB PO SCH ×2 (08:34→20:04)
--- NOTE | 2016-07-05 09:53 | HHI.NSPN ---
Subjective History 06/30/16 He is easily arousable, follows commands. He is oriented to the hospital but not to the name of the place or the date. He wound remains closed with a scab. His ICP is low as well as CSF drainage. The csf is slighly cloudy but has no blood. 07/05/16 The CSF is clear and he is alert. He has cognitive deficits and disinhibition but is able to follow commands. Vitals . Vital Signs Date Time Temp Pulse Resp B/P Pulse Ox O2 Delivery O2 Flow Rate FiO2 07/05/16 08:25 100 21 07/05/16 08:00 66 07/05/16 08:00 99.1 69 18 153/85 99 07/05/16 06:00 66 07/05/16 04:00 99.0 62 16 136/72 99 07/05/16 04:00 62 07/05/16 02:00 60 07/05/16 00:00 99.0 60 11 129/71 100 07/05/16 00:00 60 07/04/16 22:00 68 07/04/16 20:00 68 07/04/16 20:00 98.5 68 19 130/80 99 07/04/16 18:00 58 07/04/16 16:32 20 07/04/16 16:00 98.1 63 16 126/80 100 07/04/16 16:00 63 07/04/16 14:00 63 07/04/16 12:00 98.9 60 12 114/74 99 07/04/16 12:00 60 07/04/16 10:00 70 07/04/16 09:54 99 21 07/04/16 07/04/16 07/05/16 14:59 22:59 06:59 Intake Total 1071 ml 1047 ml 639 ml Output Total 810 ml 755 ml 854 ml Balance 261 ml 292 ml -215 ml Physical Exam Head Head: Incision (dry) Eyes Eyes: Pupils Equal Neuro Mental Status: Awake, Confused, Alert Pupils: Reactive Bilaterally (full EOMI with no parinaud) Lazaro Coma Scale Best Eye Openin - Spontaneous Best Verbal: 4 - Confused Best Motor: 6 - Obeys Total Glascow Coma Scale (GCS): 14 Cardiac Cardiac: Regular Rate & Rhythm Respiratory Respiratory: CTA Gastrointestinal Gastrointestinal: Soft Musculoskeletal Musculoskeletal: Moves all extrem with 5/5 strength Extremities Upper Extremities Deltoid Bicep Tricep HI W. Ext Right Left Lower Extremeties Ilio Quad Plantar Dorsi EHL Right Left Dermatologic Dermatologic: Skin Intact Extremities Edema: No Edema, SCDs Objective Labs Laboratory Tests 07/05/16 04:01 Laboratory Tests Test 07/05/16 04:01 Sodium Level 140 MEQ/L Potassium Level 3.7 MEQ/L Chloride Level 101 MEQ/L Carbon Dioxide Level 31.4 MEQ/L Anion Gap 8 MEQ/L Blood Urea Nitrogen 14 MG/DL Creatinine 0.77 MG/DL Estimat Glomerular Filtration 105 ML/MIN Rate Random Glucose 119 MG/DL Calcium Level 8.9 MG/DL Total Bilirubin 0.1 MG/DL Aspartate Amino Transf 11 U/L (AST/SGOT) Alanine Aminotransferase 30 U/L (ALT/SGPT) Alkaline Phosphatase 93 U/L Total Protein 6.0 GM/DL Albumin 2.7 GM/DL Assessment & Plan Diagnosis: (1) Hermila Ventriculitis Plan: Antibiotitcs completed, ready for VPS next week. (2) Encephalopathy, traumatic Plan: Complicated by ventriculitis, follow up CSF Thursday, shunt Thursday Critical Care Time (minutes): Moe Arzate Jul 05, 2016 09:53
--- NOTE | 2016-07-05 10:17 | HHI.CCPN ---
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 The patient underwent placement of right frontal external ventricular drain for acute hydrocephalus and was transferred to [facility] for further treatment of the AVM by embolization followed by suboccipital craniotomy for hematoma evacuation and AVM resection. Postoperatively, he was slow to wake up, his EVD was Clamped and removed and his mental status was improving. Other complications include the UTI and agitation. He was started on Rocephin and Seroquel. The patient is being transferred back to [facility] due to confusion and CSF leak. EVD was placed. He was found to have budding yeast, pseudohyphae in CSF and Enterococcus in blood. 06/30: Currently resting in bed in no acute distress with mittens and vest restraint. Afebrile. Tolerating diet. No bowel movement past 24 hours. 07/01: Resting in bed in no acute distress. Very verbal this morning. Afebrile. No bowel movement this morning. 07/02: Afebrile. 2 episodes of emesis yesterday since resolved. Denies abdominal pain. Tolerating tube feeding. One bowel movement. 07/03: Afebrile. One emesis overnight. KUB unremarkable liver function tests within normal limits. Denies nausea right now. Complaining of itchiness. 07/04: Resting in bed. Ventriculostomy currently at -5 cm [address]2O. Noted on CT shows increase of fluid collection in the left cerebellar postoperative changed somewhat 4.2 cm. Ventricles specific fourth are mildly enlarged. Will need BARKING MACHINE FEEDER shunt once infection clear. Subjective 07/05: Afebrile. Currently resting in bed with ventriculostomy at -5 seem H2O. Negative growth to date from CSF from 06/30. Currently complains of being "cold". Objective Vital Signs Date Time Temp Pulse Resp B/P Pulse Ox O2 Delivery O2 Flow Rate FiO2 07/05/16 10:00 78 07/05/16 08:25 100 21 07/05/16 08:00 99.1 18 153/85 Intake and Output 07/04/16 07/04/16 07/04/16 07:59 15:59 23:59 Intake Total 608 ml 1071 ml 1047 ml Output Total 500 ml 810 ml 755 ml Balance 108 ml 261 ml 292 ml Result Diagram: 07/05/16 0401 07/05/16 0401 Imaging Last Impressions Head CT 07/04/16 0600 Signed Impressions: Service Date/Time: Monday, July 04, 2016 04:27 - CONCLUSION: 1. Postoperative changes in the left cerebellum with multiple coils again seen. 2. The fluid collection in the postoperative bed has increased in size now measuring 7.0 x 4.2 cm. 3. The ventricles are mildly dilated when compared to previous study. 4. Right frontal ventriculostomy catheter is unchanged in position. Altaf Alfaro MD Abdomen X-Ray 07/01/16 0000 Signed Impressions: Service Date/Time: Friday, July 01, 2016 17:33 - CONCLUSION: Benign abdomen. Probable PEG tube in place Don López MD Chest X-Ray 06/22/16 0000 Signed Impressions: Service Date/Time: Wednesday, June 22, 2016 12:54 - CONCLUSION: No acute cardiopulmonary disease identified. Tommy Ramirez MD ADDENDUM: There is a right arm PICC appropriately positioned, tip at the atriocaval junction. Brian Hu MD Objective Remarks GENERAL: 55-year-old male, critically ill currently resting in bed well to do SKIN: Warm and dry. No rash. HEAD: Dry posterior wound, clean, healing well. New right ventriculostomy placed 06/12. EVD draining 0 ml clear CSF in 24 hours at -5 cm H2O NECK: Supple. No thyromegaly lymphadenopathy or carotid bruits. CARDIOVASCULAR: RRR. S1, S2. Without murmurs or clicks, gallops or rubs. RESPIRATORY: Few mobile secretions, clear with cough. Air entry equal bilaterally GASTROINTESTINAL: Abdomen soft, non-tender, nondistended. Normoactive BS MUSCULOSKELETAL: Warm, well perfused. Neuro: Oriented to person. Pupils are equal bilaterally reactive. Moves all 4 extremities spontaneously. Conversant. follows commands. 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 Will need BARKING MACHINE FEEDER shunt. CVS Hypertension - Metoprolol 12.5 milligrams Q12 hours - continue Telemetry RESP: Currently on room air. GI: Acute protein calorie malnutritionmild - Continue Jevity 1.5 goal 50 cc an hour with Reglan initiated for motility - mechanical soft diet - advance to regular as tolerated Colace/as needed Senokot for bowel regimen Pepcid for GI prophylaxis KUB 07/01 revealed nonspecific bowel gas pattern. : Condom catheter in place. HEME: Normocytic anemia - Does not meet transfusion triggers at this time. - Daily CBC ID: Hermila Ventriculitis - intraventricular Amphotericin B administration. Last dose 06/30 - systemic D/Gera - right ventriculostomy 06/03, replaced 06/12 - Continue systemic Diflucan 800 mg IV daily - management per ID - no growth on a sample 06/23 - repeat CSF on Thursday06/30/2016 no growth Enterococcus Bacteremia - Completed course of Vanc IV 06/24 Pertinent cultures Blood cultures 2 - 06/09 - Micrococcus/Enterococcus Faecium/coag negative staph CSF 06/10 and 06/12 - Hermila CSF - 06/30 - Gram stain/fungal cultures no growth Renal: Monitor urine output. Creatinine within normal limits FEN Hypernatremia - resolved - Na currently within normal limits - continue free water to 50cc every 6 - ICU electrolyte protocol Prophylaxis: GI Prophylaxis Pepcid 20 mg twice a day: DVT Prophylaxis - SCDs - Heparin subQ Level 2 Problem Qualifiers (1) UTI (urinary tract infection): (2) Cerebellar hemorrhage: Qualified Code: I61.4 - Nontraumatic intracerebral hemorrhage of cerebellum, unspecified laterality Darrick Dasilva MD Jul 05, 2016 10:16
--- NOTE | 2016-07-05 12:45 | RADRPT ---
EXAM DATE/TIME: 07/05/2016 11:28 [place] COMPARISON: No previous studies available for comparison. INDICATIONS : Swelling. MEDICAL HISTORY : Carcinoma, rectal. Ruptured AVM. Chemotherapy and radiation. SURGICAL HISTORY : Rectal mass resection. Craniotomy. ENCOUNTER: Initial ACUITY: 1 day PAIN SCORE: Non-responsive LOCATION: Bilateral leg. TECHNIQUE: Venous ultrasound of the left and right leg was performed from the inguinal ligament to the proximal calf. Real-time, color Doppler and spectral tracing, compression and augmentation techniques were us ed. FINDINGS: RIGHT LEG: There is normal compressibility of the deep venous system from the inguinal region to the proximal ca lf. No echogenic clot is seen in the lumen of the common femoral, femoral, popliteal, and posterior tibial veins. There is a normal response of the venous system to proximal and distal augmentation an d respiration. LEFT LEG: There is normal compressibility of the deep venous system from the inguinal region to the proximal ca lf. No echogenic clot is seen in the lumen of the common femoral, femoral, popliteal, and posterior tibial veins. There is a normal response of the venous system to proximal and distal augmentation an d respiration. CONCLUSION: Normal examination. Jese Malik MD on July 05, 2016 at 12:44 Board Certified Radiologist. This report was verified electronically.
[2016-07-05] MEDS: FLUCONAZOLE 400 MG PREMIX BAG 400 ML IV SCH ×2 (14:26→16:14)
[2016-07-06] VITALS (13 sets, daily range): BP systolic 126–165; BP diastolic 73–90; PULSE 54–68; RESP 9–21; TEMP 97.9–98.4; O2SAT 98–100
[2016-07-06] MEDS: ACETAMIN 325 MG/BUTALBITAL 50 MG/CAFFEINE 40 MG TAB PO PRN (00:52)
[2016-07-06] MEDS: CHLORHEXIDINE GLUCONATE 2 % 1 PACK (2 CLOTHS) TOP SCH (04:00)
[2016-07-06] MEDS: METOCLOPRAMIDE HCL 10 MG/2 ML VIAL IV PUSH SCH ×3 (05:44→20:50)
[2016-07-06] MEDS: FREE WATER PEG SCH ×4 (05:44→23:13)
[2016-07-06] MEDS: POLYETHYLENE GLYCOL 17 GM PKG PO SCH ×2 (08:00→20:00)
[2016-07-06] MEDS: DOCUSATE SODIUM 100 MG CAP PO SCH ×2 (09:00→20:49)
[2016-07-06] MEDS: SENNOSIDES 8.6 MG TAB PO SCH ×2 (09:00→20:49)
[2016-07-06] MEDS: levETIRAcetam 500 MG TAB PO SCH ×2 (09:11→20:49)
[2016-07-06] MEDS: QUEtiapine FUMARATE 25 MG TAB PO SCH ×2 (09:11→20:50)
[2016-07-06] MEDS: METOPROLOL TARTRATE 25 MG TAB PO SCH ×2 (09:12→20:49)
[2016-07-06] MEDS: THIAMINE HCL 100 MG TAB PO SCH (09:13)
[2016-07-06] MEDS: HEPARIN SODIUM - SQ 10,000 UNITS/ML VIAL SQ SCH ×2 (09:13→20:50)
[2016-07-06] MEDS: FAMOTIDINE 20 MG TAB NG SCH ×2 (09:13→20:49)
[2016-07-06] MEDS: SODIUM CHLORIDE 0.9% FLUSH 5 ML FLUSH IV FLUSH SCH ×2 (09:14→20:49)
--- NOTE | 2016-07-06 10:09 | HHI.CCPN ---
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 The patient underwent placement of right frontal external ventricular drain for acute hydrocephalus and was transferred to [facility] for further treatment of the AVM by embolization followed by suboccipital craniotomy for hematoma evacuation and AVM resection. Postoperatively, he was slow to wake up, his EVD was Clamped and removed and his mental status was improving. Other complications include the UTI and agitation. He was started on Rocephin and Seroquel. The patient is being transferred back to [facility] due to confusion and CSF leak. EVD was placed. He was found to have budding yeast, pseudohyphae in CSF and Enterococcus in blood. 06/30: Currently resting in bed in no acute distress with mittens and vest restraint. Afebrile. Tolerating diet. No bowel movement past 24 hours. 07/01: Resting in bed in no acute distress. Very verbal this morning. Afebrile. No bowel movement this morning. 07/02: Afebrile. 2 episodes of emesis yesterday since resolved. Denies abdominal pain. Tolerating tube feeding. One bowel movement. 07/03: Afebrile. One emesis overnight. KUB unremarkable liver function tests within normal limits. Denies nausea right now. Complaining of itchiness. 07/04: Resting in bed. Ventriculostomy currently at -5 cm H2O. Noted on CT shows increase of fluid collection in the left cerebellar postoperative changed somewhat 4.2 cm. Ventricles specific fourth are mildly enlarged. Will need SPECIALIZED DEVELOPER shunt once infection clear. 07/05: Afebrile. Currently resting in bed with ventriculostomy at -5 cm H2O. Negative growth to date from CSF from 06/30. Currently complains of being "cold ". Subjective 07/06/16: Afebrile. Currently resting in bed having a bowel movement. Denies chest pain, short of breath. Confusion at baseline. Objective Vital Signs Date Time Temp Pulse Resp B/P Pulse Ox O2 Delivery O2 Flow Rate FiO2 07/06/16 09:34 98 21 07/06/16 08:00 98.2 65 18 153/82 Intake and Output 07/05/16 07/05/16 07/06/16 08:00 16:00 00:00 Intake Total 639 ml 687 ml 914 ml Output Total 854 ml 1430 ml 453 ml Balance -215 ml -743 ml 461 ml Result Diagram: 07/05/16 0401 07/05/16 0401 Imaging Last Impressions Lower Extremity Ultrasound 07/05/16 0000 Signed Impressions: Service Date/Time: Tuesday, July 05, 2016 11:28 - CONCLUSION: Normal examination. Jese Malik MD Head CT 07/04/16 0600 Signed Impressions: Service Date/Time: Monday, July 04, 2016 04:27 - CONCLUSION: 1. Postoperative changes in the left cerebellum with multiple coils again seen. 2. The fluid collection in the postoperative bed has increased in size now measuring 7.0 x 4.2 cm. 3. The ventricles are mildly dilated when compared to previous study. 4. Right frontal ventriculostomy catheter is unchanged in position. Altaf Alfaro MD Abdomen X-Ray 07/01/16 0000 Signed Impressions: Service Date/Time: Friday, July 01, 2016 17:33 - CONCLUSION: Benign abdomen. Probable PEG tube in place Don López MD Chest X-Ray 06/22/16 0000 Signed Impressions: Service Date/Time: Wednesday, June 22, 2016 12:54 - CONCLUSION: No acute cardiopulmonary disease identified. Tommy Ramirez MD ADDENDUM: There is a right arm PICC appropriately positioned, tip at the atriocaval junction. Brian Hu MD Objective Remarks GENERAL: 55-year-old male, critically ill currently resting in bed in no acute distress SKIN: Warm and dry. No rash. HEAD: Dry posterior wound, clean, healing well. New right ventriculostomy placed 06/12. EVD draining 37 ml clear CSF in 24 hours at -5 cm H2O NECK: Supple. No thyromegaly lymphadenopathy or carotid bruits. CARDIOVASCULAR: RRR. S1, S2. Without murmurs or clicks, gallops or rubs. RESPIRATORY: Few mobile secretions, clear with cough. Air entry equal bilaterally GASTROINTESTINAL: Abdomen soft, non-tender, nondistended. Normoactive BS MUSCULOSKELETAL: Warm, well perfused. Neuro: Oriented to person. Pupils are equal bilaterally reactive. Moves all 4 extremities spontaneously. Conversant. follows commands. 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 followed by suboccipital craniotomy for hematoma evacuation and AVM resection - EVD wean per NSGY - Neurochecks per ICU routine - Keppra 500 mg twice a day for seizure prophylaxis - Strict BP control CSF leak - repaired - EVD in place - wean per Neurosurgeon - awaiting ID clearance Continue Seroquel 25 mg twice a day Head CT 07/04 revealed increasing left cerebellar hygroma 7x4 centimeters. Will need SPECIALIZED DEVELOPER shunt. CVS Hypertension - Metoprolol 12.5 milligrams Q12 hours - continue Telemetry RESP: Currently on room air. GI: Acute protein calorie malnutritionmild - Continue Jevity 1.5 goal 50 cc an hour with Reglan initiated for motility - mechanical soft diet - advance to regular as tolerated Colace/as needed Senokot for bowel regimen Pepcid for GI prophylaxis KUB 07/01 revealed nonspecific bowel gas pattern. : Condom catheter in place. HEME: Normocytic anemia - Does not meet transfusion triggers at this time. - Daily CBC ID: Hermila Ventriculitis - intraventricular Amphotericin B administration. Last dose 06/30 - systemic D/Gera - right ventriculostomy 06/03, replaced 06/12 - Continue systemic Diflucan 800 mg IV daily - management per ID - no growth on a sample 06/23 - repeat CSF on Thursday06/30/2016 no growth Enterococcus Bacteremia - Completed course of Vanc IV 06/24 Pertinent cultures Blood cultures 2 - 06/09 - Micrococcus/Enterococcus Faecium/coag negative staph CSF 06/10 and 06/12 - Hermila CSF - 06/30 - Gram stain/fungal cultures no growth Renal: Monitor urine output. Creatinine within normal limits FEN - continue free water to 50cc every 6 - ICU electrolyte protocol Prophylaxis: GI Prophylaxis Pepcid 20 mg twice a day: DVT Prophylaxis - SCDs - Heparin subQ Level 2 Problem Qualifiers (1) UTI (urinary tract infection): (2) Cerebellar hemorrhage: Qualified Code: I61.4 - Nontraumatic intracerebral hemorrhage of cerebellum, unspecified laterality Darrick Dasilva MD Jul 06, 2016 10:09
--- NOTE | 2016-07-06 10:14 | HHI.NSPN ---
Subjective History 06/30/16 He is easily arousable, follows commands. He is oriented to the hospital but not to the name of the place or the date. He wound remains closed with a scab. His ICP is low as well as CSF drainage. The csf is slightly cloudy but has no blood. 07/05/16 The CSF is clear and he is alert. He has cognitive deficits and disinhibition but is able to follow commands. 07-06-16 The CSF remains clear and he is following commands. His occipital incision is dry and soft. EVD is at 5 cm water and drained 35 cc in 24 hrs Vitals . Vital Signs Date Time Temp Pulse Resp B/P Pulse Ox O2 Delivery O2 Flow Rate FiO2 07/06/16 09:34 98 21 07/06/16 08:00 98.2 65 18 153/82 100 07/06/16 08:00 65 07/06/16 06:00 64 07/06/16 04:00 56 07/06/16 04:00 97.9 56 18 127/73 100 07/06/16 02:00 54 07/06/16 00:00 62 07/06/16 00:00 98.3 62 21 126/79 100 07/05/16 22:00 56 07/05/16 20:00 66 07/05/16 20:00 98.8 66 21 137/81 100 07/05/16 18:00 65 07/05/16 16:00 59 07/05/16 16:00 98.7 59 12 129/74 100 07/05/16 14:00 73 07/05/16 12:00 98.7 60 14 153/85 99 07/05/16 12:00 78 07/05/16 07/05/16 07/06/16 15:00 23:00 07:00 Intake Total 687 ml 914 ml 674 ml Output Total 1430 ml 453 ml 854 ml Balance -743 ml 461 ml -180 ml Physical Exam Head Head: Incision (dry, soft) Eyes Eyes: Pupils Equal (no nystagmus) Neuro Mental Status: Awake, Alert (but does not know the year) Pupils: Reactive Bilaterally Lazaro Coma Scale Best Eye Openin - Spontaneous Best Verbal: 4 - Confused Best Motor: 6 - Obeys Total Glascow Coma Scale (GCS): 14 Sensation: Intact Cardiac Cardiac: Regular Rate & Rhythm Gastrointestinal Gastrointestinal: Soft Musculoskeletal Musculoskeletal: Moves all extrem with 5/5 strength Extremities Upper Extremities Deltoid Bicep Tricep HI W. Ext Right Left Lower Extremeties Ilio Quad Plantar Dorsi EHL Right Left Extremities Edema: No Edema, SCDs Objective Infectious Disease Cultures No positive cx since the end of antibiotics Assessment & Plan Diagnosis: (1) Hermila Ventriculitis Plan: Antibiotitcs completed, ready for VPS next week. (2) Encephalopathy, traumatic Plan: Complicated by ventriculitis,now treated, follow up CSF Thursday, shunt Thursday Critical Care Time (minutes): 10 Meo Boles Jul 06, 2016 10:14
[2016-07-06] MEDS: FLUCONAZOLE 400 MG PREMIX BAG 400 ML IV SCH ×2 (13:33→15:31)
[2016-07-07] VITALS (12 sets, daily range): BP systolic 135–167; BP diastolic 74–87; PULSE 58–97; RESP 14–27; TEMP 97.9–98.5; O2SAT 99–100
[2016-07-07] MEDS: CHLORHEXIDINE GLUCONATE 2 % 1 PACK (2 CLOTHS) TOP SCH (04:00)
[2016-07-07 05:19] LABS: AUTOMATED NEUTROPHIL # 3.9 TH/MM3 (1.8-7.7); BASOPHIL % 0.6 % (0.0-2.0); EOSINOPHIL # 0.1 TH/MM3 (0-0.4); EOSINOPHIL % 2.1 % (0.0-4.0); HEMATOCRIT 31.8 % (39.0-51.0); HEMO FLAGS DIFF FINAL; LYMPH % 16.7 % (9.0-44.0); LYMPHOCYTE # 0.9 TH/MM3 (1.0-4.8); MEAN CELL VOLUME 88.6 FL (80.0-100.0); MEAN CORPUSCULAR HEMOGLOBIN 30.1 PG (27.0-34.0); NEUT % 72.6 % (16.0-70.0); PLATELET COUNT 206 TH/MM3 (150-450); RED BLOOD COUNT 3.59 MIL/MM3 (4.50-5.90); RED CELL DISTRIBUTION WIDTH 13.9 % (11.6-17.2); WHITE BLOOD COUNT 5.4 TH/MM3 (4.0-11.0)
[2016-07-07 05:38] LABS: ALKALINE PHOSPHATASE 104 U/L (45-117); ALT (GPT) 29 U/L (12-78); ANION GAP 7 MEQ/L (5-15); AST (GOT) 10 U/L (15-37); BICARBONATE 33.1 MEQ/L (21.0-32.0); BLOOD UREA NITROGEN 14 MG/DL (7-18); CHLORIDE 99 MEQ/L (98-107); GLOMERULAR FILTRATION RATE 130 ML/MIN (>89); MAGNESIUM 1.9 MG/DL (1.5-2.5); POTASSIUM 3.5 MEQ/L (3.5-5.1); SODIUM (NA) 139 MEQ/L (136-145); TOTAL BILIRUBIN ADULT 0.2 MG/DL (0.2-1.0)
[2016-07-07] MEDS: FREE WATER PEG SCH ×3 (06:00→16:27)
[2016-07-07] MEDS: METOCLOPRAMIDE HCL 10 MG/2 ML VIAL IV PUSH SCH ×3 (06:22→21:08)
--- NOTE | 2016-07-07 07:40 | HHI.NSPN ---
History Chief Complaint: No headache. Ventriculitis. Interval History 55-year-old male with Hermila ventriculitis. Status post suboccipital craniotomy for intracranial hemorrhage. AVM treated at [facility]. Subsequent CSF leak 07/07/2016: CSF sent for routine specimen Exam Results Vital Signs Date Time Temp Pulse Resp B/P Pulse Ox O2 Delivery O2 Flow Rate FiO2 07/07/16 06:00 75 07/07/16 04:00 97.9 14 135/84 100 07/06/16 09:34 21 Intake and Output 07/06/16 07/06/16 07/07/16 08:00 16:00 00:00 Intake Total 674 ml 730 ml 1143 ml Output Total 854 ml 737 ml 755 ml Balance -180 ml -7 ml 388 ml Physical Examination He is alert, following few simple commands. Smiling. Speech is fluent but confused. follows few simple commands. EVD site is intact, and clean, CSF clear slightly cloudy with some debris, Posterior fossa wound is dry, healing well, no signs of infection CN: pupils 3 mm equal, EOMs intact, no nystagmus. facial appears symmetric at rest, tongue protrude midline Motor: moves grossly all four extremities symmetrically to command, on upper extremity restraints and hand mittens. Strength appears normal all extremities. Sensory: intact to light touch x 4 DTRs 2+ b/l Cerebellar: attempting heel to hyman, difficulty with exam due to cognition Lab, Micro, Other Results Laboratory Tests Test 07/07/16 05:00 White Blood Count 5.4 TH/MM3 Red Blood Count 3.59 MIL/MM3 Hemoglobin 10.8 GM/DL Hematocrit 31.8 % Mean Corpuscular Volume 88.6 FL Mean Corpuscular Hemoglobin 30.1 PG Mean Corpuscular Hemoglobin 34.0 % Concent Red Cell Distribution Width 13.9 % Platelet Count 206 TH/MM3 Mean Platelet Volume 8.4 FL Neutrophils (%) (Auto) 72.6 % Lymphocytes (%) (Auto) 16.7 % Monocytes (%) (Auto) 8.0 % Eosinophils (%) (Auto) 2.1 % Basophils (%) (Auto) 0.6 % Neutrophils # (Auto) 3.9 TH/MM3 Lymphocytes # (Auto) 0.9 TH/MM3 Monocytes # (Auto) 0.4 TH/MM3 Eosinophils # (Auto) 0.1 TH/MM3 Basophils # (Auto) 0.0 TH/MM3 CBC Comment DIFF FINAL Differential Comment Sodium Level 139 MEQ/L Potassium Level 3.5 MEQ/L Chloride Level 99 MEQ/L Carbon Dioxide Level 33.1 MEQ/L Anion Gap 7 MEQ/L Blood Urea Nitrogen 14 MG/DL Creatinine 0.64 MG/DL Estimat Glomerular Filtration 130 ML/MIN Rate Random Glucose 123 MG/DL Calcium Level 8.7 MG/DL Phosphorus Level 3.8 MG/DL Magnesium Level 1.9 MG/DL Total Bilirubin 0.2 MG/DL Aspartate Amino Transf 10 U/L (AST/SGOT) Alanine Aminotransferase 29 U/L (ALT/SGPT) Alkaline Phosphatase 104 U/L Total Protein 6.5 GM/DL Albumin 3.0 GM/DL Medical Decision Making Impression and Plan Impression: 1. Hermila ventriculitis following wound CSF leak from suboccipital craniotomy for treatment AVM Plan: Additional CSF specimen sent on 07/07/2016 for routine cultures Amphotericin B intraventricular injections completed Neurologic exam stable. Continue present treatment for ventriculitis Iker Escobedo MD Jul 07, 2016 07:40
[2016-07-07] MEDS: POLYETHYLENE GLYCOL 17 GM PKG PO SCH ×2 (08:48→19:58)
[2016-07-07] MEDS: SODIUM CHLORIDE 0.9% FLUSH 5 ML FLUSH IV FLUSH SCH ×2 (08:48→20:00)
[2016-07-07] MEDS: FAMOTIDINE 20 MG TAB NG SCH ×2 (08:48→20:00)
[2016-07-07] MEDS: SENNOSIDES 8.6 MG TAB PO SCH ×2 (08:49→20:00)
[2016-07-07] MEDS: QUEtiapine FUMARATE 25 MG TAB PO SCH ×2 (08:49→19:59)
[2016-07-07] MEDS: HEPARIN SODIUM - SQ 10,000 UNITS/ML VIAL SQ SCH ×2 (08:49→21:00)
[2016-07-07] MEDS: METOPROLOL TARTRATE 25 MG TAB PO SCH ×3 (08:49→19:59)
[2016-07-07] MEDS: levETIRAcetam 500 MG TAB PO SCH ×2 (08:49→19:59)
[2016-07-07] MEDS: THIAMINE HCL 100 MG TAB PO SCH (08:49)
[2016-07-07] MEDS: DOCUSATE SODIUM 100 MG CAP PO SCH ×2 (08:49→19:59)
--- NOTE | 2016-07-07 08:51 | HHI.CCPN ---
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 The patient underwent placement of right frontal external ventricular drain for acute hydrocephalus and was transferred to [facility] for further treatment of the AVM by embolization followed by suboccipital craniotomy for hematoma evacuation and AVM resection. Postoperatively, he was slow to wake up, his EVD was Clamped and removed and his mental status was improving. Other complications include the UTI and agitation. He was started on Rocephin and Seroquel. The patient is being transferred back to [facility] due to confusion and CSF leak. EVD was placed. He was found to have budding yeast, pseudohyphae in CSF and Enterococcus in blood. 06/30: Currently resting in bed in no acute distress with mittens and vest restraint. Afebrile. Tolerating diet. No bowel movement past 24 hours. 07/01: Resting in bed in no acute distress. Very verbal this morning. Afebrile. No bowel movement this morning. 07/02: Afebrile. 2 episodes of emesis yesterday since resolved. Denies abdominal pain. Tolerating tube feeding. One bowel movement. 07/03: Afebrile. One emesis overnight. KUB unremarkable liver function tests within normal limits. Denies nausea right now. Complaining of itchiness. 07/04: Resting in bed. Ventriculostomy currently at -5 cm H2O. Noted on CT shows increase of fluid collection in the left cerebellar postoperative changed somewhat 4.2 cm. Ventricles specific fourth are mildly enlarged. Will need [employer] shunt once infection clear. 07/05: Afebrile. Currently resting in bed with ventriculostomy at -5 cm H2O. Negative growth to date from CSF from 06/30. Currently complains of being "cold ". 07/06/16: Afebrile. Currently resting in bed having a bowel movement. Denies chest pain, short of breath. Confusion at baseline. Subjective 07/07/16: Afebrile. Request removal of soft wrist restraints. He is more hypertensive today. Denies chest pain or shortness of breath. Objective Vital Signs Date Time Temp Pulse Resp B/P Pulse Ox O2 Delivery O2 Flow Rate FiO2 07/07/16 08:00 98.3 71 19 167/77 100 07/06/16 09:34 21 Intake and Output 07/06/16 07/06/16 07/07/16 08:00 16:00 00:00 Intake Total 674 ml 730 ml 1143 ml Output Total 854 ml 737 ml 755 ml Balance -180 ml -7 ml 388 ml Result Diagram: 07/07/16 0500 07/07/16 0500 Other Results Microbiology Date/Time Procedure Status Source Growth 07/07/16 07:40 Fungal Smear Received Cerebral Spinal Fluid Shunt Fluid Pending 07/07/16 07:40 Fungal Culture Received Cerebral Spinal Fluid Shunt Fluid Pending 07/07/16 07:40 Acid Fast Stain Received Cerebral Spinal Fluid Shunt Fluid Pending 07/07/16 07:40 Mycobacterial Culture Received Cerebral Spinal Fluid Shunt Fluid Pending 07/07/16 07:10 Gram Stain Received Cerebral Spinal Fluid Shunt Fluid Pending 07/07/16 07:10 CSF Culture Received Cerebral Spinal Fluid Shunt Fluid Pending Imaging Last Impressions Lower Extremity Ultrasound 07/05/16 0000 Signed Impressions: Service Date/Time: Tuesday, July 05, 2016 11:28 - CONCLUSION: Normal examination. Jese Malik MD Head CT 07/04/16 0600 Signed Impressions: Service Date/Time: Monday, July 04, 2016 04:27 - CONCLUSION: 1. Postoperative changes in the left cerebellum with multiple coils again seen. 2. The fluid collection in the postoperative bed has increased in size now measuring 7.0 x 4.2 cm. 3. The ventricles are mildly dilated when compared to previous study. 4. Right frontal ventriculostomy catheter is unchanged in position. Altaf Alfaro MD Abdomen X-Ray 07/01/16 0000 Signed Impressions: Service Date/Time: Friday, July 01, 2016 17:33 - CONCLUSION: Benign abdomen. Probable PEG tube in place Don López MD Chest X-Ray 06/22/16 0000 Signed Impressions: Service Date/Time: Wednesday, June 22, 2016 12:54 - CONCLUSION: No acute cardiopulmonary disease identified. Tommy Ramirez MD ADDENDUM: There is a right arm PICC appropriately positioned, tip at the atriocaval junction. Brian Hu MD Objective Remarks GENERAL: 55-year-old male, critically ill currently resting in bed in no acute distress SKIN: Warm and dry. No rash. HEAD: Dry posterior wound, clean, healing well. New right ventriculostomy placed 06/12. EVD draining 16 ml clear CSF in 24 hours at -5 cm H2O NECK: Supple. No thyromegaly lymphadenopathy or carotid bruits. CARDIOVASCULAR: RRR. S1, S2. Without murmurs or clicks, gallops or rubs. RESPIRATORY: Few mobile secretions, clear with cough. Air entry equal bilaterally GASTROINTESTINAL: Abdomen soft, non-tender, nondistended. Normoactive BS MUSCULOSKELETAL: Warm, well perfused. Neuro: Oriented to person. Pupils are equal bilaterally reactive. Moves all 4 extremities spontaneously. Conversant. follows commands. 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 Currently at -5 cm H2O - awaiting ID clearance Continue Seroquel 25 mg twice a day Head CT 07/04 revealed increasing left cerebellar hygroma 7x4 centimeters. Will need [employer] shunt once cleared by ID. CVS Hypertension - Metoprolol 12.5 milligrams Q12 hours. Increased to 25 mg every 12 hours - continue Telemetry RESP: Currently on room air. GI: Acute protein calorie malnutritionmild - Continue Jevity 1.5 goal 50 cc an hour with Reglan initiated for motility - mechanical soft diet - advance to regular as tolerated Colace/as needed Senokot for bowel regimen Pepcid for GI prophylaxis KUB 07/01 revealed nonspecific bowel gas pattern. : Condom catheter in place. HEME: Normocytic anemia - Does not meet transfusion triggers at this time. - Daily CBC ID: Hermila Ventriculitis - intraventricular Amphotericin B administration. Last dose 06/30 - systemic D/Gera - right ventriculostomy 06/03, replaced 06/12 - Continue systemic Diflucan 800 mg IV daily - management per ID - no growth on a sample 06/23 - repeat CSF on Thursday06/30/2016 no growth Enterococcus Bacteremia - Completed course of Vanc IV 06/24 Pertinent cultures Blood cultures 2 - 06/09 - Micrococcus/Enterococcus Faecium/coag negative staph CSF 06/10 and 06/12 - Hermila CSF - 06/30 - Gram stain/fungal cultures no growth CSF glucose/protein this a.m. pending Renal: Monitor urine output. Creatinine within normal limits FEN - continue free water to 50cc every 6 - ICU electrolyte protocol Prophylaxis: GI Prophylaxis Pepcid 20 mg twice a day: DVT Prophylaxis - SCDs - Heparin subQ Level 2 Problem Qualifiers (1) UTI (urinary tract infection): (2) Cerebellar hemorrhage: Qualified Code: I61.4 - Nontraumatic intracerebral hemorrhage of cerebellum, unspecified laterality Darrick Dasilva MD Jul 07, 2016 08:51
[2016-07-07] MEDS ORDERED: hydrALAZINE HCL 20 MG/ML VIAL IV PUSH PRN (09:00)
[2016-07-07] MEDS ORDERED: LABETALOL HCL 100 MG/20 ML VIAL IV PUSH PRN (09:00)
[2016-07-07 09:30] LABS: CSF LYMPHOCYTES 47 %; CSF MONOCYTES 23 %; CSF NEUTROPHILS 29 %; GROSS BLOOD TUBE #1 0 (0); SUPERNATE COLOR TUBE #1 CLEAR (CLEAR); WBC TUBE #1 26 /MM3 (0-10)
--- NOTE | 2016-07-07 12:58 | HHI.IDPN ---
Subjective Subjective Remarks ID COVERAGE Chart reviewed is a 55 y/o CM with AVM S/P coiling. On Rx for Hermila ventriculitis Notes reviewed Ventriculostomy in place, CSF clear Repeat CSF analysis done today - CSF WBC much improved Last (+) CSF C/S from 06/12 CSF C/S 06/16, 06/23 and 06/30 negative No SCHULTZ No rash No diarrhea Antibiotics Diflucan IV Lines Line sites with no e/o infection Past Medical History AVM s/p coil Allergies: Coded Allergies: Oxycodone (Unverified Allergy, Intermediate, ITCHY, 01/16/16) Objective . Vital Signs Date Time Temp Pulse Resp B/P Pulse Ox O2 Delivery O2 Flow Rate FiO2 07/07/16 10:00 58 07/07/16 08:00 98.3 71 19 167/77 100 07/07/16 08:00 71 07/07/16 06:00 75 07/07/16 04:00 84 07/07/16 04:00 97.9 84 14 135/84 100 07/07/16 02:00 72 07/07/16 00:00 66 07/07/16 00:00 98.0 66 27 143/78 100 07/06/16 22:00 56 07/06/16 20:00 98.1 68 16 151/81 100 07/06/16 20:00 68 07/06/16 18:00 67 07/06/16 16:00 98.2 66 16 138/76 100 07/06/16 16:00 66 07/06/16 14:00 64 07/06/16 07/06/16 07/07/16 15:00 23:00 07:00 Intake Total 730 ml 1143 ml 614 ml Output Total 737 ml 755 ml 500 ml Balance -7 ml 388 ml 114 ml Intake Oral 120 ml IV Total 187 ml 672 ml 155 ml Tube Feeding 373 ml 371 ml 359 ml Other 50 ml 100 ml 100 ml Output Urine Total 725 ml 750 ml 500 ml Drainage Total 12 ml 5 ml 0 ml # Bowel Movements 2 1 1 . Laboratory Tests Test 07/07/16 05:00 White Blood Count 5.4 TH/MM3 Red Blood Count 3.59 MIL/MM3 Hemoglobin 10.8 GM/DL Hematocrit 31.8 % Mean Corpuscular Volume 88.6 FL Mean Corpuscular Hemoglobin 30.1 PG Mean Corpuscular Hemoglobin 34.0 % Concent Red Cell Distribution Width 13.9 % Platelet Count 206 TH/MM3 Mean Platelet Volume 8.4 FL Neutrophils (%) (Auto) 72.6 % Lymphocytes (%) (Auto) 16.7 % Monocytes (%) (Auto) 8.0 % Eosinophils (%) (Auto) 2.1 % Basophils (%) (Auto) 0.6 % Neutrophils # (Auto) 3.9 TH/MM3 Lymphocytes # (Auto) 0.9 TH/MM3 Monocytes # (Auto) 0.4 TH/MM3 Eosinophils # (Auto) 0.1 TH/MM3 Basophils # (Auto) 0.0 TH/MM3 CBC Comment DIFF FINAL Differential Comment Laboratory Tests Test 07/07/16 05:00 Sodium Level 139 MEQ/L Potassium Level 3.5 MEQ/L Chloride Level 99 MEQ/L Carbon Dioxide Level 33.1 MEQ/L Anion Gap 7 MEQ/L Blood Urea Nitrogen 14 MG/DL Creatinine 0.64 MG/DL Estimat Glomerular Filtration 130 ML/MIN Rate Random Glucose 123 MG/DL Calcium Level 8.7 MG/DL Phosphorus Level 3.8 MG/DL Magnesium Level 1.9 MG/DL Total Bilirubin 0.2 MG/DL Aspartate Amino Transf 10 U/L (AST/SGOT) Alanine Aminotransferase 29 U/L (ALT/SGPT) Alkaline Phosphatase 104 U/L Total Protein 6.5 GM/DL Albumin 3.0 GM/DL Microbiology Date/Time Procedure Status Source Growth 07/07/16 07:10 Gram Stain - Final Resulted Cerebral Spinal Fluid Shunt Fluid 07/07/16 07:10 CSF Culture Resulted Cerebral Spinal Fluid Shunt Fluid Pending 07/07/16 07:40 Acid Fast Stain Received Cerebral Spinal Fluid Shunt Fluid Pending 07/07/16 07:40 Mycobacterial Culture Received Cerebral Spinal Fluid Shunt Fluid Pending 07/07/16 07:40 Fungal Smear Received Cerebral Spinal Fluid Shunt Fluid Pending 07/07/16 07:40 Fungal Culture Received Cerebral Spinal Fluid Shunt Fluid Pending Imaging Lower Extremity Ultrasound 07/05/16 0000 Signed Impressions: Service Date/Time: Tuesday, July 05, 2016 11:28 - CONCLUSION: Normal examination. Jese Malik MD Head CT 07/04/16 0600 Signed Impressions: Service Date/Time: Monday, July 04, 2016 04:27 - CONCLUSION: 1. Postoperative changes in the left cerebellum with multiple coils again seen. 2. The fluid collection in the postoperative bed has increased in size now measuring 7.0 x 4.2 cm. 3. The ventricles are mildly dilated when compared to previous study. 4. Right frontal ventriculostomy catheter is unchanged in position. Altaf Alfaro MD Abdomen X-Ray 07/01/16 0000 Signed Impressions: Service Date/Time: Friday, July 01, 2016 17:33 - CONCLUSION: Benign abdomen. Probable PEG tube in place Don López MD Chest X-Ray 06/22/16 0000 Signed Impressions: Service Date/Time: Wednesday, June 22, 2016 12:54 - CONCLUSION: No acute cardiopulmonary disease identified. Tommy Ramirez MD ADDENDUM: There is a right arm PICC appropriately positioned, tip at the atriocaval junction. Brian Hu MD Head CT 06/10/16 0600 Signed Impressions: Service Date/Time: Friday, June 10, 2016 05:01 - CONCLUSION: 1. 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 Locules of air within the fluid are decreasing since June 08. Right frontal ventriculostomy tube remains present with stable ventricular size. No hydrocephalus. Kirk Cortes MD Physical Exam GENERAL: Thin built, awake and responding, NAD SKIN: No rashes. Cool and dry. HEAD: Surgical site with no e/o infection. Ventric site with no gross e/o infection. EYES: Pupils equal round and reactive. Extraocular motions intact. ENT: Nose without bleeding, or purulent drainage. Throat without erythema, or exudate. Moist mucosa. NECK: Trachea midline.Supple, nontender, neck not very supple. CARDIOVASCULAR: Regular rate and rhythm. No murmur appreciated. RESPIRATORY: Clear to auscultation. Breath sounds equal bilaterally. No wheezes , rales, or rhonchi. GASTROINTESTINAL: Abdomen soft, non-tender, nondistended. MUSCULOSKELETAL: Extremities without clubbing, cyanosis, or edema. No joint tenderness, effusion, or edema noted. NEUROLOGICAL: Awake and alert. Responds to questions not appropriate all the times. Moves all 4 extremities. Psych: cooperative IV line sites with no e/o infection. Assessment & Plan Remarks Hermila albicans ventriculitis. MRI cannot be performed due to coils. - CSF counts better E.faecalis bacteremia: No central lines or PIVs. Treated. Repeat BCX negative. SIRS/Sepsis now controlled since Vanco IV started. AVM was transferred to [facility] for further treatment of the AVM by embolization followed by suboccipital craniotomy for hematoma evacuation and AVM resection. CSF leak and hydrocephalus s/p Rt sima hole and Ventriculostomy catheter placement 06/03/2016. s/p PICC placement. Recs: Continue Diflucan 800 mg IV every 24 hours. Follow new CSF C/S Monitor clinically Will need [employer]END[employer] shunt, and will await new CSF studies to decide on timing of new [employer]END[employer] shunt placement Matilde Coulter MD Jul 07, 2016 12:58
[2016-07-07] MEDS: FLUCONAZOLE 400 MG PREMIX BAG 400 ML IV SCH ×2 (14:08→16:27)
[2016-07-08] VITALS (12 sets, daily range): BP systolic 128–145; BP diastolic 78–90; PULSE 66–100; RESP 8–30; TEMP 98–98.6; O2SAT 97–100
[2016-07-08] MEDS: MORPHINE SULFATE 4 MG/ML INJ IV PUSH PRN ×3 (00:57→20:08)
[2016-07-08] MEDS: CHLORHEXIDINE GLUCONATE 2 % 1 PACK (2 CLOTHS) TOP SCH (03:20)
[2016-07-08] MEDS: METOCLOPRAMIDE HCL 10 MG/2 ML VIAL IV PUSH SCH (05:05)
[2016-07-08] MEDS: FREE WATER PEG SCH ×5 (06:00→23:56)
[2016-07-08] MEDS: POLYETHYLENE GLYCOL 17 GM PKG PO SCH ×2 (08:00→20:00)
[2016-07-08] MEDS: FAMOTIDINE 20 MG TAB NG SCH ×2 (08:54→20:09)
[2016-07-08] MEDS: QUEtiapine FUMARATE 25 MG TAB PO SCH ×2 (08:54→20:08)
[2016-07-08] MEDS: levETIRAcetam 500 MG TAB PO SCH ×2 (08:54→20:08)
[2016-07-08] MEDS: ONDANSETRON HCL 4 MG/2 ML VIAL IV PRN (08:54)
[2016-07-08] MEDS: THIAMINE HCL 100 MG TAB PO SCH (08:54)
[2016-07-08] MEDS: HEPARIN SODIUM - SQ 10,000 UNITS/ML VIAL SQ SCH ×3 (08:54→20:08)
[2016-07-08] MEDS: SODIUM CHLORIDE 0.9% FLUSH 5 ML FLUSH IV FLUSH SCH ×2 (08:54→20:09)
[2016-07-08] MEDS: SENNOSIDES 8.6 MG TAB PO SCH (08:56)
[2016-07-08] MEDS: DOCUSATE SODIUM 100 MG CAP PO SCH (08:58)
[2016-07-08] MEDS: METOPROLOL TARTRATE 25 MG TAB PO SCH ×2 (08:59→20:08)
--- NOTE | 2016-07-08 09:47 | HHI.NSPN ---
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 The patient underwent placement of right frontal external ventricular drain for acute hydrocephalus and was transferred to [facility] for further treatment of the AVM by embolization followed by suboccipital craniotomy for hematoma evacuation, and AVM resection at [facility] . Postoperatively, he was slow to wake up, his EVD was Clamped and removed at [facility] and his mental status was improving. He had UTI and agitation. He was started on Rocephin and Seroquel. The patient was being transferred back to [facility] due to confusion and CSF leak. 06/04: s/p placement of ventriculostomy drain. no further leaking noted from posterior fossa wound, there has been scab formation also. 06/05: no wound leak seen 06/06: appears more awake today, wound dry, no evidence of CSF leaking overnight 06/09: wound dry, sitting up in chair eating breakfast 06/10: follow up CT Brain reviewed 06/11: prelim CSF testing shows elevated WBCs, proteins with low glucose, 06/12: CSF showing fungal growth, intraventricular ampho b ordered 06/13: EVD draining, no significant changes to neuro checks overnight 06/16: neuro checks stable overnight, alert, pleasantly confused today 06/17: intermittently confused, working with PT, repeat CSF cx pending 06/18: intermittent complaints of headaches yesterday, currently denies HAs, moves all four extremities, reported no allergic type rx following administration of intraventric ampho 06/19: reported SCHULTZ following ampho b adminstration that resolves, no changed in mental status or neuro checks 06/20: pleasantly confused, neuro checks stable overnight. 06/23: sitting up in chair, stably confused. 06/24: repeat CSF fungal stain neg, cultures pending 06/25: about to sit up in chair for breakfast, only transferring short distance from bed to chair and he is reported to still be quite ataxic. Final fungal smear reports no fungal elements seen. 06/26: denies headaches, feels his head is clearer 06/27: room moved to across nursing station, requesting milkshake for breakfast. 06/28: stable neuro checks, denies headaches, stably confused, follows simple commands 06/29: doing well, unchanged overnight 07/02: challenging EVD, minimal output at 10 cm H20, neuro checks stable. Intraventric ampho dc'ed per ID 07/03: mental status reported to be unchanged, had vomited once yesterday 07/04: EVD clamped since yesterday, f/u CT Brain completed this am, no change in his neuro checks, remains alert, stably confused, sitting up in stretcher chair and working with PT 07/08/15: Patient pulled EVD out last night, currently alert, stable mental status. Repeat CSF cx obtained yesterday (Anusha Hastings) Labs, Micro, & Vital Signs Results Date Time Temp Pulse Resp B/P Pulse Ox O2 Delivery O2 Flow Rate FiO2 07/08/16 08:00 98.2 95 13 133/79 98 07/08/16 08:00 97 07/08/16 06:00 70 07/08/16 04:00 70 07/08/16 04:00 98.4 70 11 139/87 100 07/08/16 02:00 71 07/08/16 00:00 98.3 80 24 138/90 100 07/08/16 00:00 80 07/07/16 22:00 82 07/07/16 20:00 86 07/07/16 20:00 98.3 86 27 149/74 99 07/07/16 18:00 85 07/07/16 16:00 97 07/07/16 16:00 98.5 78 23 155/84 100 07/07/16 14:00 70 07/07/16 12:00 98.5 68 27 158/87 100 07/07/16 12:00 68 07/07/16 10:00 58 07/08/16 06:59 Intake Total 1272 ml Output Total 1500 ml Balance -228 ml Constitutional Vital Signs Date Time Temp Pulse Resp B/P Pulse Ox O2 Delivery O2 Flow Rate FiO2 07/08/16 08:00 98.2 95 13 133/79 98 07/08/16 08:00 97 07/08/16 06:00 70 07/08/16 04:00 70 07/08/16 04:00 98.4 70 11 139/87 100 07/08/16 02:00 71 07/08/16 00:00 98.3 80 24 138/90 100 07/08/16 00:00 80 07/07/16 22:00 82 07/07/16 20:00 86 07/07/16 20:00 98.3 86 27 149/74 99 07/07/16 18:00 85 07/07/16 16:00 97 07/07/16 16:00 98.5 78 23 155/84 100 07/07/16 14:00 70 07/07/16 12:00 98.5 68 27 158/87 100 07/07/16 12:00 68 07/07/16 10:00 58 07/08/16 06:59 Intake Total 1272 ml Output Total 1500 ml Balance -228 ml (Anusha Hastings) Review of Systems/Exam Exam Mr. Badillo is sitting up in recliner chair. Alert, oriented to name. Confused which remains unchanged. Follows commands. Ventriculostomy site with dressing in place. Posterior fossa wound is dry, healing well without evidence of infection CN: pupils 3 mm equal, EOMs intact, no nystagmus. facial appears symmetric at rest, tongue protrude midline Motor: moves grossly all four extremities symmetrically to command, on upper extremity restraints. Strength appears normal all extremities. Sensory: intact to light touch x 4 DTRs 2+ b/l (Anusha Hastings) Medications Current Medications Current Medications Medications (Trade) Dose Ordered Sig/Paula Route PRN Reason Start Time Stop Time Status Last Admin Dose Admin Naloxone HCl (Narcan Inj) 0.4 mg UNSCH PRN IV SEE LABEL COMMENTS 05/29/16 15:00 Acetaminophen/ Butalbital/ Caffeine (Fioricet 325-50-40) 1 tab Q6H PRN PO PAIN GREATER THAN 5 or headach 05/29/16 15:00 07/06/16 00:52 Heparin Sodium (Porcine) (Heparin Inj) 5,000 units Q12HR SQ 05/29/16 21:00 07/07/16 21:00 Levetriacetam (Keppra) 500 mg Q12HR PO 05/29/16 21:00 07/08/16 08:54 Morphine Sulfate (Morphine Inj) 2 mg Q3H PRN IV PUSH BREAKTHROUGH PAIN 06/02/16 10:30 07/08/16 08:59 Diphenhydramine HCl (Benadryl 2% Cream) 1 applic TID PRN TOPICAL ITCHING 06/02/16 11:15 IV Flush (NS Flush) 2 ml UNSCH PRN IV FLUSH FLUSH AFTER USING IV ACCESS 06/03/16 09:45 IV Flush (NS Flush) 2 ml BID IV FLUSH 06/03/16 21:00 07/08/16 08:54 Acetaminophen (Tylenol) 650 mg Q6H PRN PO FEVER >100F 06/03/16 09:45 06/22/16 09:11 Ondansetron HCl (Zofran Inj) 4 mg Q6H PRN IV NAUSEA OR VOMITING 06/03/16 09:45 07/08/16 08:54 Docusate Sodium (Colace) 100 mg BID PO 06/03/16 21:00 07/04/16 08:16 Sennosides (Senokot) 17.2 mg BID PO 06/03/16 09:45 07/04/16 20:41 Miscellaneous Information 1 Q361D XX 06/03/16 09:45 Chlorhexidine Gluconate (Chlorhexidine 2% Cloth) Taper DAILY@04 TOP 06/04/16 04:00 05/31/17 03:59 06/25/16 04:00 Chlorhexidine Gluconate 3 pack 3 pack UNSCH PRN TOP HYGIENIC CARE 06/03/16 09:45 Sodium Chloride (NS 1000 ml Inj) 1,000 ml @ 100 mls/hr Q10H IV 06/03/16 21:16 Hold 06/05/16 22:23 Famotidine (Pepcid) 20 mg BID NG 06/04/16 09:00 07/08/16 08:54 Quetiapine Fumarate (SEROquel) 25 mg BID PO 06/06/16 09:00 07/08/16 08:54 Loperamide HCl (Imodium Liq) 2 mg UNSCH PRN TUBE DIARRHEA 06/06/16 16:15 07/03/16 14:57 Hydrocortisone Sodium Succinate 25 mg 25 mg Q24H PRN IV PRE-MED PRIOR TO AMPHOTERCIN B 06/11/16 17:00 06/30/16 09:54 Potassium Chloride 100 ml @ 50 mls/hr Q2H PRN IV For Potassium 2.8 - 3.2 mEq/L 06/12/16 07:15 06/23/16 09:43 Potassium Chloride (KCl 20 Meq Premix Inj) 100 ml @ 50 mls/hr Q2H PRN IV For Potassium 2.8 - 3.2 mEq/L 06/12/16 07:15 06/26/16 11:32 Potassium Chloride 40 meq 40 meq UNSCH PRN PO/TUBE For Potassium 3.3 - 3.5 mEq/L 06/12/16 07:15 06/28/16 06:33 Potassium Chloride 100 ml @ 25 mls/hr UNSCH PRN IV For Potassium 3.3 - 3.5 mEq/L 06/12/16 07:15 Potassium Chloride 100 ml @ 50 mls/hr Q2H PRN IV For Potassium 3.3 - 3.5 mEq/L 06/12/16 07:15 06/26/16 09:24 Magnesium Sulfate/ Sodium Chloride (Magnesium Sulfate Inj/NS Inj) 100 ml @ 50 mls/hr UNSCH PRN IV For Magnesium 0.9 - 1.1 mg/dL 06/12/16 07:15 Magnesium Oxide 800 mg 800 mg UNSCH PRN PO For Magnesium 1.2 - 1.6 mg/dL 06/12/16 07:15 Magnesium Sulfate/ Sodium Chloride (Magnesium Sulfate Inj/NS Inj) 100 ml @ 50 mls/hr UNSCH PRN IV For Magnesium 1.2 - 1.6 mg/dL 06/12/16 07:15 Potassium Phosphate 2000 mg 2,000 mg Q4H PRN PO For Phosphorus < 2.5 mg/dL 06/12/16 07:15 Sodium Phosphate/ Sodium Chloride (Sodium Phosphate Inj/NS 250 ml Inj) 250 ml @ 42 mls/hr UNSCH PRN IV For Phosphorus < 2.5 mg/dL 06/12/16 07:15 Potassium Chloride (KCl 40 Meq/30 ml Liq) 40 meq UNSCH PRN PO/TUBE SEE LABEL COMMENTS 06/12/16 07:15 Potassium Phosphate 2000 mg 2,000 mg UNSCH PRN PO/TUBE SEE LABEL COMMENTS 06/12/16 07:15 Potassium Phosphate/Sodium Chloride (Potassium Phosphate Inj/NS 250 ml Inj) 260 ml @ 42 mls/hr UNSCH PRN IV SEE LABEL COMMENTS 06/12/16 07:15 IV Flush (NS Flush) See Protocol DAILY IVF 06/23/16 09:00 07/08/16 08:54 IV Flush (NS Flush) See Protocol UNSCH PRN IVF SEE PROTOCOL TABLE 06/22/16 12:30 IV Flush See Protocol UNSCH PRN IVF SEE PROTOCOL TABLE 06/22/16 12:30 Fluconazole/ Sodium Chloride 400 ml @ 200 mls/hr Q24H IV 06/22/16 14:00 07/07/16 14:08 Fluconazole/ Sodium Chloride (Diflucan 400 Mg Premix Bag) 400 ml @ 200 mls/hr Q24H IV 06/23/16 16:00 07/07/16 16:27 Thiamine HCl (Vitamin B1) 100 mg DAILY PO 06/28/16 09:00 07/08/16 08:54 Water (Free Water) 50 ml Q6HR PEG 06/28/16 12:00 07/08/16 06:00 Diphenhydramine HCl (Benadryl Inj) 25 mg Q6HR PRN IV pruritis 07/03/16 12:00 07/03/16 14:53 Polyethylene Glycol (Miralax) 17 gm Q12H PO 07/03/16 20:00 07/04/16 20:41 Metoclopramide HCl (Reglan Inj) 5 mg Q8HR IV PUSH 07/03/16 14:00 07/08/16 13:59 07/08/16 05:05 Metoprolol Tartrate (Lopressor) 25 mg Q12HR PO 07/07/16 09:00 07/08/16 08:59 Hydralazine HCl (Apresoline Inj) 10 mg Q1HR PRN IV PUSH SBP>160, DBP>90 07/07/16 09:00 Labetalol HCl (Trandate Inj) 10 mg Q1HR PRN IV PUSH SBP>160, DBP>90, HR>65 07/07/16 09:00 (Anusha Hastings) Medical Decision Making MDM Remarks 55 y/o male s/p posterior fossa craniectomy for evacuation of cerebellar bleed due to AVM with embolization at [facility] s/p ventriculostomy placement for CSF leak, resolved CSF leak, evidence of hydrocephalus and increased seroma following clamping of ventriculostomy drain ventriculitis with growth of Hermila, intraventricular Ampho B tx completed ( Anusha Hastings) Plan Plan Remarks pt pulled out his ventriculostomy drain last night may need ventriculostomy replacement vs placement of CONCRETE POURING SUPERVISOR shunt, f/u 07/07/16 CSF reculture currently stable neuro examination (Anusha Hastings) Attending Statement The exam, history, and the medical decision-making described in the above note were completed with the assistance of the mid-level provider. I reviewed and agree with the findings presented. I attest that I had a [id number] encounter with the patient on the same day, and personally performed and documented my assessment and findings in the medical record. Very awake and interactive although baseline confusion persists. Patient pulled out his ventriculostomy last night and Dr. Escobedo was made aware and recommended observation per nursing staff since there was minimal drainage from the ventriculostomy with normal ICPs. 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 He will need ventriculoperitoneal shunt placement once his final cultures particularly for Hermila given the previous infection are negative and may also require repair of the pseudomeningocele. In the meantime if his neurologic condition were to deteriorate then ventriculostomy will be replaced. (Clark Diallo MD) Anusha Hastings Jul 08, 2016 09:47 Clark Diallo MD Jul 08, 2016 17:06
--- NOTE | 2016-07-08 11:45 | HHI.CCPN ---
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 The patient underwent placement of right frontal external ventricular drain for acute hydrocephalus and was transferred to [facility] for further treatment of the AVM by embolization followed by suboccipital craniotomy for hematoma evacuation and AVM resection. Postoperatively, he was slow to wake up, his EVD was Clamped and removed and his mental status was improving. Other complications include the UTI and agitation. He was started on Rocephin and Seroquel. The patient is being transferred back to [facility] due to confusion and CSF leak. EVD was placed. He was found to have budding yeast, pseudohyphae in CSF and Enterococcus in blood. 06/30: Currently resting in bed in no acute distress with mittens and vest restraint. Afebrile. Tolerating diet. No bowel movement past 24 hours. 07/01: Resting in bed in no acute distress. Very verbal this morning. Afebrile. No bowel movement this morning. 07/02: Afebrile. 2 episodes of emesis yesterday since resolved. Denies abdominal pain. Tolerating tube feeding. One bowel movement. 07/03: Afebrile. One emesis overnight. KUB unremarkable liver function tests within normal limits. Denies nausea right now. Complaining of itchiness. 07/04: Resting in bed. Ventriculostomy currently at -5 cm [address]2O. Noted on CT shows increase of fluid collection in the left cerebellar postoperative changed somewhat 4.2 cm. lateral fourth ventricle is mildly enlarged. Will need NATIONAL RECRUITER shunt once infection clear. 07/05: Afebrile. Currently resting in bed with ventriculostomy at -5 cm H2O. Negative growth to date from CSF from 06/30. Currently complains of being "cold ". 07/06/16: Afebrile. Currently resting in bed having a bowel movement. Denies chest pain, short of breath. Confusion at baseline. 07/07/16: Afebrile. Request removal of soft wrist restraints. He is more hypertensive today. Denies chest pain or shortness of breath. Subjective 07/08/16: Overnight, patient did pull out his NATIONAL RECRUITER shunt. Afebrile. 4 bowel movements.. Tolerating tube feeding. Currently sitting in chair pulling at his dressings. Objective Vital Signs Date Time Temp Pulse Resp B/P Pulse Ox O2 Delivery O2 Flow Rate FiO2 07/08/16 10:00 99 07/08/16 08:00 98.2 13 133/79 98 07/06/16 09:34 21 Intake and Output 07/07/16 07/07/16 07/08/16 08:00 16:00 00:00 Intake Total 614 ml 812 ml 460 ml Output Total 500 ml 800 ml 700 ml Balance 114 ml 12 ml -240 ml Result Diagram: 07/07/16 0500 07/07/16 0500 Other Results Microbiology Date/Time Procedure Status Source Growth 07/07/16 07:40 Fungal Smear - Final Resulted Cerebral Spinal Fluid Shunt Fluid NO FUNGAL ELEMENTS SEEN. 07/07/16 07:40 Fungal Culture Resulted Cerebral Spinal Fluid Shunt Fluid Pending 07/07/16 07:40 Acid Fast Stain Received Cerebral Spinal Fluid Shunt Fluid Pending 07/07/16 07:40 Mycobacterial Culture Received Cerebral Spinal Fluid Shunt Fluid Pending 07/07/16 07:10 Gram Stain - Final Resulted Cerebral Spinal Fluid Shunt Fluid 07/07/16 07:10 CSF Culture - Preliminary Resulted Cerebral Spinal Fluid Shunt Fluid NO GROWTH IN 24 HOURS. Imaging Last Impressions Lower Extremity Ultrasound 07/05/16 0000 Signed Impressions: Service Date/Time: Tuesday, July 05, 2016 11:28 - CONCLUSION: Normal examination. Jese Malik MD Head CT 07/04/16 0600 Signed Impressions: Service Date/Time: Monday, July 04, 2016 04:27 - CONCLUSION: 1. Postoperative changes in the left cerebellum with multiple coils again seen. 2. The fluid collection in the postoperative bed has increased in size now measuring 7.0 x 4.2 cm. 3. The ventricles are mildly dilated when compared to previous study. 4. Right frontal ventriculostomy catheter is unchanged in position. Altaf Alfaro MD Abdomen X-Ray 07/01/16 0000 Signed Impressions: Service Date/Time: Friday, July 01, 2016 17:33 - CONCLUSION: Benign abdomen. Probable PEG tube in place Don López MD Chest X-Ray 06/22/16 0000 Signed Impressions: Service Date/Time: Wednesday, June 22, 2016 12:54 - CONCLUSION: No acute cardiopulmonary disease identified. Tommy Ramirez MD ADDENDUM: There is a right arm PICC appropriately positioned, tip at the atriocaval junction. Brian Hu MD Objective Remarks GENERAL: 55-year-old male, critically ill currently sitting in chair in no acute distress SKIN: Warm and dry. No rash. HEAD: Dry posterior wound, clean, healing well. Right NATIONAL RECRUITER shunt pulled out NECK: Supple. No thyromegaly lymphadenopathy or carotid bruits. CARDIOVASCULAR: RRR. S1, S2. Without murmurs or clicks, gallops or rubs. RESPIRATORY: Few mobile secretions, clear with cough. Air entry equal bilaterally GASTROINTESTINAL: Abdomen soft, non-tender, nondistended. Normoactive BS MUSCULOSKELETAL: Warm, well perfused. Neuro: Oriented to person. Pupils are equal bilaterally reactive. Moves all 4 extremities spontaneously. Conversant. follows commands. 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 - status post AVM embolization at [facility] followed by suboccipital craniotomy for hematoma evacuation and AVM resection - EVD wean per NS - Neurochecks per ICU routine - Keppra 500 mg twice a day for seizure prophylaxis - Strict BP control CSF leak - repaired - EVD was removed by patient overnight. Either replacement EVD versus new NATIONAL RECRUITER shunt. Per neurosurgery - awaiting ID clearance Continue Seroquel 25 mg twice a day Head CT 07/04 revealed increasing left cerebellar hygroma 7x4 centimeters. Will need NATIONAL RECRUITER shunt once cleared by ID. CVS Hypertension - Metoprolol 25 mg every 12 hours to be continued - continue Telemetry RESP: Currently on room air. GI: Acute protein calorie malnutritionmild - Continue Jevity 1.5 goal 50 cc an hour with Reglan initiated for motility - mechanical soft diet - advance to regular as tolerated Colace Senokot for bowel regimen has been held due to multiple bowel movements Pepcid for GI prophylaxis Day #5 of 5 of Reglan for bowel prokinetic agent KUB 07/01 revealed nonspecific bowel gas pattern. : Condom catheter in place. HEME: Normocytic anemia - Does not meet transfusion triggers at this time. - Daily CBC ID: Hermila Ventriculitis - intraventricular Amphotericin B administration. Last dose 06/30 - systemic D/Gera - right ventriculostomy 06/03, replaced 06/12 - Continue systemic Diflucan 800 mg IV daily - management per ID - no growth on a sample 06/23 - repeat CSF on Thursday06/30/2016 no growth Enterococcus Bacteremia - Completed course of Vanc IV 06/24 Pertinent cultures Blood cultures 2 - 06/09 - Micrococcus/Enterococcus Faecium/coag negative staph CSF 06/10 and 06/12 - Hermila CSF - 06/30 - Gram stain/fungal cultures no growth CSF - 1/2 - abstain/fungal/AFB no growth CSF glucose [id number] Renal: Monitor urine output. Creatinine within normal limits FEN - continue free water to 50cc every 6 - ICU electrolyte protocol Prophylaxis: GI Prophylaxis Pepcid 20 mg twice a day: DVT Prophylaxis - SCDs - Heparin subQ Level 2 Problem Qualifiers (1) UTI (urinary tract infection): (2) Cerebellar hemorrhage: Qualified Code: I61.4 - Nontraumatic intracerebral hemorrhage of cerebellum, unspecified laterality Darrick Dasilva MD Jul 08, 2016 11:45
[2016-07-08 13:46] LABS: APTT (PATIENT) 22.5 SEC (24.3-30.1); INTERNATIONAL NORMALIZED RATIO 1.1 RATIO; PROTHROMBIN TIME - PATIENT 12.4 SEC (9.8-11.6)
[2016-07-08] MEDS: FLUCONAZOLE 400 MG PREMIX BAG 400 ML IV SCH ×2 (13:56→15:54)
[2016-07-09] VITALS (12 sets, daily range): BP systolic 76–154; BP diastolic 54–90; PULSE 58–82; RESP 10–14; TEMP 97.1–98.5; O2SAT 95–100
[2016-07-09] MEDS: CHLORHEXIDINE GLUCONATE 2 % 1 PACK (2 CLOTHS) TOP SCH (04:00)
[2016-07-09 05:03] LABS: BASOPHIL % 0.9 % (0.0-2.0); EOSINOPHIL # 0.2 TH/MM3 (0-0.4); EOSINOPHIL % 2.9 % (0.0-4.0); HEMATOCRIT 33.2 % (39.0-51.0); HEMO FLAGS DIFF FINAL; LYMPH % 27.1 % (9.0-44.0); LYMPHOCYTE # 1.4 TH/MM3 (1.0-4.8); MEAN CELL VOLUME 88.4 FL (80.0-100.0); MEAN CORPUSCULAR HEMOGLOBIN 30.2 PG (27.0-34.0); MEAN CORPUSCULAR HGB CONC 34.1 % (32.0-36.0); MONO % 12.6 % (0.0-8.0); NEUT % 56.5 % (16.0-70.0); PLATELET COUNT 208 TH/MM3 (150-450); RED BLOOD COUNT 3.75 MIL/MM3 (4.50-5.90); RED CELL DISTRIBUTION WIDTH 14.2 % (11.6-17.2); WHITE BLOOD COUNT 5.3 TH/MM3 (4.0-11.0)
[2016-07-09 05:28] LABS: ALKALINE PHOSPHATASE 112 U/L (45-117); ALT (GPT) 27 U/L (12-78); ANION GAP 9 MEQ/L (5-15); AST (GOT) 13 U/L (15-37); BLOOD UREA NITROGEN 19 MG/DL (7-18); CHLORIDE 103 MEQ/L (98-107); GLOMERULAR FILTRATION RATE 98 ML/MIN (>89); POTASSIUM 3.6 MEQ/L (3.5-5.1); SODIUM (NA) 142 MEQ/L (136-145); TOTAL BILIRUBIN ADULT 0.3 MG/DL (0.2-1.0)
[2016-07-09] MEDS: FREE WATER PEG SCH ×3 (06:00→18:00)
[2016-07-09] MEDS: POLYETHYLENE GLYCOL 17 GM PKG PO SCH ×2 (07:33→20:00)
[2016-07-09] MEDS: SODIUM CHLORIDE 0.9% FLUSH 5 ML FLUSH IV FLUSH SCH ×2 (09:00→20:41)
[2016-07-09] MEDS: levETIRAcetam 500 MG TAB PO SCH ×2 (09:36→20:41)
[2016-07-09] MEDS: QUEtiapine FUMARATE 25 MG TAB PO SCH ×2 (09:36→20:41)
[2016-07-09] MEDS: THIAMINE HCL 100 MG TAB PO SCH (09:36)
[2016-07-09] MEDS: METOPROLOL TARTRATE 25 MG TAB PO SCH ×2 (09:36→20:41)
[2016-07-09] MEDS: FAMOTIDINE 20 MG TAB NG SCH ×2 (09:36→20:41)
[2016-07-09] MEDS: HEPARIN SODIUM - SQ 10,000 UNITS/ML VIAL SQ SCH ×2 (09:36→20:41)
--- NOTE | 2016-07-09 11:20 | HHI.NSPN ---
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 The patient underwent placement of right frontal external ventricular drain for acute hydrocephalus and was transferred to [facility] for further treatment of the AVM by embolization followed by suboccipital craniotomy for hematoma evacuation, and AVM resection at [facility] . Postoperatively, he was slow to wake up, his EVD was Clamped and removed at [facility] and his mental status was improving. He had UTI and agitation. He was started on Rocephin and Seroquel. The patient was being transferred back to [facility] due to confusion and CSF leak. 06/04: s/p placement of ventriculostomy drain. no further leaking noted from posterior fossa wound, there has been scab formation also. 06/05: no wound leak seen 06/06: appears more awake today, wound dry, no evidence of CSF leaking overnight 06/09: wound dry, sitting up in chair eating breakfast 06/10: follow up CT Brain reviewed 06/11: prelim CSF testing shows elevated WBCs, proteins with low glucose, 06/12: CSF showing fungal growth, intraventricular ampho b ordered 06/13: EVD draining, no significant changes to neuro checks overnight 06/16: neuro checks stable overnight, alert, pleasantly confused today 06/17: intermittently confused, working with PT, repeat CSF cx pending 06/18: intermittent complaints of headaches yesterday, currently denies HAs, moves all four extremities, reported no allergic type rx following administration of intraventric ampho 06/19: reported SCHULTZ following ampho b adminstration that resolves, no changed in mental status or neuro checks 06/20: pleasantly confused, neuro checks stable overnight. 06/23: sitting up in chair, stably confused. 06/24: repeat CSF fungal stain neg, cultures pending 06/25: about to sit up in chair for breakfast, only transferring short distance from bed to chair and he is reported to still be quite ataxic. Final fungal smear reports no fungal elements seen. 06/26: denies headaches, feels his head is clearer 06/27: room moved to across nursing station, requesting milkshake for breakfast. 06/28: stable neuro checks, denies headaches, stably confused, follows simple commands 06/29: doing well, unchanged overnight 07/02: challenging EVD, minimal output at 10 cm H20, neuro checks stable. Intraventric ampho dc'ed per ID 07/03: mental status reported to be unchanged, had vomited once yesterday 07/04: EVD clamped since yesterday, f/u CT Brain completed this am, no change in his neuro checks, remains alert, stably confused, sitting up in stretcher chair and working with PT 07/08/16: Patient pulled EVD out last night, currently alert, stable mental status. Repeat CSF cx obtained yesterday 07/09/16: denies headaches, nausea, vomiting. no mental status changes, awake, alert, intermittently confused. posterior fossa wound remains dry (Anusha Hastings) Labs, Micro, & Vital Signs Results Date Time Temp Pulse Resp B/P Pulse Ox O2 Delivery O2 Flow Rate FiO2 07/09/16 06:00 66 07/09/16 04:00 70 12 152/82 99 07/09/16 04:00 70 07/09/16 02:00 66 07/09/16 00:00 60 07/09/16 00:00 98.0 60 10 153/78 100 07/08/16 22:00 66 07/08/16 20:00 98.0 96 24 145/89 100 07/08/16 20:00 96 07/08/16 18:00 82 07/08/16 16:00 98.6 100 30 144/85 100 07/08/16 16:00 100 07/08/16 14:00 99 07/08/16 12:00 98.3 93 8 128/78 97 07/08/16 12:00 93 07/09/16 06:59 Intake Total 741 ml Balance 741 ml Constitutional Vital Signs Date Time Temp Pulse Resp B/P Pulse Ox O2 Delivery O2 Flow Rate FiO2 07/09/16 06:00 66 07/09/16 04:00 70 12 152/82 99 07/09/16 04:00 70 07/09/16 02:00 66 07/09/16 00:00 60 07/09/16 00:00 98.0 60 10 153/78 100 07/08/16 22:00 66 07/08/16 20:00 98.0 96 24 145/89 100 07/08/16 20:00 96 07/08/16 18:00 82 07/08/16 16:00 98.6 100 30 144/85 100 07/08/16 16:00 100 07/08/16 14:00 99 07/08/16 12:00 98.3 93 8 128/78 97 07/08/16 12:00 93 07/09/16 06:59 Intake Total 741 ml Balance 741 ml (Anusha Hastings) Review of Systems/Exam Exam Mr. Badillo is laying in bed. Alert, oriented to name only. Confused which remains unchanged. Follows commands. Posterior fossa wound is dry, healing well without evidence of infection. Posterior fossa wound site is soft to palpate, with some fullness CN: pupils 3 mm equal, EOMs intact, no nystagmus. facial appears symmetric at rest, tongue protrude midline Motor: moves grossly all four extremities symmetrically to command, on upper extremity restraints. Strength appears normal all extremities. Sensory: reports intact to light touch x 4 DTRs 2+ b/l Lungs: clear b/l (Anusha Hastings) Medications Current Medications Current Medications Medications (Trade) Dose Ordered Sig/Paula Route PRN Reason Start Time Stop Time Status Last Admin Dose Admin Naloxone HCl (Narcan Inj) 0.4 mg UNSCH PRN IV SEE LABEL COMMENTS 05/29/16 15:00 Acetaminophen/ Butalbital/ Caffeine (Fioricet 325-50-40) 1 tab Q6H PRN PO PAIN GREATER THAN 5 or headach 05/29/16 15:00 07/06/16 00:52 Heparin Sodium (Porcine) (Heparin Inj) 5,000 units Q12HR SQ 05/29/16 21:00 07/09/16 09:36 Levetriacetam (Keppra) 500 mg Q12HR PO 05/29/16 21:00 07/09/16 09:36 Morphine Sulfate (Morphine Inj) 2 mg Q3H PRN IV PUSH BREAKTHROUGH PAIN 06/02/16 10:30 07/08/16 20:08 Diphenhydramine HCl (Benadryl 2% Cream) 1 applic TID PRN TOPICAL ITCHING 06/02/16 11:15 IV Flush (NS Flush) 2 ml UNSCH PRN IV FLUSH FLUSH AFTER USING IV ACCESS 06/03/16 09:45 IV Flush (NS Flush) 2 ml BID IV FLUSH 06/03/16 21:00 07/08/16 20:09 Acetaminophen (Tylenol) 650 mg Q6H PRN PO FEVER >100F 06/03/16 09:45 06/22/16 09:11 Ondansetron HCl (Zofran Inj) 4 mg Q6H PRN IV NAUSEA OR VOMITING 06/03/16 09:45 07/08/16 08:54 Docusate Sodium (Colace) 100 mg BID PO 06/03/16 21:00 Hold 07/04/16 08:16 Sennosides (Senokot) 17.2 mg BID PO 06/03/16 09:45 Hold 07/04/16 20:41 Miscellaneous Information 1 Q361D XX 06/03/16 09:45 Chlorhexidine Gluconate (Chlorhexidine 2% Cloth) Taper DAILY@04 TOP 06/04/16 04:00 05/31/17 03:59 06/25/16 04:00 Chlorhexidine Gluconate 3 pack 3 pack UNSCH PRN TOP HYGIENIC CARE 06/03/16 09:45 Sodium Chloride (NS 1000 ml Inj) 1,000 ml @ 100 mls/hr Q10H IV 06/03/16 21:16 Hold 06/05/16 22:23 Famotidine (Pepcid) 20 mg BID NG 06/04/16 09:00 07/09/16 09:36 Quetiapine Fumarate (SEROquel) 25 mg BID PO 06/06/16 09:00 07/09/16 09:36 Loperamide HCl (Imodium Liq) 2 mg UNSCH PRN TUBE DIARRHEA 06/06/16 16:15 07/03/16 14:57 Hydrocortisone Sodium Succinate 25 mg 25 mg Q24H PRN IV PRE-MED PRIOR TO AMPHOTERCIN B 06/11/16 17:00 06/30/16 09:54 Potassium Chloride 100 ml @ 50 mls/hr Q2H PRN IV For Potassium 2.8 - 3.2 mEq/L 06/12/16 07:15 06/23/16 09:43 Potassium Chloride (KCl 20 Meq Premix Inj) 100 ml @ 50 mls/hr Q2H PRN IV For Potassium 2.8 - 3.2 mEq/L 06/12/16 07:15 06/26/16 11:32 Potassium Chloride 40 meq 40 meq UNSCH PRN PO/TUBE For Potassium 3.3 - 3.5 mEq/L 06/12/16 07:15 06/28/16 06:33 Potassium Chloride 100 ml @ 25 mls/hr UNSCH PRN IV For Potassium 3.3 - 3.5 mEq/L 06/12/16 07:15 Potassium Chloride 100 ml @ 50 mls/hr Q2H PRN IV For Potassium 3.3 - 3.5 mEq/L 06/12/16 07:15 06/26/16 09:24 Magnesium Sulfate/ Sodium Chloride (Magnesium Sulfate Inj/NS Inj) 100 ml @ 50 mls/hr UNSCH PRN IV For Magnesium 0.9 - 1.1 mg/dL 06/12/16 07:15 Magnesium Oxide 800 mg 800 mg UNSCH PRN PO For Magnesium 1.2 - 1.6 mg/dL 06/12/16 07:15 Magnesium Sulfate/ Sodium Chloride (Magnesium Sulfate Inj/NS Inj) 100 ml @ 50 mls/hr UNSCH PRN IV For Magnesium 1.2 - 1.6 mg/dL 06/12/16 07:15 Potassium Phosphate 2000 mg 2,000 mg Q4H PRN PO For Phosphorus < 2.5 mg/dL 06/12/16 07:15 Sodium Phosphate/ Sodium Chloride (Sodium Phosphate Inj/NS 250 ml Inj) 250 ml @ 42 mls/hr UNSCH PRN IV For Phosphorus < 2.5 mg/dL 06/12/16 07:15 Potassium Chloride (KCl 40 Meq/30 ml Liq) 40 meq UNSCH PRN PO/TUBE SEE LABEL COMMENTS 06/12/16 07:15 Potassium Phosphate 2000 mg 2,000 mg UNSCH PRN PO/TUBE SEE LABEL COMMENTS 06/12/16 07:15 Potassium Phosphate/Sodium Chloride (Potassium Phosphate Inj/NS 250 ml Inj) 260 ml @ 42 mls/hr UNSCH PRN IV SEE LABEL COMMENTS 06/12/16 07:15 IV Flush (NS Flush) See Protocol DAILY IVF 06/23/16 09:00 07/09/16 09:00 IV Flush (NS Flush) See Protocol UNSCH PRN IVF SEE PROTOCOL TABLE 06/22/16 12:30 IV Flush See Protocol UNSCH PRN IVF SEE PROTOCOL TABLE 06/22/16 12:30 Fluconazole/ Sodium Chloride 400 ml @ 200 mls/hr Q24H IV 06/22/16 14:00 07/08/16 13:56 Fluconazole/ Sodium Chloride (Diflucan 400 Mg Premix Bag) 400 ml @ 200 mls/hr Q24H IV 06/23/16 16:00 07/08/16 15:54 Thiamine HCl (Vitamin B1) 100 mg DAILY PO 06/28/16 09:00 07/09/16 09:36 Water (Free Water) 50 ml Q6HR PEG 06/28/16 12:00 07/09/16 06:00 Diphenhydramine HCl (Benadryl Inj) 25 mg Q6HR PRN IV pruritis 07/03/16 12:00 07/03/16 14:53 Polyethylene Glycol (Miralax) 17 gm Q12H PO 07/03/16 20:00 07/04/16 20:41 Metoprolol Tartrate (Lopressor) 25 mg Q12HR PO 07/07/16 09:00 07/09/16 09:36 Hydralazine HCl (Apresoline Inj) 10 mg Q1HR PRN IV PUSH SBP>160, DBP>90 07/07/16 09:00 Labetalol HCl (Trandate Inj) 10 mg Q1HR PRN IV PUSH SBP>160, DBP>90, HR>65 07/07/16 09:00 (Anusha Hastings) Medical Decision Making MDM Remarks 55 y/o male s/p posterior fossa craniectomy for evacuation of cerebellar bleed due to AVM with embolization at [facility] s/p ventriculostomy placement for CSF leak, resolved CSF leak, evidence of hydrocephalus and increased seroma following clamping of ventriculostomy drain ventriculitis with growth of Hermila, intraventricular Ampho B tx completed ( Anusha Hastings) Plan Plan Remarks treatment plan per Dr. Boles who is covering for Dr. Flowers today clinically stable, will obtain repeat CT Brain tomorrow morning cont close neuro checks in [facility] encourage to increase mobilization out of bed to chair dw nursing (Anusha Hastings) Anusha Hastings Jul 09, 2016 11:20 Moe Boles Jul 09, 2016 12:44
[2016-07-09] MEDS ORDERED: SODIUM CHLORID 0.9% 500 ML INJ 500 ML IV ONE (12:45)
--- NOTE | 2016-07-09 12:54 | HHI.CCPN ---
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 The patient underwent placement of right frontal external ventricular drain for acute hydrocephalus and was transferred to [facility] for further treatment of the AVM by embolization followed by suboccipital craniotomy for hematoma evacuation and AVM resection. Postoperatively, he was slow to wake up, his EVD was Clamped and removed and his mental status was improving. Other complications include the UTI and agitation. He was started on Rocephin and Seroquel. The patient is being transferred back to [facility] due to confusion and CSF leak. EVD was placed. He was found to have budding yeast, pseudohyphae in CSF and Enterococcus in blood. 06/30: Currently resting in bed in no acute distress with mittens and vest restraint. Afebrile. Tolerating diet. No bowel movement past 24 hours. 07/01: Resting in bed in no acute distress. Very verbal this morning. Afebrile. No bowel movement this morning. 07/02: Afebrile. 2 episodes of emesis yesterday since resolved. Denies abdominal pain. Tolerating tube feeding. One bowel movement. 07/03: Afebrile. One emesis overnight. KUB unremarkable liver function tests within normal limits. Denies nausea right now. Complaining of itchiness. 07/04: Resting in bed. Ventriculostomy currently at -5 cm [address]2O. Noted on CT shows increase of fluid collection in the left cerebellar postoperative changed somewhat 4.2 cm. lateral fourth ventricle is mildly enlarged. Will need SHAKE SPLITTER shunt once infection clear. 07/05: Afebrile. Currently resting in bed with ventriculostomy at -5 cm H2O. Negative growth to date from CSF from 06/30. Currently complains of being "cold ". 07/06/16: Afebrile. Currently resting in bed having a bowel movement. Denies chest pain, short of breath. Confusion at baseline. 07/07/16: Afebrile. Request removal of soft wrist restraints. He is more hypertensive today. Denies chest pain or shortness of breath. 07/08/16: Overnight, patient did pull out his SHAKE SPLITTER shunt. Afebrile. 4 bowel movements.. Tolerating tube feeding. Currently sitting in chair pulling at his dressings. Subjective 07/09: Somewhat lethargic this afternoon. Received bolus after tube feeds held for nausea. More awake and alert at the present time. Normalized. Plan for SHAKE SPLITTER shunt near future. All cultures /2 of CSF no growth to date. Objective Vital Signs Date Time Temp Pulse Resp B/P Pulse Ox O2 Delivery O2 Flow Rate FiO2 07/09/16 10:00 82 07/09/16 08:00 98.4 14 150/90 95 07/06/16 09:34 21 Intake and Output 07/08/16 07/08/16 07/09/16 08:00 16:00 00:00 Intake Total 100 ml 472 ml Output Total 0 ml Balance 0 ml 100 ml 472 ml Result Diagram: 07/09/16 0430 07/09/16 0430 Other Results Microbiology Date/Time Procedure Status Source Growth 07/07/16 07:40 Fungal Smear - Final Resulted Cerebral Spinal Fluid Shunt Fluid NO FUNGAL ELEMENTS SEEN. 07/07/16 07:40 Fungal Culture Resulted Cerebral Spinal Fluid Shunt Fluid Pending 07/07/16 07:40 Acid Fast Stain - Final Resulted Cerebral Spinal Fluid Shunt Fluid NO ACID FAST BACILLI SEEN 07/07/16 07:40 Mycobacterial Culture Resulted Cerebral Spinal Fluid Shunt Fluid Pending 07/07/16 07:10 Gram Stain - Final Resulted Cerebral Spinal Fluid Shunt Fluid 07/07/16 07:10 CSF Culture - Preliminary Resulted Cerebral Spinal Fluid Shunt Fluid NO GROWTH IN 48 HOURS. Imaging Last Impressions Lower Extremity Ultrasound 07/05/16 0000 Signed Impressions: Service Date/Time: Tuesday, July 05, 2016 11:28 - CONCLUSION: Normal examination. Jese Malik MD Head CT 07/04/16 0600 Signed Impressions: Service Date/Time: Monday, July 04, 2016 04:27 - CONCLUSION: 1. Postoperative changes in the left cerebellum with multiple coils again seen. 2. The fluid collection in the postoperative bed has increased in size now measuring 7.0 x 4.2 cm. 3. The ventricles are mildly dilated when compared to previous study. 4. Right frontal ventriculostomy catheter is unchanged in position. Altaf Alfaro MD Abdomen X-Ray 07/01/16 0000 Signed Impressions: Service Date/Time: Friday, July 01, 2016 17:33 - CONCLUSION: Benign abdomen. Probable PEG tube in place Don López MD Chest X-Ray 06/22/16 0000 Signed Impressions: Service Date/Time: Wednesday, June 22, 2016 12:54 - CONCLUSION: No acute cardiopulmonary disease identified. Tommy Ramirez MD ADDENDUM: There is a right arm PICC appropriately positioned, tip at the atriocaval junction. Brian Hu MD Objective Remarks GENERAL: 55-year-old male, critically ill currently sitting in chair in no acute distress SKIN: Warm and dry. No rash. HEAD: Dry posterior wound, clean, healing well. Right SHAKE SPLITTER shunt pulled out NECK: Supple. No thyromegaly lymphadenopathy or carotid bruits. CARDIOVASCULAR: RRR. S1, S2. Without murmurs or clicks, gallops or rubs. RESPIRATORY: Few mobile secretions, clear with cough. Air entry equal bilaterally GASTROINTESTINAL: Abdomen soft, non-tender, nondistended. Normoactive BS MUSCULOSKELETAL: Warm, well perfused. Neuro: Oriented to person. Pupils are equal bilaterally reactive. Moves all 4 extremities spontaneously. Conversant. follows commands. Urinary Catheter: No Assessment to: Continue 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 - status post AVM embolization at [facility] followed by suboccipital craniotomy for hematoma evacuation and AVM resection - EVD wean per NSGY - Neurochecks per ICU routine - Keppra 500 mg twice a day for seizure prophylaxis - Strict BP control CSF leak - repaired - EVD was removed by patient overnight. Either replacement EVD versus new SHAKE SPLITTER shunt. Per neurosurgery - awaiting ID clearance Continue Seroquel 25 mg twice a day Head CT 07/04 revealed increasing left cerebellar hygroma 7x4 centimeters. Will need SHAKE SPLITTER shunt once cleared by ID. CVS Hypertension - Metoprolol 25 mg every 12 hours to be continued - continue Telemetry RESP: Currently on room air. GI: Acute protein calorie malnutritionmild - Continue Jevity 1.5 goal 50 cc an hour - mechanical soft diet - advance to regular as tolerated Colace Senokot for bowel regimen has been held due to multiple bowel movements Pepcid for GI prophylaxis KUB 07/01 revealed nonspecific bowel gas pattern. : Condom catheter in place. HEME: Normocytic anemia - Does not meet transfusion triggers at this time. - Daily CBC ID: Hermila Ventriculitis - intraventricular Amphotericin B administration. Last dose 06/30 - systemic D/Gera - right ventriculostomy 06/03, replaced 06/12 - Continue systemic Diflucan 800 mg IV daily - management per ID - no growth on a sample 06/23 - repeat CSF on Thursday06/30/2016 and 07/07/2016 no growth Enterococcus Bacteremia - Completed course of Vanc IV 06/24 Pertinent cultures Blood cultures 2 - 06/09 - Micrococcus/Enterococcus Faecium/coag negative staph CSF 06/10 and 06/12 - Hermila CSF - 06/30 - Gram stain/fungal cultures no growth CSF - / - abstain/fungal/AFB no growth CSF glucose [id number] Renal: Monitor urine output. Creatinine within normal limits FEN - continue free water to 50cc every 6 - ICU electrolyte protocol Prophylaxis: GI Prophylaxis Pepcid 20 mg twice a day: DVT Prophylaxis - SCDs - Heparin subQ Level 2 Problem Qualifiers (1) UTI (urinary tract infection): (2) Cerebellar hemorrhage: Qualified Code: I61.4 - Nontraumatic intracerebral hemorrhage of cerebellum, unspecified laterality Darrick Dasilva MD Jul 09, 2016 12:54
--- NOTE | 2016-07-09 14:33 | HHI.IDPN ---
Subjective Subjective Remarks ID COVERAGE Chart reviewed is a 55 y/o CM with AVM S/P coiling. On Rx for Hermila ventriculitis Notes reviewed Patient pulled EVD 2 nights ago To have repeat CT head tomorrow Temps ok Last (+) CSF C/S from 06/12 CSF C/S 06/16, 06/23 and 06/30 and 1/2 negative Sleeping, awakens from sleep Antibiotics Diflucan IV Lines Line sites with no e/o infection Past Medical History AVM s/p coil Allergies: Coded Allergies: Oxycodone (Unverified Allergy, Intermediate, ITCHY, 01/16/16) Objective . Vital Signs Date Time Temp Pulse Resp B/P Pulse Ox O2 Delivery O2 Flow Rate FiO2 07/09/16 12:30 118/73 07/09/16 12:00 68 07/09/16 12:00 97.1 68 12 76/54 100 07/09/16 10:00 82 07/09/16 08:00 80 07/09/16 08:00 98.4 76 14 150/90 95 07/09/16 06:00 66 07/09/16 04:00 70 12 152/82 99 07/09/16 04:00 70 07/09/16 02:00 66 07/09/16 00:00 60 07/09/16 00:00 98.0 60 10 153/78 100 07/08/16 22:00 66 07/08/16 20:00 98.0 96 24 145/89 100 07/08/16 20:00 96 07/08/16 18:00 82 07/08/16 16:00 98.6 100 30 144/85 100 07/08/16 16:00 100 07/08/16 07/08/16 07/09/16 15:00 23:00 07:00 Intake Total 100 ml 472 ml 169 ml Balance 100 ml 472 ml 169 ml IV Total 0 ml 412 ml 169 ml Tube Feeding 0 ml Other 100 ml 60 ml # Voids 2 3 3 # Bowel Movements 0 1 . Laboratory Tests Test 07/09/16 04:30 White Blood Count 5.3 TH/MM3 Red Blood Count 3.75 MIL/MM3 Hemoglobin 11.3 GM/DL Hematocrit 33.2 % Mean Corpuscular Volume 88.4 FL Mean Corpuscular Hemoglobin 30.2 PG Mean Corpuscular Hemoglobin 34.1 % Concent Red Cell Distribution Width 14.2 % Platelet Count 208 TH/MM3 Mean Platelet Volume 8.6 FL Neutrophils (%) (Auto) 56.5 % Lymphocytes (%) (Auto) 27.1 % Monocytes (%) (Auto) 12.6 % Eosinophils (%) (Auto) 2.9 % Basophils (%) (Auto) 0.9 % Neutrophils # (Auto) 3.0 TH/MM3 Lymphocytes # (Auto) 1.4 TH/MM3 Monocytes # (Auto) 0.7 TH/MM3 Eosinophils # (Auto) 0.2 TH/MM3 Basophils # (Auto) 0.0 TH/MM3 CBC Comment DIFF FINAL Differential Comment Laboratory Tests Test 07/09/16 04:30 Sodium Level 142 MEQ/L Potassium Level 3.6 MEQ/L Chloride Level 103 MEQ/L Carbon Dioxide Level 30.0 MEQ/L Anion Gap 9 MEQ/L Blood Urea Nitrogen 19 MG/DL Creatinine 0.82 MG/DL Estimat Glomerular Filtration 98 ML/MIN Rate Random Glucose 90 MG/DL Calcium Level 9.5 MG/DL Phosphorus Level 3.9 MG/DL Magnesium Level 2.0 MG/DL Total Bilirubin 0.3 MG/DL Aspartate Amino Transf 13 U/L (AST/SGOT) Alanine Aminotransferase 27 U/L (ALT/SGPT) Alkaline Phosphatase 112 U/L Total Protein 6.6 GM/DL Albumin 3.2 GM/DL Microbiology Date/Time Procedure Status Source Growth 07/07/16 07:10 Gram Stain - Final Resulted Cerebral Spinal Fluid Shunt Fluid 07/07/16 07:10 CSF Culture - Preliminary Resulted Cerebral Spinal Fluid Shunt Fluid NO GROWTH IN 48 HOURS. 07/07/16 07:40 Acid Fast Stain - Final Resulted Cerebral Spinal Fluid Shunt Fluid NO ACID FAST BACILLI SEEN 07/07/16 07:40 Mycobacterial Culture Resulted Cerebral Spinal Fluid Shunt Fluid Pending 07/07/16 07:40 Fungal Smear - Final Resulted Cerebral Spinal Fluid Shunt Fluid NO FUNGAL ELEMENTS SEEN. 07/07/16 07:40 Fungal Culture Resulted Cerebral Spinal Fluid Shunt Fluid Pending Imaging Lower Extremity Ultrasound 07/05/16 0000 Signed Impressions: Service Date/Time: Tuesday, July 05, 2016 11:28 - CONCLUSION: Normal examination. Jese Malik MD Head CT 07/04/16 0600 Signed Impressions: Service Date/Time: Monday, July 04, 2016 04:27 - CONCLUSION: 1. Postoperative changes in the left cerebellum with multiple coils again seen. 2. The fluid collection in the postoperative bed has increased in size now measuring 7.0 x 4.2 cm. 3. The ventricles are mildly dilated when compared to previous study. 4. Right frontal ventriculostomy catheter is unchanged in position. Altaf Alfaro MD Abdomen X-Ray 07/01/16 0000 Signed Impressions: Service Date/Time: Friday, July 01, 2016 17:33 - CONCLUSION: Benign abdomen. Probable PEG tube in place Don López MD Chest X-Ray 06/22/16 0000 Signed Impressions: Service Date/Time: Wednesday, June 22, 2016 12:54 - CONCLUSION: No acute cardiopulmonary disease identified. Tommy Ramirez MD ADDENDUM: There is a right arm PICC appropriately positioned, tip at the atriocaval junction. Brian Hu MD Head CT 06/10/16 0600 Signed Impressions: Service Date/Time: Friday, June 10, 2016 05:01 - CONCLUSION: 1. 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 Locules of air within the fluid are decreasing since June 08. Right frontal ventriculostomy tube remains present with stable ventricular size. No hydrocephalus. Kirk Cortes MD Physical Exam GENERAL: Thin built, awakens easily SKIN: No rashes. Cool and dry. HEAD: Surgical site with no e/o infection. EYES: pink conjunctiva, no petechia or hemorrhage ENT: Nose without bleeding, or purulent drainage. Moist mucosa. NECK: Trachea midline.Supple, nontender, neck not very supple. CARDIOVASCULAR: Regular rate and rhythm. No murmur appreciated. RESPIRATORY: Clear to auscultation. Breath sounds equal bilaterally. No wheezes , rales, or rhonchi. GASTROINTESTINAL: Abdomen soft, non-tender, nondistended. MUSCULOSKELETAL: Extremities without clubbing, cyanosis, or edema. NEUROLOGICAL: Awakens from sleep. IV line sites with no e/o infection. Assessment & Plan Remarks Hermila albicans ventriculitis. MRI cannot be performed due to coils. - CSF counts better E.faecalis bacteremia: No central lines or PIVs. Treated. Repeat BCX negative. SIRS/Sepsis now controlled since Vanco IV started. AVM was transferred to [facility] for further treatment of the AVM by embolization followed by suboccipital craniotomy for hematoma evacuation and AVM resection. CSF leak and hydrocephalus s/p Rt sima hole and Ventriculostomy catheter placement 06/03/2016. s/p PICC placement. Recs: Continue Diflucan 800 mg IV every 24 hours. Follow new CSF C/S Monitor clinically For repeat CT head tomorrow Being eval for [employer] shunt Matilde Coulter MD Jul 09, 2016 14:33
[2016-07-09] MEDS: FLUCONAZOLE 400 MG PREMIX BAG 400 ML IV SCH ×2 (14:53)
[2016-07-10] VITALS (9 sets, daily range): BP systolic 147–165; BP diastolic 77–92; PULSE 58–69; RESP 11–23; TEMP 98.1–98.6; O2SAT 100
[2016-07-10] MEDS: CHLORHEXIDINE GLUCONATE 2 % 1 PACK (2 CLOTHS) TOP SCH (00:54)
[2016-07-10] MEDS: FREE WATER PEG SCH ×5 (00:54→23:54)
[2016-07-10] MEDS: ACETAMIN 325 MG/BUTALBITAL 50 MG/CAFFEINE 40 MG TAB PO PRN (00:58)
--- NOTE | 2016-07-10 04:35 | RADRPT ---
EXAM DATE/TIME: 07/10/2016 04:09 [place] COMPARISON: CT BRAIN W/O CONTRAST, July 04, 2016, 4:27. INDICATIONS : Follow up hydrocephalus. RADIATION DOSE: 31.90 CTDIvol (mGy) MEDICAL HISTORY : Carcinoma, rectal. SURGICAL HISTORY : Craniotomy. ENCOUNTER: Subsequent ACUITY: 1 month PAIN SCALE: 0/10 LOCATION: cranial TECHNIQUE: Multiple contiguous axial images were obtained of the head. Using automated exposure control and adj ustment of the mA and/or kV according to patient size, radiation dose was kept as low as reasonably a chievable to obtain optimal diagnostic quality images. FINDINGS: Since the previous examination there has been removal of the ventriculostomy. Mild ventriculomegaly i s unchanged. Brain parenchyma shows normal attenuation. Postsurgical changes involving the left cereb ellar hemisphere with large CSF filled space extending into the subcutaneous tissues. This is stable in size. No hemorrhage, acute infarction, or mass. Small volume pneumocephaly within the ventricles. The CONCLUSION: Interval removal of the ventriculostomy with stable size of the ventricles. Postoperative changes inv olving the posterior cranial fossa also stable. Francisco Nino Jr., MD on July 10, 2016 at 4:31 Board Certified Radiologist. This report was verified electronically.
[2016-07-10] MEDS: FAMOTIDINE 20 MG TAB NG SCH ×2 (08:52→20:46)
[2016-07-10] MEDS: METOPROLOL TARTRATE 25 MG TAB PO SCH ×2 (08:52→20:46)
[2016-07-10] MEDS: POLYETHYLENE GLYCOL 17 GM PKG PO SCH ×2 (08:52→20:00)
[2016-07-10] MEDS: QUEtiapine FUMARATE 25 MG TAB PO SCH ×2 (08:52→20:46)
[2016-07-10] MEDS: levETIRAcetam 500 MG TAB PO SCH ×2 (08:52→20:46)
[2016-07-10] MEDS: SODIUM CHLORIDE 0.9% FLUSH 5 ML FLUSH IV FLUSH SCH ×2 (08:53→20:47)
[2016-07-10] MEDS: HEPARIN SODIUM - SQ 10,000 UNITS/ML VIAL SQ SCH ×2 (08:53→20:46)
[2016-07-10] MEDS: THIAMINE HCL 100 MG TAB PO SCH (08:53)
--- NOTE | 2016-07-10 09:44 | HHI.CCPN ---
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 The patient underwent placement of right frontal external ventricular drain for acute hydrocephalus and was transferred to [facility] for further treatment of the AVM by embolization followed by suboccipital craniotomy for hematoma evacuation and AVM resection. Postoperatively, he was slow to wake up, his EVD was Clamped and removed and his mental status was improving. Other complications include the UTI and agitation. He was started on Rocephin and Seroquel. The patient is being transferred back to [facility] due to confusion and CSF leak. EVD was placed. He was found to have budding yeast, pseudohyphae in CSF and Enterococcus in blood. 06/30: Currently resting in bed in no acute distress with mittens and vest restraint. Afebrile. Tolerating diet. No bowel movement past 24 hours. 07/01: Resting in bed in no acute distress. Very verbal this morning. Afebrile. No bowel movement this morning. 07/02: Afebrile. 2 episodes of emesis yesterday since resolved. Denies abdominal pain. Tolerating tube feeding. One bowel movement. 07/03: Afebrile. One emesis overnight. KUB unremarkable liver function tests within normal limits. Denies nausea right now. Complaining of itchiness. 07/04: Resting in bed. Ventriculostomy currently at -5 cm H2O. Noted on CT shows increase of fluid collection in the left cerebellar postoperative changed somewhat 4.2 cm. lateral fourth ventricle is mildly enlarged. Will need OYSTER HARVESTER shunt once infection clear. 07/05: Afebrile. Currently resting in bed with ventriculostomy at -5 cm H2O. Negative growth to date from CSF from 06/30. Currently complains of being "cold ". 07/06/16: Afebrile. Currently resting in bed having a bowel movement. Denies chest pain, short of breath. Confusion at baseline. 07/07/16: Afebrile. Request removal of soft wrist restraints. He is more hypertensive today. Denies chest pain or shortness of breath. 07/08/16: Overnight, patient did pull out his OYSTER HARVESTER shunt. Afebrile. 4 bowel movements.. Tolerating tube feeding. Currently sitting in chair pulling at his dressings. 07/09: Somewhat lethargic this afternoon. Received bolus after tube feeds held for nausea. More awake and alert at the present time. Normalized. Plan for OYSTER HARVESTER shunt near future. All cultures 07/07 of CSF no growth to date. Subjective 07/10: Complained of headache overnight. CT head revealed stable mild ventriculomegaly otherwise unchanged with stable left cerebellar fluid collection. Afebrile. Continues to have intermittent nausea. Reglan has been resumed today. KUB pending. Arousable and will follow commands/verbal Objective Vital Signs Date Time Temp Pulse Resp B/P Pulse Ox O2 Delivery O2 Flow Rate FiO2 07/10/16 04:00 98.2 58 12 153/86 100 07/06/16 09:34 21 Intake and Output 07/09/16 07/09/16 07/10/16 08:00 16:00 00:00 Intake Total 169 ml 660 ml 602 ml Output Total 125 ml Balance 169 ml 660 ml 477 ml Result Diagram: 07/09/16 0430 07/09/16 0430 Other Results Microbiology Date/Time Procedure Status Source Growth 07/07/16 07:40 Fungal Smear - Final Resulted Cerebral Spinal Fluid Shunt Fluid NO FUNGAL ELEMENTS SEEN. 07/07/16 07:40 Fungal Culture Resulted Cerebral Spinal Fluid Shunt Fluid Pending 07/07/16 07:40 Acid Fast Stain - Final Resulted Cerebral Spinal Fluid Shunt Fluid NO ACID FAST BACILLI SEEN 07/07/16 07:40 Mycobacterial Culture Resulted Cerebral Spinal Fluid Shunt Fluid Pending 07/07/16 07:10 Gram Stain - Final Resulted Cerebral Spinal Fluid Shunt Fluid 07/07/16 07:10 CSF Culture - Preliminary Resulted Cerebral Spinal Fluid Shunt Fluid NO GROWTH IN [address] head - 07/10 - stable VM. Stable left cerebellar fluid collection. Last Impressions Lower Extremity Ultrasound 07/05/16 0000 Signed Impressions: Service Date/Time: Tuesday, July 05, 2016 11:28 - CONCLUSION: Normal examination. Jese Malik MD Head CT 07/04/16 0600 Signed Impressions: Service Date/Time: Monday, July 04, 2016 04:27 - CONCLUSION: 1. Postoperative changes in the left cerebellum with multiple coils again seen. 2. The fluid collection in the postoperative bed has increased in size now measuring 7.0 x 4.2 cm. 3. The ventricles are mildly dilated when compared to previous study. 4. Right frontal ventriculostomy catheter is unchanged in position. Altaf Alfaro MD Abdomen X-Ray 07/01/16 0000 Signed Impressions: Service Date/Time: Friday, July 01, 2016 17:33 - CONCLUSION: Benign abdomen. Probable PEG tube in place Don López MD Chest X-Ray 06/22/16 0000 Signed Impressions: Service Date/Time: Wednesday, June 22, 2016 12:54 - CONCLUSION: No acute cardiopulmonary disease identified. Tommy Ramirez MD ADDENDUM: There is a right arm PICC appropriately positioned, tip at the atriocaval junction. Brian Hu MD Objective Remarks GENERAL: 55-year-old male, critically ill currently resting in bed in no acute distress SKIN: Warm and dry. No rash. HEAD: Dry posterior wound, clean, healing well. Right OYSTER HARVESTER shunt pulled out with [address] NECK: Supple. No thyromegaly lymphadenopathy or carotid bruits. CARDIOVASCULAR: RRR. S1, S2. Without murmurs or clicks, gallops or rubs. RESPIRATORY: Few mobile secretions, clear with cough. Air entry equal bilaterally GASTROINTESTINAL: Abdomen soft, non-tender, nondistended. Normoactive BS MUSCULOSKELETAL: Warm, well perfused. Neuro: Oriented to person. Pupils are equal bilaterally reactive. Moves all 4 extremities spontaneously. Conversant. follows commands. 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 - status post AVM embolization at [facility] followed by suboccipital craniotomy for hematoma evacuation and AVM resection - EVD wean per NSGY - Neurochecks per ICU routine - Keppra 500 mg twice a day for seizure prophylaxis - Strict BP control CSF leak - repaired - EVD was removed by patient overnight. Either replacement EVD versus new OYSTER HARVESTER shunt. Per neurosurgery - awaiting ID clearance Continue Seroquel 25 mg twice a day Head CT 07/04 revealed increasing left cerebellar hygroma 7x4 centimeters. Will need OYSTER HARVESTER shunt once cleared by ID. CT at 07/10 revealed stable left VM and stable left cerebellar hygroma CVS Hypertension - Metoprolol 25 mg every 12 hours to be continued - continue Telemetry RESP: Currently on room air. GI: Acute protein calorie malnutritionmild - Continue Jevity 1.5 goal 50 cc an hour - mechanical soft diet - advance to regular as tolerated Colace Senokot for bowel regimen has been held due to multiple bowel movements Pepcid for GI prophylaxis Start Reglan 5 mg IV every 6 8 hours for prokinetic agent KUB 07/01 revealed nonspecific bowel gas pattern. Recheck today : Condom catheter in place. HEME: Normocytic anemia - Does not meet transfusion triggers at this time. - Daily CBC ID: Hermila Ventriculitis - intraventricular Amphotericin B administration. Last dose 06/30 - systemic D/Gera - right ventriculostomy 06/03, replaced 06/12 - Continue systemic Diflucan 800 mg IV daily - management per ID - no growth on a sample 06/23 - repeat CSF on Thursday06/30/2016 and 07/07/2016 no growth Enterococcus Bacteremia - Completed course of Vanc IV 06/24 Pertinent cultures Blood cultures 2 - 06/09 - Micrococcus/Enterococcus Faecium/coag negative staph CSF 06/10 and 06/12 - Hermila CSF - 06/30 - Gram stain/fungal cultures no growth CSF - / - abstain/fungal/AFB no growth CSF glucose 62/ Renal: Monitor urine output. Creatinine within normal limits FEN - continue free water to 50cc every 6 - ICU electrolyte protocol Prophylaxis: GI Prophylaxis Pepcid 20 mg twice a day: DVT Prophylaxis - SCDs - Heparin subQ Level 2 Problem Qualifiers (1) UTI (urinary tract infection): (2) Cerebellar hemorrhage: Qualified Code: I61.4 - Nontraumatic intracerebral hemorrhage of cerebellum, unspecified laterality Darrick Dasilva MD Jul 10, 2016 09:44
[2016-07-10] MEDS ORDERED: METOCLOPRAMIDE HCL 10 MG/2 ML VIAL IV PUSH SCH (09:45)
--- NOTE | 2016-07-10 09:53 | HHI.NSPN ---
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 The patient underwent placement of right frontal external ventricular drain for acute hydrocephalus and was transferred to [facility] for further treatment of the AVM by embolization followed by suboccipital craniotomy for hematoma evacuation, and AVM resection at [facility] . Postoperatively, he was slow to wake up, his EVD was Clamped and removed at [facility] and his mental status was improving. He had UTI and agitation. He was started on Rocephin and Seroquel. The patient was being transferred back to [facility] due to confusion and CSF leak. 06/04: s/p placement of ventriculostomy drain. no further leaking noted from posterior fossa wound, there has been scab formation also. 06/05: no wound leak seen 06/06: appears more awake today, wound dry, no evidence of CSF leaking overnight 06/09: wound dry, sitting up in chair eating breakfast 06/10: follow up CT Brain reviewed 06/11: prelim CSF testing shows elevated WBCs, proteins with low glucose, 06/12: CSF showing fungal growth, intraventricular ampho b ordered 06/13: EVD draining, no significant changes to neuro checks overnight 06/16: neuro checks stable overnight, alert, pleasantly confused today 06/17: intermittently confused, working with PT, repeat CSF cx pending 06/18: intermittent complaints of headaches yesterday, currently denies HAs, moves all four extremities, reported no allergic type rx following administration of intraventric ampho 06/19: reported SCHULTZ following ampho b adminstration that resolves, no changed in mental status or neuro checks 06/20: pleasantly confused, neuro checks stable overnight. 06/23: sitting up in chair, stably confused. 06/24: repeat CSF fungal stain neg, cultures pending 06/25: about to sit up in chair for breakfast, only transferring short distance from bed to chair and he is reported to still be quite ataxic. Final fungal smear reports no fungal elements seen. 06/26: denies headaches, feels his head is clearer 06/27: room moved to across nursing station, requesting milkshake for breakfast. 06/28: stable neuro checks, denies headaches, stably confused, follows simple commands 06/29: doing well, unchanged overnight 07/02: challenging EVD, minimal output at 10 cm H20, neuro checks stable. Intraventric ampho dc'ed per ID 07/03: mental status reported to be unchanged, had vomited once yesterday 07/04: EVD clamped since yesterday, f/u CT Brain completed this am, no change in his neuro checks, remains alert, stably confused, sitting up in stretcher chair and working with PT 07/08/16: Patient pulled EVD out last night, currently alert, stable mental status. Repeat CSF cx obtained yesterday 07/09/16: denies headaches, nausea, vomiting. no mental status changes, awake, alert, intermittently confused. posterior fossa wound remains dry 07/10/16: neuro checks stable overnight, denies headaches, vomiting (Anusha Hastings) Labs, Micro, & Vital Signs Results Date Time Temp Pulse Resp B/P Pulse Ox O2 Delivery O2 Flow Rate FiO2 07/10/16 08:00 98.3 69 17 147/77 100 07/10/16 08:00 69 07/10/16 04:00 98.2 58 12 153/86 100 07/10/16 01:58 16 07/10/16 00:00 98.3 62 17 165/82 100 07/09/16 20:00 98.1 58 12 154/81 100 07/09/16 20:00 63 07/09/16 18:00 60 07/09/16 16:00 68 07/09/16 16:00 98.5 68 14 148/84 100 07/09/16 14:00 66 07/09/16 12:30 118/73 07/09/16 12:00 68 07/09/16 12:00 97.1 68 12 76/54 100 07/09/16 10:00 82 07/10/16 06:59 Intake Total 1538 ml Output Total 450 ml Balance 1088 ml Constitutional Vital Signs Date Time Temp Pulse Resp B/P Pulse Ox O2 Delivery O2 Flow Rate FiO2 07/10/16 08:00 98.3 69 17 147/77 100 07/10/16 08:00 69 07/10/16 04:00 98.2 58 12 153/86 100 07/10/16 01:58 16 07/10/16 00:00 98.3 62 17 165/82 100 07/09/16 20:00 98.1 58 12 154/81 100 07/09/16 20:00 63 07/09/16 18:00 60 07/09/16 16:00 68 07/09/16 16:00 98.5 68 14 148/84 100 07/09/16 14:00 66 07/09/16 12:30 118/73 07/09/16 12:00 68 07/09/16 12:00 97.1 68 12 76/54 100 07/09/16 10:00 82 07/10/16 06:59 Intake Total 1538 ml Output Total 450 ml Balance 1088 ml (Anusha Hastings) Review of Systems/Exam Exam Mr. Badillo is laying in bed. Alert, oriented to name only and place today said he is in hospital. Confused which remains unchanged. Follows commands. Posterior fossa wound is dry, healing well without evidence of infection. Posterior fossa crani site is soft to palpate, with some fullness CN: pupils 3 mm equal, EOMs intact, no nystagmus. facial appears symmetric at rest, tongue protrude midline Motor: moves grossly all four extremities symmetrically to command, on upper extremity restraints. Strength appears normal all extremities. Sensory: reports intact to light touch x 4 DTRs 2+ b/l Lungs: clear b/l (Anusha Hastings) Medications Current Medications Current Medications Medications (Trade) Dose Ordered Sig/Paula Route PRN Reason Start Time Stop Time Status Last Admin Dose Admin Naloxone HCl (Narcan Inj) 0.4 mg UNSCH PRN IV SEE LABEL COMMENTS 05/29/16 15:00 Acetaminophen/ Butalbital/ Caffeine (Fioricet 325-50-40) 1 tab Q6H PRN PO PAIN GREATER THAN 5 or headach 05/29/16 15:00 07/10/16 00:58 Heparin Sodium (Porcine) (Heparin Inj) 5,000 units Q12HR SQ 05/29/16 21:00 07/10/16 08:53 Levetriacetam (Keppra) 500 mg Q12HR PO 05/29/16 21:00 07/10/16 08:52 Morphine Sulfate (Morphine Inj) 2 mg Q3H PRN IV PUSH BREAKTHROUGH PAIN 06/02/16 10:30 07/08/16 20:08 Diphenhydramine HCl (Benadryl 2% Cream) 1 applic TID PRN TOPICAL ITCHING 06/02/16 11:15 IV Flush (NS Flush) 2 ml UNSCH PRN IV FLUSH FLUSH AFTER USING IV ACCESS 06/03/16 09:45 IV Flush (NS Flush) 2 ml BID IV FLUSH 06/03/16 21:00 07/09/16 20:41 Acetaminophen (Tylenol) 650 mg Q6H PRN PO FEVER >100F 06/03/16 09:45 06/22/16 09:11 Ondansetron HCl (Zofran Inj) 4 mg Q6H PRN IV NAUSEA OR VOMITING 06/03/16 09:45 07/08/16 08:54 Docusate Sodium (Colace) 100 mg BID PO 06/03/16 21:00 Hold 07/04/16 08:16 Sennosides (Senokot) 17.2 mg BID PO 06/03/16 09:45 Hold 07/04/16 20:41 Miscellaneous Information 1 Q361D XX 06/03/16 09:45 Chlorhexidine Gluconate (Chlorhexidine 2% Cloth) Taper DAILY@04 TOP 06/04/16 04:00 05/31/17 03:59 06/25/16 04:00 Chlorhexidine Gluconate 3 pack 3 pack UNSCH PRN TOP HYGIENIC CARE 06/03/16 09:45 Sodium Chloride (NS 1000 ml Inj) 1,000 ml @ 100 mls/hr Q10H IV 06/03/16 21:16 Hold 06/05/16 22:23 Famotidine (Pepcid) 20 mg BID NG 06/04/16 09:00 07/10/16 08:52 Quetiapine Fumarate (SEROquel) 25 mg BID PO 06/06/16 09:00 07/10/16 08:52 Loperamide HCl (Imodium Liq) 2 mg UNSCH PRN TUBE DIARRHEA 06/06/16 16:15 07/03/16 14:57 Hydrocortisone Sodium Succinate 25 mg 25 mg Q24H PRN IV PRE-MED PRIOR TO AMPHOTERCIN B 06/11/16 17:00 06/30/16 09:54 Potassium Chloride 100 ml @ 50 mls/hr Q2H PRN IV For Potassium 2.8 - 3.2 mEq/L 06/12/16 07:15 06/23/16 09:43 Potassium Chloride (KCl 20 Meq Premix Inj) 100 ml @ 50 mls/hr Q2H PRN IV For Potassium 2.8 - 3.2 mEq/L 06/12/16 07:15 06/26/16 11:32 Potassium Chloride 40 meq 40 meq UNSCH PRN PO/TUBE For Potassium 3.3 - 3.5 mEq/L 06/12/16 07:15 06/28/16 06:33 Potassium Chloride 100 ml @ 25 mls/hr UNSCH PRN IV For Potassium 3.3 - 3.5 mEq/L 06/12/16 07:15 Potassium Chloride 100 ml @ 50 mls/hr Q2H PRN IV For Potassium 3.3 - 3.5 mEq/L 06/12/16 07:15 06/26/16 09:24 Magnesium Sulfate/ Sodium Chloride (Magnesium Sulfate Inj/NS Inj) 100 ml @ 50 mls/hr UNSCH PRN IV For Magnesium 0.9 - 1.1 mg/dL 06/12/16 07:15 Magnesium Oxide 800 mg 800 mg UNSCH PRN PO For Magnesium 1.2 - 1.6 mg/dL 06/12/16 07:15 Magnesium Sulfate/ Sodium Chloride (Magnesium Sulfate Inj/NS Inj) 100 ml @ 50 mls/hr UNSCH PRN IV For Magnesium 1.2 - 1.6 mg/dL 06/12/16 07:15 Potassium Phosphate 2000 mg 2,000 mg Q4H PRN PO For Phosphorus < 2.5 mg/dL 06/12/16 07:15 Sodium Phosphate/ Sodium Chloride (Sodium Phosphate Inj/NS 250 ml Inj) 250 ml @ 42 mls/hr UNSCH PRN IV For Phosphorus < 2.5 mg/dL 06/12/16 07:15 Potassium Chloride (KCl 40 Meq/30 ml Liq) 40 meq UNSCH PRN PO/TUBE SEE LABEL COMMENTS 06/12/16 07:15 Potassium Phosphate 2000 mg 2,000 mg UNSCH PRN PO/TUBE SEE LABEL COMMENTS 06/12/16 07:15 Potassium Phosphate/Sodium Chloride (Potassium Phosphate Inj/NS 250 ml Inj) 260 ml @ 42 mls/hr UNSCH PRN IV SEE LABEL COMMENTS 06/12/16 07:15 IV Flush (NS Flush) See Protocol DAILY IVF 06/23/16 09:00 07/10/16 08:53 IV Flush (NS Flush) See Protocol UNSCH PRN IVF SEE PROTOCOL TABLE 06/22/16 12:30 IV Flush See Protocol UNSCH PRN IVF SEE PROTOCOL TABLE 06/22/16 12:30 Fluconazole/ Sodium Chloride 400 ml @ 200 mls/hr Q24H IV 06/22/16 14:00 07/09/16 14:53 Fluconazole/ Sodium Chloride (Diflucan 400 Mg Premix Bag) 400 ml @ 200 mls/hr Q24H IV 06/23/16 16:00 07/09/16 14:53 Thiamine HCl (Vitamin B1) 100 mg DAILY PO 06/28/16 09:00 07/10/16 08:53 Water (Free Water) 50 ml Q6HR PEG 06/28/16 12:00 07/10/16 06:08 Diphenhydramine HCl (Benadryl Inj) 25 mg Q6HR PRN IV pruritis 07/03/16 12:00 07/03/16 14:53 Polyethylene Glycol (Miralax) 17 gm Q12H PO 07/03/16 20:00 07/10/16 08:52 Metoprolol Tartrate (Lopressor) 25 mg Q12HR PO 07/07/16 09:00 07/10/16 08:52 Hydralazine HCl (Apresoline Inj) 10 mg Q1HR PRN IV PUSH SBP>160, DBP>90 07/07/16 09:00 Labetalol HCl (Trandate Inj) 10 mg Q1HR PRN IV PUSH SBP>160, DBP>90, HR>65 07/07/16 09:00 Metoclopramide HCl (Reglan Inj) 5 mg Q8HR IV PUSH 07/10/16 09:45 (Anusha Hastings) Medical Decision Making MDM Remarks 55 y/o male s/p posterior fossa craniectomy for evacuation of cerebellar bleed due to AVM with embolization at [facility] s/p ventriculostomy placement for CSF leak, resolved CSF leak, evidence of hydrocephalus and increased seroma following clamping of ventriculostomy drain ventriculitis with growth of Hermila, intraventricular Ampho B tx completed stable neuro examination following pulling out his ventriculostomy drain on (Anusha Hastings) Plan Plan Remarks neuro exam remains unchanged cont close neuro checks in [facility] may need shunting upon Dr. Flowers return dw nursing (Anusha Hastings) Attending Statement The exam, history, and the medical decision-making described in the above note were completed with the assistance of the mid-level provider. I reviewed and agree with the findings presented. I attest that I had a [id number] encounter with the patient on the same day, and personally performed and documented my assessment and findings in the medical record. (Clark Diallo MD) Anusha Hastings Jul 10, 2016 09:53 Clark Diallo MD Jul 10, 2016 17:36
--- NOTE | 2016-07-10 10:52 | RADRPT ---
EXAM DATE/TIME: 07/10/2016 09:57 [place] COMPARISON: ABDOMEN KUB ONLY, July 01, 2016, 17:33. INDICATIONS : Evaluate for Ileus. MEDICAL HISTORY : Carcinoma, rectal. Smoker. SURGICAL HISTORY : None. ENCOUNTER: Initial ACUITY: 1 week PAIN SCORE: Non-responsive. LOCATION: Abdomen. FINDINGS: Gastrostomy tube is noted. Intestinal gas pattern is nonspecific and benign. No suspicious calcific d ensities are noted. Nothing to suggest mass orbits or megaly. Stable degenerative changes in the spin e hips CONCLUSION: Stable nonspecific benign abdomen appearance Brian Vasquez MD on July 10, 2016 at 10:40 Board Certified Radiologist. This report was verified electronically.
[2016-07-10] MEDS ORDERED: SODIUM CHLORID 0.9% 500 ML INJ 500 ML IV ONE (13:45)
[2016-07-10] MEDS ORDERED: SODIUM CHLORID 0.9% 500 ML INJ 500 ML IV SCH (14:00)
[2016-07-10] MEDS: FLUCONAZOLE 400 MG PREMIX BAG 400 ML IV SCH ×2 (15:05→17:07)
[2016-07-10] MEDS: METOCLOPRAMIDE HCL 10 MG/2 ML VIAL IV PUSH SCH (17:08)
[2016-07-11] VITALS (8 sets, daily range): BP systolic 115–153; BP diastolic 71–88; PULSE 56–83; RESP 11–20; TEMP 97.8–98.8; O2SAT 100
[2016-07-11] MEDS: METOCLOPRAMIDE HCL 10 MG/2 ML VIAL IV PUSH SCH ×3 (02:00→18:00)
[2016-07-11] MEDS: CHLORHEXIDINE GLUCONATE 2 % 1 PACK (2 CLOTHS) TOP SCH (04:00)
[2016-07-11 05:29] LABS: AUTOMATED NEUTROPHIL # 6.4 TH/MM3 (1.8-7.7); BASOPHIL % 0.4 % (0.0-2.0); EOSINOPHIL # 0.1 TH/MM3 (0-0.4); EOSINOPHIL % 1.6 % (0.0-4.0); HEMATOCRIT 31.2 % (39.0-51.0); HEMO FLAGS DIFF FINAL; LYMPH % 13.8 % (9.0-44.0); LYMPHOCYTE # 1.1 TH/MM3 (1.0-4.8); MEAN CELL VOLUME 88.4 FL (80.0-100.0); MEAN CORPUSCULAR HEMOGLOBIN 30.4 PG (27.0-34.0); MEAN CORPUSCULAR HGB CONC 34.4 % (32.0-36.0); MONO % 7.2 % (0.0-8.0); PLATELET COUNT 193 TH/MM3 (150-450); RED BLOOD COUNT 3.53 MIL/MM3 (4.50-5.90); RED CELL DISTRIBUTION WIDTH 13.8 % (11.6-17.2); WHITE BLOOD COUNT 8.3 TH/MM3 (4.0-11.0)
[2016-07-11 05:49] LABS: ALT (GPT) 24 U/L (12-78); ANION GAP 8 MEQ/L (5-15); AST (GOT) 9 U/L (15-37); BICARBONATE 31.4 MEQ/L (21.0-32.0); BLOOD UREA NITROGEN 17 MG/DL (7-18); CHLORIDE 105 MEQ/L (98-107); GLOMERULAR FILTRATION RATE 112 ML/MIN (>89); MAGNESIUM 1.8 MG/DL (1.5-2.5); POTASSIUM 3.1 MEQ/L (3.5-5.1); SODIUM (NA) 144 MEQ/L (136-145)
[2016-07-11 05:52] LABS: ALKALINE PHOSPHATASE 95 U/L (45-117); TOTAL BILIRUBIN ADULT 0.2 MG/DL (0.2-1.0)
[2016-07-11] MEDS: FREE WATER PEG SCH ×3 (06:00→18:00)
[2016-07-11 06:02] LABS: CREATINE KINASE 16 U/L (39-308)
[2016-07-11] MEDS: POTASSIUM CHLOR 40 MEQ PREMIX 100 ML IV PRN ×2 (07:00→09:24)
[2016-07-11] MEDS: POLYETHYLENE GLYCOL 17 GM PKG PO SCH ×2 (07:32→20:00)
[2016-07-11] MEDS: SODIUM CHLORIDE 0.9% FLUSH 5 ML FLUSH IV FLUSH SCH ×2 (09:00→20:38)
[2016-07-11] MEDS: THIAMINE HCL 100 MG TAB PO SCH (09:24)
[2016-07-11] MEDS: FAMOTIDINE 20 MG TAB NG SCH ×2 (09:24→20:37)
[2016-07-11] MEDS: QUEtiapine FUMARATE 25 MG TAB PO SCH ×2 (09:24→20:37)
[2016-07-11] MEDS: METOPROLOL TARTRATE 25 MG TAB PO SCH ×2 (09:24→20:37)
[2016-07-11] MEDS: levETIRAcetam 500 MG TAB PO SCH ×2 (09:24→20:37)
[2016-07-11] MEDS: HEPARIN SODIUM - SQ 10,000 UNITS/ML VIAL SQ SCH ×2 (09:24→20:37)
[2016-07-11] MEDS: FLUCONAZOLE 400 MG PREMIX BAG 400 ML IV SCH ×2 (13:54→16:00)
--- NOTE | 2016-07-11 14:06 | HHI.CCPN ---
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 The patient underwent placement of right frontal external ventricular drain for acute hydrocephalus and was transferred to [facility] for further treatment of the AVM by embolization followed by suboccipital craniotomy for hematoma evacuation and AVM resection. Postoperatively, he was slow to wake up, his EVD was Clamped and removed and his mental status was improving. Other complications include the UTI and agitation. He was started on Rocephin and Seroquel. The patient is being transferred back to [facility] due to confusion and CSF leak. EVD was placed. He was found to have budding yeast, pseudohyphae in CSF and Enterococcus in blood. 06/30: Currently resting in bed in no acute distress with mittens and vest restraint. Afebrile. Tolerating diet. No bowel movement past 24 hours. 07/01: Resting in bed in no acute distress. Very verbal this morning. Afebrile. No bowel movement this morning. 07/02: Afebrile. 2 episodes of emesis yesterday since resolved. Denies abdominal pain. Tolerating tube feeding. One bowel movement. 07/03: Afebrile. One emesis overnight. KUB unremarkable liver function tests within normal limits. Denies nausea right now. Complaining of itchiness. 07/04: Resting in bed. Ventriculostomy currently at -5 cm [address]O. Noted on CT shows increase of fluid collection in the left cerebellar postoperative changed somewhat 4.2 cm. lateral fourth ventricle is mildly enlarged. Will need PHARMACY ASSOCIATE shunt once infection clear. 07/05: Afebrile. Currently resting in bed with ventriculostomy at -5 cm H2O. Negative growth to date from CSF from 06/30. Currently complains of being "cold ". 07/06/16: Afebrile. Currently resting in bed having a bowel movement. Denies chest pain, short of breath. Confusion at baseline. 07/07/16: Afebrile. Request removal of soft wrist restraints. He is more hypertensive today. Denies chest pain or shortness of breath. 07/08/16: Overnight, patient did pull out his PHARMACY ASSOCIATE shunt. Afebrile. 4 bowel movements.. Tolerating tube feeding. Currently sitting in chair pulling at his dressings. 07/09: Somewhat lethargic this afternoon. Received bolus after tube feeds held for nausea. More awake and alert at the present time. Normalized. Plan for PHARMACY ASSOCIATE shunt near future. All cultures 07/07 of CSF no growth to date. 07/10: Complained of headache overnight. CT head revealed stable mild ventriculomegaly otherwise unchanged with stable left cerebellar fluid collection. Afebrile. Continues to have intermittent nausea. Reglan has been resumed today. KUB pending. Arousable and will follow commands/verbal Subjective 07/11: Resting in chair. Tolerating tube feedings without nausea today. Remains in mid restraints. Denies headache currently. No vision change. No chest pain Objective Vital Signs Date Time Temp Pulse Resp B/P Pulse Ox O2 Delivery O2 Flow Rate FiO2 07/11/16 12:00 98.6 62 16 115/78 100 Intake and Output 07/10/16 07/10/16 07/11/16 08:00 16:00 00:00 Intake Total 276 ml 734 ml 772 ml Output Total 325 ml 500 ml 450 ml Balance -49 ml 234 ml 322 ml Result Diagram: 07/11/16 0502 07/11/16 0502 Other Results Microbiology Date/Time Procedure Status Source Growth 07/07/16 07:40 Fungal Smear - Final Resulted Cerebral Spinal Fluid Shunt Fluid NO FUNGAL ELEMENTS SEEN. 07/07/16 07:40 Fungal Culture Resulted Cerebral Spinal Fluid Shunt Fluid Pending 07/07/16 07:40 Acid Fast Stain - Final Resulted Cerebral Spinal Fluid Shunt Fluid NO ACID FAST BACILLI SEEN 07/07/16 07:40 Mycobacterial Culture Resulted Cerebral Spinal Fluid Shunt Fluid Pending 07/07/16 07:10 Gram Stain - Final Complete Cerebral Spinal Fluid Shunt Fluid 07/07/16 07:10 CSF Culture - Final Complete Cerebral Spinal Fluid Shunt Fluid NO GROWTH IN 72 HRS.--AEROBICALLY OR ... Imaging Last Impressions Abdomen X-Ray 07/10/16 0937 Signed Impressions: Service Date/Time: July 09:57 - CONCLUSION: Stable nonspecific benign abdomen appearance Brian Vasquez MD Head CT 07/10/16 0600 Signed Impressions: Service Date/Time: July 04:09 - CONCLUSION: Interval removal of the ventriculostomy with stable size of the ventricles. Postoperative changes involving the posterior cranial fossa also stable. Francisco Nino Jr., MD Lower Extremity Ultrasound 07/05/16 0000 Signed Impressions: Service Date/Time: Tuesday, July 05, 2016 11:28 - CONCLUSION: Normal examination. Jese Malik MD Chest X-Ray 06/22/16 0000 Signed Impressions: Service Date/Time: Wednesday, June 22, 2016 12:54 - CONCLUSION: No acute cardiopulmonary disease identified. Tommy Ramirez MD ADDENDUM: There is a right arm PICC appropriately positioned, tip at the atriocaval junction. Brian Hu MD Objective Remarks GENERAL: 55-year-old male, critically ill currently resting in bed in no acute distress SKIN: Warm and dry. No rash. HEAD: Dry posterior wound, clean, healing well. Right PHARMACY ASSOCIATE shunt pulled out with [address] NECK: Supple. No thyromegaly lymphadenopathy or carotid bruits. CARDIOVASCULAR: RRR. S1, S2. Without murmurs or clicks, gallops or rubs. RESPIRATORY: Few mobile secretions, clear with cough. Air entry equal bilaterally GASTROINTESTINAL: Abdomen soft, non-tender, nondistended. Normoactive BS MUSCULOSKELETAL: Warm, well perfused. Neuro: Oriented to person. Pupils are equal bilaterally reactive. Moves all 4 extremities spontaneously. Conversant. follows commands. Urinary Catheter: Yes Assessment to: Continue Chavez insert reason: Prolonged Immobilization 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 - status post AVM embolization at [facility] followed by suboccipital craniotomy for hematoma evacuation and AVM resection - EVD wean per NSGY - Neurochecks per ICU routine - Keppra 500 mg twice a day for seizure prophylaxis - Strict BP control CSF leak - repaired - EVD was removed by patient overnight. Either replacement EVD versus new PHARMACY ASSOCIATE shunt. Per neurosurgery - awaiting ID clearance Continue Seroquel 25 mg twice a day Head CT 07/04 revealed increasing left cerebellar hygroma 7x4 centimeters. Will need PHARMACY ASSOCIATE shunt once cleared by ID. CT at 07/10 revealed stable left VM and stable left cerebellar hygroma CVS Hypertension - Metoprolol 25 mg every 12 hours to be continued - continue Telemetry RESP: Currently on room air. GI: Acute protein calorie malnutritionmild - Continue Jevity 1.5 goal 50 cc an hour - mechanical soft diet - advance to regular as tolerated Colace Senokot for bowel regimen has been held due to multiple bowel movements Pepcid for GI prophylaxis Start Reglan 5 mg IV every 6 8 hours for prokinetic agent KUB 07/01 revealed nonspecific bowel gas pattern. Recheck today : Condom catheter in place. HEME: Normocytic anemia - Does not meet transfusion triggers at this time. - Daily CBC ID: Hermila Ventriculitis - intraventricular Amphotericin B administration. Last dose 06/30 - systemic D/Gera - right ventriculostomy 06/03, replaced 06/12 - Continue systemic Diflucan 800 mg IV daily - management per ID - no growth on a sample 06/23 - repeat CSF on Thursday06/30/2016 and 07/07/2016 no growth Enterococcus Bacteremia - Completed course of Vanc IV 06/24 Pertinent cultures Blood cultures 2 - 06/09 - Micrococcus/Enterococcus Faecium/coag negative staph CSF 06/10 and 06/12 - Hermila CSF - 06/30 - Gram stain/fungal cultures no growth CSF - 07/07 - abstain/fungal/AFB no growth CSF glucose 62/ Renal: Monitor urine output. Creatinine within normal limits FEN Hypokalemia 40 mEq KCl 1. - continue free water to 50cc every 6 - ICU electrolyte protocol Prophylaxis: GI Prophylaxis Pepcid 20 mg twice a day: DVT Prophylaxis - SCDs - Heparin subQ Level 2 Problem Qualifiers (1) UTI (urinary tract infection): (2) Cerebellar hemorrhage: Qualified Code: I61.4 - Nontraumatic intracerebral hemorrhage of cerebellum, unspecified laterality Darrick Dasilva MD Jul 11, 2016 14:06
[2016-07-11] MEDS ORDERED: POTASSIUM CL 40 MEQ/30 ML LIQ UDC NG ONE (14:15)
--- NOTE | 2016-07-11 15:02 | HHI.IDPN ---
Subjective Subjective Remarks ID COVERAGE Notes reviewed D/W RN Repeat CT 07/10 - stable ventriculomegaly Temps ok Last (+) CSF C/S from 06/12 CSF C/S 06/16, 06/23 and 06/30 and 07/07 negative is a 55 y/o CM with AVM S/P coiling. On Rx for Hermila ventriculitis Antibiotics Diflucan IV Lines Line sites with no e/o infection Past Medical History AVM s/p coil Allergies: Coded Allergies: Oxycodone (Unverified Allergy, Intermediate, ITCHY, 01/16/16) Objective . Vital Signs Date Time Temp Pulse Resp B/P Pulse Ox O2 Delivery O2 Flow Rate FiO2 07/11/16 14:00 66 07/11/16 12:00 98.6 62 16 115/78 100 07/11/16 12:00 62 07/11/16 10:00 83 07/11/16 08:00 64 07/11/16 08:00 98.5 67 20 133/80 100 07/11/16 04:00 97.8 62 13 147/76 100 07/11/16 00:00 98.8 56 11 153/88 100 07/10/16 20:00 98.3 68 23 155/92 100 07/10/16 18:00 64 07/10/16 16:00 64 07/10/16 16:00 98.6 64 16 150/82 100 07/10/16 07/10/16 07/11/16 15:00 23:00 07:00 Intake Total 734 ml 772 ml 580 ml Output Total 500 ml 450 ml 450 ml Balance 234 ml 322 ml 130 ml IV Total 600 ml 412 ml 80 ml Tube Feeding 84 ml 300 ml 350 ml Tube Irrigant 50 ml 60 ml 50 ml Other 100 ml Output Urine Total 500 ml 450 ml 450 ml # Bowel Movements 1 1 0 . Laboratory Tests Test 07/11/16 05:02 White Blood Count 8.3 TH/MM3 Red Blood Count 3.53 MIL/MM3 Hemoglobin 10.7 GM/DL Hematocrit 31.2 % Mean Corpuscular Volume 88.4 FL Mean Corpuscular Hemoglobin 30.4 PG Mean Corpuscular Hemoglobin 34.4 % Concent Red Cell Distribution Width 13.8 % Platelet Count 193 TH/MM3 Mean Platelet Volume 8.5 FL Neutrophils (%) (Auto) 77.0 % Lymphocytes (%) (Auto) 13.8 % Monocytes (%) (Auto) 7.2 % Eosinophils (%) (Auto) 1.6 % Basophils (%) (Auto) 0.4 % Neutrophils # (Auto) 6.4 TH/MM3 Lymphocytes # (Auto) 1.1 TH/MM3 Monocytes # (Auto) 0.6 TH/MM3 Eosinophils # (Auto) 0.1 TH/MM3 Basophils # (Auto) 0.0 TH/MM3 CBC Comment DIFF FINAL Differential Comment Laboratory Tests Test 07/09/16 07/11/16 19:00 05:02 Ammonia 10 MCMOL/L Lipase 140 U/L Sodium Level 144 MEQ/L Potassium Level 3.1 MEQ/L Chloride Level 105 MEQ/L Carbon Dioxide Level 31.4 MEQ/L Anion Gap 8 MEQ/L Blood Urea Nitrogen 17 MG/DL Creatinine 0.73 MG/DL Estimat Glomerular Filtration 112 ML/MIN Rate Random Glucose 139 MG/DL Calcium Level 8.8 MG/DL Phosphorus Level 3.0 MG/DL Magnesium Level 1.8 MG/DL Total Bilirubin 0.2 MG/DL Aspartate Amino Transf 9 U/L (AST/SGOT) Alanine Aminotransferase 24 U/L (ALT/SGPT) Alkaline Phosphatase 95 U/L Total Creatine Kinase 16 U/L Total Protein 6.0 GM/DL Albumin 2.8 GM/DL Imaging Lower Extremity Ultrasound 07/05/16 0000 Signed Impressions: Service Date/Time: Tuesday, July 05, 2016 11:28 - CONCLUSION: Normal examination. Jese Malik MD Head CT 07/04/16 0600 Signed Impressions: Service Date/Time: Monday, July 04, 2016 04:27 - CONCLUSION: 1. Postoperative changes in the left cerebellum with multiple coils again seen. 2. The fluid collection in the postoperative bed has increased in size now measuring 7.0 x 4.2 cm. 3. The ventricles are mildly dilated when compared to previous study. 4. Right frontal ventriculostomy catheter is unchanged in position. Altaf Alfaro MD Abdomen X-Ray 07/01/16 0000 Signed Impressions: Service Date/Time: Friday, July 01, 2016 17:33 - CONCLUSION: Benign abdomen. Probable PEG tube in place Don López MD Chest X-Ray 06/22/16 0000 Signed Impressions: Service Date/Time: Wednesday, June 22, 2016 12:54 - CONCLUSION: No acute cardiopulmonary disease identified. Tommy Ramirez MD ADDENDUM: There is a right arm PICC appropriately positioned, tip at the atriocaval junction. Brian Hu MD Head CT 06/10/16 0600 Signed Impressions: Service Date/Time: Friday, June 10, 2016 05:01 - CONCLUSION: 1. 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 Locules of air within the fluid are decreasing since June 08. Right frontal ventriculostomy tube remains present with stable ventricular size. No hydrocephalus. Kirk Cortes MD Physical Exam GENERAL: Thin built, awake, up in stretcher chair. SKIN: No rashes. HEAD: Surgical site with no e/o infection. HEENT: pink conjunctiva, no petechia or hemorrhage. Nose without bleeding, or purulent drainage. Moist mucosa. NECK: Trachea midline.Supple, nontender, neck not very supple. CARDIOVASCULAR: Regular rate and rhythm. No murmur appreciated. RESPIRATORY: Clear to auscultation. Breath sounds equal bilaterally. No wheezes , rales, or rhonchi. GASTROINTESTINAL: Abdomen soft, non-tender, nondistended. MUSCULOSKELETAL: Extremities without clubbing, cyanosis, or edema. NEUROLOGICAL: Awake, responding IV line sites with no e/o infection. Assessment & Plan Remarks Hermila albicans ventriculitis. - CSF counts better E.faecalis bacteremia: No central lines or PIVs. Treated. Repeat BCX negative. SIRS/Sepsis now controlled since Vanco IV started. AVM was transferred to [facility] for further treatment of the AVM by embolization followed by suboccipital craniotomy for hematoma evacuation and AVM resection. CSF leak and hydrocephalus s/p Rt sima hole and Ventriculostomy catheter placement 06/03/2016. s/p PICC placement. Recs: Continue Diflucan 800 mg IV every 24 hours. Monitor clinically Being eval for HELP DESK ANALYST shunt D/W Matilde Katz MD Jul 11, 2016 15:02
--- NOTE | 2016-07-11 23:47 | HHI.NSPN ---
History Chief Complaint: No headache. Ventriculitis. Interval History 55-year-old male with Hermila ventriculitis. Status post suboccipital craniotomy for intracranial hemorrhage. AVM treated at [facility]. Subsequent CSF leak 07/07/2016: CSF sent for routine specimen Exam Results Vital Signs Date Time Temp Pulse Resp B/P Pulse Ox O2 Delivery O2 Flow Rate FiO2 07/11/16 16:00 61 07/11/16 16:00 97.9 16 120/71 100 Intake and Output 07/10/16 07/10/16 07/11/16 08:00 16:00 00:00 Intake Total 276 ml 734 ml 772 ml Output Total 325 ml 500 ml 450 ml Balance -49 ml 234 ml 322 ml Physical Examination Awake and alert. Speech relatively clear. Mild confusion. No city is in the hospital. Follow simple commands well. Posterior fossa wound is dry, no erythema or drainage. CN: pupils 3 mm equal, EOMs intact, no nystagmus. facial motor movement symmetric Motor: moves all four extremities symmetrically to command. Strength appears normal all extremities. Sensory: reports intact to light touch x 4 DTRs 2+ b/l Lungs: clear b/l Lab, Micro, Other Results Laboratory Tests Test 07/11/16 07/11/16 05:02 18:38 White Blood Count 8.3 TH/MM3 Red Blood Count 3.53 MIL/MM3 Hemoglobin 10.7 GM/DL Hematocrit 31.2 % Mean Corpuscular Volume 88.4 FL Mean Corpuscular Hemoglobin 30.4 PG Mean Corpuscular Hemoglobin 34.4 % Concent Red Cell Distribution Width 13.8 % Platelet Count 193 TH/MM3 Mean Platelet Volume 8.5 FL Neutrophils (%) (Auto) 77.0 % Lymphocytes (%) (Auto) 13.8 % Monocytes (%) (Auto) 7.2 % Eosinophils (%) (Auto) 1.6 % Basophils (%) (Auto) 0.4 % Neutrophils # (Auto) 6.4 TH/MM3 Lymphocytes # (Auto) 1.1 TH/MM3 Monocytes # (Auto) 0.6 TH/MM3 Eosinophils # (Auto) 0.1 TH/MM3 Basophils # (Auto) 0.0 TH/MM3 CBC Comment DIFF FINAL Differential Comment Sodium Level 144 MEQ/L Potassium Level 3.1 MEQ/L 3.9 MEQ/L Chloride Level 105 MEQ/L Carbon Dioxide Level 31.4 MEQ/L Anion Gap 8 MEQ/L Blood Urea Nitrogen 17 MG/DL Creatinine 0.73 MG/DL Estimat Glomerular Filtration 112 ML/MIN Rate Random Glucose 139 MG/DL Calcium Level 8.8 MG/DL Phosphorus Level 3.0 MG/DL Magnesium Level 1.8 MG/DL Total Bilirubin 0.2 MG/DL Aspartate Amino Transf 9 U/L (AST/SGOT) Alanine Aminotransferase 24 U/L (ALT/SGPT) Alkaline Phosphatase 95 U/L Total Creatine Kinase 16 U/L Total Protein 6.0 GM/DL Albumin 2.8 GM/DL Medical Decision Making Impression and Plan Impression: 1. Hermila ventriculitis following wound CSF leak from suboccipital craniotomy for treatment AVM Plan: Continue observation neurologic function. Plan follow CT scan in the coming week. May need ventriculoperitoneal shunt placement depending on clinical course and CT findings. Iker Escobedo MD Jul 11, 2016 23:47 Iker Escobedo MD Jul 11, 2016 23:47
[2016-07-12] VITALS (10 sets, daily range): BP systolic 142–156; BP diastolic 79–90; PULSE 56–71; RESP 9–19; TEMP 98.2–98.8; O2SAT 100
[2016-07-12] MEDS: METOCLOPRAMIDE HCL 10 MG/2 ML VIAL IV PUSH SCH ×3 (01:24→17:52)
[2016-07-12] MEDS: CHLORHEXIDINE GLUCONATE 2 % 1 PACK (2 CLOTHS) TOP SCH (01:25)
[2016-07-12] MEDS: FREE WATER PEG SCH ×4 (06:00→17:53)
[2016-07-12] MEDS: POLYETHYLENE GLYCOL 17 GM PKG PO SCH ×2 (08:00→20:00)
[2016-07-12] MEDS: SODIUM CHLORIDE 0.9% FLUSH 5 ML FLUSH IV FLUSH SCH ×2 (09:00→21:59)
[2016-07-12] MEDS: METOPROLOL TARTRATE 25 MG TAB PO SCH ×2 (09:00→21:59)
[2016-07-12] MEDS: QUEtiapine FUMARATE 25 MG TAB PO SCH ×2 (09:00→21:59)
[2016-07-12] MEDS: HEPARIN SODIUM - SQ 10,000 UNITS/ML VIAL SQ SCH ×2 (09:00→21:59)
[2016-07-12] MEDS: levETIRAcetam 500 MG TAB PO SCH ×2 (09:00→21:59)
[2016-07-12] MEDS: FAMOTIDINE 20 MG TAB NG SCH ×2 (09:00→21:59)
[2016-07-12] MEDS: THIAMINE HCL 100 MG TAB PO SCH (09:00)
[2016-07-12] MEDS: FLUCONAZOLE 400 MG PREMIX BAG 400 ML IV SCH ×2 (14:00→15:22)
--- NOTE | 2016-07-12 17:00 | HHI.CCPN ---
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 The patient underwent placement of right frontal external ventricular drain for acute hydrocephalus and was transferred to [facility] for further treatment of the AVM by embolization followed by suboccipital craniotomy for hematoma evacuation and AVM resection. Postoperatively, he was slow to wake up, his EVD was Clamped and removed and his mental status was improving. Other complications include the UTI and agitation. He was started on Rocephin and Seroquel. The patient is being transferred back to [facility] due to confusion and CSF leak. EVD was placed. He was found to have budding yeast, pseudohyphae in CSF and Enterococcus in blood. 06/30: Currently resting in bed in no acute distress with mittens and vest restraint. Afebrile. Tolerating diet. No bowel movement past 24 hours. 07/01: Resting in bed in no acute distress. Very verbal this morning. Afebrile. No bowel movement this morning. 07/02: Afebrile. 2 episodes of emesis yesterday since resolved. Denies abdominal pain. Tolerating tube feeding. One bowel movement. 07/03: Afebrile. One emesis overnight. KUB unremarkable liver function tests within normal limits. Denies nausea right now. Complaining of itchiness. 07/04: Resting in bed. Ventriculostomy currently at -5 cm H2O. Noted on CT shows increase of fluid collection in the left cerebellar postoperative changed somewhat 4.2 cm. lateral fourth ventricle is mildly enlarged. Will need METAL LOADER shunt once infection clear. 07/05: Afebrile. Currently resting in bed with ventriculostomy at -5 cm H2O. Negative growth to date from CSF from 06/30. Currently complains of being "cold ". 07/06/16: Afebrile. Currently resting in bed having a bowel movement. Denies chest pain, short of breath. Confusion at baseline. 07/07/16: Afebrile. Request removal of soft wrist restraints. He is more hypertensive today. Denies chest pain or shortness of breath. 07/08/16: Overnight, patient did pull out his METAL LOADER shunt. Afebrile. 4 bowel movements.. Tolerating tube feeding. Currently sitting in chair pulling at his dressings. 07/09: Somewhat lethargic this afternoon. Received bolus after tube feeds held for nausea. More awake and alert at the present time. Normalized. Plan for METAL LOADER shunt near future. All cultures /2 of CSF no growth to date. 07/10: Complained of headache overnight. CT head revealed stable mild ventriculomegaly otherwise unchanged with stable left cerebellar fluid collection. Afebrile. Continues to have intermittent nausea. Reglan has been resumed today. KUB pending. Arousable and will follow commands/verbal 07/11: Resting in chair. Tolerating tube feedings without nausea today. Remains in mid restraints. Denies headache currently. No vision change. No chest pain Subjective 07/12: Resting in bed. Tolerating diet without nausea. Remains in yung restraints. Denies headache. No chest pain. No vision changes. Objective Vital Signs Date Time Temp Pulse Resp B/P Pulse Ox O2 Delivery O2 Flow Rate FiO2 07/12/16 14:00 62 07/12/16 12:00 98.8 9 147/81 100 Intake and Output 07/11/16 07/11/16 07/12/16 08:00 16:00 00:00 Intake Total 580 ml 871 ml 1015 ml Output Total 450 ml 450 ml 450 ml Balance 130 ml 421 ml 565 ml Result Diagram: 07/11/16 0502 07/11/16 1838 Imaging Last Impressions Abdomen X-Ray 07/10/16 0937 Signed Impressions: Service Date/Time: July 09:57 - CONCLUSION: Stable nonspecific benign abdomen appearance Brian Vasquez MD Head CT 07/10/16 0600 Signed Impressions: Service Date/Time: July 04:09 - CONCLUSION: Interval removal of the ventriculostomy with stable size of the ventricles. Postoperative changes involving the posterior cranial fossa also stable. Francisco Nino Jr., MD Lower Extremity Ultrasound 07/05/16 0000 Signed Impressions: Service Date/Time: Tuesday, July 05, 2016 11:28 - CONCLUSION: Normal examination. Jese Malik MD Chest X-Ray 06/22/16 0000 Signed Impressions: Service Date/Time: Wednesday, June 22, 2016 12:54 - CONCLUSION: No acute cardiopulmonary disease identified. Tommy Ramirez MD ADDENDUM: There is a right arm PICC appropriately positioned, tip at the atriocaval junction. Brian Hu MD Objective Remarks GENERAL: 55-year-old male, critically ill currently resting in bed in no acute distress SKIN: Warm and dry. No rash. HEAD: Dry posterior wound, clean, healing well. Right METAL LOADER shunt pulled out with [address] NECK: Supple. No thyromegaly lymphadenopathy or carotid bruits. CARDIOVASCULAR: RRR. S1, S2. Without murmurs or clicks, gallops or rubs. RESPIRATORY: Few mobile secretions, clear with cough. Air entry equal bilaterally GASTROINTESTINAL: Abdomen soft, non-tender, nondistended. Normoactive BS MUSCULOSKELETAL: Warm, well perfused. Neuro: Oriented to person. Pupils are equal bilaterally reactive. Moves all 4 extremities spontaneously. Conversant. follows commands. 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 Either replacement EVD versus new METAL LOADER shunt. Per neurosurgery - awaiting ID clearance Continue Seroquel 25 mg twice a day Head CT 07/04 revealed increasing left cerebellar hygroma 7x4 centimeters. Will need METAL LOADER shunt once cleared by ID. CT at 07/10 revealed stable left VM and stable left cerebellar hygroma CVS Hypertension - Metoprolol 25 mg every 12 hours to be continued - continue Telemetry RESP: Currently on room air. GI: Acute protein calorie malnutritionmild - Continue Jevity 1.5 goal 50 cc an hour - mechanical soft diet - advance to regular as tolerated Colace Senokot for bowel regimen has been held due to multiple bowel movements Pepcid for GI prophylaxis Start Reglan 5 mg IV every 8 hours for prokinetic agent KUB 07/01 revealed nonspecific bowel gas pattern. Recheck 07/10 reveals nonspecific bowel gas pattern : Condom catheter in place. HEME: Normocytic anemia - Does not meet transfusion triggers at this time. - Daily CBC ID: Hermila Ventriculitis - intraventricular Amphotericin B administration. Last dose 06/30 - systemic D/Gera - right ventriculostomy 06/03, replaced 06/12 - Continue systemic Diflucan 800 mg IV daily - management per ID - no growth on a sample 06/23 - repeat CSF on Thursday06/30/2016 and 07/07/2016 no growth Enterococcus Bacteremia - Completed course of Vanc IV 06/24 Pertinent cultures Blood cultures 2 - 06/09 - Micrococcus/Enterococcus Faecium/coag negative staph CSF 06/10 and 06/12 - Hermila CSF - 06/30 - Gram stain/fungal cultures no growth CSF - 07/07 - abstain/fungal/AFB no growth CSF glucose 62/ Renal: Monitor urine output. Creatinine within normal limits FEN Hypokalemia - continue free water to 50cc every 6 - ICU electrolyte protocol Prophylaxis: GI Prophylaxis Pepcid 20 mg twice a day: DVT Prophylaxis - SCDs - Heparin subQ Level 2 Problem Qualifiers (1) UTI (urinary tract infection): (2) Cerebellar hemorrhage: Qualified Code: I61.4 - Nontraumatic intracerebral hemorrhage of cerebellum, unspecified laterality Darrick Dasilva MD Jul 12, 2016 17:00
--- NOTE | 2016-07-12 20:38 | HHI.NSPN ---
History Chief Complaint: No headache. Ventriculitis. Interval History 55-year-old male with Hermila ventriculitis. Status post suboccipital craniotomy for intracranial hemorrhage. AVM treated at [facility]. Subsequent CSF leak 07/07/2016: CSF sent for routine specimen Exam Results Vital Signs Date Time Temp Pulse Resp B/P Pulse Ox O2 Delivery O2 Flow Rate FiO2 07/12/16 18:00 67 07/12/16 16:00 98.7 15 155/90 100 Intake and Output 07/11/16 07/11/16 07/12/16 08:00 16:00 00:00 Intake Total 580 ml 871 ml 1015 ml Output Total 450 ml 450 ml 450 ml Balance 130 ml 421 ml 565 ml Physical Examination Awake and alert. Speech relatively clear. Mild confusion. Follow simple commands well. Posterior fossa wound is dry, no erythema or drainage. CN: pupils 3 mm equal, EOMs intact, no nystagmus. facial motor movement symmetric Motor: moves all four extremities symmetrically to command. Strength appears normal all extremities. Sensory: reports intact to light touch x 4 Lungs: Clear, nonlabored Lab, Micro, Other Results Abdomen X-Ray 07/10/16 0937 Signed Impressions: Service Date/Time: July 09:57 - CONCLUSION: Stable nonspecific benign abdomen appearance Brian Vasquez MD Head CT 07/10/16 0600 Signed Impressions: Service Date/Time: July 04:09 - CONCLUSION: Interval removal of the ventriculostomy with stable size of the ventricles. Postoperative changes involving the posterior cranial fossa also stable. Francisco Nino Jr., MD Medical Decision Making Impression and Plan Impression: 1. Hermila ventriculitis following wound CSF leak from suboccipital craniotomy for treatment AVM Plan: Continue observation neurologic function. 07/10/16 CT scan head was stable ventricular size following removal of external ventricular drain. May need ventriculoperitoneal shunt placement depending on clinical course and follow-up CT findings. Iker Escobedo MD Jul 12, 2016 20:38
[2016-07-12] MEDS: ACETAMIN 325 MG/BUTALBITAL 50 MG/CAFFEINE 40 MG TAB PO PRN (22:49)
[2016-07-13] VITALS (13 sets, daily range): BP systolic 138–162; BP diastolic 74–85; PULSE 54–70; RESP 9–20; TEMP 97.6–98.3; O2SAT 100
[2016-07-13] MEDS: METOCLOPRAMIDE HCL 10 MG/2 ML VIAL IV PUSH SCH ×3 (02:00→18:00)
[2016-07-13] MEDS: CHLORHEXIDINE GLUCONATE 2 % 1 PACK (2 CLOTHS) TOP SCH (04:00)
[2016-07-13 05:42] LABS: BASOPHIL % 0.7 % (0.0-2.0); EOSINOPHIL # 0.2 TH/MM3 (0-0.4); EOSINOPHIL % 3.9 % (0.0-4.0); HEMATOCRIT 31.6 % (39.0-51.0); HEMO FLAGS DIFF FINAL; LYMPH % 23.5 % (9.0-44.0); LYMPHOCYTE # 1.1 TH/MM3 (1.0-4.8); MEAN CELL VOLUME 88.4 FL (80.0-100.0); MEAN CORPUSCULAR HEMOGLOBIN 29.8 PG (27.0-34.0); MEAN CORPUSCULAR HGB CONC 33.7 % (32.0-36.0); MONO % 9.5 % (0.0-8.0); NEUT % 62.4 % (16.0-70.0); PLATELET COUNT 183 TH/MM3 (150-450); RED BLOOD COUNT 3.58 MIL/MM3 (4.50-5.90); WHITE BLOOD COUNT 4.8 TH/MM3 (4.0-11.0)
[2016-07-13] MEDS: FREE WATER PEG SCH ×4 (05:46→18:00)
[2016-07-13 06:13] LABS: ANION GAP 7 MEQ/L (5-15); AST (GOT) 12 U/L (15-37); BICARBONATE 31.6 MEQ/L (21.0-32.0); BLOOD UREA NITROGEN 14 MG/DL (7-18); CHLORIDE 101 MEQ/L (98-107); GLOMERULAR FILTRATION RATE 138 ML/MIN (>89); POTASSIUM 3.8 MEQ/L (3.5-5.1); SODIUM (NA) 140 MEQ/L (136-145)
[2016-07-13 06:20] LABS: ALKALINE PHOSPHATASE 91 U/L (45-117); ALT (GPT) 26 U/L (12-78); TOTAL BILIRUBIN ADULT 0.1 MG/DL (0.2-1.0)
[2016-07-13] MEDS: POLYETHYLENE GLYCOL 17 GM PKG PO SCH ×2 (08:00→20:00)
[2016-07-13] MEDS: levETIRAcetam 500 MG TAB PO SCH ×2 (08:14→21:50)
[2016-07-13] MEDS: THIAMINE HCL 100 MG TAB PO SCH (08:14)
[2016-07-13] MEDS: METOPROLOL TARTRATE 25 MG TAB PO SCH ×2 (08:14→21:50)
[2016-07-13] MEDS: SODIUM CHLORIDE 0.9% FLUSH 5 ML FLUSH IV FLUSH SCH ×2 (08:14→21:51)
[2016-07-13] MEDS: FAMOTIDINE 20 MG TAB NG SCH ×2 (08:14→21:50)
[2016-07-13] MEDS: QUEtiapine FUMARATE 25 MG TAB PO SCH ×2 (08:14→21:50)
[2016-07-13] MEDS: HEPARIN SODIUM - SQ 10,000 UNITS/ML VIAL SQ SCH ×2 (08:15→21:55)
[2016-07-13] MEDS: FLUCONAZOLE 400 MG PREMIX BAG 400 ML IV SCH ×2 (14:14→16:00)
[2016-07-13] MEDS: MORPHINE SULFATE 4 MG/ML INJ IV PUSH PRN (14:15)
--- NOTE | 2016-07-13 17:51 | HHI.NSPN ---
History Chief Complaint: No headache. Ventriculitis. Interval History 55-year-old male with Hermila ventriculitis. Status post suboccipital craniotomy for intracranial hemorrhage. AVM treated at [facility]. Subsequent CSF leak 07/07/2016: CSF sent for routine specimen Exam Results Vital Signs Date Time Temp Pulse Resp B/P Pulse Ox O2 Delivery O2 Flow Rate FiO2 07/13/16 16:00 98.2 64 9 145/76 100 Intake and Output 07/12/16 07/12/16 07/13/16 08:00 16:00 00:00 Intake Total 610 ml 770 ml 1106 ml Output Total 450 ml 500 ml 900 ml Balance 160 ml 270 ml 206 ml Physical Examination Awake and alert. Speech relatively clear. Mild confusion. Follow simple commands well. Posterior fossa wound is dry, no erythema or drainage. CN: pupils 3 mm equal, EOMs intact, no nystagmus. facial motor movement symmetric Motor: moves all four extremities symmetrically to command. Strength appears normal all extremities. Sensory: reports intact to light touch x 4 Lungs: Clear, nonlabored Medical Decision Making Impression and Plan Impression: 1. Hermila ventriculitis following wound CSF leak from suboccipital craniotomy for treatment AVM Plan: Continue observation neurologic function. 07/10/16 CT scan head was stable ventricular size following removal of external ventricular drain. May need ventriculoperitoneal shunt placement depending on clinical course and follow-up CT findings. Iker Escobedo MD Jul 13, 2016 17:51
--- NOTE | 2016-07-13 18:39 | HHI.CCPN ---
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 The patient underwent placement of right frontal external ventricular drain for acute hydrocephalus and was transferred to [facility] for further treatment of the AVM by embolization followed by suboccipital craniotomy for hematoma evacuation and AVM resection. Postoperatively, he was slow to wake up, his EVD was Clamped and removed and his mental status was improving. Other complications include the UTI and agitation. He was started on Rocephin and Seroquel. The patient is being transferred back to [facility] due to confusion and CSF leak. EVD was placed. He was found to have budding yeast, pseudohyphae in CSF and Enterococcus in blood. 06/30: Currently resting in bed in no acute distress with mittens and vest restraint. Afebrile. Tolerating diet. No bowel movement past 24 hours. 07/01: Resting in bed in no acute distress. Very verbal this morning. Afebrile. No bowel movement this morning. 07/02: Afebrile. 2 episodes of emesis yesterday since resolved. Denies abdominal pain. Tolerating tube feeding. One bowel movement. 07/03: Afebrile. One emesis overnight. KUB unremarkable liver function tests within normal limits. Denies nausea right now. Complaining of itchiness. 07/04: Resting in bed. Ventriculostomy currently at -5 cm [address]2O. Noted on CT shows increase of fluid collection in the left cerebellar postoperative changed somewhat 4.2 cm. lateral fourth ventricle is mildly enlarged. Will need MAIN[employer] shunt once infection clear. 07/05: Afebrile. Currently resting in bed with ventriculostomy at -5 cm H2O. Negative growth to date from CSF from 06/30. Currently complains of being "cold ". 07/06/16: Afebrile. Currently resting in bed having a bowel movement. Denies chest pain, short of breath. Confusion at baseline. 07/07/16: Afebrile. Request removal of soft wrist restraints. He is more hypertensive today. Denies chest pain or shortness of breath. 07/08/16: Overnight, patient did pull out his MA[employer]TE[employer] shunt. Afebrile. 4 bowel movements.. Tolerating tube feeding. Currently sitting in chair pulling at his dressings. 07/09: Somewhat lethargic this afternoon. Received bolus after tube feeds held for nausea. More awake and alert at the present time. Normalized. Plan for MAINTENA[employer]IAN shunt near future. All cultures 07/07 of CSF no growth to date. 07/10: Complained of headache overnight. CT head revealed stable mild ventriculomegaly otherwise unchanged with stable left cerebellar fluid collection. Afebrile. Continues to have intermittent nausea. Reglan has been resumed today. KUB pending. Arousable and will follow commands/verbal 07/11: Resting in chair. Tolerating tube feedings without nausea today. Remains in mid restraints. Denies headache currently. No vision change. No chest pain 07/12: Resting in bed. Tolerating diet without nausea. Remains in yung restraints. Denies headache. No chest pain. No vision changes. Subjective 07/13: Afebrile. Ambulated and was out of bed to chair today. Tolerating tube feeding today but very poor oral appetite. Positive BM. Asking for "a hamburger". Objective Vital Signs Date Time Temp Pulse Resp B/P Pulse Ox O2 Delivery O2 Flow Rate FiO2 07/13/16 18:00 62 07/13/16 16:00 98.2 9 145/76 100 Intake and Output 07/12/16 07/12/16 07/13/16 08:00 16:00 00:00 Intake Total 610 ml 770 ml 1106 ml Output Total 450 ml 500 ml 900 ml Balance 160 ml 270 ml 206 ml Result Diagram: 07/13/16 0445 07/13/16 0445 Imaging Last Impressions Abdomen X-Ray 07/10/16 0937 Signed Impressions: Service Date/Time: July 09:57 - CONCLUSION: Stable nonspecific benign abdomen appearance Brian Vasquez MD Head CT 07/10/16 0600 Signed Impressions: Service Date/Time: July 04:09 - CONCLUSION: Interval removal of the ventriculostomy with stable size of the ventricles. Postoperative changes involving the posterior cranial fossa also stable. Francisco Nino Jr., MD Lower Extremity Ultrasound 07/05/16 0000 Signed Impressions: Service Date/Time: Tuesday, July 05, 2016 11:28 - CONCLUSION: Normal examination. Jese Malik MD Chest X-Ray 06/22/16 0000 Signed Impressions: Service Date/Time: Wednesday, June 22, 2016 12:54 - CONCLUSION: No acute cardiopulmonary disease identified. Tommy Ramirez MD ADDENDUM: There is a right arm PICC appropriately positioned, tip at the atriocaval junction. Brian Hu MD Objective Remarks GENERAL: 55-year-old male currently resting in bed in no acute distress SKIN: Warm and dry. No rash. HEAD: Dry posterior wound, clean, healing well. Right MA[employer] shunt pulled out with [address] healing appropriately NECK: Supple. No thyromegaly lymphadenopathy or carotid bruits. CARDIOVASCULAR: RRR. S1, S2. Without murmurs or clicks, gallops or rubs. RESPIRATORY: Few mobile secretions, clear with cough. Air entry equal bilaterally GASTROINTESTINAL: Abdomen soft, non-tender, nondistended. Normoactive BS MUSCULOSKELETAL: Warm, well perfused. Neuro: Oriented to person. Pupils are equal bilaterally reactive. Moves all 4 extremities spontaneously. Conversant. follows commands. 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 Either replacement EVD versus new MAINTENA[employer]IAN shunt. Per neurosurgery - awaiting ID clearance Continue Seroquel 25 mg twice a day Head CT 07/04 revealed increasing left cerebellar hygroma 7x4 centimeters. Will need MAINTENA[employer]IAN shunt once cleared by ID. CT at 07/10 revealed stable left VM and stable left cerebellar hygroma CVS Hypertension - Metoprolol 25 mg every 12 hours to be continued - continue Telemetry RESP: Currently on room air. GI: Acute protein calorie malnutritionmild - Continue Jevity 1.5 goal 50 cc an hour - mechanical soft diet - advance to regular as tolerated Colace Senokot for bowel regimen has been held due to multiple bowel movements Pepcid for GI prophylaxis Start Reglan 5 mg IV every 8 hours for prokinetic agent KUB 07/01 revealed nonspecific bowel gas pattern. Recheck 07/10 reveals nonspecific bowel gas pattern : Condom catheter in place. HEME: Normocytic anemia - Does not meet transfusion triggers at this time. - Daily CBC ID: Hermila Ventriculitis - intraventricular Amphotericin B administration. Last dose 06/30 - systemic D/Gera - right ventriculostomy 06/03, replaced 06/12 - Continue systemic Diflucan 800 mg IV daily - management per ID - no growth on a sample 06/23 - repeat CSF on Thursday06/30/2016 and 07/07/2016 no growth Enterococcus Bacteremia - Completed course of Vanc IV 06/24 Pertinent cultures Blood cultures 2 - 06/09 - Micrococcus/Enterococcus Faecium/coag negative staph CSF 06/10 and 06/12 - Hermila CSF - 06/30 - Gram stain/fungal cultures no growth CSF - 07/07 - abstain/fungal/AFB no growth CSF glucose [id number] Renal: Monitor urine output. Creatinine within normal limits FEN Hypokalemia - resolved currently 3.8 - continue free water to 50cc every 6 - ICU electrolyte protocol Prophylaxis: GI Prophylaxis Pepcid 20 mg twice a day: DVT Prophylaxis - SCDs - Heparin subQ Level 2 Problem Qualifiers (1) UTI (urinary tract infection): (2) Cerebellar hemorrhage: Qualified Code: I61.4 - Nontraumatic intracerebral hemorrhage of cerebellum, unspecified laterality Darrick Dasilva MD Jul 13, 2016 18:39
[2016-07-14] VITALS (14 sets, daily range): BP systolic 109–152; BP diastolic 77–86; PULSE 56–72; RESP 7–20; TEMP 97.6–98.4; O2SAT 100
[2016-07-14] MEDS: METOCLOPRAMIDE HCL 10 MG/2 ML VIAL IV PUSH SCH ×3 (02:20→17:58)
[2016-07-14] MEDS: CHLORHEXIDINE GLUCONATE 2 % 1 PACK (2 CLOTHS) TOP SCH (04:00)
[2016-07-14] MEDS: FREE WATER PEG SCH ×4 (05:24→17:58)
[2016-07-14] MEDS: POLYETHYLENE GLYCOL 17 GM PKG PO SCH ×2 (08:00→21:18)
--- NOTE | 2016-07-14 08:53 | HHI.NSPN ---
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 The patient underwent placement of right frontal external ventricular drain for acute hydrocephalus and was transferred to [facility] for further treatment of the AVM by embolization followed by suboccipital craniotomy for hematoma evacuation, and AVM resection at [facility] . Postoperatively, he was slow to wake up, his EVD was Clamped and removed at [facility] and his mental status was improving. He had UTI and agitation. He was started on Rocephin and Seroquel. The patient was being transferred back to [facility] due to confusion and CSF leak. 06/04: s/p placement of ventriculostomy drain. no further leaking noted from posterior fossa wound, there has been scab formation also. 06/05: no wound leak seen 06/06: appears more awake today, wound dry, no evidence of CSF leaking overnight 06/09: wound dry, sitting up in chair eating breakfast 06/10: follow up CT Brain reviewed 06/11: prelim CSF testing shows elevated WBCs, proteins with low glucose, 06/12: CSF showing fungal growth, intraventricular ampho b ordered 06/13: EVD draining, no significant changes to neuro checks overnight 06/16: neuro checks stable overnight, alert, pleasantly confused today 06/17: intermittently confused, working with PT, repeat CSF cx pending 06/18: intermittent complaints of headaches yesterday, currently denies HAs, moves all four extremities, reported no allergic type rx following administration of intraventric ampho 06/19: reported SCHULTZ following ampho b adminstration that resolves, no changed in mental status or neuro checks 06/20: pleasantly confused, neuro checks stable overnight. 06/23: sitting up in chair, stably confused. 06/24: repeat CSF fungal stain neg, cultures pending 06/25: about to sit up in chair for breakfast, only transferring short distance from bed to chair and he is reported to still be quite ataxic. Final fungal smear reports no fungal elements seen. 06/26: denies headaches, feels his head is clearer 06/27: room moved to across nursing station, requesting milkshake for breakfast. 06/28: stable neuro checks, denies headaches, stably confused, follows simple commands 06/29: doing well, unchanged overnight 07/02: challenging EVD, minimal output at 10 cm H20, neuro checks stable. Intraventric ampho dc'ed per ID 07/03: mental status reported to be unchanged, had vomited once yesterday 07/04: EVD clamped since yesterday, f/u CT Brain completed this am, no change in his neuro checks, remains alert, stably confused, sitting up in stretcher chair and working with PT 07/08/16: Patient pulled EVD out last night, currently alert, stable mental status. Repeat CSF cx obtained yesterday 07/09/16: denies headaches, nausea, vomiting. no mental status changes, awake, alert, intermittently confused. posterior fossa wound remains dry 07/10/16: neuro checks stable overnight, denies headaches, vomiting 07/14/16: neuro examination unchanged over the weekend, intermittently confused but continues to remain alert, denies headaches, nausea, vomiting (Anuhsa Hastings) Labs, Micro, & Vital Signs Results Date Time Temp Pulse Resp B/P Pulse Ox O2 Delivery O2 Flow Rate FiO2 07/14/16 08:29 100 21 07/14/16 06:00 57 07/14/16 04:00 56 07/14/16 04:00 98.3 56 16 150/77 100 07/14/16 02:00 57 07/14/16 00:00 56 07/14/16 00:00 97.6 56 7 147/86 100 07/13/16 22:00 70 07/13/16 21:05 100 21 07/13/16 20:00 98.2 64 14 162/85 100 07/13/16 20:00 65 07/13/16 18:00 62 07/13/16 16:00 98.2 64 9 145/76 100 07/13/16 16:00 64 07/13/16 14:20 12 07/13/16 14:00 62 07/13/16 12:00 98.3 58 20 138/77 100 07/13/16 12:00 58 07/13/16 10:00 55 07/14/16 07:00 Intake Total 1953 ml Output Total 1775 ml Balance 178 ml Constitutional Vital Signs Date Time Temp Pulse Resp B/P Pulse Ox O2 Delivery O2 Flow Rate FiO2 07/14/16 08:29 100 21 07/14/16 06:00 57 07/14/16 04:00 56 07/14/16 04:00 98.3 56 16 150/77 100 07/14/16 02:00 57 07/14/16 00:00 56 07/14/16 00:00 97.6 56 7 147/86 100 07/13/16 22:00 70 07/13/16 21:05 100 21 07/13/16 20:00 98.2 64 14 162/85 100 07/13/16 20:00 65 07/13/16 18:00 62 07/13/16 16:00 98.2 64 9 145/76 100 07/13/16 16:00 64 07/13/16 14:20 12 07/13/16 14:00 62 07/13/16 12:00 98.3 58 20 138/77 100 07/13/16 12:00 58 07/13/16 10:00 55 07/14/16 07:00 Intake Total 1953 ml Output Total 1775 ml Balance 178 ml (Anusha Hastings) Review of Systems/Exam Exam Awake and alert to name and state. Speech relatively clear. Mild confusion. Follow simple commands well. Posterior fossa wound is dry, no erythema or drainage. CN: pupils 3 mm equal, EOMs intact, no nystagmus. facial motor movement symmetric Motor: moves all four extremities symmetrically to command. Strength appears normal all extremities. Sensory: reports intact to light touch x 4 Lungs: Clear, nonlabored Abdomen: PEG tube in place, soft to palpate (Anusha Hastings) Medications Current Medications Current Medications Medications (Trade) Dose Ordered Sig/Paula Route PRN Reason Start Time Stop Time Status Last Admin Dose Admin Naloxone HCl (Narcan Inj) 0.4 mg UNSCH PRN IV SEE LABEL COMMENTS 05/29/16 15:00 Acetaminophen/ Butalbital/ Caffeine (Fioricet 325-50-40) 1 tab Q6H PRN PO PAIN GREATER THAN 5 or headach 05/29/16 15:00 07/12/16 22:49 Heparin Sodium (Porcine) (Heparin Inj) 5,000 units Q12HR SQ 05/29/16 21:00 07/13/16 21:55 Levetriacetam (Keppra) 500 mg Q12HR PO 05/29/16 21:00 07/13/16 21:50 Morphine Sulfate (Morphine Inj) 2 mg Q3H PRN IV PUSH BREAKTHROUGH PAIN 06/02/16 10:30 07/13/16 14:15 Diphenhydramine HCl (Benadryl 2% Cream) 1 applic TID PRN TOPICAL ITCHING 06/02/16 11:15 IV Flush (NS Flush) 2 ml UNSCH PRN IV FLUSH FLUSH AFTER USING IV ACCESS 06/03/16 09:45 IV Flush (NS Flush) 2 ml BID IV FLUSH 06/03/16 21:00 07/13/16 21:51 Acetaminophen (Tylenol) 650 mg Q6H PRN PO FEVER >100F 06/03/16 09:45 06/22/16 09:11 Ondansetron HCl (Zofran Inj) 4 mg Q6H PRN IV NAUSEA OR VOMITING 06/03/16 09:45 07/08/16 08:54 Docusate Sodium (Colace) 100 mg BID PO 06/03/16 21:00 Hold 07/04/16 08:16 Sennosides (Senokot) 17.2 mg BID PO 06/03/16 09:45 Hold 07/04/16 20:41 Miscellaneous Information 1 Q361D XX 06/03/16 09:45 Chlorhexidine Gluconate (Chlorhexidine 2% Cloth) 3 pack Taper DAILY@04 TOP 06/04/16 04:00 05/31/17 03:59 07/14/16 04:00 Chlorhexidine Gluconate 3 pack 3 pack UNSCH PRN TOP HYGIENIC CARE 06/03/16 09:45 Sodium Chloride (NS 1000 ml Inj) 1,000 ml @ 100 mls/hr Q10H IV 06/03/16 21:16 Hold 06/05/16 22:23 Famotidine (Pepcid) 20 mg BID NG 06/04/16 09:00 07/13/16 21:50 Quetiapine Fumarate (SEROquel) 25 mg BID PO 06/06/16 09:00 07/13/16 21:50 Loperamide HCl (Imodium Liq) 2 mg UNSCH PRN TUBE DIARRHEA 06/06/16 16:15 07/03/16 14:57 Hydrocortisone Sodium Succinate 25 mg 25 mg Q24H PRN IV PRE-MED PRIOR TO AMPHOTERCIN B 06/11/16 17:00 06/30/16 09:54 Potassium Chloride 100 ml @ 50 mls/hr Q2H PRN IV For Potassium 2.8 - 3.2 mEq/L 06/12/16 07:15 07/11/16 09:24 Potassium Chloride (KCl 20 Meq Premix Inj) 100 ml @ 50 mls/hr Q2H PRN IV For Potassium 2.8 - 3.2 mEq/L 06/12/16 07:15 06/26/16 11:32 Potassium Chloride 40 meq 40 meq UNSCH PRN PO/TUBE For Potassium 3.3 - 3.5 mEq/L 06/12/16 07:15 06/28/16 06:33 Potassium Chloride 100 ml @ 25 mls/hr UNSCH PRN IV For Potassium 3.3 - 3.5 mEq/L 06/12/16 07:15 Potassium Chloride 100 ml @ 50 mls/hr Q2H PRN IV For Potassium 3.3 - 3.5 mEq/L 06/12/16 07:15 06/26/16 09:24 Magnesium Sulfate/ Sodium Chloride (Magnesium Sulfate Inj/NS Inj) 100 ml @ 50 mls/hr UNSCH PRN IV For Magnesium 0.9 - 1.1 mg/dL 06/12/16 07:15 Magnesium Oxide 800 mg 800 mg UNSCH PRN PO For Magnesium 1.2 - 1.6 mg/dL 06/12/16 07:15 Magnesium Sulfate/ Sodium Chloride (Magnesium Sulfate Inj/NS Inj) 100 ml @ 50 mls/hr UNSCH PRN IV For Magnesium 1.2 - 1.6 mg/dL 06/12/16 07:15 Potassium Phosphate 2000 mg 2,000 mg Q4H PRN PO For Phosphorus < 2.5 mg/dL 06/12/16 07:15 Sodium Phosphate/ Sodium Chloride (Sodium Phosphate Inj/NS 250 ml Inj) 250 ml @ 42 mls/hr UNSCH PRN IV For Phosphorus < 2.5 mg/dL 06/12/16 07:15 Potassium Chloride (KCl 40 Meq/30 ml Liq) 40 meq UNSCH PRN PO/TUBE SEE LABEL COMMENTS 06/12/16 07:15 Potassium Phosphate 2000 mg 2,000 mg UNSCH PRN PO/TUBE SEE LABEL COMMENTS 06/12/16 07:15 Potassium Phosphate/Sodium Chloride (Potassium Phosphate Inj/NS 250 ml Inj) 260 ml @ 42 mls/hr UNSCH PRN IV SEE LABEL COMMENTS 06/12/16 07:15 IV Flush (NS Flush) See Protocol DAILY IVF 06/23/16 09:00 07/13/16 08:14 IV Flush (NS Flush) See Protocol UNSCH PRN IVF SEE PROTOCOL TABLE 06/22/16 12:30 IV Flush See Protocol UNSCH PRN IVF SEE PROTOCOL TABLE 06/22/16 12:30 Fluconazole/ Sodium Chloride 400 ml @ 200 mls/hr Q24H IV 06/22/16 14:00 07/13/16 14:14 Fluconazole/ Sodium Chloride (Diflucan 400 Mg Premix Bag) 400 ml @ 200 mls/hr Q24H IV 06/23/16 16:00 07/13/16 16:00 Thiamine HCl (Vitamin B1) 100 mg DAILY PO 06/28/16 09:00 07/13/16 08:14 Water (Free Water) 50 ml Q6HR PEG 06/28/16 12:00 07/14/16 05:24 Diphenhydramine HCl (Benadryl Inj) 25 mg Q6HR PRN IV pruritis 07/03/16 12:00 07/03/16 14:53 Polyethylene Glycol (Miralax) 17 gm Q12H PO 07/03/16 20:00 07/10/16 08:52 Metoprolol Tartrate (Lopressor) 25 mg Q12HR PO 07/07/16 09:00 07/13/16 21:50 Hydralazine HCl (Apresoline Inj) 10 mg Q1HR PRN IV PUSH SBP>160, DBP>90 07/07/16 09:00 Labetalol HCl (Trandate Inj) 10 mg Q1HR PRN IV PUSH SBP>160, DBP>90, HR>65 07/07/16 09:00 Metoclopramide HCl 5 mg 5 mg Q8H IV PUSH 07/10/16 18:00 07/14/16 02:20 Sodium Chloride (NS 500 ml Inj) 500 ml @ 0 mls/hr BOLUS IV 07/10/16 14:00 (Anusha Hastings) Medical Decision Making MDM Remarks 55 y/o male s/p posterior fossa craniectomy for evacuation of cerebellar bleed due to AVM with embolization at [facility] s/p ventriculostomy placement for CSF leak, resolved CSF leak, evidence of hydrocephalus and increased seroma following clamping of ventriculostomy drain ventriculitis with growth of Hermila, intraventricular Ampho B tx completed continued stable neuro examination following pulling out his ventriculostomy drain on 07/07/16 (Anusha Hastings) Plan Plan Remarks neuro exam remains unchanged cont close neuro checks in [facility] may need possible shunting, dw nursing (Anusha Hastings) Attending Statement The exam, history, and the medical decision-making described in the above note were completed with the assistance of the mid-level provider. I reviewed and agree with the findings presented. I attest that I had a [id number] encounter with the patient on the same day, and personally performed and documented my assessment and findings in the medical record. (John Flowers MD) Anusha Hastings Jul 14, 2016 08:53 John Flowers MD Jul 15, 2016 17:37
[2016-07-14] MEDS: levETIRAcetam 500 MG TAB PO SCH ×2 (09:39→21:18)
[2016-07-14] MEDS: SODIUM CHLORIDE 0.9% FLUSH 5 ML FLUSH IV FLUSH SCH ×2 (09:39→21:18)
[2016-07-14] MEDS: THIAMINE HCL 100 MG TAB PO SCH (09:39)
[2016-07-14] MEDS: HEPARIN SODIUM - SQ 10,000 UNITS/ML VIAL SQ SCH ×2 (09:40→21:18)
[2016-07-14] MEDS: METOPROLOL TARTRATE 25 MG TAB PO SCH ×2 (09:41→21:18)
[2016-07-14] MEDS: FAMOTIDINE 20 MG TAB NG SCH ×2 (09:41→21:18)
[2016-07-14] MEDS: QUEtiapine FUMARATE 25 MG TAB PO SCH ×2 (09:41→21:18)
--- NOTE | 2016-07-14 09:54 | HHI.IDPN ---
Subjective Subjective Remarks ID COVERAGE Notes reviewed D/W RN Stable Still with intermittent confusion No SCHULTZ Repeat CT 07/10 - stable ventriculomegaly Temps ok Last (+) CSF C/S from 06/12 CSF C/S 06/16, 06/23 and 06/30 and / negative is a 55 y/o CM with AVM S/P coiling. On Rx for Hermila ventriculitis Antibiotics Diflucan IV Lines Line sites with no e/o infection Past Medical History AVM s/p coil Allergies: Coded Allergies: Oxycodone (Unverified Allergy, Intermediate, ITCHY, 01/16/16) Objective . Vital Signs Date Time Temp Pulse Resp B/P Pulse Ox O2 Delivery O2 Flow Rate FiO2 07/14/16 08:29 100 21 07/14/16 06:00 57 07/14/16 04:00 56 07/14/16 04:00 98.3 56 16 150/77 100 07/14/16 02:00 57 07/14/16 00:00 56 07/14/16 00:00 97.6 56 7 147/86 100 07/13/16 22:00 70 07/13/16 21:05 100 21 07/13/16 20:00 98.2 64 14 162/85 100 07/13/16 20:00 65 07/13/16 18:00 62 07/13/16 16:00 98.2 64 9 145/76 100 07/13/16 16:00 64 07/13/16 14:20 12 07/13/16 14:00 62 07/13/16 12:00 98.3 58 20 138/77 100 07/13/16 12:00 58 07/13/16 10:00 55 07/13/16 07/13/16 07/14/16 15:00 23:00 07:00 Intake Total 666 ml 689 ml 598 ml Output Total 675 ml 500 ml 600 ml Balance -9 ml 189 ml -2 ml Intake Oral 50 ml 60 ml IV Total 150 ml 148 ml Tube Feeding 366 ml 509 ml 350 ml Other 100 ml 120 ml 100 ml Output Urine Total 675 ml 500 ml 600 ml # Bowel Movements 0 0 0 . Laboratory Tests Test 07/13/16 04:45 White Blood Count 4.8 TH/MM3 Red Blood Count 3.58 MIL/MM3 Hemoglobin 10.7 GM/DL Hematocrit 31.6 % Mean Corpuscular Volume 88.4 FL Mean Corpuscular Hemoglobin 29.8 PG Mean Corpuscular Hemoglobin 33.7 % Concent Red Cell Distribution Width 14.0 % Platelet Count 183 TH/MM3 Mean Platelet Volume 8.4 FL Neutrophils (%) (Auto) 62.4 % Lymphocytes (%) (Auto) 23.5 % Monocytes (%) (Auto) 9.5 % Eosinophils (%) (Auto) 3.9 % Basophils (%) (Auto) 0.7 % Neutrophils # (Auto) 3.0 TH/MM3 Lymphocytes # (Auto) 1.1 TH/MM3 Monocytes # (Auto) 0.5 TH/MM3 Eosinophils # (Auto) 0.2 TH/MM3 Basophils # (Auto) 0.0 TH/MM3 CBC Comment DIFF FINAL Differential Comment Laboratory Tests Test 07/13/16 04:45 Sodium Level 140 MEQ/L Potassium Level 3.8 MEQ/L Chloride Level 101 MEQ/L Carbon Dioxide Level 31.6 MEQ/L Anion Gap 7 MEQ/L Blood Urea Nitrogen 14 MG/DL Creatinine 0.61 MG/DL Estimat Glomerular Filtration 138 ML/MIN Rate Random Glucose 104 MG/DL Calcium Level 8.7 MG/DL Phosphorus Level 4.2 MG/DL Magnesium Level 2.0 MG/DL Total Bilirubin 0.1 MG/DL Aspartate Amino Transf 12 U/L (AST/SGOT) Alanine Aminotransferase 26 U/L (ALT/SGPT) Alkaline Phosphatase 91 U/L Total Protein 6.1 GM/DL Albumin 2.9 GM/DL Imaging Lower Extremity Ultrasound 07/05/16 0000 Signed Impressions: Service Date/Time: Tuesday, July 05, 2016 11:28 - CONCLUSION: Normal examination. Jese Malik MD Head CT 07/04/16 0600 Signed Impressions: Service Date/Time: Monday, July 04, 2016 04:27 - CONCLUSION: 1. Postoperative changes in the left cerebellum with multiple coils again seen. 2. The fluid collection in the postoperative bed has increased in size now measuring 7.0 x 4.2 cm. 3. The ventricles are mildly dilated when compared to previous study. 4. Right frontal ventriculostomy catheter is unchanged in position. Altaf Alfaro MD Abdomen X-Ray 07/01/16 0000 Signed Impressions: Service Date/Time: Friday, July 01, 2016 17:33 - CONCLUSION: Benign abdomen. Probable PEG tube in place Don López MD Chest X-Ray 06/22/16 0000 Signed Impressions: Service Date/Time: Wednesday, June 22, 2016 12:54 - CONCLUSION: No acute cardiopulmonary disease identified. Tommy Ramirez MD ADDENDUM: There is a right arm PICC appropriately positioned, tip at the atriocaval junction. Brian Hu MD Head CT 06/10/16 0600 Signed Impressions: Service Date/Time: Friday, June 10, 2016 05:01 - CONCLUSION: 1. 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 Locules of air within the fluid are decreasing since June 08. Right frontal ventriculostomy tube remains present with stable ventricular size. No hydrocephalus. Kirk Cortes MD Physical Exam GENERAL: Thin built, awake, up in stretcher chair. SKIN: No rashes. HEAD: Surgical site with no e/o infection. HEENT: pink conjunctiva, no petechia or hemorrhage. No icterus. Moist mucosa. NECK: Trachea midline.Supple, nontender, neck not very supple. CARDIOVASCULAR: Regular rate and rhythm. No murmur appreciated. RESPIRATORY: Clear to auscultation. Breath sounds equal bilaterally. No wheezes , rales, or rhonchi. GASTROINTESTINAL: Abdomen soft, non-tender, nondistended. MUSCULOSKELETAL: Extremities without clubbing, cyanosis, or edema. NEUROLOGICAL: Awake, responding IV line sites with no e/o infection. Assessment & Plan Remarks Hermila albicans ventriculitis. - CSF counts better E.faecalis bacteremia: No central lines or PIVs. Treated. Repeat BCX negative. SIRS/Sepsis now controlled since Vanco IV started. AVM was transferred to [facility] for further treatment of the AVM by embolization followed by suboccipital craniotomy for hematoma evacuation and AVM resection. CSF leak and hydrocephalus s/p Rt sima hole and Ventriculostomy catheter placement 06/03/2016. Recs: Continue Diflucan 800 mg IV every 24 hours. Monitor progress Being eval for CHIEF MATE shunt D/W Matilde Katz MD Jul 14, 2016 09:54
[2016-07-14] MEDS: FLUCONAZOLE 400 MG PREMIX BAG 400 ML IV SCH ×2 (14:23→16:00)
--- NOTE | 2016-07-14 16:29 | HHI.CCPN ---
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 The patient underwent placement of right frontal external ventricular drain for acute hydrocephalus and was transferred to [facility] for further treatment of the AVM by embolization followed by suboccipital craniotomy for hematoma evacuation and AVM resection. Postoperatively, he was slow to wake up, his EVD was Clamped and removed and his mental status was improving. Other complications include the UTI and agitation. He was started on Rocephin and Seroquel. The patient is being transferred back to [facility] due to confusion and CSF leak. EVD was placed. He was found to have budding yeast, pseudohyphae in CSF and Enterococcus in blood. 06/30: Currently resting in bed in no acute distress with mittens and vest restraint. Afebrile. Tolerating diet. No bowel movement past 24 hours. 07/01: Resting in bed in no acute distress. Very verbal this morning. Afebrile. No bowel movement this morning. 07/02: Afebrile. 2 episodes of emesis yesterday since resolved. Denies abdominal pain. Tolerating tube feeding. One bowel movement. 07/03: Afebrile. One emesis overnight. KUB unremarkable liver function tests within normal limits. Denies nausea right now. Complaining of itchiness. 07/04: Resting in bed. Ventriculostomy currently at -5 cm H2O. Noted on CT shows increase of fluid collection in the left cerebellar postoperative changed somewhat 4.2 cm. lateral fourth ventricle is mildly enlarged. Will need ANNUAL GIVING OFFICER shunt once infection clear. 07/05: Afebrile. Currently resting in bed with ventriculostomy at -5 cm H2O. Negative growth to date from CSF from 06/30. Currently complains of being "cold ". 07/06/16: Afebrile. Currently resting in bed having a bowel movement. Denies chest pain, short of breath. Confusion at baseline. 07/07/16: Afebrile. Request removal of soft wrist restraints. He is more hypertensive today. Denies chest pain or shortness of breath. 07/08/16: Overnight, patient did pull out his ANNUAL GIVING OFFICER shunt. Afebrile. 4 bowel movements.. Tolerating tube feeding. Currently sitting in chair pulling at his dressings. 07/09: Somewhat lethargic this afternoon. Received bolus after tube feeds held for nausea. More awake and alert at the present time. Normalized. Plan for ANNUAL GIVING OFFICER shunt near future. All cultures 07/07 of CSF no growth to date. 07/10: Complained of headache overnight. CT head revealed stable mild ventriculomegaly otherwise unchanged with stable left cerebellar fluid collection. Afebrile. Continues to have intermittent nausea. Reglan has been resumed today. KUB pending. Arousable and will follow commands/verbal 07/11: Resting in chair. Tolerating tube feedings without nausea today. Remains in mid restraints. Denies headache currently. No vision change. No chest pain 07/12: Resting in bed. Tolerating diet without nausea. Remains in yung restraints. Denies headache. No chest pain. No vision changes. 07/13: Afebrile. Ambulated and was out of bed to chair today. Tolerating tube feeding today but very poor oral appetite. Positive BM. Asking for "a hamburger". Subjective 07/14: Resting comfortably in bed. Ambulated today. Very poor appetite. No bowel movement. Objective Vital Signs Date Time Temp Pulse Resp B/P Pulse Ox O2 Delivery O2 Flow Rate FiO2 07/14/16 12:00 56 07/14/16 12:00 98.2 16 109/78 100 07/14/16 08:29 21 Intake and Output 07/13/16 07/13/16 07/14/16 08:00 16:00 00:00 Intake Total 669 ml 666 ml 689 ml Output Total 550 ml 675 ml 500 ml Balance 119 ml -9 ml 189 ml Result Diagram: 07/13/16 0445 07/13/16 0445 Imaging Last Impressions Abdomen X-Ray 07/10/16 0937 Signed Impressions: Service Date/Time: July 09:57 - CONCLUSION: Stable nonspecific benign abdomen appearance Brian Vasquez MD Head CT 07/10/16 0600 Signed Impressions: Service Date/Time: July 04:09 - CONCLUSION: Interval removal of the ventriculostomy with stable size of the ventricles. Postoperative changes involving the posterior cranial fossa also stable. Francisco Nino Jr., MD Lower Extremity Ultrasound 07/05/16 0000 Signed Impressions: Service Date/Time: Tuesday, July 05, 2016 11:28 - CONCLUSION: Normal examination. Jese Malik MD Chest X-Ray 06/22/16 0000 Signed Impressions: Service Date/Time: Wednesday, June 22, 2016 12:54 - CONCLUSION: No acute cardiopulmonary disease identified. Tommy Ramirez MD ADDENDUM: There is a right arm PICC appropriately positioned, tip at the atriocaval junction. Brian Hu MD Objective Remarks GENERAL: 55-year-old male currently resting in bed in no acute distress SKIN: Warm and dry. No rash. HEAD: Dry posterior wound, clean, healing well. Right ANNUAL GIVING OFFICER shunt pulled out with [address] healing appropriately NECK: Supple. No thyromegaly lymphadenopathy or carotid bruits. CARDIOVASCULAR: Bradycardic,rr. S1, S2. Without murmurs or clicks, gallops or rubs. RESPIRATORY: Few mobile secretions, clear with cough. Air entry equal bilaterally GASTROINTESTINAL: Abdomen soft, non-tender, nondistended. Normoactive BS MUSCULOSKELETAL: Warm, well perfused. Neuro: Oriented to person. Pupils are equal bilaterally reactive. Moves all 4 extremities spontaneously. Conversant. follows commands. 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 Either replacement EVD versus new ANNUAL GIVING OFFICER shunt. Per neurosurgery - awaiting ID clearance Continue Seroquel 25 mg twice a day Head CT 12/30 revealed increasing left cerebellar hygroma 7x4 centimeters. Will need ANNUAL GIVING OFFICER shunt once cleared by ID. CT at 07/10 revealed stable left VM and stable left cerebellar hygroma CVS Hypertension - Metoprolol 25 mg every 12 hours to be continued - continue Telemetry RESP: Currently on room air. GI: Acute protein calorie malnutritionmild - Continue Jevity 1.5 goal 50 cc an hour - mechanical soft diet - advance to regular as tolerated Colace Senokot for bowel regimen has been held due to multiple bowel movements Pepcid for GI prophylaxis Continue Reglan 5 mg IV every 8 hours for prokinetic agent KUB 07/01 revealed nonspecific bowel gas pattern. Recheck 07/10 reveals nonspecific bowel gas pattern : Condom catheter in place. HEME: Normocytic anemia - Does not meet transfusion triggers at this time. - Daily CBC ID: Hermila Ventriculitis - intraventricular Amphotericin B administration. Last dose 06/30 - systemic D/Gera - right ventriculostomy 06/03, replaced 06/12 - Continue systemic Diflucan 800 mg IV daily - management per ID - no growth on a sample 06/23 - repeat CSF on Thursday06/30/2016 and 07/07/2016 no growth Enterococcus Bacteremia - Completed course of Vanc IV 06/24 Pertinent cultures Blood cultures 2 - 06/09 - Micrococcus/Enterococcus Faecium/coag negative staph CSF 06/10 and 06/12 - Hermila CSF - 06/30 - Gram stain/fungal cultures no growth CSF - 07/07 - abstain/fungal/AFB no growth CSF glucose [id number] Renal: Monitor urine output. Creatinine within normal limits FEN Hypokalemia - resolved currently 3.8 - continue free water to 50cc every 6 - ICU electrolyte protocol Prophylaxis: GI Prophylaxis Pepcid 20 mg twice a day: DVT Prophylaxis - SCDs - Heparin subQ Level 2 Problem Qualifiers (1) UTI (urinary tract infection): (2) Cerebellar hemorrhage: Qualified Code: I61.4 - Nontraumatic intracerebral hemorrhage of cerebellum, unspecified laterality Darrick Dasilva MD Jul 14, 2016 16:29
[2016-07-15] VITALS (11 sets, daily range): BP systolic 130–163; BP diastolic 79–97; PULSE 60–76; RESP 11–16; TEMP 97.8–98.6; O2SAT 100
[2016-07-15] MEDS: FREE WATER PEG SCH ×5 (00:28→23:20)
[2016-07-15] MEDS: CHLORHEXIDINE GLUCONATE 2 % 1 PACK (2 CLOTHS) TOP SCH (04:00)
[2016-07-15] MEDS: METOCLOPRAMIDE HCL 10 MG/2 ML VIAL IV PUSH SCH ×3 (04:13→17:32)
[2016-07-15 04:51] LABS: AUTOMATED NEUTROPHIL # 4.6 TH/MM3 (1.8-7.7); BASOPHIL % 0.7 % (0.0-2.0); EOSINOPHIL # 0.2 TH/MM3 (0-0.4); EOSINOPHIL % 2.7 % (0.0-4.0); HEMATOCRIT 33.4 % (39.0-51.0); HEMO FLAGS DIFF FINAL; LYMPH % 17.8 % (9.0-44.0); LYMPHOCYTE # 1.2 TH/MM3 (1.0-4.8); MEAN CELL VOLUME 87.8 FL (80.0-100.0); MEAN CORPUSCULAR HEMOGLOBIN 29.3 PG (27.0-34.0); MEAN CORPUSCULAR HGB CONC 33.4 % (32.0-36.0); MONO % 10.2 % (0.0-8.0); NEUT % 68.6 % (16.0-70.0); PLATELET COUNT 223 TH/MM3 (150-450); RED CELL DISTRIBUTION WIDTH 14.1 % (11.6-17.2); WHITE BLOOD COUNT 6.7 TH/MM3 (4.0-11.0)
[2016-07-15 05:13] LABS: ALKALINE PHOSPHATASE 98 U/L (45-117); ALT (GPT) 28 U/L (12-78); ANION GAP 7 MEQ/L (5-15); AST (GOT) 11 U/L (15-37); BICARBONATE 32.2 MEQ/L (21.0-32.0); BLOOD UREA NITROGEN 15 MG/DL (7-18); CHLORIDE 101 MEQ/L (98-107); GLOMERULAR FILTRATION RATE 143 ML/MIN (>89); POTASSIUM 3.9 MEQ/L (3.5-5.1); SODIUM (NA) 140 MEQ/L (136-145); TOTAL BILIRUBIN ADULT 0.2 MG/DL (0.2-1.0)
--- NOTE | 2016-07-15 06:37 | RADRPT ---
EXAM DATE/TIME: 07/15/2016 05:43 [facility] COMPARISON: CT BRAIN W/O CONTRAST, July 10, 2016, 4:09. 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 RADIATION DOSE: 32.09 CTDIvol (mGy) MEDICAL HISTORY : Carcinoma, rectal. SURGICAL HISTORY : Craniotomy. ENCOUNTER: Subsequent ACUITY: 1 month PAIN SCALE: Non-responsive LOCATION: cranial TECHNIQUE: Multiple contiguous axial images were obtained of the head. Using automated exposure control and adj ustment of the mA and/or kV according to patient size, radiation dose was kept as low as reasonably a chievable to obtain optimal diagnostic quality images. FINDINGS: Postsurgical changes in the left cerebellum and previous occipital craniectomy again seen. The fluid collection posteriorly in the soft tissues has significantly decreased in prominence measuring approx imately 5.3 x 2.0 cm. Ventricles remain slightly prominent. There is air in the ventricles. No midlin e shift. No acute hemorrhage or acute infarction. CONCLUSION: 1. Fluid collection in the posterior soft tissues has significantly decreased in prominence. 2. Post surgical changes in the left cerebellum with previous occipital craniectomy. Altaf Alfaro MD on July 15, 2016 at 6:32 Board Certified Radiologist. This report was verified electronically.
[2016-07-15] MEDS: POLYETHYLENE GLYCOL 17 GM PKG PO SCH ×2 (08:00→20:00)
[2016-07-15] MEDS: FAMOTIDINE 20 MG TAB NG SCH ×2 (08:12→21:55)
[2016-07-15] MEDS: HEPARIN SODIUM - SQ 10,000 UNITS/ML VIAL SQ SCH ×2 (08:13→21:55)
[2016-07-15] MEDS: levETIRAcetam 500 MG TAB PO SCH ×2 (08:13→21:54)
[2016-07-15] MEDS: THIAMINE HCL 100 MG TAB PO SCH (08:13)
[2016-07-15] MEDS: QUEtiapine FUMARATE 25 MG TAB PO SCH ×2 (08:13→21:55)
[2016-07-15] MEDS: METOPROLOL TARTRATE 25 MG TAB PO SCH ×2 (08:13→21:55)
[2016-07-15] MEDS: SODIUM CHLORIDE 0.9% FLUSH 5 ML FLUSH IV FLUSH SCH ×2 (08:14→21:55)
--- NOTE | 2016-07-15 13:32 | HHI.NSPN ---
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 The patient underwent placement of right frontal external ventricular drain for acute hydrocephalus and was transferred to [facility] for further treatment of the AVM by embolization followed by suboccipital craniotomy for hematoma evacuation, and AVM resection at [facility] . Postoperatively, he was slow to wake up, his EVD was Clamped and removed at [facility] and his mental status was improving. He had UTI and agitation. He was started on Rocephin and Seroquel. The patient was being transferred back to [facility] due to confusion and CSF leak. 06/04: s/p placement of ventriculostomy drain. no further leaking noted from posterior fossa wound, there has been scab formation also. 06/05: no wound leak seen 06/06: appears more awake today, wound dry, no evidence of CSF leaking overnight 06/09: wound dry, sitting up in chair eating breakfast 06/10: follow up CT Brain reviewed 06/11: prelim CSF testing shows elevated WBCs, proteins with low glucose, 06/12: CSF showing fungal growth, intraventricular ampho b ordered 06/13: EVD draining, no significant changes to neuro checks overnight 06/16: neuro checks stable overnight, alert, pleasantly confused today 06/17: intermittently confused, working with PT, repeat CSF cx pending 06/18: intermittent complaints of headaches yesterday, currently denies HAs, moves all four extremities, reported no allergic type rx following administration of intraventric ampho 06/19: reported SCHULTZ following ampho b adminstration that resolves, no changed in mental status or neuro checks 06/20: pleasantly confused, neuro checks stable overnight. 06/23: sitting up in chair, stably confused. 06/24: repeat CSF fungal stain neg, cultures pending 06/25: about to sit up in chair for breakfast, only transferring short distance from bed to chair and he is reported to still be quite ataxic. Final fungal smear reports no fungal elements seen. 06/26: denies headaches, feels his head is clearer 06/27: room moved to across nursing station, requesting milkshake for breakfast. 06/28: stable neuro checks, denies headaches, stably confused, follows simple commands 06/29: doing well, unchanged overnight 07/02: challenging EVD, minimal output at 10 cm H20, neuro checks stable. Intraventric ampho dc'ed per ID 07/03: mental status reported to be unchanged, had vomited once yesterday 07/04: EVD clamped since yesterday, f/u CT Brain completed this am, no change in his neuro checks, remains alert, stably confused, sitting up in stretcher chair and working with PT 07/08/16: Patient pulled EVD out last night, currently alert, stable mental status. Repeat CSF cx obtained yesterday 07/09/16: denies headaches, nausea, vomiting. no mental status changes, awake, alert, intermittently confused. posterior fossa wound remains dry 07/10/16: neuro checks stable overnight, denies headaches, vomiting 07/14/16: neuro examination unchanged over the weekend, intermittently confused but continues to remain alert, denies headaches, nausea, vomiting 07/15/16: no changes neurologically, f/u CT Brain completed this morning (Anusha Hastings) Labs, Micro, & Vital Signs Results Date Time Temp Pulse Resp B/P Pulse Ox O2 Delivery O2 Flow Rate FiO2 07/15/16 08:09 98.0 68 14 150/92 100 07/15/16 08:00 98.2 68 14 150/92 100 07/15/16 07:53 100 21 07/15/16 06:00 68 07/15/16 04:00 69 07/15/16 04:00 97.8 68 13 145/84 100 07/15/16 02:00 64 07/15/16 00:00 98.3 60 12 130/79 100 07/15/16 00:00 60 07/14/16 22:00 68 07/14/16 21:15 100 21 07/14/16 20:00 98.1 72 20 152/85 100 07/14/16 20:00 72 07/14/16 18:00 68 07/14/16 16:00 68 07/14/16 16:00 98.3 68 15 134/78 100 07/14/16 14:00 66 07/15/16 07:00 Intake Total 2579 ml Output Total 2025 ml Balance 554 ml Constitutional Vital Signs Date Time Temp Pulse Resp B/P Pulse Ox O2 Delivery O2 Flow Rate FiO2 07/15/16 08:09 98.0 68 14 150/92 100 07/15/16 08:00 98.2 68 14 150/92 100 07/15/16 07:53 100 21 07/15/16 06:00 68 07/15/16 04:00 69 07/15/16 04:00 97.8 68 13 145/84 100 07/15/16 02:00 64 07/15/16 00:00 98.3 60 12 130/79 100 07/15/16 00:00 60 07/14/16 22:00 68 07/14/16 21:15 100 21 07/14/16 20:00 98.1 72 20 152/85 100 07/14/16 20:00 72 07/14/16 18:00 68 07/14/16 16:00 68 07/14/16 16:00 98.3 68 15 134/78 100 07/14/16 14:00 66 07/15/16 07:00 Intake Total 2579 ml Output Total 2025 ml Balance 554 ml (Anusha Hastings) Review of Systems/Exam Exam Awake and alert to name and state. Speech relatively clear. Mild confusion. Follow simple commands well. Posterior fossa wound is dry, no erythema or drainage. CN: pupils 3 mm equal, EOMs intact, no nystagmus. facial motor movement symmetric Motor: moves all four extremities symmetrically to command. Strength appears normal all extremities. Sensory: reports intact to light touch x 4 Lungs: Clear, nonlabored Abdomen: PEG tube in place, soft to palpate (Anusha Hastings) Medications Current Medications Current Medications Medications (Trade) Dose Ordered Sig/Paula Route PRN Reason Start Time Stop Time Status Last Admin Dose Admin Naloxone HCl (Narcan Inj) 0.4 mg UNSCH PRN IV SEE LABEL COMMENTS 05/29/16 15:00 Acetaminophen/ Butalbital/ Caffeine (Fioricet 325-50-40) 1 tab Q6H PRN PO PAIN GREATER THAN 5 or headach 05/29/16 15:00 07/12/16 22:49 Heparin Sodium (Porcine) (Heparin Inj) 5,000 units Q12HR SQ 05/29/16 21:00 07/15/16 08:13 Levetriacetam (Keppra) 500 mg Q12HR PO 05/29/16 21:00 07/15/16 08:13 Morphine Sulfate (Morphine Inj) 2 mg Q3H PRN IV PUSH BREAKTHROUGH PAIN 06/02/16 10:30 07/13/16 14:15 Diphenhydramine HCl (Benadryl 2% Cream) 1 applic TID PRN TOPICAL ITCHING 06/02/16 11:15 IV Flush (NS Flush) 2 ml UNSCH PRN IV FLUSH FLUSH AFTER USING IV ACCESS 06/03/16 09:45 IV Flush (NS Flush) 2 ml BID IV FLUSH 06/03/16 21:00 07/15/16 08:14 Acetaminophen (Tylenol) 650 mg Q6H PRN PO FEVER >100F 06/03/16 09:45 06/22/16 09:11 Ondansetron HCl (Zofran Inj) 4 mg Q6H PRN IV NAUSEA OR VOMITING 06/03/16 09:45 07/08/16 08:54 Docusate Sodium (Colace) 100 mg BID PO 06/03/16 21:00 Hold 07/04/16 08:16 Sennosides (Senokot) 17.2 mg BID PO 06/03/16 09:45 Hold 07/04/16 20:41 Miscellaneous Information 1 Q361D XX 06/03/16 09:45 Chlorhexidine Gluconate (Chlorhexidine 2% Cloth) 3 pack Taper DAILY@04 TOP 06/04/16 04:00 05/31/17 03:59 07/14/16 04:00 Chlorhexidine Gluconate 3 pack 3 pack UNSCH PRN TOP HYGIENIC CARE 06/03/16 09:45 Sodium Chloride (NS 1000 ml Inj) 1,000 ml @ 100 mls/hr Q10H IV 06/03/16 21:16 Hold 06/05/16 22:23 Famotidine (Pepcid) 20 mg BID NG 06/04/16 09:00 07/15/16 08:12 Quetiapine Fumarate (SEROquel) 25 mg BID PO 06/06/16 09:00 07/15/16 08:13 Loperamide HCl (Imodium Liq) 2 mg UNSCH PRN TUBE DIARRHEA 06/06/16 16:15 07/03/16 14:57 Hydrocortisone Sodium Succinate 25 mg 25 mg Q24H PRN IV PRE-MED PRIOR TO AMPHOTERCIN B 06/11/16 17:00 06/30/16 09:54 Potassium Chloride 100 ml @ 50 mls/hr Q2H PRN IV For Potassium 2.8 - 3.2 mEq/L 06/12/16 07:15 07/11/16 09:24 Potassium Chloride (KCl 20 Meq Premix Inj) 100 ml @ 50 mls/hr Q2H PRN IV For Potassium 2.8 - 3.2 mEq/L 06/12/16 07:15 06/26/16 11:32 Potassium Chloride 40 meq 40 meq UNSCH PRN PO/TUBE For Potassium 3.3 - 3.5 mEq/L 06/12/16 07:15 06/28/16 06:33 Potassium Chloride 100 ml @ 25 mls/hr UNSCH PRN IV For Potassium 3.3 - 3.5 mEq/L 06/12/16 07:15 Potassium Chloride 100 ml @ 50 mls/hr Q2H PRN IV For Potassium 3.3 - 3.5 mEq/L 06/12/16 07:15 06/26/16 09:24 Magnesium Sulfate/ Sodium Chloride (Magnesium Sulfate Inj/NS Inj) 100 ml @ 50 mls/hr UNSCH PRN IV For Magnesium 0.9 - 1.1 mg/dL 06/12/16 07:15 Magnesium Oxide 800 mg 800 mg UNSCH PRN PO For Magnesium 1.2 - 1.6 mg/dL 06/12/16 07:15 Magnesium Sulfate/ Sodium Chloride (Magnesium Sulfate Inj/NS Inj) 100 ml @ 50 mls/hr UNSCH PRN IV For Magnesium 1.2 - 1.6 mg/dL 06/12/16 07:15 Potassium Phosphate 2000 mg 2,000 mg Q4H PRN PO For Phosphorus < 2.5 mg/dL 06/12/16 07:15 Sodium Phosphate/ Sodium Chloride (Sodium Phosphate Inj/NS 250 ml Inj) 250 ml @ 42 mls/hr UNSCH PRN IV For Phosphorus < 2.5 mg/dL 06/12/16 07:15 Potassium Chloride (KCl 40 Meq/30 ml Liq) 40 meq UNSCH PRN PO/TUBE SEE LABEL COMMENTS 06/12/16 07:15 Potassium Phosphate 2000 mg 2,000 mg UNSCH PRN PO/TUBE SEE LABEL COMMENTS 06/12/16 07:15 Potassium Phosphate/Sodium Chloride (Potassium Phosphate Inj/NS 250 ml Inj) 260 ml @ 42 mls/hr UNSCH PRN IV SEE LABEL COMMENTS 06/12/16 07:15 IV Flush (NS Flush) See Protocol DAILY IVF 06/23/16 09:00 07/14/16 09:42 IV Flush (NS Flush) See Protocol UNSCH PRN IVF SEE PROTOCOL TABLE 06/22/16 12:30 IV Flush See Protocol UNSCH PRN IVF SEE PROTOCOL TABLE 06/22/16 12:30 Fluconazole/ Sodium Chloride 400 ml @ 200 mls/hr Q24H IV 06/22/16 14:00 07/14/16 14:23 Fluconazole/ Sodium Chloride (Diflucan 400 Mg Premix Bag) 400 ml @ 200 mls/hr Q24H IV 06/23/16 16:00 07/14/16 16:00 Thiamine HCl (Vitamin B1) 100 mg DAILY PO 06/28/16 09:00 07/15/16 08:13 Water (Free Water) 50 ml Q6HR PEG 06/28/16 12:00 07/15/16 12:00 Diphenhydramine HCl (Benadryl Inj) 25 mg Q6HR PRN IV pruritis 07/03/16 12:00 07/03/16 14:53 Polyethylene Glycol (Miralax) 17 gm Q12H PO 07/03/16 20:00 07/14/16 21:18 Metoprolol Tartrate (Lopressor) 25 mg Q12HR PO 07/07/16 09:00 07/15/16 08:13 Hydralazine HCl (Apresoline Inj) 10 mg Q1HR PRN IV PUSH SBP>160, DBP>90 07/07/16 09:00 Labetalol HCl (Trandate Inj) 10 mg Q1HR PRN IV PUSH SBP>160, DBP>90, HR>65 07/07/16 09:00 Metoclopramide HCl 5 mg 5 mg Q8H IV PUSH 07/10/16 18:00 07/15/16 10:41 Sodium Chloride (NS 500 ml Inj) 500 ml @ 0 mls/hr BOLUS IV 07/10/16 14:00 (Anusha Hastings) Medical Decision Making MDM Remarks 55 y/o male s/p posterior fossa craniectomy for evacuation of cerebellar bleed due to AVM with embolization at [facility] s/p ventriculostomy placement for CSF leak, resolved CSF leak, evidence of hydrocephalus and increased seroma following clamping of ventriculostomy drain ventriculitis with growth of Hermila, intraventricular Ampho B tx completed continued stable neuro examination following pulling out his ventriculostomy drain on 07/07/16, f/u CT Brain 07/15/16 with improved size of meningocele, stable mild ventriculomegaly, and stable neurological examination (Anusha Hastings) Plan Plan Remarks f/u CT Brain this am reviewed dw Dr. Flowers, no need for [employer] shunt at this time rehab efforts will sign off, call prn (Anusha Hastings) Attending Statement The exam, history, and the medical decision-making described in the above note were completed with the assistance of the mid-level provider. I reviewed and agree with the findings presented. I attest that I had a [id number] encounter with the patient on the same day, and personally performed and documented my assessment and findings in the medical record. (John Flowers MD) Anusha Hastings Jul 15, 2016 13:32 John Flowers MD Jul 20, 2016 21:00
[2016-07-15] MEDS: FLUCONAZOLE 400 MG PREMIX BAG 400 ML IV SCH ×2 (14:25→17:32)
--- NOTE | 2016-07-15 16:51 | HHI.CCPN ---
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 The patient underwent placement of right frontal external ventricular drain for acute hydrocephalus and was transferred to [facility] for further treatment of the AVM by embolization followed by suboccipital craniotomy for hematoma evacuation and AVM resection. Postoperatively, he was slow to wake up, his EVD was Clamped and removed and his mental status was improving. Other complications include the UTI and agitation. He was started on Rocephin and Seroquel. The patient is being transferred back to [facility] due to confusion and CSF leak. EVD was placed. He was found to have budding yeast, pseudohyphae in CSF and Enterococcus in blood. 06/30: Currently resting in bed in no acute distress with mittens and vest restraint. Afebrile. Tolerating diet. No bowel movement past 24 hours. 07/01: Resting in bed in no acute distress. Very verbal this morning. Afebrile. No bowel movement this morning. 07/02: Afebrile. 2 episodes of emesis yesterday since resolved. Denies abdominal pain. Tolerating tube feeding. One bowel movement. 07/03: Afebrile. One emesis overnight. KUB unremarkable liver function tests within normal limits. Denies nausea right now. Complaining of itchiness. 07/04: Resting in bed. Ventriculostomy currently at -5 cm [address]2O. Noted on CT shows increase of fluid collection in the left cerebellar postoperative changed somewhat 4.2 cm. lateral fourth ventricle is mildly enlarged. Will need [employer] shunt once infection clear. 07/05: Afebrile. Currently resting in bed with ventriculostomy at -5 cm H2O. Negative growth to date from CSF from 06/30. Currently complains of being "cold ". 07/06/16: Afebrile. Currently resting in bed having a bowel movement. Denies chest pain, short of breath. Confusion at baseline. 07/07/16: Afebrile. Request removal of soft wrist restraints. He is more hypertensive today. Denies chest pain or shortness of breath. 07/08/16: Overnight, patient did pull out his [employer] shunt. Afebrile. 4 bowel movements.. Tolerating tube feeding. Currently sitting in chair pulling at his dressings. 07/09: Somewhat lethargic this afternoon. Received bolus after tube feeds held for nausea. More awake and alert at the present time. Normalized. Plan for [employer]ER shunt near future. All cultures 07/07 of CSF no growth to date. 07/10: Complained of headache overnight. CT head revealed stable mild ventriculomegaly otherwise unchanged with stable left cerebellar fluid collection. Afebrile. Continues to have intermittent nausea. Reglan has been resumed today. KUB pending. Arousable and will follow commands/verbal 07/11: Resting in chair. Tolerating tube feedings without nausea today. Remains in mid restraints. Denies headache currently. No vision change. No chest pain 07/12: Resting in bed. Tolerating diet without nausea. Remains in yung restraints. Denies headache. No chest pain. No vision changes. 07/13: Afebrile. Ambulated and was out of bed to chair today. Tolerating tube feeding today but very poor oral appetite. Positive BM. Asking for "a hamburger". Subjective 07/14: Resting comfortably in bed. Ambulated today. Very poor appetite. No bowel movement. Objective Vital Signs Date Time Temp Pulse Resp B/P Pulse Ox O2 Delivery O2 Flow Rate FiO2 07/15/16 08:00 98.2 68 14 150/92 100 07/15/16 07:53 21 Intake and Output 07/14/16 07/14/16 07/15/16 08:00 16:00 00:00 Intake Total 598 ml 739 ml 1238 ml Output Total 600 ml 550 ml 1000 ml Balance -2 ml 189 ml 238 ml Result Diagram: 07/15/16 0430 07/15/16 0430 Imaging Last Impressions Abdomen X-Ray 07/10/16 0937 Signed Impressions: Service Date/Time: July 09:57 - CONCLUSION: Stable nonspecific benign abdomen appearance Brian Vasquez MD Head CT 07/10/16 0600 Signed Impressions: Service Date/Time: July 04:09 - CONCLUSION: Interval removal of the ventriculostomy with stable size of the ventricles. Postoperative changes involving the posterior cranial fossa also stable. Francisco Nino Jr., MD Lower Extremity Ultrasound 07/05/16 0000 Signed Impressions: Service Date/Time: Tuesday, July 05, 2016 11:28 - CONCLUSION: Normal examination. Jese Malik MD Chest X-Ray 06/22/16 0000 Signed Impressions: Service Date/Time: Wednesday, June 22, 2016 12:54 - CONCLUSION: No acute cardiopulmonary disease identified. Tommy Ramirez MD ADDENDUM: There is a right arm PICC appropriately positioned, tip at the atriocaval junction. Brian Hu MD Objective Remarks GENERAL: 55-year-old male currently resting in bed in no acute distress SKIN: Warm and dry. No rash. HEAD: Dry posterior wound, clean, healing well. Right [employer] shunt pulled out with [address] healing appropriately NECK: Supple. No thyromegaly lymphadenopathy or carotid bruits. CARDIOVASCULAR: Bradycardic,rr. S1, S2. Without murmurs or clicks, gallops or rubs. RESPIRATORY: Few mobile secretions, clear with cough. Air entry equal bilaterally GASTROINTESTINAL: Abdomen soft, non-tender, nondistended. Normoactive BS MUSCULOSKELETAL: Warm, well perfused. Neuro: Oriented to person. Pupils are equal bilaterally reactive. Moves all 4 extremities spontaneously. Conversant. follows commands. 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 - no need for [employer] shunt at this time per NSGY - Continue Seroquel 25 mg twice a day - repeat CT head a.m. Hypertension - Metoprolol 25 mg every 12 hours - continue Telemetry Acute protein calorie malnutritionmild - Continue Jevity 1.5 goal 50 cc an hour - mechanical soft diet - advance to regular as tolerated - Colace Senokot for bowel regimen has been held due to multiple bowel movements - Pepcid for GI prophylaxis - Continue Reglan 5 mg IV every 8 hours for prokinetic agent Normocytic anemia - H&H stable - Does not meet transfusion triggers at this time. - Daily CBC Hermila Ventriculitis - post intraventricular Amphotericin B administration. Last dose 06/30 - systemic D/Gera - right ventriculostomy 06/03, replaced 06/12 - Continue systemic Diflucan 800 mg IV daily - management per ID - no growth on a sample 06/23 - repeat CSF on Thursday06/30/2016 and 07/07/2016 no growth Enterococcus Bacteremia - Completed course of Vanc IV 06/24 GI Prophylaxis Pepcid 20 mg twice a day: DVT Prophylaxis - SCDs - Heparin subQ Level 2 Problem Qualifiers (1) UTI (urinary tract infection): (2) Cerebellar hemorrhage: Qualified Code: I61.4 - Nontraumatic intracerebral hemorrhage of cerebellum, unspecified laterality Chidi Trimble MD Jul 15, 2016 16:51
[2016-07-15] MEDS: ACETAMIN 325 MG/BUTALBITAL 50 MG/CAFFEINE 40 MG TAB PO PRN (21:55)
[2016-07-16] VITALS (13 sets, daily range): BP systolic 127–191; BP diastolic 73–95; PULSE 54–95; RESP 12–27; TEMP 97.5–98.3; O2SAT 92–100
[2016-07-16] MEDS: METOCLOPRAMIDE HCL 10 MG/2 ML VIAL IV PUSH SCH ×3 (02:16→18:00)
[2016-07-16] MEDS: CHLORHEXIDINE GLUCONATE 2 % 1 PACK (2 CLOTHS) TOP SCH (04:00)
[2016-07-16] MEDS: FREE WATER PEG SCH ×3 (06:00→18:00)
[2016-07-16] MEDS: ACETAMIN 325 MG/BUTALBITAL 50 MG/CAFFEINE 40 MG TAB PO PRN (06:07)
[2016-07-16 06:25] LABS: AUTOMATED NEUTROPHIL # 3.3 TH/MM3 (1.8-7.7); BASOPHIL % 0.8 % (0.0-2.0); EOSINOPHIL # 0.2 TH/MM3 (0-0.4); EOSINOPHIL % 3.1 % (0.0-4.0); HEMATOCRIT 32.7 % (39.0-51.0); HEMO FLAGS DIFF FINAL; LYMPH % 22.6 % (9.0-44.0); LYMPHOCYTE # 1.2 TH/MM3 (1.0-4.8); MEAN CELL VOLUME 87.3 FL (80.0-100.0); MEAN CORPUSCULAR HEMOGLOBIN 29.5 PG (27.0-34.0); MEAN CORPUSCULAR HGB CONC 33.8 % (32.0-36.0); MONO % 10.2 % (0.0-8.0); NEUT % 63.3 % (16.0-70.0); PLATELET COUNT 216 TH/MM3 (150-450); RED BLOOD COUNT 3.75 MIL/MM3 (4.50-5.90); RED CELL DISTRIBUTION WIDTH 13.9 % (11.6-17.2); WHITE BLOOD COUNT 5.2 TH/MM3 (4.0-11.0)
[2016-07-16 06:46] LABS: ALT (GPT) 26 U/L (12-78); ANION GAP 6 MEQ/L (5-15); AST (GOT) 11 U/L (15-37); BICARBONATE 33.1 MEQ/L (21.0-32.0); BLOOD UREA NITROGEN 16 MG/DL (7-18); CHLORIDE 101 MEQ/L (98-107); GLOMERULAR FILTRATION RATE 133 ML/MIN (>89); MAGNESIUM 2.1 MG/DL (1.5-2.5); POTASSIUM 3.8 MEQ/L (3.5-5.1); SODIUM (NA) 140 MEQ/L (136-145)
[2016-07-16 06:49] LABS: ALKALINE PHOSPHATASE 91 U/L (45-117); TOTAL BILIRUBIN ADULT 0.1 MG/DL (0.2-1.0)
--- NOTE | 2016-07-16 08:29 | HHI.PR ---
Subjective Remarks in no acute distress. has mild headache. no fever. d/w the RN and no acute issues over night. Objective Vitals Vital Signs Date Time Temp Pulse Resp B/P Pulse Ox O2 Delivery O2 Flow Rate FiO2 07/16/16 06:00 71 07/16/16 04:00 97.8 64 13 140/88 99 07/16/16 04:00 64 07/16/16 02:00 60 07/16/16 00:00 98.3 54 27 127/73 99 07/16/16 00:00 54 07/15/16 22:00 76 07/15/16 20:00 75 07/15/16 20:00 98.1 75 11 163/97 100 07/15/16 16:00 98.6 73 16 151/89 100 07/15/16 12:00 66 07/15/16 12:00 98.0 66 14 146/97 100 I/O 07/15/16 07/15/16 07/15/16 07/16/16 07/16/16 07/16/16 07:00 15:00 23:00 07:00 15:00 23:00 Intake Total 602 ml 574 ml 1173 ml 822 ml Output Total 475 ml 475 ml 775 ml 600 ml Balance 127 ml 99 ml 398 ml 222 ml Intake Oral 275 ml 175 ml IV Total 123 ml 124 ml 495 ml 154 ml Tube Feeding 279 ml 400 ml 293 ml 333 ml Tube Irrigant 60 ml 60 ml Other 200 ml 50 ml 50 ml 100 ml Output Urine Total 475 ml 475 ml 775 ml 600 ml # Bowel Movements 1 2 0 Result Diagram: 07/16/16 0548 07/16/16 0548 Imaging Last Impressions Head CT 07/15/16 0600 Signed Impressions: Service Date/Time: Friday, July 15, 2016 05:43 - CONCLUSION: 1. Fluid collection in the posterior soft tissues has significantly decreased in prominence. 2. Post surgical changes in the left cerebellum with previous occipital craniectomy. Altaf Alfaro MD Abdomen X-Ray 07/10/16 0937 Signed Impressions: Service Date/Time: July 09:57 - CONCLUSION: Stable nonspecific benign abdomen appearance Brian Vasquez MD Lower Extremity Ultrasound 07/05/16 0000 Signed Impressions: Service Date/Time: Tuesday, July 05, 2016 11:28 - CONCLUSION: Normal examination. Jese Malik MD Chest X-Ray 06/22/16 0000 Signed Impressions: Service Date/Time: Wednesday, June 22, 2016 12:54 - CONCLUSION: No acute cardiopulmonary disease identified. Tommy Ramirez MD ADDENDUM: There is a right arm PICC appropriately positioned, tip at the atriocaval junction. Brian Hu MD Objective Remarks GENERAL: This is a well-nourished, well-developed patient, in no apparent distress. CARDIOVASCULAR: Regular rate and regular rhythm without murmurs, gallops, or rubs. RESPIRATORY: Clear to auscultation. Breath sounds equal bilaterally. No wheezes , rales, or rhonchi. GASTROINTESTINAL: Abdomen soft, non-tender, nondistended. Normal, active bowel sounds MUSCULOSKELETAL: Extremities without clubbing, cyanosis, or edema. NEURO: awake and alert- oriented to person and partly to place Medications and IVs Current Medications IV Flush (NS Flush) 2 ml UNSCH PRN FLUSH FLUSH AFTER USING IV ACCESS; Start at 15:00; Stop 06/03/16 at 10:23; Status DC IV Flush (NS Flush) 2 ml BID FLUSH Last administered on 06/02/16at 21:00; Start 05/29/16 at 21:00; Stop 06/03/16 at 10:23; Status DC Ondansetron HCl (Zofran Inj) 4 mg Q6H PRN IVP NAUSEA OR VOMITING; Start at 15:00; Stop 06/03/16 at 14:04; Status DC Naloxone HCl 0.4 mg 0.4 mg UNSCH PRN IV SEE LABEL COMMENTS; Start 05/29/16 at 15:00 Ceftriaxone Sodium/Sodium Chloride (Rocephin Inj/NS Inj) 100 ml @ 200 mls/hr Q12H IV Last administered on 06/02/16at 04:47; Start 05/29/16 at 16:00; Stop 06/02/16 at 10:27; Status DC Acetaminophen/ Butalbital/ Caffeine (Fioricet 325-50-40) 1 tab Q6H PRN PO PAIN GREATER THAN 5 or headach Last administered on 07/16/16t 06:07; Start 05/29/16 at 15:00 Heparin Sodium (Porcine) (Heparin Inj) 5,000 units Q12HR SQ Last administered on 07/15/16 21:55; Start 05/29/16 at 21:00 Levetriacetam (Keppra) 500 mg Q12HR PO Last administered on 07/15/16 21:54; Start 05/29/16 at 21:00 Metoprolol Tartrate (Lopressor) 25 mg Q12HR PO Last administered on 05/31/16at 08:33; Start 05/29/16 at 21:00; Stop 06/02/16 at 10:29; Status DC Quetiapine Fumarate 25 mg 25 mg BID PO Last administered on 06/02/16at 10:37; Start 05/29/16 at 21:00; Stop 06/02/16 at 10:53; Status DC Sodium Chloride (NS 1000 ml Inj) 1,000 ml @ 100 mls/hr Q10H IV Last administered on 06/01/16at 14:27; Start 06/01/16 at 14:30; Stop 06/02/16 at 00 :29; Status DC Morphine Sulfate (Morphine Inj) 2 mg Q3H PRN IV PUSH BREAKTHROUGH PAIN Last administered on 07/13/16 14:15; Start 06/02/16 at 10:30 Metoprolol Tartrate (Lopressor) 50 mg Q12HR PO Last administered on 06/03/16at 20:29; Start 06/02/16 at 21:00; Stop 06/05/16 at 09:12; Status DC Quetiapine Fumarate (SEROquel) 50 mg BID PO Last administered on 06/05/16at 20: 36; Start 06/02/16 at 21:00; Stop 06/06/16 at 07:57; Status DC Diphenhydramine HCl (Benadryl 2% Cream) 1 applic TID PRN TOPICAL ITCHING; Start 06/02/16 at 11:15 Iohexol 95 ml 95 ml STK-MED ONCE IV ; Start 06/02/16 at 20:32; Stop 06/02/16 at 20:33; Status DC Sodium Chloride (NS 1000 ml Inj) 1,000 ml @ 84 mls/hr [id number] IV Last administered on 06/03/16at 21:40; Start 06/03/16 at 09:45; Stop 06/04/16 at 07 :32; Status DC IV Flush (NS Flush) 2 ml UNSCH PRN IV FLUSH FLUSH AFTER USING IV ACCESS; Start 06/03/16 at 09:45 IV Flush (NS Flush) 2 ml BID IV FLUSH Last administered on 07/15/16 21:55; Start 06/03/16 at 21:00 Acetaminophen (Tylenol) 650 mg Q6H PRN PO FEVER >100F Last administered on at 09:11; Start 06/03/16 at 09:45 Ondansetron HCl (Zofran Inj) 4 mg Q6H PRN IV NAUSEA OR VOMITING Last administered on 07/08/16 08:54; Start 06/03/16 at 09:45 Docusate Sodium (Colace) 100 mg BID PO Last administered on 07/04/16 08:16; Start 06/03/16 at 21:00; Status Hold Sennosides (Senokot) 17.2 mg BID PO Last administered on 07/04/16at 20:41; Start 06/03/16 at 09:45; Status Hold Albuterol/ Ipratropium (Duoneb Neb) 1 ampule Q2HR NEB PRN INH WHEEZING; Start 06/03/16 at 09:45 Miscellaneous Information 1 Q361D XX ; Start 06/03/16 at 09:45 Chlorhexidine Gluconate (Chlorhexidine 2% Cloth) 3 pack Taper DAILY@04 TOP Last administered on 07/14/16 04:00; Start 06/04/16 at 04:00; Stop 05/31/17 at 03:59 Chlorhexidine Gluconate 3 pack 3 pack UNSCH PRN TOP HYGIENIC CARE; Start 06/03 at 09:45 Thiamine HCl/ Sodium Chloride (Thiamine Inj/NS Inj) 101 ml @ 101 mls/hr DAILY IV Last administered on 06/27/16at 08:19; Start 06/04/16 at 09:00; Stop 06/27 at 09:05; Status DC Docusate Sodium (Colace) 100 mg BID PO ; Start 06/03/16 at 21:00; Status UNV Polyethylene Glycol (Miralax) 17 gm DAILY PO Last administered on 06/30/16at 09 :11; Start 06/04/16 at 09:00; Stop 07/03/16 at 09:09; Status DC Microfibriller Collagen Hemostat (Avitene Bandage) 1 bandage STK-MED ONCE .ROUTE ; Start 06/03/16 at 11:17; Stop 06/03/16 at 11:18; Status DC Thrombin (Thrombin Top Soln) 10,000 units STK-MED ONCE .ROUTE ; Start 06/03/16 at 11:17; Stop 06/03/16 at 11:18; Status DC Gelatin (Gelfoam 100 Top) 1 foam STK-MED ONCE .ROUTE ; Start 06/03/16 at 11:18 ; Stop 06/03/16 at 11:19; Status DC Cefazolin Sodium (Ancef Inj) 1,000 mg STK-MED ONCE .ROUTE ; Start 06/03/16 at 11:18; Stop 06/03/16 at 11:19; Status DC Gentamicin Sulfate (Gentamicin Inj) 240 mg STK-MED ONCE .ROUTE ; Start at 11:18; Stop 06/03/16 at 11:19; Status DC Lidocaine/ Epinephrine (Xylocaine-Epi 1%-1:100,000 Inj) 20 ml STK-MED ONCE .ROUTE ; Start 06/03/16 at 11:18; Stop 06/03/16 at 11:19; Status DC Vancomycin HCl 1000 mg 1,000 mg STK-MED ONCE .ROUTE ; Start 06/03/16 at 11:21; Stop 06/03/16 at 11:22; Status DC Cefazolin Sodium/ Dextrose (Ancef 2 Gm Premix) 50 ml @ As Directed STK-MED ONCE .ROUTE ; Start 06/03/16 at 11:22; Stop 06/03/16 at 11:23; Status DC Levetriacetam (Keppra Inj) 500 mg STK-MED ONCE IV ; Start 06/03/16 at 11:22; Stop 06/03/16 at 11:23; Status DC Bacitracin 15 applic 15 applic STK-MED ONCE .ROUTE ; Start 06/03/16 at 11:22; Stop 06/03/16 at 11:23; Status DC Sodium Chloride (NS 250 ml Inj) 250 ml @ As Directed STK-MED ONCE .ROUTE ; Start 06/03/16 at 11:22; Stop 06/03/16 at 11:23; Status DC Propofol 100 mg 100 mg ONCE ONCE IV ; Start 06/03/16 at 13:33; Stop 06/03/16 at 15:16; Status DC Propofol 50 ml @ As Directed STK-MED ONCE .ROUTE ; Start 06/03/16 at 13:32; Stop 06/03/16 at 13:33; Status DC Sodium Chloride 1,000 ml @ 100 mls/hr Q10H IV Last administered on 06/05/16at 22:23; Start 06/03/16 at 21:16; Status Hold Cefazolin Sodium/ Dextrose 50 ml @ 150 mls/hr INSPECTOR SCALES PRN IV GIVE 60 MIN PRIOR TO INSICION; Start 06/03/16 at 21:30; Stop 06/05/16 at 21:29; Status DC Vancomycin HCl/ Sodium Chloride (Vancomycin Inj/ NS 250 ml Inj) 250 ml @ 250 mls/hr INSPECTOR SCALES PRN IV GIVE 60 MIN PRIUOR TO INCISION; Start 06/03/16 at 21:30 ; Stop 06/05/16 at 21:29; Status DC Chlorhexidine Gluconate (Hibiclens 4% Top Soln) 1 applic HS TOP ; Start at 21:00; Stop 06/05/16 at 21:01; Status DC Water (Free Water) VOLUME: 100 ML Q6HR G-TUBE Last administered on 06/16/16at 06:12; Start 06/04/16 at 12:00; Stop 06/16/16 at 07:43; Status DC Famotidine (Pepcid) 20 mg BID NG Last administered on 07/15/16 21:55; Start 06/04/16 at 09:00 Metoprolol Tartrate (Lopressor) 12.5 mg Q12HR PO Last administered on 07/07/16 08:49; Start 06/05/16 at 21:00; Stop 07/07/16 at 08:53; Status DC Quetiapine Fumarate (SEROquel) 25 mg BID PO Last administered on 07/15/16 21: 55; Start 06/06/16 at 09:00 Loperamide HCl 2 mg 2 mg UNSCH PRN TUBE DIARRHEA Last administered on at 14:57; Start 06/06/16 at 16:15 Pharmacy Profile Note 0 ml @ 0 mls/hr UNSCH OTHER ; Start 06/10/16 at 10:15; Stop 06/18/16 at 17:56; Status DC Vancomycin HCl/ Sodium Chloride (Vancomycin Inj/ NS 250 ml Inj) 250 ml @ 250 mls/hr Q12H IV Last administered on 06/12/16at 02:06; Start 06/10/16 at 12:00; Stop 06/12/16 at 09:26; Status DC Miscellaneous Information SPECIFIC LAB TO BE FERNY... ONCE ONCE XX Last administered on 06/12/16at 01:28; Start 06/11/16 at 23:45; Stop 06/11/16 at 23:46 ; Status DC Amphotericin B Liposome/Dextrose (Ambisome Inj/ D5W Inj) 200 ml @ 125 mls/hr Q24H IV Last administered on 06/11/16at 14:51; Start 06/11/16 at 15:00; Stop at 20:26; Status DC Amphotericin B (Amphotericin B Conv Inj) 1 mg Q24H OTHER Last administered on 06/12/16at 11:00; Start 06/11/16 at 18:00; Stop 06/12/16 at 19:27; Status DC Diphenhydramine HCl (Benadryl Inj) 25 mg Q24H PRN IV Last administered on at 16:23; Start 06/11/16 at 17:00; Stop 07/03/16 at 09:09; Status DC Hydrocortisone Sodium Succinate 25 mg 25 mg Q24H PRN IV PRE-MED PRIOR TO AMPHOTERCIN B Last administered on 06/30/16at 09:54; Start 06/11/16 at 17:00 Amphotericin B Liposome 280 mg/ Dextrose 280 ml @ 125 mls/hr Q24H IV Last administered on 06/21/16at 14:21; Start 06/12/16 at 15:00; Stop 06/22/16 at 13: 48; Status DC Potassium Chloride 100 ml @ 50 mls/hr Q2H PRN IV For Potassium 2.8 - 3.2 mEq/ L Last administered on 07/11/16t 09:24; Start 06/12/16 at 07:15 Potassium Chloride (KCl 20 Meq Premix Inj) 100 ml @ 50 mls/hr Q2H PRN IV For Potassium 2.8 - 3.2 mEq/L Last administered on 06/26/16at 11:32; Start 06/12/16 at 07:15 Potassium Chloride 40 meq 40 meq UNSCH PRN PO/TUBE For Potassium 3.3 - 3.5 mEq/ L Last administered on 06/28/16at 06:33; Start 06/12/16 at 07:15 Potassium Chloride 100 ml @ 25 mls/hr UNSCH PRN IV For Potassium 3.3 - 3.5 mEq /L; Start 06/12/16 at 07:15 Potassium Chloride 100 ml @ 50 mls/hr Q2H PRN IV For Potassium 3.3 - 3.5 mEq/ L Last administered on 06/26/16at 09:24; Start 06/12/16 at 07:15 Magnesium Sulfate/ Sodium Chloride (Magnesium Sulfate Inj/NS Inj) 100 ml @ 50 mls/hr UNSCH PRN IV For Magnesium 0.9 - 1.1 mg/dL; Start 06/12/16 at 07:15 Magnesium Oxide 800 mg 800 mg UNSCH PRN PO For Magnesium 1.2 - 1.6 mg/dL; Start 06/12/16 at 07:15 Magnesium Sulfate/ Sodium Chloride (Magnesium Sulfate Inj/NS Inj) 100 ml @ 50 mls/hr UNSCH PRN IV For Magnesium 1.2 - 1.6 mg/dL; Start 06/12/16 at 07:15 Potassium Phosphate 2000 mg 2,000 mg Q4H PRN PO For Phosphorus < 2.5 mg/dL; Start 06/12/16 at 07:15 Sodium Phosphate/ Sodium Chloride (Sodium Phosphate Inj/NS 250 ml Inj) 250 ml @ 42 mls/hr UNSCH PRN IV For Phosphorus < 2.5 mg/dL; Start 06/12/16 at 07:15 Potassium Chloride (KCl 40 Meq/30 ml Liq) 40 meq UNSCH PRN PO/TUBE SEE LABEL COMMENTS; Start 06/12/16 at 07:15 Potassium Phosphate 2000 mg 2,000 mg UNSCH PRN PO/TUBE SEE LABEL COMMENTS; Start 06/12/16 at 07:15 Potassium Phosphate/Sodium Chloride (Potassium Phosphate Inj/NS 250 ml Inj) 260 ml @ 42 mls/hr UNSCH PRN IV SEE LABEL COMMENTS; Start 06/12/16 at 07:15 Midazolam HCl (Versed Inj) 10 mg ONCE ONCE IV Last administered on 06/12/16at 10:30; Start 06/12/16 at 09:30; Stop 06/12/16 at 09:31; Status DC Fentanyl Citrate 100 mcg 100 mcg ONCE ONCE IM Last administered on 06/12/16at 10:00; Start 06/12/16 at 09:30; Stop 06/12/16 at 09:31; Status DC Vancomycin HCl/ Sodium Chloride (Vancomycin Inj/ NS 250 ml Inj) 262.5 ml @ 250 mls/hr Q12H IV Last administered on 06/14/16at 12:38; Start 06/12/16 at 12:00; Stop 06/14/16 at 13:50; Status DC Miscellaneous Information SPECIFIC LAB TO BE DRAWN:VANCOMYCIN TROUGH DATE TO... ONCE ONCE XX Last administered on 06/14/16at 11:45; Start 06/14/16 at 11:45; Stop 06/14/16 at 11:46; Status DC Amphotericin B 1 mg 1 mg Q24H OTHER Last administered on 06/29/16at 10:15; Start 06/13/16 at 09:00; Stop 06/30/16 at 09:55; Status DC Vancomycin HCl/ Sodium Chloride (Vancomycin Inj/ NS 250 ml Inj) 250 ml @ 250 mls/hr Q12H IV Last administered on 06/16/16at 12:47; Start 06/15/16 at 00:00 ; Stop 06/16/16 at 15:56; Status DC Miscellaneous Information SPECIFIC LAB TO BE FERNY... ONCE ONCE XX Last administered on 06/16/16at 11:45; Start 06/16/16 at 11:45; Stop 06/16/16 at 11 :46; Status DC Sodium Chloride (NS 1000 ml Inj) 1,000 ml @ 999 mls/hr BOLUS ONCE IV Last administered on 06/15/16at 09:14; Start 06/15/16 at 09:00; Stop 06/15/16 at 10 :00; Status DC Water 200 ml 200 ml Q6HR G-TUBE Last administered on 06/28/16at 06:23; Start 06/16/16 at 12:00; Stop 06/28/16 at 11:17; Status DC Vancomycin HCl/ Sodium Chloride (Vancomycin Inj/ NS 250 ml Inj) 250 ml @ 250 mls/hr Q18H IV Last administered on 06/18/16at 00:23; Start 06/17/16 at 06:00 ; Stop 06/18/16 at 17:56; Status DC Miscellaneous Information SPECIFIC LAB TO BE DRAWN:VANCOMYCIN DATE TO BE DRChip.. ONCE ONCE XX ; Start 06/19/16 at 11:45; Stop 06/19/16 at 11:45; Status DC IV Flush (NS Flush) See Protocol DAILY IVF Last administered on 07/14/16 09:42 ; Start 06/23/16 at 09:00 IV Flush (NS Flush) See Protocol UNSCH PRN IVF SEE PROTOCOL TABLE; Start 06/22 at 12:30 IV Flush See Protocol UNSCH PRN IVF SEE PROTOCOL TABLE; Start 06/22/16 at 12: 30 Fluconazole/ Sodium Chloride 400 ml @ 200 mls/hr Q24H IV Last administered on 07/15/16 14:25; Start 06/22/16 at 14:00 Fluconazole/ Sodium Chloride (Diflucan 400 Mg Premix Bag) 400 ml @ 200 mls/hr Q24H IV Last administered on 07/15/16 17:32; Start 06/23/16 at 16:00 Thiamine HCl (Vitamin B1) 100 mg DAILY PO Last administered on 07/15/16 08:13 ; Start 06/28/16 at 09:00 Water 50 ml 50 ml Q6HR PEG Last administered on 07/16/16 06:00; Start at 12:00 Sodium Chloride (NS 1000 ml Inj) 1,000 ml @ 84 mls/hr [id number] IV Last administered on 07/01/16at 17:30; Start 07/01/16 at 17:30; Stop 07/02/16 at 05 :24; Status DC Diphenhydramine HCl (Benadryl Inj) 25 mg Q6HR PRN IV pruritis Last administered on 07/03/16at 14:53; Start 07/03/16 at 12:00 Polyethylene Glycol (Miralax) 17 gm Q12H PO Last administered on 07/14/16 21:18 ; Start 07/03/16 at 20:00 Metoclopramide HCl (Reglan Inj) 5 mg Q8HR IV PUSH Last administered on 05:05; Start 07/03/16 at 14:00; Stop 07/08/16 at 13:59; Status DC Metoprolol Tartrate (Lopressor) 25 mg Q12HR PO Last administered on 07/15/16 21:55; Start 07/07/16 at 09:00 Hydralazine HCl (Apresoline Inj) 10 mg Q1HR PRN IV PUSH SBP>160, DBP>90; Start 07/07/16 at 09:00 Labetalol HCl 10 mg 10 mg Q1HR PRN IV PUSH SBP>160, DBP>90, HR>65; Start at 09:00 Sodium Chloride (NS 500 ml Inj) 500 ml @ 500 mls/hr BOLUS ONCE IV Last administered on 07/09/16 12:45; Start 07/09/16 at 12:45; Stop 07/09/16 at 13:44; Status DC Metoclopramide HCl (Reglan Inj) 5 mg Q8HR IV PUSH Last administered on 10:29; Start 07/10/16 at 09:45; Stop 07/10/16 at 10:44; Status DC Metoclopramide HCl 5 mg 5 mg Q8H IV PUSH Last administered on 07/16/16 02:16; Start 07/10/16 at 18:00 Sodium Chloride 500 ml @ 500 mls/hr BOLUS ONCE IV Last administered on 13:45; Start 07/10/16 at 13:45; Stop 07/10/16 at 14:44; Status DC Sodium Chloride (NS 500 ml Inj) 500 ml @ 0 mls/hr BOLUS IV ; Start 07/10/16 at 14 :00 Potassium Chloride (KCl 40 Meq/30 ml Liq) 40 meq ONCE ONCE NG ; Start 07/11/16 at 14:15; Stop 07/11/16 at 14:16; Status DC Line: PICC Side: Right Location: Antecubital A/P Assessment and Plan A/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 followed by suboccipital craniotomy for hematoma evacuation and AVM resection - EVD out by patient - Neurochecks per ICU routine - Keppra 500 mg twice a day for seizure prophylaxis - Strict BP control -neurosurgery signed off -continue rehab efforts CSF leak - repaired - EVD was removed by patient overnight. - no need for SEAT [employer] shunt at this time per NSGY - Continue Seroquel 25 mg twice a day Hypertension - Metoprolol 25 mg every 12 hours - continue Telemetry Acute protein calorie malnutritionmild - Continue Jevity 1.5 goal 50 cc an hour - mechanical soft diet - advance to regular as tolerated - Colace Senokot for bowel regimen has been held due to multiple bowel movements - Pepcid for GI prophylaxis - Continue Reglan 5 mg IV every 8 hours for prokinetic agent Normocytic anemia - H&H stable - Does not meet transfusion triggers at this time. Hermila Ventriculitis - post intraventricular Amphotericin B administration. Last dose 06/30 - systemic D/Gera - right ventriculostomy 06/03, replaced 06/12 - Continue systemic Diflucan 800 mg IV daily - management per ID - no growth on a sample 06/23 - repeat CSF on Thursday06/30/2016 and 07/07/2016 no growth Enterococcus Bacteremia - Completed course of Vanc IV 06/24 GI Prophylaxis Pepcid 20 mg twice a day: DVT Prophylaxis - SCDs - Heparin subQ transfer to telemetry. d/w the Kayla Martinez MD Jul 16, 2016 08:29
[2016-07-16] MEDS: POLYETHYLENE GLYCOL 17 GM PKG PO SCH ×2 (09:23→20:00)
[2016-07-16] MEDS: FAMOTIDINE 20 MG TAB NG SCH ×2 (09:24→20:07)
[2016-07-16] MEDS: METOPROLOL TARTRATE 25 MG TAB PO SCH ×2 (09:24→20:07)
[2016-07-16] MEDS: HEPARIN SODIUM - SQ 10,000 UNITS/ML VIAL SQ SCH ×2 (09:24→20:08)
[2016-07-16] MEDS: THIAMINE HCL 100 MG TAB PO SCH (09:24)
[2016-07-16] MEDS: levETIRAcetam 500 MG TAB PO SCH ×2 (09:25→20:07)
[2016-07-16] MEDS: SODIUM CHLORIDE 0.9% FLUSH 5 ML FLUSH IV FLUSH SCH ×2 (09:25→20:08)
[2016-07-16] MEDS: QUEtiapine FUMARATE 25 MG TAB PO SCH ×2 (09:25→20:08)
[2016-07-16] MEDS: FLUCONAZOLE 400 MG PREMIX BAG 400 ML IV SCH ×2 (15:30→17:11)
[2016-07-17] VITALS: BP 125/72; PULSE 67; RESP 20; TEMP 97.5; O2SAT 96
[2016-07-17] MEDS: METOCLOPRAMIDE HCL 10 MG/2 ML VIAL IV PUSH SCH ×3 (02:44→18:46)
[2016-07-17 04:00] VITALS: BP 140/77; PULSE 63; RESP 20; TEMP 97.6; O2SAT 94
[2016-07-17] MEDS: FREE WATER PEG SCH ×4 (06:00→18:00)
[2016-07-17 08:00] VITALS: BP 131/71; PULSE 82; RESP 18; TEMP 97.6; O2SAT 99
[2016-07-17] MEDS: SODIUM CHLORIDE 0.9% FLUSH 5 ML FLUSH IV FLUSH SCH ×2 (09:00→21:43)
[2016-07-17] MEDS: POLYETHYLENE GLYCOL 17 GM PKG PO SCH ×2 (09:38→21:42)
[2016-07-17] MEDS: HEPARIN SODIUM - SQ 10,000 UNITS/ML VIAL SQ SCH ×2 (09:39→21:42)
[2016-07-17] MEDS: levETIRAcetam 500 MG TAB PO SCH ×2 (09:40→21:42)
[2016-07-17] MEDS: QUEtiapine FUMARATE 25 MG TAB PO SCH ×2 (09:40→21:42)
[2016-07-17] MEDS: THIAMINE HCL 100 MG TAB PO SCH (09:40)
[2016-07-17] MEDS: METOPROLOL TARTRATE 25 MG TAB PO SCH ×2 (09:40→21:42)
[2016-07-17] MEDS: FAMOTIDINE 20 MG TAB NG SCH ×2 (09:40→21:42)
[2016-07-17 12:00] VITALS: BP 127/63; PULSE 74; RESP 18; TEMP 98.1; O2SAT 97
--- NOTE | 2016-07-17 12:46 | HHI.PR ---
Subjective Remarks resting comfortably with no distress. headache is better. no fever. d/w the RN and no acute issues over night. Objective Vitals Vital Signs Date Time Temp Pulse Resp B/P Pulse Ox O2 Delivery O2 Flow Rate FiO2 07/17/16 08:00 97.6 82 18 131/71 99 07/17/16 04:00 97.6 63 20 140/77 94 07/17/16 00:00 97.5 67 20 125/72 96 07/16/16 21:43 95 Nasal Cannula 2.00 07/16/16 20:00 97.8 95 20 191/88 92 07/16/16 18:00 97.7 67 16 148/83 97 07/16/16 16:00 98.3 68 12 158/95 99 07/16/16 14:00 58 I/O 07/16/16 07/16/16 07/16/16 07/17/16 07/17/16 07/17/16 07:00 15:00 23:00 07:00 15:00 23:00 Intake Total 822 ml 769 ml 60 ml 980 ml Output Total 600 ml 675 ml 0 ml 370 ml Balance 222 ml 94 ml 60 ml 610 ml Intake Oral 175 ml 50 ml 60 ml 0 ml IV Total 154 ml 185 ml Tube Feeding 333 ml 374 ml 780 ml Tube Irrigant 60 ml 60 ml Other 100 ml 100 ml 200 ml Output Urine Total 600 ml 675 ml 0 ml 370 ml # Bowel Movements 0 0 1 0 Result Diagram: 07/16/16 0548 07/16/16 0548 Imaging Last Impressions Head CT 07/15/16 0600 Signed Impressions: Service Date/Time: Friday, July 15, 2016 05:43 - CONCLUSION: 1. Fluid collection in the posterior soft tissues has significantly decreased in prominence. 2. Post surgical changes in the left cerebellum with previous occipital craniectomy. Altaf Alfaro MD Abdomen X-Ray 07/10/16 0937 Signed Impressions: Service Date/Time: July 09:57 - CONCLUSION: Stable nonspecific benign abdomen appearance Brian Vasquez MD Lower Extremity Ultrasound 07/05/16 0000 Signed Impressions: Service Date/Time: Tuesday, July 05, 2016 11:28 - CONCLUSION: Normal examination. Jese Malik MD Chest X-Ray 06/22/16 0000 Signed Impressions: Service Date/Time: Wednesday, June 22, 2016 12:54 - CONCLUSION: No acute cardiopulmonary disease identified. Tommy Ramirez MD ADDENDUM: There is a right arm PICC appropriately positioned, tip at the atriocaval junction. Brian Hu MD Objective Remarks GENERAL: This is a well-nourished, well-developed patient, in no apparent distress. CARDIOVASCULAR: Regular rate and regular rhythm without murmurs, gallops, or rubs. RESPIRATORY: Clear to auscultation. Breath sounds equal bilaterally. No wheezes , rales, or rhonchi. GASTROINTESTINAL: Abdomen soft, non-tender, nondistended. Normal, active bowel sounds MUSCULOSKELETAL: Extremities without clubbing, cyanosis, or edema. NEURO: awake and alert- oriented to person and partly to place Medications and IVs Current Medications IV Flush (NS Flush) 2 ml UNSCH PRN FLUSH FLUSH AFTER USING IV ACCESS; Start at 15:00; Stop 06/03/16 at 10:23; Status DC IV Flush (NS Flush) 2 ml BID FLUSH Last administered on 06/02/16at 21:00; Start 05/29/16 at 21:00; Stop 06/03/16 at 10:23; Status DC Ondansetron HCl (Zofran Inj) 4 mg Q6H PRN IVP NAUSEA OR VOMITING; Start at 15:00; Stop 06/03/16 at 14:04; Status DC Naloxone HCl 0.4 mg 0.4 mg UNSCH PRN IV SEE LABEL COMMENTS; Start 05/29/16 at 15:00 Ceftriaxone Sodium/Sodium Chloride (Rocephin Inj/NS Inj) 100 ml @ 200 mls/hr Q12H IV Last administered on 06/02/16at 04:47; Start 05/29/16 at 16:00; Stop 06/02/16 at 10:27; Status DC Acetaminophen/ Butalbital/ Caffeine (Fioricet 325-50-40) 1 tab Q6H PRN PO PAIN GREATER THAN 5 or headach Last administered on 07/16/16 06:07; Start 05/29/16 at 15:00 Heparin Sodium (Porcine) (Heparin Inj) 5,000 units Q12HR SQ Last administered on 07/17/16 09:39; Start 05/29/16 at 21:00 Levetriacetam (Keppra) 500 mg Q12HR PO Last administered on 07/17/16 09:40; Start 05/29/16 at 21:00 Metoprolol Tartrate (Lopressor) 25 mg Q12HR PO Last administered on 05/31/16at 08:33; Start 05/29/16 at 21:00; Stop 06/02/16 at 10:29; Status DC Quetiapine Fumarate 25 mg 25 mg BID PO Last administered on 06/02/16at 10:37; Start 05/29/16 at 21:00; Stop 06/02/16 at 10:53; Status DC Sodium Chloride (NS 1000 ml Inj) 1,000 ml @ 100 mls/hr Q10H IV Last administered on 06/01/16at 14:27; Start 06/01/16 at 14:30; Stop 06/02/16 at 00 :29; Status DC Morphine Sulfate (Morphine Inj) 2 mg Q3H PRN IV PUSH BREAKTHROUGH PAIN Last administered on 07/13/16 14:15; Start 06/02/16 at 10:30 Metoprolol Tartrate (Lopressor) 50 mg Q12HR PO Last administered on 06/03/16at 20:29; Start 06/02/16 at 21:00; Stop 06/05/16 at 09:12; Status DC Quetiapine Fumarate (SEROquel) 50 mg BID PO Last administered on 06/05/16at 20: 36; Start 06/02/16 at 21:00; Stop 06/06/16 at 07:57; Status DC Diphenhydramine HCl (Benadryl 2% Cream) 1 applic TID PRN TOPICAL ITCHING; Start 06/02/16 at 11:15 Iohexol 95 ml 95 ml STK-MED ONCE IV ; Start 06/02/16 at 20:32; Stop 06/02/16 at 20:33; Status DC Sodium Chloride (NS 1000 ml Inj) 1,000 ml @ 84 mls/hr [id number] IV Last administered on 06/03/16at 21:40; Start 06/03/16 at 09:45; Stop 06/04/16 at 07 :32; Status DC IV Flush (NS Flush) 2 ml UNSCH PRN IV FLUSH FLUSH AFTER USING IV ACCESS Last administered on 07/17/16 02:44; Start 06/03/16 at 09:45 IV Flush (NS Flush) 2 ml BID IV FLUSH Last administered on 07/16/16 20:08; Start 06/03/16 at 21:00 Acetaminophen (Tylenol) 650 mg Q6H PRN PO FEVER >100F Last administered on at 09:11; Start 06/03/16 at 09:45 Ondansetron HCl (Zofran Inj) 4 mg Q6H PRN IV NAUSEA OR VOMITING Last administered on 07/08/16 08:54; Start 06/03/16 at 09:45 Docusate Sodium (Colace) 100 mg BID PO Last administered on 07/04/16 08:16; Start 06/03/16 at 21:00; Status Hold Sennosides (Senokot) 17.2 mg BID PO Last administered on 07/04/16at 20:41; Start 06/03/16 at 09:45; Status Hold Albuterol/ Ipratropium (Duoneb Neb) 1 ampule Q2HR NEB PRN INH WHEEZING; Start 06/03/16 at 09:45 Miscellaneous Information 1 Q361D XX ; Start 06/03/16 at 09:45 Chlorhexidine Gluconate (Chlorhexidine 2% Cloth) Taper DAILY@04 TOP Last administered on 07/14/16 04:00; Start 06/04/16 at 04:00; Stop 05/31/17 at 03: 59 Chlorhexidine Gluconate 3 pack 3 pack UNSCH PRN TOP HYGIENIC CARE; Start 06/03 at 09:45 Thiamine HCl/ Sodium Chloride (Thiamine Inj/NS Inj) 101 ml @ 101 mls/hr DAILY IV Last administered on 06/27/16 08:19; Start 06/04/16 at 09:00; Stop 06/27 at 09:05; Status DC Docusate Sodium (Colace) 100 mg BID PO ; Start 06/03/16 at 21:00; Status UNV Polyethylene Glycol (Miralax) 17 gm DAILY PO Last administered on 06/30/16at 09 :11; Start 06/04/16 at 09:00; Stop 07/03/16 at 09:09; Status DC Microfibriller Collagen Hemostat (Avitene Bandage) 1 bandage STK-MED ONCE .ROUTE ; Start 06/03/16 at 11:17; Stop 06/03/16 at 11:18; Status DC Thrombin (Thrombin Top Soln) 10,000 units STK-MED ONCE .ROUTE ; Start 06/03/16 at 11:17; Stop 06/03/16 at 11:18; Status DC Gelatin (Gelfoam 100 Top) 1 foam STK-MED ONCE .ROUTE ; Start 06/03/16 at 11:18 ; Stop 06/03/16 at 11:19; Status DC Cefazolin Sodium (Ancef Inj) 1,000 mg STK-MED ONCE .ROUTE ; Start 06/03/16 at 11:18; Stop 06/03/16 at 11:19; Status DC Gentamicin Sulfate (Gentamicin Inj) 240 mg STK-MED ONCE .ROUTE ; Start at 11:18; Stop 06/03/16 at 11:19; Status DC Lidocaine/ Epinephrine (Xylocaine-Epi 1%-1:100,000 Inj) 20 ml STK-MED ONCE .ROUTE ; Start 06/03/16 at 11:18; Stop 06/03/16 at 11:19; Status DC Vancomycin HCl 1000 mg 1,000 mg STK-MED ONCE .ROUTE ; Start 06/03/16 at 11:21; Stop 06/03/16 at 11:22; Status DC Cefazolin Sodium/ Dextrose (Ancef 2 Gm Premix) 50 ml @ As Directed STK-MED ONCE .ROUTE ; Start 06/03/16 at 11:22; Stop 06/03/16 at 11:23; Status DC Levetriacetam (Keppra Inj) 500 mg STK-MED ONCE IV ; Start 06/03/16 at 11:22; Stop 06/03/16 at 11:23; Status DC Bacitracin 15 applic 15 applic STK-MED ONCE .ROUTE ; Start 06/03/16 at 11:22; Stop 06/03/16 at 11:23; Status DC Sodium Chloride (NS 250 ml Inj) 250 ml @ As Directed STK-MED ONCE .ROUTE ; Start 06/03/16 at 11:22; Stop 06/03/16 at 11:23; Status DC Propofol 100 mg 100 mg ONCE ONCE IV ; Start 06/03/16 at 13:33; Stop 06/03/16 at 15:16; Status DC Propofol 50 ml @ As Directed STK-MED ONCE .ROUTE ; Start 06/03/16 at 13:32; Stop 06/03/16 at 13:33; Status DC Sodium Chloride 1,000 ml @ 100 mls/hr Q10H IV Last administered on 06/05/16at 22:23; Start 06/03/16 at 21:16; Status Hold Cefazolin Sodium/ Dextrose 50 ml @ 150 mls/hr CANDY ATTENDANT PRN IV GIVE 60 MIN PRIOR TO INSICION; Start 06/03/16 at 21:30; Stop 06/05/16 at 21:29; Status DC Vancomycin HCl/ Sodium Chloride (Vancomycin Inj/ NS 250 ml Inj) 250 ml @ 250 mls/hr CANDY ATTENDANT PRN IV GIVE 60 MIN PRIUOR TO INCISION; Start 06/03/16 at 21:30 ; Stop 06/05/16 at 21:29; Status DC Chlorhexidine Gluconate (Hibiclens 4% Top Soln) 1 applic HS TOP ; Start at 21:00; Stop 06/05/16 at 21:01; Status DC Water (Free Water) VOLUME: 100 ML Q6HR G-TUBE Last administered on 06/16/16at 06:12; Start 06/04/16 at 12:00; Stop 06/16/16 at 07:43; Status DC Famotidine (Pepcid) 20 mg BID NG Last administered on 07/17/16 09:40; Start 06/04/16 at 09:00 Metoprolol Tartrate (Lopressor) 12.5 mg Q12HR PO Last administered on 07/07/16 08:49; Start 06/05/16 at 21:00; Stop 07/07/16 at 08:53; Status DC Quetiapine Fumarate (SEROquel) 25 mg BID PO Last administered on 07/17/16 09: 40; Start 06/06/16 at 09:00 Loperamide HCl 2 mg 2 mg UNSCH PRN TUBE DIARRHEA Last administered on at 14:57; Start 06/06/16 at 16:15 Pharmacy Profile Note 0 ml @ 0 mls/hr UNSCH OTHER ; Start 06/10/16 at 10:15; Stop 06/18/16 at 17:56; Status DC Vancomycin HCl/ Sodium Chloride (Vancomycin Inj/ NS 250 ml Inj) 250 ml @ 250 mls/hr Q12H IV Last administered on 06/12/16at 02:06; Start 06/10/16 at 12:00; Stop 06/12/16 at 09:26; Status DC Miscellaneous Information SPECIFIC LAB TO BE FERNY... ONCE ONCE XX Last administered on 06/12/16at 01:28; Start 06/11/16 at 23:45; Stop 06/11/16 at 23:46 ; Status DC Amphotericin B Liposome/Dextrose (Ambisome Inj/ D5W Inj) 200 ml @ 125 mls/hr Q24H IV Last administered on 06/11/16at 14:51; Start 06/11/16 at 15:00; Stop at 20:26; Status DC Amphotericin B (Amphotericin B Conv Inj) 1 mg Q24H OTHER Last administered on 06/12/16at 11:00; Start 06/11/16 at 18:00; Stop 06/12/16 at 19:27; Status DC Diphenhydramine HCl (Benadryl Inj) 25 mg Q24H PRN IV Last administered on at 16:23; Start 06/11/16 at 17:00; Stop 07/03/16 at 09:09; Status DC Hydrocortisone Sodium Succinate 25 mg 25 mg Q24H PRN IV PRE-MED PRIOR TO AMPHOTERCIN B Last administered on 06/30/16at 09:54; Start 06/11/16 at 17:00 Amphotericin B Liposome 280 mg/ Dextrose 280 ml @ 125 mls/hr Q24H IV Last administered on 06/21/16at 14:21; Start 06/12/16 at 15:00; Stop 06/22/16 at 13: 48; Status DC Potassium Chloride 100 ml @ 50 mls/hr Q2H PRN IV For Potassium 2.8 - 3.2 mEq/ L Last administered on 07/11/16t 09:24; Start 06/12/16 at 07:15; Stop 07/16/16 at 08:31; Status DC Potassium Chloride (KCl 20 Meq Premix Inj) 100 ml @ 50 mls/hr Q2H PRN IV For Potassium 2.8 - 3.2 mEq/L Last administered on 06/26/16at 11:32; Start 06/12/16 at 07:15; Stop 07/16/16 at 08:31; Status DC Potassium Chloride 40 meq 40 meq UNSCH PRN PO/TUBE For Potassium 3.3 - 3.5 mEq/ L Last administered on 06/28/16at 06:33; Start 06/12/16 at 07:15; Stop 07/16/16 at 08:31; Status DC Potassium Chloride 100 ml @ 25 mls/hr UNSCH PRN IV For Potassium 3.3 - 3.5 mEq /L; Start 06/12/16 at 07:15; Stop 07/16/16 at 08:31; Status DC Potassium Chloride 100 ml @ 50 mls/hr Q2H PRN IV For Potassium 3.3 - 3.5 mEq/ L Last administered on 06/26/16at 09:24; Start 06/12/16 at 07:15; Stop 07/16/16 at 08:31; Status DC Magnesium Sulfate/ Sodium Chloride (Magnesium Sulfate Inj/NS Inj) 100 ml @ 50 mls/hr UNSCH PRN IV For Magnesium 0.9 - 1.1 mg/dL; Start 06/12/16 at 07:15; Stop 07/16/16 at 08:31; Status DC Magnesium Oxide 800 mg 800 mg UNSCH PRN PO For Magnesium 1.2 - 1.6 mg/dL; Start 06/12/16 at 07:15; Stop 07/16/16 at 08:31; Status DC Magnesium Sulfate/ Sodium Chloride (Magnesium Sulfate Inj/NS Inj) 100 ml @ 50 mls/hr UNSCH PRN IV For Magnesium 1.2 - 1.6 mg/dL; Start 06/12/16 at 07:15; Stop 07/16/16 at 08:31; Status DC Potassium Phosphate 2000 mg 2,000 mg Q4H PRN PO For Phosphorus < 2.5 mg/dL; Start 06/12/16 at 07:15; Stop 07/16/16 at 08:32; Status DC Sodium Phosphate/ Sodium Chloride (Sodium Phosphate Inj/NS 250 ml Inj) 250 ml @ 42 mls/hr UNSCH PRN IV For Phosphorus < 2.5 mg/dL; Start 06/12/16 at 07:15 Potassium Chloride (KCl 40 Meq/30 ml Liq) 40 meq UNSCH PRN PO/TUBE SEE LABEL COMMENTS; Start 06/12/16 at 07:15; Stop 07/16/16 at 08:32; Status DC Potassium Phosphate 2000 mg 2,000 mg UNSCH PRN PO/TUBE SEE LABEL COMMENTS; Start 06/12/16 at 07:15; Stop 07/16/16 at 08:32; Status DC Potassium Phosphate/Sodium Chloride (Potassium Phosphate Inj/NS 250 ml Inj) 260 ml @ 42 mls/hr UNSCH PRN IV SEE LABEL COMMENTS; Start 06/12/16 at 07:15; Stop 07/16/16 at 08:32; Status DC Midazolam HCl (Versed Inj) 10 mg ONCE ONCE IV Last administered on 06/12/16at 10:30; Start 06/12/16 at 09:30; Stop 06/12/16 at 09:31; Status DC Fentanyl Citrate 100 mcg 100 mcg ONCE ONCE IM Last administered on 06/12/16at 10:00; Start 06/12/16 at 09:30; Stop 06/12/16 at 09:31; Status DC Vancomycin HCl/ Sodium Chloride (Vancomycin Inj/ NS 250 ml Inj) 262.5 ml @ 250 mls/hr Q12H IV Last administered on 06/14/16at 12:38; Start 06/12/16 at 12:00; Stop 06/14/16 at 13:50; Status DC Miscellaneous Information SPECIFIC LAB TO BE DRAWN:VANCOMYCIN TROUGH DATE TO... ONCE ONCE XX Last administered on 06/14/16at 11:45; Start 06/14/16 at 11:45; Stop 06/14/16 at 11:46; Status DC Amphotericin B 1 mg 1 mg Q24H OTHER Last administered on 06/29/16at 10:15; Start 06/13/16 at 09:00; Stop 06/30/16 at 09:55; Status DC Vancomycin HCl/ Sodium Chloride (Vancomycin Inj/ NS 250 ml Inj) 250 ml @ 250 mls/hr Q12H IV Last administered on 06/16/16at 12:47; Start 06/15/16 at 00:00 ; Stop 06/16/16 at 15:56; Status DC Miscellaneous Information SPECIFIC LAB TO BE FERNY... ONCE ONCE XX Last administered on 06/16/16at 11:45; Start 06/16/16 at 11:45; Stop 06/16/16 at 11 :46; Status DC Sodium Chloride (NS 1000 ml Inj) 1,000 ml @ 999 mls/hr BOLUS ONCE IV Last administered on 06/15/16at 09:14; Start 06/15/16 at 09:00; Stop 06/15/16 at 10 :00; Status DC Water 200 ml 200 ml Q6HR G-TUBE Last administered on 06/28/16at 06:23; Start 06/16/16 at 12:00; Stop 06/28/16 at 11:17; Status DC Vancomycin HCl/ Sodium Chloride (Vancomycin Inj/ NS 250 ml Inj) 250 ml @ 250 mls/hr Q18H IV Last administered on 06/18/16at 00:23; Start 06/17/16 at 06:00 ; Stop 06/18/16 at 17:56; Status DC Miscellaneous Information SPECIFIC LAB TO BE DRAWN:VANCOMYCIN DATE TO BE DR... ONCE ONCE XX ; Start 06/19/16 at 11:45; Stop 06/19/16 at 11:45; Status DC IV Flush (NS Flush) See Protocol DAILY IVF Last administered on 07/17/16 09:00 ; Start 06/23/16 at 09:00 IV Flush (NS Flush) See Protocol UNSCH PRN IVF SEE PROTOCOL TABLE; Start 06/22 at 12:30 IV Flush See Protocol UNSCH PRN IVF SEE PROTOCOL TABLE; Start 06/22/16 at 12: 30 Fluconazole/ Sodium Chloride 400 ml @ 200 mls/hr Q24H IV Last administered on 07/16/16 15:30; Start 06/22/16 at 14:00 Fluconazole/ Sodium Chloride (Diflucan 400 Mg Premix Bag) 400 ml @ 200 mls/hr Q24H IV Last administered on 07/16/16 17:11; Start 06/23/16 at 16:00 Thiamine HCl (Vitamin B1) 100 mg DAILY PO Last administered on 07/17/16 09:40 ; Start 06/28/16 at 09:00 Water 50 ml 50 ml Q6HR PEG Last administered on 07/17/16 06:00; Start at 12:00 Sodium Chloride (NS 1000 ml Inj) 1,000 ml @ 84 mls/hr [id number] IV Last administered on 07/01/16at 17:30; Start 07/01/16 at 17:30; Stop 07/02/16 at 05 :24; Status DC Diphenhydramine HCl (Benadryl Inj) 25 mg Q6HR PRN IV pruritis Last administered on 07/03/16at 14:53; Start 07/03/16 at 12:00 Polyethylene Glycol (Miralax) 17 gm Q12H PO Last administered on 07/17/16 09: 38; Start 07/03/16 at 20:00 Metoclopramide HCl (Reglan Inj) 5 mg Q8HR IV PUSH Last administered on 05:05; Start 07/03/16 at 14:00; Stop 07/08/16 at 13:59; Status DC Metoprolol Tartrate (Lopressor) 25 mg Q12HR PO Last administered on 07/17/16 09:40; Start 07/07/16 at 09:00 Hydralazine HCl (Apresoline Inj) 10 mg Q1HR PRN IV PUSH SBP>160, DBP>90; Start 07/07/16 at 09:00 Labetalol HCl 10 mg 10 mg Q1HR PRN IV PUSH SBP>160, DBP>90, HR>65; Start at 09:00 Sodium Chloride (NS 500 ml Inj) 500 ml @ 500 mls/hr BOLUS ONCE IV Last administered on 07/09/16 12:45; Start 07/09/16 at 12:45; Stop 07/09/16 at 13:44; Status DC Metoclopramide HCl (Reglan Inj) 5 mg Q8HR IV PUSH Last administered on 10:29; Start 07/10/16 at 09:45; Stop 07/10/16 at 10:44; Status DC Metoclopramide HCl 5 mg 5 mg Q8H IV PUSH Last administered on 07/17/16 09:40; Start 07/10/16 at 18:00 Sodium Chloride 500 ml @ 500 mls/hr BOLUS ONCE IV Last administered on 13:45; Start 07/10/16 at 13:45; Stop 07/10/16 at 14:44; Status DC Sodium Chloride (NS 500 ml Inj) 500 ml @ 0 mls/hr BOLUS IV ; Start 07/10/16 at 14 :00 Potassium Chloride (KCl 40 Meq/30 ml Liq) 40 meq ONCE ONCE NG ; Start 07/11/16 at 14:15; Stop 07/11/16 at 14:16; Status DC Line: PICC Side: Right Location: Antecubital A/P Assessment and Plan A/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 - no need for PROGRAM SUPPORT SPECIALIST shunt at this time per NSGY - Continue Seroquel 25 mg twice a day Hypertension - Metoprolol 25 mg every 12 hours - continue Telemetry Acute protein calorie malnutritionmild - Continue Jevity 1.5 goal 50 cc an hour - mechanical soft diet - advance to regular as tolerated - Colace Senokot for bowel regimen has been held due to multiple bowel movements - Pepcid for GI prophylaxis - Continue Reglan 5 mg IV every 8 hours for prokinetic agent Normocytic anemia - H&H stable - Does not meet transfusion triggers at this time. Hermila Ventriculitis - post intraventricular Amphotericin B administration. Last dose 06/30 - systemic D/Gera - right ventriculostomy 06/03, replaced 06/12 - Continue systemic Diflucan 800 mg IV daily - management per ID - no growth on a sample 06/23 - repeat CSF on Thursday06/30/2016 and 07/07/2016 no growth Enterococcus Bacteremia - Completed course of Vanc IV 06/24 GI Prophylaxis Pepcid 20 mg twice a day: DVT Prophylaxis - SCDs - Heparin subQ d/w the Kayla Martinez MD Jul 17, 2016 12:46
[2016-07-17] MEDS: FLUCONAZOLE 400 MG PREMIX BAG 400 ML IV SCH ×2 (13:56→16:17)
[2016-07-17 16:00] VITALS: BP 124/66; PULSE 72; RESP 20; TEMP 96.9; O2SAT 98
[2016-07-17 20:00] VITALS: BP 140/82; PULSE 69; RESP 18; TEMP 98.3; O2SAT 98
[2016-07-18] VITALS (7 sets, daily range): BP systolic 114–142; BP diastolic 71–93; PULSE 60–99; RESP 16–20; TEMP 97.8–98.7; O2SAT 97–100
[2016-07-18] MEDS: METOCLOPRAMIDE HCL 10 MG/2 ML VIAL IV PUSH SCH ×3 (02:15→18:02)
[2016-07-18] MEDS: CHLORHEXIDINE GLUCONATE 2 % 1 PACK (2 CLOTHS) TOP SCH (04:00)
[2016-07-18] MEDS: FREE WATER PEG SCH ×4 (06:00→18:00)
--- NOTE | 2016-07-18 08:54 | HHI.PR ---
Subjective Remarks in no distress. denies pain. no fever. no new complaints. Objective Vitals Vital Signs Date Time Temp Pulse Resp B/P Pulse Ox O2 Delivery O2 Flow Rate FiO2 07/18/16 08:00 98.1 64 16 142/93 98 07/18/16 03:41 98.4 60 20 124/75 98 07/18/16 00:00 97.8 75 16 114/71 98 07/17/16 20:00 98.3 69 18 140/82 98 07/17/16 16:00 96.9 72 20 124/66 98 07/17/16 12:00 98.1 74 18 127/63 97 I/O 07/17/16 07/17/16 07/17/16 07/18/16 07/18/16 07/18/16 07:00 15:00 23:00 07:00 15:00 23:00 Intake Total 980 ml 1200 ml Output Total 370 ml 600 ml 600 ml Balance 610 ml -600 ml 600 ml Intake Oral 0 ml IV Total 0 ml Tube Feeding 780 ml 600 ml Other 200 ml 600 ml Output Urine Total 370 ml 600 ml 600 ml Tube Feeding Residual Discard 0 ml 0 ml # Bowel Movements 0 2 Result Diagram: 07/16/16 0548 07/16/16 0548 Imaging Last Impressions Head CT 07/15/16 0600 Signed Impressions: Service Date/Time: Friday, July 15, 2016 05:43 - CONCLUSION: 1. Fluid collection in the posterior soft tissues has significantly decreased in prominence. 2. Post surgical changes in the left cerebellum with previous occipital craniectomy. Altaf Alfaro MD Abdomen X-Ray 07/10/16 0937 Signed Impressions: Service Date/Time: July 09:57 - CONCLUSION: Stable nonspecific benign abdomen appearance Brian Vasquez MD Lower Extremity Ultrasound 07/05/16 0000 Signed Impressions: Service Date/Time: Tuesday, July 05, 2016 11:28 - CONCLUSION: Normal examination. Jese Malik MD Chest X-Ray 06/22/16 0000 Signed Impressions: Service Date/Time: Wednesday, June 22, 2016 12:54 - CONCLUSION: No acute cardiopulmonary disease identified. Tommy Ramirez MD ADDENDUM: There is a right arm PICC appropriately positioned, tip at the atriocaval junction. Brian Hu MD Objective Remarks GENERAL: This is a well-nourished, well-developed patient, in no apparent distress. CARDIOVASCULAR: Regular rate and regular rhythm without murmurs, gallops, or rubs. RESPIRATORY: Clear to auscultation. Breath sounds equal bilaterally. No wheezes , rales, or rhonchi. GASTROINTESTINAL: Abdomen soft, non-tender, nondistended. Normal, active bowel sounds MUSCULOSKELETAL: Extremities without clubbing, cyanosis, or edema. NEURO: awake and alert- oriented to person and partly to place Medications and IVs Current Medications IV Flush (NS Flush) 2 ml UNSCH PRN FLUSH FLUSH AFTER USING IV ACCESS; Start at 15:00; Stop 06/03/16 at 10:23; Status DC IV Flush (NS Flush) 2 ml BID FLUSH Last administered on 06/02/16at 21:00; Start 05/29/16 at 21:00; Stop 06/03/16 at 10:23; Status DC Ondansetron HCl (Zofran Inj) 4 mg Q6H PRN IVP NAUSEA OR VOMITING; Start at 15:00; Stop 06/03/16 at 14:04; Status DC Naloxone HCl 0.4 mg 0.4 mg UNSCH PRN IV SEE LABEL COMMENTS; Start 05/29/16 at 15:00 Ceftriaxone Sodium/Sodium Chloride (Rocephin Inj/NS Inj) 100 ml @ 200 mls/hr Q12H IV Last administered on 06/02/16at 04:47; Start 05/29/16 at 16:00; Stop 06/02/16 at 10:27; Status DC Acetaminophen/ Butalbital/ Caffeine (Fioricet 325-50-40) 1 tab Q6H PRN PO PAIN GREATER THAN 5 or headach Last administered on 07/16/16 06:07; Start 05/29/16 at 15:00 Heparin Sodium (Porcine) (Heparin Inj) 5,000 units Q12HR SQ Last administered on 07/17/16 21:42; Start 05/29/16 at 21:00 Levetriacetam (Keppra) 500 mg Q12HR PO Last administered on 07/17/16 21:42; Start 05/29/16 at 21:00 Metoprolol Tartrate (Lopressor) 25 mg Q12HR PO Last administered on 05/31/16at 08:33; Start 05/29/16 at 21:00; Stop 06/02/16 at 10:29; Status DC Quetiapine Fumarate 25 mg 25 mg BID PO Last administered on 06/02/16at 10:37; Start 05/29/16 at 21:00; Stop 06/02/16 at 10:53; Status DC Sodium Chloride (NS 1000 ml Inj) 1,000 ml @ 100 mls/hr Q10H IV Last administered on 06/01/16at 14:27; Start 06/01/16 at 14:30; Stop 06/02/16 at 00 :29; Status DC Morphine Sulfate (Morphine Inj) 2 mg Q3H PRN IV PUSH BREAKTHROUGH PAIN Last administered on 07/13/16 14:15; Start 06/02/16 at 10:30 Metoprolol Tartrate (Lopressor) 50 mg Q12HR PO Last administered on 06/03/16at 20:29; Start 06/02/16 at 21:00; Stop 06/05/16 at 09:12; Status DC Quetiapine Fumarate (SEROquel) 50 mg BID PO Last administered on 06/05/16at 20: 36; Start 06/02/16 at 21:00; Stop 06/06/16 at 07:57; Status DC Diphenhydramine HCl (Benadryl 2% Cream) 1 applic TID PRN TOPICAL ITCHING; Start 06/02/16 at 11:15 Iohexol 95 ml 95 ml STK-MED ONCE IV ; Start 06/02/16 at 20:32; Stop 06/02/16 at 20:33; Status DC Sodium Chloride (NS 1000 ml Inj) 1,000 ml @ 84 mls/hr [id number] IV Last administered on 06/03/16at 21:40; Start 06/03/16 at 09:45; Stop 06/04/16 at 07 :32; Status DC IV Flush (NS Flush) 2 ml UNSCH PRN IV FLUSH FLUSH AFTER USING IV ACCESS Last administered on 07/17/16 02:44; Start 06/03/16 at 09:45 IV Flush (NS Flush) 2 ml BID IV FLUSH Last administered on 07/17/16 21:43; Start 06/03/16 at 21:00 Acetaminophen (Tylenol) 650 mg Q6H PRN PO FEVER >100F Last administered on at 09:11; Start 06/03/16 at 09:45 Ondansetron HCl (Zofran Inj) 4 mg Q6H PRN IV NAUSEA OR VOMITING Last administered on 07/08/16 08:54; Start 06/03/16 at 09:45 Docusate Sodium (Colace) 100 mg BID PO Last administered on 07/04/16at 08:16; Start 06/03/16 at 21:00; Status Hold Sennosides (Senokot) 17.2 mg BID PO Last administered on 07/04/16at 20:41; Start 06/03/16 at 09:45; Status Hold Albuterol/ Ipratropium (Duoneb Neb) 1 ampule Q2HR NEB PRN INH WHEEZING; Start 06/03/16 at 09:45 Miscellaneous Information 1 Q361D XX ; Start 06/03/16 at 09:45 Chlorhexidine Gluconate (Chlorhexidine 2% Cloth) Taper DAILY@04 TOP Last administered on 07/14/16 04:00; Start 06/04/16 at 04:00; Stop 05/31/17 at 03: 59 Chlorhexidine Gluconate 3 pack 3 pack UNSCH PRN TOP HYGIENIC CARE; Start 06/03 at 09:45 Thiamine HCl/ Sodium Chloride (Thiamine Inj/NS Inj) 101 ml @ 101 mls/hr DAILY IV Last administered on 06/27/16at 08:19; Start 06/04/16 at 09:00; Stop 06/27 at 09:05; Status DC Docusate Sodium (Colace) 100 mg BID PO ; Start 06/03/16 at 21:00; Status UNV Polyethylene Glycol (Miralax) 17 gm DAILY PO Last administered on 06/30/16at 09 :11; Start 06/04/16 at 09:00; Stop 07/03/16 at 09:09; Status DC Microfibriller Collagen Hemostat (Avitene Bandage) 1 bandage STK-MED ONCE .ROUTE ; Start 06/03/16 at 11:17; Stop 06/03/16 at 11:18; Status DC Thrombin (Thrombin Top Soln) 10,000 units STK-MED ONCE .ROUTE ; Start 06/03/16 at 11:17; Stop 06/03/16 at 11:18; Status DC Gelatin (Gelfoam 100 Top) 1 foam STK-MED ONCE .ROUTE ; Start 06/03/16 at 11:18 ; Stop 06/03/16 at 11:19; Status DC Cefazolin Sodium (Ancef Inj) 1,000 mg STK-MED ONCE .ROUTE ; Start 06/03/16 at 11:18; Stop 06/03/16 at 11:19; Status DC Gentamicin Sulfate (Gentamicin Inj) 240 mg STK-MED ONCE .ROUTE ; Start at 11:18; Stop 06/03/16 at 11:19; Status DC Lidocaine/ Epinephrine (Xylocaine-Epi 1%-1:100,000 Inj) 20 ml STK-MED ONCE .ROUTE ; Start 06/03/16 at 11:18; Stop 06/03/16 at 11:19; Status DC Vancomycin HCl 1000 mg 1,000 mg STK-MED ONCE .ROUTE ; Start 06/03/16 at 11:21; Stop 06/03/16 at 11:22; Status DC Cefazolin Sodium/ Dextrose (Ancef 2 Gm Premix) 50 ml @ As Directed STK-MED ONCE .ROUTE ; Start 06/03/16 at 11:22; Stop 06/03/16 at 11:23; Status DC Levetriacetam (Keppra Inj) 500 mg STK-MED ONCE IV ; Start 06/03/16 at 11:22; Stop 06/03/16 at 11:23; Status DC Bacitracin 15 applic 15 applic STK-MED ONCE .ROUTE ; Start 06/03/16 at 11:22; Stop 06/03/16 at 11:23; Status DC Sodium Chloride (NS 250 ml Inj) 250 ml @ As Directed STK-MED ONCE .ROUTE ; Start 06/03/16 at 11:22; Stop 06/03/16 at 11:23; Status DC Propofol 100 mg 100 mg ONCE ONCE IV ; Start 06/03/16 at 13:33; Stop 06/03/16 at 15:16; Status DC Propofol 50 ml @ As Directed STK-MED ONCE .ROUTE ; Start 06/03/16 at 13:32; Stop 06/03/16 at 13:33; Status DC Sodium Chloride 1,000 ml @ 100 mls/hr Q10H IV Last administered on 06/05/16at 22:23; Start 06/03/16 at 21:16; Status Hold Cefazolin Sodium/ Dextrose 50 ml @ 150 mls/hr 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 PRN IV GIVE 60 MIN PRIOR TO INSICION; Start 06/03/16 at 21:30; Stop 06/05/16 at 21:29; Status DC Vancomycin HCl/ Sodium Chloride (Vancomycin Inj/ NS 250 ml Inj) 250 ml @ 250 mls/hr [employer]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 PRN IV GIVE 60 MIN PRIUOR TO INCISION; Start 06/03/16 at 21:30 ; Stop 06/05/16 at 21:29; Status DC Chlorhexidine Gluconate (Hibiclens 4% Top Soln) 1 applic HS TOP ; Start at 21:00; Stop 06/05/16 at 21:01; Status DC Water (Free Water) VOLUME: 100 ML Q6HR G-TUBE Last administered on 06/16/16at 06:12; Start 06/04/16 at 12:00; Stop 06/16/16 at 07:43; Status DC Famotidine (Pepcid) 20 mg BID NG Last administered on 07/17/16 21:42; Start 06/04/16 at 09:00 Metoprolol Tartrate (Lopressor) 12.5 mg Q12HR PO Last administered on 07/07/16 08:49; Start 06/05/16 at 21:00; Stop 07/07/16 at 08:53; Status DC Quetiapine Fumarate (SEROquel) 25 mg BID PO Last administered on 07/17/16 21: 42; Start 06/06/16 at 09:00 Loperamide HCl 2 mg 2 mg UNSCH PRN TUBE DIARRHEA Last administered on at 14:57; Start 06/06/16 at 16:15 Pharmacy Profile Note 0 ml @ 0 mls/hr UNSCH OTHER ; Start 06/10/16 at 10:15; Stop 06/18/16 at 17:56; Status DC Vancomycin HCl/ Sodium Chloride (Vancomycin Inj/ NS 250 ml Inj) 250 ml @ 250 mls/hr Q12H IV Last administered on 06/12/16at 02:06; Start 06/10/16 at 12:00; Stop 06/12/16 at 09:26; Status DC Miscellaneous Information SPECIFIC LAB TO BE FERNY... ONCE ONCE XX Last administered on 06/12/16at 01:28; Start 06/11/16 at 23:45; Stop 06/11/16 at 23:46 ; Status DC Amphotericin B Liposome/Dextrose (Ambisome Inj/ D5W Inj) 200 ml @ 125 mls/hr Q24H IV Last administered on 06/11/16at 14:51; Start 06/11/16 at 15:00; Stop at 20:26; Status DC Amphotericin B (Amphotericin B Conv Inj) 1 mg Q24H OTHER Last administered on 06/12/16at 11:00; Start 06/11/16 at 18:00; Stop 06/12/16 at 19:27; Status DC Diphenhydramine HCl (Benadryl Inj) 25 mg Q24H PRN IV Last administered on at 16:23; Start 06/11/16 at 17:00; Stop 07/03/16 at 09:09; Status DC Hydrocortisone Sodium Succinate 25 mg 25 mg Q24H PRN IV PRE-MED PRIOR TO AMPHOTERCIN B Last administered on 06/30/16at 09:54; Start 06/11/16 at 17:00 Amphotericin B Liposome 280 mg/ Dextrose 280 ml @ 125 mls/hr Q24H IV Last administered on 06/21/16at 14:21; Start 06/12/16 at 15:00; Stop 06/22/16 at 13: 48; Status DC Potassium Chloride 100 ml @ 50 mls/hr Q2H PRN IV For Potassium 2.8 - 3.2 mEq/ L Last administered on 07/11/16t 09:24; Start 06/12/16 at 07:15; Stop 07/16/16 at 08:31; Status DC Potassium Chloride (KCl 20 Meq Premix Inj) 100 ml @ 50 mls/hr Q2H PRN IV For Potassium 2.8 - 3.2 mEq/L Last administered on 06/26/16at 11:32; Start 06/12/16 at 07:15; Stop 07/16/16 at 08:31; Status DC Potassium Chloride 40 meq 40 meq UNSCH PRN PO/TUBE For Potassium 3.3 - 3.5 mEq/ L Last administered on 06/28/16at 06:33; Start 06/12/16 at 07:15; Stop 07/16/16 at 08:31; Status DC Potassium Chloride 100 ml @ 25 mls/hr UNSCH PRN IV For Potassium 3.3 - 3.5 mEq /L; Start 06/12/16 at 07:15; Stop 07/16/16 at 08:31; Status DC Potassium Chloride 100 ml @ 50 mls/hr Q2H PRN IV For Potassium 3.3 - 3.5 mEq/ L Last administered on 06/26/16at 09:24; Start 06/12/16 at 07:15; Stop 07/16/16 at 08:31; Status DC Magnesium Sulfate/ Sodium Chloride (Magnesium Sulfate Inj/NS Inj) 100 ml @ 50 mls/hr UNSCH PRN IV For Magnesium 0.9 - 1.1 mg/dL; Start 06/12/16 at 07:15; Stop 07/16/16 at 08:31; Status DC Magnesium Oxide 800 mg 800 mg UNSCH PRN PO For Magnesium 1.2 - 1.6 mg/dL; Start 06/12/16 at 07:15; Stop 07/16/16 at 08:31; Status DC Magnesium Sulfate/ Sodium Chloride (Magnesium Sulfate Inj/NS Inj) 100 ml @ 50 mls/hr UNSCH PRN IV For Magnesium 1.2 - 1.6 mg/dL; Start 06/12/16 at 07:15; Stop 07/16/16 at 08:31; Status DC Potassium Phosphate 2000 mg 2,000 mg Q4H PRN PO For Phosphorus < 2.5 mg/dL; Start 06/12/16 at 07:15; Stop 07/16/16 at 08:32; Status DC Sodium Phosphate/ Sodium Chloride (Sodium Phosphate Inj/NS 250 ml Inj) 250 ml @ 42 mls/hr UNSCH PRN IV For Phosphorus < 2.5 mg/dL; Start 06/12/16 at 07:15 Potassium Chloride (KCl 40 Meq/30 ml Liq) 40 meq UNSCH PRN PO/TUBE SEE LABEL COMMENTS; Start 06/12/16 at 07:15; Stop 07/16/16 at 08:32; Status DC Potassium Phosphate 2000 mg 2,000 mg UNSCH PRN PO/TUBE SEE LABEL COMMENTS; Start 06/12/16 at 07:15; Stop 07/16/16 at 08:32; Status DC Potassium Phosphate/Sodium Chloride (Potassium Phosphate Inj/NS 250 ml Inj) 260 ml @ 42 mls/hr UNSCH PRN IV SEE LABEL COMMENTS; Start 06/12/16 at 07:15; Stop 07/16/16 at 08:32; Status DC Midazolam HCl (Versed Inj) 10 mg ONCE ONCE IV Last administered on 06/12/16at 10:30; Start 06/12/16 at 09:30; Stop 06/12/16 at 09:31; Status DC Fentanyl Citrate 100 mcg 100 mcg ONCE ONCE IM Last administered on 06/12/16at 10:00; Start 06/12/16 at 09:30; Stop 06/12/16 at 09:31; Status DC Vancomycin HCl/ Sodium Chloride (Vancomycin Inj/ NS 250 ml Inj) 262.5 ml @ 250 mls/hr Q12H IV Last administered on 06/14/16at 12:38; Start 06/12/16 at 12:00; Stop 06/14/16 at 13:50; Status DC Miscellaneous Information SPECIFIC LAB TO BE DRAWN:VANCOMYCIN TROUGH DATE TO... ONCE ONCE XX Last administered on 06/14/16at 11:45; Start 06/14/16 at 11:45; Stop 06/14/16 at 11:46; Status DC Amphotericin B 1 mg 1 mg Q24H OTHER Last administered on 06/29/16at 10:15; Start 06/13/16 at 09:00; Stop 06/30/16 at 09:55; Status DC Vancomycin HCl/ Sodium Chloride (Vancomycin Inj/ NS 250 ml Inj) 250 ml @ 250 mls/hr Q12H IV Last administered on 06/16/16at 12:47; Start 06/15/16 at 00:00 ; Stop 06/16/16 at 15:56; Status DC Miscellaneous Information SPECIFIC LAB TO BE FERNY... ONCE ONCE XX Last administered on 06/16/16at 11:45; Start 06/16/16 at 11:45; Stop 06/16/16 at 11 :46; Status DC Sodium Chloride (NS 1000 ml Inj) 1,000 ml @ 999 mls/hr BOLUS ONCE IV Last administered on 06/15/16at 09:14; Start 06/15/16 at 09:00; Stop 06/15/16 at 10 :00; Status DC Water 200 ml 200 ml Q6HR G-TUBE Last administered on 06/28/16at 06:23; Start 06/16/16 at 12:00; Stop 06/28/16 at 11:17; Status DC Vancomycin HCl/ Sodium Chloride (Vancomycin Inj/ NS 250 ml Inj) 250 ml @ 250 mls/hr Q18H IV Last administered on 06/18/16at 00:23; Start 06/17/16 at 06:00 ; Stop 06/18/16 at 17:56; Status DC Miscellaneous Information SPECIFIC LAB TO BE DRAWN:VANCOMYCIN DATE TO BE DR... ONCE ONCE XX ; Start 06/19/16 at 11:45; Stop 06/19/16 at 11:45; Status DC IV Flush (NS Flush) See Protocol DAILY IVF Last administered on 07/17/16 09:00 ; Start 06/23/16 at 09:00 IV Flush (NS Flush) See Protocol UNSCH PRN IVF SEE PROTOCOL TABLE; Start 06/22 at 12:30 IV Flush See Protocol UNSCH PRN IVF SEE PROTOCOL TABLE; Start 06/22/16 at 12: 30 Fluconazole/ Sodium Chloride 400 ml @ 200 mls/hr Q24H IV Last administered on 07/17/16 13:56; Start 06/22/16 at 14:00 Fluconazole/ Sodium Chloride (Diflucan 400 Mg Premix Bag) 400 ml @ 200 mls/hr Q24H IV Last administered on 07/17/16 16:17; Start 06/23/16 at 16:00 Thiamine HCl (Vitamin B1) 100 mg DAILY PO Last administered on 07/17/16 09:40 ; Start 06/28/16 at 09:00 Water 50 ml 50 ml Q6HR PEG Last administered on 07/17/16 18:00; Start at 12:00 Sodium Chloride (NS 1000 ml Inj) 1,000 ml @ 84 mls/hr [id number] IV Last administered on 07/01/16at 17:30; Start 07/01/16 at 17:30; Stop 07/02/16 at 05 :24; Status DC Diphenhydramine HCl (Benadryl Inj) 25 mg Q6HR PRN IV pruritis Last administered on 07/03/16at 14:53; Start 07/03/16 at 12:00 Polyethylene Glycol (Miralax) 17 gm Q12H PO Last administered on 07/17/16 21: 42; Start 07/03/16 at 20:00 Metoclopramide HCl (Reglan Inj) 5 mg Q8HR IV PUSH Last administered on 05:05; Start 07/03/16 at 14:00; Stop 07/08/16 at 13:59; Status DC Metoprolol Tartrate (Lopressor) 25 mg Q12HR PO Last administered on 07/17/16 21:42; Start 07/07/16 at 09:00 Hydralazine HCl (Apresoline Inj) 10 mg Q1HR PRN IV PUSH SBP>160, DBP>90; Start 07/07/16 at 09:00 Labetalol HCl 10 mg 10 mg Q1HR PRN IV PUSH SBP>160, DBP>90, HR>65; Start at 09:00 Sodium Chloride (NS 500 ml Inj) 500 ml @ 500 mls/hr BOLUS ONCE IV Last administered on 07/09/16 12:45; Start 07/09/16 at 12:45; Stop 07/09/16 at 13:44; Status DC Metoclopramide HCl (Reglan Inj) 5 mg Q8HR IV PUSH Last administered on 10:29; Start 07/10/16 at 09:45; Stop 07/10/16 at 10:44; Status DC Metoclopramide HCl 5 mg 5 mg Q8H IV PUSH Last administered on 07/18/16 02:15; Start 07/10/16 at 18:00 Sodium Chloride 500 ml @ 500 mls/hr BOLUS ONCE IV Last administered on 13:45; Start 07/10/16 at 13:45; Stop 07/10/16 at 14:44; Status DC Sodium Chloride (NS 500 ml Inj) 500 ml @ 0 mls/hr BOLUS IV ; Start 07/10/16 at 14 :00 Potassium Chloride (KCl 40 Meq/30 ml Liq) 40 meq ONCE ONCE NG ; Start 07/11/16 at 14:15; Stop 07/11/16 at 14:16; Status DC Line: PICC Side: Right Location: Antecubital A/P Assessment and Plan A/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 - status post AVM embolization at [facility] followed by suboccipital craniotomy for hematoma evacuation and AVM resection - Keppra 500 mg twice a day for seizure prophylaxis - Strict BP control -neurosurgery signed off -continue rehab efforts CSF leak - repaired - no need for [employer]ST[employer]ER shunt at this time per NSGY - Continue Seroquel Hypertension - Metoprolol 25 mg every 12 hours - continue Telemetry Acute protein calorie malnutritionmild - Continue Jevity 1.5 goal 50 cc an hour - mechanical soft diet - advance to regular as tolerated - Colace Senokot for bowel regimen has been held due to multiple bowel movements - Pepcid for GI prophylaxis - Continue Reglan 5 mg IV every 8 hours for prokinetic agent Normocytic anemia - H&H stable - Does not meet transfusion triggers at this time. Hermila Ventriculitis - post intraventricular Amphotericin B administration. Last dose 06/30 - right ventriculostomy 06/03, replaced 06/12 - Continue systemic Diflucan 800 mg IV daily - management per ID - no growth on a sample 06/23 - repeat CSF on Thursday06/30/2016 and 07/07/2016 no growth Enterococcus Bacteremia - Completed course of Vanc IV 06/24 GI Prophylaxis Pepcid 20 mg twice a day: DVT Prophylaxis - SCDs - Heparin subQ Kayla Forman MD Jul 18, 2016 08:54
[2016-07-18] MEDS: POLYETHYLENE GLYCOL 17 GM PKG PO SCH ×2 (09:31→23:32)
[2016-07-18] MEDS: SODIUM CHLORIDE 0.9% FLUSH 5 ML FLUSH IV FLUSH SCH ×2 (09:33→21:00)
[2016-07-18] MEDS: HEPARIN SODIUM - SQ 10,000 UNITS/ML VIAL SQ SCH ×2 (09:35→23:26)
[2016-07-18] MEDS: FAMOTIDINE 20 MG TAB NG SCH ×2 (09:35→23:27)
[2016-07-18] MEDS: levETIRAcetam 500 MG TAB PO SCH ×2 (09:36→23:27)
[2016-07-18] MEDS: METOPROLOL TARTRATE 25 MG TAB PO SCH ×2 (09:36→23:27)
[2016-07-18] MEDS: QUEtiapine FUMARATE 25 MG TAB PO SCH ×2 (09:36→23:27)
[2016-07-18] MEDS: THIAMINE HCL 100 MG TAB PO SCH (09:37)
--- NOTE | 2016-07-18 10:33 | HHI.IDPN ---
Subjective Subjective Remarks ID COVERAGE Notes reviewed Stable Mental status, has some very mild confusion NS has signed off, no need for DINING [employer]USSER shunt at this time No SCHULTZ Tolerating high dose Diflucan LFT ok Has PICC 06/22 Last (+) CSF C/S from 06/12 CSF C/S 06/16, 06/23 and 06/30 and 1/2 negative EVD got pulled Jul 08 is a 55 y/o CM with AVM S/P coiling. On Rx for Hermila ventriculitis Antibiotics Diflucan IV Lines PICC 06/22 Past Medical History AVM s/p coil Allergies: Coded Allergies: Oxycodone (Unverified Allergy, Intermediate, ITCHY, 01/16/16) Objective . Vital Signs Date Time Temp Pulse Resp B/P Pulse Ox O2 Delivery O2 Flow Rate FiO2 07/18/16 08:00 98.1 64 16 142/93 98 07/18/16 03:41 98.4 60 20 124/75 98 07/18/16 00:00 97.8 75 16 114/71 98 07/17/16 20:00 98.3 69 18 140/82 98 07/17/16 16:00 96.9 72 20 124/66 98 07/17/16 12:00 98.1 74 18 127/63 97 07/17/16 07/17/16 07/18/16 15:00 23:00 07:00 Intake Total 1200 ml Output Total 600 ml 600 ml Balance -600 ml 600 ml IV Total 0 ml Tube Feeding 600 ml Other 600 ml Output Urine Total 600 ml 600 ml Tube Feeding Residual Discard 0 ml 0 ml # Bowel Movements 2 Imaging Lower Extremity Ultrasound 07/05/16 0000 Signed Impressions: Service Date/Time: Tuesday, July 05, 2016 11:28 - CONCLUSION: Normal examination. Jese Malik MD Head CT 07/04/16 0600 Signed Impressions: Service Date/Time: Monday, July 04, 2016 04:27 - CONCLUSION: 1. Postoperative changes in the left cerebellum with multiple coils again seen. 2. The fluid collection in the postoperative bed has increased in size now measuring 7.0 x 4.2 cm. 3. The ventricles are mildly dilated when compared to previous study. 4. Right frontal ventriculostomy catheter is unchanged in position. Altaf Alfaro MD Abdomen X-Ray 07/01/16 0000 Signed Impressions: Service Date/Time: Friday, July 01, 2016 17:33 - CONCLUSION: Benign abdomen. Probable PEG tube in place Don López MD Chest X-Ray 06/22/16 0000 Signed Impressions: Service Date/Time: Wednesday, June 22, 2016 12:54 - CONCLUSION: No acute cardiopulmonary disease identified. Tommy Ramirez MD ADDENDUM: There is a right arm PICC appropriately positioned, tip at the atriocaval junction. Brian Hu MD Head CT 06/10/16 0600 Signed Impressions: Service Date/Time: Friday, June 10, 2016 05:01 - CONCLUSION: 1. 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 Locules of air within the fluid are decreasing since June 08. Right frontal ventriculostomy tube remains present with stable ventricular size. No hydrocephalus. Kirk Cortes MD Physical Exam GENERAL: Awake and alert, NAD SKIN: No rashes. HEENT: pink conjunctiva, no icterus. Moist mucosa. NECK: Supple, nontender, neck not very supple. CARDIOVASCULAR: Regular rate and rhythm. No murmur appreciated. RESPIRATORY: Clear to auscultation. Breath sounds equal bilaterally. No wheezes , rales, or rhonchi. GASTROINTESTINAL: Abdomen soft, non-tender, nondistended. MUSCULOSKELETAL: Extremities without clubbing, cyanosis, or edema. NEUROLOGICAL: Awake, alert, esponding LINE: IV line sites with no e/o infection. Assessment & Plan Remarks Hermila albicans ventriculitis. - CSF counts better - all fup C/S negative - last (+) C/S 06/12 E.faecalis bacteremia: No central lines or PIVs. Treated. Repeat BCX negative. SIRS/Sepsis now controlled since Vanco IV started. AVM was transferred to [facility] for further treatment of the AVM by embolization followed by suboccipital craniotomy for hematoma evacuation and AVM resection. CSF leak and hydrocephalus s/p Rt sima hole and Ventriculostomy catheter placement 06/03/2016. Recs: Continue Diflucan, change to po Monitor progress Follow LFT Matilde Coulter MD Jul 18, 2016 10:33
[2016-07-18] MEDS ORDERED: FLUCONAZOLE 200 MG TAB PO SCH (11:00)
[2016-07-18] MEDS: FLUCONAZOLE 200 MG TAB PO SCH ×2 (13:00→18:16)
[2016-07-19] VITALS: BP 160/91; PULSE 73; RESP 19; TEMP 96; O2SAT 97
[2016-07-19] MEDS: METOCLOPRAMIDE HCL 10 MG/2 ML VIAL IV PUSH SCH ×3 (02:20→18:04)
[2016-07-19] MEDS: CHLORHEXIDINE GLUCONATE 2 % 1 PACK (2 CLOTHS) TOP SCH (04:00)
[2016-07-19] MEDS: FREE WATER PEG SCH ×5 (06:00→23:32)
[2016-07-19 06:05] VITALS: BP 125/77; PULSE 68; RESP 20; TEMP 95.6; O2SAT 98
[2016-07-19 08:00] VITALS: BP 131/90; PULSE 75; RESP 18; TEMP 97.3; O2SAT 99
[2016-07-19] MEDS: POLYETHYLENE GLYCOL 17 GM PKG PO SCH ×2 (08:33→20:00)
[2016-07-19] MEDS: levETIRAcetam 500 MG TAB PO SCH ×2 (08:35→20:44)
[2016-07-19] MEDS: FAMOTIDINE 20 MG TAB NG SCH ×2 (08:35→20:44)
[2016-07-19] MEDS: QUEtiapine FUMARATE 25 MG TAB PO SCH ×2 (08:35→20:44)
[2016-07-19] MEDS: METOPROLOL TARTRATE 25 MG TAB PO SCH ×2 (08:35→20:44)
[2016-07-19] MEDS: FLUCONAZOLE 200 MG TAB PO SCH (08:35)
[2016-07-19] MEDS: HEPARIN SODIUM - SQ 10,000 UNITS/ML VIAL SQ SCH ×2 (08:36→20:44)
[2016-07-19] MEDS: THIAMINE HCL 100 MG TAB PO SCH (08:36)
[2016-07-19] MEDS: SODIUM CHLORIDE 0.9% FLUSH 5 ML FLUSH IV FLUSH SCH ×2 (08:47→20:54)
[2016-07-19] MEDS ORDERED: FLUCONAZOLE 200 MG TAB PO SCH (09:00)
--- NOTE | 2016-07-19 11:35 | HHI.PR ---
Subjective Remarks in no distress. noted that still on restraints. Objective Vitals Vital Signs Date Time Temp Pulse Resp B/P Pulse Ox O2 Delivery O2 Flow Rate FiO2 07/19/16 08:00 97.3 75 18 131/90 99 07/19/16 06:05 95.6 68 20 125/77 98 07/19/16 00:00 96.0 73 19 160/91 97 07/18/16 20:00 98.7 75 18 114/71 97 07/18/16 16:00 98.1 66 20 130/84 100 07/18/16 12:00 97.9 64 18 134/88 99 I/O 07/18/16 07/18/16 07/18/16 07/19/16 07/19/16 07/19/16 07:00 15:00 23:00 07:00 15:00 23:00 Intake Total 1200 ml 530 ml 800 ml Output Total 600 ml 500 ml 200 ml 0 ml Balance 600 ml 530 ml 300 ml -200 ml 0 ml Intake Oral 480 ml IV Total 0 ml Tube Feeding 600 ml 550 ml Other 600 ml 50 ml 250 ml Output Urine Total 600 ml 500 ml 200 ml Tube Feeding Residual Discard 0 ml 0 ml 0 ml # Bowel Movements 1 0 Result Diagram: 07/16/16 0548 07/16/16 0548 Imaging Last Impressions Head CT 07/15/16 0600 Signed Impressions: Service Date/Time: Friday, July 15, 2016 05:43 - CONCLUSION: 1. Fluid collection in the posterior soft tissues has significantly decreased in prominence. 2. Post surgical changes in the left cerebellum with previous occipital craniectomy. Altaf Alfaro MD Abdomen X-Ray 07/10/16 0937 Signed Impressions: Service Date/Time: July 09:57 - CONCLUSION: Stable nonspecific benign abdomen appearance Brian Vasquez MD Lower Extremity Ultrasound 07/05/16 0000 Signed Impressions: Service Date/Time: Tuesday, July 05, 2016 11:28 - CONCLUSION: Normal examination. Jese Malik MD Chest X-Ray 06/22/16 0000 Signed Impressions: Service Date/Time: Wednesday, June 22, 2016 12:54 - CONCLUSION: No acute cardiopulmonary disease identified. Tommy Ramirez MD ADDENDUM: There is a right arm PICC appropriately positioned, tip at the atriocaval junction. Brian Hu MD Objective Remarks GENERAL: This is a well-nourished, well-developed patient, in no apparent distress. CARDIOVASCULAR: Regular rate and regular rhythm without murmurs, gallops, or rubs. RESPIRATORY: Clear to auscultation. Breath sounds equal bilaterally. No wheezes , rales, or rhonchi. GASTROINTESTINAL: Abdomen soft, non-tender, nondistended. Normal, active bowel sounds MUSCULOSKELETAL: Extremities without clubbing, cyanosis, or edema. NEURO: awake and alert- oriented to person and partly to place Medications and IVs Current Medications IV Flush (NS Flush) 2 ml UNSCH PRN FLUSH FLUSH AFTER USING IV ACCESS; Start at 15:00; Stop 06/03/16 at 10:23; Status DC IV Flush (NS Flush) 2 ml BID FLUSH Last administered on 06/02/16at 21:00; Start 05/29/16 at 21:00; Stop 06/03/16 at 10:23; Status DC Ondansetron HCl (Zofran Inj) 4 mg Q6H PRN IVP NAUSEA OR VOMITING; Start at 15:00; Stop 06/03/16 at 14:04; Status DC Naloxone HCl 0.4 mg 0.4 mg UNSCH PRN IV SEE LABEL COMMENTS; Start 05/29/16 at 15:00 Ceftriaxone Sodium/Sodium Chloride (Rocephin Inj/NS Inj) 100 ml @ 200 mls/hr Q12H IV Last administered on 06/02/16at 04:47; Start 05/29/16 at 16:00; Stop 06/02/16 at 10:27; Status DC Acetaminophen/ Butalbital/ Caffeine (Fioricet 325-50-40) 1 tab Q6H PRN PO PAIN GREATER THAN 5 or headach Last administered on 07/16/16 06:07; Start 05/29/16 at 15:00 Heparin Sodium (Porcine) (Heparin Inj) 5,000 units Q12HR SQ Last administered on 07/19/16 08:36; Start 05/29/16 at 21:00 Levetriacetam (Keppra) 500 mg Q12HR PO Last administered on 07/19/16 08:35; Start 05/29/16 at 21:00 Metoprolol Tartrate (Lopressor) 25 mg Q12HR PO Last administered on 05/31/16at 08:33; Start 05/29/16 at 21:00; Stop 06/02/16 at 10:29; Status DC Quetiapine Fumarate 25 mg 25 mg BID PO Last administered on 06/02/16at 10:37; Start 05/29/16 at 21:00; Stop 06/02/16 at 10:53; Status DC Sodium Chloride (NS 1000 ml Inj) 1,000 ml @ 100 mls/hr Q10H IV Last administered on 06/01/16at 14:27; Start 06/01/16 at 14:30; Stop 06/02/16 at 00 :29; Status DC Morphine Sulfate (Morphine Inj) 2 mg Q3H PRN IV PUSH BREAKTHROUGH PAIN Last administered on 07/13/16t 14:15; Start 06/02/16 at 10:30 Metoprolol Tartrate (Lopressor) 50 mg Q12HR PO Last administered on 06/03/16at 20:29; Start 06/02/16 at 21:00; Stop 06/05/16 at 09:12; Status DC Quetiapine Fumarate (SEROquel) 50 mg BID PO Last administered on 06/05/16at 20: 36; Start 06/02/16 at 21:00; Stop 06/06/16 at 07:57; Status DC Diphenhydramine HCl (Benadryl 2% Cream) 1 applic TID PRN TOPICAL ITCHING; Start 06/02/16 at 11:15 Iohexol 95 ml 95 ml STK-MED ONCE IV ; Start 06/02/16 at 20:32; Stop 06/02/16 at 20:33; Status DC Sodium Chloride (NS 1000 ml Inj) 1,000 ml @ 84 mls/hr [id number] IV Last administered on 06/03/16at 21:40; Start 06/03/16 at 09:45; Stop 06/04/16 at 07 :32; Status DC IV Flush (NS Flush) 2 ml UNSCH PRN IV FLUSH FLUSH AFTER USING IV ACCESS Last administered on 07/17/16 02:44; Start 06/03/16 at 09:45 IV Flush (NS Flush) 2 ml BID IV FLUSH Last administered on 07/19/16 08:47; Start 06/03/16 at 21:00 Acetaminophen (Tylenol) 650 mg Q6H PRN PO FEVER >100F Last administered on at 09:11; Start 06/03/16 at 09:45 Ondansetron HCl (Zofran Inj) 4 mg Q6H PRN IV NAUSEA OR VOMITING Last administered on 07/08/16 08:54; Start 06/03/16 at 09:45 Docusate Sodium (Colace) 100 mg BID PO Last administered on 07/04/16at 08:16; Start 06/03/16 at 21:00; Status Hold Sennosides (Senokot) 17.2 mg BID PO Last administered on 07/04/16at 20:41; Start 06/03/16 at 09:45; Status Hold Albuterol/ Ipratropium (Duoneb Neb) 1 ampule Q2HR NEB PRN INH WHEEZING; Start 06/03/16 at 09:45 Miscellaneous Information 1 [id number] XX ; Start 06/03/16 at 09:45 Chlorhexidine Gluconate (Chlorhexidine 2% Cloth) Taper DAILY@04 TOP Last administered on 07/14/16 04:00; Start 06/04/16 at 04:00; Stop 05/31/17 at 03: 59 Chlorhexidine Gluconate 3 pack 3 pack UNSCH PRN TOP HYGIENIC CARE; Start 06/03 at 09:45 Thiamine HCl/ Sodium Chloride (Thiamine Inj/NS Inj) 101 ml @ 101 mls/hr DAILY IV Last administered on 06/27/16at 08:19; Start 06/04/16 at 09:00; Stop 06/27 at 09:05; Status DC Docusate Sodium (Colace) 100 mg BID PO ; Start 06/03/16 at 21:00; Status UNV Polyethylene Glycol (Miralax) 17 gm DAILY PO Last administered on 06/30/16at 09 :11; Start 06/04/16 at 09:00; Stop 07/03/16 at 09:09; Status DC Microfibriller Collagen Hemostat (Avitene Bandage) 1 bandage STK-MED ONCE .ROUTE ; Start 06/03/16 at 11:17; Stop 06/03/16 at 11:18; Status DC Thrombin (Thrombin Top Soln) 10,000 units STK-MED ONCE .ROUTE ; Start 06/03/16 at 11:17; Stop 06/03/16 at 11:18; Status DC Gelatin (Gelfoam 100 Top) 1 foam STK-MED ONCE .ROUTE ; Start 06/03/16 at 11:18 ; Stop 06/03/16 at 11:19; Status DC Cefazolin Sodium (Ancef Inj) 1,000 mg STK-MED ONCE .ROUTE ; Start 06/03/16 at 11:18; Stop 06/03/16 at 11:19; Status DC Gentamicin Sulfate (Gentamicin Inj) 240 mg STK-MED ONCE .ROUTE ; Start at 11:18; Stop 06/03/16 at 11:19; Status DC Lidocaine/ Epinephrine (Xylocaine-Epi 1%-1:100,000 Inj) 20 ml STK-MED ONCE .ROUTE ; Start 06/03/16 at 11:18; Stop 06/03/16 at 11:19; Status DC Vancomycin HCl 1000 mg 1,000 mg STK-MED ONCE .ROUTE ; Start 06/03/16 at 11:21; Stop 06/03/16 at 11:22; Status DC Cefazolin Sodium/ Dextrose (Ancef 2 Gm Premix) 50 ml @ As Directed STK-MED ONCE .ROUTE ; Start 06/03/16 at 11:22; Stop 06/03/16 at 11:23; Status DC Levetriacetam (Keppra Inj) 500 mg STK-MED ONCE IV ; Start 06/03/16 at 11:22; Stop 06/03/16 at 11:23; Status DC Bacitracin 15 applic 15 applic STK-MED ONCE .ROUTE ; Start 06/03/16 at 11:22; Stop 06/03/16 at 11:23; Status DC Sodium Chloride (NS 250 ml Inj) 250 ml @ As Directed STK-MED ONCE .ROUTE ; Start 06/03/16 at 11:22; Stop 06/03/16 at 11:23; Status DC Propofol 100 mg 100 mg ONCE ONCE IV ; Start 06/03/16 at 13:33; Stop 06/03/16 at 15:16; Status DC Propofol 50 ml @ As Directed STK-MED ONCE .ROUTE ; Start 06/03/16 at 13:32; Stop 06/03/16 at 13:33; Status DC Sodium Chloride 1,000 ml @ 100 mls/hr Q10H IV Last administered on 06/05/16at 22:23; Start 06/03/16 at 21:16; Status Hold Cefazolin Sodium/ Dextrose 50 ml @ 150 mls/hr TOLL TEST WORKER PRN IV GIVE 60 MIN PRIOR TO INSICION; Start 06/03/16 at 21:30; Stop 06/05/16 at 21:29; Status DC Vancomycin HCl/ Sodium Chloride (Vancomycin Inj/ NS 250 ml Inj) 250 ml @ 250 mls/hr TOLL TEST WORKER PRN IV GIVE 60 MIN PRIUOR TO INCISION; Start 06/03/16 at 21:30 ; Stop 06/05/16 at 21:29; Status DC Chlorhexidine Gluconate (Hibiclens 4% Top Soln) 1 applic HS TOP ; Start at 21:00; Stop 06/05/16 at 21:01; Status DC Water (Free Water) VOLUME: 100 ML Q6HR G-TUBE Last administered on 06/16/16at 06:12; Start 06/04/16 at 12:00; Stop 06/16/16 at 07:43; Status DC Famotidine (Pepcid) 20 mg BID NG Last administered on 07/19/16 08:35; Start 06/04/16 at 09:00 Metoprolol Tartrate (Lopressor) 12.5 mg Q12HR PO Last administered on 07/07/16 08:49; Start 06/05/16 at 21:00; Stop 07/07/16 at 08:53; Status DC Quetiapine Fumarate (SEROquel) 25 mg BID PO Last administered on 07/19/16 08: 35; Start 06/06/16 at 09:00 Loperamide HCl 2 mg 2 mg UNSCH PRN TUBE DIARRHEA Last administered on at 14:57; Start 06/06/16 at 16:15 Pharmacy Profile Note 0 ml @ 0 mls/hr UNSCH OTHER ; Start 06/10/16 at 10:15; Stop 06/18/16 at 17:56; Status DC Vancomycin HCl/ Sodium Chloride (Vancomycin Inj/ NS 250 ml Inj) 250 ml @ 250 mls/hr Q12H IV Last administered on 06/12/16at 02:06; Start 06/10/16 at 12:00; Stop 06/12/16 at 09:26; Status DC Miscellaneous Information SPECIFIC LAB TO BE FERNY... ONCE ONCE XX Last administered on 06/12/16at 01:28; Start 06/11/16 at 23:45; Stop 06/11/16 at 23:46 ; Status DC Amphotericin B Liposome/Dextrose (Ambisome Inj/ D5W Inj) 200 ml @ 125 mls/hr Q24H IV Last administered on 06/11/16at 14:51; Start 06/11/16 at 15:00; Stop at 20:26; Status DC Amphotericin B (Amphotericin B Conv Inj) 1 mg Q24H OTHER Last administered on 06/12/16at 11:00; Start 06/11/16 at 18:00; Stop 06/12/16 at 19:27; Status DC Diphenhydramine HCl (Benadryl Inj) 25 mg Q24H PRN IV Last administered on at 16:23; Start 06/11/16 at 17:00; Stop 07/03/16 at 09:09; Status DC Hydrocortisone Sodium Succinate 25 mg 25 mg Q24H PRN IV PRE-MED PRIOR TO AMPHOTERCIN B Last administered on 06/30/16at 09:54; Start 06/11/16 at 17:00 Amphotericin B Liposome 280 mg/ Dextrose 280 ml @ 125 mls/hr Q24H IV Last administered on 06/21/16at 14:21; Start 06/12/16 at 15:00; Stop 06/22/16 at 13: 48; Status DC Potassium Chloride 100 ml @ 50 mls/hr Q2H PRN IV For Potassium 2.8 - 3.2 mEq/ L Last administered on 07/11/16t 09:24; Start 06/12/16 at 07:15; Stop 07/16/16 at 08:31; Status DC Potassium Chloride (KCl 20 Meq Premix Inj) 100 ml @ 50 mls/hr Q2H PRN IV For Potassium 2.8 - 3.2 mEq/L Last administered on 06/26/16at 11:32; Start 06/12/16 at 07:15; Stop 07/16/16 at 08:31; Status DC Potassium Chloride 40 meq 40 meq UNSCH PRN PO/TUBE For Potassium 3.3 - 3.5 mEq/ L Last administered on 06/28/16at 06:33; Start 06/12/16 at 07:15; Stop 07/16/16 at 08:31; Status DC Potassium Chloride 100 ml @ 25 mls/hr UNSCH PRN IV For Potassium 3.3 - 3.5 mEq /L; Start 06/12/16 at 07:15; Stop 07/16/16 at 08:31; Status DC Potassium Chloride 100 ml @ 50 mls/hr Q2H PRN IV For Potassium 3.3 - 3.5 mEq/ L Last administered on 06/26/16at 09:24; Start 06/12/16 at 07:15; Stop 07/16/16 at 08:31; Status DC Magnesium Sulfate/ Sodium Chloride (Magnesium Sulfate Inj/NS Inj) 100 ml @ 50 mls/hr UNSCH PRN IV For Magnesium 0.9 - 1.1 mg/dL; Start 06/12/16 at 07:15; Stop 07/16/16 at 08:31; Status DC Magnesium Oxide 800 mg 800 mg UNSCH PRN PO For Magnesium 1.2 - 1.6 mg/dL; Start 06/12/16 at 07:15; Stop 07/16/16 at 08:31; Status DC Magnesium Sulfate/ Sodium Chloride (Magnesium Sulfate Inj/NS Inj) 100 ml @ 50 mls/hr UNSCH PRN IV For Magnesium 1.2 - 1.6 mg/dL; Start 06/12/16 at 07:15; Stop 07/16/16 at 08:31; Status DC Potassium Phosphate 2000 mg 2,000 mg Q4H PRN PO For Phosphorus < 2.5 mg/dL; Start 06/12/16 at 07:15; Stop 07/16/16 at 08:32; Status DC Sodium Phosphate/ Sodium Chloride (Sodium Phosphate Inj/NS 250 ml Inj) 250 ml @ 42 mls/hr UNSCH PRN IV For Phosphorus < 2.5 mg/dL; Start 06/12/16 at 07:15 Potassium Chloride (KCl 40 Meq/30 ml Liq) 40 meq UNSCH PRN PO/TUBE SEE LABEL COMMENTS; Start 06/12/16 at 07:15; Stop 07/16/16 at 08:32; Status DC Potassium Phosphate 2000 mg 2,000 mg UNSCH PRN PO/TUBE SEE LABEL COMMENTS; Start 06/12/16 at 07:15; Stop 07/16/16 at 08:32; Status DC Potassium Phosphate/Sodium Chloride (Potassium Phosphate Inj/NS 250 ml Inj) 260 ml @ 42 mls/hr UNSCH PRN IV SEE LABEL COMMENTS; Start 06/12/16 at 07:15; Stop 07/16/16 at 08:32; Status DC Midazolam HCl (Versed Inj) 10 mg ONCE ONCE IV Last administered on 06/12/16at 10:30; Start 06/12/16 at 09:30; Stop 06/12/16 at 09:31; Status DC Fentanyl Citrate 100 mcg 100 mcg ONCE ONCE IM Last administered on 06/12/16at 10:00; Start 06/12/16 at 09:30; Stop 06/12/16 at 09:31; Status DC Vancomycin HCl/ Sodium Chloride (Vancomycin Inj/ NS 250 ml Inj) 262.5 ml @ 250 mls/hr Q12H IV Last administered on 06/14/16at 12:38; Start 06/12/16 at 12:00; Stop 06/14/16 at 13:50; Status DC Miscellaneous Information SPECIFIC LAB TO BE DRAWN:VANCOMYCIN TROUGH DATE TO... ONCE ONCE XX Last administered on 06/14/16at 11:45; Start 06/14/16 at 11:45; Stop 06/14/16 at 11:46; Status DC Amphotericin B 1 mg 1 mg Q24H OTHER Last administered on 06/29/16at 10:15; Start 06/13/16 at 09:00; Stop 06/30/16 at 09:55; Status DC Vancomycin HCl/ Sodium Chloride (Vancomycin Inj/ NS 250 ml Inj) 250 ml @ 250 mls/hr Q12H IV Last administered on 06/16/16at 12:47; Start 06/15/16 at 00:00 ; Stop 06/16/16 at 15:56; Status DC Miscellaneous Information SPECIFIC LAB TO BE FERNY... ONCE ONCE XX Last administered on 06/16/16at 11:45; Start 06/16/16 at 11:45; Stop 06/16/16 at 11 :46; Status DC Sodium Chloride (NS 1000 ml Inj) 1,000 ml @ 999 mls/hr BOLUS ONCE IV Last administered on 06/15/16at 09:14; Start 06/15/16 at 09:00; Stop 06/15/16 at 10 :00; Status DC Water 200 ml 200 ml Q6HR G-TUBE Last administered on 06/28/16at 06:23; Start 06/16/16 at 12:00; Stop 06/28/16 at 11:17; Status DC Vancomycin HCl/ Sodium Chloride (Vancomycin Inj/ NS 250 ml Inj) 250 ml @ 250 mls/hr Q18H IV Last administered on 06/18/16at 00:23; Start 06/17/16 at 06:00 ; Stop 06/18/16 at 17:56; Status DC Miscellaneous Information SPECIFIC LAB TO BE DRAWN:VANCOMYCIN DATE TO BE DR... ONCE ONCE XX ; Start 06/19/16 at 11:45; Stop 06/19/16 at 11:45; Status DC IV Flush (NS Flush) See Protocol DAILY IVF Last administered on 07/19/16 08:47 ; Start 06/23/16 at 09:00 IV Flush (NS Flush) See Protocol UNSCH PRN IVF SEE PROTOCOL TABLE; Start 06/22 at 12:30 IV Flush See Protocol UNSCH PRN IVF SEE PROTOCOL TABLE; Start 06/22/16 at 12: 30 Fluconazole/ Sodium Chloride 400 ml @ 200 mls/hr Q24H IV Last administered on 07/17/16 13:56; Start 06/22/16 at 14:00; Stop 07/18/16 at 10:36; Status DC Fluconazole/ Sodium Chloride (Diflucan 400 Mg Premix Bag) 400 ml @ 200 mls/hr Q24H IV Last administered on 07/17/16 16:17; Start 06/23/16 at 16:00; Stop at 10:36; Status DC Thiamine HCl (Vitamin B1) 100 mg DAILY PO Last administered on 07/19/16 08:36 ; Start 06/28/16 at 09:00 Water 50 ml 50 ml Q6HR PEG Last administered on 07/19/16 06:00; Start at 12:00 Sodium Chloride (NS 1000 ml Inj) 1,000 ml @ 84 mls/hr [id number] IV Last administered on 07/01/16at 17:30; Start 07/01/16 at 17:30; Stop 07/02/16 at 05 :24; Status DC Diphenhydramine HCl (Benadryl Inj) 25 mg Q6HR PRN IV pruritis Last administered on 07/03/16at 14:53; Start 07/03/16 at 12:00 Polyethylene Glycol (Miralax) 17 gm Q12H PO Last administered on 07/19/16 08: 33; Start 07/03/16 at 20:00 Metoclopramide HCl (Reglan Inj) 5 mg Q8HR IV PUSH Last administered on 05:05; Start 07/03/16 at 14:00; Stop 07/08/16 at 13:59; Status DC Metoprolol Tartrate (Lopressor) 25 mg Q12HR PO Last administered on 07/19/16 08:35; Start 07/07/16 at 09:00 Hydralazine HCl (Apresoline Inj) 10 mg Q1HR PRN IV PUSH SBP>160, DBP>90; Start 07/07/16 at 09:00 Labetalol HCl 10 mg 10 mg Q1HR PRN IV PUSH SBP>160, DBP>90, HR>65; Start at 09:00 Sodium Chloride (NS 500 ml Inj) 500 ml @ 500 mls/hr BOLUS ONCE IV Last administered on 07/09/16 12:45; Start 07/09/16 at 12:45; Stop 07/09/16 at 13:44; Status DC Metoclopramide HCl (Reglan Inj) 5 mg Q8HR IV PUSH Last administered on 10:29; Start 07/10/16 at 09:45; Stop 07/10/16 at 10:44; Status DC Metoclopramide HCl 5 mg 5 mg Q8H IV PUSH Last administered on 07/19/16 11:21; Start 07/10/16 at 18:00 Sodium Chloride 500 ml @ 500 mls/hr BOLUS ONCE IV Last administered on 13:45; Start 07/10/16 at 13:45; Stop 07/10/16 at 14:44; Status DC Sodium Chloride (NS 500 ml Inj) 500 ml @ 0 mls/hr BOLUS IV ; Start 07/10/16 at 14 :00 Potassium Chloride (KCl 40 Meq/30 ml Liq) 40 meq ONCE ONCE NG ; Start 07/11/16 at 14:15; Stop 07/11/16 at 14:16; Status DC Fluconazole (Diflucan) 400 mg DAILY PO ; Start 07/18/16 at 11:00; Stop 07/18/16 at 11:14; Status DC Fluconazole (Diflucan) 800 mg DAILY PO ; Start 07/19/16 at 09:00; Stop 07/19/16 at 09:00; Status DC Fluconazole (Diflucan) 800 mg DAILY PO Last administered on 07/19/16t 08:35; Start 07/18/16 at 13:00 Line: PICC Side: Right Location: Antecubital A/P Assessment and Plan A/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 - status post AVM embolization at [facility] followed by suboccipital craniotomy for hematoma evacuation and AVM resection - Keppra 500 mg twice a day for seizure prophylaxis - Strict BP control -neurosurgery signed off -continue rehab efforts CSF leak - repaired - 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 Hermila Ventriculitis - post intraventricular Amphotericin B administration. Last dose 06/30 - right ventriculostomy 06/03, replaced 06/12 - switched to po diflucan - management per ID - no growth on a sample 06/23 - repeat CSF on Thursday06/30/2016 and 07/07/2016 no growth Enterococcus Bacteremia - Completed course of Vanc IV 06/24 GI Prophylaxis Pepcid 20 mg twice a day: DVT Prophylaxis - SCDs - Heparin subQ Discharge Planning needs placement. Kayla Forman MD Jul 19, 2016 11:35
[2016-07-19 12:00] VITALS: BP 131/79; PULSE 66; RESP 18; TEMP 97; O2SAT 99
[2016-07-19 16:00] VITALS: BP 157/97; PULSE 68; RESP 18; TEMP 96.6; O2SAT 98
[2016-07-19 21:52] VITALS: BP 148/92; PULSE 75; RESP 18; TEMP 97.9; O2SAT 99
[2016-07-20] MEDS: METOCLOPRAMIDE HCL 10 MG/2 ML VIAL IV PUSH SCH ×3 (01:13→17:07)
[2016-07-20 02:22] VITALS: BP 152/98; PULSE 67; RESP 18; TEMP 97.6; O2SAT 100
[2016-07-20] MEDS: CHLORHEXIDINE GLUCONATE 2 % 1 PACK (2 CLOTHS) TOP SCH (03:07)
[2016-07-20 03:25] VITALS: BP 150/95; PULSE 65; RESP 18; TEMP 97.1; O2SAT 96
[2016-07-20] MEDS: FREE WATER PEG SCH ×3 (06:00→17:08)
[2016-07-20 08:00] VITALS: BP 139/91; PULSE 73; RESP 15; TEMP 96.6; O2SAT 98
[2016-07-20] MEDS: POLYETHYLENE GLYCOL 17 GM PKG PO SCH ×2 (08:56→20:00)
[2016-07-20] MEDS: FLUCONAZOLE 200 MG TAB PO SCH (09:32)
[2016-07-20] MEDS: SODIUM CHLORIDE 0.9% FLUSH 5 ML FLUSH IV FLUSH SCH ×2 (09:32→22:10)
[2016-07-20] MEDS: THIAMINE HCL 100 MG TAB PO SCH (09:32)
[2016-07-20] MEDS: FAMOTIDINE 20 MG TAB NG SCH ×2 (09:32→22:10)
[2016-07-20] MEDS: METOPROLOL TARTRATE 25 MG TAB PO SCH ×2 (09:32→22:11)
[2016-07-20] MEDS: levETIRAcetam 500 MG TAB PO SCH ×2 (09:32→22:10)
[2016-07-20] MEDS: QUEtiapine FUMARATE 25 MG TAB PO SCH ×2 (09:32→22:10)
[2016-07-20] MEDS: HEPARIN SODIUM - SQ 10,000 UNITS/ML VIAL SQ SCH ×2 (09:33→22:10)
[2016-07-20 12:00] VITALS: BP 134/92; PULSE 71; RESP 15; TEMP 96.8; O2SAT 98
--- NOTE | 2016-07-20 12:29 | HHI.PR ---
Subjective Remarks in no distress. has on and off mild headache. no fever. Objective Vitals Vital Signs Date Time Temp Pulse Resp B/P Pulse Ox O2 Delivery O2 Flow Rate FiO2 07/20/16 08:00 96.6 73 15 139/91 98 07/20/16 03:25 97.1 65 18 150/95 96 07/20/16 02:22 97.6 67 18 152/98 100 07/19/16 21:52 97.9 75 18 148/92 99 07/19/16 16:00 96.6 68 18 157/97 98 I/O 07/19/16 07/19/16 07/19/16 07/20/16 07/20/16 07/20/16 07:00 15:00 23:00 07:00 15:00 23:00 Intake Total 240 ml Output Total 200 ml 0 ml 650 ml 350 ml 350 ml Balance -200 ml 0 ml -650 ml -110 ml -350 ml Intake Oral 240 ml Output Urine Total 200 ml 650 ml 350 ml 350 ml Tube Feeding Residual Discard 0 ml 0 ml # Bowel Movements 0 2 2 Result Diagram: 07/16/16 0548 07/16/16 0548 Imaging Last Impressions Head CT 07/15/16 0600 Signed Impressions: Service Date/Time: Friday, July 15, 2016 05:43 - CONCLUSION: 1. Fluid collection in the posterior soft tissues has significantly decreased in prominence. 2. Post surgical changes in the left cerebellum with previous occipital craniectomy. Altfa Alfaro MD Abdomen X-Ray 07/10/16 0937 Signed Impressions: Service Date/Time: July 09:57 - CONCLUSION: Stable nonspecific benign abdomen appearance Brian Vasquez MD Lower Extremity Ultrasound 07/05/16 0000 Signed Impressions: Service Date/Time: Tuesday, July 05, 2016 11:28 - CONCLUSION: Normal examination. Jese Malik MD Chest X-Ray 06/22/16 0000 Signed Impressions: Service Date/Time: Wednesday, June 22, 2016 12:54 - CONCLUSION: No acute cardiopulmonary disease identified. Tommy Rmairez MD ADDENDUM: There is a right arm PICC appropriately positioned, tip at the atriocaval junction. Brian Hu MD Objective Remarks GENERAL: This is a well-nourished, well-developed patient, in no apparent distress. CARDIOVASCULAR: Regular rate and regular rhythm without murmurs, gallops, or rubs. RESPIRATORY: Clear to auscultation. Breath sounds equal bilaterally. No wheezes , rales, or rhonchi. GASTROINTESTINAL: Abdomen soft, non-tender, nondistended. Normal, active bowel sounds MUSCULOSKELETAL: Extremities without clubbing, cyanosis, or edema. NEURO: awake and alert- oriented to person and partly to place Procedures Right frontal Tommy hole with placement of a ventriculostomy catheter Medications and IVs Current Medications IV Flush (NS Flush) 2 ml UNSCH PRN FLUSH FLUSH AFTER USING IV ACCESS; Start at 15:00; Stop 06/03/16 at 10:23; Status DC IV Flush (NS Flush) 2 ml BID FLUSH Last administered on 06/02/16at 21:00; Start 05/29/16 at 21:00; Stop 06/03/16 at 10:23; Status DC Ondansetron HCl (Zofran Inj) 4 mg Q6H PRN IVP NAUSEA OR VOMITING; Start at 15:00; Stop 06/03/16 at 14:04; Status DC Naloxone HCl 0.4 mg 0.4 mg UNSCH PRN IV SEE LABEL COMMENTS; Start 05/29/16 at 15:00 Ceftriaxone Sodium/Sodium Chloride (Rocephin Inj/NS Inj) 100 ml @ 200 mls/hr Q12H IV Last administered on 06/02/16at 04:47; Start 05/29/16 at 16:00; Stop 06/02/16 at 10:27; Status DC Acetaminophen/ Butalbital/ Caffeine (Fioricet 325-50-40) 1 tab Q6H PRN PO PAIN GREATER THAN 5 or headach Last administered on 07/16/16 06:07; Start 05/29/16 at 15:00 Heparin Sodium (Porcine) (Heparin Inj) 5,000 units Q12HR SQ Last administered on 07/20/16 09:33; Start 05/29/16 at 21:00 Levetriacetam (Keppra) 500 mg Q12HR PO Last administered on 07/20/16 09:32; Start 05/29/16 at 21:00 Metoprolol Tartrate (Lopressor) 25 mg Q12HR PO Last administered on 05/31/16at 08:33; Start 05/29/16 at 21:00; Stop 06/02/16 at 10:29; Status DC Quetiapine Fumarate 25 mg 25 mg BID PO Last administered on 06/02/16at 10:37; Start 05/29/16 at 21:00; Stop 06/02/16 at 10:53; Status DC Sodium Chloride (NS 1000 ml Inj) 1,000 ml @ 100 mls/hr Q10H IV Last administered on 06/01/16at 14:27; Start 06/01/16 at 14:30; Stop 06/02/16 at 00 :29; Status DC Morphine Sulfate (Morphine Inj) 2 mg Q3H PRN IV PUSH BREAKTHROUGH PAIN Last administered on 07/13/16 14:15; Start 06/02/16 at 10:30 Metoprolol Tartrate (Lopressor) 50 mg Q12HR PO Last administered on 06/03/16at 20:29; Start 06/02/16 at 21:00; Stop 06/05/16 at 09:12; Status DC Quetiapine Fumarate (SEROquel) 50 mg BID PO Last administered on 06/05/16at 20: 36; Start 06/02/16 at 21:00; Stop 06/06/16 at 07:57; Status DC Diphenhydramine HCl (Benadryl 2% Cream) 1 applic TID PRN TOPICAL ITCHING; Start 06/02/16 at 11:15 Iohexol 95 ml 95 ml STK-MED ONCE IV ; Start 06/02/16 at 20:32; Stop 06/02/16 at 20:33; Status DC Sodium Chloride (NS 1000 ml Inj) 1,000 ml @ 84 mls/hr [id number] IV Last administered on 06/03/16at 21:40; Start 06/03/16 at 09:45; Stop 06/04/16 at 07 :32; Status DC IV Flush (NS Flush) 2 ml UNSCH PRN IV FLUSH FLUSH AFTER USING IV ACCESS Last administered on 07/17/16 02:44; Start 06/03/16 at 09:45 IV Flush (NS Flush) 2 ml BID IV FLUSH Last administered on 07/20/16 09:32; Start 06/03/16 at 21:00 Acetaminophen (Tylenol) 650 mg Q6H PRN PO FEVER >100F Last administered on at 09:11; Start 06/03/16 at 09:45 Ondansetron HCl (Zofran Inj) 4 mg Q6H PRN IV NAUSEA OR VOMITING Last administered on 07/08/16 08:54; Start 06/03/16 at 09:45 Docusate Sodium (Colace) 100 mg BID PO Last administered on 07/04/16at 08:16; Start 06/03/16 at 21:00; Status Hold Sennosides (Senokot) 17.2 mg BID PO Last administered on 07/04/16at 20:41; Start 06/03/16 at 09:45; Status Hold Albuterol/ Ipratropium (Duoneb Neb) 1 ampule Q2HR NEB PRN INH WHEEZING; Start 06/03/16 at 09:45 Miscellaneous Information 1 Q361D XX ; Start 06/03/16 at 09:45 Chlorhexidine Gluconate (Chlorhexidine 2% Cloth) Taper DAILY@04 TOP Last administered on 07/14/16 04:00; Start 06/04/16 at 04:00; Stop 05/31/17 at 03: 59 Chlorhexidine Gluconate 3 pack 3 pack UNSCH PRN TOP HYGIENIC CARE; Start 06/03 at 09:45 Thiamine HCl/ Sodium Chloride (Thiamine Inj/NS Inj) 101 ml @ 101 mls/hr DAILY IV Last administered on 06/27/16at 08:19; Start 06/04/16 at 09:00; Stop 06/27 at 09:05; Status DC Docusate Sodium (Colace) 100 mg BID PO ; Start 06/03/16 at 21:00; Status UNV Polyethylene Glycol (Miralax) 17 gm DAILY PO Last administered on 06/30/16at 09 :11; Start 06/04/16 at 09:00; Stop 07/03/16 at 09:09; Status DC Microfibriller Collagen Hemostat (Avitene Bandage) 1 bandage STK-MED ONCE .ROUTE ; Start 06/03/16 at 11:17; Stop 06/03/16 at 11:18; Status DC Thrombin (Thrombin Top Soln) 10,000 units STK-MED ONCE .ROUTE ; Start 06/03/16 at 11:17; Stop 06/03/16 at 11:18; Status DC Gelatin (Gelfoam 100 Top) 1 foam STK-MED ONCE .ROUTE ; Start 06/03/16 at 11:18 ; Stop 06/03/16 at 11:19; Status DC Cefazolin Sodium (Ancef Inj) 1,000 mg STK-MED ONCE .ROUTE ; Start 06/03/16 at 11:18; Stop 06/03/16 at 11:19; Status DC Gentamicin Sulfate (Gentamicin Inj) 240 mg STK-MED ONCE .ROUTE ; Start at 11:18; Stop 06/03/16 at 11:19; Status DC Lidocaine/ Epinephrine (Xylocaine-Epi 1%-1:100,000 Inj) 20 ml STK-MED ONCE .ROUTE ; Start 06/03/16 at 11:18; Stop 06/03/16 at 11:19; Status DC Vancomycin HCl 1000 mg 1,000 mg STK-MED ONCE .ROUTE ; Start 06/03/16 at 11:21; Stop 06/03/16 at 11:22; Status DC Cefazolin Sodium/ Dextrose (Ancef 2 Gm Premix) 50 ml @ As Directed STK-MED ONCE .ROUTE ; Start 06/03/16 at 11:22; Stop 06/03/16 at 11:23; Status DC Levetriacetam (Keppra Inj) 500 mg STK-MED ONCE IV ; Start 06/03/16 at 11:22; Stop 06/03/16 at 11:23; Status DC Bacitracin 15 applic 15 applic STK-MED ONCE .ROUTE ; Start 06/03/16 at 11:22; Stop 06/03/16 at 11:23; Status DC Sodium Chloride (NS 250 ml Inj) 250 ml @ As Directed STK-MED ONCE .ROUTE ; Start 06/03/16 at 11:22; Stop 06/03/16 at 11:23; Status DC Propofol 100 mg 100 mg ONCE ONCE IV ; Start 06/03/16 at 13:33; Stop 06/03/16 at 15:16; Status DC Propofol 50 ml @ As Directed STK-MED ONCE .ROUTE ; Start 06/03/16 at 13:32; Stop 06/03/16 at 13:33; Status DC Sodium Chloride 1,000 ml @ 100 mls/hr Q10H IV Last administered on 06/05/16at 22:23; Start 06/03/16 at 21:16; Status Hold Cefazolin Sodium/ Dextrose 50 ml @ 150 mls/hr CUSTOMER EXPERIENCE MANAGER PRN IV GIVE 60 MIN PRIOR TO INSICION; Start 06/03/16 at 21:30; Stop 06/05/16 at 21:29; Status DC Vancomycin HCl/ Sodium Chloride (Vancomycin Inj/ NS 250 ml Inj) 250 ml @ 250 mls/hr CUSTOMER EXPERIENCE MANAGER PRN IV GIVE 60 MIN PRIUOR TO INCISION; Start 06/03/16 at 21:30 ; Stop 06/05/16 at 21:29; Status DC Chlorhexidine Gluconate (Hibiclens 4% Top Soln) 1 applic HS TOP ; Start at 21:00; Stop 06/05/16 at 21:01; Status DC Water (Free Water) VOLUME: 100 ML Q6HR G-TUBE Last administered on 06/16/16at 06:12; Start 06/04/16 at 12:00; Stop 06/16/16 at 07:43; Status DC Famotidine (Pepcid) 20 mg BID NG Last administered on 07/20/16 09:32; Start 06/04/16 at 09:00 Metoprolol Tartrate (Lopressor) 12.5 mg Q12HR PO Last administered on 07/07/16 08:49; Start 06/05/16 at 21:00; Stop 07/07/16 at 08:53; Status DC Quetiapine Fumarate (SEROquel) 25 mg BID PO Last administered on 07/20/16 09: 32; Start 06/06/16 at 09:00 Loperamide HCl 2 mg 2 mg UNSCH PRN TUBE DIARRHEA Last administered on at 14:57; Start 06/06/16 at 16:15 Pharmacy Profile Note 0 ml @ 0 mls/hr UNSCH OTHER ; Start 06/10/16 at 10:15; Stop 06/18/16 at 17:56; Status DC Vancomycin HCl/ Sodium Chloride (Vancomycin Inj/ NS 250 ml Inj) 250 ml @ 250 mls/hr Q12H IV Last administered on 06/12/16at 02:06; Start 06/10/16 at 12:00; Stop 06/12/16 at 09:26; Status DC Miscellaneous Information SPECIFIC LAB TO BE ... ONCE ONCE XX Last administered on 06/12/16at 01:28; Start 06/11/16 at 23:45; Stop 06/11/16 at 23:46 ; Status DC Amphotericin B Liposome/Dextrose (Ambisome Inj/ D5W Inj) 200 ml @ 125 mls/hr Q24H IV Last administered on 06/11/16at 14:51; Start 06/11/16 at 15:00; Stop at 20:26; Status DC Amphotericin B (Amphotericin B Conv Inj) 1 mg Q24H OTHER Last administered on 06/12/16at 11:00; Start 06/11/16 at 18:00; Stop 06/12/16 at 19:27; Status DC Diphenhydramine HCl (Benadryl Inj) 25 mg Q24H PRN IV Last administered on at 16:23; Start 06/11/16 at 17:00; Stop 07/03/16 at 09:09; Status DC Hydrocortisone Sodium Succinate 25 mg 25 mg Q24H PRN IV PRE-MED PRIOR TO AMPHOTERCIN B Last administered on 06/30/16at 09:54; Start 06/11/16 at 17:00 Amphotericin B Liposome 280 mg/ Dextrose 280 ml @ 125 mls/hr Q24H IV Last administered on 06/21/16at 14:21; Start 06/12/16 at 15:00; Stop 06/22/16 at 13: 48; Status DC Potassium Chloride 100 ml @ 50 mls/hr Q2H PRN IV For Potassium 2.8 - 3.2 mEq/ L Last administered on 07/11/16t 09:24; Start 06/12/16 at 07:15; Stop 07/16/16 at 08:31; Status DC Potassium Chloride (KCl 20 Meq Premix Inj) 100 ml @ 50 mls/hr Q2H PRN IV For Potassium 2.8 - 3.2 mEq/L Last administered on 06/26/16at 11:32; Start 06/12/16 at 07:15; Stop 07/16/16 at 08:31; Status DC Potassium Chloride 40 meq 40 meq UNSCH PRN PO/TUBE For Potassium 3.3 - 3.5 mEq/ L Last administered on 06/28/16at 06:33; Start 06/12/16 at 07:15; Stop 07/16/16 at 08:31; Status DC Potassium Chloride 100 ml @ 25 mls/hr UNSCH PRN IV For Potassium 3.3 - 3.5 mEq /L; Start 06/12/16 at 07:15; Stop 07/16/16 at 08:31; Status DC Potassium Chloride 100 ml @ 50 mls/hr Q2H PRN IV For Potassium 3.3 - 3.5 mEq/ L Last administered on 06/26/16at 09:24; Start 06/12/16 at 07:15; Stop 07/16/16 at 08:31; Status DC Magnesium Sulfate/ Sodium Chloride (Magnesium Sulfate Inj/NS Inj) 100 ml @ 50 mls/hr UNSCH PRN IV For Magnesium 0.9 - 1.1 mg/dL; Start 06/12/16 at 07:15; Stop 07/16/16 at 08:31; Status DC Magnesium Oxide 800 mg 800 mg UNSCH PRN PO For Magnesium 1.2 - 1.6 mg/dL; Start 06/12/16 at 07:15; Stop 07/16/16 at 08:31; Status DC Magnesium Sulfate/ Sodium Chloride (Magnesium Sulfate Inj/NS Inj) 100 ml @ 50 mls/hr UNSCH PRN IV For Magnesium 1.2 - 1.6 mg/dL; Start 06/12/16 at 07:15; Stop 07/16/16 at 08:31; Status DC Potassium Phosphate 2000 mg 2,000 mg Q4H PRN PO For Phosphorus < 2.5 mg/dL; Start 06/12/16 at 07:15; Stop 07/16/16 at 08:32; Status DC Sodium Phosphate/ Sodium Chloride (Sodium Phosphate Inj/NS 250 ml Inj) 250 ml @ 42 mls/hr UNSCH PRN IV For Phosphorus < 2.5 mg/dL; Start 06/12/16 at 07:15 Potassium Chloride (KCl 40 Meq/30 ml Liq) 40 meq UNSCH PRN PO/TUBE SEE LABEL COMMENTS; Start 06/12/16 at 07:15; Stop 07/16/16 at 08:32; Status DC Potassium Phosphate 2000 mg 2,000 mg UNSCH PRN PO/TUBE SEE LABEL COMMENTS; Start 06/12/16 at 07:15; Stop 07/16/16 at 08:32; Status DC Potassium Phosphate/Sodium Chloride (Potassium Phosphate Inj/NS 250 ml Inj) 260 ml @ 42 mls/hr UNSCH PRN IV SEE LABEL COMMENTS; Start 06/12/16 at 07:15; Stop 07/16/16 at 08:32; Status DC Midazolam HCl (Versed Inj) 10 mg ONCE ONCE IV Last administered on 06/12/16at 10:30; Start 06/12/16 at 09:30; Stop 06/12/16 at 09:31; Status DC Fentanyl Citrate 100 mcg 100 mcg ONCE ONCE IM Last administered on 06/12/16at 10:00; Start 06/12/16 at 09:30; Stop 06/12/16 at 09:31; Status DC Vancomycin HCl/ Sodium Chloride (Vancomycin Inj/ NS 250 ml Inj) 262.5 ml @ 250 mls/hr Q12H IV Last administered on 06/14/16at 12:38; Start 06/12/16 at 12:00; Stop 06/14/16 at 13:50; Status DC Miscellaneous Information SPECIFIC LAB TO BE DRAWN:VANCOMYCIN TROUGH DATE TO... ONCE ONCE XX Last administered on 06/14/16at 11:45; Start 06/14/16 at 11:45; Stop 06/14/16 at 11:46; Status DC Amphotericin B 1 mg 1 mg Q24H OTHER Last administered on 06/29/16at 10:15; Start 06/13/16 at 09:00; Stop 06/30/16 at 09:55; Status DC Vancomycin HCl/ Sodium Chloride (Vancomycin Inj/ NS 250 ml Inj) 250 ml @ 250 mls/hr Q12H IV Last administered on 06/16/16at 12:47; Start 06/15/16 at 00:00 ; Stop 06/16/16 at 15:56; Status DC Miscellaneous Information SPECIFIC LAB TO BE FERNY... ONCE ONCE XX Last administered on 06/16/16at 11:45; Start 06/16/16 at 11:45; Stop 06/16/16 at 11 :46; Status DC Sodium Chloride (NS 1000 ml Inj) 1,000 ml @ 999 mls/hr BOLUS ONCE IV Last administered on 06/15/16at 09:14; Start 12/11/16 at 09:00; Stop 06/15/16 at 10 :00; Status DC Water 200 ml 200 ml Q6HR G-TUBE Last administered on 06/28/16at 06:23; Start 06/16/16 at 12:00; Stop 06/28/16 at 11:17; Status DC Vancomycin HCl/ Sodium Chloride (Vancomycin Inj/ NS 250 ml Inj) 250 ml @ 250 mls/hr Q18H IV Last administered on 06/18/16at 00:23; Start 06/17/16 at 06:00 ; Stop 06/18/16 at 17:56; Status DC Miscellaneous Information SPECIFIC LAB TO BE DRAWN:VANCOMYCIN DATE TO BE DR... ONCE ONCE XX ; Start 06/19/16 at 11:45; Stop 06/19/16 at 11:45; Status DC IV Flush (NS Flush) See Protocol DAILY IVF Last administered on 07/20/16 09:32 ; Start 06/23/16 at 09:00 IV Flush (NS Flush) See Protocol UNSCH PRN IVF SEE PROTOCOL TABLE; Start 06/22 at 12:30 IV Flush See Protocol UNSCH PRN IVF SEE PROTOCOL TABLE; Start 06/22/16 at 12: 30 Fluconazole/ Sodium Chloride 400 ml @ 200 mls/hr Q24H IV Last administered on 07/17/16 13:56; Start 06/22/16 at 14:00; Stop 07/18/16 at 10:36; Status DC Fluconazole/ Sodium Chloride (Diflucan 400 Mg Premix Bag) 400 ml @ 200 mls/hr Q24H IV Last administered on 07/17/16 16:17; Start 06/23/16 at 16:00; Stop at 10:36; Status DC Thiamine HCl (Vitamin B1) 100 mg DAILY PO Last administered on 07/20/16 09:32 ; Start 06/28/16 at 09:00 Water 50 ml 50 ml Q6HR PEG Last administered on 07/20/16 06:00; Start at 12:00 Sodium Chloride (NS 1000 ml Inj) 1,000 ml @ 84 mls/hr [id number] IV Last administered on 07/01/16at 17:30; Start 07/01/16 at 17:30; Stop 07/02/16 at 05 :24; Status DC Diphenhydramine HCl (Benadryl Inj) 25 mg Q6HR PRN IV pruritis Last administered on 07/03/16at 14:53; Start 07/03/16 at 12:00 Polyethylene Glycol (Miralax) 17 gm Q12H PO Last administered on 07/19/16 08: 33; Start 07/03/16 at 20:00 Metoclopramide HCl (Reglan Inj) 5 mg Q8HR IV PUSH Last administered on 05:05; Start 07/03/16 at 14:00; Stop 07/08/16 at 13:59; Status DC Metoprolol Tartrate (Lopressor) 25 mg Q12HR PO Last administered on 07/20/16 09:32; Start 07/07/16 at 09:00 Hydralazine HCl (Apresoline Inj) 10 mg Q1HR PRN IV PUSH SBP>160, DBP>90; Start 07/07/16 at 09:00 Labetalol HCl 10 mg 10 mg Q1HR PRN IV PUSH SBP>160, DBP>90, HR>65; Start at 09:00 Sodium Chloride (NS 500 ml Inj) 500 ml @ 500 mls/hr BOLUS ONCE IV Last administered on 07/09/16 12:45; Start 07/09/16 at 12:45; Stop 07/09/16 at 13:44; Status DC Metoclopramide HCl (Reglan Inj) 5 mg Q8HR IV PUSH Last administered on 10:29; Start 07/10/16 at 09:45; Stop 07/10/16 at 10:44; Status DC Metoclopramide HCl 5 mg 5 mg Q8H IV PUSH Last administered on 07/20/16 09:33; Start 07/10/16 at 18:00 Sodium Chloride 500 ml @ 500 mls/hr BOLUS ONCE IV Last administered on 13:45; Start 07/10/16 at 13:45; Stop 07/10/16 at 14:44; Status DC Sodium Chloride (NS 500 ml Inj) 500 ml @ 0 mls/hr BOLUS IV ; Start 07/10/16 at 14 :00 Potassium Chloride (KCl 40 Meq/30 ml Liq) 40 meq ONCE ONCE NG ; Start 07/11/16 at 14:15; Stop 07/11/16 at 14:16; Status DC Fluconazole (Diflucan) 400 mg DAILY PO ; Start 07/18/16 at 11:00; Stop 07/18/16 at 11:14; Status DC Fluconazole (Diflucan) 800 mg DAILY PO ; Start 07/19/16 at 09:00; Stop 07/19/16 at 09:00; Status DC Fluconazole (Diflucan) 800 mg DAILY PO Last administered on 07/20/16t 09:32; Start 07/18/16 at 13:00 Line: PICC Side: Right Location: Antecubital A/P Assessment and Plan A/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 - status post AVM embolization at [facility] followed by suboccipital craniotomy for hematoma evacuation and AVM resection - Keppra 500 mg twice a day for seizure prophylaxis - Strict BP control -neurosurgery signed off -continue rehab efforts CSF leak - repaired - no need for FINISHING INSPECTOR shunt at this time per NSGY - Continue Seroquel Hypertension - Metoprolol 25 mg every 12 hours - continue Telemetry Acute protein calorie malnutritionmild - Continue Jevity 1.5 goal 50 cc an hour - mechanical soft diet - advance to regular as tolerated - Colace Senokot for bowel regimen has been held due to multiple bowel movements - Pepcid for GI prophylaxis - Continue Reglan for prokinetic agent Normocytic anemia - H&H stable Hermila Ventriculitis - post intraventricular Amphotericin B administration. Last dose 06/30 - right ventriculostomy 06/03, replaced 06/12 - switched to po diflucan - management per ID - no growth on a sample 06/23 - repeat CSF on Thursday06/30/2016 and 07/07/2016 no growth Enterococcus Bacteremia - Completed course of Vanc IV 06/24 GI Prophylaxis Pepcid 20 mg twice a day: DVT Prophylaxis - SCDs - Heparin subQ Discharge Planning needs placement. Kayla Forman MD Jul 20, 2016 12:29
[2016-07-20 16:00] VITALS: BP 148/90; PULSE 72; RESP 18; TEMP 97.4; O2SAT 98
[2016-07-20 20:17] VITALS: BP 151/88; PULSE 83; RESP 20; TEMP 97.4; O2SAT 97
[2016-07-21 00:34] VITALS: BP 130/94; PULSE 89; RESP 20; TEMP 97; O2SAT 100
[2016-07-21] MEDS: METOCLOPRAMIDE HCL 10 MG/2 ML VIAL IV PUSH SCH ×2 (01:48→10:52)
[2016-07-21] MEDS: CHLORHEXIDINE GLUCONATE 2 % 1 PACK (2 CLOTHS) TOP SCH (01:51)
[2016-07-21 04:02] VITALS: BP 134/88; PULSE 78; RESP 20; TEMP 97.1; O2SAT 100
[2016-07-21] MEDS: FREE WATER PEG SCH ×4 (05:59→18:00)
[2016-07-21] MEDS: POLYETHYLENE GLYCOL 17 GM PKG PO SCH ×2 (08:00→20:00)
[2016-07-21 08:47] VITALS: BP 154/93; PULSE 80; RESP 16; TEMP 96.3; O2SAT 96
--- NOTE | 2016-07-21 09:58 | HHI.IDPN ---
Subjective Subjective Remarks ID COVERAGE Notes reviewed Afebrile Has intermittent confusion NS has signed off, no need for SPOOLING MACHINE OPERATOR shunt at this time No SCHULTZ today Tolerating high dose Diflucan LFT ok Has PICC 06/22 Last (+) CSF C/S from 06/12 CSF C/S 06/16, 06/23 and 06/30 and 1/2 negative EVD got pulled Jul 08 is a 55 y/o CM with AVM S/P coiling. On Rx for Hermila ventriculitis Antibiotics Diflucan po Lines PICC 06/22 Past Medical History AVM s/p coil Allergies: Coded Allergies: Oxycodone (Unverified Allergy, Intermediate, ITCHY, 01/16/16) Objective . Vital Signs Date Time Temp Pulse Resp B/P Pulse Ox O2 Delivery O2 Flow Rate FiO2 07/21/16 08:47 96.3 80 16 154/93 96 07/21/16 04:02 97.1 78 20 134/88 100 07/21/16 00:34 97.0 89 20 130/94 100 07/20/16 20:17 97.4 83 20 151/88 97 07/20/16 16:00 97.4 72 18 148/90 98 07/20/16 12:00 96.8 71 15 134/92 98 07/20/16 07/20/16 07/21/16 15:00 23:00 07:00 Intake Total 240 ml Output Total 1000 ml 650 ml Balance -1000 ml -410 ml Intake Oral 240 ml Output Urine Total 1000 ml 650 ml # Voids 2 3 # Bowel Movements 4 2 Imaging Lower Extremity Ultrasound 07/05/16 0000 Signed Impressions: Service Date/Time: Tuesday, July 05, 2016 11:28 - CONCLUSION: Normal examination. Jese Malik MD Head CT 07/04/16 0600 Signed Impressions: Service Date/Time: Monday, July 04, 2016 04:27 - CONCLUSION: 1. Postoperative changes in the left cerebellum with multiple coils again seen. 2. The fluid collection in the postoperative bed has increased in size now measuring 7.0 x 4.2 cm. 3. The ventricles are mildly dilated when compared to previous study. 4. Right frontal ventriculostomy catheter is unchanged in position. Altaf Alfaro MD Abdomen X-Ray 07/01/16 0000 Signed Impressions: Service Date/Time: Friday, July 01, 2016 17:33 - CONCLUSION: Benign abdomen. Probable PEG tube in place Don López MD Chest X-Ray 06/22/16 0000 Signed Impressions: Service Date/Time: Wednesday, June 22, 2016 12:54 - CONCLUSION: No acute cardiopulmonary disease identified. Tommy Ramirez MD ADDENDUM: There is a right arm PICC appropriately positioned, tip at the atriocaval junction. Brian Hu MD Head CT 06/10/16 0600 Signed Impressions: Service Date/Time: Friday, June 10, 2016 05:01 - CONCLUSION: 1. 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 Locules of air within the fluid are decreasing since June 08. Right frontal ventriculostomy tube remains present with stable ventricular size. No hydrocephalus. Kirk Cortes MD Physical Exam GENERAL: Awake and alert, NAD SKIN: No rashes. HEENT: pink conjunctiva, no icterus. Moist mucosa. Sutires on scalp, clean no evidence of infection NECK: Supple, nontender, neck not very supple. CARDIOVASCULAR: Regular rate and rhythm. No murmur appreciated. RESPIRATORY: Clear to auscultation. Breath sounds equal bilaterally. No wheezes , rales, or rhonchi. GASTROINTESTINAL: Abdomen soft, non-tender, nondistended. MUSCULOSKELETAL: Extremities without clubbing, cyanosis, or edema. NEUROLOGICAL: Awake, alert, responding LINE: IV line sites with no e/o infection. Assessment & Plan Remarks Hermila albicans ventriculitis. - CSF counts better - all fup C/S negative - last (+) C/S 06/12 E.faecalis bacteremia: No central lines or PIVs. Treated. Repeat BCX negative. SIRS/Sepsis now controlled since Vanco IV started. AVM was transferred to [facility] for further treatment of the AVM by embolization followed by suboccipital craniotomy for hematoma evacuation and AVM resection. CSF leak and hydrocephalus s/p Rt sima hole and Ventriculostomy catheter placement 06/03/2016. Recs: Continue Diflucan po, high dose Repeat labs tomorrow End date Aug 2 - about 4 weeks of oral antifungal rx Monitor progress D/W Matlide Katz MD Jul 21, 2016 09:57
[2016-07-21] MEDS: levETIRAcetam 500 MG TAB PO SCH ×2 (10:49→20:46)
[2016-07-21] MEDS: FAMOTIDINE 20 MG TAB NG SCH ×2 (10:49→20:47)
[2016-07-21] MEDS: SODIUM CHLORIDE 0.9% FLUSH 5 ML FLUSH IV FLUSH SCH ×2 (10:49→20:47)
[2016-07-21] MEDS: METOPROLOL TARTRATE 25 MG TAB PO SCH ×2 (10:50→20:47)
[2016-07-21] MEDS: QUEtiapine FUMARATE 25 MG TAB PO SCH ×2 (10:50→20:47)
[2016-07-21] MEDS: FLUCONAZOLE 200 MG TAB PO SCH (10:50)
[2016-07-21] MEDS: THIAMINE HCL 100 MG TAB PO SCH (10:50)
[2016-07-21] MEDS: HEPARIN SODIUM - SQ 10,000 UNITS/ML VIAL SQ SCH ×2 (10:52→20:47)
--- NOTE | 2016-07-21 11:58 | HHI.PR ---
Subjective Remarks awake and more alert today. no headache today. d/w the RN and no acute issues over night. Objective Vitals Vital Signs Date Time Temp Pulse Resp B/P Pulse Ox O2 Delivery O2 Flow Rate FiO2 07/21/16 08:47 96.3 80 16 154/93 96 07/21/16 04:02 97.1 78 20 134/88 100 07/21/16 00:34 97.0 89 20 130/94 100 07/20/16 20:17 97.4 83 20 151/88 97 07/20/16 16:00 97.4 72 18 148/90 98 07/20/16 12:00 96.8 71 15 134/92 98 I/O 07/20/16 07/20/16 07/20/16 07/21/16 07/21/16 07/21/16 07:00 15:00 23:00 07:00 15:00 23:00 Intake Total 240 ml 240 ml 700 ml Output Total 350 ml 1000 ml 650 ml Balance -110 ml -1000 ml -410 ml 700 ml Intake Oral 240 ml 240 ml Tube Feeding 600 ml Other 100 ml Output Urine Total 350 ml 1000 ml 650 ml # Voids 2 3 # Bowel Movements 4 2 Imaging Last Impressions Head CT 07/15/16 0600 Signed Impressions: Service Date/Time: Friday, July 15, 2016 05:43 - CONCLUSION: 1. Fluid collection in the posterior soft tissues has significantly decreased in prominence. 2. Post surgical changes in the left cerebellum with previous occipital craniectomy. Altaf Alfaro MD Abdomen X-Ray 07/10/16 0937 Signed Impressions: Service Date/Time: July 09:57 - CONCLUSION: Stable nonspecific benign abdomen appearance Brian Vasquez MD Lower Extremity Ultrasound 07/05/16 0000 Signed Impressions: Service Date/Time: Tuesday, July 05, 2016 11:28 - CONCLUSION: Normal examination. Jese Malik MD Chest X-Ray 06/22/16 0000 Signed Impressions: Service Date/Time: Wednesday, June 22, 2016 12:54 - CONCLUSION: No acute cardiopulmonary disease identified. Tommy Ramirez MD ADDENDUM: There is a right arm PICC appropriately positioned, tip at the atriocaval junction. Brian Hu MD Objective Remarks GENERAL: This is a well-nourished, well-developed patient, in no apparent distress. CARDIOVASCULAR: Regular rate and regular rhythm without murmurs, gallops, or rubs. RESPIRATORY: Clear to auscultation. Breath sounds equal bilaterally. No wheezes , rales, or rhonchi. GASTROINTESTINAL: Abdomen soft, non-tender, nondistended. Normal, active bowel sounds MUSCULOSKELETAL: Extremities without clubbing, cyanosis, or edema. NEURO: awake and alert- oriented to person and partly to place Procedures Right frontal [place] hole with placement of a ventriculostomy catheter Medications and IVs Current Medications IV Flush (NS Flush) 2 ml UNSCH PRN FLUSH FLUSH AFTER USING IV ACCESS; Start at 15:00; Stop 06/03/16 at 10:23; Status DC IV Flush (NS Flush) 2 ml BID FLUSH Last administered on 06/02/16at 21:00; Start 05/29/16 at 21:00; Stop 06/03/16 at 10:23; Status DC Ondansetron HCl (Zofran Inj) 4 mg Q6H PRN IVP NAUSEA OR VOMITING; Start at 15:00; Stop 06/03/16 at 14:04; Status DC Naloxone HCl 0.4 mg 0.4 mg UNSCH PRN IV SEE LABEL COMMENTS; Start 05/29/16 at 15:00 Ceftriaxone Sodium/Sodium Chloride (Rocephin Inj/NS Inj) 100 ml @ 200 mls/hr Q12H IV Last administered on 06/02/16at 04:47; Start 05/29/16 at 16:00; Stop 06/02/16 at 10:27; Status DC Acetaminophen/ Butalbital/ Caffeine (Fioricet 325-50-40) 1 tab Q6H PRN PO PAIN GREATER THAN 5 or headach Last administered on 07/16/16 06:07; Start 05/29/16 at 15:00 Heparin Sodium (Porcine) (Heparin Inj) 5,000 units Q12HR SQ Last administered on 07/21/16 10:52; Start 05/29/16 at 21:00 Levetriacetam (Keppra) 500 mg Q12HR PO Last administered on 07/21/16 10:49; Start 05/29/16 at 21:00 Metoprolol Tartrate (Lopressor) 25 mg Q12HR PO Last administered on 05/31/16at 08:33; Start 05/29/16 at 21:00; Stop 06/02/16 at 10:29; Status DC Quetiapine Fumarate 25 mg 25 mg BID PO Last administered on 06/02/16at 10:37; Start 05/29/16 at 21:00; Stop 06/02/16 at 10:53; Status DC Sodium Chloride (NS 1000 ml Inj) 1,000 ml @ 100 mls/hr Q10H IV Last administered on 06/01/16at 14:27; Start 06/01/16 at 14:30; Stop 06/02/16 at 00 :29; Status DC Morphine Sulfate (Morphine Inj) 2 mg Q3H PRN IV PUSH BREAKTHROUGH PAIN Last administered on 07/13/16 14:15; Start 06/02/16 at 10:30 Metoprolol Tartrate (Lopressor) 50 mg Q12HR PO Last administered on 06/03/16at 20:29; Start 06/02/16 at 21:00; Stop 06/05/16 at 09:12; Status DC Quetiapine Fumarate (SEROquel) 50 mg BID PO Last administered on 06/05/16at 20: 36; Start 06/02/16 at 21:00; Stop 06/06/16 at 07:57; Status DC Diphenhydramine HCl (Benadryl 2% Cream) 1 applic TID PRN TOPICAL ITCHING; Start 06/02/16 at 11:15 Iohexol 95 ml 95 ml STK-MED ONCE IV ; Start 06/02/16 at 20:32; Stop 06/02/16 at 20:33; Status DC Sodium Chloride (NS 1000 ml Inj) 1,000 ml @ 84 mls/hr [id number] IV Last administered on 06/03/16at 21:40; Start 06/03/16 at 09:45; Stop 06/04/16 at 07 :32; Status DC IV Flush (NS Flush) 2 ml UNSCH PRN IV FLUSH FLUSH AFTER USING IV ACCESS Last administered on 07/17/16 02:44; Start 06/03/16 at 09:45 IV Flush (NS Flush) 2 ml BID IV FLUSH Last administered on 07/21/16 10:49; Start 06/03/16 at 21:00 Acetaminophen (Tylenol) 650 mg Q6H PRN PO FEVER >100F Last administered on at 09:11; Start 06/03/16 at 09:45 Ondansetron HCl (Zofran Inj) 4 mg Q6H PRN IV NAUSEA OR VOMITING Last administered on 07/08/16 08:54; Start 06/03/16 at 09:45 Docusate Sodium (Colace) 100 mg BID PO Last administered on 07/04/16at 08:16; Start 06/03/16 at 21:00; Status Hold Sennosides (Senokot) 17.2 mg BID PO Last administered on 07/04/16at 20:41; Start 06/03/16 at 09:45; Status Hold Albuterol/ Ipratropium (Duoneb Neb) 1 ampule Q2HR NEB PRN INH WHEEZING; Start 06/03/16 at 09:45 Miscellaneous Information 1 Q361D XX ; Start 06/03/16 at 09:45 Chlorhexidine Gluconate (Chlorhexidine 2% Cloth) Taper DAILY@04 TOP Last administered on 07/14/16 04:00; Start 06/04/16 at 04:00; Stop 05/31/17 at 03: 59 Chlorhexidine Gluconate 3 pack 3 pack UNSCH PRN TOP HYGIENIC CARE; Start 06/03 at 09:45 Thiamine HCl/ Sodium Chloride (Thiamine Inj/NS Inj) 101 ml @ 101 mls/hr DAILY IV Last administered on 06/27/16at 08:19; Start 06/04/16 at 09:00; Stop 06/27 at 09:05; Status DC Docusate Sodium (Colace) 100 mg BID PO ; Start 06/03/16 at 21:00; Status UNV Polyethylene Glycol (Miralax) 17 gm DAILY PO Last administered on 06/30/16at 09 :11; Start 06/04/16 at 09:00; Stop 07/03/16 at 09:09; Status DC Microfibriller Collagen Hemostat (Avitene Bandage) 1 bandage STK-MED ONCE .ROUTE ; Start 06/03/16 at 11:17; Stop 06/03/16 at 11:18; Status DC Thrombin (Thrombin Top Soln) 10,000 units STK-MED ONCE .ROUTE ; Start 06/03/16 at 11:17; Stop 06/03/16 at 11:18; Status DC Gelatin (Gelfoam 100 Top) 1 foam STK-MED ONCE .ROUTE ; Start 06/03/16 at 11:18 ; Stop 06/03/16 at 11:19; Status DC Cefazolin Sodium (Ancef Inj) 1,000 mg STK-MED ONCE .ROUTE ; Start 06/03/16 at 11:18; Stop 06/03/16 at 11:19; Status DC Gentamicin Sulfate (Gentamicin Inj) 240 mg STK-MED ONCE .ROUTE ; Start at 11:18; Stop 06/03/16 at 11:19; Status DC Lidocaine/ Epinephrine (Xylocaine-Epi 1%-1:100,000 Inj) 20 ml STK-MED ONCE .ROUTE ; Start 06/03/16 at 11:18; Stop 06/03/16 at 11:19; Status DC Vancomycin HCl 1000 mg 1,000 mg STK-MED ONCE .ROUTE ; Start 06/03/16 at 11:21; Stop 06/03/16 at 11:22; Status DC Cefazolin Sodium/ Dextrose (Ancef 2 Gm Premix) 50 ml @ As Directed STK-MED ONCE .ROUTE ; Start 06/03/16 at 11:22; Stop 06/03/16 at 11:23; Status DC Levetriacetam (Keppra Inj) 500 mg STK-MED ONCE IV ; Start 06/03/16 at 11:22; Stop 06/03/16 at 11:23; Status DC Bacitracin 15 applic 15 applic STK-MED ONCE .ROUTE ; Start 06/03/16 at 11:22; Stop 06/03/16 at 11:23; Status DC Sodium Chloride (NS 250 ml Inj) 250 ml @ As Directed STK-MED ONCE .ROUTE ; Start 06/03/16 at 11:22; Stop 06/03/16 at 11:23; Status DC Propofol 100 mg 100 mg ONCE ONCE IV ; Start 06/03/16 at 13:33; Stop 06/03/16 at 15:16; Status DC Propofol 50 ml @ As Directed STK-MED ONCE .ROUTE ; Start 06/03/16 at 13:32; Stop 06/03/16 at 13:33; Status DC Sodium Chloride 1,000 ml @ 100 mls/hr Q10H IV Last administered on 06/05/16at 22:23; Start 06/03/16 at 21:16; Status Hold Cefazolin Sodium/ Dextrose 50 ml @ 150 mls/hr LIVESTOCK SALES REPRESENTATIVE PRN IV GIVE 60 MIN PRIOR TO INSICION; Start 06/03/16 at 21:30; Stop 06/05/16 at 21:29; Status DC Vancomycin HCl/ Sodium Chloride (Vancomycin Inj/ NS 250 ml Inj) 250 ml @ 250 mls/hr LIVESTOCK SALES REPRESENTATIVE PRN IV GIVE 60 MIN PRIUOR TO INCISION; Start 06/03/16 at 21:30 ; Stop 06/05/16 at 21:29; Status DC Chlorhexidine Gluconate (Hibiclens 4% Top Soln) 1 applic HS TOP ; Start at 21:00; Stop 06/05/16 at 21:01; Status DC Water (Free Water) VOLUME: 100 ML Q6HR G-TUBE Last administered on 06/16/16at 06:12; Start 06/04/16 at 12:00; Stop 06/16/16 at 07:43; Status DC Famotidine (Pepcid) 20 mg BID NG Last administered on 07/21/16 10:49; Start 06/04/16 at 09:00 Metoprolol Tartrate (Lopressor) 12.5 mg Q12HR PO Last administered on 07/07/16 08:49; Start 06/05/16 at 21:00; Stop 07/07/16 at 08:53; Status DC Quetiapine Fumarate (SEROquel) 25 mg BID PO Last administered on 07/21/16 10: 50; Start 06/06/16 at 09:00 Loperamide HCl 2 mg 2 mg UNSCH PRN TUBE DIARRHEA Last administered on at 14:57; Start 06/06/16 at 16:15 Pharmacy Profile Note 0 ml @ 0 mls/hr UNSCH OTHER ; Start 06/10/16 at 10:15; Stop 06/18/16 at 17:56; Status DC Vancomycin HCl/ Sodium Chloride (Vancomycin Inj/ NS 250 ml Inj) 250 ml @ 250 mls/hr Q12H IV Last administered on 06/12/16at 02:06; Start 06/10/16 at 12:00; Stop 06/12/16 at 09:26; Status DC Miscellaneous Information SPECIFIC LAB TO BE FERNY... ONCE ONCE XX Last administered on 06/12/16at 01:28; Start 06/11/16 at 23:45; Stop 06/11/16 at 23:46 ; Status DC Amphotericin B Liposome/Dextrose (Ambisome Inj/ D5W Inj) 200 ml @ 125 mls/hr Q24H IV Last administered on 06/11/16at 14:51; Start 06/11/16 at 15:00; Stop at 20:26; Status DC Amphotericin B (Amphotericin B Conv Inj) 1 mg Q24H OTHER Last administered on 06/12/16at 11:00; Start 06/11/16 at 18:00; Stop 06/12/16 at 19:27; Status DC Diphenhydramine HCl (Benadryl Inj) 25 mg Q24H PRN IV Last administered on at 16:23; Start 06/11/16 at 17:00; Stop 07/03/16 at 09:09; Status DC Hydrocortisone Sodium Succinate 25 mg 25 mg Q24H PRN IV PRE-MED PRIOR TO AMPHOTERCIN B Last administered on 06/30/16at 09:54; Start 06/11/16 at 17:00 Amphotericin B Liposome 280 mg/ Dextrose 280 ml @ 125 mls/hr Q24H IV Last administered on 06/21/16at 14:21; Start 06/12/16 at 15:00; Stop 06/22/16 at 13: 48; Status DC Potassium Chloride 100 ml @ 50 mls/hr Q2H PRN IV For Potassium 2.8 - 3.2 mEq/ L Last administered on 07/11/16t 09:24; Start 06/12/16 at 07:15; Stop 07/16/16 at 08:31; Status DC Potassium Chloride (KCl 20 Meq Premix Inj) 100 ml @ 50 mls/hr Q2H PRN IV For Potassium 2.8 - 3.2 mEq/L Last administered on 06/26/16at 11:32; Start 06/12/16 at 07:15; Stop 07/16/16 at 08:31; Status DC Potassium Chloride 40 meq 40 meq UNSCH PRN PO/TUBE For Potassium 3.3 - 3.5 mEq/ L Last administered on 06/28/16at 06:33; Start 06/12/16 at 07:15; Stop 07/16/16 at 08:31; Status DC Potassium Chloride 100 ml @ 25 mls/hr UNSCH PRN IV For Potassium 3.3 - 3.5 mEq /L; Start 06/12/16 at 07:15; Stop 07/16/16 at 08:31; Status DC Potassium Chloride 100 ml @ 50 mls/hr Q2H PRN IV For Potassium 3.3 - 3.5 mEq/ L Last administered on 06/26/16at 09:24; Start 06/12/16 at 07:15; Stop 07/16/16 at 08:31; Status DC Magnesium Sulfate/ Sodium Chloride (Magnesium Sulfate Inj/NS Inj) 100 ml @ 50 mls/hr UNSCH PRN IV For Magnesium 0.9 - 1.1 mg/dL; Start 06/12/16 at 07:15; Stop 07/16/16 at 08:31; Status DC Magnesium Oxide 800 mg 800 mg UNSCH PRN PO For Magnesium 1.2 - 1.6 mg/dL; Start 06/12/16 at 07:15; Stop 07/16/16 at 08:31; Status DC Magnesium Sulfate/ Sodium Chloride (Magnesium Sulfate Inj/NS Inj) 100 ml @ 50 mls/hr UNSCH PRN IV For Magnesium 1.2 - 1.6 mg/dL; Start 06/12/16 at 07:15; Stop 07/16/16 at 08:31; Status DC Potassium Phosphate 2000 mg 2,000 mg Q4H PRN PO For Phosphorus < 2.5 mg/dL; Start 06/12/16 at 07:15; Stop 07/16/16 at 08:32; Status DC Sodium Phosphate/ Sodium Chloride (Sodium Phosphate Inj/NS 250 ml Inj) 250 ml @ 42 mls/hr UNSCH PRN IV For Phosphorus < 2.5 mg/dL; Start 06/12/16 at 07:15 Potassium Chloride (KCl 40 Meq/30 ml Liq) 40 meq UNSCH PRN PO/TUBE SEE LABEL COMMENTS; Start 06/12/16 at 07:15; Stop 07/16/16 at 08:32; Status DC Potassium Phosphate 2000 mg 2,000 mg UNSCH PRN PO/TUBE SEE LABEL COMMENTS; Start 06/12/16 at 07:15; Stop 07/16/16 at 08:32; Status DC Potassium Phosphate/Sodium Chloride (Potassium Phosphate Inj/NS 250 ml Inj) 260 ml @ 42 mls/hr UNSCH PRN IV SEE LABEL COMMENTS; Start 06/12/16 at 07:15; Stop 07/16/16 at 08:32; Status DC Midazolam HCl (Versed Inj) 10 mg ONCE ONCE IV Last administered on 06/12/16at 10:30; Start 06/12/16 at 09:30; Stop 06/12/16 at 09:31; Status DC Fentanyl Citrate 100 mcg 100 mcg ONCE ONCE IM Last administered on 06/12/16at 10:00; Start 06/12/16 at 09:30; Stop 06/12/16 at 09:31; Status DC Vancomycin HCl/ Sodium Chloride (Vancomycin Inj/ NS 250 ml Inj) 262.5 ml @ 250 mls/hr Q12H IV Last administered on 06/14/16at 12:38; Start 06/12/16 at 12:00; Stop 06/14/16 at 13:50; Status DC Miscellaneous Information SPECIFIC LAB TO BE DRAWN:VANCOMYCIN TROUGH DATE TO... ONCE ONCE XX Last administered on 06/14/16at 11:45; Start 06/14/16 at 11:45; Stop 06/14/16 at 11:46; Status DC Amphotericin B 1 mg 1 mg Q24H OTHER Last administered on 06/29/16at 10:15; Start 06/13/16 at 09:00; Stop 06/30/16 at 09:55; Status DC Vancomycin HCl/ Sodium Chloride (Vancomycin Inj/ NS 250 ml Inj) 250 ml @ 250 mls/hr Q12H IV Last administered on 06/16/16at 12:47; Start 06/15/16 at 00:00 ; Stop 06/16/16 at 15:56; Status DC Miscellaneous Information SPECIFIC LAB TO BE FERNY... ONCE ONCE XX Last administered on 06/16/16at 11:45; Start 06/16/16 at 11:45; Stop 06/16/16 at 11 :46; Status DC Sodium Chloride (NS 1000 ml Inj) 1,000 ml @ 999 mls/hr BOLUS ONCE IV Last administered on 06/15/16at 09:14; Start 06/15/16 at 09:00; Stop 06/15/16 at 10 :00; Status DC Water 200 ml 200 ml Q6HR G-TUBE Last administered on 06/28/16at 06:23; Start 06/16/16 at 12:00; Stop 06/28/16 at 11:17; Status DC Vancomycin HCl/ Sodium Chloride (Vancomycin Inj/ NS 250 ml Inj) 250 ml @ 250 mls/hr Q18H IV Last administered on 06/18/16at 00:23; Start 06/17/16 at 06:00 ; Stop 06/18/16 at 17:56; Status DC Miscellaneous Information SPECIFIC LAB TO BE DRAWN:VANCOMYCIN DATE TO BE DR... ONCE ONCE XX ; Start 06/19/16 at 11:45; Stop 06/19/16 at 11:45; Status DC IV Flush (NS Flush) See Protocol DAILY IVF Last administered on 07/21/16 10:49 ; Start 06/23/16 at 09:00 IV Flush (NS Flush) See Protocol UNSCH PRN IVF SEE PROTOCOL TABLE; Start 06/22 at 12:30 IV Flush See Protocol UNSCH PRN IVF SEE PROTOCOL TABLE; Start 06/22/16 at 12: 30 Fluconazole/ Sodium Chloride 400 ml @ 200 mls/hr Q24H IV Last administered on 07/17/16 13:56; Start 06/22/16 at 14:00; Stop 07/18/16 at 10:36; Status DC Fluconazole/ Sodium Chloride (Diflucan 400 Mg Premix Bag) 400 ml @ 200 mls/hr Q24H IV Last administered on 07/17/16 16:17; Start 06/23/16 at 16:00; Stop at 10:36; Status DC Thiamine HCl (Vitamin B1) 100 mg DAILY PO Last administered on 07/21/16 10:50 ; Start 06/28/16 at 09:00 Water 50 ml 50 ml Q6HR PEG Last administered on 07/21/16 10:53; Start at 12:00 Sodium Chloride (NS 1000 ml Inj) 1,000 ml @ 84 mls/hr [id number] IV Last administered on 07/01/16at 17:30; Start 07/01/16 at 17:30; Stop 07/02/16 at 05 :24; Status DC Diphenhydramine HCl (Benadryl Inj) 25 mg Q6HR PRN IV pruritis Last administered on 07/03/16at 14:53; Start 07/03/16 at 12:00 Polyethylene Glycol (Miralax) 17 gm Q12H PO Last administered on 07/19/16 08: 33; Start 07/03/16 at 20:00 Metoclopramide HCl (Reglan Inj) 5 mg Q8HR IV PUSH Last administered on 05:05; Start 07/03/16 at 14:00; Stop 07/08/16 at 13:59; Status DC Metoprolol Tartrate (Lopressor) 25 mg Q12HR PO Last administered on 07/21/16 10:50; Start 07/07/16 at 09:00 Hydralazine HCl (Apresoline Inj) 10 mg Q1HR PRN IV PUSH SBP>160, DBP>90; Start 07/07/16 at 09:00 Labetalol HCl 10 mg 10 mg Q1HR PRN IV PUSH SBP>160, DBP>90, HR>65; Start at 09:00 Sodium Chloride (NS 500 ml Inj) 500 ml @ 500 mls/hr BOLUS ONCE IV Last administered on 07/09/16 12:45; Start 07/09/16 at 12:45; Stop 07/09/16 at 13:44; Status DC Metoclopramide HCl (Reglan Inj) 5 mg Q8HR IV PUSH Last administered on 10:29; Start 07/10/16 at 09:45; Stop 07/10/16 at 10:44; Status DC Metoclopramide HCl 5 mg 5 mg Q8H IV PUSH Last administered on 07/21/16 10:52; Start 07/10/16 at 18:00 Sodium Chloride 500 ml @ 500 mls/hr BOLUS ONCE IV Last administered on 13:45; Start 07/10/16 at 13:45; Stop 07/10/16 at 14:44; Status DC Sodium Chloride (NS 500 ml Inj) 500 ml @ 0 mls/hr BOLUS IV ; Start 07/10/16 at 14 :00 Potassium Chloride (KCl 40 Meq/30 ml Liq) 40 meq ONCE ONCE NG ; Start 07/11/16 at 14:15; Stop 07/11/16 at 14:16; Status DC Fluconazole (Diflucan) 400 mg DAILY PO ; Start 07/18/16 at 11:00; Stop 07/18/16 at 11:14; Status DC Fluconazole (Diflucan) 800 mg DAILY PO ; Start 07/19/16 at 09:00; Stop 07/19/16 at 09:00; Status DC Fluconazole (Diflucan) 800 mg DAILY PO Last administered on 07/21/16t 10:50; Start 07/18/16 at 13:00; Stop 08/07/16 at 23:00 Line: PICC Side: Right Location: Antecubital A/P Assessment and Plan A/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 - status post AVM embolization at [facility] followed by suboccipital craniotomy for hematoma evacuation and AVM resection - Keppra 500 mg twice a day for seizure prophylaxis - Strict BP control -neurosurgery signed off -continue rehab efforts CSF leak - repaired - no need for FISH HATCHERY SUPERVISOR shunt at this time per NSGY - Continue Seroquel Hypertension - Metoprolol 25 mg every 12 hours - continue Telemetry Acute protein calorie malnutritionmild - Continue Jevity 1.5 goal 50 cc an hour - mechanical soft diet - advance to regular as tolerated - Colace Senokot for bowel regimen has been held due to multiple bowel movements - Pepcid for GI prophylaxis - Continue Reglan for prokinetic agent Normocytic anemia - H&H stable Hermila Ventriculitis - post intraventricular Amphotericin B administration. Last dose 06/30 - right ventriculostomy 06/03, replaced 06/12 - switched to po diflucan- end date 08/07/16 per ID recommendations. - management per ID - no growth on a sample 06/23 - repeat CSF on Thursday06/30/2016 and 07/07/2016 no growth Enterococcus Bacteremia - Completed course of Vanc IV 06/24 GI Prophylaxis Pepcid 20 mg twice a day: DVT Prophylaxis - SCDs - Heparin subQ Discharge Planning needs placement. Kayla Forman MD Jul 21, 2016 11:58
[2016-07-21 12:44] VITALS: BP 134/95; PULSE 91; RESP 16; TEMP 97.5; O2SAT 95
[2016-07-21] MEDS: METOCLOPRAMIDE HCL 10 MG TAB PO SCH ×2 (16:42→20:46)
[2016-07-21 17:42] VITALS: BP 134/95; PULSE 97; RESP 16; TEMP 97.5; O2SAT 65
[2016-07-21 20:00] VITALS: BP 122/78; PULSE 76; RESP 16; TEMP 97; O2SAT 98
[2016-07-22] VITALS (7 sets, daily range): BP systolic 103–140; BP diastolic 69–85; PULSE 69–99; RESP 16–19; TEMP 96.8–98.7; O2SAT 94–100
[2016-07-22] MEDS: CHLORHEXIDINE GLUCONATE 2 % 1 PACK (2 CLOTHS) TOP SCH (00:29)
[2016-07-22] MEDS: FREE WATER PEG SCH ×5 (05:29→21:22)
[2016-07-22] MEDS: METOCLOPRAMIDE HCL 10 MG TAB PO SCH ×4 (05:29→21:21)
[2016-07-22 07:14] LABS: AUTOMATED NEUTROPHIL # 3.8 TH/MM3 (1.8-7.7); BASOPHIL % 0.6 % (0.0-2.0); EOSINOPHIL # 0.2 TH/MM3 (0-0.4); EOSINOPHIL % 2.7 % (0.0-4.0); HEMATOCRIT 34.1 % (39.0-51.0); HEMO FLAGS DIFF FINAL; LYMPHOCYTE # 1.4 TH/MM3 (1.0-4.8); MEAN CORPUSCULAR HEMOGLOBIN 29.6 PG (27.0-34.0); MEAN CORPUSCULAR HGB CONC 33.6 % (32.0-36.0); MONO % 10.3 % (0.0-8.0); NEUT % 63.4 % (16.0-70.0); PLATELET COUNT 259 TH/MM3 (150-450); RED BLOOD COUNT 3.88 MIL/MM3 (4.50-5.90); RED CELL DISTRIBUTION WIDTH 14.1 % (11.6-17.2)
[2016-07-22 07:32] LABS: ALT (GPT) 29 U/L (12-78); AST (GOT) 11 U/L (15-37)
[2016-07-22 07:33] LABS: ALKALINE PHOSPHATASE 104 U/L (45-117); TOTAL BILIRUBIN ADULT 0.1 MG/DL (0.2-1.0)
--- NOTE | 2016-07-22 07:51 | HHI.PR ---
Subjective Remarks patient is awake and alert, oriented x 3 this am, interactive denies any pain he states that our food is "horrible" tolerating tube feedings ff all commands states he is sure he had a BM the day before yesterday Objective Vitals Vital Signs Date Time Temp Pulse Resp B/P Pulse Ox O2 Delivery O2 Flow Rate FiO2 07/22/16 04:00 97.9 71 18 122/76 98 07/22/16 00:00 98.7 71 18 103/69 97 07/21/16 20:00 97.0 76 16 122/78 98 07/21/16 17:42 97.5 97 16 134/95 65 07/21/16 12:44 97.5 91 16 134/95 95 07/21/16 08:47 96.3 80 16 154/93 96 I/O 07/21/16 07/21/16 07/21/16 07/22/16 07/22/16 07/22/16 07:00 15:00 23:00 07:00 15:00 23:00 Intake Total 1060 ml 1075 ml Output Total 1 ml 300 ml Balance 1060 ml 1074 ml -300 ml Intake Oral 360 ml 240 ml Tube Feeding 600 ml 735 ml Other 100 ml 100 ml Output Urine Total 300 ml Stool Total 1 ml # Voids 3 1 3 # Bowel Movements 1 Result Diagram: 07/22/16 0615 Imaging Last Impressions Head CT 07/15/16 0600 Signed Impressions: Service Date/Time: Friday, July 15, 2016 05:43 - CONCLUSION: 1. Fluid collection in the posterior soft tissues has significantly decreased in prominence. 2. Post surgical changes in the left cerebellum with previous occipital craniectomy. Altaf Alfaro MD Abdomen X-Ray 07/10/16 0937 Signed Impressions: Service Date/Time: July 09:57 - CONCLUSION: Stable nonspecific benign abdomen appearance Brian Vasquez MD Lower Extremity Ultrasound 07/05/16 0000 Signed Impressions: Service Date/Time: Tuesday, July 05, 2016 11:28 - CONCLUSION: Normal examination. Jese Malik MD Chest X-Ray 06/22/16 0000 Signed Impressions: Service Date/Time: Wednesday, June 22, 2016 12:54 - CONCLUSION: No acute cardiopulmonary disease identified. Tommy Ramirez MD ADDENDUM: There is a right arm PICC appropriately positioned, tip at the atriocaval junction. 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 LE strength equal Procedures Right frontal [place] hole with placement of a ventriculostomy catheter Line: PICC Side: Right Location: Antecubital A/P Problem List: (1) Cerebellar hemorrhage ICD Code: I61.4 Status: Acute (2) AVM (arteriovenous malformation) brain ICD Code: Q28.2 Status: Acute (3) Encephalopathy, traumatic ICD Code: F07.81 Status: Acute (4) UTI (urinary tract infection) ICD Code: N39.0 Status: Acute (5) Agitation ICD Code: R45.1 Status: Acute Assessment and Plan 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 - status post AVM embolization at [facility] [place] followed by suboccipital craniotomy for hematoma evacuation and AVM resection - Keppra 500 mg twice a day for seizure prophylaxis - Strict BP control -neurosurgery signed off -continue rehab efforts -cognitive therapy ongoing CSF leak - repaired - no need for HEALTHCARE CONSULTING MANAGER shunt at this time per NSGY - Continue Seroquel Hypertension - Metoprolol 25 mg every 12 hours - continue Telemetry Acute protein calorie malnutritionmild - Continue Jevity 1.5 goal 50 cc an hour - mechanical soft diet - advance to regular as tolerated- will advance - Colace Senokot for bowel regimen has been held due to multiple bowel movements - Pepcid for GI prophylaxis - Continue Reglan for prokinetic agent Normocytic anemia - H&H stable Hermila Ventriculitis - post intraventricular Amphotericin B administration. Last dose 06/30 - right ventriculostomy 06/03, replaced 06/12 - on po Dilfucan 800 mg daily- end date 08/07/16 per ID recommendations.- Dr. Coulter - no growth on a sample 06/23 - repeat CSF 06/30/2016 and 07/07/2016 no growth Enterococcus Bacteremia - Completed course of Vanc IV 06/24 GI Prophylaxis Pepcid 20 mg twice a day: DVT Prophylaxis - SCDs - Heparin subQ Discharge Planning needs placement. Problem Qualifiers (1) Cerebellar hemorrhage: Qualified Code: I61.4 - Nontraumatic intracerebral hemorrhage of cerebellum, unspecified laterality (2) UTI (urinary tract infection): Jeison Neal MD Jul 22, 2016 07:51
[2016-07-22] MEDS: POLYETHYLENE GLYCOL 17 GM PKG PO SCH ×2 (08:00→20:00)
[2016-07-22] MEDS: SODIUM CHLORIDE 0.9% FLUSH 5 ML FLUSH IV FLUSH SCH ×2 (09:00→21:00)
[2016-07-22] MEDS: FLUCONAZOLE 200 MG TAB PO SCH (09:00)
[2016-07-22] MEDS: FAMOTIDINE 20 MG TAB NG SCH ×2 (09:01→21:22)
[2016-07-22] MEDS: QUEtiapine FUMARATE 25 MG TAB PO SCH ×2 (09:01→21:21)
[2016-07-22] MEDS: METOPROLOL TARTRATE 25 MG TAB PO SCH ×2 (09:01→21:22)
[2016-07-22] MEDS: levETIRAcetam 500 MG TAB PO SCH ×2 (09:01→21:21)
[2016-07-22] MEDS: THIAMINE HCL 100 MG TAB PO SCH (09:01)
[2016-07-22] MEDS: HEPARIN SODIUM - SQ 10,000 UNITS/ML VIAL SQ SCH ×2 (09:01→21:20)
--- NOTE | 2016-07-22 12:32 | HHI.IDPN ---
Subjective Subjective Remarks ID COVERAGE Notes reviewed Afebrile Has intermittent confusion Clinically doing well Tolerating high dose Diflucan LFT ok Has PICC 06/22 Last (+) CSF C/S from 06/12 CSF C/S 06/16, 06/23 and 06/30 and 1/2 negative EVD got pulled Jul 08 is a 55 y/o CM with AVM S/P coiling. On Rx for Hermila ventriculitis Antibiotics Diflucan po Lines PICC 06/22 Past Medical History AVM s/p coil Allergies: Coded Allergies: Oxycodone (Unverified Allergy, Intermediate, ITCHY, 01/16/16) Objective . Vital Signs Date Time Temp Pulse Resp B/P Pulse Ox O2 Delivery O2 Flow Rate FiO2 07/22/16 12:27 96.8 69 16 120/81 100 07/22/16 09:32 95 21 07/22/16 09:22 98.3 73 16 128/83 98 07/22/16 04:00 97.9 71 18 122/76 98 07/22/16 00:00 98.7 71 18 103/69 97 07/21/16 20:00 97.0 76 16 122/78 98 07/21/16 17:42 97.5 97 16 134/95 65 07/21/16 12:44 97.5 91 16 134/95 95 07/21/16 07/21/16 07/22/16 15:00 23:00 07:00 Intake Total 1060 ml 1075 ml Output Total 1 ml 300 ml Balance 1060 ml 1074 ml -300 ml Intake Oral 360 ml 240 ml Tube Feeding 600 ml 735 ml Other 100 ml 100 ml Output Urine Total 300 ml Stool Total 1 ml # Voids 1 3 # Bowel Movements 1 . Laboratory Tests Test 07/22/16 06:15 White Blood Count 6.0 TH/MM3 Red Blood Count 3.88 MIL/MM3 Hemoglobin 11.5 GM/DL Hematocrit 34.1 % Mean Corpuscular Volume 88.0 FL Mean Corpuscular Hemoglobin 29.6 PG Mean Corpuscular Hemoglobin 33.6 % Concent Red Cell Distribution Width 14.1 % Platelet Count 259 TH/MM3 Mean Platelet Volume 9.0 FL Neutrophils (%) (Auto) 63.4 % Lymphocytes (%) (Auto) 23.0 % Monocytes (%) (Auto) 10.3 % Eosinophils (%) (Auto) 2.7 % Basophils (%) (Auto) 0.6 % Neutrophils # (Auto) 3.8 TH/MM3 Lymphocytes # (Auto) 1.4 TH/MM3 Monocytes # (Auto) 0.6 TH/MM3 Eosinophils # (Auto) 0.2 TH/MM3 Basophils # (Auto) 0.0 TH/MM3 CBC Comment DIFF FINAL Differential Comment Laboratory Tests Test 07/22/16 06:15 Total Bilirubin 0.1 MG/DL Direct Bilirubin LESS THAN 0.1 MG/DL Indirect Bilirubin 0.0 MG/DL Aspartate Amino Transf 11 U/L (AST/SGOT) Alanine Aminotransferase 29 U/L (ALT/SGPT) Alkaline Phosphatase 104 U/L Total Protein 6.8 GM/DL Albumin 3.1 GM/DL Imaging Lower Extremity Ultrasound 07/05/16 0000 Signed Impressions: Service Date/Time: Tuesday, July 05, 2016 11:28 - CONCLUSION: Normal examination. Jese Malik MD Head CT 07/04/16 0600 Signed Impressions: Service Date/Time: Monday, July 04, 2016 04:27 - CONCLUSION: 1. Postoperative changes in the left cerebellum with multiple coils again seen. 2. The fluid collection in the postoperative bed has increased in size now measuring 7.0 x 4.2 cm. 3. The ventricles are mildly dilated when compared to previous study. 4. Right frontal ventriculostomy catheter is unchanged in position. Altaf Alfaro MD Abdomen X-Ray 07/01/16 0000 Signed Impressions: Service Date/Time: Friday, July 01, 2016 17:33 - CONCLUSION: Benign abdomen. Probable PEG tube in place Don López MD Chest X-Ray 06/22/16 0000 Signed Impressions: Service Date/Time: Wednesday, June 22, 2016 12:54 - CONCLUSION: No acute cardiopulmonary disease identified. Tommy Ramirez MD ADDENDUM: There is a right arm PICC appropriately positioned, tip at the atriocaval junction. Brian Hu MD Head CT 06/10/16 0600 Signed Impressions: Service Date/Time: Friday, June 10, 2016 05:01 - CONCLUSION: 1. 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 Locules of air within the fluid are decreasing since June 08. Right frontal ventriculostomy tube remains present with stable ventricular size. No hydrocephalus. Kirk Cortes MD Physical Exam GENERAL: Awake and alert, NAD SKIN: No rashes. HEENT: pink conjunctiva, no icterus. Moist mucosa. Sutires on scalp, clean no evidence of infection NECK: Supple, nontender, neck not very supple. CARDIOVASCULAR: Regular rate and rhythm. No murmur appreciated. RESPIRATORY: Clear to auscultation. Breath sounds equal bilaterally. No wheezes , rales, or rhonchi. GASTROINTESTINAL: Abdomen soft, non-tender, nondistended. MUSCULOSKELETAL: Extremities without clubbing, cyanosis, or edema. NEUROLOGICAL: Awake, alert, responding LINE: IV line sites with no e/o infection. Assessment & Plan Remarks Hermila albicans ventriculitis. - CSF counts better - all fup C/S negative - last (+) C/S 06/12 E.faecalis bacteremia: No central lines or PIVs. Treated. Repeat BCX negative. SIRS/Sepsis now controlled since Vanco IV started. AVM was transferred to [facility] for further treatment of the AVM by embolization followed by suboccipital craniotomy for hematoma evacuation and AVM resection. CSF leak and hydrocephalus s/p Rt sima hole and Ventriculostomy catheter placement 06/03/2016. Recs: Continue Diflucan po, high dose End date Aug 07 - about 4 weeks of oral antifungal rx Monitor progress OK to remove PICC D/W Matilde Diaz MD Jul 22, 2016 12:32
[2016-07-23 00:33] VITALS: BP 138/76; PULSE 80; RESP 17; TEMP 98.3; O2SAT 99
[2016-07-23] MEDS: CHLORHEXIDINE GLUCONATE 2 % 1 PACK (2 CLOTHS) TOP SCH (04:00)
[2016-07-23 04:31] VITALS: BP 118/71; PULSE 74; RESP 18; TEMP 96.7; O2SAT 99
[2016-07-23] MEDS: FREE WATER PEG SCH ×3 (06:00→18:00)
[2016-07-23 08:00] VITALS: BP 136/86; PULSE 75; RESP 18; TEMP 97.6; O2SAT 95
[2016-07-23] MEDS: SODIUM CHLORIDE 0.9% FLUSH 5 ML FLUSH IV FLUSH SCH ×2 (09:00→20:58)
[2016-07-23] MEDS: FLUCONAZOLE 200 MG TAB PO SCH (10:23)
[2016-07-23] MEDS: QUEtiapine FUMARATE 25 MG TAB PO SCH ×2 (10:23→20:57)
[2016-07-23] MEDS: levETIRAcetam 500 MG TAB PO SCH ×2 (10:23→20:57)
[2016-07-23] MEDS: HEPARIN SODIUM - SQ 10,000 UNITS/ML VIAL SQ SCH ×2 (10:23→20:58)
[2016-07-23] MEDS: METOCLOPRAMIDE HCL 10 MG TAB PO SCH ×3 (10:24→20:57)
[2016-07-23] MEDS: FAMOTIDINE 20 MG TAB NG SCH ×2 (10:24→20:58)
[2016-07-23] MEDS: METOPROLOL TARTRATE 25 MG TAB PO SCH ×2 (10:24→20:58)
[2016-07-23] MEDS: THIAMINE HCL 100 MG TAB PO SCH (10:24)
[2016-07-23] MEDS: POLYETHYLENE GLYCOL 17 GM PKG PO SCH ×2 (10:25→20:00)
--- NOTE | 2016-07-23 11:40 | HHI.PR ---
Subjective Remarks no complains of headache, nausea or vomiting feels "great" Objective Vitals Vital Signs Date Time Temp Pulse Resp B/P Pulse Ox O2 Delivery O2 Flow Rate FiO2 07/23/16 08:00 97.6 75 18 136/86 95 07/23/16 04:31 96.7 74 18 118/71 99 07/23/16 00:33 98.3 80 17 138/76 99 07/22/16 21:10 97.9 99 19 115/85 99 07/22/16 16:35 97.0 72 16 140/80 94 07/22/16 12:27 96.8 69 16 120/81 100 I/O 07/22/16 07/22/16 07/22/16 07/23/16 07/23/16 07/23/16 07:00 15:00 23:00 07:00 15:00 23:00 Intake Total 617 ml 997 ml 713 ml Output Total 300 ml Balance -300 ml 617 ml 997 ml 713 ml Intake Oral 100 ml Tube Feeding 567 ml 647 ml 513 ml Other 50 ml 250 ml 200 ml Output Urine Total 300 ml # Voids 1 3 # Bowel Movements 1 Result Diagram: 07/22/16 0615 Objective Remarks awake and alert, oriented x 3, speech clear pupils equal no facial asymmetry lungs clear regular rhythm abdomen soft, PEG in place extremities no edema 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 LE strength equal Procedures Right frontal Tommy hole with placement of a ventriculostomy catheter Line: PICC Side: Right Location: Antecubital A/P Problem List: (1) Cerebellar hemorrhage ICD Code: I61.4 Status: Acute (2) AVM (arteriovenous malformation) brain ICD Code: Q28.2 Status: Acute (3) Encephalopathy, traumatic ICD Code: F07.81 Status: Acute (4) UTI (urinary tract infection) ICD Code: N39.0 Status: Acute (5) Agitation ICD Code: R45.1 Status: Acute Assessment and Plan Subarachnoid hemorrhage 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 - status post AVM embolization at [facility] followed by suboccipital craniotomy for hematoma evacuation and AVM resection - Keppra 500 mg twice a day for seizure prophylaxis - Strict BP control -neurosurgery signed off -continue rehab efforts -cognitive therapy ongoing CSF leak - repaired - no need for OPTICAL COATING TECHNICIAN shunt at this time per NSGY - Continue Seroquel Hypertension - Metoprolol 25 mg every 12 hours - continue Telemetry Acute protein calorie malnutritionmild - Continue Jevity 1.5 goal 50 cc an hour - mechanical soft diet - advance to regular as tolerated- will advance - Colace Senokot for bowel regimen has been held due to multiple bowel movements - Pepcid for GI prophylaxis - Continue Reglan for prokinetic agent Normocytic anemia - H&H stable Hermila Ventriculitis - post intraventricular Amphotericin B administration. Last dose 06/30 - right ventriculostomy 06/03, replaced 06/12 - on po Dilfucan 800 mg daily- end date 08/07/16 per ID recommendations.- Dr. Coulter - no growth on a sample 06/23 - repeat CSF 06/30/2016 and 07/07/2016 no growth Enterococcus Bacteremia - Completed course of Vanc IV 06/24 GI Prophylaxis Pepcid 20 mg twice a day: DVT Prophylaxis - SCDs - Heparin subQ Discharge Planning needs placement. Problem Qualifiers (1) Cerebellar hemorrhage: Qualified Code: I61.4 - Nontraumatic intracerebral hemorrhage of cerebellum, unspecified laterality (2) UTI (urinary tract infection): Jeison Neal MD Jul 23, 2016 11:40
[2016-07-23 12:21] VITALS: BP 135/83; PULSE 63; RESP 17; TEMP 96.2; O2SAT 98
[2016-07-23 16:00] VITALS: BP 142/83; PULSE 81; RESP 18; TEMP 97.7; O2SAT 95
[2016-07-23 20:12] VITALS: BP 130/91; PULSE 91; RESP 22; TEMP 98.2; O2SAT 97
[2016-07-24 00:12] VITALS: BP 154/92; PULSE 87; RESP 20; TEMP 98.5; O2SAT 97
[2016-07-24 04:56] VITALS: BP 145/91; PULSE 82; RESP 20; TEMP 98.4; O2SAT 95
[2016-07-24 08:16] VITALS: BP 126/86; PULSE 83; RESP 20; TEMP 96.9; O2SAT 97
[2016-07-24] MEDS: FLUCONAZOLE 200 MG TAB PO SCH (08:50)
[2016-07-24] MEDS: FAMOTIDINE 20 MG TAB NG SCH ×2 (08:50→23:23)
[2016-07-24] MEDS: THIAMINE HCL 100 MG TAB PO SCH (08:50)
[2016-07-24] MEDS: levETIRAcetam 500 MG TAB PO SCH ×2 (08:50→23:23)
[2016-07-24] MEDS: POLYETHYLENE GLYCOL 17 GM PKG PO SCH ×2 (08:51→23:22)
[2016-07-24] MEDS: METOPROLOL TARTRATE 25 MG TAB PO SCH ×2 (08:51→23:23)
[2016-07-24] MEDS: QUEtiapine FUMARATE 25 MG TAB PO SCH ×2 (08:51→23:23)
[2016-07-24] MEDS: METOCLOPRAMIDE HCL 10 MG TAB PO SCH ×4 (08:51→23:23)
[2016-07-24] MEDS: SODIUM CHLORIDE 0.9% FLUSH 5 ML FLUSH IV FLUSH SCH ×2 (09:00→21:00)
[2016-07-24] MEDS: HEPARIN SODIUM - SQ 10,000 UNITS/ML VIAL SQ SCH ×2 (09:10→23:22)
--- NOTE | 2016-07-24 10:35 | HHI.PR ---
Subjective Remarks no complains- denies any pain tolerating tube feedings Objective Vitals Vital Signs Date Time Temp Pulse Resp B/P Pulse Ox O2 Delivery O2 Flow Rate FiO2 07/24/16 08:16 96.9 83 20 126/86 97 07/24/16 04:56 98.4 82 20 145/91 95 07/24/16 00:12 98.5 87 20 154/92 97 07/23/16 20:12 98.2 91 22 130/91 97 07/23/16 16:00 97.7 81 18 142/83 95 07/23/16 12:21 96.2 63 17 135/83 98 I/O 07/23/16 07/23/16 07/23/16 07/24/16 07/24/16 07/24/16 07:00 15:00 23:00 07:00 15:00 23:00 Intake Total 713 ml 240 ml 1006 ml 772 ml Balance 713 ml 240 ml 1006 ml 772 ml Intake Oral 240 ml 100 ml Tube Feeding 513 ml 806 ml 572 ml Other 200 ml 100 ml 200 ml # Voids 3 3 3 # Bowel Movements 2 Result Diagram: 07/22/16 0615 Imaging Last Impressions Head CT 07/15/16 0600 Signed Impressions: Service Date/Time: Friday, July 15, 2016 05:43 - CONCLUSION: 1. Fluid collection in the posterior soft tissues has significantly decreased in prominence. 2. Post surgical changes in the left cerebellum with previous occipital craniectomy. Altaf Alfaro MD Abdomen X-Ray 07/10/16 0937 Signed Impressions: Service Date/Time: July 09:57 - CONCLUSION: Stable nonspecific benign abdomen appearance Brian Vasquez MD Lower Extremity Ultrasound 07/05/16 0000 Signed Impressions: Service Date/Time: Tuesday, July 05, 2016 11:28 - CONCLUSION: Normal examination. Jese Malik MD Chest X-Ray 06/22/16 0000 Signed Impressions: Service Date/Time: Wednesday, June 22, 2016 12:54 - CONCLUSION: No acute cardiopulmonary disease identified. Tommy Ramirez MD ADDENDUM: There is a right arm PICC appropriately positioned, tip at the atriocaval junction. Brian Hu MD Objective Remarks awake and alert, oriented x 3, speech clear pupils equal no facial asymmetry lungs clear regular rhythm abdomen soft, PEG in place extremities no edema hand echocardiograph technician equal LE strength weak, withdraws to stimulus skin- feet very dry Procedures Right frontal [place] hole with placement of a ventriculostomy catheter Line: PICC Side: Right Location: Antecubital A/P Problem List: (1) Cerebellar hemorrhage ICD Code: I61.4 Status: Acute (2) AVM (arteriovenous malformation) brain ICD Code: Q28.2 Status: Acute (3) Encephalopathy, traumatic ICD Code: F07.81 Status: Acute (4) UTI (urinary tract infection) ICD Code: N39.0 Status: Acute (5) Agitation ICD Code: R45.1 Status: Acute Assessment and Plan Subarachnoid hemorrhage 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 followed by suboccipital craniotomy for hematoma evacuation and AVM resection - Keppra 500 mg twice a day for seizure prophylaxis - Strict BP control -neurosurgery signed off -continue rehab efforts - cognitive therapy ff/ongoing CSF leak - repaired - no need for HOSPITALITY MANAGER shunt at this time per NSGY - Continue Seroquel Hypertension - Metoprolol 25 mg every 12 hours - continue Telemetry Acute protein calorie malnutritionmild - Continue Jevity 1.5 goal 50 cc an hour - mechanical soft diet - advance to regular as tolerated- will advance - Colace Senokot for bowel regimen has been held due to multiple bowel movements - Pepcid for GI prophylaxis - Continue Reglan for prokinetic agent Normocytic anemia - H&H stable Hermila Ventriculitis - post intraventricular Amphotericin B administration. Last dose 06/30 - right ventriculostomy 06/03, replaced 06/12 - on po Dilfucan 800 mg daily- end date 08/07/16 per ID recommendations.- Dr. Coulter - no growth on a sample 06/23 - repeat CSF 06/30/2016 and 07/07/2016 no growth Enterococcus Bacteremia - Completed course of Vanc IV 06/24 GI Prophylaxis Pepcid 20 mg twice a day: DVT Prophylaxis - SCDs - Heparin subQ PT daily Discharge Planning needs placement. Problem Qualifiers (1) Cerebellar hemorrhage: Qualified Code: I61.4 - Nontraumatic intracerebral hemorrhage of cerebellum, unspecified laterality (2) UTI (urinary tract infection): Jeison Neal MD Jul 24, 2016 10:35
[2016-07-24] MEDS: FREE WATER PEG SCH ×4 (12:00→23:24)
[2016-07-24 12:55] VITALS: BP 126/85; PULSE 83; RESP 20; TEMP 97.2; O2SAT 98
[2016-07-24 16:30] VITALS: BP 128/86; PULSE 84; RESP 20; TEMP 97.4; O2SAT 97
[2016-07-24 22:15] VITALS: BP 126/89; PULSE 88; RESP 16; TEMP 97.1; O2SAT 98
[2016-07-24] MEDS: LACTIC ACID (AMMONIUM LACTATE) 12% LOTION 225 GM BTL TOPICAL SCH (22:45)
[2016-07-25] VITALS (7 sets, daily range): BP systolic 74–128; BP diastolic 59–82; PULSE 73–88; RESP 16–19; TEMP 96.9–98.1; O2SAT 94–98
[2016-07-25] MEDS: CHLORHEXIDINE GLUCONATE 2 % 1 PACK (2 CLOTHS) TOP SCH (03:15)
[2016-07-25] MEDS: FREE WATER PEG SCH ×3 (06:00→17:48)
[2016-07-25] MEDS: METOCLOPRAMIDE HCL 10 MG TAB PO SCH ×4 (06:13→21:24)
[2016-07-25] MEDS: SODIUM CHLORIDE 0.9% FLUSH 5 ML FLUSH IV FLUSH SCH ×2 (09:00→21:23)
--- NOTE | 2016-07-25 09:31 | HHI.PR ---
Subjective Remarks would like some Ensure with julio flavor no pain complains, no headaches so far still max assist with regards to OT Objective Vitals Vital Signs Date Time Temp Pulse Resp B/P Pulse Ox O2 Delivery O2 Flow Rate FiO2 07/25/16 09:02 98.1 81 18 126/82 96 07/25/16 05:45 97.4 73 16 121/82 98 07/25/16 01:45 98.0 73 19 120/80 97 07/24/16 22:15 97.1 88 16 126/89 98 07/24/16 16:30 97.4 84 20 128/86 97 07/24/16 12:55 97.2 83 20 126/85 98 I/O 07/24/16 07/24/16 07/24/16 07/25/16 07/25/16 07/25/16 07:00 15:00 23:00 07:00 15:00 23:00 Intake Total 772 ml 120 ml 100 ml 481 ml Balance 772 ml 120 ml 100 ml 481 ml Intake Oral 120 ml 100 ml 0 ml Tube Feeding 572 ml 381 ml Other 200 ml 100 ml # Voids 3 5 1 3 # Bowel Movements 0 0 Result Diagram: 07/22/16 0615 Imaging Last Impressions Head CT 07/15/16 0600 Signed Impressions: Service Date/Time: Friday, July 15, 2016 05:43 - CONCLUSION: 1. Fluid collection in the posterior soft tissues has significantly decreased in prominence. 2. Post surgical changes in the left cerebellum with previous occipital craniectomy. Altaf Alfaro MD Abdomen X-Ray 07/10/16 0937 Signed Impressions: Service Date/Time: July 09:57 - CONCLUSION: Stable nonspecific benign abdomen appearance Brian Vasquez MD Lower Extremity Ultrasound 07/05/16 0000 Signed Impressions: Service Date/Time: Tuesday, July 05, 2016 11:28 - CONCLUSION: Normal examination. Jese Malik MD Chest X-Ray 06/22/16 0000 Signed Impressions: Service Date/Time: Wednesday, June 22, 2016 12:54 - CONCLUSION: No acute cardiopulmonary disease identified. Tommy Ramirez MD ADDENDUM: There is a right arm PICC appropriately positioned, tip at the atriocaval junction. 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 LE strength weak, withdraws to stimulus skin- feet very dry, good peripheral pulses Procedures Right frontal [place] hole with placement of a ventriculostomy catheter Line: PICC Side: Right Location: Antecubital A/P Problem List: (1) Cerebellar hemorrhage ICD Code: I61.4 Status: Acute (2) AVM (arteriovenous malformation) brain ICD Code: Q28.2 Status: Acute (3) Encephalopathy, traumatic ICD Code: F07.81 Status: Acute (4) UTI (urinary tract infection) ICD Code: N39.0 Status: Acute (5) Agitation ICD Code: R45.1 Status: Acute Assessment and Plan Subarachnoid hemorrhage due to pial AVM CSF leak - repaired Severe cognitive deficits - status post AVM embolization at [facility] followed by suboccipital craniotomy for hematoma evacuation and AVM resection - Keppra 500 mg twice a day for seizure prophylaxis -neurosurgery signed off -continue rehab efforts - no need for BANK PRESIDENT shunt at this time per NSGY - Continue Seroquel - cognitive therapy ongoing Hypertension- controlled - Metoprolol 25 mg every 12 hours - continue Telemetry Acute protein calorie malnutritionmild - Continue Jevity 1.5 goal 50 cc an hour - mechanical soft diet - advance to regular as tolerated- - Colace Senokot for bowel regimen has been held due to multiple bowel movements - Pepcid for GI prophylaxis - Continue Reglan for prokinetic agent - add ensure. reconsult dietary Normocytic anemia - H&H stable Hermila Ventriculitis - post intraventricular Amphotericin B administration. Last dose 06/30 - right ventriculostomy 06/03, replaced 06/12 - no growth on a sample 06/23. - repeat CSF 06/30/2016 and 07/07/2016 no growth- - on po Dilfucan 800 mg daily-- STOP date 08/07/16 per ID recommendations.- Dr. Coulter Enterococcus Bacteremia - Completed course of Vanc IV 06/24 GI Prophylaxis Pepcid 20 mg twice a day: DVT Prophylaxis - SCDs - Heparin subQ Lachydrin for dry skin- feet PT daily/OT daily . transfer to [facility]- definitely needs skilled placement- no way until payor source comes through- SSI pending there is no way we can get him home health care either- no payor source Discharge Planning d/w CM- SSI pending- he has a POA- patient needs placement Problem Qualifiers (1) Cerebellar hemorrhage: Qualified Code: I61.4 - Nontraumatic intracerebral hemorrhage of cerebellum, unspecified laterality (2) UTI (urinary tract infection): Jeison Neal MD Jul 25, 2016 09:31
[2016-07-25] MEDS: POLYETHYLENE GLYCOL 17 GM PKG PO SCH ×2 (10:08→21:23)
[2016-07-25] MEDS: FAMOTIDINE 20 MG TAB NG SCH ×2 (10:09→21:23)
[2016-07-25] MEDS: HEPARIN SODIUM - SQ 10,000 UNITS/ML VIAL SQ SCH ×2 (10:09→21:24)
[2016-07-25] MEDS: levETIRAcetam 500 MG TAB PO SCH ×2 (10:09→21:23)
[2016-07-25] MEDS: METOPROLOL TARTRATE 25 MG TAB PO SCH ×2 (10:09→21:24)
[2016-07-25] MEDS: QUEtiapine FUMARATE 25 MG TAB PO SCH ×2 (10:09→21:24)
[2016-07-25] MEDS: THIAMINE HCL 100 MG TAB PO SCH (10:09)
[2016-07-25] MEDS: FLUCONAZOLE 200 MG TAB PO SCH (10:10)
[2016-07-25] MEDS: LACTIC ACID (AMMONIUM LACTATE) 12% LOTION 225 GM BTL TOPICAL SCH ×2 (10:10→21:25)
--- NOTE | 2016-07-25 15:22 | HHI.PR ---
Addendum to Inpatient Note Addendum Reason: Additional Documentation Additional Information D/w stop date for Diflucan Will sign off please call back if any change in clinical condition or questions. Jenifer Babin MD Jul 25, 2016 15:22
[2016-07-26 00:45] VITALS: BP 125/70; PULSE 80; RESP 17; TEMP 97.7; O2SAT 98
[2016-07-26] MEDS: CHLORHEXIDINE GLUCONATE 2 % 1 PACK (2 CLOTHS) TOP SCH (04:00)
[2016-07-26 04:45] VITALS: BP 118/75; PULSE 84; RESP 17; TEMP 97; O2SAT 99
[2016-07-26] MEDS: FREE WATER PEG SCH ×5 (06:00→23:32)
[2016-07-26] MEDS: METOCLOPRAMIDE HCL 10 MG TAB PO SCH ×4 (06:07→23:12)
[2016-07-26] MEDS: POLYETHYLENE GLYCOL 17 GM PKG PO SCH ×2 (08:27→20:00)
[2016-07-26 08:38] VITALS: BP 134/90; PULSE 84; RESP 18; TEMP 96.6; O2SAT 98
[2016-07-26] MEDS: FLUCONAZOLE 200 MG TAB PO SCH (10:01)
[2016-07-26] MEDS: THIAMINE HCL 100 MG TAB PO SCH (10:01)
[2016-07-26] MEDS: FAMOTIDINE 20 MG TAB NG SCH ×2 (10:01→23:12)
[2016-07-26] MEDS: levETIRAcetam 500 MG TAB PO SCH ×2 (10:01→23:12)
[2016-07-26] MEDS: HEPARIN SODIUM - SQ 10,000 UNITS/ML VIAL SQ SCH ×2 (10:02→23:13)
[2016-07-26] MEDS: QUEtiapine FUMARATE 25 MG TAB PO SCH ×2 (10:02→23:12)
[2016-07-26] MEDS: METOPROLOL TARTRATE 25 MG TAB PO SCH ×2 (10:02→23:12)
[2016-07-26] MEDS: SODIUM CHLORIDE 0.9% FLUSH 5 ML FLUSH IV FLUSH SCH ×2 (10:03→21:00)
[2016-07-26] MEDS: LACTIC ACID (AMMONIUM LACTATE) 12% LOTION 225 GM BTL TOPICAL SCH ×2 (10:04→23:13)
--- NOTE | 2016-07-26 11:01 | HHI.PR ---
Subjective Remarks patient awake and alert, ff all commands, speaks in soft voice, oriented to person and place tolerating tube feedings cooperative on exam Objective Vitals Vital Signs Date Time Temp Pulse Resp B/P Pulse Ox O2 Delivery O2 Flow Rate FiO2 07/26/16 08:38 96.6 84 18 134/90 98 07/26/16 04:45 97.0 84 17 118/75 99 07/26/16 00:45 97.7 80 17 125/70 98 07/25/16 21:00 98.0 88 19 128/69 96 07/25/16 16:09 97.9 78 18 117/74 97 07/25/16 14:15 102/61 07/25/16 13:33 96.9 82 18 74/59 94 I/O 07/25/16 07/25/16 07/25/16 07/26/16 07/26/16 07/26/16 07:00 15:00 23:00 07:00 15:00 23:00 Intake Total 481 ml 290 ml 550 ml 300 ml Output Total 500 ml Balance 481 ml 290 ml 550 ml -200 ml Intake Oral 0 ml 240 ml 500 ml 300 ml Tube Feeding 381 ml Other 100 ml 50 ml 50 ml Output Urine Total 500 ml # Voids 3 4 2 2 # Bowel Movements 0 2 0 2 Result Diagram: 07/22/16 0615 Imaging Last Impressions Head CT 07/15/16 0600 Signed Impressions: Service Date/Time: Friday, July 15, 2016 05:43 - CONCLUSION: 1. Fluid collection in the posterior soft tissues has significantly decreased in prominence. 2. Post surgical changes in the left cerebellum with previous occipital craniectomy. Altaf Alfaro MD Abdomen X-Ray 07/10/16 0937 Signed Impressions: Service Date/Time: July 09:57 - CONCLUSION: Stable nonspecific benign abdomen appearance Brian Vasquez MD Lower Extremity Ultrasound 07/05/16 0000 Signed Impressions: Service Date/Time: Tuesday, July 05, 2016 11:28 - CONCLUSION: Normal examination. Jese Malik MD Chest X-Ray 06/22/16 0000 Signed Impressions: Service Date/Time: Wednesday, June 22, 2016 12:54 - CONCLUSION: No acute cardiopulmonary disease identified. Tommy Ramirez MD ADDENDUM: There is a right arm PICC appropriately positioned, tip at the atriocaval junction. Brian Hu MD Objective Remarks awake and alert, oriented x 3, speech clear and soft, ff all commands pupils equal lungs clear regular rhythm abdomen soft, PEG in place extremities no edema hand ssis architect equal LE moves all extremities-- weak good peripheral pulses Procedures Right frontal [place] hole with placement of a ventriculostomy catheter Line: PICC Side: Right Location: Antecubital A/P Problem List: (1) Cerebellar hemorrhage ICD Code: I61.4 Status: Acute (2) AVM (arteriovenous malformation) brain ICD Code: Q28.2 Status: Acute (3) Encephalopathy, traumatic ICD Code: F07.81 Status: Acute (4) UTI (urinary tract infection) ICD Code: N39.0 Status: Acute (5) Agitation ICD Code: R45.1 Status: Acute Assessment and Plan Subarachnoid hemorrhage due to pial AVM CSF leak - repaired Severe cognitive deficits - status post AVM embolization at [facility] followed by suboccipital craniotomy for hematoma evacuation and AVM resection - Keppra 500 mg twice a day for seizure prophylaxis -neurosurgery signed off -continue rehab efforts - no need for INDUSTRIAL MACHINE ASSEMBLER shunt at this time per NSGY - Continue Seroquel - cognitive therapy ongoing Hypertension- controlled - Metoprolol 25 mg every 12 hours - continue Telemetry Acute protein calorie malnutritionmild - Continue Jevity 1.5 goal 50 cc an hour - mechanical soft diet - advance to regular as tolerated- - Colace Senokot for bowel regimen has been held due to multiple bowel movements - Pepcid for GI prophylaxis - Continue Reglan for prokinetic agent - add ensure. reconsult dietary Normocytic anemia - H&H stable Hermila Ventriculitis - post intraventricular Amphotericin B administration. Last dose 06/30 - right ventriculostomy 06/03, replaced 06/12 - no growth on a sample 06/23. - repeat CSF 06/30/2016 and 07/07/2016 no growth- - on po Dilfucan 800 mg daily-- STOP date 08/07/16 per ID recommendations.- Dr. Coulter Enterococcus Bacteremia - Completed course of Vanc IV 06/24 Nutrition. -reassessed by nutrtionist 07/25- continue on jevity 1.5 tube feedings GI Prophylaxis Pepcid 20 mg twice a day: DVT Prophylaxis - SCDs - Heparin subQ Lachydrin for dry skin- feet PT daily/OT daily . transfer to [facility]- definitely needs skilled placement- no way until payor source comes through- SSI pending there is no way we can get him home health care either- no payor source Discharge Planning d/w CM- SSI pending- he has a POA- patient needs placement Problem Qualifiers (1) Cerebellar hemorrhage: Qualified Code: I61.4 - Nontraumatic intracerebral hemorrhage of cerebellum, unspecified laterality (2) UTI (urinary tract infection): Jeison Neal MD Jul 26, 2016 11:01
[2016-07-26 12:03] VITALS: BP 133/91; PULSE 80; RESP 17; TEMP 97.6; O2SAT 97
[2016-07-26 16:46] VITALS: BP 125/85; PULSE 78; RESP 18; TEMP 97.6; O2SAT 97
[2016-07-26 20:00] VITALS: BP 132/88; PULSE 85; RESP 20; TEMP 98.6; O2SAT 98
[2016-07-27] VITALS (7 sets, daily range): BP systolic 114–138; BP diastolic 75–92; PULSE 72–91; RESP 18–20; TEMP 96.1–98.4; O2SAT 94–99
[2016-07-27] MEDS: CHLORHEXIDINE GLUCONATE 2 % 1 PACK (2 CLOTHS) TOP SCH (04:00)
[2016-07-27] MEDS: FREE WATER PEG SCH ×3 (06:00→17:17)
[2016-07-27] MEDS: METOCLOPRAMIDE HCL 10 MG TAB PO SCH ×4 (07:00→20:42)
[2016-07-27] MEDS: SODIUM CHLORIDE 0.9% FLUSH 5 ML FLUSH IV FLUSH SCH ×2 (09:00→20:43)
[2016-07-27] MEDS: FLUCONAZOLE 200 MG TAB PO SCH (09:25)
[2016-07-27] MEDS: THIAMINE HCL 100 MG TAB PO SCH (09:25)
[2016-07-27] MEDS: METOPROLOL TARTRATE 25 MG TAB PO SCH ×2 (09:25→20:43)
[2016-07-27] MEDS: QUEtiapine FUMARATE 25 MG TAB PO SCH ×2 (09:25→20:43)
[2016-07-27] MEDS: levETIRAcetam 500 MG TAB PO SCH ×2 (09:25→20:43)
[2016-07-27] MEDS: HEPARIN SODIUM - SQ 10,000 UNITS/ML VIAL SQ SCH ×2 (09:26→20:44)
[2016-07-27] MEDS: FAMOTIDINE 20 MG TAB NG SCH ×2 (09:26→20:43)
[2016-07-27] MEDS: POLYETHYLENE GLYCOL 17 GM PKG PO SCH ×2 (09:26→20:42)
[2016-07-27] MEDS: LACTIC ACID (AMMONIUM LACTATE) 12% LOTION 225 GM BTL TOPICAL SCH ×2 (09:27→20:45)
--- NOTE | 2016-07-27 10:13 | HHI.PR ---
Subjective Remarks awake and alert, no pain interactive tolerating TF states appetite a little better Objective Vitals Vital Signs Date Time Temp Pulse Resp B/P Pulse Ox O2 Delivery O2 Flow Rate FiO2 07/27/16 08:00 97.3 80 20 138/91 99 07/27/16 04:06 96.7 76 20 124/81 99 07/27/16 00:21 98.4 91 18 122/92 94 07/26/16 20:00 98.6 85 20 132/88 98 07/26/16 16:46 97.6 78 18 125/85 97 07/26/16 12:03 97.6 80 17 133/91 97 I/O 07/26/16 07/26/16 07/26/16 07/27/16 07/27/16 07/27/16 07:00 15:00 23:00 07:00 15:00 23:00 Intake Total 300 ml 620 ml Output Total 500 ml Balance -200 ml 620 ml Intake Oral 300 ml 240 ml Tube Feeding 280 ml Other 100 ml Output Urine Total 500 ml # Voids 2 2 # Bowel Movements 2 2 Imaging Last Impressions Head CT 07/15/16 0600 Signed Impressions: Service Date/Time: Friday, July 15, 2016 05:43 - CONCLUSION: 1. Fluid collection in the posterior soft tissues has significantly decreased in prominence. 2. Post surgical changes in the left cerebellum with previous occipital craniectomy. Altaf Alfaro MD Abdomen X-Ray 07/10/16 0937 Signed Impressions: Service Date/Time: July 09:57 - CONCLUSION: Stable nonspecific benign abdomen appearance Brian Vasquez MD Lower Extremity Ultrasound 07/05/16 0000 Signed Impressions: Service Date/Time: Tuesday, July 05, 2016 11:28 - CONCLUSION: Normal examination. Jese Malik MD Chest X-Ray 06/22/16 0000 Signed Impressions: Service Date/Time: Wednesday, June 22, 2016 12:54 - CONCLUSION: No acute cardiopulmonary disease identified. Tommy Ramirez MD ADDENDUM: There is a right arm PICC appropriately positioned, tip at the atriocaval junction. Brian Hu MD Objective Remarks awake and alert, oriented x 3, speech clear and soft, ff all commands pupils equal lungs clear regular rhythm abdomen soft, PEG in place extremities no edema hand data center solutions architect equal LE moves all extremities-- weak good peripheral pulses Procedures Right frontal Tommy hole with placement of a ventriculostomy catheter Line: PICC Side: Right Location: Antecubital A/P Problem List: (1) Cerebellar hemorrhage ICD Code: I61.4 Status: Acute (2) AVM (arteriovenous malformation) brain ICD Code: Q28.2 Status: Acute (3) Encephalopathy, traumatic ICD Code: F07.81 Status: Acute (4) UTI (urinary tract infection) ICD Code: N39.0 Status: Acute (5) Agitation ICD Code: R45.1 Status: Acute Assessment and Plan 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 - status post AVM embolization at [facility] followed by suboccipital craniotomy for hematoma evacuation and AVM resection - Keppra 500 mg twice a day for seizure prophylaxis - Strict BP control -neurosurgery signed off -continue rehab efforts -cognitive therapy ongoing- gradually improving CSF leak - repaired - no need for BIOFUELS PLANT CONSTRUCTION WORKER shunt at this time per NSGY - Continue Seroquel Hypertension - Metoprolol 25 mg every 12 hours - continue Telemetry Acute protein calorie malnutritionmild - Continue Jevity 1.5 goal 50 cc an hour - mechanical soft diet - advance to regular as tolerated- will advance - dietitian ff along with us - Miralax 17 gm daily - Pepcid for GI prophylaxis - Continue Reglan for prokinetic agent Normocytic anemia - H&H stable Hermila Ventriculitis - post intraventricular Amphotericin B administration. Last dose 06/30 - right ventriculostomy 06/03, replaced 06/12 - on po Dilfucan 800 mg daily- end date 08/07/16 per ID recommendations.- Dr. Coulter - no growth on a sample 06/23 - repeat CSF 06/30/2016 and 07/07/2016 no growth Enterococcus Bacteremia - Completed course of Vanc IV 06/24 GI Prophylaxis Pepcid 20 mg twice a day: DVT Prophylaxis - SCDs - Heparin subQ -continue PT/cognitive efforts Discharge Planning needs placement. Problem Qualifiers (1) Cerebellar hemorrhage: Qualified Code: I61.4 - Nontraumatic intracerebral hemorrhage of cerebellum, unspecified laterality (2) UTI (urinary tract infection): Jeison Neal MD Jul 27, 2016 10:13
[2016-07-28] MEDS: CHLORHEXIDINE GLUCONATE 2 % 1 PACK (2 CLOTHS) TOP SCH (03:19)
[2016-07-28 04:00] VITALS: BP 117/78; PULSE 82; RESP 20; TEMP 96.8; O2SAT 96
[2016-07-28] MEDS: FREE WATER PEG SCH ×4 (06:00→17:01)
[2016-07-28 07:05] VITALS: BP 106/85; PULSE 80; RESP 20; TEMP 96.7; O2SAT 95
[2016-07-28] MEDS: SODIUM CHLORIDE 0.9% FLUSH 5 ML FLUSH IV FLUSH SCH ×2 (09:00→22:09)
--- NOTE | 2016-07-28 09:36 | HHI.PR ---
Subjective Remarks "Hi girlfriend" denies any pain, pleasant, tolerated tube feedings states our " food is terrible" , d/w aide- he drinks but does not eat much Objective Vitals Vital Signs Date Time Temp Pulse Resp B/P Pulse Ox O2 Delivery O2 Flow Rate FiO2 07/28/16 07:05 96.7 80 20 106/85 95 07/28/16 04:00 96.8 82 20 117/78 96 07/27/16 23:45 97.3 83 20 120/79 96 07/27/16 20:00 98.1 88 20 126/75 96 07/27/16 15:46 96.1 76 18 131/81 98 07/27/16 11:53 96.2 72 18 114/77 98 I/O 07/27/16 07/27/16 07/27/16 07/28/16 07/28/16 07/28/16 07:00 15:00 23:00 07:00 15:00 23:00 Intake Total 480 ml 1406 ml Output Total 1800 ml 300 ml Balance 480 ml -1800 ml 1106 ml Intake Oral 250 ml Tube Feeding 480 ml 1096 ml Other 60 ml Output Urine Total 1800 ml 300 ml # Voids 1 # Bowel Movements 4 1 1 Imaging Last Impressions Head CT 07/15/16 0600 Signed Impressions: Service Date/Time: Friday, July 15, 2016 05:43 - CONCLUSION: 1. Fluid collection in the posterior soft tissues has significantly decreased in prominence. 2. Post surgical changes in the left cerebellum with previous occipital craniectomy. Altaf Alfaro MD Abdomen X-Ray 07/10/16 0937 Signed Impressions: Service Date/Time: July 09:57 - CONCLUSION: Stable nonspecific benign abdomen appearance Brian Vasquez MD Lower Extremity Ultrasound 07/05/16 0000 Signed Impressions: Service Date/Time: Tuesday, July 05, 2016 11:28 - CONCLUSION: Normal examination. Jese Malik MD Chest X-Ray 06/22/16 0000 Signed Impressions: Service Date/Time: Wednesday, June 22, 2016 12:54 - CONCLUSION: No acute cardiopulmonary disease identified. Tommy Ramirez MD ADDENDUM: There is a right arm PICC appropriately positioned, tip at the atriocaval junction. Brian Hu MD Objective Remarks awake and alert, oriented x 2, speech clear and soft, ff all commands pupils equal lungs clear regular rhythm abdomen soft, PEG in place extremities no edema hand corporate affairs manager equal condom catheter inplace LE moves all extremities-- good peripheral pulses Procedures Right frontal Mobile hole with placement of a ventriculostomy catheter Line: PICC Side: Right Location: Antecubital A/P Problem List: (1) Cerebellar hemorrhage ICD Code: I61.4 Status: Acute (2) AVM (arteriovenous malformation) brain ICD Code: Q28.2 Status: Acute (3) Encephalopathy, traumatic ICD Code: F07.81 Status: Acute (4) UTI (urinary tract infection) ICD Code: N39.0 Status: Acute (5) Agitation ICD Code: R45.1 Status: Acute Assessment and Plan 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 - status post AVM embolization at [facility] followed by suboccipital craniotomy for hematoma evacuation and AVM resection - Keppra 500 mg twice a day for seizure prophylaxis - On Lopressor 50 mg po bid- good control -neurosurgery signed off -continue rehab efforts- reconsulted PT to update their assessment 07/27 -cognitive therapy ongoing- gradually improving CSF leak - repaired - no need for CREDIT MANAGER shunt at this time per NSGY - Continue Seroquel Hypertension - Metoprolol 25 mg every 12 hours - continue Telemetry Acute protein calorie malnutritionmild - Continue Jevity 1.5 goal 50 cc an hour - po intake not consistent --regular diet - dietitian ff along with us - Miralax 17 gm daily - Pepcid for GI prophylaxis - Continue Reglan for prokinetic agent - 07/28 reconsult dietary to convert TF to bolus regimen-- to allow more activity and not hooked to feeding tube pole constantly Normocytic anemia - H&H stable Hermila Ventriculitis - post intraventricular Amphotericin B administration. Last dose 06/30 - right ventriculostomy 06/03, replaced 06/12 - on po Dilfucan 800 mg daily- end date 08/07/16 per ID recommendations.- Dr. Coulter - no growth on a sample 06/23 - repeat CSF 06/30/2016 and 07/07/2016 no growth Enterococcus Bacteremia - Completed course of Vanc IV 06/24 GI Prophylaxis Pepcid 20 mg twice a day: DVT Prophylaxis - SCDs - Heparin subQ -continue PT/cognitive efforts REconsulted PT to update notes- will need these report for SNF- CM trying to get him into one Discharge Planning needs placement. Problem Qualifiers (1) Cerebellar hemorrhage: Qualified Code: I61.4 - Nontraumatic intracerebral hemorrhage of cerebellum, unspecified laterality (2) UTI (urinary tract infection): Jeison Neal MD Jul 28, 2016 09:36
[2016-07-28] MEDS: POLYETHYLENE GLYCOL 17 GM PKG PO SCH ×2 (09:59→22:09)
[2016-07-28] MEDS: METOPROLOL TARTRATE 25 MG TAB PO SCH ×2 (09:59→22:06)
[2016-07-28] MEDS: THIAMINE HCL 100 MG TAB PO SCH (09:59)
[2016-07-28] MEDS: QUEtiapine FUMARATE 25 MG TAB PO SCH ×2 (09:59→22:06)
[2016-07-28] MEDS: levETIRAcetam 500 MG TAB PO SCH ×2 (09:59→22:06)
[2016-07-28] MEDS: FAMOTIDINE 20 MG TAB NG SCH ×2 (10:00→22:08)
[2016-07-28] MEDS: METOCLOPRAMIDE HCL 10 MG TAB PO SCH ×3 (10:00→22:05)
[2016-07-28] MEDS: FLUCONAZOLE 200 MG TAB PO SCH (10:00)
[2016-07-28] MEDS: HEPARIN SODIUM - SQ 10,000 UNITS/ML VIAL SQ SCH ×2 (10:01→22:05)
[2016-07-28] MEDS: LACTIC ACID (AMMONIUM LACTATE) 12% LOTION 225 GM BTL TOPICAL SCH ×2 (10:02→22:05)
[2016-07-28 11:05] VITALS: BP 117/88; PULSE 98; RESP 20; TEMP 97.1; O2SAT 96
[2016-07-28 15:20] VITALS: BP 128/93; PULSE 81; RESP 20; TEMP 99.1; O2SAT 98
[2016-07-28 20:00] VITALS: BP 169/91; PULSE 86; RESP 18; TEMP 97.3; O2SAT 96
[2016-07-29] VITALS (7 sets, daily range): BP systolic 118–158; BP diastolic 71–92; PULSE 75–89; RESP 13–18; TEMP 96.3–99.3; O2SAT 96–99
[2016-07-29] MEDS: FREE WATER PEG SCH ×5 (00:15→23:15)
[2016-07-29] MEDS: CHLORHEXIDINE GLUCONATE 2 % 1 PACK (2 CLOTHS) TOP SCH (04:00)
[2016-07-29] MEDS: METOCLOPRAMIDE HCL 10 MG TAB PO SCH ×4 (05:14→23:08)
[2016-07-29] MEDS: POLYETHYLENE GLYCOL 17 GM PKG PO SCH ×2 (09:27→23:06)
[2016-07-29] MEDS: SODIUM CHLORIDE 0.9% FLUSH 5 ML FLUSH IV FLUSH SCH ×2 (09:28→21:00)
[2016-07-29] MEDS: HEPARIN SODIUM - SQ 10,000 UNITS/ML VIAL SQ SCH ×2 (09:29→23:09)
[2016-07-29] MEDS: levETIRAcetam 500 MG TAB PO SCH ×2 (09:29→23:06)
[2016-07-29] MEDS: METOPROLOL TARTRATE 25 MG TAB PO SCH ×2 (09:29→23:09)
[2016-07-29] MEDS: FLUCONAZOLE 200 MG TAB PO SCH (09:29)
[2016-07-29] MEDS: QUEtiapine FUMARATE 25 MG TAB PO SCH ×2 (09:29→23:08)
[2016-07-29] MEDS: FAMOTIDINE 20 MG TAB NG SCH ×2 (09:29→23:06)
[2016-07-29] MEDS: THIAMINE HCL 100 MG TAB PO SCH (09:29)
[2016-07-29] MEDS: LACTIC ACID (AMMONIUM LACTATE) 12% LOTION 225 GM BTL TOPICAL SCH ×2 (09:30→23:10)
--- NOTE | 2016-07-29 14:54 | HHI.PR ---
Subjective Remarks Patient seen this morning around 11:30 AM. Patient says he is feeling well. Denies any pain. Denies any chest pain or shortness of breath. Objective Vital Signs Date Time Temp Pulse Resp B/P Pulse Ox O2 Delivery O2 Flow Rate FiO2 07/29/16 11:30 96.5 84 18 129/90 99 07/29/16 09:00 132/77 07/29/16 07:35 96.3 75 18 154/83 98 07/29/16 04:00 97.4 80 13 130/84 97 07/29/16 00:00 99.3 75 18 118/71 97 07/28/16 20:00 97.3 86 18 169/91 96 07/28/16 15:20 99.1 81 20 128/93 98 I/O 07/28/16 07/28/16 07/28/16 07/29/16 07/29/16 07/29/16 07:00 15:00 23:00 07:00 15:00 23:00 Intake Total 1406 ml 600 ml 360 ml Output Total 300 ml 500 ml 750 ml 150 ml Balance 1106 ml 100 ml -750 ml 210 ml Intake Oral 250 ml 600 ml 360 ml Tube Feeding 1096 ml Other 60 ml Output Urine Total 300 ml 500 ml 750 ml 150 ml # Voids 2 # Bowel Movements 1 1 0 Objective Remarks GENERAL: Patient sitting up in bed. He is alert to place. Confidently tells me that it is August,. SKIN: Warm and dry. HEAD: Normocephalic. EYES: No scleral icterus. No injection or drainage. NECK: Supple, trachea midline. No JVD. CARDIOVASCULAR: Regular rate and rhythm without murmurs, gallops, or rubs. RESPIRATORY: Breath sounds equal bilaterally. No accessory muscle use. GASTROINTESTINAL: Abdomen soft, non-tender, nondistended. MUSCULOSKELETAL: No cyanosis, or edema. moves all extremities, 5 out of 5 strength bilateral upper and lower extremity is. BACK: Nontender without obvious deformity. No CVA tenderness. 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 No acute changes. Continue to monitor. //CSF leak - repaired - no need for ACCOUNTANT BUDGET shunt at this time per NSGY - Continue Seroquel -She'll need follow-up with neurosurgery at discharge. //Hypertension - Metoprolol 25 mg every 12 hours - continue Telemetry //Acute protein calorie malnutritionmild - Continue Jevity 1.5 goal 50 cc an hour - po intake not consistent --regular diet - dietitian ff along with us - Miralax 17 gm daily - Pepcid for GI prophylaxis - Continue Reglan for prokinetic agent - 07/28 reconsult dietary to convert TF to bolus regimen-- to allow more activity and not hooked to feeding tube pole constantly //Normocytic anemia - H&H stable //Hermila Ventriculitis - post intraventricular Amphotericin B administration. Last dose 06/30 - right ventriculostomy 06/03, replaced 06/12 - on po Dilfucan 800 mg daily- end date 08/07/16 per ID recommendations.- Dr. Coulter - no growth on a sample 06/23 - repeat CSF 06/30/2016 and 07/07/2016 no growth -Continue to monitor for possible recurrence. //Enterococcus Bacteremia. Resolved. - Completed course of Vanc IV 06/24 //GI Prophylaxis Continue Pepcid 20 mg twice a day: //DVT Prophylaxis - SCDs - Continue Heparin subQ -continue PT/cognitive efforts Discharge Planning Physical therapy following. Appreciate assistance Difficult discharge. Insurance pending. Appreciate case management assistance. Darrion Méndez MD Jul 29, 2016 14:54
[2016-07-30 01:00] VITALS: BP 141/70; PULSE 78; RESP 20; TEMP 98.2; O2SAT 98
[2016-07-30 04:00] VITALS: BP 118/66; PULSE 80; RESP 18; TEMP 98.3; O2SAT 96
[2016-07-30] MEDS: CHLORHEXIDINE GLUCONATE 2 % 1 PACK (2 CLOTHS) TOP SCH (04:00)
[2016-07-30] MEDS: FREE WATER PEG SCH ×3 (06:00→16:25)
[2016-07-30] MEDS: METOCLOPRAMIDE HCL 10 MG TAB PO SCH ×4 (06:45→20:37)
[2016-07-30 07:53] VITALS: BP 107/67; PULSE 83; RESP 20; TEMP 97.4; O2SAT 97
[2016-07-30] MEDS: POLYETHYLENE GLYCOL 17 GM PKG PO SCH ×2 (08:00→20:00)
[2016-07-30] MEDS: FLUCONAZOLE 200 MG TAB PO SCH (09:00)
[2016-07-30] MEDS: levETIRAcetam 500 MG TAB PO SCH ×2 (09:00→20:36)
[2016-07-30] MEDS: THIAMINE HCL 100 MG TAB PO SCH (09:00)
[2016-07-30] MEDS: SODIUM CHLORIDE 0.9% FLUSH 5 ML FLUSH IV FLUSH SCH ×2 (09:00→20:37)
[2016-07-30] MEDS: QUEtiapine FUMARATE 25 MG TAB PO SCH ×2 (09:00→20:36)
[2016-07-30] MEDS: LACTIC ACID (AMMONIUM LACTATE) 12% LOTION 225 GM BTL TOPICAL SCH ×2 (09:00→20:37)
[2016-07-30] MEDS: METOPROLOL TARTRATE 25 MG TAB PO SCH ×2 (09:00→20:36)
[2016-07-30] MEDS: HEPARIN SODIUM - SQ 10,000 UNITS/ML VIAL SQ SCH ×2 (09:00→20:36)
[2016-07-30] MEDS: FAMOTIDINE 20 MG TAB NG SCH ×2 (09:00→20:37)
[2016-07-30 10:13] LABS: AUTOMATED NEUTROPHIL # 2.8 TH/MM3 (1.8-7.7); BASOPHIL # 0.1 TH/MM3 (0-0.2); EOSINOPHIL # 0.1 TH/MM3 (0-0.4); EOSINOPHIL % 1.6 % (0.0-4.0); HEMATOCRIT 38.1 % (39.0-51.0); HEMO FLAGS DIFF FINAL; LYMPH % 35.2 % (9.0-44.0); LYMPHOCYTE # 1.8 TH/MM3 (1.0-4.8); MEAN CELL VOLUME 89.1 FL (80.0-100.0); MEAN CORPUSCULAR HEMOGLOBIN 29.6 PG (27.0-34.0); MEAN CORPUSCULAR HGB CONC 33.2 % (32.0-36.0); NEUT % 55.2 % (16.0-70.0); PLATELET COUNT 264 TH/MM3 (150-450); RED BLOOD COUNT 4.28 MIL/MM3 (4.50-5.90); RED CELL DISTRIBUTION WIDTH 14.5 % (11.6-17.2); WHITE BLOOD COUNT 5.2 TH/MM3 (4.0-11.0)
[2016-07-30 10:49] LABS: BICARBONATE 31.2 MEQ/L (21.0-32.0)
[2016-07-30 12:23] VITALS: BP 119/91; PULSE 108; RESP 18; TEMP 96.7; O2SAT 97
[2016-07-30 16:30] VITALS: BP 121/78; PULSE 87; RESP 18; TEMP 97.7; O2SAT 97
[2016-07-30 20:31] VITALS: BP 116/83; PULSE 87; RESP 20; TEMP 97.4; O2SAT 97
--- NOTE | 2016-07-30 21:48 | HHI.PR ---
Subjective Remarks Patient seen this morning around 11 AM. Sitting up in chair at nurses station. He denies any pain. Denies any chest pain or shortness of breath. He indicates that he is feeling well. No acute issues per nursing. Objective Vital Signs Date Time Temp Pulse Resp B/P Pulse Ox O2 Delivery O2 Flow Rate FiO2 07/30/16 20:31 97.4 87 20 116/83 97 07/30/16 16:30 97.7 87 18 121/78 97 07/30/16 12:23 96.7 108 18 119/91 97 07/30/16 07:53 97.4 83 20 107/67 97 07/30/16 04:00 98.3 80 18 118/66 96 07/30/16 01:00 98.2 78 20 141/70 98 I/O 07/29/16 07/29/16 07/29/16 07/30/16 07/30/16 07/30/16 07:00 15:00 23:00 07:00 15:00 23:00 Intake Total 410 ml 50 ml 705 ml 240 ml Output Total 150 ml Balance 260 ml 50 ml 705 ml 240 ml Intake Oral 360 ml 240 ml Tube Feeding 605 ml Other 50 ml 50 ml 100 ml Output Urine Total 150 ml # Voids 1 3 3 # Bowel Movements 0 1 1 1 Result Diagram: 07/30/1653 07/30/1653 Objective Remarks GENERAL: Patient sitting at nursing station. He is alert. oriented to place, not to date. SKIN: Warm and dry. HEAD: Normocephalic. EYES: No scleral icterus. No injection or drainage. NECK: Supple, trachea midline. No JVD. CARDIOVASCULAR: Regular rate and rhythm without murmurs, gallops, or rubs. RESPIRATORY: Breath sounds equal bilaterally. No accessory muscle use. GASTROINTESTINAL: Abdomen soft, non-tender, nondistended. MUSCULOSKELETAL: No cyanosis, or edema. moves all extremities, 5 out of 5 strength bilateral upper and lower extremities BACK: Nontender without obvious deformity. No CVA tenderness. 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 Again with no acute changes. Continue to monitor. //CSF leak - repaired - no need for FABRICATION LEAD shunt at this time per NSGY - Continue Seroquel -She'll need follow-up with neurosurgery at discharge. //Hypertension - Metoprolol 25 mg every 12 hours - continue Telemetry //Acute protein calorie malnutritionmild - Continue Jevity 1.5 goal 50 cc an hour - po intake not consistent --regular diet - dietitian ff along with us - Miralax 17 gm daily - Pepcid for GI prophylaxis - Continue Reglan for prokinetic agent - 07/28 reconsult dietary to convert TF to bolus regimen-- to allow more activity and not hooked to feeding tube pole constantly 125. Order bolus feeding Jevity 1.5. 360 mL every 6 hours-free water flushes increased to 100 mL every 6 hours staggered //Normocytic anemia - H&H stable //Hermila Ventriculitis - post intraventricular Amphotericin B administration. Last dose 06/30 - right ventriculostomy 06/03, replaced 06/12 - on po Dilfucan 800 mg daily- end date 08/07/16 per ID recommendations.- Dr. Coulter - no growth on a sample 06/23 - repeat CSF 06/30/2016 and 07/07/2016 no growth -Continue to monitor for possible recurrence. //Enterococcus Bacteremia. Resolved. - Completed course of Vanc IV 06/24 //GI Prophylaxis Continue Pepcid 20 mg twice a day: //DVT Prophylaxis - SCDs - Continue Heparin subQ -continue PT/cognitive efforts Discharge Planning Physical therapy following. Appreciate assistance Difficult discharge. Insurance pending. Appreciate case management assistance. Darrion Méndez MD Jul 30, 2016 21:48
[2016-07-31 00:12] VITALS: BP 134/79; PULSE 76; RESP 21; TEMP 98; O2SAT 97
[2016-07-31] MEDS: CHLORHEXIDINE GLUCONATE 2 % 1 PACK (2 CLOTHS) TOP SCH (04:00)
[2016-07-31 04:36] VITALS: BP 123/73; PULSE 75; RESP 20; TEMP 97.6; O2SAT 98
[2016-07-31] MEDS: METOCLOPRAMIDE HCL 10 MG TAB PO SCH ×4 (06:21→21:14)
[2016-07-31 07:41] LABS: AUTOMATED NEUTROPHIL # 3.9 TH/MM3 (1.8-7.7); BASOPHIL % 0.5 % (0.0-2.0); EOSINOPHIL # 0.1 TH/MM3 (0-0.4); EOSINOPHIL % 1.9 % (0.0-4.0); HEMATOCRIT 35.1 % (39.0-51.0); HEMO FLAGS DIFF FINAL; LYMPH % 21.4 % (9.0-44.0); LYMPHOCYTE # 1.3 TH/MM3 (1.0-4.8); MEAN CORPUSCULAR HEMOGLOBIN 29.5 PG (27.0-34.0); MEAN CORPUSCULAR HGB CONC 33.2 % (32.0-36.0); MONO % 10.9 % (0.0-8.0); NEUT % 65.3 % (16.0-70.0); PLATELET COUNT 230 TH/MM3 (150-450); RED BLOOD COUNT 3.94 MIL/MM3 (4.50-5.90)
[2016-07-31] MEDS: POLYETHYLENE GLYCOL 17 GM PKG PO SCH ×2 (08:00→20:00)
[2016-07-31 08:13] LABS: BICARBONATE 34.5 MEQ/L (21.0-32.0); POTASSIUM 3.6 MEQ/L (3.5-5.1)
[2016-07-31 08:36] VITALS: BP 132/91; PULSE 84; RESP 18; TEMP 95.9; O2SAT 98
[2016-07-31] MEDS: THIAMINE HCL 100 MG TAB PO SCH (09:00)
[2016-07-31] MEDS ORDERED: SODIUM CHLOR 0.9% 250 ML INJ 250 ML IV ONE (09:00)
[2016-07-31] MEDS: SODIUM CHLORIDE 0.9% FLUSH 5 ML FLUSH IV FLUSH SCH ×2 (09:00→21:00)
[2016-07-31] MEDS: levETIRAcetam 500 MG TAB PO SCH ×2 (09:59→21:14)
[2016-07-31] MEDS: QUEtiapine FUMARATE 25 MG TAB PO SCH ×2 (09:59→21:14)
[2016-07-31] MEDS: HEPARIN SODIUM - SQ 10,000 UNITS/ML VIAL SQ SCH ×2 (09:59→21:14)
[2016-07-31] MEDS: METOPROLOL TARTRATE 25 MG TAB PO SCH ×2 (09:59→21:14)
[2016-07-31] MEDS: FREE WATER PEG SCH ×3 (10:00→21:15)
[2016-07-31] MEDS: FAMOTIDINE 20 MG TAB NG SCH ×2 (10:00→21:14)
[2016-07-31] MEDS: LACTIC ACID (AMMONIUM LACTATE) 12% LOTION 225 GM BTL TOPICAL SCH ×2 (10:01→21:19)
[2016-07-31 10:29] LABS: ALT (GPT) 30 U/L (12-78); AST (GOT) 13 U/L (15-37)
[2016-07-31 10:30] LABS: ALKALINE PHOSPHATASE 93 U/L (45-117); TOTAL BILIRUBIN ADULT 0.1 MG/DL (0.2-1.0)
[2016-07-31] MEDS: FLUCONAZOLE 200 MG TAB PO SCH (11:46)
[2016-07-31 12:03] VITALS: BP 97/70; PULSE 85; RESP 18; TEMP 95.5; O2SAT 95
[2016-07-31 16:16] VITALS: BP 99/68; PULSE 85; RESP 20; TEMP 95.4; O2SAT 99
[2016-07-31 21:11] VITALS: BP 117/89; PULSE 81; RESP 18; TEMP 98; O2SAT 97
--- NOTE | 2016-07-31 22:36 | HHI.PR ---
Subjective Remarks patient seen today around 1 PM. No acute changes. Patient sleeping, wakes up for exam. Denies any pain. Objective Vital Signs Date Time Temp Pulse Resp B/P Pulse Ox O2 Delivery O2 Flow Rate FiO2 07/31/16 21:11 98.0 81 18 117/89 97 07/31/16 16:16 95.4 85 20 99/68 99 07/31/16 12:03 95.5 85 18 97/70 95 07/31/16 08:36 95.9 84 18 132/91 98 07/31/16 04:36 97.6 75 20 123/73 98 07/31/16 00:12 98.0 76 21 134/79 97 I/O 07/30/16 07/30/16 07/30/16 07/31/16 07/31/16 07/31/16 07:00 15:00 23:00 07:00 15:00 23:00 Intake Total 705 ml 240 ml 0 ml Output Total 600 ml Balance 705 ml 240 ml -600 ml Intake Oral 240 ml 0 ml Tube Feeding 605 ml Other 100 ml Output Urine Total 600 ml # Voids 3 3 1 # Bowel Movements 1 1 1 1 Result Diagram: 07/31/16 0635 07/31/16 0635 Objective Remarks GENERAL: lying in bed sleeping. He wakes up for exam.appears comfortable. SKIN: Warm and dry. HEAD: Normocephalic. EYES: No scleral icterus. No injection or drainage. NECK: Supple, trachea midline. No JVD. CARDIOVASCULAR: Regular rate and rhythm without murmurs, gallops, or rubs. RESPIRATORY: Breath sounds equal bilaterally. No accessory muscle use. GASTROINTESTINAL: Abdomen soft, non-tender, nondistended. MUSCULOSKELETAL: No cyanosis, or edema. moves all extremities, 5 out of 5 strength bilateral upper and lower extremities BACK: Nontender without obvious deformity. No CVA tenderness. 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 //CSF leak - repaired - no need for MARINE ELECTRONICS REPAIRER shunt at this time per NSGY - Continue Seroquel -She'll need follow-up with neurosurgery at discharge. //Hypertension - Metoprolol 25 mg every 12 hours - continue Telemetry //Acute protein calorie malnutritionmild - Continue Jevity 1.5 goal 50 cc an hour - po intake not consistent --regular diet - dietitian ff along with us - Miralax 17 gm daily - Pepcid for GI prophylaxis - Continue Reglan for prokinetic agent - 07/28 reconsult dietary to convert TF to bolus regimen-- to allow more activity and not hooked to feeding tube pole constantly 07/30. Order bolus feeding Jevity 1.5. 360 mL every 6 hours-free water flushes increased to 100 mL every 6 hours staggered -07/31. Increased BUN. Increase free water flushes to 150 mL every 6 hours. //Normocytic anemia - H&H stable //Hermila Ventriculitis - post intraventricular Amphotericin B administration. Last dose 06/30 - right ventriculostomy 06/03, replaced 06/12 - on po Dilfucan 800 mg daily- end date 08/07/16 per ID recommendations.- Dr. Coulter - no growth on a sample 06/23 - repeat CSF 06/30/2016 and 07/07/2016 no growth -Continue to monitor for possible recurrence. = LFTs stable. Continue Diflucan. //Enterococcus Bacteremia. Resolved. - Completed course of Vanc IV 06/24 //GI Prophylaxis Continue Pepcid 20 mg twice a day: //DVT Prophylaxis - SCDs - Continue Heparin subQ -continue PT/cognitive efforts Discharge Planning Physical therapy following. Appreciate assistance Difficult discharge. Insurance pending. Appreciate case management assistance. Darrion Méndez MD Jul 31, 2016 22:36
[2016-08-01] VITALS (7 sets, daily range): BP systolic 104–129; BP diastolic 70–82; PULSE 55–93; RESP 16–18; TEMP 96.6–97.9; O2SAT 92–99
[2016-08-01] MEDS: CHLORHEXIDINE GLUCONATE 2 % 1 PACK (2 CLOTHS) TOP SCH (03:37)
[2016-08-01] MEDS: FREE WATER PEG SCH ×4 (04:00→20:49)
[2016-08-01] MEDS: METOCLOPRAMIDE HCL 10 MG TAB PO SCH ×4 (05:56→20:45)
[2016-08-01] MEDS: POLYETHYLENE GLYCOL 17 GM PKG PO SCH ×2 (08:00→20:00)
[2016-08-01 08:41] LABS: AUTOMATED NEUTROPHIL # 4.3 TH/MM3 (1.8-7.7); BASOPHIL % 0.5 % (0.0-2.0); EOSINOPHIL # 0.1 TH/MM3 (0-0.4); EOSINOPHIL % 1.5 % (0.0-4.0); HEMATOCRIT 34.1 % (39.0-51.0); HEMO FLAGS DIFF FINAL; LYMPH % 22.8 % (9.0-44.0); LYMPHOCYTE # 1.4 TH/MM3 (1.0-4.8); MEAN CELL VOLUME 87.9 FL (80.0-100.0); MEAN CORPUSCULAR HGB CONC 34.1 % (32.0-36.0); MONO % 8.4 % (0.0-8.0); NEUT % 66.8 % (16.0-70.0); PLATELET COUNT 218 TH/MM3 (150-450); RED BLOOD COUNT 3.88 MIL/MM3 (4.50-5.90); WHITE BLOOD COUNT 6.4 TH/MM3 (4.0-11.0)
[2016-08-01] MEDS: SODIUM CHLORIDE 0.9% FLUSH 5 ML FLUSH IV FLUSH SCH ×2 (08:52→20:45)
[2016-08-01] MEDS: METOPROLOL TARTRATE 25 MG TAB PO SCH ×2 (08:54→20:44)
[2016-08-01 08:59] LABS: BICARBONATE 34.1 MEQ/L (21.0-32.0)
[2016-08-01] MEDS: LACTIC ACID (AMMONIUM LACTATE) 12% LOTION 225 GM BTL TOPICAL SCH ×2 (09:14→20:45)
[2016-08-01] MEDS: FAMOTIDINE 20 MG TAB NG SCH ×2 (09:14→20:45)
[2016-08-01] MEDS: THIAMINE HCL 100 MG TAB PO SCH (09:14)
[2016-08-01] MEDS: QUEtiapine FUMARATE 25 MG TAB PO SCH ×2 (09:14→20:44)
[2016-08-01] MEDS: FLUCONAZOLE 200 MG TAB PO SCH (09:14)
[2016-08-01] MEDS: levETIRAcetam 500 MG TAB PO SCH ×2 (09:14→20:44)
[2016-08-01] MEDS: HEPARIN SODIUM - SQ 10,000 UNITS/ML VIAL SQ SCH ×2 (09:15→20:45)
--- NOTE | 2016-08-01 11:33 | HHI.IDPN ---
Note Infectious Disease Note Chart reviewed Checked LFTs normal Continue Diflucan stop date in chart. Will sign off please call back if any change in clinical condition or questions. Jenifer Babin MD Aug 01, 2016 11:33
--- NOTE | 2016-08-01 15:47 | RADRPT ---
EXAM DATE/TIME: 08/01/2016 15:10 [place] COMPARISON: No previous studies available for comparison. INDICATIONS : Patient complains of left shoulder pain. No known injury. MEDICAL HISTORY : None. SURGICAL HISTORY : None. ENCOUNTER: Initial ACUITY: 1 day PAIN SCORE: Non-responsive. LOCATION: Left Shoulder FINDINGS: Two view examination of the left shoulder demonstrates no evidence of fracture or dislocation. The g lenohumeral and acromioclavicular joints are maintained. Bony mineralization is normal. CONCLUSION: Unremarkable limited examination of the left shoulder. Don López MD on August 01, 2016 at 15:45 Board Certified Radiologist. This report was verified electronically.
--- NOTE | 2016-08-01 23:57 | HHI.PR ---
Subjective Remarks patient seen today around 11 AM. No acute changes per nursing. Patient lying in bed. Appears comfortable. Discussed with nursing care and will set patient up in a recliner. Patient does report that patient appears to have a stiff left shoulder, may have some pain. Patient does have stiffness in proximal muscles of left shoulder, contracture, however no tenderness to palpation. X-ray shoulder negative for acute process Objective Vital Signs Date Time Temp Pulse Resp B/P Pulse Ox O2 Delivery O2 Flow Rate FiO2 08/01/16 20:23 97.9 88 16 114/82 92 08/01/16 16:00 97.7 88 18 108/78 99 08/01/16 12:00 97.6 93 18 104/76 98 08/01/16 10:58 95 08/01/16 08:00 97.1 75 16 110/77 98 08/01/16 04:00 96.8 55 16 106/70 97 08/01/16 00:11 96.6 83 16 129/79 95 I/O 07/31/16 07/31/16 07/31/16 08/01/16 08/01/16 08/01/16 07:00 15:00 23:00 07:00 15:00 23:00 Intake Total 0 ml 480 ml Output Total 600 ml 750 ml Balance -600 ml -750 ml 480 ml Intake Oral 0 ml 480 ml Output Urine Total 600 ml 750 ml # Voids 1 3 # Bowel Movements 1 1 1 1 Result Diagram: 08/01/16 0756 08/01/16 0756 Objective Remarks GENERAL: lying in bed sleeping. He wakes up for exam.appears comfortable.alert. Disoriented. SKIN: Warm and dry. HEAD: Normocephalic. EYES: No scleral icterus. No injection or drainage. NECK: Supple, trachea midline. No JVD. CARDIOVASCULAR: Regular rate and rhythm without murmurs, gallops, or rubs. RESPIRATORY: Breath sounds equal bilaterally. No accessory muscle use. GASTROINTESTINAL: Abdomen soft, non-tender, nondistended. no tenderness of the left shoulder. Patient does have spasticity of left shoulder muscles, consistent with previous exam. MUSCULOSKELETAL: No cyanosis, or edema. moves all extremities, 5 out of 5 strength bilateral upper and lower extremities BACK: Nontender without obvious deformity. No CVA tenderness. 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 //CSF leak - repaired - no need for ONCOLOGY TRANSPLANT NETWORK MANAGER shunt at this time per NSGY - Continue Seroquel -She'll need follow-up with neurosurgery at discharge. //Hypertension - Metoprolol 25 mg every 12 hours - continue Telemetry //Acute protein calorie malnutritionmild - Continue Jevity 1.5 goal 50 cc an hour - po intake not consistent --regular diet - dietitian ff along with us - Miralax 17 gm daily - Pepcid for GI prophylaxis - Continue Reglan for prokinetic agent - 07/28 reconsult dietary to convert TF to bolus regimen-- to allow more activity and not hooked to feeding tube pole constantly 07/30. Order bolus feeding Jevity 1.5. 360 mL every 6 hours-free water flushes increased to 100 mL every 6 hours staggered -07/31. Increased BUN. Increase free water flushes to 150 mL every 6 hours. //Normocytic anemia - H&H stable //Hermila Ventriculitis - post intraventricular Amphotericin B administration. Last dose 06/30 - right ventriculostomy 06/03, replaced 06/12 - on po Dilfucan 800 mg daily- end date 08/07/16 per ID recommendations.- Dr. Coulter - no growth on a sample 06/23 - repeat CSF 06/30/2016 and 07/07/2016 no growth -Continue to monitor for possible recurrence. = LFTs stable. Continue Diflucan. //Enterococcus Bacteremia. Resolved. - Completed course of Vanc IV 06/24 //GI Prophylaxis Continue Pepcid 20 mg twice a day: //Suspected rotator cuff tear left shoulder. X-ray shoulder negative. Appreciate physical therapy assistance. //DVT Prophylaxis - SCDs - Continue Heparin subQ -continue PT/cognitive efforts Discharge Planning Physical therapy following. Appreciate assistance Difficult discharge. Insurance pending. Appreciate case management assistance. Darrion Méndez MD Aug 01, 2016 23:57
[2016-08-02 00:36] VITALS: BP 118/77; PULSE 80; RESP 18; TEMP 98.4; O2SAT 96
[2016-08-02] MEDS: CHLORHEXIDINE GLUCONATE 2 % 1 PACK (2 CLOTHS) TOP SCH (03:27)
[2016-08-02] MEDS: FREE WATER PEG SCH ×4 (04:00→22:00)
[2016-08-02 04:48] VITALS: BP 114/85; PULSE 76; RESP 18; TEMP 97.2; O2SAT 96
[2016-08-02] MEDS: METOCLOPRAMIDE HCL 10 MG TAB PO SCH ×4 (05:42→22:07)
[2016-08-02 08:00] VITALS: BP 132/85; PULSE 77; RESP 16; TEMP 96.8; O2SAT 96
[2016-08-02] MEDS: FAMOTIDINE 20 MG TAB NG SCH ×2 (08:46→22:06)
[2016-08-02] MEDS: FLUCONAZOLE 200 MG TAB PO SCH (08:46)
[2016-08-02] MEDS: QUEtiapine FUMARATE 25 MG TAB PO SCH ×2 (08:46→22:04)
[2016-08-02] MEDS: METOPROLOL TARTRATE 25 MG TAB PO SCH ×2 (08:47→22:07)
[2016-08-02] MEDS: POLYETHYLENE GLYCOL 17 GM PKG PO SCH ×2 (08:47→20:00)
[2016-08-02] MEDS: levETIRAcetam 500 MG TAB PO SCH ×2 (08:47→22:04)
[2016-08-02] MEDS: HEPARIN SODIUM - SQ 10,000 UNITS/ML VIAL SQ SCH ×2 (08:47→22:05)
[2016-08-02] MEDS: THIAMINE HCL 100 MG TAB PO SCH (08:47)
[2016-08-02] MEDS: LACTIC ACID (AMMONIUM LACTATE) 12% LOTION 225 GM BTL TOPICAL SCH ×2 (08:48→22:05)
[2016-08-02] MEDS: SODIUM CHLORIDE 0.9% FLUSH 5 ML FLUSH IV FLUSH SCH ×2 (09:00→21:00)
[2016-08-02 12:00] VITALS: BP 140/88; PULSE 93; RESP 16; TEMP 98.8; O2SAT 97
[2016-08-02 16:00] VITALS: BP 130/77; PULSE 85; RESP 18; TEMP 98.1; O2SAT 97
[2016-08-02 20:00] VITALS: BP 122/87; PULSE 82; RESP 16; TEMP 98; O2SAT 97
[2016-08-03] VITALS (7 sets, daily range): BP systolic 101–148; BP diastolic 67–93; PULSE 67–90; RESP 16–19; TEMP 96.7–98; O2SAT 94–98
--- NOTE | 2016-08-03 00:01 | HHI.PR ---
Subjective Remarks date of service 08/02/16. Patient seen the morning of 08/02/16. Patient says he is feeling alright. Denies any chest pain or shortness of breath. No acute issues per nursing. Objective Vital Signs Date Time Temp Pulse Resp B/P Pulse Ox O2 Delivery O2 Flow Rate FiO2 08/02/16 20:00 98.0 82 16 122/87 97 08/02/16 16:00 98.1 85 18 130/77 97 08/02/16 12:00 98.8 93 16 140/88 97 08/02/16 08:00 96.8 77 16 132/85 96 08/02/16 04:48 97.2 76 18 114/85 96 08/02/16 00:36 98.4 80 18 118/77 96 I/O 08/02/16 08/02/16 08/02/16 08/03/16 08/03/16 08/03/16 07:00 15:00 23:00 07:00 15:00 23:00 Intake Total 400 ml Balance 400 ml Intake Oral 400 ml # Voids 2 5 # Bowel Movements 2 2 Result Diagram: 08/01/16 0756 08/01/16 0756 Objective Remarks GENERAL: lying in bed awake.appears comfortable.alert. Disoriented. SKIN: Warm and dry. HEAD: Normocephalic. EYES: No scleral icterus. No injection or drainage. NECK: Supple, trachea midline. No JVD. CARDIOVASCULAR: Regular rate and rhythm without murmurs, gallops, or rubs. RESPIRATORY: Breath sounds equal bilaterally. No accessory muscle use. GASTROINTESTINAL: Abdomen soft, non-tender, nondistended. no tenderness of the left shoulder. Patient does have spasticity of left shoulder muscles, consistent with previous exam. MUSCULOSKELETAL: No cyanosis, or edema. moves all extremities, 5 out of 5 strength bilateral upper and lower extremities BACK: Nontender without obvious deformity. No CVA tenderness. 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 //CSF leak - repaired - no need for HORSE BREAKER shunt at this time per NSGY - Continue Seroquel -She'll need follow-up with neurosurgery at discharge. //Hypertension - Metoprolol 25 mg every 12 hours - continue Telemetry //Acute protein calorie malnutritionmild - Continue Jevity 1.5 goal 50 cc an hour - po intake not consistent --regular diet - dietitian ff along with us - Miralax 17 gm daily - Pepcid for GI prophylaxis - Continue Reglan for prokinetic agent - 07/28 reconsult dietary to convert TF to bolus regimen-- to allow more activity and not hooked to feeding tube pole constantly 07/30. Order bolus feeding Jevity 1.5. 360 mL every 6 hours-free water flushes increased to 100 mL every 6 hours staggered -07/31. Increased BUN. Increase free water flushes to 150 mL every 6 hours. 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 Last dose 06/30 - right ventriculostomy 06/03, replaced 06/12 - on po Dilfucan 800 mg daily- end date 08/07/16 per ID recommendations.- Dr. Coulter - no growth on a sample 06/23 - repeat CSF 06/30/2016 and 07/07/2016 no growth -Continue to monitor for possible recurrence. = LFTs stable. Continue Diflucan. //Enterococcus Bacteremia. Resolved. - Completed course of Vanc IV 06/24 //GI Prophylaxis Continue Pepcid 20 mg twice a day: //Suspected rotator cuff tear left shoulder. X-ray shoulder negative 08/01. Appreciate physical therapy assistance. //DVT Prophylaxis - SCDs - Continue Heparin subQ -continue PT/cognitive efforts Discharge Planning Physical therapy following. Appreciate assistance Difficult discharge. Insurance pending. Appreciate case management assistance. Darrion Méndez MD Aug 03, 2016 00:01
[2016-08-03] MEDS: FREE WATER PEG SCH ×4 (03:46→22:00)
[2016-08-03] MEDS: METOCLOPRAMIDE HCL 10 MG TAB PO SCH ×4 (06:06→20:37)
[2016-08-03] MEDS: POLYETHYLENE GLYCOL 17 GM PKG PO SCH ×2 (08:00→20:37)
[2016-08-03] MEDS: LACTIC ACID (AMMONIUM LACTATE) 12% LOTION 225 GM BTL TOPICAL SCH ×2 (09:00→20:38)
[2016-08-03] MEDS: SODIUM CHLORIDE 0.9% FLUSH 5 ML FLUSH IV FLUSH SCH ×2 (09:00→20:37)
[2016-08-03] MEDS: HEPARIN SODIUM - SQ 10,000 UNITS/ML VIAL SQ SCH ×2 (09:43→20:38)
[2016-08-03] MEDS: METOPROLOL TARTRATE 25 MG TAB PO SCH ×2 (09:44→20:38)
[2016-08-03] MEDS: FLUCONAZOLE 200 MG TAB PO SCH (09:44)
[2016-08-03] MEDS: levETIRAcetam 500 MG TAB PO SCH ×2 (09:44→20:37)
[2016-08-03] MEDS: THIAMINE HCL 100 MG TAB PO SCH (09:44)
[2016-08-03] MEDS: FAMOTIDINE 20 MG TAB NG SCH ×2 (09:44→20:38)
[2016-08-03] MEDS: QUEtiapine FUMARATE 25 MG TAB PO SCH ×2 (09:52→20:37)
[2016-08-04] MEDS: FREE WATER PEG SCH ×4 (04:00→21:40)
[2016-08-04] MEDS: CHLORHEXIDINE GLUCONATE 2 % 1 PACK (2 CLOTHS) TOP SCH (04:00)
[2016-08-04 04:32] VITALS: BP 133/86; PULSE 86; RESP 17; TEMP 98; O2SAT 100
[2016-08-04] MEDS: METOCLOPRAMIDE HCL 10 MG TAB PO SCH ×4 (06:29→21:33)
--- NOTE | 2016-08-04 07:17 | HHI.PR ---
Subjective Remarks Date of service 08/03/16. Late entry. Patient seen the morning of 08/03/16. - Patient sitting up in bed. Says he feels well. He denies any chest pain or shortness of breath. Denies any nausea or vomiting. Discussed with nursing. No acute issues. Objective Vital Signs Date Time Temp Pulse Resp B/P Pulse Ox O2 Delivery O2 Flow Rate FiO2 08/04/16 04:32 98.0 86 17 133/86 100 08/03/16 23:47 97.6 86 17 124/78 97 08/03/16 20:00 98.0 90 17 119/78 97 08/03/16 16:38 97.5 80 19 122/84 96 08/03/16 12:39 96.8 70 16 101/67 98 08/03/16 08:00 96.7 67 18 148/93 97 I/O 08/03/16 08/03/16 08/03/16 08/04/16 08/04/16 08/04/16 07:00 15:00 23:00 07:00 15:00 23:00 Intake Total 120 ml 325 ml 120 ml 780 ml Balance 120 ml 325 ml 120 ml 780 ml Intake Oral 120 ml 325 ml 120 ml 120 ml Tube Feeding 360 ml Other 300 ml # Voids 3 4 2 2 # Bowel Movements 1 1 2 Result Diagram: 08/01/16 0756 08/01/16 0756 Objective Remarks GENERAL: lying in bed awake.appears comfortable.alert. Disoriented. SKIN: Warm and dry. HEAD: Normocephalic. EYES: No scleral icterus. No injection or drainage. NECK: Supple, trachea midline. No JVD. CARDIOVASCULAR: Regular rate and rhythm without murmurs, gallops, or rubs. RESPIRATORY: Breath sounds equal bilaterally. No accessory muscle use. GASTROINTESTINAL: Abdomen soft, non-tender, nondistended. MUSCULOSKELETAL: No cyanosis, or edema. moves all extremities. Patient does have spasticity of the left shoulder muscles. He does have tenderness to palpation of the supraspinatus muscle. BACK: Nontender without obvious deformity. No CVA tenderness. A/P Assessment and Plan 08/03/16. Patient seen and examined. Stable. No acute changes. Discharge planning. 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 //CSF leak - repaired - no need for MEDICAL SERVICES COORDINATOR shunt at this time per NSGY - Continue Seroquel -She'll need follow-up with neurosurgery at discharge. //Hypertension - Metoprolol 25 mg every 12 hours - continue Telemetry //Acute protein calorie malnutritionmild - Continue Jevity 1.5 goal 50 cc an hour - po intake not consistent --regular diet - dietitian ff along with us - Miralax 17 gm daily - Pepcid for GI prophylaxis - Continue Reglan for prokinetic agent - 07/28 reconsult dietary to convert TF to bolus regimen-- to allow more activity and not hooked to feeding tube pole constantly 07/30. Order bolus feeding Jevity 1.5. 360 mL every 6 hours-free water flushes increased to 100 mL every 6 hours staggered -07/31. Increased BUN. Increase free water flushes to 150 mL every 6 hours. 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 Last dose 06/30 - right ventriculostomy 06/03, replaced 06/12 - on po Dilfucan 800 mg daily- end date 08/07/16 per ID recommendations.- Dr. Coulter - no growth on a sample 06/23 - repeat CSF 06/30/2016 and 07/07/2016 no growth -Continue to monitor for possible recurrence. = LFTs stable. Continue Diflucan. //Enterococcus Bacteremia. Resolved. - Completed course of Vanc IV 06/24 //GI Prophylaxis Continue Pepcid 20 mg twice a day: //Suspected rotator cuff tear left shoulder. X-ray shoulder negative 08/01. Appreciate physical therapy assistance. //DVT Prophylaxis - SCDs - Continue Heparin subQ -continue PT/cognitive efforts Discharge Planning Physical therapy following. Appreciate assistance Difficult discharge. Insurance pending. Appreciate case management assistance. Darrion Méndez MD Aug 04, 2016 07:17
[2016-08-04 08:00] VITALS: BP 142/94; PULSE 72; RESP 16; TEMP 95.9; O2SAT 97
[2016-08-04] MEDS: POLYETHYLENE GLYCOL 17 GM PKG PO SCH ×2 (08:00→20:00)
[2016-08-04] MEDS: QUEtiapine FUMARATE 25 MG TAB PO SCH ×2 (08:23→21:33)
[2016-08-04] MEDS: SODIUM CHLORIDE 0.9% FLUSH 5 ML FLUSH IV FLUSH SCH ×2 (08:23→21:00)
[2016-08-04] MEDS: HEPARIN SODIUM - SQ 10,000 UNITS/ML VIAL SQ SCH ×2 (08:23→21:34)
[2016-08-04] MEDS: THIAMINE HCL 100 MG TAB PO SCH (08:23)
[2016-08-04] MEDS: levETIRAcetam 500 MG TAB PO SCH ×2 (08:23→21:33)
[2016-08-04] MEDS: FAMOTIDINE 20 MG TAB NG SCH ×2 (08:23→21:33)
[2016-08-04] MEDS: FLUCONAZOLE 200 MG TAB PO SCH (08:23)
[2016-08-04] MEDS: METOPROLOL TARTRATE 25 MG TAB PO SCH ×2 (08:23→21:33)
[2016-08-04] MEDS: LACTIC ACID (AMMONIUM LACTATE) 12% LOTION 225 GM BTL TOPICAL SCH ×2 (08:24→21:34)
[2016-08-04 12:00] VITALS: BP 113/83; PULSE 72; RESP 16; TEMP 96.1; O2SAT 99
[2016-08-04 15:57] VITALS: BP 119/81; PULSE 78; RESP 20; TEMP 95.9; O2SAT 98
[2016-08-04] MEDS: ACETAMIN 325 MG/BUTALBITAL 50 MG/CAFFEINE 40 MG TAB PO PRN (16:32)
--- NOTE | 2016-08-04 17:02 | HHI.PR ---
Subjective Remarks No overnight events. Patient denies chest pain or shortness of breath, however refuses to open it with my interview Stable vital signs Objective Vitals Vital Signs Date Time Temp Pulse Resp B/P Pulse Ox O2 Delivery O2 Flow Rate FiO2 08/04/16 15:57 95.9 78 20 119/81 98 08/04/16 12:00 96.1 72 16 113/83 99 08/04/16 08:00 95.9 72 16 142/94 97 08/04/16 04:32 98.0 86 17 133/86 100 08/03/16 23:47 97.6 86 17 124/78 97 08/03/16 20:00 98.0 90 17 119/78 97 I/O 08/03/16 08/03/16 08/03/16 08/04/16 08/04/16 08/04/16 07:00 15:00 23:00 07:00 15:00 23:00 Intake Total 120 ml 325 ml 120 ml 780 ml 930 ml 150 ml Balance 120 ml 325 ml 120 ml 780 ml 930 ml 150 ml Intake Oral 120 ml 325 ml 120 ml 120 ml Tube Feeding 360 ml 720 ml Tube Irrigant 60 ml Other 300 ml 150 ml 150 ml # Voids 3 4 2 2 1 # Bowel Movements 1 1 2 Result Diagram: 08/01/16 0756 08/01/16 0756 Imaging Last Impressions Shoulder X-Ray 08/01/16 0000 Signed Impressions: Service Date/Time: Monday, August 01, 2016 15:10 - CONCLUSION: Unremarkable limited examination of the left shoulder. Don López MD Head CT 07/15/16 0600 Signed Impressions: Service Date/Time: Friday, July 15, 2016 05:43 - CONCLUSION: 1. Fluid collection in the posterior soft tissues has significantly decreased in prominence. 2. Post surgical changes in the left cerebellum with previous occipital craniectomy. Altaf Alfaro MD Abdomen X-Ray 07/10/16 0937 Signed Impressions: Service Date/Time: July 09:57 - CONCLUSION: Stable nonspecific benign abdomen appearance Brian Vasquez MD Lower Extremity Ultrasound 07/05/16 0000 Signed Impressions: Service Date/Time: Tuesday, July 05, 2016 11:28 - CONCLUSION: Normal examination. Jese Malik MD Chest X-Ray 06/22/16 0000 Signed Impressions: Service Date/Time: Wednesday, June 22, 2016 12:54 - CONCLUSION: No acute cardiopulmonary disease identified. Tommy Ramirez MD ADDENDUM: There is a right arm PICC appropriately positioned, tip at the atriocaval junction. Brian Hu MD Objective Remarks GENERAL: lying in bed awake.appears comfortable.alert. Disoriented. SKIN: Warm and dry. HEAD: Normocephalic. EYES: No scleral icterus. No injection or drainage. NECK: Supple, trachea midline. No JVD. CARDIOVASCULAR: Regular rate and rhythm without murmurs, gallops, or rubs. RESPIRATORY: Breath sounds equal bilaterally. No accessory muscle use. GASTROINTESTINAL: Abdomen soft, non-tender, nondistended. MUSCULOSKELETAL: No cyanosis, or edema. moves all extremities. Patient does have spasticity of the left shoulder muscles. He does have tenderness to palpation of the supraspinatus muscle. BACK: Nontender without obvious deformity. No CVA tenderness. Procedures Right frontal Tommy hole with placement of a ventriculostomy catheter Medications and IVs Current Medications Medications (Trade) Dose Ordered Sig/Paula Route Start Time Stop Time Status Last Admin (Fioricet 325-50-40) 1 tab Q6H PRN PO 05/29/16 15:00 08/04/16 16:32 (Heparin Inj) 5,000 units Q12HR SQ 05/29/16 21:00 08/04/16 21:34 (Keppra) 500 mg Q12HR PO 05/29/16 21:00 08/04/16 21:33 (Benadryl 2% Cream) 1 applic TID PRN TOPICAL 06/02/16 11:15 (NS Flush) 2 ml UNSCH PRN IV FLUSH 06/03/16 09:45 07/17/16 02:44 (NS Flush) 2 ml BID IV FLUSH 06/03/16 21:00 08/03/16 20:37 (Tylenol) 650 mg Q6H PRN PO 06/03/16 09:45 06/22/16 09:11 (Zofran Inj) 4 mg Q6H PRN IV 06/03/16 09:45 07/08/16 08:54 (Colace) 100 mg BID PO 06/03/16 21:00 Hold 07/04/16 08:16 (Senokot) 17.2 mg BID PO 06/03/16 09:45 Hold 07/04/16 20:41 Miscellaneous Information 1 Q361D XX 06/03/16 09:45 (Chlorhexidine 2% Cloth) 3 pack Taper DAILY@04 TOP 06/04/16 04:00 05/31/17 03:59 07/14/16 04:00 (Chlorhexidine 2% Cloth) 3 pack UNSCH PRN TOP 06/03/16 09:45 (Pepcid) 20 mg BID NG 06/04/16 09:00 08/04/16 21:33 (SEROquel) 25 mg BID PO 06/06/16 09:00 08/04/16 21:33 Loperamide HCl 2 mg 2 mg UNSCH PRN TUBE 06/06/16 16:15 07/03/16 14:57 (Sodium Phosphate Inj/NS 250 ml Inj) 250 ml @ 42 mls/hr UNSCH PRN IV 06/12/16 07:15 (NS Flush) See Protocol DAILY IVF 06/23/16 09:00 07/30/16 09:00 (NS Flush) See Protocol UNSCH PRN IVF 06/22/16 12:30 (NS Flush) See Protocol UNSCH PRN IVF 06/22/16 12:30 (Vitamin B1) 100 mg DAILY PO 06/28/16 09:00 08/04/16 08:23 (Benadryl Inj) 25 mg Q6HR PRN IV 07/03/16 12:00 07/03/16 14:53 (Miralax) 17 gm Q12H PO 07/03/16 20:00 08/03/16 20:37 (Lopressor) 25 mg Q12HR PO 07/07/16 09:00 08/04/16 21:33 (Apresoline Inj) 10 mg Q1HR PRN IV PUSH 07/07/16 09:00 (Trandate Inj) 10 mg Q1HR PRN IV PUSH 07/07/16 09:00 (Diflucan) 800 mg DAILY PO 07/18/16 13:00 08/07/16 23:00 08/04/16 08:23 (Lac-Hydrin 12% Lotion) 1 applic BID TOPICAL 07/24/16 21:00 08/04/16 21:34 (Reglan) 5 mg ACHS PO 07/27/16 11:00 08/04/16 21:33 (Free Water) 150 ml Q6H PEG 07/31/16 22:00 08/04/16 21:40 Line: PICC Side: Right Location: Antecubital A/P Problem List: (1) Cerebellar hemorrhage ICD Code: I61.4 Status: Acute Plan: Patient with resultant cognitive deficits. Status post AVM embolization [facility] [place] followed by suboccipital craniotomy for hematoma evacuation and AVM resection. Continue Keppra 500 mg twice a day for seizure prophylaxis Neurosurgery has been consulted. Signed off. Continue rehabilitation efforts. Patient with cognitive therapy ongoinggradually improving. Continue to monitor Continue with PT efforts. (2) AVM (arteriovenous malformation) brain ICD Code: Q28.2 Status: Acute Plan: As above (3) Agitation ICD Code: R45.1 Status: Acute Plan: Continue Seroquel. (4) Hermila Ventriculitis Status: Resolved Plan: Status post intraventricular amphotericin B administration. Last dose 10/29. Right ventriculostomy on 05 09 was as 29, replaced 06/12 1. Diflucan 800 mg Frantz date aspirated recommendations Repeat CSF on 10/30/15 and show no growth Continue Diflucan. (5) CSF leak ICD Code: G96.0 Status: Resolved Plan: Which has been repaired. No need for FOLDING RULES PRINTING MACHINE OPERATOR shunt at this time as per surgery. Patient will need to follow-up with neurosurgery at discharge. (6) HTN (hypertension) ICD Code: I10 Status: Chronic Plan: Seems stable. Continue antihypertensive medications which include metoprolol. (7) Bacteremia due to Enterococcus ICD Code: R78.81 Status: Resolved Plan: Complete course of vancomycin IV on 06/24. Continue to monitor for signs of infection. (8) Normocytic anemia ICD Code: D64.9 Status: Acute Plan: Stable. Continue to monitor H&H. No signs of active bleeding. (9) Protein calorie malnutrition ICD Code: E46 Status: Acute Plan: Continue Jevity 1.50 50 cc an hourby mouth intake not consistent. Appreciate dietitian consultation and recommendations. Reglan as prokinetic agent Dietitian was consulted again on 1 course was 23 compared to feeding to bolus regimen to little more activity and not hope to feeding tube. Assessment and Plan GI prophylaxis: PPI Discharge Planning Difficult discharge. SSI pending. Problem Qualifiers (1) Cerebellar hemorrhage: Qualified Code: I61.4 - Nontraumatic intracerebral hemorrhage of cerebellum, unspecified laterality (2) HTN (hypertension): Qualified Code: I10 - Essential hypertension Oj Edmondson MD Aug 04, 2016 17:02
[2016-08-04 20:00] VITALS: BP 115/82; PULSE 83; RESP 16; TEMP 97.4; O2SAT 95
[2016-08-05] VITALS (7 sets, daily range): BP systolic 105–139; BP diastolic 75–90; PULSE 74–88; RESP 16–20; TEMP 96–98.5; O2SAT 95–98
[2016-08-05] MEDS: FREE WATER PEG SCH ×4 (03:24→21:29)
[2016-08-05] MEDS: CHLORHEXIDINE GLUCONATE 2 % 1 PACK (2 CLOTHS) TOP SCH (03:24)
[2016-08-05] MEDS: METOCLOPRAMIDE HCL 10 MG TAB PO SCH ×4 (06:32→21:27)
[2016-08-05 07:31] LABS: AUTOMATED NEUTROPHIL # 4.2 TH/MM3 (1.8-7.7); BASOPHIL % 0.5 % (0.0-2.0); EOSINOPHIL # 0.1 TH/MM3 (0-0.4); EOSINOPHIL % 1.3 % (0.0-4.0); HEMATOCRIT 32.3 % (39.0-51.0); HEMO FLAGS DIFF FINAL; LYMPH % 24.1 % (9.0-44.0); LYMPHOCYTE # 1.5 TH/MM3 (1.0-4.8); MEAN CELL VOLUME 87.4 FL (80.0-100.0); MEAN CORPUSCULAR HEMOGLOBIN 29.7 PG (27.0-34.0); MONO % 9.2 % (0.0-8.0); NEUT % 64.9 % (16.0-70.0); PLATELET COUNT 224 TH/MM3 (150-450); RED CELL DISTRIBUTION WIDTH 14.4 % (11.6-17.2); WHITE BLOOD COUNT 6.4 TH/MM3 (4.0-11.0)
[2016-08-05 07:55] LABS: ALKALINE PHOSPHATASE 90 U/L (45-117); ALT (GPT) 28 U/L (12-78); ANION GAP 7 MEQ/L (5-15); AST (GOT) 19 U/L (15-37); BICARBONATE 31.3 MEQ/L (21.0-32.0); BLOOD UREA NITROGEN 20 MG/DL (7-18); CHLORIDE 99 MEQ/L (98-107); GLOMERULAR FILTRATION RATE 101 ML/MIN (>89); MAGNESIUM 2.1 MG/DL (1.5-2.5); POTASSIUM 4.3 MEQ/L (3.5-5.1); SODIUM (NA) 137 MEQ/L (136-145); TOTAL BILIRUBIN ADULT 0.2 MG/DL (0.2-1.0)
[2016-08-05] MEDS: QUEtiapine FUMARATE 25 MG TAB PO SCH ×2 (08:26→21:27)
[2016-08-05] MEDS: SODIUM CHLORIDE 0.9% FLUSH 5 ML FLUSH IV FLUSH SCH ×2 (08:26→21:31)
[2016-08-05] MEDS: POLYETHYLENE GLYCOL 17 GM PKG PO SCH ×2 (08:26→21:30)
[2016-08-05] MEDS: METOPROLOL TARTRATE 25 MG TAB PO SCH ×2 (08:27→21:31)
[2016-08-05] MEDS: levETIRAcetam 500 MG TAB PO SCH ×2 (08:27→21:31)
[2016-08-05] MEDS: THIAMINE HCL 100 MG TAB PO SCH (08:27)
[2016-08-05] MEDS: FLUCONAZOLE 200 MG TAB PO SCH (08:27)
[2016-08-05] MEDS: FAMOTIDINE 20 MG TAB NG SCH ×2 (08:27→21:31)
[2016-08-05] MEDS: HEPARIN SODIUM - SQ 10,000 UNITS/ML VIAL SQ SCH ×2 (08:27→21:28)
[2016-08-05] MEDS: LACTIC ACID (AMMONIUM LACTATE) 12% LOTION 225 GM BTL TOPICAL SCH ×2 (08:28→21:31)
--- NOTE | 2016-08-05 10:01 | HHI.PR ---
Subjective Remarks No major overnight events. Patient is awake and alert denies chest pain and shortness of breath. Denies fevers or chills Patient composed of a headache. Stable vital signs. Objective Vitals Vital Signs Date Time Temp Pulse Resp B/P Pulse Ox O2 Delivery O2 Flow Rate FiO2 08/05/16 08:28 98.0 74 18 138/86 98 08/05/16 06:32 98.0 77 16 116/76 97 08/05/16 00:00 97.2 74 20 110/75 97 08/04/16 20:00 97.4 83 16 115/82 95 08/04/16 15:57 95.9 78 20 119/81 98 08/04/16 12:00 96.1 72 16 113/83 99 I/O 08/04/16 08/04/16 08/04/16 08/05/16 08/05/16 08/05/16 07:00 15:00 23:00 07:00 15:00 23:00 Intake Total 780 ml 930 ml 560 ml 570 ml Output Total 250 ml 100 ml Balance 780 ml 930 ml 310 ml 470 ml Intake Oral 120 ml 60 ml Tube Feeding 360 ml 720 ml 360 ml 360 ml Tube Irrigant 60 ml 50 ml 150 ml Other 300 ml 150 ml 150 ml Output Urine Total 250 ml 100 ml # Voids 2 1 # Bowel Movements 2 0 0 Result Diagram: 08/05/16 0658 08/05/16 0658 Imaging Last Impressions Shoulder X-Ray 08/01/16 0000 Signed Impressions: Service Date/Time: Monday, August 01, 2016 15:10 - CONCLUSION: Unremarkable limited examination of the left shoulder. Don López MD Head CT 07/15/16 0600 Signed Impressions: Service Date/Time: Friday, July 15, 2016 05:43 - CONCLUSION: 1. Fluid collection in the posterior soft tissues has significantly decreased in prominence. 2. Post surgical changes in the left cerebellum with previous occipital craniectomy. Altaf Alfaro MD Abdomen X-Ray 07/10/16 0937 Signed Impressions: Service Date/Time: July 09:57 - CONCLUSION: Stable nonspecific benign abdomen appearance Brian Vasquez MD Lower Extremity Ultrasound 07/05/16 0000 Signed Impressions: Service Date/Time: Tuesday, July 05, 2016 11:28 - CONCLUSION: Normal examination. Jese Malik MD Chest X-Ray 06/22/16 0000 Signed Impressions: Service Date/Time: Wednesday, June 22, 2016 12:54 - CONCLUSION: No acute cardiopulmonary disease identified. Tommy Ramirez MD ADDENDUM: There is a right arm PICC appropriately positioned, tip at the atriocaval junction. Brian Hu MD Objective Remarks GENERAL: lying in bed awake.appears comfortable.alert. Disoriented. SKIN: Warm and dry. HEAD: Normocephalic. EYES: No scleral icterus. No injection or drainage. NECK: Supple, trachea midline. No JVD. CARDIOVASCULAR: Regular rate and rhythm without murmurs, gallops, or rubs. RESPIRATORY: Breath sounds equal bilaterally. No accessory muscle use. GASTROINTESTINAL: Abdomen soft, non-tender, nondistended. MUSCULOSKELETAL: No cyanosis, or edema. moves all extremities. Patient does have spasticity of the left shoulder muscles. He does have tenderness to palpation of the supraspinatus muscle. BACK: Nontender without obvious deformity. No CVA tenderness. Procedures Right frontal Tommy hole with placement of a ventriculostomy catheter Medications and IVs Current Medications Medications (Trade) Dose Ordered Sig/Paula Route Start Time Stop Time Status Last Admin (Fioricet 325-50-40) 1 tab Q6H PRN PO 05/29/16 15:00 08/04/16 16:32 (Heparin Inj) 5,000 units Q12HR SQ 05/29/16 21:00 08/05/16 08:27 (Keppra) 500 mg Q12HR PO 05/29/16 21:00 08/05/16 08:27 (Benadryl 2% Cream) 1 applic TID PRN TOPICAL 06/02/16 11:15 (NS Flush) 2 ml UNSCH PRN IV FLUSH 06/03/16 09:45 07/17/16 02:44 (NS Flush) 2 ml BID IV FLUSH 06/03/16 21:00 08/05/16 08:26 (Tylenol) 650 mg Q6H PRN PO 06/03/16 09:45 06/22/16 09:11 (Zofran Inj) 4 mg Q6H PRN IV 06/03/16 09:45 07/08/16 08:54 (Colace) 100 mg BID PO 06/03/16 21:00 Hold 07/04/16 08:16 (Senokot) 17.2 mg BID PO 06/03/16 09:45 Hold 07/04/16 20:41 Miscellaneous Information 1 Q361D XX 06/03/16 09:45 (Chlorhexidine 2% Cloth) Taper DAILY@04 TOP 06/04/16 04:00 05/31/17 03:59 07/14/16 04:00 (Chlorhexidine 2% Cloth) 3 pack UNSCH PRN TOP 06/03/16 09:45 (Pepcid) 20 mg BID NG 06/04/16 09:00 08/05/16 08:27 (SEROquel) 25 mg BID PO 06/06/16 09:00 08/05/16 08:26 Loperamide HCl 2 mg 2 mg UNSCH PRN TUBE 06/06/16 16:15 07/03/16 14:57 (Sodium Phosphate Inj/NS 250 ml Inj) 250 ml @ 42 mls/hr UNSCH PRN IV 06/12/16 07:15 (NS Flush) See Protocol DAILY IVF 06/23/16 09:00 07/30/16 09:00 (NS Flush) See Protocol UNSCH PRN IVF 06/22/16 12:30 (NS Flush) See Protocol UNSCH PRN IVF 06/22/16 12:30 (Vitamin B1) 100 mg DAILY PO 06/28/16 09:00 08/05/16 08:27 (Benadryl Inj) 25 mg Q6HR PRN IV 07/03/16 12:00 07/03/16 14:53 (Miralax) 17 gm Q12H PO 07/03/16 20:00 08/05/16 08:26 (Lopressor) 25 mg Q12HR PO 07/07/16 09:00 08/05/16 08:27 (Apresoline Inj) 10 mg Q1HR PRN IV PUSH 07/07/16 09:00 (Trandate Inj) 10 mg Q1HR PRN IV PUSH 07/07/16 09:00 (Diflucan) 800 mg DAILY PO 07/18/16 13:00 08/07/16 23:00 08/05/16 08:27 (Lac-Hydrin 12% Lotion) 1 applic BID TOPICAL 07/24/16 21:00 08/05/16 08:28 (Reglan) 5 mg ACHS PO 07/27/16 11:00 08/05/16 15:15 (Free Water) 150 ml Q6H PEG 07/31/16 22:00 08/05/16 15:15 Urinary Catheter: No Line: PICC Side: Right Location: Antecubital A/P Problem List: (1) Cerebellar hemorrhage ICD Code: I61.4 Status: Acute (2) AVM (arteriovenous malformation) brain ICD Code: Q28.2 Status: Acute (3) Agitation ICD Code: R45.1 Status: Acute (4) Hermila Ventriculitis Status: Resolved (5) CSF leak ICD Code: G96.0 Status: Resolved (6) HTN (hypertension) ICD Code: I10 Status: Chronic (7) Bacteremia due to Enterococcus ICD Code: R78.81 Status: Resolved (8) Normocytic anemia ICD Code: D64.9 Status: Acute (9) Protein calorie malnutrition ICD Code: E46 Status: Acute Assessment and Plan (1) Cerebellar hemorrhage ICD Code: I61.4 Status: Acute Plan: Patient with resultant cognitive deficits. Status post AVM embolization [facility] [place] followed by suboccipital craniotomy for hematoma evacuation and AVM resection. Continue Keppra 500 mg twice a day for seizure prophylaxis Neurosurgery has been consulted. Signed off. Continue rehabilitation efforts. Patient with cognitive therapy ongoinggradually improving. Continue to monitor Continue with PT efforts. (2) AVM (arteriovenous malformation) brain ICD Code: Q28.2 Status: Acute Plan: As above (3) Agitation ICD Code: R45.1 Status: Acute Plan: Continue Seroquel. (4) Hermila Ventriculitis Status: Resolved Plan: Status post intraventricular amphotericin B administration. Last dose 10/29. Right ventriculostomy on 05 09 was as 29, replaced 06/12 1. Diflucan 800 mg Frantz date aspirated recommendations Repeat CSF on 10/30/15 and show no growth Continue Diflucan. (5) CSF leak ICD Code: G96.0 Status: Resolved Plan: Which has been repaired. No need for CONSTRUCTION EQUIPMENT MECHANIC shunt at this time as per surgery. Patient will need to follow-up with neurosurgery at discharge. (6) HTN (hypertension) ICD Code: I10 Status: Chronic Plan: Seems stable. Continue antihypertensive medications which include metoprolol. (7) Bacteremia due to Enterococcus ICD Code: R78.81 Status: Resolved Plan: Complete course of vancomycin IV on 06/24. Continue to monitor for signs of infection. (8) Normocytic anemia ICD Code: D64.9 Status: Acute Plan: Stable. Continue to monitor H&H. No signs of active bleeding. (9) Protein calorie malnutrition ICD Code: E46 Status: Acute Plan: Continue Jevity 1.50 50 cc an hourby mouth intake not consistent. Appreciate dietitian consultation and recommendations. Reglan as prokinetic agent Dietitian was consulted again on 1 course was 23 compared to feeding to bolus regimen to little more activity and not hope to feeding tube. Assessment and Plan GI prophylaxis: PPI Discharge Planning Difficult discharge. SSI pending. Problem Qualifiers (1) Cerebellar hemorrhage: Qualified Code: I61.4 - Nontraumatic intracerebral hemorrhage of cerebellum, unspecified laterality (2) HTN (hypertension): Qualified Code: I10 - Essential hypertension Oj Edmondson MD Aug 05, 2016 10:01
[2016-08-06] MEDS: CHLORHEXIDINE GLUCONATE 2 % 1 PACK (2 CLOTHS) TOP SCH (04:00)
[2016-08-06 06:14] VITALS: BP 133/84; PULSE 74; RESP 16; TEMP 97.2; O2SAT 97
[2016-08-06] MEDS: METOCLOPRAMIDE HCL 10 MG TAB PO SCH ×4 (07:00→21:00)
[2016-08-06] MEDS: POLYETHYLENE GLYCOL 17 GM PKG PO SCH ×2 (08:00→20:00)
[2016-08-06 08:25] VITALS: BP 131/88; PULSE 73; RESP 17; TEMP 96.8; O2SAT 97
[2016-08-06] MEDS: SODIUM CHLORIDE 0.9% FLUSH 5 ML FLUSH IV FLUSH SCH ×2 (09:00→20:59)
[2016-08-06] MEDS: LACTIC ACID (AMMONIUM LACTATE) 12% LOTION 225 GM BTL TOPICAL SCH ×2 (09:00→20:59)
[2016-08-06] MEDS: levETIRAcetam 500 MG TAB PO SCH ×2 (09:00→20:59)
[2016-08-06] MEDS: THIAMINE HCL 100 MG TAB PO SCH (09:00)
[2016-08-06] MEDS: QUEtiapine FUMARATE 25 MG TAB PO SCH ×2 (09:00→21:00)
[2016-08-06] MEDS: FLUCONAZOLE 200 MG TAB PO SCH (09:00)
[2016-08-06] MEDS: FAMOTIDINE 20 MG TAB NG SCH ×2 (09:00→21:05)
[2016-08-06] MEDS: HEPARIN SODIUM - SQ 10,000 UNITS/ML VIAL SQ SCH ×2 (09:00→21:00)
[2016-08-06] MEDS: METOPROLOL TARTRATE 25 MG TAB PO SCH ×2 (09:00→21:00)
[2016-08-06] MEDS: FREE WATER PEG SCH ×3 (10:00→22:00)
[2016-08-06 12:48] VITALS: BP 128/90; PULSE 105; RESP 18; TEMP 97.6; O2SAT 97
[2016-08-06 16:15] VITALS: BP 117/80; PULSE 86; RESP 18; TEMP 99; O2SAT 98
--- NOTE | 2016-08-06 16:56 | HHI.PR ---
Subjective Remarks no complains appears comfortable tolerating tube feedings Objective Vitals Vital Signs Date Time Temp Pulse Resp B/P Pulse Ox O2 Delivery O2 Flow Rate FiO2 08/06/16 16:15 99.0 86 18 117/80 98 08/06/16 12:48 97.6 105 18 128/90 97 08/06/16 08:25 96.8 73 17 131/88 97 08/06/16 06:14 97.2 74 16 133/84 97 08/05/16 23:54 96.0 76 18 105/81 97 08/05/16 20:00 98.5 76 16 132/89 97 I/O 08/05/16 08/05/16 08/05/16 08/06/16 08/06/16 08/06/16 07:00 15:00 23:00 07:00 15:00 23:00 Intake Total 570 ml 480 ml 240 ml Output Total 100 ml 350 ml 200 ml 300 ml Balance 470 ml 480 ml -350 ml -200 ml -60 ml Intake Oral 60 ml 480 ml 240 ml Tube Feeding 360 ml Tube Irrigant 150 ml Output Urine Total 100 ml 350 ml 200 ml 300 ml # Voids 3 2 # Bowel Movements 0 1 0 0 1 Result Diagram: 08/05/1665708/05/1658 Objective Remarks awake and alert, oriented x 2, speech clear and soft, ff all commands pupils equal lungs clear regular rhythm abdomen soft, PEG in place extremities no edema 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 condom catheter inplace LE moves all extremities-- good peripheral pulses Procedures Right frontal [place] hole with placement of a ventriculostomy catheter Line: PICC Side: Right Location: Antecubital A/P Assessment and Plan 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 - status post AVM embolization at [facility] followed by suboccipital craniotomy for hematoma evacuation and AVM resection - Keppra 500 mg twice a day for seizure prophylaxis - On Lopressor 50 mg po bid- good control -neurosurgery signed off -continue rehab efforts- reconsulted PT to update their assessment 07/27 -cognitive therapy ongoing- gradually improving CSF leak - repaired - no need for PATENT LITIGATION ASSOCIATE shunt at this time per NSGY - Continue Seroquel Hypertension - Metoprolol 25 mg every 12 hours - continue Telemetry Acute protein calorie malnutritionmild - Continue Jevity 1.5 goal 50 cc an hour - po intake not consistent --regular diet - dietitian ff along with us - Miralax 17 gm daily - Pepcid for GI prophylaxis - Continue Reglan for prokinetic agent - 07/28 reconsult dietary to convert TF to bolus regimen-- to allow more activity and not hooked to feeding tube pole constantly Normocytic anemia - H&H stable Hermila Ventriculitis - post intraventricular Amphotericin B administration. Last dose 06/30 - right ventriculostomy 06/03, replaced 06/12 - on po Dilfucan 800 mg daily- end date 08/07/16 per ID recommendations.- Dr. Coulter - no growth on a sample 06/23 - repeat CSF 06/30/2016 and 07/07/2016 no growth Enterococcus Bacteremia - Completed course of Vanc IV 06/24 GI Prophylaxis Pepcid 20 mg twice a day: DVT Prophylaxis - SCDs - Heparin subQ -continue PT/cognitive efforts REconsulted PT to update notes- will need these report for SNF- CM trying to get him into one Discharge Planning needs placement. Jeison Neal MD Aug 06, 2016 16:56 Enterococcus Bacteremia - Completed course of Vanc IV 06/24 GI Prophylaxis Pepcid 20 mg twice a day: DVT Prophylaxis - SCDs - Heparin subQ -continue PT/cognitive efforts REconsulted PT to update notes- will need these report for SNF- CM trying to get him into one Discharge Planning needs placement. Problem Qualifiers (1) Cerebellar hemorrhage: Qualified Code: I61.4 - Nontraumatic intracerebral hemorrhage of cerebellum, unspecified laterality (2) HTN (hypertension): Qualified Code: I10 - Essential hypertension Jeison Neal MD Aug 06, 2016 16:56
[2016-08-06 20:00] VITALS: BP 118/77; PULSE 98; RESP 18; TEMP 98.1; O2SAT 98
[2016-08-06 20:03] VITALS: BP 118/77; PULSE 98; RESP 18; TEMP 98.1; O2SAT 98
[2016-08-07 00:51] VITALS: BP 84/58; PULSE 82; RESP 16; TEMP 97.8; O2SAT 97
[2016-08-07 04:00] VITALS: BP 117/81; PULSE 79; RESP 20; TEMP 96.2; O2SAT 98
[2016-08-07] MEDS: CHLORHEXIDINE GLUCONATE 2 % 1 PACK (2 CLOTHS) TOP SCH (04:00)
[2016-08-07 07:30] VITALS: BP 139/77; PULSE 82; RESP 18; TEMP 96.1; O2SAT 97
[2016-08-07] MEDS: POLYETHYLENE GLYCOL 17 GM PKG PO SCH ×2 (08:00→21:16)
[2016-08-07] MEDS: THIAMINE HCL 100 MG TAB PO SCH (09:00)
[2016-08-07] MEDS: LACTIC ACID (AMMONIUM LACTATE) 12% LOTION 225 GM BTL TOPICAL SCH ×2 (09:00→21:00)
[2016-08-07] MEDS: HEPARIN SODIUM - SQ 10,000 UNITS/ML VIAL SQ SCH ×2 (09:00→21:16)
[2016-08-07] MEDS: FREE WATER PEG SCH ×3 (10:00→21:16)
--- NOTE | 2016-08-07 10:31 | HHI.PR ---
Subjective Remarks Mr Badillo is walking around the [place] with PT with FW walker slow but steady with standby assist he ate pretty good this breakfast he's got a funny sense of humor- a little sarcastic but funny Objective Vitals Vital Signs Date Time Temp Pulse Resp B/P Pulse Ox O2 Delivery O2 Flow Rate FiO2 08/07/16 07:30 96.1 82 18 139/77 97 08/07/16 04:00 96.2 79 20 117/81 98 08/07/16 00:51 97.8 82 16 84/58 97 08/06/16 20:03 98.1 98 18 118/77 98 08/06/16 20:00 98.1 98 18 118/77 98 08/06/16 16:15 99.0 86 18 117/80 98 08/06/16 12:48 97.6 105 18 128/90 97 I/O 08/06/16 08/06/16 08/06/16 08/07/16 08/07/16 08/07/16 07:00 15:00 23:00 07:00 15:00 23:00 Intake Total 240 ml 60 ml Output Total 200 ml 300 ml Balance -200 ml -60 ml 60 ml Intake Oral 240 ml 60 ml Output Urine Total 200 ml 300 ml # Voids 2 1 2 # Bowel Movements 0 1 1 1 Result Diagram: 08/05/16 0658 08/05/16 0658 Imaging Last Impressions Shoulder X-Ray 08/01/16 0000 Signed Impressions: Service Date/Time: Monday, August 01, 2016 15:10 - CONCLUSION: Unremarkable limited examination of the left shoulder. Don López MD Head CT 07/15/16 0600 Signed Impressions: Service Date/Time: Friday, July 15, 2016 05:43 - CONCLUSION: 1. Fluid collection in the posterior soft tissues has significantly decreased in prominence. 2. Post surgical changes in the left cerebellum with previous occipital craniectomy. Altaf Alfaro MD Abdomen X-Ray 07/10/16 0937 Signed Impressions: Service Date/Time: July 09:57 - CONCLUSION: Stable nonspecific benign abdomen appearance Brian Vasquez MD Lower Extremity Ultrasound 07/05/16 0000 Signed Impressions: Service Date/Time: Tuesday, July 05, 2016 11:28 - CONCLUSION: Normal examination. Jese Malik MD Chest X-Ray 06/22/16 0000 Signed Impressions: Service Date/Time: Wednesday, June 22, 2016 12:54 - CONCLUSION: No acute cardiopulmonary disease identified. Tommy Ramirez MD ADDENDUM: There is a right arm PICC appropriately positioned, tip at the atriocaval junction. 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 condom catheter inplace gait steady with SBA and FWW LE moves all extremities-- good peripheral pulses Procedures Right frontal [place] hole with placement of a ventriculostomy catheter Line: PICC Side: Right Location: Antecubital A/P Problem List: (1) Cerebellar hemorrhage ICD Code: I61.4 Status: Acute (2) AVM (arteriovenous malformation) brain ICD Code: Q28.2 Status: Acute (3) Agitation ICD Code: R45.1 Status: Acute (4) Hermila Ventriculitis Status: Resolved (5) CSF leak ICD Code: G96.0 Status: Resolved (6) HTN (hypertension) ICD Code: I10 Status: Chronic (7) Bacteremia due to Enterococcus ICD Code: R78.81 Status: Resolved (8) Normocytic anemia ICD Code: D64.9 Status: Acute (9) Protein calorie malnutrition ICD Code: E46 Status: Acute Assessment and Plan 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 - status post AVM embolization at [facility] followed by suboccipital craniotomy for hematoma evacuation and AVM resection - Keppra 500 mg twice a day for seizure prophylaxis - On Lopressor 50 mg po bid- good control -neurosurgery signed off -continue rehab efforts- -cognitive therapy ongoing- gradually improving CSF leak - repaired - no need for SPORTS PHOTOGRAPHER shunt at this time per NSGY - Continue Seroquel Hypertension - Metoprolol 25 mg every 12 hours - continue Telemetry Acute protein calorie malnutritionmild - Continue Jevity 1.5 goal 50 cc an hour - po intake not consistent --regular diet - dietitian ff along with us - Miralax 17 gm daily - Pepcid for GI prophylaxis - Continue Reglan for prokinetic agent - TF bolus regimen-- Normocytic anemia - H&H stable Hermila Ventriculitis - post intraventricular Amphotericin B administration. Last dose 06/30 - right ventriculostomy 06/03, replaced 06/12 - on po Dilfucan 800 mg daily- end date 08/07/16 per ID recommendations.- Dr. Coulter - no growth on a sample 06/23 - repeat CSF 06/30/2016 and 07/07/2016 no growth Enterococcus Bacteremia - Completed course of Vanc IV 06/24 GI Prophylaxis Pepcid 20 mg twice a day: DVT Prophylaxis - SCDs - Heparin subQ -continue PT/cognitive efforts SNF- CM trying to get him into one- SSI pending Discharge Planning needs placement. Problem Qualifiers (1) Cerebellar hemorrhage: Qualified Code: I61.4 - Nontraumatic intracerebral hemorrhage of cerebellum, unspecified laterality (2) HTN (hypertension): Qualified Code: I10 - Essential hypertension Jeison Neal MD Aug 07, 2016 10:31
[2016-08-07] MEDS: METOCLOPRAMIDE HCL 10 MG TAB PO SCH ×4 (10:59→21:15)
[2016-08-07] MEDS: levETIRAcetam 500 MG TAB PO SCH ×2 (10:59→21:15)
[2016-08-07] MEDS: QUEtiapine FUMARATE 25 MG TAB PO SCH ×2 (11:00→21:15)
[2016-08-07] MEDS: METOPROLOL TARTRATE 25 MG TAB PO SCH ×2 (11:00→21:15)
[2016-08-07] MEDS: FAMOTIDINE 20 MG TAB NG SCH ×2 (11:00→21:15)
[2016-08-07] MEDS: FLUCONAZOLE 200 MG TAB PO SCH (11:00)
[2016-08-07] MEDS: SODIUM CHLORIDE 0.9% FLUSH 5 ML FLUSH IV FLUSH SCH ×2 (11:01→21:00)
[2016-08-07 11:15] VITALS: BP 133/90; PULSE 95; RESP 18; TEMP 97.1; O2SAT 97
[2016-08-07 16:13] VITALS: BP 119/85; PULSE 93; RESP 20; TEMP 99.1; O2SAT 97
[2016-08-07 20:02] VITALS: BP 106/64; PULSE 98; RESP 17; TEMP 98.4; O2SAT 98
[2016-08-08 00:13] VITALS: BP 112/77; PULSE 89; RESP 17; TEMP 98.6; O2SAT 98
[2016-08-08] MEDS: FREE WATER PEG SCH ×4 (04:00→20:10)
[2016-08-08] MEDS: CHLORHEXIDINE GLUCONATE 2 % 1 PACK (2 CLOTHS) TOP SCH (04:00)
[2016-08-08 05:13] VITALS: BP 113/73; PULSE 88; RESP 17; TEMP 97.8; O2SAT 97
[2016-08-08] MEDS: METOCLOPRAMIDE HCL 10 MG TAB PO SCH ×4 (06:26→20:10)
[2016-08-08 08:00] VITALS: BP 117/74; PULSE 80; RESP 20; TEMP 96.5; O2SAT 98
[2016-08-08] MEDS: POLYETHYLENE GLYCOL 17 GM PKG PO SCH ×2 (08:00→20:11)
[2016-08-08] MEDS: SODIUM CHLORIDE 0.9% FLUSH 5 ML FLUSH IV FLUSH SCH ×2 (09:00→20:10)
[2016-08-08] MEDS: THIAMINE HCL 100 MG TAB PO SCH (10:03)
[2016-08-08] MEDS: levETIRAcetam 500 MG TAB PO SCH ×2 (10:03→20:10)
[2016-08-08] MEDS: QUEtiapine FUMARATE 25 MG TAB PO SCH ×2 (10:03→20:10)
[2016-08-08] MEDS: FAMOTIDINE 20 MG TAB NG SCH ×2 (10:03→20:10)
[2016-08-08] MEDS: HEPARIN SODIUM - SQ 10,000 UNITS/ML VIAL SQ SCH ×2 (10:04→20:09)
[2016-08-08] MEDS: METOPROLOL TARTRATE 25 MG TAB PO SCH ×2 (10:04→20:10)
[2016-08-08] MEDS: LACTIC ACID (AMMONIUM LACTATE) 12% LOTION 225 GM BTL TOPICAL SCH ×2 (10:04→20:10)
[2016-08-08 12:00] VITALS: BP 112/68; PULSE 84; RESP 20; TEMP 98.1; O2SAT 99
--- NOTE | 2016-08-08 15:31 | HHI.PR ---
Subjective Remarks awake and alert when discussed about PEG states "leave it in" denies any pain Objective Vitals Vital Signs Date Time Temp Pulse Resp B/P Pulse Ox O2 Delivery O2 Flow Rate FiO2 08/08/16 12:00 98.1 84 20 112/68 99 08/08/16 08:00 96.5 80 20 117/74 98 08/08/16 05:13 97.8 88 17 113/73 97 08/08/16 00:13 98.6 89 17 112/77 98 08/07/16 20:02 98.4 98 17 106/64 98 08/07/16 16:13 99.1 93 20 119/85 97 I/O 08/07/16 08/07/16 08/07/16 08/08/16 08/08/16 08/08/16 07:00 15:00 23:00 07:00 15:00 23:00 Intake Total 60 ml 240 ml 240 ml Balance 60 ml 240 ml 240 ml Intake Oral 60 ml 240 ml 240 ml # Voids 2 3 1 # Bowel Movements 1 1 Result Diagram: 08/05/16 0658 08/05/16 0658 Imaging Last Impressions Shoulder X-Ray 08/01/16 0000 Signed Impressions: Service Date/Time: Monday, August 01, 2016 15:10 - CONCLUSION: Unremarkable limited examination of the left shoulder. Don López MD Head CT 07/15/16 0600 Signed Impressions: Service Date/Time: Friday, July 15, 2016 05:43 - CONCLUSION: 1. Fluid collection in the posterior soft tissues has significantly decreased in prominence. 2. Post surgical changes in the left cerebellum with previous occipital craniectomy. Altaf Alfaro MD Abdomen X-Ray 07/10/16 0937 Signed Impressions: Service Date/Time: July 09:57 - CONCLUSION: Stable nonspecific benign abdomen appearance Brian Vasquez MD Lower Extremity Ultrasound 07/05/16 0000 Signed Impressions: Service Date/Time: Tuesday, July 05, 2016 11:28 - CONCLUSION: Normal examination. Jese Malik MD Chest X-Ray 06/22/16 0000 Signed Impressions: Service Date/Time: Wednesday, June 22, 2016 12:54 - CONCLUSION: No acute cardiopulmonary disease identified. Tommy Ramirez MD ADDENDUM: There is a right arm PICC appropriately positioned, tip at the atriocaval junction. 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 condom catheter in place LE moves all extremities-- good peripheral pulses Procedures Right frontal [place] hole with placement of a ventriculostomy catheter Line: PICC Side: Right Location: Antecubital A/P Problem List: (1) Cerebellar hemorrhage ICD Code: I61.4 Status: Acute (2) AVM (arteriovenous malformation) brain ICD Code: Q28.2 Status: Acute (3) Agitation ICD Code: R45.1 Status: Acute (4) Hermila Ventriculitis Status: Resolved (5) CSF leak ICD Code: G96.0 Status: Resolved (6) HTN (hypertension) ICD Code: I10 Status: Chronic (7) Bacteremia due to Enterococcus ICD Code: R78.81 Status: Resolved (8) Normocytic anemia ICD Code: D64.9 Status: Acute (9) Protein calorie malnutrition ICD Code: E46 Status: Acute Assessment and Plan 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 - status post AVM embolization at [facility] followed by suboccipital craniotomy for hematoma evacuation and AVM resection - Keppra 500 mg twice a day for seizure prophylaxis - On Lopressor 50 mg po bid- good control -neurosurgery signed off -continue rehab efforts- -cognitive therapy ongoing- gradually improving CSF leak - repaired - no need for BIOTECH PRODUCTION SPECIALIST shunt at this time per NSGY - Continue Seroquel Hypertension - Metoprolol 25 mg every 12 hours - continue Telemetry Acute protein calorie malnutritionmild - Continue Jevity 1.5 goal 50 cc an hour - po intake not consistent --regular diet - dietitian ff along with us - Miralax 17 gm daily - Pepcid for GI prophylaxis - Continue Reglan for prokinetic agent - TF bolus regimen-- Normocytic anemia - H&H stable Hermila Ventriculitis - post intraventricular Amphotericin B administration. Last dose 06/30 - right ventriculostomy 06/03, replaced 06/12 - on po Dilfucan 800 mg daily- end date 08/07/16 per ID recommendations.- Dr. Coulter - no growth on a sample 06/23 - repeat CSF 06/30/2016 and 07/07/2016 no growth Enterococcus Bacteremia - Completed course of Vanc IV 06/24 GI Prophylaxis Pepcid 20 mg twice a day: DVT Prophylaxis - SCDs - Heparin subQ -continue PT/cognitive efforts SNF- CM trying to get him into one- SSI pending Discharge Planning needs placement. Problem Qualifiers (1) Cerebellar hemorrhage: Qualified Code: I61.4 - Nontraumatic intracerebral hemorrhage of cerebellum, unspecified laterality (2) HTN (hypertension): Qualified Code: I10 - Essential hypertension Jeison Neal MD Aug 08, 2016 15:31
[2016-08-08 16:00] VITALS: BP 108/68; PULSE 80; RESP 18; TEMP 97.6; O2SAT 98
[2016-08-08 20:29] VITALS: BP 120/87; PULSE 101; RESP 18; TEMP 99.5; O2SAT 96
[2016-08-09 00:21] VITALS: BP 128/81; PULSE 85; RESP 18; TEMP 98.3; O2SAT 98
[2016-08-09] MEDS: FREE WATER PEG SCH ×4 (04:00→22:44)
[2016-08-09] MEDS: CHLORHEXIDINE GLUCONATE 2 % 1 PACK (2 CLOTHS) TOP SCH (04:00)
[2016-08-09 04:35] VITALS: BP 139/84; PULSE 85; RESP 18; TEMP 97.6; O2SAT 98
[2016-08-09] MEDS: METOCLOPRAMIDE HCL 10 MG TAB PO SCH ×4 (07:00→22:44)
[2016-08-09 08:00] VITALS: BP 134/91; PULSE 82; RESP 18; TEMP 96.5; O2SAT 98
[2016-08-09] MEDS: POLYETHYLENE GLYCOL 17 GM PKG PO SCH ×2 (08:00→20:00)
[2016-08-09] MEDS: LACTIC ACID (AMMONIUM LACTATE) 12% LOTION 225 GM BTL TOPICAL SCH ×2 (09:00→22:48)
[2016-08-09] MEDS: SODIUM CHLORIDE 0.9% FLUSH 5 ML FLUSH IV FLUSH SCH ×2 (09:00→22:44)
[2016-08-09] MEDS: HEPARIN SODIUM - SQ 10,000 UNITS/ML VIAL SQ SCH ×2 (09:07→22:44)
[2016-08-09] MEDS: QUEtiapine FUMARATE 25 MG TAB PO SCH ×2 (09:07→22:44)
[2016-08-09] MEDS: levETIRAcetam 500 MG TAB PO SCH ×2 (09:07→22:44)
[2016-08-09] MEDS: FAMOTIDINE 20 MG TAB NG SCH ×2 (09:07→22:43)
[2016-08-09] MEDS: METOPROLOL TARTRATE 25 MG TAB PO SCH ×2 (09:07→22:44)
[2016-08-09] MEDS: THIAMINE HCL 100 MG TAB PO SCH (09:07)
--- NOTE | 2016-08-09 09:57 | HHI.PR ---
Subjective Remarks he appears depressed states he does not like the food we talk about changing TF nights only- and maybe he'll eat more we will change diet to regular he likes Ensure Objective Vitals Vital Signs Date Time Temp Pulse Resp B/P Pulse Ox O2 Delivery O2 Flow Rate FiO2 08/09/16 08:00 96.5 82 18 134/91 98 08/09/16 04:35 97.6 85 18 139/84 98 08/09/16 00:21 98.3 85 18 128/81 98 08/08/16 20:29 99.5 101 18 120/87 96 08/08/16 16:00 97.6 80 18 108/68 98 08/08/16 12:00 98.1 84 20 112/68 99 I/O 08/08/16 08/08/16 08/08/16 08/09/16 08/09/16 08/09/16 07:00 15:00 23:00 07:00 15:00 23:00 Intake Total 240 ml 240 ml Balance 240 ml 240 ml Intake Oral 240 ml 240 ml # Voids 1 1 # Bowel Movements 1 Result Diagram: 08/05/16 0658 08/05/16 0658 Imaging Last Impressions Shoulder X-Ray 08/01/16 0000 Signed Impressions: Service Date/Time: Monday, August 01, 2016 15:10 - CONCLUSION: Unremarkable limited examination of the left shoulder. Don López MD Head CT 07/15/16 0600 Signed Impressions: Service Date/Time: Friday, July 15, 2016 05:43 - CONCLUSION: 1. Fluid collection in the posterior soft tissues has significantly decreased in prominence. 2. Post surgical changes in the left cerebellum with previous occipital craniectomy. Altaf Alfaro MD Abdomen X-Ray 07/10/16 0937 Signed Impressions: Service Date/Time: July 09:57 - CONCLUSION: Stable nonspecific benign abdomen appearance Brian Vasquez MD Lower Extremity Ultrasound 07/05/16 0000 Signed Impressions: Service Date/Time: Tuesday, July 05, 2016 11:28 - CONCLUSION: Normal examination. Jese Malik MD Chest X-Ray 06/22/16 0000 Signed Impressions: Service Date/Time: Wednesday, June 22, 2016 12:54 - CONCLUSION: No acute cardiopulmonary disease identified. Tommy Ramirez MD ADDENDUM: There is a right arm PICC appropriately positioned, tip at the atriocaval junction. 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 - status post AVM embolization at [facility] followed by suboccipital craniotomy for hematoma evacuation and AVM resection - Keppra 500 mg twice a day for seizure prophylaxis - On Lopressor 50 mg po bid- good control -neurosurgery signed off -continue rehab efforts- -cognitive therapy ongoing- gradually improving CSF leak - repaired - no need for RESEARCH ASSOCIATE POLICY shunt at this time per NSGY - Continue Seroquel Hypertension - Metoprolol 25 mg every 12 hours - continue Telemetry Acute protein calorie malnutritionmild - Continue Jevity 1.5 goal 50 cc an hour - po intake not consistent --regular diet - dietitian ff along with us - Miralax 17 gm daily - Pepcid for GI prophylaxis - Continue Reglan for prokinetic agent - TF bolus regimen-- Normocytic anemia - H&H stable Hermila Ventriculitis - post intraventricular Amphotericin B administration. Last dose 06/30 - right ventriculostomy 06/03, replaced 06/12 - S/P Dilfucan 800 mg daily- end date 08/07/16 per ID recommendations.- Dr. Coulter - no growth on a sample 06/23 - repeat CSF 06/30/2016 and 07/07/2016 no growth Enterococcus Bacteremia - Completed course of Vanc IV 06/24 GI Prophylaxis Pepcid 20 mg twice a day: DVT Prophylaxis - SCDs - Heparin subQ -continue PT/cognitive efforts Depression -consider psychiatry consult SNF- CM trying to get him into one- SSI pending Discharge Planning needs placement. Jeison Neal MD Aug 09, 2016 09:57 - no growth on a sample 06/23 - repeat CSF 06/30/2016 and 07/07/2016 no growth Enterococcus Bacteremia - Completed course of Vanc IV 06/24 GI Prophylaxis Pepcid 20 mg twice a day: DVT Prophylaxis - SCDs - Heparin subQ -continue PT/cognitive efforts SNF- CM trying to get him into one- SSI pending Discharge Planning needs placement. Problem Qualifiers (1) Cerebellar hemorrhage: Qualified Code: I61.4 - Nontraumatic intracerebral hemorrhage of cerebellum, unspecified laterality (2) HTN (hypertension): Qualified Code: I10 - Essential hypertension Jeison Neal MD Aug 09, 2016 09:57
[2016-08-09 12:00] VITALS: BP 113/81; PULSE 97; RESP 16; TEMP 98.6; O2SAT 97
[2016-08-09 16:00] VITALS: BP 108/84; PULSE 94; RESP 18; TEMP 98.1; O2SAT 98
[2016-08-09 20:45] VITALS: BP 121/81; PULSE 119; RESP 22; TEMP 98.3; O2SAT 97
[2016-08-10 00:04] VITALS: BP 142/89; PULSE 107; RESP 18; TEMP 98.4; O2SAT 97
[2016-08-10] MEDS: CHLORHEXIDINE GLUCONATE 2 % 1 PACK (2 CLOTHS) TOP SCH (04:00)
[2016-08-10] MEDS: FREE WATER PEG SCH ×4 (04:00→20:54)
[2016-08-10 04:31] VITALS: BP 111/77; PULSE 87; RESP 18; TEMP 98.5; O2SAT 98
[2016-08-10] MEDS: METOCLOPRAMIDE HCL 10 MG TAB PO SCH ×4 (06:24→20:53)
[2016-08-10 08:00] VITALS: BP 124/85; PULSE 92; RESP 18; TEMP 98.3; O2SAT 97
[2016-08-10] MEDS: POLYETHYLENE GLYCOL 17 GM PKG PO SCH ×2 (08:00→20:00)
[2016-08-10] MEDS: SODIUM CHLORIDE 0.9% FLUSH 5 ML FLUSH IV FLUSH SCH ×2 (08:31→20:54)
[2016-08-10] MEDS: levETIRAcetam 500 MG TAB PO SCH ×2 (08:32→20:53)
[2016-08-10] MEDS: HEPARIN SODIUM - SQ 10,000 UNITS/ML VIAL SQ SCH ×2 (08:33→20:53)
[2016-08-10] MEDS: QUEtiapine FUMARATE 25 MG TAB PO SCH ×2 (08:33→20:53)
[2016-08-10] MEDS: FAMOTIDINE 20 MG TAB NG SCH (08:33)
[2016-08-10] MEDS: LACTIC ACID (AMMONIUM LACTATE) 12% LOTION 225 GM BTL TOPICAL SCH ×2 (08:33→21:02)
[2016-08-10] MEDS: METOPROLOL TARTRATE 25 MG TAB PO SCH ×2 (08:33→20:53)
[2016-08-10] MEDS: THIAMINE HCL 100 MG TAB PO SCH (08:33)
--- NOTE | 2016-08-10 09:13 | HHI.PR ---
Subjective Remarks discuss with patient and staff nurse bolus feedings seem to be working ate good breakfast and dinner last night very interactive Objective Vitals Vital Signs Date Time Temp Pulse Resp B/P Pulse Ox O2 Delivery O2 Flow Rate FiO2 08/10/16 08:00 98.3 92 18 124/85 97 08/10/16 04:31 98.5 87 18 111/77 98 08/10/16 00:04 98.4 107 18 142/89 97 08/09/16 20:45 98.3 119 22 121/81 97 08/09/16 16:00 98.1 94 18 108/84 98 08/09/16 12:00 98.6 97 16 113/81 97 I/O 08/09/16 08/09/16 08/09/16 08/10/16 08/10/16 08/10/16 07:00 15:00 23:00 07:00 15:00 23:00 Intake Total 480 ml Output Total 300 ml Balance 480 ml -300 ml Intake Oral 480 ml Output Urine Total 300 ml # Voids 1 2 1 # Bowel Movements 1 0 Imaging Last Impressions Shoulder X-Ray 08/01/16 0000 Signed Impressions: Service Date/Time: Monday, August 01, 2016 15:10 - CONCLUSION: Unremarkable limited examination of the left shoulder. Don López MD Head CT 07/15/16 0600 Signed Impressions: Service Date/Time: Friday, July 15, 2016 05:43 - CONCLUSION: 1. Fluid collection in the posterior soft tissues has significantly decreased in prominence. 2. Post surgical changes in the left cerebellum with previous occipital craniectomy. Altaf Alfaro MD Abdomen X-Ray 07/10/16 0937 Signed Impressions: Service Date/Time: July 09:57 - CONCLUSION: Stable nonspecific benign abdomen appearance Brian Vasquez MD Lower Extremity Ultrasound 07/05/16 0000 Signed Impressions: Service Date/Time: Tuesday, July 05, 2016 11:28 - CONCLUSION: Normal examination. Jese Malik MD Chest X-Ray 06/22/16 0000 Signed Impressions: Service Date/Time: Wednesday, June 22, 2016 12:54 - CONCLUSION: No acute cardiopulmonary disease identified. Tommy Ramirez MD ADDENDUM: There is a right arm PICC appropriately positioned, tip at the atriocaval junction. Brian Hu MD Objective Remarks awake and alert, oriented x 3 . 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 - status post AVM embolization at [facility] followed by suboccipital craniotomy for hematoma evacuation and AVM resection - Keppra 500 mg twice a day for seizure prophylaxis - On Lopressor 50 mg po bid- good control -neurosurgery signed off -continue rehab efforts- -cognitive therapy ongoing- gradually improving CSF leak - repaired - no need for GLEASON OPERATOR shunt at this time per NSGY - Continue Seroquel Hypertension - Metoprolol 25 mg every 12 hours - continue Telemetry Normocytic anemia - H&H stable Hermila Ventriculitis - S/Pt intraventricular Amphotericin B administration. Last dose 06/30 - right ventriculostomy 06/03, replaced 06/12 - S/P Dilfucan 800 mg daily- end date 08/07/16 per ID recommendations.- Dr. Coulter - no growth on a sample 06/23 - repeat CSF 06/30/2016 and 07/07/2016 no growth Enterococcus Bacteremia - Completed course of Vanc IV 06/24 Acute protein calorie malnutritionmild - Continue Jevity 1.5 goal 360 cc q 6 hours - po intake not consistent - on chopped meat --regular diet - dietitian ff along with us. on ensure julio flavor with each tray - Miralax 17 gm daily Pepcid for GI prophylaxis - Continue Reglan for prokinetic agent DVT Prophylaxis - SCDs - Heparin subQ -continue PT efforts /cognitive efforts Depression seem to be more interactive and smiling and motivated on today's exam - continue to monitor SNF- CM trying to get him into one- SSI pending Discharge Planning needs placement. Jeison Neal MD Aug 10, 2016 09:13 Jeison Neal MD Aug 10, 2016 09:13 Enterococcus Bacteremia - Completed course of Vanc IV 06/24 GI Prophylaxis Pepcid 20 mg twice a day: DVT Prophylaxis - SCDs - Heparin subQ -continue PT/cognitive efforts Depression seem to be more interactive and smiling and motivated on todaya's exam - continue to monitor SNF- CM trying to get him into one- SSI pending Discharge Planning needs placement. Problem Qualifiers (1) Cerebellar hemorrhage: Qualified Code: I61.4 - Nontraumatic intracerebral hemorrhage of cerebellum, unspecified laterality (2) HTN (hypertension): Qualified Code: I10 - Essential hypertension Jeison Neal MD Aug 10, 2016 09:13
[2016-08-10 12:00] VITALS: BP 125/86; PULSE 74; RESP 18; TEMP 96.6; O2SAT 100
[2016-08-10 16:00] VITALS: BP 139/68; PULSE 81; RESP 18; TEMP 97.6; O2SAT 98
[2016-08-10 19:40] VITALS: BP 135/88; PULSE 92; RESP 18; TEMP 99; O2SAT 97
[2016-08-10] MEDS: FAMOTIDINE 20 MG TAB PO SCH (20:53)
[2016-08-11] VITALS (7 sets, daily range): BP systolic 85–128; BP diastolic 62–91; PULSE 80–104; RESP 18–20; TEMP 95.7–98.6; O2SAT 94–99
[2016-08-11] MEDS: CHLORHEXIDINE GLUCONATE 2 % 1 PACK (2 CLOTHS) TOP SCH (04:00)
[2016-08-11] MEDS: FREE WATER PEG SCH ×4 (04:00→22:00)
[2016-08-11] MEDS: METOCLOPRAMIDE HCL 10 MG TAB PO SCH ×4 (05:50→21:25)
[2016-08-11] MEDS: SODIUM CHLORIDE 0.9% FLUSH 5 ML FLUSH IV FLUSH SCH ×2 (09:00→21:00)
[2016-08-11] MEDS: METOPROLOL TARTRATE 25 MG TAB PO SCH ×2 (09:17→21:24)
[2016-08-11] MEDS: THIAMINE HCL 100 MG TAB PO SCH (09:17)
[2016-08-11] MEDS: FAMOTIDINE 20 MG TAB PO SCH ×2 (09:17→21:33)
[2016-08-11] MEDS: HEPARIN SODIUM - SQ 10,000 UNITS/ML VIAL SQ SCH ×2 (09:17→21:24)
[2016-08-11] MEDS: levETIRAcetam 500 MG TAB PO SCH ×2 (09:18→21:25)
[2016-08-11] MEDS: QUEtiapine FUMARATE 25 MG TAB PO SCH ×2 (09:18→21:33)
[2016-08-11] MEDS: POLYETHYLENE GLYCOL 17 GM PKG PO SCH ×2 (09:18→21:27)
[2016-08-11] MEDS: LACTIC ACID (AMMONIUM LACTATE) 12% LOTION 225 GM BTL TOPICAL SCH ×2 (09:19→21:35)
--- NOTE | 2016-08-11 10:34 | HHI.PR ---
Subjective Remarks awake and alert, oriented speaks in soft voice ff all commands and moves all extremities spontaneously Objective Vitals Vital Signs Date Time Temp Pulse Resp B/P Pulse Ox O2 Delivery O2 Flow Rate FiO2 08/11/16 07:15 97.7 96 19 116/81 98 08/11/16 04:49 96.6 81 20 128/85 94 08/11/16 00:37 98.6 82 20 127/88 97 08/10/16 19:40 99.0 92 18 135/88 97 08/10/16 16:00 97.6 81 18 139/68 98 08/10/16 12:00 96.6 74 18 125/86 100 I/O 08/10/16 08/10/16 08/10/16 08/11/16 08/11/16 08/11/16 07:00 15:00 23:00 07:00 15:00 23:00 Intake Total 360 ml Balance 360 ml Oral Supplement 360 ml # Bowel Movements 1 Imaging Last Impressions Shoulder X-Ray 08/01/16 0000 Signed Impressions: Service Date/Time: Monday, August 01, 2016 15:10 - CONCLUSION: Unremarkable limited examination of the left shoulder. Don López MD Head CT 07/15/16 0600 Signed Impressions: Service Date/Time: Friday, July 15, 2016 05:43 - CONCLUSION: 1. Fluid collection in the posterior soft tissues has significantly decreased in prominence. 2. Post surgical changes in the left cerebellum with previous occipital craniectomy. Altaf Alfaro MD Abdomen X-Ray 07/10/16 0937 Signed Impressions: Service Date/Time: July 09:57 - CONCLUSION: Stable nonspecific benign abdomen appearance Brian Vasquez MD Lower Extremity Ultrasound 07/05/16 0000 Signed Impressions: Service Date/Time: Tuesday, July 05, 2016 11:28 - CONCLUSION: Normal examination. Jese Malik MD Chest X-Ray 06/22/16 0000 Signed Impressions: Service Date/Time: Wednesday, June 22, 2016 12:54 - CONCLUSION: No acute cardiopulmonary disease identified. Tommy Ramirez MD ADDENDUM: There is a right arm PICC appropriately positioned, tip at the atriocaval junction. Brian Hu MD Objective Remarks awake and alert, oriented x 3 . smiled speech clear and soft, ff all commands pupils equal lungs clear regular rhythm abdomen soft, PEG in place extremities no edema hand teletype telegrapher equal LE moves all extremities-- good peripheral pulses Procedures Right frontal [place] hole with placement of a ventriculostomy catheter Line: PICC Side: Right Location: Antecubital A/P Problem List: (1) Cerebellar hemorrhage ICD Code: I61.4 Status: Acute (2) AVM (arteriovenous malformation) brain ICD Code: Q28.2 Status: Acute (3) Agitation ICD Code: R45.1 Status: Acute (4) Hermila Ventriculitis Status: Resolved (5) CSF leak ICD Code: G96.0 Status: Resolved (6) HTN (hypertension) ICD Code: I10 Status: Chronic (7) Bacteremia due to Enterococcus ICD Code: R78.81 Status: Resolved (8) Normocytic anemia ICD Code: D64.9 Status: Acute (9) Protein calorie malnutrition ICD Code: E46 Status: Acute Assessment and Plan 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 Last dose 06/30 - right ventriculostomy 06/03, replaced 06/12 - S/P Dilfucan 800 mg daily- end date 08/07/16 per ID recommendations.- Dr. Coulter - no growth on a sample 06/23 - repeat CSF 06/30/2016 and 07/07/2016 no growth Enterococcus Bacteremia - Completed course of Vanc IV 06/24 Acute protein calorie malnutritionmild - Continue Jevity 1.5 goal 360 cc q 6 hours - po intake not consistent - on chopped meat --regular diet - dietitian ff along with us. on ensure julio flavor with each tray - Miralax 17 gm daily Pepcid for GI prophylaxis - Continue Reglan for prokinetic agent DVT Prophylaxis - SCDs - Heparin subQ -continue PT efforts /cognitive efforts SNF- CM trying to get him into one- SSI pending Discharge Planning needs placement. Problem Qualifiers (1) Cerebellar hemorrhage: Qualified Code: I61.4 - Nontraumatic intracerebral hemorrhage of cerebellum, unspecified laterality (2) HTN (hypertension): Qualified Code: I10 - Essential hypertension Jeison Neal MD Aug 11, 2016 10:12 Qualified Code: I10 - Essential hypertension Jeison Neal MD Aug 11, 2016 10:12
[2016-08-11] MEDS ORDERED: CITALOPRAM HYDROBROMIDE 20 MG TAB PO SCH (11:00)
[2016-08-12] VITALS: BP 124/91; PULSE 84; RESP 18; TEMP 95.7; O2SAT 99
[2016-08-12] MEDS: FREE WATER PEG SCH ×4 (04:00→22:00)
[2016-08-12] MEDS: CHLORHEXIDINE GLUCONATE 2 % 1 PACK (2 CLOTHS) TOP SCH (04:00)
[2016-08-12] MEDS: METOCLOPRAMIDE HCL 10 MG TAB PO SCH ×4 (06:23→20:18)
[2016-08-12] MEDS: SODIUM CHLORIDE 0.9% FLUSH 5 ML FLUSH IV FLUSH SCH ×2 (07:54→20:23)
[2016-08-12 08:00] VITALS: BP 120/91; PULSE 90; RESP 20; TEMP 97.6; O2SAT 98
[2016-08-12] MEDS: POLYETHYLENE GLYCOL 17 GM PKG PO SCH ×2 (08:00→20:17)
[2016-08-12] MEDS: METOPROLOL TARTRATE 25 MG TAB PO SCH ×2 (08:54→20:20)
[2016-08-12] MEDS: QUEtiapine FUMARATE 25 MG TAB PO SCH ×2 (08:54→20:17)
[2016-08-12] MEDS: FAMOTIDINE 20 MG TAB PO SCH ×2 (08:54→20:18)
[2016-08-12] MEDS: levETIRAcetam 500 MG TAB PO SCH ×2 (08:54→20:17)
[2016-08-12] MEDS: LACTIC ACID (AMMONIUM LACTATE) 12% LOTION 225 GM BTL TOPICAL SCH ×2 (08:55→20:27)
[2016-08-12] MEDS: THIAMINE HCL 100 MG TAB PO SCH (08:55)
[2016-08-12] MEDS: HEPARIN SODIUM - SQ 10,000 UNITS/ML VIAL SQ SCH ×2 (08:55→20:27)
[2016-08-12 12:00] VITALS: BP 110/78; PULSE 82; RESP 18; TEMP 96.4; O2SAT 97
[2016-08-12] MEDS: ACETAMIN 325 MG/BUTALBITAL 50 MG/CAFFEINE 40 MG TAB PO PRN (13:20)
--- NOTE | 2016-08-12 13:37 | HHI.PR ---
Subjective Remarks Patient was transferred from the [facility] to [place] yesterday. Review of records indicates that patient had an intracranial hemorrhage due to ruptured AVM on 05/03/16 and was intubated in the field. Dr. Flowers performed surgery on 05/04 with placement of a ventriculostomy catheter for hydrocephalus. 06/09 bacteremia treated with antibiotics. 06/12 CSF culture with keira treated with Fluconazole. Patient had been transferred to [facility] for AVM repair and then returned to [facility] for further recovery. Patient is to right frontal headache 01/12 similar to prior headaches. States he is sleepy. Initially the patient appeared lethargic but when I reevaluated him only a few minutes later he appeared awake and alert. Nurse indicates patient is at baseline. Objective Vitals Vital Signs Date Time Temp Pulse Resp B/P Pulse Ox O2 Delivery O2 Flow Rate FiO2 08/12/16 08:00 97.6 90 20 120/91 98 08/12/16 00:00 95.7 84 18 124/91 99 08/11/16 20:00 97.1 104 18 116/82 98 08/11/16 15:40 97.9 104 19 101/74 96 I/O 08/11/16 08/11/16 08/11/16 08/12/16 08/12/16 08/12/16 07:00 15:00 23:00 07:00 15:00 23:00 Intake Total 360 ml 1890 ml 720 ml Balance 360 ml 1890 ml 720 ml Oral Supplement 360 ml Tube Feeding 1440 ml 720 ml Other 450 ml # Voids 6 # Bowel Movements 2 Imaging Last Impressions Shoulder X-Ray 08/01/16 0000 Signed Impressions: Service Date/Time: Monday, August 01, 2016 15:10 - CONCLUSION: Unremarkable limited examination of the left shoulder. Don López MD Head CT 07/15/16 0600 Signed Impressions: Service Date/Time: Friday, July 15, 2016 05:43 - CONCLUSION: 1. Fluid collection in the posterior soft tissues has significantly decreased in prominence. 2. Post surgical changes in the left cerebellum with previous occipital craniectomy. Altaf Alfaro MD Abdomen X-Ray 07/10/16 0937 Signed Impressions: Service Date/Time: July 09:57 - CONCLUSION: Stable nonspecific benign abdomen appearance Brian Vasquez MD Lower Extremity Ultrasound 12/31/16 0000 Signed Impressions: Service Date/Time: Tuesday, July 05, 2016 11:28 - CONCLUSION: Normal examination. Jese Malik MD Chest X-Ray 06/22/16 0000 Signed Impressions: Service Date/Time: Wednesday, June 22, 2016 12:54 - CONCLUSION: No acute cardiopulmonary disease identified. Tommy Ramirez MD ADDENDUM: There is a right arm PICC appropriately positioned, tip at the atriocaval junction. Brian Hu MD Objective Remarks GENERAL: Well-developed patient in no apparent distress. HEAD: Atraumatic. Normocephalic. EYES: Pupils equal and round. No scleral icterus. No injection or drainage. Patient has some difficulty with EOM testing, but RN indicates he has some visual deficit. CARDIOVASCULAR: Regular rate and rhythm. RESPIRATORY: No accessory muscle use. Clear to auscultation. Breath sounds equal bilaterally. GASTROINTESTINAL: Abdomen soft, non-tender, nondistended. NEUROLOGICAL: Initially lethargic, but upon subsequent evaluation a few minutes later patient was awake and alert. No obvious cranial nerve deficits aside from possible visual impairment. 4/5 strength equal in bilateral hands and lower extremities aside from 5/5 dorsiflexion bilaterally. Normal speech. Patient believes he is in [place]. He believes it is September. When asked the year he repeatedly states the month. Procedures Right frontal [place] hole with placement of a ventriculostomy catheter Urinary Catheter: No Vascular Central Line Catheter: No A/P Problem List: (1) Cerebellar hemorrhage ICD Code: I61.4 Status: Acute (2) AVM (arteriovenous malformation) brain ICD Code: Q28.2 Status: Acute (3) Agitation ICD Code: R45.1 Status: Acute (4) Keira Ventriculitis Status: Resolved (5) CSF leak ICD Code: G96.0 Status: Resolved (6) HTN (hypertension) ICD Code: I10 Status: Chronic (7) Bacteremia due to Enterococcus ICD Code: R78.81 Status: Resolved (8) Normocytic anemia ICD Code: D64.9 Status: Acute (9) Protein calorie malnutrition ICD Code: E46 Status: Acute Assessment and Plan S/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 - status post AVM embolization at [facility] followed by suboccipital craniotomy for hematoma evacuation and AVM resection - Keppra 500 mg twice a day for seizure prophylaxis - neurosurgery signed off - continue PT/OT/ST. - cognitive therapy ongoing- gradually improving -Tylenol/Fioricet for HAs CSF leak - repaired - no need for CASH MANAGEMENT OFFICER shunt at this time per NSGY - Continue Seroquel Hypertension; hypotensive at 1600, but MAP normal. She has had episodes of hypotension in the past. -Metoprolol 25 mg every 12 hours Normocytic anemia -H&H stable Keira Ventriculitis - S/P intraventricular Amphotericin B administration. Last dose 06/30. - right ventriculostomy 06/03, replaced 06/12 - S/P Dilfucan end date 08/07/16 per ID recommendations. - Repeat 07/07 CSF studies without growth. Enterococcus Bacteremia - Completed course of Vanc IV 06/24 Acute protein calorie malnutrition: - Dietitian following. - Nocturnal: Jevity 1.5 @ 85mls/hr x 14hrs (5PM-7AM). Continue water flushes. Continue Ensure TID. - Speech therapy indicates mechanical soft diet and thin liquids in addition to tube feeds (chopped meat). GI prophylaxis: -Pepcid and Miralax for -Continue Reglan for prokinetic agent DVT Prophylaxis - SCDs - Heparin subQ Discharge Planning CM following Problem Qualifiers (1) Cerebellar hemorrhage: Qualified Code: I61.4 - Nontraumatic intracerebral hemorrhage of cerebellum, unspecified laterality (2) HTN (hypertension): Qualified Code: I10 - Essential hypertension Ivory Constantino Aug 12, 2016 13:36
[2016-08-12 16:00] VITALS: BP 99/73; PULSE 86; RESP 20; TEMP 97.1; O2SAT 96
[2016-08-12 20:00] VITALS: BP 102/74; PULSE 91; RESP 18; TEMP 96.7; O2SAT 97
[2016-08-13] VITALS: BP 123/80; PULSE 80; RESP 18; TEMP 97.1; O2SAT 99
[2016-08-13 04:00] VITALS: BP 117/78; PULSE 83; RESP 18; TEMP 97.1; O2SAT 99
[2016-08-13] MEDS: CHLORHEXIDINE GLUCONATE 2 % 1 PACK (2 CLOTHS) TOP SCH (04:00)
[2016-08-13] MEDS: METOCLOPRAMIDE HCL 10 MG TAB PO SCH ×4 (06:15→21:54)
[2016-08-13 08:00] VITALS: BP 112/82; PULSE 96; RESP 20; TEMP 97.8; O2SAT 96; O2SAT 99
[2016-08-13] MEDS: SODIUM CHLORIDE 0.9% FLUSH 5 ML FLUSH IV FLUSH SCH ×2 (09:00→21:00)
[2016-08-13] MEDS: ACETAMINOPHEN 325 MG TAB PO PRN (09:20)
[2016-08-13] MEDS: THIAMINE HCL 100 MG TAB PO SCH (09:21)
[2016-08-13] MEDS: METOPROLOL TARTRATE 25 MG TAB PO SCH ×2 (09:21→21:00)
[2016-08-13] MEDS: QUEtiapine FUMARATE 25 MG TAB PO SCH ×2 (09:22→21:53)
[2016-08-13] MEDS: levETIRAcetam 500 MG TAB PO SCH ×2 (09:22→21:53)
[2016-08-13] MEDS: FAMOTIDINE 20 MG TAB PO SCH ×2 (09:22→21:54)
[2016-08-13] MEDS: HEPARIN SODIUM - SQ 10,000 UNITS/ML VIAL SQ SCH ×2 (09:33→21:53)
[2016-08-13] MEDS: LACTIC ACID (AMMONIUM LACTATE) 12% LOTION 225 GM BTL TOPICAL SCH ×2 (09:34→21:58)
[2016-08-13] MEDS: FREE WATER PEG SCH ×3 (10:00→22:00)
[2016-08-13] MEDS: POLYETHYLENE GLYCOL 17 GM PKG PO SCH ×3 (12:02→21:52)
--- NOTE | 2016-08-13 12:13 | HHI.PR ---
Subjective Remarks Patient sleeping in day room. Does not answer questions but follows commands. Objective Vitals Vital Signs Date Time Temp Pulse Resp B/P Pulse Ox O2 Delivery O2 Flow Rate FiO2 08/13/16 08:00 97.8 96 20 112/82 99 08/13/16 04:00 97.1 83 18 117/78 99 08/13/16 00:00 97.1 80 18 123/80 99 08/12/16 20:00 96.7 91 18 102/74 97 08/12/16 16:00 97.1 86 20 99/73 96 I/O 08/12/16 08/12/16 08/12/16 08/13/16 08/13/16 08/13/16 07:00 15:00 23:00 07:00 15:00 23:00 Intake Total 720 ml 360 ml 120 ml Balance 720 ml 360 ml 120 ml Intake Oral 120 ml Tube Feeding 720 ml 360 ml # Voids 6 4 3 # Bowel Movements 2 0 1 Objective Remarks GENERAL: Well-developed patient in no apparent distress sleeping in chair in day room. HEAD: Atraumatic. Normocephalic. EYES: Pupils dilated but round, equal, and reactive. No scleral icterus. No injection or drainage. CARDIOVASCULAR: Regular rate and rhythm. RESPIRATORY: No accessory muscle use. RR normal. NEUROLOGICAL: Sleeping. Opens eyes with sternal rub but does not open eyes to voice. He follows commands while keeping his eyes closed. 4/5 strength equal in bilateral hands. Moves toes on command. Procedures Right frontal [place] hole with placement of a ventriculostomy catheter Urinary Catheter: No Vascular Central Line Catheter: No A/P Problem List: (1) Cerebellar hemorrhage ICD Code: I61.4 Status: Acute (2) AVM (arteriovenous malformation) brain ICD Code: Q28.2 Status: Acute (3) Agitation ICD Code: R45.1 Status: Acute (4) Hermila Ventriculitis Status: Resolved (5) CSF leak ICD Code: G96.0 Status: Resolved (6) HTN (hypertension) ICD Code: I10 Status: Chronic (7) Bacteremia due to Enterococcus ICD Code: R78.81 Status: Resolved (8) Normocytic anemia ICD Code: D64.9 Status: Acute (9) Protein calorie malnutrition ICD Code: E46 Status: Acute Assessment and Plan S/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 - status post AVM embolization at [facility] followed by suboccipital craniotomy for hematoma evacuation and AVM resection - Keppra 500 mg twice a day for seizure prophylaxis - neurosurgery signed off - Continue PT/OT - Tylenol/Fioricet for HAs - Cognitive evaluation was performed by speech therapy on 08/11; states the patient has made limited to no progress toward stated goals since initial eval on 06/04/16; patient is at new baseline and cognition varies day to day. ST signed off. - Continue PT. CSF leak - repaired - no need for CHYRON OPERATOR shunt at this time per NSGY - Continue Seroquel Hypertension; hypotensive at 1600, but MAP normal. She has had episodes of hypotension in the past. -Metoprolol 25 mg every 12 hours Normocytic anemia -H&H stable Hermila Ventriculitis - S/P intraventricular Amphotericin B administration. Last dose 06/30. - right ventriculostomy 06/03, replaced 06/12 - S/P Diflucan end date 08/07/16 per ID recommendations. - Repeat 07/07 CSF studies without growth. Enterococcus Bacteremia - Completed course of Vanc IV 06/24 Acute protein calorie malnutrition: - Dietitian following. - RN informs me patient's po intake is increased. Patient currently receiving boluses qid. Will change to Nocturnal: Jevity 1.5 @ 85mls/hr x 14hrs (5PM-7AM) per dietary recommendations on 08/10. - Continue free water flushes. Continue Ensure TID. - Speech therapy indicates mechanical soft diet and thin liquids in addition to tube feeds (chopped meat). GI prophylaxis: -Pepcid and Miralax for -Continue Reglan for prokinetic agent DVT Prophylaxis - SCDs - Heparin subQ Discharge Planning CM following Problem Qualifiers (1) Cerebellar hemorrhage: Qualified Code: I61.4 - Nontraumatic intracerebral hemorrhage of cerebellum, unspecified laterality (2) HTN (hypertension): Qualified Code: I10 - Essential hypertension Ivory Constantino Aug 13, 2016 12:13
[2016-08-13 20:00] VITALS: BP 100/74; PULSE 102; RESP 16; TEMP 98.5; O2SAT 96
[2016-08-14] MEDS: FREE WATER PEG SCH ×4 (04:00→22:00)
[2016-08-14] MEDS: METOCLOPRAMIDE HCL 10 MG TAB PO SCH ×4 (06:03→20:20)
[2016-08-14] MEDS: POLYETHYLENE GLYCOL 17 GM PKG PO SCH ×2 (08:07→20:00)
[2016-08-14] MEDS: FAMOTIDINE 20 MG TAB PO SCH ×2 (08:08→21:13)
[2016-08-14] MEDS: QUEtiapine FUMARATE 25 MG TAB PO SCH ×2 (08:08→20:20)
[2016-08-14] MEDS: METOPROLOL TARTRATE 25 MG TAB PO SCH ×2 (08:08→20:19)
[2016-08-14] MEDS: levETIRAcetam 500 MG TAB PO SCH ×2 (08:08→20:19)
[2016-08-14] MEDS: HEPARIN SODIUM - SQ 10,000 UNITS/ML VIAL SQ SCH ×2 (08:08→20:20)
[2016-08-14] MEDS: THIAMINE HCL 100 MG TAB PO SCH (08:08)
[2016-08-14] MEDS: SODIUM CHLORIDE 0.9% FLUSH 5 ML FLUSH IV FLUSH SCH ×2 (08:09→20:23)
[2016-08-14] MEDS: LACTIC ACID (AMMONIUM LACTATE) 12% LOTION 225 GM BTL TOPICAL SCH ×2 (08:09→20:21)
[2016-08-14 09:17] VITALS: BP 118/81; PULSE 101; RESP 18; TEMP 97.8; O2SAT 98
--- NOTE | 2016-08-14 12:29 | HHI.PR ---
Subjective Remarks Follow-up status post intracranial hemorrhage, ruptured AVM. No acute complaints. No change in clinical status. Patient speaking with occupational therapist when I enter the room. Objective Vitals Vital Signs Date Time Temp Pulse Resp B/P Pulse Ox O2 Delivery O2 Flow Rate FiO2 08/14/16 09:17 97.8 101 18 118/81 98 08/13/16 20:00 98.5 102 16 100/74 96 I/O 08/13/16 08/13/16 08/13/16 08/14/16 08/14/16 08/14/16 07:00 15:00 23:00 07:00 15:00 23:00 Intake Total 120 ml 840 ml 660 ml 1006 ml Balance 120 ml 840 ml 660 ml 1006 ml Intake Oral 120 ml 840 ml 660 ml Tube Feeding 1006 ml # Voids 3 2 3 2 # Bowel Movements 1 3 0 Objective Remarks GENERAL: Well-developed patient in no apparent distress sitting in chair. CARDIOVASCULAR: Regular rate and rhythm. RESPIRATORY: No accessory muscle use. CTAB. RR normal. GASTROINTESTINAL: Abdomen soft, non-tender, non-distended. NEUROLOGICAL: Awake and alert. Disoriented. [place] [facility], responds "7" when asked the month, and believes it is 1987. Procedures Right frontal [place] hole with placement of a ventriculostomy catheter Urinary Catheter: No Vascular Central Line Catheter: No A/P Problem List: (1) Cerebellar hemorrhage ICD Code: I61.4 Status: Acute (2) AVM (arteriovenous malformation) brain ICD Code: Q28.2 Status: Acute (3) Agitation ICD Code: R45.1 Status: Acute (4) Hermlia Ventriculitis Status: Resolved (5) CSF leak ICD Code: G96.0 Status: Resolved (6) HTN (hypertension) ICD Code: I10 Status: Chronic (7) Bacteremia due to Enterococcus ICD Code: R78.81 Status: Resolved (8) Normocytic anemia ICD Code: D64.9 Status: Acute (9) Protein calorie malnutrition ICD Code: E46 Status: Acute Assessment and Plan S/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 - status post AVM embolization at [facility] followed by suboccipital craniotomy for hematoma evacuation and AVM resection - Keppra 500 mg twice a day for seizure prophylaxis - neurosurgery signed off - Continue PT/OT - Tylenol/Fioricet for HAs - Cognitive evaluation was performed by speech therapy on 08/11; states the patient has made limited to no progress toward stated goals since initial eval on 06/04/16; patient is at new baseline and cognition varies day to day. ST signed off. - Continue PT. CSF leak - repaired - no need for PROGRAM DIRECTOR SCOUTING shunt at this time per NSGY - Continue Seroquel Hypertension: with episodes of hypotension -Metoprolol 25 mg every 12 hours Normocytic anemia -H&H stable Hermila Ventriculitis - S/P intraventricular Amphotericin B administration. Last dose 06/30. - right ventriculostomy 06/03, replaced 06/12 - S/P Diflucan end date 08/07/16 per ID recommendations. - Repeat 07/07 CSF studies without growth. Enterococcus Bacteremia - Completed course of Vanc IV 06/24 Acute protein calorie malnutrition: - Dietitian following. - 08/13: RN informed me patient's po intake has increased. Patient currently receiving boluses qid. Will change to Nocturnal: Jevity 1.5 @ 85mls/hr x 14hrs ( 5PM-7AM) per dietary recommendations on 08/10. - Continue free water flushes. Continue Ensure TID. - Speech therapy indicates mechanical soft diet and thin liquids in addition to tube feeds (chopped meat). GI prophylaxis: -Pepcid and Miralax for -Continue Reglan for prokinetic agent DVT Prophylaxis - SCDs - Heparin subQ Discharge Planning CM following. Patient will require OT and PT at rehab. Problem Qualifiers (1) Cerebellar hemorrhage: Qualified Code: I61.4 - Nontraumatic intracerebral hemorrhage of cerebellum, unspecified laterality (2) HTN (hypertension): Qualified Code: I10 - Essential hypertension Ivory Constantino Aug 14, 2016 12:29
[2016-08-14 20:00] VITALS: BP 119/87; PULSE 99; RESP 15; TEMP 97.9; O2SAT 99
[2016-08-15] MEDS: FREE WATER PEG SCH ×4 (04:00→22:17)
[2016-08-15] MEDS: METOCLOPRAMIDE HCL 10 MG TAB PO SCH ×4 (08:02→20:19)
[2016-08-15] MEDS: levETIRAcetam 500 MG TAB PO SCH ×2 (08:58→20:19)
[2016-08-15] MEDS: FAMOTIDINE 20 MG TAB PO SCH ×2 (08:58→20:20)
[2016-08-15] MEDS: METOPROLOL TARTRATE 25 MG TAB PO SCH ×2 (08:58→20:20)
[2016-08-15] MEDS: THIAMINE HCL 100 MG TAB PO SCH (08:58)
[2016-08-15] MEDS: QUEtiapine FUMARATE 25 MG TAB PO SCH ×2 (08:58→20:19)
[2016-08-15] MEDS: POLYETHYLENE GLYCOL 17 GM PKG PO SCH ×2 (08:58→20:20)
[2016-08-15 08:59] VITALS: BP 119/85; PULSE 100; RESP 18; TEMP 97.2; O2SAT 97
[2016-08-15] MEDS: HEPARIN SODIUM - SQ 10,000 UNITS/ML VIAL SQ SCH ×2 (08:59→20:20)
[2016-08-15] MEDS: SODIUM CHLORIDE 0.9% FLUSH 5 ML FLUSH IV FLUSH SCH ×2 (09:00→20:20)
[2016-08-15] MEDS: LACTIC ACID (AMMONIUM LACTATE) 12% LOTION 225 GM BTL TOPICAL SCH ×2 (09:00→20:21)
--- NOTE | 2016-08-15 09:24 | HHI.PR ---
Subjective Remarks Follow-up s/p intracranial hemorrhage. Patient states he cannot cough up his mucus. He states he has had a cough for a while. He denies any fevers or shortness of breath. He tells me he is not eating the food because the pancakes are "made out of wood". PT later informed me that patient did not ambulate because he was dizzy. Objective Vitals Vital Signs Date Time Temp Pulse Resp B/P Pulse Ox O2 Delivery O2 Flow Rate FiO2 08/15/16 08:59 97.2 100 18 119/85 97 08/14/16 20:00 97.9 99 15 119/87 99 08/14/16 20:00 97.9 99 15 119/87 99 I/O 08/14/16 08/14/16 08/14/16 08/15/16 08/15/16 08/15/16 07:00 15:00 23:00 07:00 15:00 23:00 Intake Total 1006 ml 120 ml 1610 ml Balance 1006 ml 120 ml 1610 ml Intake Oral 120 ml 120 ml Tube Feeding 1006 ml 1190 ml Other 300 ml # Voids 2 5 2 # Bowel Movements 0 1 2 Objective Remarks GENERAL: Well-developed patient in no apparent distress. CARDIOVASCULAR: Regular rate and rhythm. RESPIRATORY: No accessory muscle use. Patient has phlegm in his throat which he cannot cough up. When I encouraged patient to cough, cough is weak. On initial exam there were some rhonchi over the left lower lobe, but upon subsequent evaluation the lungs are clear to auscultation bilaterally. NEUROLOGICAL: Awake and alert. Does not make eye contact as he speaks, instead stares forward. Today he knows he is at [facility] in [facility], but he still believes it is September of 1987. Procedures Right frontal [place] hole with placement of a ventriculostomy catheter Urinary Catheter: No Vascular Central Line Catheter: No A/P Problem List: (1) Dizziness ICD Code: R42 Status: Acute (2) Cerebellar hemorrhage ICD Code: I61.4 Status: Acute (3) AVM (arteriovenous malformation) brain ICD Code: Q28.2 Status: Acute (4) Agitation ICD Code: R45.1 Status: Acute (5) Hermila Ventriculitis Status: Resolved (6) CSF leak ICD Code: G96.0 Status: Resolved (7) HTN (hypertension) ICD Code: I10 Status: Chronic (8) Bacteremia due to Enterococcus ICD Code: R78.81 Status: Resolved (9) Normocytic anemia ICD Code: D64.9 Status: Acute (10) Protein calorie malnutrition ICD Code: E46 Status: Acute Assessment and Plan Dizziness and hypotension: (08/15) Nurse called at 1015 stating patient was dizzy , but BP was stable at 109/83 although HR elevated at 114. -Orthostatics were ordered and reveal no orthostasis. BP rechecked at 1215 and was 93/80, but MAP preserved at 84. Patient has had intermittent episodes of hypotension in the past, but patient symptomatic today. Discussed with Dr. Galeas. -Order 500 mL bolus IV NS. Patient likely not adequately hydrating although is receiving 150 mL free water flushes [id number]. -Order CBC and BMP to evaluate for anemia, areli, or evidence of infection. -Monitor intake and output S/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 - status post AVM embolization at [facility] followed by suboccipital craniotomy for hematoma evacuation and AVM resection - Keppra 500 mg twice a day for seizure prophylaxis - neurosurgery signed off - Continue PT/OT - Tylenol/Fioricet for HAs - Cognitive evaluation was performed by speech therapy on 08/11; states the patient has made limited to no progress toward stated goals since initial eval on 06/04/16; patient is at new baseline and cognition varies day to day. ST signed off. - Continue PT. CSF leak - repaired - no need for MAILROOM MESSENGER shunt at this time per NSGY - Continue Seroquel Hypertension: with episodes of hypotension -Metoprolol 25 mg every 12 hours Normocytic anemia -H&H stable Hermila Ventriculitis - S/P intraventricular Amphotericin B administration. Last dose 06/30. - right ventriculostomy 06/03, replaced 06/12 - S/P Diflucan end date 08/07/16 per ID recommendations. - Repeat 1/2 CSF studies without growth. Enterococcus Bacteremia - Completed course of Vanc IV 06/24 Acute protein calorie malnutrition: - Dietitian following. - 08/13: RN informed me patient's po intake has increased. Patient currently receiving boluses qid. Will change to Nocturnal: Jevity 1.5 @ 85mls/hr x 14hrs ( 5PM-7AM) per dietary recommendations on 08/10. - Continue free water flushes. Continue Ensure TID. - Speech therapy indicates mechanical soft diet and thin liquids in addition to tube feeds (chopped meat). GI prophylaxis: -Pepcid and Miralax for -Continue Reglan for prokinetic agent DVT Prophylaxis - SCDs - Heparin subQ Patient has mucus production although cannot cough well. Afebrile. Lung exam benign. No chest x-ray necessary at this time. RT service requested to evaluate patient for possible Accapella use. Patient needs to ambulate to improve respiratory status. Discharge Planning CM following. Patient will require OT and PT at rehab. Problem Qualifiers (1) Cerebellar hemorrhage: Qualified Code: I61.4 - Nontraumatic intracerebral hemorrhage of cerebellum, unspecified laterality (2) HTN (hypertension): Qualified Code: I10 - Essential hypertension Ivory Constantino Aug 15, 2016 09:24
[2016-08-15 11:46] VITALS: BP_SYST 100; BP_SYST 108; BP_SYST 98; BP_DIAS 74; BP_DIAS 81; BP_DIAS 88; PULSE 65
[2016-08-15 12:22] VITALS: BP 93/80
[2016-08-15] MEDS ORDERED: SODIUM CHLORID 0.9% 500 ML INJ 500 ML IV ONE (12:45)
[2016-08-15 13:44] LABS: AUTOMATED NEUTROPHIL # 3.8 TH/MM3 (1.8-7.7); BASOPHIL # 0.1 TH/MM3 (0-0.2); BASOPHIL % 1.4 % (0.0-2.0); EOSINOPHIL # 0.1 TH/MM3 (0-0.4); EOSINOPHIL % 1.5 % (0.0-4.0); HEMATOCRIT 34.6 % (39.0-51.0); HEMO FLAGS DIFF FINAL; LYMPH % 20.7 % (9.0-44.0); LYMPHOCYTE # 1.2 TH/MM3 (1.0-4.8); MEAN CELL VOLUME 87.5 FL (80.0-100.0); MEAN CORPUSCULAR HEMOGLOBIN 28.8 PG (27.0-34.0); MONO % 8.6 % (0.0-8.0); NEUT % 67.8 % (16.0-70.0); PLATELET COUNT 234 TH/MM3 (150-450); RED BLOOD COUNT 3.96 MIL/MM3 (4.50-5.90); RED CELL DISTRIBUTION WIDTH 13.8 % (11.6-17.2); WHITE BLOOD COUNT 5.7 TH/MM3 (4.0-11.0)
[2016-08-15 13:57] LABS: POTASSIUM 4.7 MEQ/L (3.5-5.1)
[2016-08-15 14:00] LABS: BICARBONATE 30.8 MEQ/L (21.0-32.0)
[2016-08-15 20:00] VITALS: BP 111/83; PULSE 95; RESP 16; TEMP 98.9; O2SAT 97
[2016-08-16] MEDS: FREE WATER PEG SCH ×4 (03:48→23:47)
[2016-08-16] MEDS: METOCLOPRAMIDE HCL 10 MG TAB PO SCH ×5 (06:34→20:35)
[2016-08-16 08:00] VITALS: BP 107/75; PULSE 95; RESP 20; TEMP 98.6; O2SAT 98
[2016-08-16] MEDS: FAMOTIDINE 20 MG TAB PO SCH ×2 (08:48→20:35)
[2016-08-16] MEDS: THIAMINE HCL 100 MG TAB PO SCH (08:48)
[2016-08-16] MEDS: QUEtiapine FUMARATE 25 MG TAB PO SCH ×2 (08:48→20:35)
[2016-08-16] MEDS: levETIRAcetam 500 MG TAB PO SCH ×2 (08:48→20:35)
[2016-08-16] MEDS: HEPARIN SODIUM - SQ 10,000 UNITS/ML VIAL SQ SCH ×2 (08:49→20:36)
[2016-08-16] MEDS: METOPROLOL TARTRATE 25 MG TAB PO SCH ×2 (08:50→20:35)
[2016-08-16] MEDS: LACTIC ACID (AMMONIUM LACTATE) 12% LOTION 225 GM BTL TOPICAL SCH ×2 (08:51→20:36)
[2016-08-16] MEDS: SODIUM CHLORIDE 0.9% FLUSH 5 ML FLUSH IV FLUSH SCH ×2 (09:00→21:00)
--- NOTE | 2016-08-16 09:37 | HHI.PR ---
Subjective Remarks Follow-up s/p intracranial hemorrhage. Nurse informs me that the patient was seeing whales in the room earlier. When I addressed this with the patient, he denies any auditory or visual hallucinations. He states he has very vivid dreams. Denies any fevers or shortness of breath. Patient denies any "gurgling ". Objective Vitals Vital Signs Date Time Temp Pulse Resp B/P Pulse Ox O2 Delivery O2 Flow Rate FiO2 08/15/16 20:00 98.9 95 16 111/83 97 08/15/16 12:22 93/80 08/15/16 11:46 65 98/74 100/81 108/88 I/O 08/15/16 08/15/16 08/15/16 08/16/16 08/16/16 08/16/16 07:00 15:00 23:00 07:00 15:00 23:00 Intake Total 1610 ml 770 ml 370 ml 1300 ml 100 ml Output Total 500 ml 450 ml Balance 1610 ml 770 ml 370 ml 800 ml -350 ml Intake Oral 120 ml 120 ml 120 ml 100 ml IV Total 500 ml Tube Feeding 1190 ml 1000 ml Other 300 ml 150 ml 250 ml 300 ml Output Urine Total 500 ml 450 ml # Voids 2 5 # Bowel Movements 2 2 Result Diagram: 08/15/16 1312 08/15/16 1312 Objective Remarks GENERAL: Well-developed patient in no apparent distress. EYES: Pupils equal, normal in size. CARDIOVASCULAR: Regular rate and rhythm. RESPIRATORY: No accessory muscle use. CTAB. GASTROINTESTINAL: Abdomen soft, non-tender, non-distended. NEUROLOGICAL: Sleeping but arouses to voice after repeatedly calling his name. Becomes awake and alert. He knows he is at the hospital, thinks he is in [place]. He now knows the month is August, but he thinks it is 2007. 4/5 strength in bilateral upper and lower extremities. Normal speech. Procedures Right frontal Adams hole with placement of a ventriculostomy catheter Urinary Catheter: No Vascular Central Line Catheter: No A/P Problem List: (1) Dizziness ICD Code: R42 Status: Acute (2) Cerebellar hemorrhage ICD Code: I61.4 Status: Acute (3) AVM (arteriovenous malformation) brain ICD Code: Q28.2 Status: Acute (4) Agitation ICD Code: R45.1 Status: Acute (5) Hermila Ventriculitis Status: Resolved (6) CSF leak ICD Code: G96.0 Status: Resolved (7) HTN (hypertension) ICD Code: I10 Status: Chronic (8) Bacteremia due to Enterococcus ICD Code: R78.81 Status: Resolved (9) Normocytic anemia ICD Code: D64.9 Status: Acute (10) Protein calorie malnutrition ICD Code: E46 Status: Acute Assessment and Plan Dizziness and hypotension: Improved. BP 107/75 this morning. -Orthostatics were ordered and reveal no orthostasis. -S/p 500 mL bolus IV NS. Patient likely not adequately hydrating although is receiving 150 mL free water flushes [id number]. -CBC with normal white blood cell count. Hemoglobin stable at 11.4. BUN mildly elevated but relatively stable at 24; BMP otherwise unremarkable. 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 ST signed off. - Continue PT. CSF leak - repaired - no need for PASTE UP ARTIST APPRENTICE shunt at this time per NSGY - Continue Seroquel Hypertension: with episodes of hypotension -Metoprolol 25 mg every 12 hours Normocytic anemia -H&H stable Hermila Ventriculitis - S/P intraventricular Amphotericin B administration. Last dose 06/30. - right ventriculostomy 06/03, replaced 06/12 - S/P Diflucan end date 08/07/16 per ID recommendations. - Repeat 2 CSF studies without growth. Enterococcus Bacteremia - Completed course of Vanc IV 06/24 Acute protein calorie malnutrition: - Dietitian following. - Nocturnal feedings: Jevity 1.5 @ 85mls/hr x 14hrs (5PM-7AM) per dietary recommendations on 08/10. - Continue free water flushes. - Speech therapy indicates mechanical soft diet and thin liquids in addition to tube feeds (chopped meat). - Continue Ensure TID. GI prophylaxis: -Pepcid and Miralax for -Continue Reglan for prokinetic agent DVT Prophylaxis - SCDs - Heparin subQ Patient has mucus production although cannot cough well. Afebrile. Lung exam benign. No chest x-ray necessary at this time. RT service requested to evaluate patient for possible Accapella use. RT informs me patient was able to use it. Patient needs to ambulate to improve respiratory status. IS ordered as patient is bedridden most of the time. Discharge Planning CM following. Patient will require OT and PT at rehab. Problem Qualifiers (1) Cerebellar hemorrhage: Qualified Code: I61.4 - Nontraumatic intracerebral hemorrhage of cerebellum, unspecified laterality (2) HTN (hypertension): Qualified Code: I10 - Essential hypertension Ivory Constantino Aug 16, 2016 09:37
[2016-08-16] MEDS: POLYETHYLENE GLYCOL 17 GM PKG PO SCH ×2 (09:47→20:35)
[2016-08-16 09:51] VITALS: BP 118/73; PULSE 76; RESP 16; TEMP 98.6; O2SAT 98
[2016-08-16 20:00] VITALS: BP 107/82; PULSE 90; RESP 18; TEMP 97.9; O2SAT 97
[2016-08-17] VITALS: BP 107/75; PULSE 95; RESP 20; TEMP 98.6; O2SAT 98
[2016-08-17 04:00] VITALS: BP 106/72; PULSE 98; RESP 20; TEMP 97.1; O2SAT 98
[2016-08-17] MEDS: FREE WATER PEG SCH ×4 (04:29→22:41)
[2016-08-17] MEDS: METOCLOPRAMIDE HCL 10 MG TAB PO SCH ×4 (06:00→20:35)
[2016-08-17 08:00] VITALS: BP 99/76; PULSE 98; RESP 20; TEMP 98.3; O2SAT 95
--- NOTE | 2016-08-17 08:30 | HHI.PR ---
Subjective Remarks Follow-up status post intracranial hemorrhage. Patient states he "lost his catheter". Nurse states she is exchanging his condom catheter. No other complaints. Objective Vitals Vital Signs Date Time Temp Pulse Resp B/P Pulse Ox O2 Delivery O2 Flow Rate FiO2 08/17/16 08:00 98.3 98 20 99/76 95 08/17/16 04:00 97.1 98 20 106/72 98 08/17/16 00:00 98.6 95 20 107/75 98 08/16/16 20:00 97.9 90 18 107/82 97 I/O 08/16/16 08/16/16 08/16/16 08/17/16 08/17/16 08/17/16 07:00 15:00 23:00 07:00 15:00 23:00 Intake Total 1300 ml 730 ml 510 ml 180 ml Output Total 500 ml 1100 ml 850 ml Balance 800 ml -370 ml 510 ml -670 ml Intake Oral 580 ml 360 ml 180 ml Tube Feeding 1000 ml Other 300 ml 150 ml 150 ml Output Urine Total 500 ml 1100 ml 850 ml # Bowel Movements 2 2 4 Result Diagram: 08/15/16 1312 08/15/16 1312 Objective Remarks GENERAL: Well-developed patient in no apparent distress. EYES: Pupils equal, normal in size. CARDIOVASCULAR: Regular rate and rhythm. RESPIRATORY: No accessory muscle use. CTAB. GASTROINTESTINAL: Abdomen soft, non-tender, non-distended. NEUROLOGICAL: Awake and alert. He knows he is in [place], but he thinks it is September of 2006, baseline. Normal speech. 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 Patient has had similar episodes of hypotension in the past and tends to run low. He is also thin. -Orthostatics were ordered and reveal no orthostasis. -S/p 500 mL bolus IV NS. Patient likely not adequately hydrating although is receiving 150 mL free water flushes [id number]. -CBC with normal white blood cell count. Hemoglobin stable at 11.4. BUN mildly elevated but relatively stable at 24; BMP otherwise unremarkable. -Monitor intake and output. 08/17: Patient had -530 mL fluid balance in the last 24 hours. Nurse is informed to make sure patient is adequately hydrating po. He had 6 BMs over the last 24 hrs, but nurse states they are formed and small amounts each time. 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 followed by suboccipital craniotomy for hematoma evacuation and AVM resection - Keppra 500 mg twice a day for seizure prophylaxis - neurosurgery signed off - Continue PT/OT - Tylenol/Fioricet for HAs - Cognitive evaluation was performed by speech therapy on 08/11; states the patient has made limited to no progress toward stated goals since initial eval on 06/04/16; patient is at new baseline and cognition varies day to day. ST signed off. - Continue PT. CSF leak - repaired - no need for RETAIL AND RESTAURANT shunt at this time per NSGY - Continue Seroquel Hypertension: with episodes of hypotension -Metoprolol 25 mg every 12 hours with hold parameters. Normocytic anemia -H&H stable Hermila Ventriculitis - S/P intraventricular Amphotericin B administration. Last dose 06/30. - right ventriculostomy 06/03, replaced 06/12 - S/P Diflucan end date 08/07/16 per ID recommendations. - Repeat 2 CSF studies without growth. Enterococcus Bacteremia - Completed course of Vanc IV 06/24 Acute protein calorie malnutrition: - Dietitian following. - Nocturnal feedings: Jevity 1.5 @ 85mls/hr x 14hrs (5PM-7AM) per dietary recommendations on 08/10. - Continue free water flushes. - Speech therapy indicates mechanical soft diet and thin liquids in addition to tube feeds (chopped meat). - Continue Ensure TID. GI prophylaxis: -Pepcid and Miralax for -Continue Reglan for prokinetic agent DVT Prophylaxis - SCDs - Heparin subQ Patient had mucus production but could not cough well. Afebrile. Lung exam benign. No chest x-ray necessary at this time. RT service requested to evaluate patient for possible Accapella use. RT informs me patient was able to use it. Patient needs to ambulate to improve respiratory status. IS was ordered as patient is bedridden most of the time. Discharge Planning CM following. Patient will require OT and PT at rehab. Problem Qualifiers (1) Cerebellar hemorrhage: Qualified Code: I61.4 - Nontraumatic intracerebral hemorrhage of cerebellum, unspecified laterality (2) HTN (hypertension): Qualified Code: I10 - Essential hypertension Ivory Constantino Aug 17, 2016 08:30
[2016-08-17] MEDS: FAMOTIDINE 20 MG TAB PO SCH ×2 (08:59→20:35)
[2016-08-17] MEDS: levETIRAcetam 500 MG TAB PO SCH ×2 (08:59→20:35)
[2016-08-17] MEDS: HEPARIN SODIUM - SQ 10,000 UNITS/ML VIAL SQ SCH ×2 (08:59→20:36)
[2016-08-17] MEDS: POLYETHYLENE GLYCOL 17 GM PKG PO SCH ×2 (08:59→20:35)
[2016-08-17] MEDS: QUEtiapine FUMARATE 25 MG TAB PO SCH ×2 (08:59→20:35)
[2016-08-17] MEDS: THIAMINE HCL 100 MG TAB PO SCH (08:59)
[2016-08-17 09:00] VITALS: O2SAT 95
[2016-08-17] MEDS: METOPROLOL TARTRATE 25 MG TAB PO SCH ×2 (09:00→20:35)
[2016-08-17] MEDS: SODIUM CHLORIDE 0.9% FLUSH 5 ML FLUSH IV FLUSH SCH ×2 (09:00→21:00)
[2016-08-17] MEDS: LACTIC ACID (AMMONIUM LACTATE) 12% LOTION 225 GM BTL TOPICAL SCH ×2 (09:01→20:36)
[2016-08-17] MEDS: ACETAMIN 325 MG/BUTALBITAL 50 MG/CAFFEINE 40 MG TAB PO PRN (10:13)
[2016-08-17 20:00] VITALS: BP 103/86; PULSE 108; RESP 16; TEMP 98.7; O2SAT 97
[2016-08-18] MEDS: FREE WATER PEG SCH ×4 (05:54→22:00)
[2016-08-18] MEDS: METOCLOPRAMIDE HCL 10 MG TAB PO SCH ×4 (06:00→20:00)
[2016-08-18 08:00] VITALS: BP 132/89; PULSE 78; RESP 20; TEMP 97.9; O2SAT 96
[2016-08-18] MEDS: POLYETHYLENE GLYCOL 17 GM PKG PO SCH ×3 (08:00→20:00)
[2016-08-18] MEDS: SODIUM CHLORIDE 0.9% FLUSH 5 ML FLUSH IV FLUSH SCH ×2 (09:00→20:01)
[2016-08-18] MEDS: LACTIC ACID (AMMONIUM LACTATE) 12% LOTION 225 GM BTL TOPICAL SCH ×2 (09:00→20:01)
[2016-08-18] MEDS: THIAMINE HCL 100 MG TAB PO SCH (09:07)
[2016-08-18] MEDS: QUEtiapine FUMARATE 25 MG TAB PO SCH ×2 (09:07→19:59)
[2016-08-18] MEDS: HEPARIN SODIUM - SQ 10,000 UNITS/ML VIAL SQ SCH ×2 (09:07→20:00)
[2016-08-18] MEDS: METOPROLOL TARTRATE 25 MG TAB PO SCH ×2 (09:07→20:00)
[2016-08-18] MEDS: FAMOTIDINE 20 MG TAB PO SCH ×2 (09:07→20:00)
[2016-08-18] MEDS: levETIRAcetam 500 MG TAB PO SCH ×2 (09:07→19:59)
--- NOTE | 2016-08-18 13:14 | HHI.PR ---
Subjective Remarks Follow-up status post intracranial hemorrhage. No acute complaints. Objective Vitals Vital Signs Date Time Temp Pulse Resp B/P Pulse Ox O2 Delivery O2 Flow Rate FiO2 08/18/16 08:00 97.9 78 20 132/89 96 08/17/16 20:00 98.7 108 16 103/86 97 I/O 08/17/16 08/17/16 08/17/16 08/18/16 08/18/16 08/18/16 07:00 15:00 23:00 07:00 15:00 23:00 Intake Total 180 ml 750 ml 390 ml Output Total 850 ml 700 ml 400 ml Balance -670 ml 50 ml -10 ml Intake Oral 180 ml 600 ml 240 ml Other 150 ml 150 ml Output Urine Total 850 ml 700 ml 400 ml # Voids 5 # Bowel Movements 4 2 3 Result Diagram: 08/15/16 1312 08/15/16 1312 Objective Remarks GENERAL: Well-developed patient in no apparent distress sleeping when I enter the room. CARDIOVASCULAR: Regular rate and rhythm. RESPIRATORY: No accessory muscle use. CTAB. GASTROINTESTINAL: Abdomen soft, non-tender, non-distended. NEUROLOGICAL: Arouses to voice. Procedures Right frontal Greer hole with placement of a ventriculostomy catheter Urinary Catheter: No Vascular Central Line Catheter: No A/P Problem List: (1) Dizziness ICD Code: R42 Status: Acute (2) Cerebellar hemorrhage ICD Code: I61.4 Status: Acute (3) AVM (arteriovenous malformation) brain ICD Code: Q28.2 Status: Acute (4) Agitation ICD Code: R45.1 Status: Acute (5) Hermila Ventriculitis Status: Resolved (6) CSF leak ICD Code: G96.0 Status: Resolved (7) HTN (hypertension) ICD Code: I10 Status: Chronic (8) Bacteremia due to Enterococcus ICD Code: R78.81 Status: Resolved (9) Normocytic anemia ICD Code: D64.9 Status: Acute (10) Protein calorie malnutrition ICD Code: E46 Status: Acute Assessment and Plan Dizziness and hypotension: Hypotension resolved. BP normal at 132/89 this morning. -Orthostatics were ordered and reveal no orthostasis. -S/p 500 mL bolus IV NS. Patient likely not adequately hydrating although is receiving 150 mL free water flushes [id number]. -CBC with normal white blood cell count. Hemoglobin stable at 11.4. BUN mildly elevated but relatively stable at 24; BMP otherwise unremarkable. -Monitor intake and output. 08/17: Patient had -530 mL fluid balance in the last 24 hours. Nurse is informed to make sure patient is adequately hydrating po. He had 6 BMs over the last 24 hrs, but nurse states they are formed and small amounts each time. 08/18: Fluid balance improved. 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 ST signed off. - Continue PT. CSF leak - repaired - no need for DO ALL OPERATOR shunt at this time per NSGY - Continue Seroquel Hypertension: with episodes of hypotension -Metoprolol 25 mg every 12 hours with hold parameters. Normocytic anemia -H&H stable Hermila Ventriculitis - S/P intraventricular Amphotericin B administration. Last dose 06/30. - right ventriculostomy 06/03, replaced 06/12 - S/P Diflucan end date 08/07/16 per ID recommendations. - Repeat 1/2 CSF studies without growth. Enterococcus Bacteremia - Completed course of Vanc IV 06/24 Acute protein calorie malnutrition: - Dietitian following. - Nocturnal feedings: Jevity 1.5 @ 85mls/hr x 14hrs (5PM-7AM) per dietary recommendations on 08/10. - Continue free water flushes. - Speech therapy indicates mechanical soft diet and thin liquids in addition to tube feeds (chopped meat). - Continue Ensure TID. GI prophylaxis: -Pepcid and Miralax for -Continue Reglan for prokinetic agent DVT Prophylaxis - SCDs - Heparin subQ Resp: Incentive spirometry, Accapella Discharge Planning CM following. Patient will require OT and PT at rehab. Problem Qualifiers (1) Cerebellar hemorrhage: Qualified Code: I61.4 - Nontraumatic intracerebral hemorrhage of cerebellum, unspecified laterality (2) HTN (hypertension): Qualified Code: I10 - Essential hypertension Ivory Constantino Aug 18, 2016 13:14
[2016-08-18 20:00] VITALS: BP 127/85; PULSE 95; RESP 17; TEMP 98.2; O2SAT 98
[2016-08-19] MEDS: FREE WATER PEG SCH ×4 (04:00→22:00)
[2016-08-19] MEDS: METOCLOPRAMIDE HCL 10 MG TAB PO SCH ×4 (06:50→22:18)
[2016-08-19 08:00] VITALS: BP 114/84; PULSE 94; RESP 18; TEMP 98.5; O2SAT 95
[2016-08-19] MEDS: POLYETHYLENE GLYCOL 17 GM PKG PO SCH ×2 (08:52→20:00)
[2016-08-19] MEDS: levETIRAcetam 500 MG TAB PO SCH ×2 (08:53→22:19)
[2016-08-19] MEDS: HEPARIN SODIUM - SQ 10,000 UNITS/ML VIAL SQ SCH ×2 (08:53→22:15)
[2016-08-19] MEDS: METOPROLOL TARTRATE 25 MG TAB PO SCH ×2 (08:53→22:17)
[2016-08-19] MEDS: QUEtiapine FUMARATE 25 MG TAB PO SCH ×2 (08:53→22:19)
[2016-08-19] MEDS: FAMOTIDINE 20 MG TAB PO SCH ×2 (08:53→22:17)
[2016-08-19] MEDS: THIAMINE HCL 100 MG TAB PO SCH (08:53)
[2016-08-19] MEDS: LACTIC ACID (AMMONIUM LACTATE) 12% LOTION 225 GM BTL TOPICAL SCH ×2 (08:54→22:20)
[2016-08-19] MEDS: LOPERAMIDE HCL SOLN 2 MG/10 ML UDC TUBE PRN (08:55)
[2016-08-19] MEDS: SODIUM CHLORIDE 0.9% FLUSH 5 ML FLUSH IV FLUSH SCH (09:00)
[2016-08-19] MEDS ORDERED: ONDANSETRON ODT 4 MG TAB PO PRN (15:30)
--- NOTE | 2016-08-19 15:30 | HHI.PR ---
Subjective Remarks Patient seen and examined today. Patient denies any new complaints. No change in clinical status. Awaiting case management for discharge planning. Objective Vitals Vital Signs Date Time Temp Pulse Resp B/P Pulse Ox O2 Delivery O2 Flow Rate FiO2 08/19/16 08:00 98.5 94 18 114/84 95 08/18/16 20:00 98.2 95 17 127/85 98 I/O 08/18/16 08/18/16 08/18/16 08/19/16 08/19/16 08/19/16 07:00 15:00 23:00 07:00 15:00 23:00 Intake Total 280 ml 120 ml 1320 ml Balance 280 ml 120 ml 1320 ml Intake Oral 280 ml 120 ml 120 ml Tube Feeding 900 ml Other 300 ml # Voids 5 2 2 # Bowel Movements 3 1 1 Result Diagram: 08/15/16 1312 08/15/16 1312 Objective Remarks GENERAL: Well-developed, well-nourished, in no acute distress. alert and awake. Orientated to person only HEENT: Head is normocephalic without any lesions or masses noted. Facial features are symmetric. Eyes: Extraocular muscles are intact. Conjunctivae were clear. NECK: Supple without any masses. Trachea midline no deviation. No JVD, CARDIAC: Regular rhythm, regular rate. S1/S2 are heard. No murmurs gallops or rubs. LUNGS: Clear to auscultation bilaterally. No wheeze, rhonchi or rales. No use of accessory muscles on inspiration or expiration. ABDOMEN: Soft, nontender. Nondistended. Bowel sounds heard in all 4 quadrants. No organomegaly or masses. Negative rebound, negative guarding EXTREMITIES: No edema, pulses are equal bilaterally. No cyanosis or clubbing NEUROLOGY: Mood and affect appear appropriate. Cranial nerves II through XII grossly intact. 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 ST signed off. - Tylenol/Fioricet for HAs - Continue Seroquel Dizziness with episodes hypotension: Hypotension resolved. -Orthostatics were ordered and reveal no orthostasis. -receiving 150 mL free water flushes [id number]. Hypertension: with episodes of hypotension -Metoprolol 25 mg every 12 hours with hold parameters. Normocytic anemia -H&H stable Acute protein calorie malnutrition: Pre-albumin 18 - Dietitian following. Reconsult to evaluate for bolus feeding - Nocturnal feedings: Jevity 1.5 @ 85mls/hr x 14hrs (5PM-7AM) per dietary recommendations on 08/10. - Continue free water flushes. - Speech therapy indicates mechanical soft diet and thin liquids in addition to tube feeds (chopped meat). - Continue Ensure TID. Physical deconditioning - Continue PT/OT Hermila Ventriculitis, resolved - S/P intraventricular Amphotericin B administration. Last dose 06/30. - right ventriculostomy 06/03, replaced 06/12 - S/P Diflucan end date 08/07/16 per ID recommendations. - Repeat /2 CSF studies without growth. Enterococcus Bacteremia, resolved - Completed course of Vanc IV 06/24 GI prophylaxis: -Pepcid and Miralax for -Continue Reglan for prokinetic agent DVT Prophylaxis - SCDs - Heparin subQ Discharge Planning Discharge planning per case management. Upon reviewing medical records and discharge planning. It appears the patient does have social security pending. Records indicating that physical therapy and occupational therapy recommending rehabilitation placement Stanley Ruiz Aug 19, 2016 15:30
[2016-08-19 20:00] VITALS: BP 119/87; PULSE 116; RESP 20; TEMP 96.9; O2SAT 99
[2016-08-20] MEDS: FREE WATER PEG SCH ×4 (04:00→22:00)
[2016-08-20] MEDS: METOCLOPRAMIDE HCL 10 MG TAB PO SCH ×4 (06:40→20:22)
[2016-08-20] MEDS: ACETAMIN 325 MG/BUTALBITAL 50 MG/CAFFEINE 40 MG TAB PO PRN (06:46)
[2016-08-20 08:00] VITALS: BP 113/75; PULSE 80; RESP 18; TEMP 96.3; O2SAT 98
[2016-08-20] MEDS: levETIRAcetam 500 MG TAB PO SCH ×2 (09:49→20:22)
[2016-08-20] MEDS: QUEtiapine FUMARATE 25 MG TAB PO SCH ×2 (09:49→20:22)
[2016-08-20] MEDS: THIAMINE HCL 100 MG TAB PO SCH (09:50)
[2016-08-20] MEDS: FAMOTIDINE 20 MG TAB PO SCH ×2 (09:50→20:23)
[2016-08-20] MEDS: METOPROLOL TARTRATE 25 MG TAB PO SCH ×2 (09:50→20:24)
[2016-08-20] MEDS: HEPARIN SODIUM - SQ 10,000 UNITS/ML VIAL SQ SCH ×2 (09:51→20:23)
[2016-08-20] MEDS: POLYETHYLENE GLYCOL 17 GM PKG PO SCH ×2 (09:51→20:00)
[2016-08-20] MEDS: LACTIC ACID (AMMONIUM LACTATE) 12% LOTION 225 GM BTL TOPICAL SCH ×2 (09:52→20:26)
--- NOTE | 2016-08-20 10:07 | HHI.PR ---
Subjective Remarks Patient seen and examined today. Patient denies any new complaints. Reviewed dietary recommendations for bolus feeding. Objective Vitals Vital Signs Date Time Temp Pulse Resp B/P Pulse Ox O2 Delivery O2 Flow Rate FiO2 08/19/16 20:00 96.9 116 20 119/87 99 I/O 08/19/16 08/19/16 08/19/16 08/20/16 08/20/16 08/20/16 07:00 15:00 23:00 07:00 15:00 23:00 Intake Total 1320 ml 240 ml 120 ml 1573 ml Balance 1320 ml 240 ml 120 ml 1573 ml Intake Oral 120 ml 240 ml 120 ml Tube Feeding 900 ml 1273 ml Other 300 ml 300 ml # Voids 2 2 3 2 # Bowel Movements 1 1 2 0 Objective Remarks GENERAL: Well-developed, well-nourished, in no acute distress. alert and awake. Orientated to person only HEENT: Head is normocephalic without any lesions or masses noted. Facial features are symmetric. Eyes: Extraocular muscles are intact. Conjunctivae were clear. NECK: Supple without any masses. Trachea midline no deviation. No JVD, CARDIAC: Regular rhythm, regular rate. S1/S2 are heard. No murmurs gallops or rubs. LUNGS: Clear to auscultation bilaterally. No wheeze, rhonchi or rales. No use of accessory muscles on inspiration or expiration. ABDOMEN: Soft, nontender. Nondistended. Bowel sounds heard in all 4 quadrants. No organomegaly or masses. Negative rebound, negative guarding. PEG tube site clear without signs of infection EXTREMITIES: No edema, pulses are equal bilaterally. No cyanosis or clubbing NEUROLOGY: Mood and affect appear appropriate. Cranial nerves II through XII grossly intact. 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 ST signed off. - Tylenol/Fioricet for HAs - Continue Seroquel Dizziness with episodes hypotension: Hypotension resolved. -Orthostatics were ordered and reveal no orthostasis. -receiving 150 mL free water flushes [id number]. Hypertension: with episodes of hypotension -Metoprolol 25 mg every 12 hours with hold parameters. Normocytic anemia -H&H stable Acute protein calorie malnutrition: Pre-albumin 18 - Dietitian following. - Bolus feedings, Rec Jevity 1.5 w/ 1-can(240ml) @ 0600, 1000, 1400, 1800 and 2200 - Continue free water flushes. - Speech therapy indicates mechanical soft diet and thin liquids in addition to tube feeds (chopped meat). - Continue Ensure TID. Physical deconditioning - Continue PT/OT Hermila Ventriculitis, resolved - S/P intraventricular Amphotericin B administration. Last dose 06/30. - right ventriculostomy 06/03, replaced 06/12 - S/P Diflucan end date 08/07/16 per ID recommendations. - Repeat 1/2 CSF studies without growth. Enterococcus Bacteremia, resolved - Completed course of Vanc IV 06/24 GI prophylaxis: -Pepcid and Miralax for -Continue Reglan for prokinetic agent DVT Prophylaxis - SCDs - Heparin subQ Discharge Planning Discharge planning per case management. Upon reviewing medical records and discharge planning. It appears the patient does have social security pending. Records indicating that physical therapy and occupational therapy recommending rehabilitation placement Stanley Ruiz Aug 20, 2016 10:07
[2016-08-20 19:15] VITALS: BP 97/68; PULSE 80; RESP 16; TEMP 96.2; O2SAT 96
[2016-08-20 20:00] VITALS: BP 112/75
[2016-08-21] MEDS: FREE WATER PEG SCH ×4 (04:00→21:34)
[2016-08-21] MEDS: METOCLOPRAMIDE HCL 10 MG TAB PO SCH ×4 (05:49→21:32)
[2016-08-21 07:15] VITALS: BP 125/91; PULSE 82; RESP 22; TEMP 96.1; O2SAT 98
[2016-08-21] MEDS: POLYETHYLENE GLYCOL 17 GM PKG PO SCH ×2 (07:36→21:32)
[2016-08-21] MEDS: FAMOTIDINE 20 MG TAB PO SCH ×2 (08:28→21:33)
[2016-08-21] MEDS: METOPROLOL TARTRATE 25 MG TAB PO SCH ×2 (08:28→21:33)
[2016-08-21] MEDS: HEPARIN SODIUM - SQ 10,000 UNITS/ML VIAL SQ SCH ×2 (08:28→21:33)
[2016-08-21] MEDS: levETIRAcetam 500 MG TAB PO SCH ×2 (08:28→21:33)
[2016-08-21] MEDS: QUEtiapine FUMARATE 25 MG TAB PO SCH ×2 (08:28→21:33)
[2016-08-21] MEDS: THIAMINE HCL 100 MG TAB PO SCH (08:28)
[2016-08-21] MEDS: LACTIC ACID (AMMONIUM LACTATE) 12% LOTION 225 GM BTL TOPICAL SCH ×2 (08:28→21:34)
[2016-08-21] MEDS: LOPERAMIDE HCL SOLN 2 MG/10 ML UDC TUBE PRN (08:32)
--- NOTE | 2016-08-21 10:47 | HHI.PR ---
Subjective Remarks Patient seen and examined today. Patient denies any new complaints. No change in clinical status. This record was reviewed, no acute events overnight, no change in present treatment plan. Awaiting case management for discharge planning Objective Vitals Vital Signs Date Time Temp Pulse Resp B/P Pulse Ox O2 Delivery O2 Flow Rate FiO2 08/21/16 07:15 96.1 82 22 125/91 98 08/20/16 20:00 112/75 08/20/16 19:15 96.2 80 16 97/68 96 I/O 08/20/16 08/20/16 08/20/16 08/21/16 08/21/16 08/21/16 07:00 15:00 23:00 07:00 15:00 23:00 Intake Total 1573 ml 390 ml 340 ml Balance 1573 ml 390 ml 340 ml Tube Feeding 1273 ml 240 ml 240 ml Other 300 ml 150 ml 100 ml # Voids 2 2 2 2 # Bowel Movements 0 1 Objective Remarks GENERAL: Well-developed, well-nourished, in no acute distress. alert and awake. Orientated to person only HEENT: Head is normocephalic without any lesions or masses noted. Facial features are symmetric. Eyes: Extraocular muscles are intact. Conjunctivae were clear. NECK: Supple without any masses. Trachea midline no deviation. No JVD, CARDIAC: Regular rhythm, regular rate. S1/S2 are heard. No murmurs gallops or rubs. LUNGS: Clear to auscultation bilaterally. No wheeze, rhonchi or rales. No use of accessory muscles on inspiration or expiration. ABDOMEN: Soft, nontender. Nondistended. Bowel sounds heard in all 4 quadrants. No organomegaly or masses. Negative rebound, negative guarding. PEG tube site clear without signs of infection EXTREMITIES: No edema, pulses are equal bilaterally. No cyanosis or clubbing NEUROLOGY: Mood and affect appear appropriate. Cranial nerves II through XII grossly intact. 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 ST signed off. - Tylenol/Fioricet for HAs - Continue Seroquel Dizziness with episodes hypotension: Hypotension resolved. -Orthostatics were ordered and reveal no orthostasis. -receiving 150 mL free water flushes [id number]. Hypertension: with episodes of hypotension -Metoprolol 25 mg every 12 hours with hold parameters. Normocytic anemia -H&H stable Acute protein calorie malnutrition: Pre-albumin 18 - Dietitian following. - Bolus feedings, Rec Jevity 1.5 w/ 1-can(240ml) @ 0600, 1000, 1400, 1800 and 2200 - Continue free water flushes. - Speech therapy indicates mechanical soft diet and thin liquids in addition to tube feeds (chopped meat). - Continue Ensure TID. Physical deconditioning - Continue PT/OT Hermila Ventriculitis, resolved - S/P intraventricular Amphotericin B administration. Last dose 06/30. - right ventriculostomy 06/03, replaced 06/12 - S/P Diflucan end date 08/07/16 per ID recommendations. - Repeat /2 CSF studies without growth. Enterococcus Bacteremia, resolved - Completed course of Vanc IV 06/24 GI prophylaxis: -Pepcid and Miralax for -Continue Reglan for prokinetic agent DVT Prophylaxis - SCDs - Heparin subQ Discharge Planning Discharge planning per case management. Stanley Ruiz Aug 21, 2016 10:47
[2016-08-21 20:00] VITALS: BP 117/81; PULSE 86; RESP 18; TEMP 98.2; O2SAT 99
[2016-08-22] MEDS: FREE WATER PEG SCH ×4 (04:00→22:00)
[2016-08-22] MEDS: METOCLOPRAMIDE HCL 10 MG TAB PO SCH ×4 (05:32→22:08)
[2016-08-22 08:00] VITALS: BP 113/86; PULSE 101; RESP 20; TEMP 97.8; O2SAT 97
[2016-08-22] MEDS: METOPROLOL TARTRATE 25 MG TAB PO SCH ×2 (09:00→22:07)
[2016-08-22] MEDS: FAMOTIDINE 20 MG TAB PO SCH ×2 (09:00→22:08)
[2016-08-22] MEDS: levETIRAcetam 500 MG TAB PO SCH ×2 (09:00→22:06)
[2016-08-22] MEDS: THIAMINE HCL 100 MG TAB PO SCH (09:00)
[2016-08-22] MEDS: QUEtiapine FUMARATE 25 MG TAB PO SCH ×2 (09:00→22:07)
[2016-08-22] MEDS: POLYETHYLENE GLYCOL 17 GM PKG PO SCH ×2 (09:01→22:07)
[2016-08-22] MEDS: HEPARIN SODIUM - SQ 10,000 UNITS/ML VIAL SQ SCH ×2 (09:04→22:08)
[2016-08-22] MEDS: LACTIC ACID (AMMONIUM LACTATE) 12% LOTION 225 GM BTL TOPICAL SCH ×2 (09:10→22:08)
--- NOTE | 2016-08-22 10:10 | HHI.PR ---
Subjective Remarks Patient seen and examined today. Patient denies any new complaints. No change in clinical status. This record was reviewed, no acute events overnight, no change present renal plan rate awaiting case management for discharge planning Objective Vitals Vital Signs Date Time Temp Pulse Resp B/P Pulse Ox O2 Delivery O2 Flow Rate FiO2 08/22/16 08:00 97.8 101 20 113/86 97 08/21/16 20:00 98.2 86 18 117/81 99 I/O 08/21/16 08/21/16 08/21/16 08/22/16 08/22/16 08/22/16 07:00 15:00 23:00 07:00 15:00 23:00 Intake Total 340 ml 390 ml 480 ml Output Total 360 ml Balance 340 ml 390 ml 120 ml Intake Oral 480 ml Tube Feeding 240 ml 240 ml Other 100 ml 150 ml Output Urine Total 360 ml # Voids 2 5 # Bowel Movements 0 0 Objective Remarks GENERAL: Well-developed, well-nourished, in no acute distress. alert and awake. Orientated to person only HEENT: Head is normocephalic without any lesions or masses noted. Facial features are symmetric. Eyes: Extraocular muscles are intact. Conjunctivae were clear. NECK: Supple without any masses. Trachea midline no deviation. No JVD, CARDIAC: Regular rhythm, regular rate. S1/S2 are heard. No murmurs gallops or rubs. LUNGS: Clear to auscultation bilaterally. No wheeze, rhonchi or rales. No use of accessory muscles on inspiration or expiration. ABDOMEN: Soft, nontender. Nondistended. Bowel sounds heard in all 4 quadrants. No organomegaly or masses. Negative rebound, negative guarding. PEG tube site clear without signs of infection EXTREMITIES: No edema, pulses are equal bilaterally. No cyanosis or clubbing NEUROLOGY: Mood and affect appear appropriate. Cranial nerves II through XII grossly intact. 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 ST signed off. - Tylenol/Fioricet for HAs - Continue Seroquel Dizziness with episodes hypotension: Hypotension resolved. -Orthostatics were ordered and reveal no orthostasis. -receiving 150 mL free water flushes [id number]. Hypertension: with episodes of hypotension -Metoprolol 25 mg every 12 hours with hold parameters. Normocytic anemia -H&H stable Acute protein calorie malnutrition: Pre-albumin 18 - Dietitian following. - Bolus feedings, Rec Jevity 1.5 w/ 1-can(240ml) @ 0600, 1000, 1400, 1800 and 2200 - Continue free water flushes. - Speech therapy indicates mechanical soft diet and thin liquids in addition to tube feeds (chopped meat). - Continue Ensure TID. Physical deconditioning - Continue PT/OT Hermila Ventriculitis, resolved - S/P intraventricular Amphotericin B administration. Last dose 06/30. - right ventriculostomy 06/03, replaced 06/12 - S/P Diflucan end date 08/07/16 per ID recommendations. - Repeat /2 CSF studies without growth. Enterococcus Bacteremia, resolved - Completed course of Vanc IV 06/24 GI prophylaxis: -Pepcid and Miralax for -Continue Reglan for prokinetic agent DVT Prophylaxis - SCDs - Heparin subQ Discharge Planning Discharge planning per case management. Stanley Ruiz Aug 22, 2016 10:10
[2016-08-22 21:43] VITALS: BP 110/73; PULSE 63; RESP 16; TEMP 98.6; O2SAT 97
[2016-08-23] MEDS: FREE WATER PEG SCH ×4 (04:00→22:00)
[2016-08-23] MEDS: METOCLOPRAMIDE HCL 10 MG TAB PO SCH ×4 (05:43→20:55)
[2016-08-23 08:00] VITALS: BP 111/84; PULSE 92; RESP 18; TEMP 98.2; O2SAT 96
[2016-08-23] MEDS: POLYETHYLENE GLYCOL 17 GM PKG PO SCH ×2 (09:08→20:55)
[2016-08-23] MEDS: METOPROLOL TARTRATE 25 MG TAB PO SCH ×2 (09:10→20:57)
[2016-08-23] MEDS: levETIRAcetam 500 MG TAB PO SCH ×2 (09:10→20:56)
[2016-08-23] MEDS: THIAMINE HCL 100 MG TAB PO SCH (09:10)
[2016-08-23] MEDS: FAMOTIDINE 20 MG TAB PO SCH ×2 (09:10→20:56)
[2016-08-23] MEDS: QUEtiapine FUMARATE 25 MG TAB PO SCH ×2 (09:11→20:55)
[2016-08-23] MEDS: HEPARIN SODIUM - SQ 10,000 UNITS/ML VIAL SQ SCH ×2 (09:13→20:56)
[2016-08-23] MEDS: LACTIC ACID (AMMONIUM LACTATE) 12% LOTION 225 GM BTL TOPICAL SCH ×2 (09:16→20:57)
--- NOTE | 2016-08-23 10:23 | HHI.PR ---
Subjective Remarks Patient seen and examined today. Patient denies any new complaints. No change in clinical status. This record was reviewed, no acute events overnight, no change present treatment plan. Awaiting case management for discharge planning Objective Vitals Vital Signs Date Time Temp Pulse Resp B/P Pulse Ox O2 Delivery O2 Flow Rate FiO2 08/23/16 08:00 98.2 92 18 111/84 96 08/22/16 21:43 98.6 63 16 110/73 97 I/O 08/22/16 08/22/16 08/22/16 08/23/16 08/23/16 08/23/16 07:00 15:00 23:00 07:00 15:00 23:00 Intake Total 480 ml 120 ml 1320 ml Output Total 360 ml 300 ml 300 ml Balance 120 ml -180 ml 1320 ml -300 ml Intake Oral 480 ml 120 ml Oral Supplement 720 ml Other 600 ml Output Urine Total 360 ml 300 ml 300 ml # Voids 2 # Bowel Movements 0 1 0 Objective Remarks GENERAL: Well-developed, well-nourished, in no acute distress. alert and awake. Orientated to person only HEENT: Head is normocephalic without any lesions or masses noted. Facial features are symmetric. Eyes: Extraocular muscles are intact. Conjunctivae were clear. NECK: Supple without any masses. Trachea midline no deviation. No JVD, CARDIAC: Regular rhythm, regular rate. S1/S2 are heard. No murmurs gallops or rubs. LUNGS: Clear to auscultation bilaterally. No wheeze, rhonchi or rales. No use of accessory muscles on inspiration or expiration. ABDOMEN: Soft, nontender. Nondistended. Bowel sounds heard in all 4 quadrants. No organomegaly or masses. Negative rebound, negative guarding. PEG tube site clear without signs of infection EXTREMITIES: No edema, pulses are equal bilaterally. No cyanosis or clubbing NEUROLOGY: Mood and affect appear appropriate. Cranial nerves II through XII grossly intact. 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 ST signed off. - Tylenol/Fioricet for HAs - Continue Seroquel Dizziness with episodes hypotension: Hypotension resolved. -Orthostatics were ordered and reveal no orthostasis. -receiving 150 mL free water flushes [id number]. Hypertension: with episodes of hypotension -Metoprolol 25 mg every 12 hours with hold parameters. Normocytic anemia -H&H stable Acute protein calorie malnutrition: Pre-albumin 18 - Dietitian following. - Bolus feedings, Rec Jevity 1.5 w/ 1-can(240ml) @ 0600, 1000, 1400, 1800 and 2200 - Continue free water flushes. - Speech therapy indicates mechanical soft diet and thin liquids in addition to tube feeds (chopped meat). - Continue Ensure TID. Physical deconditioning - Continue PT/OT Hermila Ventriculitis, resolved - S/P intraventricular Amphotericin B administration. Last dose 06/30. - right ventriculostomy 06/03, replaced 06/12 - S/P Diflucan end date 08/07/16 per ID recommendations. - Repeat 1/2 CSF studies without growth. Enterococcus Bacteremia, resolved - Completed course of Vanc IV 06/24 GI prophylaxis: -Pepcid and Miralax for -Continue Reglan for prokinetic agent DVT Prophylaxis - SCDs - Heparin subQ Discharge Planning Discharge planning per case management. Stanley Ruiz Aug 23, 2016 10:23
[2016-08-23 20:00] VITALS: BP 101/70; PULSE 76; RESP 19; TEMP 98.7; O2SAT 96
[2016-08-24] MEDS: FREE WATER PEG SCH ×4 (04:00→21:26)
[2016-08-24] MEDS: METOCLOPRAMIDE HCL 10 MG TAB PO SCH ×4 (05:39→20:59)
[2016-08-24 08:00] VITALS: BP 114/85; PULSE 101; RESP 19; TEMP 97; O2SAT 99
[2016-08-24] MEDS: levETIRAcetam 500 MG TAB PO SCH ×2 (09:41→20:58)
[2016-08-24] MEDS: THIAMINE HCL 100 MG TAB PO SCH (09:41)
[2016-08-24] MEDS: FAMOTIDINE 20 MG TAB PO SCH ×2 (09:41→21:25)
[2016-08-24] MEDS: POLYETHYLENE GLYCOL 17 GM PKG PO SCH ×2 (09:41→20:58)
[2016-08-24] MEDS: QUEtiapine FUMARATE 25 MG TAB PO SCH ×2 (09:42→20:58)
--- NOTE | 2016-08-24 09:49 | HHI.PR ---
Subjective Remarks This record was reviewed, no acute events overnight, no change in present treatment plan. Awaiting case management for discharge planning. Patient seen and examined today. Patient denies any new complaints. No change in clinical status. Objective Vitals Vital Signs Date Time Temp Pulse Resp B/P Pulse Ox O2 Delivery O2 Flow Rate FiO2 08/24/16 08:00 97.0 101 19 114/85 99 08/23/16 20:00 98.7 76 19 101/70 96 I/O 08/23/16 08/23/16 08/23/16 08/24/16 08/24/16 08/24/16 07:00 15:00 23:00 07:00 15:00 23:00 Intake Total 400 ml 1340 ml 630 ml Output Total 300 ml Balance -300 ml 400 ml 1340 ml 630 ml Intake Oral 400 ml Tube Feeding 720 ml 480 ml Other 620 ml 150 ml Output Urine Total 300 ml # Voids 2 2 1 2 # Bowel Movements 0 1 1 1 Objective Remarks GENERAL: Well-developed, well-nourished, in no acute distress. alert and awake. Orientated to person only HEENT: Head is normocephalic without any lesions or masses noted. Facial features are symmetric. Eyes: Extraocular muscles are intact. Conjunctivae were clear. NECK: Supple without any masses. Trachea midline no deviation. No JVD, CARDIAC: Regular rhythm, regular rate. S1/S2 are heard. No murmurs gallops or rubs. LUNGS: Clear to auscultation bilaterally. No wheeze, rhonchi or rales. No use of accessory muscles on inspiration or expiration. ABDOMEN: Soft, nontender. Nondistended. Bowel sounds heard in all 4 quadrants. No organomegaly or masses. Negative rebound, negative guarding. PEG tube site clear without signs of infection EXTREMITIES: No edema, pulses are equal bilaterally. No cyanosis or clubbing NEUROLOGY: Mood and affect appear appropriate. Cranial nerves II through XII grossly intact. 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 ST signed off. - Tylenol/Fioricet for HAs - Continue Seroquel Dizziness with episodes hypotension: Hypotension resolved. -Orthostatics were ordered and reveal no orthostasis. -receiving 150 mL free water flushes [id number]. Hypertension: with episodes of hypotension -Metoprolol 25 mg every 12 hours with hold parameters. Decreased to 12.5 mg every 12 hours Normocytic anemia -H&H stable Acute protein calorie malnutrition: Pre-albumin 18 - Dietitian following. - Bolus feedings, Rec Jevity 1.5 w/ 1-can(240ml) @ 0600, 1000, 1400, 1800 and 2200 - Continue free water flushes. - Speech therapy indicates mechanical soft diet and thin liquids in addition to tube feeds (chopped meat). - Continue Ensure TID. Physical deconditioning - Continue PT/OT Hermila Ventriculitis, resolved - S/P intraventricular Amphotericin B administration. Last dose 06/30. - right ventriculostomy 06/03, replaced 06/12 - S/P Diflucan end date 08/07/16 per ID recommendations. - Repeat 1/2 CSF studies without growth. Enterococcus Bacteremia, resolved - Completed course of Vanc IV 06/24 GI prophylaxis: -Pepcid and Miralax for -Continue Reglan for prokinetic agent DVT Prophylaxis - Heparin subQ Discharge Planning Discharge planning per case management. Stanley Ruiz Aug 24, 2016 09:48
[2016-08-24] MEDS: HEPARIN SODIUM - SQ 10,000 UNITS/ML VIAL SQ SCH ×2 (09:51→20:59)
[2016-08-24] MEDS: LACTIC ACID (AMMONIUM LACTATE) 12% LOTION 225 GM BTL TOPICAL SCH ×2 (09:54→21:00)
[2016-08-24 20:00] VITALS: BP 89/70; PULSE 96; RESP 21; TEMP 98.6; O2SAT 95
[2016-08-24] MEDS: METOPROLOL TARTRATE 25 MG TAB PO SCH (21:00)
[2016-08-25] MEDS: FREE WATER PEG SCH ×4 (04:00→21:34)
[2016-08-25] MEDS: METOCLOPRAMIDE HCL 10 MG TAB PO SCH (06:35)
[2016-08-25 08:00] VITALS: BP 105/84; PULSE 94; RESP 20; TEMP 97.3; O2SAT 98
[2016-08-25] MEDS: POLYETHYLENE GLYCOL 17 GM PKG PO SCH (08:10)
[2016-08-25] MEDS: QUEtiapine FUMARATE 25 MG TAB PO SCH ×2 (08:49→21:31)
[2016-08-25] MEDS: levETIRAcetam 500 MG TAB PO SCH ×2 (08:49→21:31)
[2016-08-25] MEDS: METOPROLOL TARTRATE 25 MG TAB PO SCH ×2 (08:49→21:00)
[2016-08-25] MEDS: THIAMINE HCL 100 MG TAB PO SCH (08:49)
[2016-08-25] MEDS: FAMOTIDINE 20 MG TAB PO SCH ×2 (08:49→21:31)
[2016-08-25] MEDS: HEPARIN SODIUM - SQ 10,000 UNITS/ML VIAL SQ SCH ×2 (08:49→21:33)
[2016-08-25] MEDS: LACTIC ACID (AMMONIUM LACTATE) 12% LOTION 225 GM BTL TOPICAL SCH ×2 (08:50→21:34)
--- NOTE | 2016-08-25 11:12 | HHI.PR ---
Subjective Remarks Patient seen and examined today. Patient denies any new complaints. He is requesting nursing staff because he needs to be cleaned. Objective Vitals Vital Signs Date Time Temp Pulse Resp B/P Pulse Ox O2 Delivery O2 Flow Rate FiO2 08/25/16 08:00 97.3 94 20 105/84 98 08/24/16 20:00 98.6 96 21 89/70 95 I/O 08/24/16 08/24/16 08/24/16 08/25/16 08/25/16 08/25/16 07:00 15:00 23:00 07:00 15:00 23:00 Intake Total 630 ml 1080 ml 1620 ml 390 ml Balance 630 ml 1080 ml 1620 ml 390 ml Intake Oral 1080 ml IV Total 0 ml Tube Feeding 480 ml 970 ml 240 ml Other 150 ml 650 ml 150 ml # Voids 2 2 3 1 # Bowel Movements 1 1 0 0 Objective Remarks GENERAL: Well-developed, well-nourished, in no acute distress. alert and awake. Orientated to person only HEENT: Head is normocephalic without any lesions or masses noted. Facial features are symmetric. Eyes: Extraocular muscles are intact. Conjunctivae were clear. NECK: Supple without any masses. Trachea midline no deviation. No JVD, CARDIAC: Regular rhythm, regular rate. S1/S2 are heard. No murmurs gallops or rubs. LUNGS: Clear to auscultation bilaterally. No wheeze, rhonchi or rales. No use of accessory muscles on inspiration or expiration. ABDOMEN: Soft, nontender. Nondistended. Bowel sounds heard in all 4 quadrants. No organomegaly or masses. Negative rebound, negative guarding. PEG tube site clear without signs of infection EXTREMITIES: No edema, pulses are equal bilaterally. No cyanosis or clubbing NEUROLOGY: Mood and affect appear appropriate. Cranial nerves II through XII grossly intact. 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 ST signed off. - Tylenol/Fioricet for HAs - Continue Seroquel Dizziness with episodes hypotension: Hypotension resolved. -Orthostatics were ordered and reveal no orthostasis. -Increased to 150mL free water flushes [id number]. Hypertension: with episodes of hypotension -Metoprolol 12.5 mg every 12 hours with hold parameters. Consider discontinuing if blood pressure remains stable tomorrow Normocytic anemia -H&H stable Acute protein calorie malnutrition: Pre-albumin 18 - Dietitian following. - Bolus feedings, Rec Jevity 1.5 w/ 1-can(240ml) @ 0600, 1000, 1400, 1800 and 2200 - Continue free water flushes. - Speech therapy indicates mechanical soft diet and thin liquids in addition to tube feeds (chopped meat). - Continue Ensure TID. Physical deconditioning - Continue PT/OT Hermila Ventriculitis, resolved - S/P intraventricular Amphotericin B administration. Last dose 06/30. - right ventriculostomy 06/03, replaced 06/12 - S/P Diflucan end date 08/07/16 per ID recommendations. - Repeat /2 CSF studies without growth. Enterococcus Bacteremia, resolved - Completed course of Vanc IV 06/24 GI prophylaxis: -Pepcid and Miralax for -Continue Reglan for prokinetic agent DVT Prophylaxis - Heparin subQ Discharge Planning Discharge planning per case management. Stanley Ruiz Aug 25, 2016 11:12
[2016-08-25 20:00] VITALS: BP 94/72; PULSE 93; RESP 16; TEMP 97.8; O2SAT 98
[2016-08-25] MEDS ORDERED: POLYETHYLENE GLYCOL 17 GM PKG PO PRN (20:00)
[2016-08-25] MEDS: LOPERAMIDE HCL SOLN 2 MG/10 ML UDC TUBE PRN (21:36)
[2016-08-26] MEDS: FREE WATER PEG SCH ×4 (04:00→21:20)
[2016-08-26 07:15] VITALS: BP 118/87; PULSE 96; RESP 20; TEMP 98.2; O2SAT 97
[2016-08-26] MEDS: FAMOTIDINE 20 MG TAB PO SCH ×2 (09:00→21:18)
[2016-08-26] MEDS: METOPROLOL TARTRATE 25 MG TAB PO SCH ×2 (09:00→21:00)
[2016-08-26] MEDS: levETIRAcetam 500 MG TAB PO SCH ×2 (09:00→21:19)
[2016-08-26] MEDS: LACTIC ACID (AMMONIUM LACTATE) 12% LOTION 225 GM BTL TOPICAL SCH ×2 (09:01→21:21)
[2016-08-26] MEDS: QUEtiapine FUMARATE 25 MG TAB PO SCH ×2 (09:01→21:18)
[2016-08-26] MEDS: HEPARIN SODIUM - SQ 10,000 UNITS/ML VIAL SQ SCH ×2 (09:01→21:19)
--- NOTE | 2016-08-26 12:24 | HHI.PR ---
Subjective Remarks No acute complaints. No change in clinical status. Objective Vitals Vital Signs Date Time Temp Pulse Resp B/P Pulse Ox O2 Delivery O2 Flow Rate FiO2 08/26/16 07:15 98.2 96 20 118/87 97 08/25/16 20:00 97.8 93 16 94/72 98 I/O 08/25/16 08/25/16 08/25/16 08/26/16 08/26/16 08/26/16 07:00 15:00 23:00 07:00 15:00 23:00 Intake Total 390 ml 630 ml 2100 ml 590 ml Balance 390 ml 630 ml 2100 ml 590 ml Intake Oral 480 ml 240 ml 300 ml Tube Feeding 240 ml 960 ml 240 ml Other 150 ml 150 ml 900 ml 50 ml # Voids 1 1 2 2 # Bowel Movements 0 3 1 1 Objective Remarks GENERAL: Well-developed patient in no apparent distress. CARDIOVASCULAR: Regular rate and rhythm. RESPIRATORY: No accessory muscle use. CTAB. GASTROINTESTINAL: Abdomen soft, non-tender, non-distended. NEUROLOGICAL: Awake and alert. Patient believes he is at [facility] in April of 2008. Procedures Right frontal [place] hole with placement of a ventriculostomy catheter Urinary Catheter: No Vascular Central Line Catheter: No A/P Problem List: (1) Dizziness ICD Code: R42 Status: Acute (2) Cerebellar hemorrhage ICD Code: I61.4 Status: Acute (3) AVM (arteriovenous malformation) brain ICD Code: Q28.2 Status: Acute (4) Agitation ICD Code: R45.1 Status: Acute (5) Hermila Ventriculitis Status: Resolved (6) CSF leak ICD Code: G96.0 Status: Resolved (7) HTN (hypertension) ICD Code: I10 Status: Chronic (8) Bacteremia due to Enterococcus ICD Code: R78.81 Status: Resolved (9) Normocytic anemia ICD Code: D64.9 Status: Acute (10) Protein calorie malnutrition ICD Code: E46 Status: Acute Assessment and Plan S/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 - status post AVM embolization at [facility] followed by suboccipital craniotomy for hematoma evacuation and AVM resection - Keppra 500 mg twice a day for seizure prophylaxis - neurosurgery signed off - Continue PT/OT - Tylenol/Fioricet for HAs - Cognitive evaluation was performed by speech therapy on 08/11; states the patient has made limited to no progress toward stated goals since initial eval on 06/04/16; patient is at new baseline and cognition varies day to day. ST signed off. - Continue PT. CSF leak - repaired - no need for ENAMEL BURNER shunt at this time per NSGY - Continue Seroquel Dizziness with episodes of hypotension: Hypotension resolved. -Orthostatics were ordered and reveal no orthostasis. -Free water flushes Increased to 150mL [id number]. Hypertension: with episodes of hypotension -Metoprolol 25 mg every 12 hours with hold parameters. Continue discontinuation if BP remains stable. Normocytic anemia -H&H stable Hermila Ventriculitis - S/P intraventricular Amphotericin B administration. Last dose 06/30. - right ventriculostomy 06/03, replaced 06/12 - S/P Diflucan end date 08/07/16 per ID recommendations. - Repeat 2 CSF studies without growth. Enterococcus Bacteremia - Completed course of Vanc IV 06/24 Acute protein calorie malnutrition: - Dietitian following. - Nocturnal feedings: Jevity 1.5 @ 85mls/hr x 14hrs (5PM-7AM) per dietary recommendations on 08/10. - Continue free water flushes. - Speech therapy indicates mechanical soft diet and thin liquids in addition to tube feeds (chopped meat). - Continue Ensure TID. GI prophylaxis: -Pepcid and Miralax for -Continue Reglan for prokinetic agent DVT Prophylaxis - SCDs - Heparin subQ Resp: Incentive spirometry, [place] Discharge Planning CM following. Patient will require OT and PT at rehab. Patient is approved for SSI and needs payee. CM reached out to ambulatory service representative at [facility] to see if they will do this and take patient on for [facility] care. Problem Qualifiers (1) Cerebellar hemorrhage: Qualified Code: I61.4 - Nontraumatic intracerebral hemorrhage of cerebellum, unspecified laterality (2) HTN (hypertension): Qualified Code: I10 - Essential hypertension Ivory Constantino Aug 26, 2016 12:24 (2) HTN (hypertension): Qualified Code: I10 - Essential hypertension Ivory Constantino Aug 26, 2016 12:24
[2016-08-26 20:00] VITALS: BP 108/77; PULSE 84; RESP 18; TEMP 98.1; O2SAT 97
[2016-08-27] MEDS: FREE WATER PEG SCH ×4 (04:00→21:35)
[2016-08-27] MEDS: QUEtiapine FUMARATE 25 MG TAB PO SCH ×2 (08:17→21:33)
[2016-08-27] MEDS: levETIRAcetam 500 MG TAB PO SCH ×2 (08:17→21:33)
[2016-08-27] MEDS: HEPARIN SODIUM - SQ 10,000 UNITS/ML VIAL SQ SCH ×2 (08:17→21:32)
[2016-08-27] MEDS: METOPROLOL TARTRATE 25 MG TAB PO SCH ×2 (08:17→21:00)
[2016-08-27] MEDS: FAMOTIDINE 20 MG TAB PO SCH ×2 (08:17→21:33)
[2016-08-27 08:31] VITALS: BP 143/97; PULSE 83; RESP 15; TEMP 98.2; O2SAT 97
[2016-08-27] MEDS: LACTIC ACID (AMMONIUM LACTATE) 12% LOTION 225 GM BTL TOPICAL SCH ×2 (09:00→21:34)
--- NOTE | 2016-08-27 12:57 | HHI.PR ---
Subjective Remarks No acute complaints. No change in clinical status. Objective Vitals Vital Signs Date Time Temp Pulse Resp B/P Pulse Ox O2 Delivery O2 Flow Rate FiO2 08/27/16 08:31 98.2 83 15 143/97 97 08/26/16 20:00 98.1 84 18 108/77 97 I/O 08/26/16 08/26/16 08/26/16 08/27/16 08/27/16 08/27/16 07:00 15:00 23:00 07:00 15:00 23:00 Intake Total 590 ml 890 ml 200 ml Output Total 350 ml 400 ml Balance 590 ml 540 ml -200 ml Intake Oral 300 ml 890 ml 200 ml Tube Feeding 240 ml Other 50 ml Output Urine Total 350 ml 400 ml # Voids 2 2 # Bowel Movements 1 1 1 0 Objective Remarks GENERAL: Well-developed patient in no apparent distress. EYES: Pupils equal. CARDIOVASCULAR: Regular rate and rhythm. RESPIRATORY: No accessory muscle use. CTAB. GASTROINTESTINAL: Abdomen soft, non-tender, non-distended. NEUROLOGICAL: Awake and alert. Patient believes he is in [place]. He responds "8" when asked the month and year. Procedures Right frontal [place] hole with placement of a ventriculostomy catheter Urinary Catheter: No Vascular Central Line Catheter: No A/P Problem List: (1) Dizziness ICD Code: R42 Status: Acute (2) Cerebellar hemorrhage ICD Code: I61.4 Status: Acute (3) AVM (arteriovenous malformation) brain ICD Code: Q28.2 Status: Acute (4) Agitation ICD Code: R45.1 Status: Acute (5) Hermila Ventriculitis Status: Resolved (6) CSF leak ICD Code: G96.0 Status: Resolved (7) HTN (hypertension) ICD Code: I10 Status: Chronic (8) Bacteremia due to Enterococcus ICD Code: R78.81 Status: Resolved (9) Normocytic anemia ICD Code: D64.9 Status: Acute (10) Protein calorie malnutrition ICD Code: E46 Status: Acute Assessment and Plan 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 ST signed off. - Continue PT. CSF leak - repaired - no need for DEXIGRAPH OPERATOR shunt at this time per NSGY - Continue Seroquel Dizziness with episodes of hypotension: Hypotension resolved. -Orthostatics were ordered and reveal no orthostasis. -Free water flushes Increased to 150mL [id number]. Hypertension: with episodes of hypotension -Metoprolol 25 mg every 12 hours with hold parameters. Normocytic anemia -H&H stable Hermila Ventriculitis - S/P intraventricular Amphotericin B administration. Last dose 06/30. - right ventriculostomy 06/03, replaced 06/12 - S/P Diflucan end date 08/07/16 per ID recommendations. - Repeat 2 CSF studies without growth. Enterococcus Bacteremia - Completed course of Vanc IV 06/24 Acute protein calorie malnutrition: - Dietitian following. - Nocturnal feedings: Jevity 1.5 @ 85mls/hr x 14hrs (5PM-7AM) per dietary recommendations on 08/10. - Continue free water flushes. - Speech therapy indicates mechanical soft diet and thin liquids in addition to tube feeds (chopped meat). - Continue Ensure TID. GI prophylaxis: -Pepcid and Miralax for -Continue Reglan for prokinetic agent DVT Prophylaxis - SCDs - Heparin subQ Resp: Incentive spirometry, Accapella Discharge Planning CM following. Patient will require OT and PT at rehab. Patient is approved for SSI and needs payee. CM reached out to financial service representative at [facility] to see if they will do this and take patient on for halfway care. Problem Qualifiers (1) Cerebellar hemorrhage: Qualified Code: I61.4 - Nontraumatic intracerebral hemorrhage of cerebellum, unspecified laterality (2) HTN (hypertension): Qualified Code: I10 - Essential hypertension Ivory Constantino Aug 27, 2016 12:57
[2016-08-27 20:00] VITALS: BP 107/79; PULSE 86; RESP 16; TEMP 97.1
[2016-08-28] MEDS: FREE WATER PEG SCH ×4 (04:00→22:38)
[2016-08-28 08:39] VITALS: BP 117/87; PULSE 116; RESP 18; TEMP 97.4; O2SAT 92
[2016-08-28] MEDS: levETIRAcetam 500 MG TAB PO SCH ×2 (09:33→20:45)
[2016-08-28] MEDS: QUEtiapine FUMARATE 25 MG TAB PO SCH ×2 (09:33→20:45)
[2016-08-28] MEDS: HEPARIN SODIUM - SQ 10,000 UNITS/ML VIAL SQ SCH ×2 (09:33→20:46)
[2016-08-28] MEDS: METOPROLOL TARTRATE 25 MG TAB PO SCH ×2 (09:33→20:45)
[2016-08-28] MEDS: FAMOTIDINE 20 MG TAB PO SCH ×2 (09:33→20:45)
[2016-08-28] MEDS: LACTIC ACID (AMMONIUM LACTATE) 12% LOTION 225 GM BTL TOPICAL SCH ×2 (09:34→20:46)
--- NOTE | 2016-08-28 13:04 | HHI.PR ---
Subjective Remarks Patient has no acute complaints. Nurse informs me that the patient is getting full after bolus feeds and then cannot eat by mouth. Objective Vitals Vital Signs Date Time Temp Pulse Resp B/P Pulse Ox O2 Delivery O2 Flow Rate FiO2 08/28/16 08:39 97.4 116 18 117/87 92 08/27/16 20:00 97.1 86 16 107/79 I/O 08/27/16 08/27/16 08/27/16 08/28/16 08/28/16 08/28/16 07:00 15:00 23:00 07:00 15:00 23:00 Intake Total 200 ml 630 ml 630 ml Output Total 400 ml 655 ml 550 ml Balance -200 ml -25 ml 80 ml Intake Oral 200 ml 240 ml 240 ml Tube Feeding 240 ml 240 ml Other 150 ml 150 ml Output Urine Total 400 ml 650 ml 550 ml Gastric Drainage Total 5 ml # Bowel Movements 0 2 1 1 Objective Remarks GENERAL: Pleasant well-developed patient in no apparent distress. CARDIOVASCULAR: Regular rate and rhythm. RESPIRATORY: No accessory muscle use. CTAB. GASTROINTESTINAL: Abdomen soft, non-tender, non-distended. NEUROLOGICAL: Awake and alert. Normal speech. Procedures Right frontal Tommy hole with placement of a ventriculostomy catheter Urinary Catheter: No Vascular Central Line Catheter: No A/P Problem List: (1) Dizziness ICD Code: R42 Status: Acute (2) Cerebellar hemorrhage ICD Code: I61.4 Status: Acute (3) AVM (arteriovenous malformation) brain ICD Code: Q28.2 Status: Acute (4) Agitation ICD Code: R45.1 Status: Acute (5) Hermila Ventriculitis Status: Resolved (6) CSF leak ICD Code: G96.0 Status: Resolved (7) HTN (hypertension) ICD Code: I10 Status: Chronic (8) Bacteremia due to Enterococcus ICD Code: R78.81 Status: Resolved (9) Normocytic anemia ICD Code: D64.9 Status: Acute (10) Protein calorie malnutrition ICD Code: E46 Status: Acute Assessment and Plan 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 ST signed off. - Continue PT. CSF leak - repaired - no need for BOND MANAGER shunt at this time per NSGY - Continue Seroquel Dizziness with episodes of hypotension: Hypotension resolved. -Orthostatics were ordered and reveal no orthostasis. -Free water flushes Increased to 150mL [id number]. Hypertension: with episodes of hypotension -Metoprolol 25 mg every 12 hours with hold parameters. Normocytic anemia -H&H stable Hermila Ventriculitis - S/P intraventricular Amphotericin B administration. Last dose 06/30. - right ventriculostomy 06/03, replaced 06/12 - S/P Diflucan end date 08/07/16 per ID recommendations. - Repeat 07/07 CSF studies without growth. Enterococcus Bacteremia - Completed course of Vanc IV 06/24 Acute protein calorie malnutrition: -Patient was receiving continuous nocturnal feeding but was switched back to bolus feeds on 08/25. Nurse tells me today that patient gets full after the bolus feed and then cannot eat by mouth. I spoke with dietitian today who states the patient still had decreased daytime po intake even with nocturnal feeds. The patient's by mouth intake was good yesterday. Dietitian states that she will evaluate patient tomorrow and start a calorie count over the weekend. I informed the nurse that the percentage of meals eaten needs to be documented consistently. - Continue free water flushes. - Speech therapy indicates mechanical soft diet and thin liquids in addition to tube feeds (chopped meat). - Continue Ensure TID. GI prophylaxis: -Pepcid and Miralax for -Continue Reglan for prokinetic agent DVT Prophylaxis - SCDs - Heparin subQ Resp: Incentive spirometry, Accapella Discharge Planning CM following. Patient will require OT and PT at rehab. Patient is approved for SSI and needs payee. CM reached out to lifeline representatives at [facility] to see if they will do this and take patient on for assisted care. Problem Qualifiers (1) Cerebellar hemorrhage: Qualified Code: I61.4 - Nontraumatic intracerebral hemorrhage of cerebellum, unspecified laterality (2) HTN (hypertension): Qualified Code: I10 - Essential hypertension Ivory Constantino Aug 28, 2016 13:04
[2016-08-28 20:00] VITALS: BP 114/79; PULSE 80; RESP 16; TEMP 97.8; O2SAT 97
[2016-08-28] MEDS: ACETAMIN 325 MG/BUTALBITAL 50 MG/CAFFEINE 40 MG TAB PO PRN (20:44)
[2016-08-29] MEDS: FREE WATER PEG SCH ×4 (03:59→21:41)
[2016-08-29 08:00] VITALS: BP 121/82; PULSE 82; RESP 18; TEMP 98.3; O2SAT 98
[2016-08-29] MEDS: QUEtiapine FUMARATE 25 MG TAB PO SCH ×2 (09:03→20:55)
[2016-08-29] MEDS: FAMOTIDINE 20 MG TAB PO SCH ×2 (09:03→20:55)
[2016-08-29] MEDS: HEPARIN SODIUM - SQ 10,000 UNITS/ML VIAL SQ SCH ×2 (09:03→20:55)
[2016-08-29] MEDS: levETIRAcetam 500 MG TAB PO SCH ×2 (09:03→20:55)
[2016-08-29] MEDS: LACTIC ACID (AMMONIUM LACTATE) 12% LOTION 225 GM BTL TOPICAL SCH ×2 (09:04→20:56)
[2016-08-29] MEDS: METOPROLOL TARTRATE 25 MG TAB PO SCH ×2 (09:04→20:55)
--- NOTE | 2016-08-29 09:15 | HHI.PR ---
Subjective Remarks Nurse informs me the patient was hallucinating again this morning stating that he wanted to turn off the TV with something on the wall but there was nothing on the wall. This seems to only occur in the morning when the patient awakens and he has told me in the past that he has vivid dreams. Patient is appropriate on interview; tells me he wanted to shut off the SCD machine, but he is informed he needs to continue SCDs. Desires to do hand exercises. Objective Vitals Vital Signs Date Time Temp Pulse Resp B/P Pulse Ox O2 Delivery O2 Flow Rate FiO2 08/29/16 08:00 98.3 82 18 121/82 98 08/28/16 20:00 97.8 80 16 114/79 97 I/O 08/28/16 08/28/16 08/28/16 08/29/16 08/29/16 08/29/16 07:00 15:00 23:00 07:00 15:00 23:00 Intake Total 630 ml 720 ml 350 ml 120 ml Output Total 550 ml 1150 ml 400 ml Balance 80 ml 720 ml -800 ml -280 ml Intake Oral 240 ml 350 ml 120 ml Tube Feeding 240 ml 720 ml Other 150 ml Output Urine Total 550 ml 1150 ml 400 ml # Bowel Movements 1 1 0 1 Objective Remarks GENERAL: Pleasant well-developed patient in no apparent distress. CARDIOVASCULAR: Regular rate and rhythm. RESPIRATORY: No accessory muscle use. CTAB. GASTROINTESTINAL: Normoactive bowel sounds. Abdomen soft, non-tender, non- distended. NEUROLOGICAL: Awake and alert. 4/5 dowel pin worker strength bilaterally. 5/5 quadriceps strength bilaterally. Normal speech. Procedures Right frontal [place] hole with placement of a ventriculostomy catheter Urinary Catheter: No Vascular Central Line Catheter: No A/P Problem List: (1) Dizziness ICD Code: R42 Status: Acute (2) Cerebellar hemorrhage ICD Code: I61.4 Status: Acute (3) AVM (arteriovenous malformation) brain ICD Code: Q28.2 Status: Acute (4) Agitation ICD Code: R45.1 Status: Acute (5) Hermila Ventriculitis Status: Resolved (6) CSF leak ICD Code: G96.0 Status: Resolved (7) HTN (hypertension) ICD Code: I10 Status: Chronic (8) Bacteremia due to Enterococcus ICD Code: R78.81 Status: Resolved (9) Normocytic anemia ICD Code: D64.9 Status: Acute (10) Protein calorie malnutrition ICD Code: E46 Status: Acute Assessment and Plan 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 ST signed off. - Continue PT. CSF leak - repaired - no need for MONUMENT ERECTOR shunt at this time per NSGY - Continue Seroquel Dizziness with episodes of hypotension: Hypotension resolved. -Orthostatics were ordered and reveal no orthostasis. -Free water flushes Increased to 150mL [id number]. Hypertension: with episodes of hypotension -Metoprolol 25 mg every 12 hours with hold parameters. Normocytic anemia -H&H stable Hermila Ventriculitis - S/P intraventricular Amphotericin B administration. Last dose 06/30. - right ventriculostomy 06/03, replaced 06/12 - S/P Diflucan end date 08/07/16 per ID recommendations. - Repeat 07/07 CSF studies without growth. Enterococcus Bacteremia - Completed course of Vanc IV 06/24 Acute protein calorie malnutrition: - Patient was receiving continuous nocturnal feeding but was switched back to bolus feeds on 08/25. Nursing indicates patient gets full and then cannot eat po. I discussed patient with dietitian today. She advises decreasing number of bolus feeds so patient does not get full and can therefore eat po. She and I both instructed staff that patient's po intake needs to be consistently documented. Calorie count started and chief yeoman will reassess on Thursday. - Continue free water flushes. - Speech therapy indicates mechanical soft diet and thin liquids in addition to tube feeds (chopped meat). - Continue Ensure TID. GI prophylaxis: -Pepcid and Miralax. -Continue Reglan for prokinetic agent DVT Prophylaxis - SCDs - Heparin subQ Resp: Incentive spirometry, Accapella Discharge Planning CM following. Patient will require OT and PT at rehab. Patient is approved for SSI and needs payee. CM reached out to mortician supplies sales representative at [facility] to see if they will do this and take patient on for [facility] care. Problem Qualifiers (1) Cerebellar hemorrhage: Qualified Code: I61.4 - Nontraumatic intracerebral hemorrhage of cerebellum, unspecified laterality (2) HTN (hypertension): Qualified Code: I10 - Essential hypertension Ivory Constantino Aug 29, 2016 09:15
[2016-08-29 19:15] VITALS: BP 109/87; PULSE 77; RESP 16; TEMP 97; O2SAT 97
[2016-08-30] MEDS: FREE WATER PEG SCH ×4 (05:21→20:50)
[2016-08-30 08:00] VITALS: BP 116/84; PULSE 76; RESP 20; TEMP 97.7; O2SAT 87
[2016-08-30 08:52] VITALS: PULSE 83; O2SAT 99
[2016-08-30] MEDS: levETIRAcetam 500 MG TAB PO SCH ×2 (09:41→20:49)
[2016-08-30] MEDS: FAMOTIDINE 20 MG TAB PO SCH ×2 (09:41→20:50)
[2016-08-30] MEDS: QUEtiapine FUMARATE 25 MG TAB PO SCH ×2 (09:41→20:49)
[2016-08-30] MEDS: METOPROLOL TARTRATE 25 MG TAB PO SCH ×2 (09:42→20:50)
[2016-08-30] MEDS: HEPARIN SODIUM - SQ 10,000 UNITS/ML VIAL SQ SCH ×2 (09:42→20:50)
[2016-08-30] MEDS: LACTIC ACID (AMMONIUM LACTATE) 12% LOTION 225 GM BTL TOPICAL SCH ×2 (09:43→20:50)
--- NOTE | 2016-08-30 16:08 | HHI.PR ---
Subjective Remarks Patient evaluated this morning. Patient admits to having an appetite yet only ate 30% of his breakfast. No acute complaints. No change in clinical status. Objective Vitals Vital Signs Date Time Temp Pulse Resp B/P Pulse Ox O2 Delivery O2 Flow Rate FiO2 08/30/16 08:52 83 99 08/30/16 08:00 97.7 76 20 116/84 87 08/29/16 19:15 97.0 77 16 109/87 97 I/O 08/29/16 08/29/16 08/29/16 08/30/16 08/30/16 08/30/16 07:00 15:00 23:00 07:00 15:00 23:00 Intake Total 120 ml 450 ml 1690 ml 240 ml Output Total 400 ml 550 ml 250 ml Balance -280 ml -100 ml 1690 ml -10 ml Intake Oral 120 ml 450 ml 120 ml 240 ml Tube Feeding 720 ml Other 850 ml Output Urine Total 400 ml 550 ml 250 ml # Voids 4 # Bowel Movements 1 1 1 2 Objective Remarks GENERAL: Pleasant well-developed patient in no apparent distress. CARDIOVASCULAR: Regular rate and rhythm. RESPIRATORY: No accessory muscle use. CTAB. GASTROINTESTINAL: Normoactive bowel sounds on the right. Abdomen soft, non- tender, non-distended. NEUROLOGICAL: Awake and alert. Normal speech. Procedures Right frontal Tommy hole with placement of a ventriculostomy catheter Urinary Catheter: No Vascular Central Line Catheter: No A/P Problem List: (1) Dizziness ICD Code: R42 Status: Acute (2) Cerebellar hemorrhage ICD Code: I61.4 Status: Acute (3) AVM (arteriovenous malformation) brain ICD Code: Q28.2 Status: Acute (4) Agitation ICD Code: R45.1 Status: Acute (5) Hermila Ventriculitis Status: Resolved (6) CSF leak ICD Code: G96.0 Status: Resolved (7) HTN (hypertension) ICD Code: I10 Status: Chronic (8) Bacteremia due to Enterococcus ICD Code: R78.81 Status: Resolved (9) Normocytic anemia ICD Code: D64.9 Status: Acute (10) Protein calorie malnutrition ICD Code: E46 Status: Acute Assessment and Plan 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 ST signed off. - Continue PT. CSF leak - repaired - no need for MISSILE TECHNICIAN shunt at this time per NSGY - Continue Seroquel Dizziness with episodes of hypotension: Hypotension resolved. -Orthostatics were ordered and reveal no orthostasis. -Free water flushes Increased to 150mL [id number]. Hypertension: with episodes of hypotension -Metoprolol 25 mg every 12 hours with hold parameters. Normocytic anemia -H&H stable Hermila Ventriculitis - S/P intraventricular Amphotericin B administration. Last dose 06/30. - right ventriculostomy 06/03, replaced 06/12 - S/P Diflucan end date 08/07/16 per ID recommendations. - Repeat 07/07 CSF studies without growth. Enterococcus Bacteremia - Completed course of Vanc IV 06/24 Acute protein calorie malnutrition: - Patient was receiving continuous nocturnal feeding but was switched back to bolus feeds on 08/25. Nursing indicates patient gets full and then cannot eat po. I discussed patient with dietitian on 08/29. She advised decreasing number of bolus feeds so patient does not get full and can therefore eat po. She and I both instructed staff that patient's po intake needs to be consistently documented. Calorie count started and data entry machine operator will reassess on Thursday. - Continue free water flushes. - Speech therapy indicates mechanical soft diet and thin liquids in addition to tube feeds (chopped meat). - Continue Ensure TID. GI prophylaxis: -Pepcid and Miralax. -Continue Reglan for prokinetic agent DVT Prophylaxis - SCDs - Heparin subQ Resp: Incentive spirometry, Accapella Discharge Planning CM following. Patient will require OT and PT at rehab. Patient is approved for SSI and needs payee. CM reached out to dermatology sales representative at [facility] to see if they will do this and take patient on for care home care. Problem Qualifiers (1) Cerebellar hemorrhage: Qualified Code: I61.4 - Nontraumatic intracerebral hemorrhage of cerebellum, unspecified laterality (2) HTN (hypertension): Qualified Code: I10 - Essential hypertension Ivory Constantino Aug 30, 2016 16:08
[2016-08-30 20:47] VITALS: BP 113/75; PULSE 70; RESP 18; TEMP 98.9; O2SAT 98
[2016-08-31] MEDS: FREE WATER PEG SCH ×4 (04:00→20:44)
[2016-08-31 08:00] VITALS: BP 101/78; PULSE 72; RESP 20; TEMP 96.4; O2SAT 98
[2016-08-31] MEDS: levETIRAcetam 500 MG TAB PO SCH ×2 (08:12→20:39)
[2016-08-31] MEDS: QUEtiapine FUMARATE 25 MG TAB PO SCH ×2 (08:13→20:40)
[2016-08-31] MEDS: HEPARIN SODIUM - SQ 10,000 UNITS/ML VIAL SQ SCH ×2 (08:13→20:40)
[2016-08-31] MEDS: FAMOTIDINE 20 MG TAB PO SCH ×2 (08:13→20:39)
[2016-08-31] MEDS: LACTIC ACID (AMMONIUM LACTATE) 12% LOTION 225 GM BTL TOPICAL SCH ×2 (08:14→20:43)
[2016-08-31] MEDS: METOPROLOL TARTRATE 25 MG TAB PO SCH ×2 (08:15→20:40)
--- NOTE | 2016-08-31 09:12 | HHI.PR ---
Subjective Remarks Patient states he is hungry. No other acute complaints. Objective Vitals Vital Signs Date Time Temp Pulse Resp B/P Pulse Ox O2 Delivery O2 Flow Rate FiO2 08/31/16 08:00 96.4 72 20 101/78 98 08/30/16 20:47 98.9 70 18 113/75 98 I/O 08/30/16 08/30/16 08/30/16 08/31/16 08/31/16 08/31/16 07:00 15:00 23:00 07:00 15:00 23:00 Intake Total 1070 ml 150 ml 540 ml Output Total 950 ml 200 ml 600 ml Balance 120 ml -50 ml -60 ml Intake Oral 240 ml IV Total 0 ml Tube Feeding 480 ml 240 ml Other 350 ml 150 ml 300 ml Output Urine Total 950 ml 200 ml 600 ml # Bowel Movements 2 2 Objective Remarks GENERAL: Pleasant well-developed patient in no apparent distress. CARDIOVASCULAR: Regular rate and rhythm. RESPIRATORY: No accessory muscle use. Rhonchi present throughout and patient has phlegm in his upper airway. No wheezing or rales. GASTROINTESTINAL: Abdomen soft, non-tender, non-distended. NEUROLOGICAL: Awake and alert. Normal speech. Procedures Right frontal Tommy hole with placement of a ventriculostomy catheter Urinary Catheter: No Vascular Central Line Catheter: No A/P Problem List: (1) Dizziness ICD Code: R42 Status: Acute (2) Cerebellar hemorrhage ICD Code: I61.4 Status: Acute (3) AVM (arteriovenous malformation) brain ICD Code: Q28.2 Status: Acute (4) Agitation ICD Code: R45.1 Status: Acute (5) Hermila Ventriculitis Status: Resolved (6) CSF leak ICD Code: G96.0 Status: Resolved (7) HTN (hypertension) ICD Code: I10 Status: Chronic (8) Bacteremia due to Enterococcus ICD Code: R78.81 Status: Resolved (9) Normocytic anemia ICD Code: D64.9 Status: Acute (10) Protein calorie malnutrition ICD Code: E46 Status: Acute Assessment and Plan 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 ST signed off. - Continue PT. CSF leak - repaired - no need for AVIATION ELECTRONICS TECHNICIAN shunt at this time per NSGY - Continue Seroquel Dizziness with episodes of hypotension: Hypotension resolved. -Orthostatics were ordered and reveal no orthostasis. -Free water flushes Increased to 150mL [id number]. Hypertension: with episodes of hypotension -Metoprolol 25 mg every 12 hours with hold parameters. Normocytic anemia -H&H stable Hermila Ventriculitis - S/P intraventricular Amphotericin B administration. Last dose 06/30. - right ventriculostomy 06/03, replaced 06/12 - S/P Diflucan end date 08/07/16 per ID recommendations. - Repeat 07/07 CSF studies without growth. Enterococcus Bacteremia - Completed course of Vanc IV 06/24 Acute protein calorie malnutrition: - Patient was receiving continuous nocturnal feeding but was switched back to bolus feeds on 08/25. Nursing indicates patient gets full and then cannot eat po. I discussed patient with dietitian on 08/29. She advised decreasing number of bolus feeds so patient does not get full and can therefore eat po. She and I both instructed staff that patient's po intake needs to be consistently documented. Calorie count started and neurobiologist will reassess on Thursday. - Continue free water flushes. - Speech therapy indicates mechanical soft diet and thin liquids in addition to tube feeds (chopped meat). - Continue Ensure TID. Resp: 08/31: Patient has rhonchi today and phlegm in his upper airway. He has difficulty coughing up sputum, chronic. O2 saturation 98% on RA. Afebrile. Continue Acapella to further break up mucus. Continue incentive spirometry. GI prophylaxis: -Pepcid and Miralax. -Continue Reglan for prokinetic agent DVT Prophylaxis - SCDs - Heparin subQ Discharge Planning CM following. Patient will require OT and PT at rehab. Patient is approved for SSI and needs payee. CM reached out to circulation representative at [facility] to see if they will do this and take patient on for custodial care. Problem Qualifiers (1) Cerebellar hemorrhage: Qualified Code: I61.4 - Nontraumatic intracerebral hemorrhage of cerebellum, unspecified laterality (2) HTN (hypertension): Qualified Code: I10 - Essential hypertension Ivory Constantino Aug 31, 2016 09:12
[2016-08-31 20:39] VITALS: BP 110/76; PULSE 85; RESP 16; TEMP 98.9; O2SAT 97
[2016-09-01] MEDS: FREE WATER PEG SCH ×4 (03:43→22:00)
--- NOTE | 2016-09-01 08:51 | HHI.PR ---
Subjective Remarks No acute complaints. No change in clinical status. Objective Vitals Vital Signs Date Time Temp Pulse Resp B/P Pulse Ox O2 Delivery O2 Flow Rate FiO2 08/31/16 20:39 98.9 85 16 110/76 97 I/O 08/31/16 08/31/16 08/31/16 09/01/16 09/01/16 09/01/16 07:00 15:00 23:00 07:00 15:00 23:00 Intake Total 540 ml 340 ml 1520 ml 180 ml Output Total 600 ml 750 ml 120 ml 650 ml Balance -60 ml -410 ml 1400 ml -470 ml Intake Oral 340 ml IV Total 0 ml Tube Feeding 240 ml 720 ml 180 ml Tube Irrigant 300 ml Other 300 ml 500 ml Output Urine Total 600 ml 750 ml 120 ml 650 ml # Bowel Movements 1 1 0 Objective Remarks GENERAL: Pleasant well-developed patient in no apparent distress. CARDIOVASCULAR: Regular rate and rhythm. RESPIRATORY: No accessory muscle use. CTAB. GASTROINTESTINAL: Abdomen soft, non-tender, non-distended. NEUROLOGICAL: Awake and alert. Normal speech. Procedures Right frontal [place] hole with placement of a ventriculostomy catheter Urinary Catheter: No Vascular Central Line Catheter: No A/P Problem List: (1) Dizziness ICD Code: R42 Status: Acute (2) Cerebellar hemorrhage ICD Code: I61.4 Status: Acute (3) AVM (arteriovenous malformation) brain ICD Code: Q28.2 Status: Acute (4) Agitation ICD Code: R45.1 Status: Acute (5) Hermila Ventriculitis Status: Resolved (6) CSF leak ICD Code: G96.0 Status: Resolved (7) HTN (hypertension) ICD Code: I10 Status: Chronic (8) Bacteremia due to Enterococcus ICD Code: R78.81 Status: Resolved (9) Normocytic anemia ICD Code: D64.9 Status: Acute (10) Protein calorie malnutrition ICD Code: E46 Status: Acute Assessment and Plan 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 ST signed off. - Continue PT. CSF leak - repaired - no need for WELT ROUGHER shunt at this time per NSGY - Continue Seroquel Dizziness with episodes of hypotension: Hypotension resolved. -Orthostatics were ordered and reveal no orthostasis. -Free water flushes Increased to 150mL [id number]. Hypertension: with episodes of hypotension -Metoprolol 25 mg every 12 hours with hold parameters. Normocytic anemia -H&H stable Hermila Ventriculitis - S/P intraventricular Amphotericin B administration. Last dose 06/30. - right ventriculostomy 06/03, replaced 06/12 - S/P Diflucan end date 08/07/16 per ID recommendations. - Repeat 07/07 CSF studies without growth. Enterococcus Bacteremia - Completed course of Vanc IV 06/24 Acute protein calorie malnutrition: - Patient was receiving continuous nocturnal feeding but was switched back to bolus feeds on 08/25. Nursing indicates patient gets full and then cannot eat po. I discussed patient with dietitian on 08/29. She advised decreasing number of bolus feeds so patient does not get full and can therefore eat po. She and I both instructed staff that patient's po intake needs to be consistently documented. Calorie count started and pullman clerk will reassess on Thursday. - Continue free water flushes. - Speech therapy indicates mechanical soft diet and thin liquids in addition to tube feeds (chopped meat). - Continue Ensure TID. Resp: Continue Acapella, incentive spirometry. GI prophylaxis: -Pepcid and Miralax. -Continue Reglan for prokinetic agent DVT Prophylaxis - SCDs - Heparin subQ Discharge Planning CM following. Patient will require OT and PT at rehab. Patient is approved for SSI and needs payee. CM reached out to access representative at [facility] to see if they will do this and take patient on for group home care. Problem Qualifiers (1) Cerebellar hemorrhage: Qualified Code: I61.4 - Nontraumatic intracerebral hemorrhage of cerebellum, unspecified laterality (2) HTN (hypertension): Qualified Code: I10 - Essential hypertension Ivory Constantino Sep 01, 2016 08:50
[2016-09-01] MEDS: METOPROLOL TARTRATE 25 MG TAB PO SCH ×2 (09:00→20:56)
[2016-09-01 09:19] VITALS: BP 108/69; PULSE 92; RESP 15; TEMP 97.8; O2SAT 98
[2016-09-01] MEDS: HEPARIN SODIUM - SQ 10,000 UNITS/ML VIAL SQ SCH ×2 (09:44→21:02)
[2016-09-01] MEDS: levETIRAcetam 500 MG TAB PO SCH ×2 (09:44→20:55)
[2016-09-01] MEDS: QUEtiapine FUMARATE 25 MG TAB PO SCH ×2 (09:45→21:02)
[2016-09-01] MEDS: FAMOTIDINE 20 MG TAB PO SCH ×2 (09:45→21:02)
[2016-09-01] MEDS: LACTIC ACID (AMMONIUM LACTATE) 12% LOTION 225 GM BTL TOPICAL SCH ×2 (09:46→21:03)
[2016-09-01 20:00] VITALS: BP 108/82; PULSE 94; RESP 24; TEMP 95.6; O2SAT 99
[2016-09-02] MEDS: FREE WATER PEG SCH ×4 (04:00→22:00)
[2016-09-02 08:00] VITALS: BP 102/78; PULSE 77; RESP 18; TEMP 97.1; O2SAT 98
[2016-09-02] MEDS: METOPROLOL TARTRATE 25 MG TAB PO SCH ×3 (09:00→20:17)
[2016-09-02] MEDS: levETIRAcetam 500 MG TAB PO SCH ×2 (09:08→20:17)
[2016-09-02] MEDS: FAMOTIDINE 20 MG TAB PO SCH ×2 (09:08→20:17)
[2016-09-02] MEDS: QUEtiapine FUMARATE 25 MG TAB PO SCH ×2 (09:08→20:17)
[2016-09-02] MEDS: HEPARIN SODIUM - SQ 10,000 UNITS/ML VIAL SQ SCH ×2 (09:09→20:16)
[2016-09-02] MEDS: LACTIC ACID (AMMONIUM LACTATE) 12% LOTION 225 GM BTL TOPICAL SCH ×2 (09:09→20:18)
--- NOTE | 2016-09-02 11:40 | HHI.PR ---
Subjective Remarks Follow up on patient with h/o subarachnoid hemorrhage and residual cognitive deficits. Patient has no new complaints today. Objective Vitals Vital Signs Date Time Temp Pulse Resp B/P Pulse Ox O2 Delivery O2 Flow Rate FiO2 09/02/16 08:00 97.1 77 18 102/78 98 09/01/16 20:00 95.6 94 24 108/82 99 I/O 09/01/16 09/01/16 09/01/16 09/02/16 09/02/16 09/02/16 07:00 15:00 23:00 07:00 15:00 23:00 Intake Total 180 ml 1190 ml 120 ml Output Total 650 ml 1200 ml 300 ml Balance -470 ml -10 ml -180 ml Intake Oral 400 ml 120 ml Tube Feeding 180 ml 240 ml Other 550 ml Output Urine Total 650 ml 1200 ml 300 ml # Bowel Movements 0 0 0 Objective Remarks GENERAL: Pleasant well-developed patient in no apparent distress. CARDIOVASCULAR: Regular rate and rhythm. RESPIRATORY: No accessory muscle use. CTAB. GASTROINTESTINAL: Abdomen soft, non-tender, non-distended. NEUROLOGICAL: Awake and alert. Normal speech. Procedures Right frontal [place] hole with placement of a ventriculostomy catheter Urinary Catheter: Yes, condom catheter Vascular Central Line Catheter: No Procedures Right frontal [place] hole with placement of a ventriculostomy catheter Medications and IVs Current Medications Medications (Trade) Dose Ordered Sig/Paula Route Start Time Stop Time Status Last Admin (Fioricet 325-50-40) 1 tab Q6H PRN PO 05/29/16 15:00 08/28/16 20:44 (Heparin Inj) 5,000 units Q12HR SQ 05/29/16 21:00 09/02/16 09:09 (Keppra) 500 mg Q12HR PO 05/29/16 21:00 09/02/16 09:08 (Tylenol) 650 mg Q6H PRN PO 06/03/16 09:45 08/13/16 09:20 (Colace) 100 mg BID PO 06/03/16 21:00 Hold 07/04/16 08:16 Miscellaneous Information 1 Q361D XX 06/03/16 09:45 (SEROquel) 25 mg BID PO 06/06/16 09:00 09/02/16 09:08 (Imodium Liq) 2 mg UNSCH PRN TUBE 06/06/16 16:15 08/25/16 21:36 (Lac-Hydrin 12% Lotion) 1 applic BID TOPICAL 07/24/16 21:00 09/02/16 09:09 (Free Water) 150 ml Q6H PEG 07/31/16 22:00 09/02/16 09:09 (Pepcid) 20 mg BID PO 08/10/16 21:00 09/02/16 09:08 (Zofran Odt) 4 mg Q6H PRN PO 08/19/16 15:30 (Lopressor) 12.5 mg Q12HR PO 08/24/16 21:00 09/01/16 20:56 (Miralax) 17 gm Q12H PRN PO 08/25/16 20:00 A/P Problem List: (1) Dizziness ICD Code: R42 Status: Acute (2) Cerebellar hemorrhage ICD Code: I61.4 Status: Acute (3) AVM (arteriovenous malformation) brain ICD Code: Q28.2 Status: Acute (4) Agitation ICD Code: R45.1 Status: Acute (5) Hermila Ventriculitis Status: Resolved (6) CSF leak ICD Code: G96.0 Status: Resolved (7) HTN (hypertension) ICD Code: I10 Status: Chronic (8) Bacteremia due to Enterococcus ICD Code: R78.81 Status: Resolved (9) Normocytic anemia ICD Code: D64.9 Status: Acute (10) Protein calorie malnutrition ICD Code: E46 Status: Acute Assessment and Plan 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 ST signed off. CSF leak - repaired - no need for BODY SHOP FLOORPERSON shunt at this time per NSGY - Continue Seroquel Dizziness with episodes of hypotension: Hypotension resolved. -Orthostatics were ordered and reveal no orthostasis. -Free water flushes Increased to 150mL [id number]. Hypertension: with episodes of hypotension -Metoprolol 25 mg every 12 hours with hold parameters. Normocytic anemia -H&H stable from last CBC 08/15/16 Hermila Ventriculitis - S/P intraventricular Amphotericin B administration. Last dose 06/30. - right ventriculostomy 06/03, replaced 06/12 - S/P Diflucan end date 08/07/16 per ID recommendations. - Repeat 07/07 CSF studies without growth. Enterococcus Bacteremia - Completed course of Vanc IV 06/24 Acute protein calorie malnutrition: - reassessed by police detention attendant on 09/01/16 revealing inadequate po intake and recommended increased bolus feedings to QID. - Continue free water flushes. - Speech therapy indicates mechanical soft diet and thin liquids in addition to tube feeds (chopped meat). - Continue Ensure TID. - Beneprotein BID. Resp: -Continue Acapella -incentive spirometry. GI prophylaxis: -Pepcid and Miralax. -Continue Reglan for prokinetic agent DVT Prophylaxis - SCDs - Heparin subQ Discharge Planning CM following. Patient will require OT and PT at rehab. Patient is approved for SSI and needs payee. CM reached out to sales representative business courses at [facility] to see if they will do this and take patient on for [facility] care. Problem Qualifiers (1) Cerebellar hemorrhage: Qualified Code: I61.4 - Nontraumatic intracerebral hemorrhage of cerebellum, unspecified laterality (2) HTN (hypertension): Qualified Code: I10 - Essential hypertension Mona Coleman Sep 02, 2016 11:40 Mona Coleman Sep 02, 2016 11:40
[2016-09-02] MEDS: BENEPROTEIN POWDER 1 PACK G-TUBE SCH ×2 (13:00→21:00)
[2016-09-02] MEDS: ACETAMINOPHEN 325 MG TAB PO PRN (18:25)
[2016-09-02 20:00] VITALS: BP 106/74; PULSE 79; RESP 21; TEMP 97; TEMP 97.1; O2SAT 95
[2016-09-02] MEDS: ACETAMIN 325 MG/BUTALBITAL 50 MG/CAFFEINE 40 MG TAB PO PRN (23:34)
[2016-09-03] MEDS: FREE WATER PEG SCH ×4 (04:00→21:58)
[2016-09-03 07:57] VITALS: BP 100/70; PULSE 82; RESP 16; TEMP 97.2; O2SAT 98
[2016-09-03] MEDS: FAMOTIDINE 20 MG TAB PO SCH ×2 (08:11→21:54)
[2016-09-03] MEDS: levETIRAcetam 500 MG TAB PO SCH ×2 (08:11→21:54)
[2016-09-03] MEDS: METOPROLOL TARTRATE 25 MG TAB PO SCH (08:11)
[2016-09-03] MEDS: BENEPROTEIN POWDER 1 PACK G-TUBE SCH ×2 (08:11→21:57)
[2016-09-03] MEDS: QUEtiapine FUMARATE 25 MG TAB PO SCH ×2 (08:11→21:54)
[2016-09-03] MEDS: HEPARIN SODIUM - SQ 10,000 UNITS/ML VIAL SQ SCH ×2 (08:11→21:54)
[2016-09-03] MEDS: LACTIC ACID (AMMONIUM LACTATE) 12% LOTION 225 GM BTL TOPICAL SCH ×2 (08:12→21:58)
[2016-09-03] MEDS ORDERED: MAGNESIUM HYDROXIDE SUSP 30 ML CUP PO ONE (10:30)
[2016-09-03] MEDS ORDERED: DOCUSATE SODIUM 50 MG/SENNA 8.6 MG TAB PO ONE (10:30)
--- NOTE | 2016-09-03 10:38 | HHI.PR ---
Subjective Remarks Follow-up on patient with history of subarachnoid hemorrhage and residual cognitive deficits. Patient's only complaint this morning is that he has yet to receive his breakfast tray he denies any complaints of pain or any other acute medical issues. Patient's clinical status is unchanged. Objective Vitals Vital Signs Date Time Temp Pulse Resp B/P Pulse Ox O2 Delivery O2 Flow Rate FiO2 09/03/16 07:57 97.2 82 16 100/70 98 09/03/16 00:34 16 09/02/16 20:00 97.1 79 21 106/74 95 09/02/16 19:25 16 I/O 09/02/16 09/02/16 09/02/16 09/03/16 09/03/16 09/03/16 07:00 15:00 23:00 07:00 15:00 23:00 Intake Total 120 ml 540 ml 390 ml 600 ml Output Total 300 ml 650 ml 1050 ml Balance -180 ml -110 ml 390 ml -450 ml Intake Oral 120 ml 540 ml 600 ml Tube Feeding 240 ml Tube Irrigant 150 ml Output Urine Total 300 ml 650 ml 1050 ml # Voids 1 # Bowel Movements 0 0 0 Objective Remarks GENERAL: Pleasant well-developed patient in no apparent distress. Lying in hospital bed. CARDIOVASCULAR: Regular rate and rhythm. RESPIRATORY: No accessory muscle use. CTAB. GASTROINTESTINAL: Abdomen soft, non-tender, non-distended. NEUROLOGICAL: Awake and alert. Normal speech. Procedures Right frontal [place] hole with placement of a ventriculostomy catheter Urinary Catheter: Yes, condom catheter Vascular Central Line Catheter: No Procedures Right frontal [place] hole with placement of a ventriculostomy catheter Medications and IVs Current Medications Medications (Trade) Dose Ordered Sig/Paula Route Start Time Stop Time Status Last Admin (Fioricet 325-50-40) 1 tab Q6H PRN PO 05/29/16 15:00 09/02/16 23:34 (Heparin Inj) 5,000 units Q12HR SQ 05/29/16 21:00 09/03/16 08:11 (Keppra) 500 mg Q12HR PO 05/29/16 21:00 09/03/16 08:11 (Tylenol) 650 mg Q6H PRN PO 06/03/16 09:45 09/02/16 18:25 Miscellaneous Information 1 Q361D XX 06/03/16 09:45 (SEROquel) 25 mg BID PO 06/06/16 09:00 09/03/16 08:11 (Imodium Liq) 2 mg UNSCH PRN TUBE 06/06/16 16:15 08/25/16 21:36 (Lac-Hydrin 12% Lotion) 1 applic BID TOPICAL 07/24/16 21:00 09/03/16 08:12 (Free Water) 150 ml Q6H PEG 07/31/16 22:00 09/03/16 08:17 (Pepcid) 20 mg BID PO 08/10/16 21:00 09/03/16 08:11 (Zofran Odt) 4 mg Q6H PRN PO 08/19/16 15:30 (Lopressor) 12.5 mg Q12HR PO 08/24/16 21:00 09/02/16 20:17 (Miralax) 17 gm Q12H PRN PO 08/25/16 20:00 (Beneprotein Powder) 1 pack BID G-TUBE 09/02/16 13:00 09/03/16 08:11 A/P Problem List: (1) Dizziness ICD Code: R42 Status: Acute (2) Cerebellar hemorrhage ICD Code: I61.4 Status: Acute (3) AVM (arteriovenous malformation) brain ICD Code: Q28.2 Status: Acute (4) Agitation ICD Code: R45.1 Status: Acute (5) Hermila Ventriculitis Status: Resolved (6) CSF leak ICD Code: G96.0 Status: Resolved (7) HTN (hypertension) ICD Code: I10 Status: Chronic (8) Bacteremia due to Enterococcus ICD Code: R78.81 Status: Resolved (9) Normocytic anemia ICD Code: D64.9 Status: Acute (10) Protein calorie malnutrition ICD Code: E46 Status: Acute Assessment and Plan S/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, status post AVM embolization at [facility] followed by suboccipital craniotomy for hematoma evacuation and AVM resection - continue with Keppra 500 mg twice a day for seizure prophylaxis, obtain Keppra level - Neurosurgery signed off - Continue participation with PT/OT - patient refused OOB maneuvers today - Tylenol/Fioricet for HAs prn, no complaint of headaches today - Cognitive evaluation was performed by speech therapy on 08/11; states the patient has made limited to no progress toward stated goals since initial eval on 06/04/16; patient is at new baseline and cognition varies day to day. ST signed off. CSF leak - repaired - no need for VEGETABLE PACKER shunt at this time per NSGY - Continue Seroquel Dizziness with episodes of hypotension: -BP systolic running in low 100s, HR 80-90s -Patient has only been receiving metoprolol 12.5 mg once daily, will discontinue and monitor BP measurements. -Orthostatics were ordered and reveal no orthostasis. -Free water flushes increased. Hypertension: with episodes of hypotension -as above. -hold Metoprolol for now and monitor BP. Normocytic anemia -H&H stable from last CBC 08/15/16 Hermila Ventriculitis - S/P intraventricular Amphotericin B administration. Last dose 06/30. - right ventriculostomy 06/03, replaced 06/12 - S/P Diflucan end date 08/07/16 per ID recommendations. - Repeat 07/07 CSF studies without growth. Enterococcus Bacteremia - Completed course of Vanc IV 06/24 Acute protein calorie malnutrition: - reassessed by survey technologist on 09/01/16 revealing inadequate po intake and recommended increased bolus feedings to QID. - Continue free water flushes. - Speech therapy indicates mechanical soft diet and thin liquids in addition to tube feeds (chopped meat). - Continue Ensure TID. - Beneprotein BID. Resp: -Continue Acapella -incentive spirometry at bedside, encourage use. Constipation: -No BM x 3 days -dose MOM now -Pericolace once now -monitor for BM GI prophylaxis: -Pepcid and Miralax. DVT Prophylaxis - SCDs - Heparin subQ Discharge Planning CM following. Patient will require OT and PT at rehab. Patient is approved for SSI and needs payee. [facility] and rehab here to assess patient for possible placement at their facility. Problem Qualifiers (1) Cerebellar hemorrhage: Qualified Code: I61.4 - Nontraumatic intracerebral hemorrhage of cerebellum, unspecified laterality (2) HTN (hypertension): Qualified Code: I10 - Essential hypertension Mona Coleman Sep 03, 2016 10:38
[2016-09-03 20:00] VITALS: BP 97/72; PULSE 78; RESP 18; TEMP 96.5; O2SAT 96
[2016-09-03] MEDS: ACETAMIN 325 MG/BUTALBITAL 50 MG/CAFFEINE 40 MG TAB PO PRN (21:54)
[2016-09-04 08:00] VITALS: BP 118/8; PULSE 93; RESP 18; TEMP 97; O2SAT 95
[2016-09-04] MEDS: levETIRAcetam 500 MG TAB PO SCH ×2 (08:35→20:20)
[2016-09-04] MEDS: QUEtiapine FUMARATE 25 MG TAB PO SCH ×2 (08:35→20:20)
[2016-09-04] MEDS: FAMOTIDINE 20 MG TAB PO SCH ×2 (08:35→20:20)
[2016-09-04] MEDS: HEPARIN SODIUM - SQ 10,000 UNITS/ML VIAL SQ SCH ×2 (08:36→20:20)
[2016-09-04] MEDS: FREE WATER PEG SCH ×3 (08:36→22:00)
[2016-09-04] MEDS: LACTIC ACID (AMMONIUM LACTATE) 12% LOTION 225 GM BTL TOPICAL SCH ×2 (08:36→20:20)
[2016-09-04] MEDS: BENEPROTEIN POWDER 1 PACK G-TUBE SCH ×2 (08:36→20:20)
[2016-09-04] MEDS ORDERED: BISACODYL 10 MG SUPP RECTAL PRN (09:15)
[2016-09-04] MEDS ORDERED: POLYETHYLENE GLYCOL 17 GM PKG PO ONE (09:15)
--- NOTE | 2016-09-04 09:18 | HHI.PR ---
Subjective Remarks Follow-up on patient with history of subarachnoid hemorrhage and residual cognitive deficits. Patient seen and examined. Denies any acute complaints today. Requesting a Mountain Dew. No change in patient's current clinical status. Objective Vitals Vital Signs Date Time Temp Pulse Resp B/P Pulse Ox O2 Delivery O2 Flow Rate FiO2 09/03/16 20:00 96.5 78 18 97/72 96 09/03/16 20:00 96.5 78 18 97/72 96 I/O 09/03/16 09/03/16 09/03/16 09/04/16 09/04/16 09/04/16 07:00 15:00 23:00 07:00 15:00 23:00 Intake Total 600 ml 630 ml 590 ml 300 ml Output Total 1050 ml 450 ml 350 ml Balance -450 ml 180 ml 240 ml 300 ml Intake Oral 600 ml 150 ml 100 ml IV Total 0 ml Tube Feeding 480 ml 240 ml Tube Irrigant 200 ml 200 ml Other 150 ml Output Urine Total 1050 ml 450 ml 350 ml # Voids 1 # Bowel Movements 0 Objective Remarks GENERAL: Pleasant well-developed patient in no apparent distress. Lying in hospital bed. Awake and alert. CARDIOVASCULAR: Regular rate and rhythm. RESPIRATORY: No accessory muscle use. CTAB. GASTROINTESTINAL: Abdomen soft, non-tender, non-distended. NEUROLOGICAL: Awake and alert. Normal speech. Procedures Right frontal [place] hole with placement of a ventriculostomy catheter Urinary Catheter: Yes, condom catheter Vascular Central Line Catheter: No Procedures Right frontal [place] hole with placement of a ventriculostomy catheter A/P Problem List: (1) Dizziness ICD Code: R42 Status: Acute (2) Cerebellar hemorrhage ICD Code: I61.4 Status: Acute (3) AVM (arteriovenous malformation) brain ICD Code: Q28.2 Status: Acute (4) Agitation ICD Code: R45.1 Status: Acute (5) Hermila Ventriculitis Status: Resolved (6) CSF leak ICD Code: G96.0 Status: Resolved (7) HTN (hypertension) ICD Code: I10 Status: Chronic (8) Bacteremia due to Enterococcus ICD Code: R78.81 Status: Resolved (9) Normocytic anemia ICD Code: D64.9 Status: Acute (10) Protein calorie malnutrition ICD Code: E46 Status: Acute Assessment and Plan 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 Refused participation with OT altogether due to complaints of pain in upper extremities. - Tylenol/Fioricet for HAs prn, no complaint of headaches today - Cognitive evaluation was performed by speech therapy on 08/11; states the patient has made limited to no progress toward stated goals since initial eval on 06/04/16; patient is at new baseline and cognition varies day to day. ST signed off. CSF leak - repaired - no need for BIOMASS TECHNICIAN shunt at this time per NSGY - Continue Seroquel Dizziness with episodes of hypotension: -BP systolic running in low 100s, HR high 70s -Metoprolol placed on hold yesterday. Will continue to monitor BP measurement. -Orthostatics were ordered and reveal no orthostasis. -Free water flushes increased. Hypertension: with episodes of hypotension -as above. -Continue to hold Metoprolol for now and monitor BP. Normocytic anemia -H&H stable from last CBC 08/15/16 Hermila Ventriculitis - S/P intraventricular Amphotericin B administration. Last dose 06/30. - right ventriculostomy 06/03, replaced 06/12 - S/P Diflucan end date 08/07/16 per ID recommendations. - Repeat 1/2 CSF studies without growth. Enterococcus Bacteremia - Completed course of Vanc IV 06/24 Acute protein calorie malnutrition: - reassessed by mold changer on 09/01/16 revealing inadequate po intake and recommended increased bolus feedings to QID. - Continue free water flushes. - Speech therapy indicates mechanical soft diet and thin liquids in addition to tube feeds (chopped meat). - Continue Ensure TID. - Beneprotein BID. Resp: -Continue Acapella -incentive spirometry at bedside, encourage use. Constipation: -No BM x 3 days despite MOM and Maria M-colace given -MiraLAX 1 dose now, Dulcolax suppository if no BM 24 hours -monitor for BM GI prophylaxis: -Pepcid and Miralax. DVT Prophylaxis - SCDs - Heparin subQ Discharge Planning CM following. Patient will require OT and PT at rehab. Patient is approved for SSI and needs payee. [facility] and rehab here to assess patient for possible placement at their facility - we'll await results of their evaluation. Problem Qualifiers (1) Cerebellar hemorrhage: Qualified Code: I61.4 - Nontraumatic intracerebral hemorrhage of cerebellum, unspecified laterality (2) HTN (hypertension): Qualified Code: I10 - Essential hypertension Mona Coleman Sep 04, 2016 09:18
[2016-09-04 20:00] VITALS: BP 114/83; PULSE 87; RESP 18; TEMP 97.2; O2SAT 97
[2016-09-04] MEDS: ACETAMINOPHEN 325 MG TAB PO PRN (20:51)
[2016-09-05] MEDS: FREE WATER PEG SCH ×4 (04:00→21:44)
[2016-09-05 08:00] VITALS: BP 117/77; PULSE 78; RESP 18; TEMP 97.2; O2SAT 99
[2016-09-05] MEDS: levETIRAcetam 500 MG TAB PO SCH ×2 (08:49→20:30)
[2016-09-05] MEDS: BENEPROTEIN POWDER 1 PACK G-TUBE SCH ×2 (08:49→20:34)
[2016-09-05] MEDS: HEPARIN SODIUM - SQ 10,000 UNITS/ML VIAL SQ SCH ×2 (08:49→20:30)
[2016-09-05] MEDS: QUEtiapine FUMARATE 25 MG TAB PO SCH ×2 (08:49→20:31)
[2016-09-05] MEDS: FAMOTIDINE 20 MG TAB PO SCH ×2 (08:49→20:31)
[2016-09-05] MEDS: LACTIC ACID (AMMONIUM LACTATE) 12% LOTION 225 GM BTL TOPICAL SCH ×2 (08:50→20:34)
--- NOTE | 2016-09-05 11:00 | HHI.PR ---
Subjective Remarks Patient seen and examined today. Patient states that he has no new complaints. Nursing staff indicates that he still has a very strong odor in his urine. Patient is asymptomatic for any signs of infection. I did discuss with them that he is on protein supplement which could change the odor and color of his urine. Will continue monitor and evaluate, assess for infection if patient is symptomatic. Objective Vitals Vital Signs Date Time Temp Pulse Resp B/P Pulse Ox O2 Delivery O2 Flow Rate FiO2 09/05/16 08:00 97.2 78 18 117/77 99 09/04/16 22:14 20 09/04/16 20:00 97.2 87 18 114/83 97 I/O 09/04/16 09/04/16 09/04/16 09/05/16 09/05/16 09/05/16 07:00 15:00 23:00 07:00 15:00 23:00 Intake Total 300 ml 490 ml Output Total 700 ml Balance 300 ml 490 ml -700 ml Intake Oral 100 ml Tube Feeding 240 ml Tube Irrigant 200 ml 100 ml Other 150 ml Output Urine Total 700 ml # Bowel Movements 1 Objective Remarks GENERAL: Well-developed, well-nourished, in no acute distress. alert and awake. Orientated to person only HEENT: Head is normocephalic without any lesions or masses noted. Facial features are symmetric. Eyes: Extraocular muscles are intact. Conjunctivae were clear. NECK: Supple without any masses. Trachea midline no deviation. No JVD, CARDIAC: Regular rhythm, regular rate. S1/S2 are heard. No murmurs gallops or rubs. LUNGS: Clear to auscultation bilaterally. No wheeze, rhonchi or rales. No use of accessory muscles on inspiration or expiration. ABDOMEN: Soft, nontender. Nondistended. Bowel sounds heard in all 4 quadrants. No organomegaly or masses. Negative rebound, negative guarding. PEG tube site clear without signs of infection EXTREMITIES: No edema, pulses are equal bilaterally. No cyanosis or clubbing NEUROLOGY: Mood and affect appear appropriate. Cranial nerves II through XII grossly intact. Procedures Right frontal [place] hole with placement of a ventriculostomy catheter Urinary Catheter: No Vascular Central Line Catheter: No A/P Assessment and Plan 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, status post AVM embolization at [facility] followed by suboccipital craniotomy for hematoma evacuation and AVM resection - Keppra 500 mg twice a day for seizure prophylaxis - CSF leak - repaired, no need for FONDANT COOKER shunt at this time per neurosurgery - neurosurgery signed off - Cognitive evaluation was performed by speech therapy on 08/11; states the patient has made limited to no progress toward stated goals since initial eval on 06/04/16; patient is at new baseline and cognition varies day to day. ST signed off. - Tylenol/Fioricet for HAs - Continue Seroquel Dizziness with episodes hypotension: Hypotension resolved. -Orthostatics were ordered and reveal no orthostasis. -Increased to 150mL free water flushes [id number]. Hypertension: with episodes of hypotension -Blood pressure medication has been on hold since 09/22/16. Patient blood pressure has remained stable. We'll discontinue medications at this time. Normocytic anemia -H&H stable Acute protein calorie malnutrition: Pre-albumin 18 - Dietitian following. - Bolus feedings, Rec Jevity 1.5 w/ 1-can(240ml) @ 0600, 1000, 1400, 1800 and 2200 - Continue free water flushes. - Speech therapy indicates mechanical soft diet and thin liquids in addition to tube feeds (chopped meat). - Continue Ensure TID. Benaprotein twice daily Physical deconditioning - Continue PT/OT Hermila Ventriculitis, resolved - S/P intraventricular Amphotericin B administration. Last dose 06/30. - right ventriculostomy 06/03, replaced 06/12 - S/P Diflucan end date 08/07/16 per ID recommendations. - Repeat /2 CSF studies without growth. Enterococcus Bacteremia, resolved - Completed course of Vanc IV 06/24 GI prophylaxis: -Pepcid and Miralax for -Continue Reglan for prokinetic agent Continue bowel regimen DVT Prophylaxis - Heparin subQ Discharge Planning Discharge planning per case management. Physical therapy and occupational therapy still recommending rehabilitation. Patient has been approved for SSI and needs payee. [facility] and rehabilitation has evaluated the patient on 09/03/16. Awaiting acceptance Stanley Ruiz Sep 05, 2016 11:00
[2016-09-05 21:25] VITALS: BP 95/75; PULSE 102; RESP 12; TEMP 98.6; O2SAT 97
[2016-09-06] MEDS: FREE WATER PEG SCH ×4 (04:00→22:00)
[2016-09-06 07:05] LABS: AUTOMATED NEUTROPHIL # 3.3 TH/MM3 (1.8-7.7); BASOPHIL % 0.8 % (0.0-2.0); HEMATOCRIT 36.8 % (39.0-51.0); HEMO FLAGS DIFF FINAL; LYMPH % 22.7 % (9.0-44.0); MEAN CORPUSCULAR HEMOGLOBIN 29.9 PG (27.0-34.0); MEAN CORPUSCULAR HGB CONC 33.6 % (32.0-36.0); MONO % 5.7 % (0.0-8.0); NEUT % 69.8 % (16.0-70.0); PLATELET COUNT 260 TH/MM3 (150-450); RED BLOOD COUNT 4.14 MIL/MM3 (4.50-5.90); WHITE BLOOD COUNT 4.6 TH/MM3 (4.0-11.0)
[2016-09-06 07:20] LABS: POTASSIUM 4.4 MEQ/L (3.5-5.1)
[2016-09-06 07:26] LABS: BICARBONATE 31.7 MEQ/L (21.0-32.0); MAGNESIUM 2.1 MG/DL (1.5-2.5)
[2016-09-06 08:00] VITALS: BP 99/77; PULSE 98; RESP 16; TEMP 98.6; O2SAT 99
[2016-09-06] MEDS: HEPARIN SODIUM - SQ 10,000 UNITS/ML VIAL SQ SCH ×2 (08:41→20:47)
[2016-09-06] MEDS: FAMOTIDINE 20 MG TAB PO SCH ×2 (08:41→21:17)
[2016-09-06] MEDS: levETIRAcetam 500 MG TAB PO SCH ×2 (08:41→20:46)
[2016-09-06] MEDS: QUEtiapine FUMARATE 25 MG TAB PO SCH ×2 (08:41→20:46)
[2016-09-06] MEDS: LACTIC ACID (AMMONIUM LACTATE) 12% LOTION 225 GM BTL TOPICAL SCH ×2 (09:00→20:47)
[2016-09-06] MEDS: BENEPROTEIN POWDER 1 PACK G-TUBE SCH ×2 (09:00→21:00)
--- NOTE | 2016-09-06 14:13 | HHI.PR ---
Subjective Remarks Patient seen and examined today. Patient denies any new complaints. Awaiting case briefer discharge planning. Currently waiting for someone be able to sign him in to [facility] and rehabilitation Objective Vitals Vital Signs Date Time Temp Pulse Resp B/P Pulse Ox O2 Delivery O2 Flow Rate FiO2 09/06/16 08:00 98.6 98 16 99/77 99 09/05/16 21:25 98.6 102 12 95/75 97 I/O 09/05/16 09/05/16 09/05/16 09/06/16 09/06/16 09/06/16 07:00 15:00 23:00 07:00 15:00 23:00 Intake Total 240 ml 1030 ml 390 ml Output Total 700 ml 800 ml 1050 ml 350 ml Balance -700 ml -560 ml 1030 ml -660 ml -350 ml Intake Oral 240 ml Tube Feeding 480 ml 240 ml Tube Irrigant 400 ml Other 150 ml 150 ml Output Urine Total 700 ml 800 ml 1050 ml 350 ml # Bowel Movements 1 1 Result Diagram: 09/06/16 0650 09/06/16 0650 Objective Remarks GENERAL: Well-developed, well-nourished, in no acute distress. alert and awake. Orientated to person only HEENT: Head is normocephalic without any lesions or masses noted. Facial features are symmetric. Eyes: Extraocular muscles are intact. Conjunctivae were clear. NECK: Supple without any masses. Trachea midline no deviation. No JVD, CARDIAC: Regular rhythm, regular rate. S1/S2 are heard. No murmurs gallops or rubs. LUNGS: Clear to auscultation bilaterally. No wheeze, rhonchi or rales. No use of accessory muscles on inspiration or expiration. ABDOMEN: Soft, nontender. Nondistended. Bowel sounds heard in all 4 quadrants. No organomegaly or masses. Negative rebound, negative guarding. PEG tube site clear without signs of infection EXTREMITIES: No edema, pulses are equal bilaterally. No cyanosis or clubbing NEUROLOGY: Mood and affect appear appropriate. Cranial nerves II through XII grossly intact. 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 ST signed off. - Tylenol/Fioricet for HAs - Continue Seroquel Dizziness with episodes hypotension: Hypotension resolved. -Orthostatics were ordered and reveal no orthostasis. -Increased to 150mL free water flushes [id number]. Hypertension: with episodes of hypotension -Blood pressure medication has been on hold since 09/22/16. Patient blood pressure has remained stable. We'll discontinue medications at this time. Normocytic anemia -H&H stable Acute protein calorie malnutrition: Pre-albumin 18 - Dietitian following. - Bolus feedings, Rec Jevity 1.5 w/ 1-can(240ml) @ 0600, 1000, 1400, 1800 and 2200 - Continue free water flushes. - Speech therapy indicates mechanical soft diet and thin liquids in addition to tube feeds (chopped meat). - Continue Ensure TID. Benaprotein twice daily Physical deconditioning - Continue PT/OT Hermila Ventriculitis, resolved - S/P intraventricular Amphotericin B administration. Last dose 06/30. - right ventriculostomy 06/03, replaced 06/12 - S/P Diflucan end date 08/07/16 per ID recommendations. - Repeat /2 CSF studies without growth. Enterococcus Bacteremia, resolved - Completed course of Vanc IV 06/24 GI prophylaxis: -Pepcid and Miralax for -Continue Reglan for prokinetic agent Continue bowel regimen DVT Prophylaxis - Heparin subQ Discharge Planning Discharge planning per case management. Physical therapy and occupational therapy still recommending rehabilitation. Patient has been approved for SSI and needs payee. [facility] has evaluated the patient on 09/03/16. Awaiting case management to arrange someone to be able to sign him in to [facility] Stanley Ruiz Sep 06, 2016 14:13
[2016-09-06 20:00] VITALS: BP 116/78; PULSE 89; RESP 21; TEMP 96.2; O2SAT 98
[2016-09-07] MEDS: FREE WATER PEG SCH ×4 (04:00→22:00)
[2016-09-07] MEDS: ACETAMIN 325 MG/BUTALBITAL 50 MG/CAFFEINE 40 MG TAB PO PRN (05:53)
[2016-09-07 08:00] VITALS: BP 97/70; PULSE 81; RESP 18; TEMP 97.1; O2SAT 97
[2016-09-07] MEDS: QUEtiapine FUMARATE 25 MG TAB PO SCH ×2 (09:13→20:19)
[2016-09-07] MEDS: FAMOTIDINE 20 MG TAB PO SCH ×2 (09:13→20:19)
[2016-09-07] MEDS: levETIRAcetam 500 MG TAB PO SCH ×2 (09:13→20:19)
[2016-09-07] MEDS: BENEPROTEIN POWDER 1 PACK G-TUBE SCH ×2 (09:14→20:24)
[2016-09-07] MEDS: HEPARIN SODIUM - SQ 10,000 UNITS/ML VIAL SQ SCH ×2 (09:17→20:18)
[2016-09-07] MEDS: LACTIC ACID (AMMONIUM LACTATE) 12% LOTION 225 GM BTL TOPICAL SCH ×2 (09:20→20:19)
--- NOTE | 2016-09-07 11:03 | HHI.PR ---
Subjective Remarks Patient seen and examined today. Patient denies any new complaints. Change clinical status. Objective Vitals Vital Signs Date Time Temp Pulse Resp B/P Pulse Ox O2 Delivery O2 Flow Rate FiO2 09/07/16 08:00 97.1 81 18 97/70 97 09/07/16 06:53 16 09/06/16 20:00 96.2 89 21 116/78 98 I/O 09/06/16 09/06/16 09/06/16 09/07/16 09/07/16 09/07/16 07:00 15:00 23:00 07:00 15:00 23:00 Intake Total 390 ml 460 ml 240 ml Output Total 1050 ml 350 ml 550 ml 50 ml Balance -660 ml -350 ml -90 ml 190 ml Intake Oral 240 ml 240 ml Oral Supplement 220 ml Tube Feeding 240 ml Other 150 ml Output Urine Total 1050 ml 350 ml 550 ml 50 ml Stool Total 0 ml # Bowel Movements 1 Result Diagram: 09/06/16 0650 09/06/16 0650 Objective Remarks GENERAL: Well-developed, well-nourished, in no acute distress. alert and awake. Orientated to person only HEENT: Head is normocephalic without any lesions or masses noted. Facial features are symmetric. Eyes: Extraocular muscles are intact. Conjunctivae were clear. NECK: Supple without any masses. Trachea midline no deviation. No JVD, CARDIAC: Regular rhythm, regular rate. S1/S2 are heard. No murmurs gallops or rubs. LUNGS: Clear to auscultation bilaterally. No wheeze, rhonchi or rales. No use of accessory muscles on inspiration or expiration. ABDOMEN: Soft, nontender. Nondistended. Bowel sounds heard in all 4 quadrants. No organomegaly or masses. Negative rebound, negative guarding. PEG tube site clear without signs of infection EXTREMITIES: No edema, pulses are equal bilaterally. No cyanosis or clubbing NEUROLOGY: Mood and affect appear appropriate. Cranial nerves II through XII grossly intact. 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 ST signed off. - Tylenol/Fioricet for HAs - Continue Seroquel Dizziness with episodes hypotension: Hypotension resolved. -Orthostatics were ordered and reveal no orthostasis. -Increased to 150mL free water flushes [id number]. Hypertension: with episodes of hypotension -Blood pressure medication has been on hold since 09/22/16. Patient blood pressure has remained stable. We'll discontinue medications at this time. Normocytic anemia -H&H stable Acute protein calorie malnutrition: Pre-albumin 18 - Dietitian following. - Bolus feedings, Rec Jevity 1.5 w/ 1-can(240ml) @ 0600, 1000, 1400, 1800 and 2200 - Continue free water flushes. - Speech therapy indicates mechanical soft diet and thin liquids in addition to tube feeds (chopped meat). - Continue Ensure TID. Benaprotein twice daily Physical deconditioning - Continue PT/OT Hermila Ventriculitis, resolved - S/P intraventricular Amphotericin B administration. Last dose 06/30. - right ventriculostomy 06/03, replaced 06/12 - S/P Diflucan end date 08/07/16 per ID recommendations. - Repeat 1/2 CSF studies without growth. Enterococcus Bacteremia, resolved - Completed course of Vanc IV 06/24 GI prophylaxis: -Pepcid and Miralax for -Continue Reglan for prokinetic agent Continue bowel regimen DVT Prophylaxis - Heparin subQ No change in present treatment plan Discharge Planning Discharge planning per case management. Physical therapy and occupational therapy still recommending rehabilitation. Patient has been approved for SSI and needs payee. [facility] has evaluated the patient on 09/03/16. Awaiting case management to arrange someone to be able to sign him in to [facility] and [facility] Stanley Ruiz Sep 07, 2016 11:03
[2016-09-07 20:00] VITALS: BP 95/70; PULSE 108; RESP 20; TEMP 99.5; O2SAT 95
[2016-09-08] MEDS: FREE WATER PEG SCH ×4 (04:00→21:14)
[2016-09-08 08:00] VITALS: BP 107/76; PULSE 86; RESP 20; TEMP 97.5; O2SAT 94
[2016-09-08] MEDS: QUEtiapine FUMARATE 25 MG TAB PO SCH ×2 (08:47→21:13)
[2016-09-08] MEDS: HEPARIN SODIUM - SQ 10,000 UNITS/ML VIAL SQ SCH ×2 (08:47→21:14)
[2016-09-08] MEDS: levETIRAcetam 500 MG TAB PO SCH ×2 (08:47→21:13)
[2016-09-08] MEDS: FAMOTIDINE 20 MG TAB PO SCH ×2 (08:47→21:13)
[2016-09-08] MEDS: LACTIC ACID (AMMONIUM LACTATE) 12% LOTION 225 GM BTL TOPICAL SCH ×2 (08:48→21:14)
[2016-09-08] MEDS: BENEPROTEIN POWDER 1 PACK G-TUBE SCH ×2 (08:48→21:00)
--- NOTE | 2016-09-08 09:01 | HHI.PR ---
Subjective Remarks Follow up on subarachnoid hemorrhage with persistent cognitive deficits. Patient seen and examined. Patient denies any new complaints. He reports bowel movement yesterday. No change in patient's current clinical status. Objective Vitals Vital Signs Date Time Temp Pulse Resp B/P Pulse Ox O2 Delivery O2 Flow Rate FiO2 09/07/16 20:00 99.5 108 20 95/70 95 I/O 09/07/16 09/07/16 09/07/16 09/08/16 09/08/16 09/08/16 07:00 15:00 23:00 07:00 15:00 23:00 Intake Total 240 ml 1770 ml 270 ml Output Total 50 ml 1000 ml 550 ml Balance 190 ml 770 ml -280 ml Intake Oral 240 ml 600 ml 120 ml Tube Feeding 720 ml Other 450 ml 150 ml Output Urine Total 50 ml 1000 ml 550 ml # Bowel Movements 3 0 Result Diagram: 09/06/16 0650 09/06/16 0650 Objective Remarks GENERAL: Pleasant well-developed patient in no apparent distress. Lying in hospital bed. Awake and alert. CARDIOVASCULAR: Regular rate and rhythm. RESPIRATORY: No accessory muscle use. CTAB. GASTROINTESTINAL: Abdomen soft, non-tender, non-distended. NEUROLOGICAL: Awake and alert. Normal speech. Procedures Right frontal [place] hole with placement of a ventriculostomy catheter Urinary Catheter: Yes, condom catheter Vascular Central Line Catheter: No Procedures Right frontal [place] hole with placement of a ventriculostomy catheter Medications and IVs Current Medications Medications (Trade) Dose Ordered Sig/Paula Route Start Time Stop Time Status Last Admin (Fioricet 325-50-40) 1 tab Q6H PRN PO 05/29/16 15:00 09/07/16 05:53 (Heparin Inj) 5,000 units Q12HR SQ 05/29/16 21:00 09/08/16 08:47 (Tylenol) 650 mg Q6H PRN PO 06/03/16 09:45 09/04/16 20:51 (SEROquel) 25 mg BID PO 06/06/16 09:00 09/08/16 08:47 (Imodium Liq) 2 mg UNSCH PRN TUBE 06/06/16 16:15 08/25/16 21:36 (Lac-Hydrin 12% Lotion) 1 applic BID TOPICAL 07/24/16 21:00 09/08/16 08:48 (Free Water) 150 ml Q6H PEG 07/31/16 22:00 09/08/16 04:00 (Pepcid) 20 mg BID PO 08/10/16 21:00 09/08/16 08:47 (Zofran Odt) 4 mg Q6H PRN PO 08/19/16 15:30 (Miralax) 17 gm Q12H PRN PO 08/25/16 20:00 (Beneprotein Powder) 1 pack BID G-TUBE 09/02/16 13:00 09/08/16 08:48 (Keppra) 1,000 mg Q12HR PO 09/08/16 21:00 A/P Problem List: (1) Dizziness ICD Code: R42 Status: Acute (2) Cerebellar hemorrhage ICD Code: I61.4 Status: Acute (3) AVM (arteriovenous malformation) brain ICD Code: Q28.2 Status: Acute (4) Agitation ICD Code: R45.1 Status: Acute (5) Hermila Ventriculitis Status: Resolved (6) CSF leak ICD Code: G96.0 Status: Resolved (7) HTN (hypertension) ICD Code: I10 Status: Chronic (8) Bacteremia due to Enterococcus ICD Code: R78.81 Status: Resolved (9) Normocytic anemia ICD Code: D64.9 Status: Acute (10) Protein calorie malnutrition ICD Code: E46 Status: Acute Assessment and Plan 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, status post AVM embolization at [facility] followed by suboccipital craniotomy for hematoma evacuation and AVM resection - Keppra 500 mg twice a day for seizure prophylaxis, last Keppra level 10.6 on , dose increased to 1000mg BID, recheck level in one to two weeks - CSF leak - repaired, no need for RESIDENCE DIRECTOR shunt at this time per neurosurgery - neurosurgery signed off - Cognitive evaluation was performed by speech therapy on 08/11; states the patient has made limited to no progress toward stated goals since initial eval on 06/04/16; patient is at new baseline and cognition varies day to day. ST signed off. - Tylenol/Fioricet for HAs - Continue Seroquel Dizziness with episodes hypotension: Hypotension resolved. -Orthostatics were ordered and reveal no orthostasis. -Increased to 150mL free water flushes [id number]. Hypertension: with episodes of hypotension -Blood pressure medication has been on hold since 09/22/16. Patient blood pressure has remained stable. We'll discontinue medications at this time. Normocytic anemia -H&H stable Acute protein calorie malnutrition: Pre-albumin 18 - Dietitian following. - Bolus feedings, Rec Jevity 1.5 w/ 1-can(240ml) @ 0600, 1000, 1400, 1800 and 2200 - Continue free water flushes. - Speech therapy indicates mechanical soft diet and thin liquids in addition to tube feeds (chopped meat). - Continue Ensure TID. Benaprotein twice daily Physical deconditioning - Continue PT/OT Hermila Ventriculitis, resolved - S/P intraventricular Amphotericin B administration. Last dose 06/30. - right ventriculostomy 06/03, replaced 06/12 - S/P Diflucan end date 08/07/16 per ID recommendations. - Repeat 1/2 CSF studies without growth. Enterococcus Bacteremia, resolved - Completed course of Vanc IV 06/24 GI prophylaxis: -Pepcid and Miralax for -Continue Reglan for prokinetic agent Continue bowel regimen DVT Prophylaxis - Heparin subQ No change in present treatment plan Discharge Planning CM following. Patient will require OT and PT at rehab. Patient is approved for SSI and needs payee. [facility] and rehab here to assess patient for possible placement at their facility - we'll await results of their evaluation. Problem Qualifiers (1) Cerebellar hemorrhage: Qualified Code: I61.4 - Nontraumatic intracerebral hemorrhage of cerebellum, unspecified laterality (2) HTN (hypertension): Qualified Code: I10 - Essential hypertension Mona Coleman Sep 08, 2016 09:01
[2016-09-08 20:00] VITALS: BP 98/70; PULSE 93; RESP 16; TEMP 98.7; O2SAT 95
[2016-09-09] MEDS: FREE WATER PEG SCH ×4 (04:00→22:00)
[2016-09-09 08:00] VITALS: BP 108/79; PULSE 81; RESP 17; TEMP 97.8; O2SAT 95
[2016-09-09] MEDS: levETIRAcetam 500 MG TAB PO SCH ×2 (08:26→21:01)
[2016-09-09] MEDS: QUEtiapine FUMARATE 25 MG TAB PO SCH ×2 (08:27→21:01)
[2016-09-09] MEDS: FAMOTIDINE 20 MG TAB PO SCH ×2 (08:27→21:01)
[2016-09-09] MEDS: HEPARIN SODIUM - SQ 10,000 UNITS/ML VIAL SQ SCH ×2 (08:28→21:02)
[2016-09-09] MEDS: LACTIC ACID (AMMONIUM LACTATE) 12% LOTION 225 GM BTL TOPICAL SCH ×2 (09:00→21:02)
[2016-09-09] MEDS: BENEPROTEIN POWDER 1 PACK G-TUBE SCH ×2 (09:00→21:01)
--- NOTE | 2016-09-09 10:34 | HHI.PR ---
Subjective Remarks No acute complaints. No change in clinical status. Objective Vitals Vital Signs Date Time Temp Pulse Resp B/P Pulse Ox O2 Delivery O2 Flow Rate FiO2 09/09/16 08:00 97.8 81 17 108/79 95 09/08/16 20:00 98.7 93 16 98/70 95 I/O 09/08/16 09/08/16 09/08/16 09/09/16 09/09/16 09/09/16 07:00 15:00 23:00 07:00 15:00 23:00 Intake Total 270 ml 1110 ml 150 ml Output Total 550 ml 300 ml 725 ml 400 ml Balance -280 ml 810 ml -575 ml -400 ml Intake Oral 120 ml 480 ml Tube Feeding 480 ml Other 150 ml 150 ml 150 ml Output Urine Total 550 ml 300 ml 725 ml 400 ml # Bowel Movements 0 1 2 1 Result Diagram: 09/06/16 0650 09/06/16 0650 Objective Remarks GENERAL: Pleasant well-developed patient in no apparent distress. SKIN: Patient examined in the presence of RN. No pressure ulcerations to the buttocks. CARDIOVASCULAR: Regular rate and rhythm. RESPIRATORY: No accessory muscle use. CTAB. GASTROINTESTINAL: Abdomen soft, non-tender, non-distended. NEUROLOGICAL: Awake and alert. Normal speech. Procedures Right frontal [place] hole with placement of a ventriculostomy catheter Urinary Catheter: No Vascular Central Line Catheter: No A/P Problem List: (1) Dizziness ICD Code: R42 Status: Acute (2) Cerebellar hemorrhage ICD Code: I61.4 Status: Acute (3) AVM (arteriovenous malformation) brain ICD Code: Q28.2 Status: Acute (4) Agitation ICD Code: R45.1 Status: Acute (5) Hermila Ventriculitis Status: Resolved (6) CSF leak ICD Code: G96.0 Status: Resolved (7) HTN (hypertension) ICD Code: I10 Status: Chronic (8) Bacteremia due to Enterococcus ICD Code: R78.81 Status: Resolved (9) Normocytic anemia ICD Code: D64.9 Status: Acute (10) Protein calorie malnutrition ICD Code: E46 Status: Acute Assessment and Plan S/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 - status post AVM embolization at [facility] followed by suboccipital craniotomy for hematoma evacuation and AVM resection - Keppra 500 mg twice a day for seizure prophylaxis - neurosurgery signed off - Continue PT/OT - Tylenol/Fioricet for HAs - Cognitive evaluation was performed by speech therapy on 08/11; states the patient has made limited to no progress toward stated goals since initial eval on 06/04/16; patient is at new baseline and cognition varies day to day. ST signed off. - Continue PT. CSF leak - repaired - no need for SALON/SPA MANAGER shunt at this time per NSGY - Continue Seroquel Dizziness with episodes of hypotension: Hypotension resolved. -Orthostatics were ordered and reveal no orthostasis. -Free water flushes Increased to 150mL [id number]. Hypertension: with episodes of hypotension -Metoprolol 25 mg every 12 hours with hold parameters. Normocytic anemia -H&H stable Hermila Ventriculitis - S/P intraventricular Amphotericin B administration. Last dose 06/30. - right ventriculostomy 06/03, replaced 06/12 - S/P Diflucan end date 08/07/16 per ID recommendations. - Repeat 2 CSF studies without growth. Enterococcus Bacteremia - Completed course of Vanc IV 06/24 Acute protein calorie malnutrition: - Calorie count was obtained. I spoke with dietitian today (09/09) who advises continuing current number of bolus feeds as the patient has now increased his po intake. TF'ing Jevity 1.5 bolus 1-can(240ml) @ 1000, 1400 and 2200. - Continue free water flushes. - Beneprotein packet bid - Speech therapy indicates mechanical soft diet and thin liquids in addition to tube feeds (chopped meat). - Continue Ensure TID. Resp: Continue Acapella, incentive spirometry. GI prophylaxis: -Pepcid and Miralax. -Continue Reglan for prokinetic agent DVT Prophylaxis - SCDs - Heparin subQ Discharge Planning CM following. Patient will require OT and PT at rehab. 09/08/16: Per CM, a payee was found for patient. Waiting for Medicaid approval. [facility] evaluating. Problem Qualifiers (1) Cerebellar hemorrhage: Qualified Code: I61.4 - Nontraumatic intracerebral hemorrhage of cerebellum, unspecified laterality (2) HTN (hypertension): Qualified Code: I10 - Essential hypertension Ivory Constantino Sep 09, 2016 10:34
[2016-09-09 20:00] VITALS: BP 99/75; PULSE 85; RESP 16; TEMP 97.6; O2SAT 97
[2016-09-10] MEDS: FREE WATER PEG SCH ×4 (04:00→20:37)
[2016-09-10 08:00] VITALS: BP 120/90; PULSE 117; RESP 17; TEMP 96.7; O2SAT 93
[2016-09-10] MEDS: LACTIC ACID (AMMONIUM LACTATE) 12% LOTION 225 GM BTL TOPICAL SCH ×2 (09:00→20:38)
[2016-09-10] MEDS: BENEPROTEIN POWDER 1 PACK G-TUBE SCH ×2 (09:00→20:37)
[2016-09-10] MEDS: FAMOTIDINE 20 MG TAB PO SCH ×2 (09:11→20:36)
[2016-09-10] MEDS: levETIRAcetam 500 MG TAB PO SCH ×2 (09:11→20:36)
[2016-09-10] MEDS: HEPARIN SODIUM - SQ 10,000 UNITS/ML VIAL SQ SCH ×2 (09:11→20:36)
[2016-09-10] MEDS: QUEtiapine FUMARATE 25 MG TAB PO SCH ×2 (09:11→20:36)
--- NOTE | 2016-09-10 10:25 | HHI.PR ---
Subjective Remarks No acute complaints. No change in clinical status. Objective Vitals Vital Signs Date Time Temp Pulse Resp B/P Pulse Ox O2 Delivery O2 Flow Rate FiO2 09/10/16 08:00 96.7 117 17 120/90 93 09/09/16 20:00 97.6 85 16 99/75 97 I/O 09/09/16 09/09/16 09/09/16 09/10/16 09/10/16 09/10/16 07:00 15:00 23:00 07:00 15:00 23:00 Intake Total 310 ml Output Total 400 ml 700 ml 400 ml Balance -400 ml -390 ml -400 ml Intake Oral 310 ml Output Urine Total 400 ml 700 ml 400 ml # Voids 3 # Bowel Movements 1 0 0 Result Diagram: 09/06/16 0650 09/06/16 0650 Objective Remarks GENERAL: Pleasant well-developed patient in no apparent distress. CARDIOVASCULAR: Regular rate and rhythm. RESPIRATORY: No accessory muscle use. Mucus audible in the upper airway. Rhonchi over the central anterior chest and right lower lobe. GASTROINTESTINAL: Abdomen soft, non-tender, non-distended. NEUROLOGICAL: Awake and alert. Normal speech. Procedures Right frontal [place] hole with placement of a ventriculostomy catheter Urinary Catheter: No Vascular Central Line Catheter: No A/P Problem List: (1) Dizziness ICD Code: R42 Status: Acute (2) Cerebellar hemorrhage ICD Code: I61.4 Status: Acute (3) AVM (arteriovenous malformation) brain ICD Code: Q28.2 Status: Acute (4) Agitation ICD Code: R45.1 Status: Acute (5) Hermila Ventriculitis Status: Resolved (6) CSF leak ICD Code: G96.0 Status: Resolved (7) HTN (hypertension) ICD Code: I10 Status: Chronic (8) Bacteremia due to Enterococcus ICD Code: R78.81 Status: Resolved (9) Normocytic anemia ICD Code: D64.9 Status: Acute (10) Protein calorie malnutrition ICD Code: E46 Status: Acute Assessment and Plan S/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 - status post [facility] embol[facility] followed by suboccipital craniotomy for hematoma evacuation and AVM resection - Keppra 500 mg twice a day for seizure prophylaxis - neurosurgery signed off - Continue PT/OT - Tylenol/Fioricet for HAs - Cognitive evaluation was performed by speech therapy on 08/11; states the patient has made limited to no progress toward stated goals since initial eval on 06/04/16; patient is at new baseline and cognition varies day to day. ST signed off. - Continue PT. CSF leak - repaired - no need for HAND PATCHER shunt at this time per NSGY - Continue Seroquel Dizziness with episodes of hypotension: Hypotension resolved. -Orthostatics were ordered and reveal no orthostasis. -Free water flushes Increased to 150mL [id number]. Hypertension: with episodes of hypotension -Metoprolol 25 mg every 12 hours with hold parameters. Normocytic anemia -H&H stable Hermial Ventriculitis - S/P intraventricular Amphotericin B administration. Last dose 06/30. - right ventriculostomy 06/03, replaced 06/12 - S/P Diflucan end date 08/07/16 per ID recommendations. - Repeat 2 CSF studies without growth. Enterococcus Bacteremia - Completed course of Vanc IV 06/24 Acute protein calorie malnutrition: - Calorie count was obtained. I spoke with dietitian today (09/09) who advises continuing current number of bolus feeds as the patient has now increased his po intake. TF'ing Jevity 1.5 bolus 1-can(240ml) @ 1000, 1400 and 2200. - Continue free water flushes. - Beneprotein packet bid - Speech therapy indicates mechanical soft diet and thin liquids in addition to tube feeds (chopped meat). - Continue Ensure TID. Resp: Patient has mucus in his upper airway and rhonchi noted on exam. His heart rate is elevated with 93% O2 saturation on room air this morning, but he is afebrile. He has difficulty coughing up mucus which is chronic. He is advised to continue Acapella. Continue incentive spirometry. If heart rate or O2 saturation fails to improve may need to perform chest x-ray. GI prophylaxis: -Pepcid and Miralax. -Continue Reglan for prokinetic agent DVT Prophylaxis - SCDs - Heparin subQ Discharge Planning CM following. Patient will require OT and PT at rehab. 09/08/16: Per CM, a payee was found for patient. Waiting for Medicaid approval. [facility] evaluating. Problem Qualifiers (1) Cerebellar hemorrhage: Qualified Code: I61.4 - Nontraumatic intracerebral hemorrhage of cerebellum, unspecified laterality (2) HTN (hypertension): Qualified Code: I10 - Essential hypertension Ivory Constantino Sep 10, 2016 10:25
[2016-09-10 20:00] VITALS: BP 108/80; PULSE 119; RESP 20; TEMP 99.6; O2SAT 95
[2016-09-11] MEDS: FREE WATER PEG SCH ×4 (04:00→21:28)
[2016-09-11 08:00] VITALS: BP 102/77; PULSE 83; RESP 20; TEMP 95.9; O2SAT 96
[2016-09-11] MEDS: QUEtiapine FUMARATE 25 MG TAB PO SCH ×2 (08:25→21:27)
[2016-09-11] MEDS: LACTIC ACID (AMMONIUM LACTATE) 12% LOTION 225 GM BTL TOPICAL SCH ×2 (08:26→21:28)
[2016-09-11] MEDS: LOPERAMIDE HCL SOLN 2 MG/10 ML UDC TUBE PRN (08:26)
[2016-09-11] MEDS: FAMOTIDINE 20 MG TAB PO SCH ×2 (08:26→21:27)
[2016-09-11] MEDS: levETIRAcetam 500 MG TAB PO SCH ×2 (08:26→21:27)
[2016-09-11] MEDS: HEPARIN SODIUM - SQ 10,000 UNITS/ML VIAL SQ SCH ×2 (08:26→21:27)
[2016-09-11] MEDS: BENEPROTEIN POWDER 1 PACK G-TUBE SCH ×2 (08:34→21:28)
--- NOTE | 2016-09-11 10:42 | HHI.PR ---
Subjective Remarks No acute complaints. No change in clinical status. Objective Vitals Vital Signs Date Time Temp Pulse Resp B/P Pulse Ox O2 Delivery O2 Flow Rate FiO2 09/11/16 08:00 95.9 83 20 102/77 96 09/10/16 20:00 99.6 119 20 108/80 95 I/O 09/10/16 09/10/16 09/10/16 09/11/16 09/11/16 09/11/16 07:00 15:00 23:00 07:00 15:00 23:00 Intake Total 480 ml 780 ml Balance 480 ml 780 ml Intake Oral 480 ml 200 ml Tube Feeding 260 ml Tube Irrigant 320 ml # Voids 3 1 # Bowel Movements 0 1 1 Objective Remarks GENERAL: Pleasant well-developed patient in no apparent distress. CARDIOVASCULAR: Regular rate and rhythm. RESPIRATORY: No accessory muscle use. Bowel sounds audible over the L lung. GASTROINTESTINAL: Abdomen soft, non-tender, non-distended. NEUROLOGICAL: Awake and alert. Normal speech. Procedures Right frontal [place] hole with placement of a ventriculostomy catheter Urinary Catheter: No Vascular Central Line Catheter: No A/P Problem List: (1) Dizziness ICD Code: R42 Status: Acute (2) Cerebellar hemorrhage ICD Code: I61.4 Status: Acute (3) AVM (arteriovenous malformation) brain ICD Code: Q28.2 Status: Acute (4) Agitation ICD Code: R45.1 Status: Acute (5) Hermila Ventriculitis Status: Resolved (6) CSF leak ICD Code: G96.0 Status: Resolved (7) HTN (hypertension) ICD Code: I10 Status: Chronic (8) Bacteremia due to Enterococcus ICD Code: R78.81 Status: Resolved (9) Normocytic anemia ICD Code: D64.9 Status: Acute (10) Protein calorie malnutrition ICD Code: E46 Status: Acute Assessment and Plan 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 ST signed off. - Continue PT. CSF leak - repaired - no need for WAREHOUSE INVENTORY CLERK shunt at this time per NSGY - Continue Seroquel Dizziness with episodes of hypotension: Hypotension resolved. -Orthostatics were ordered and reveal no orthostasis. -Free water flushes Increased to 150mL [id number]. Hypertension: with episodes of hypotension -Metoprolol 25 mg every 12 hours with hold parameters. Normocytic anemia -H&H stable Hermila Ventriculitis - S/P intraventricular Amphotericin B administration. Last dose 06/30. - right ventriculostomy 06/03, replaced 06/12 - S/P Diflucan end date 08/07/16 per ID recommendations. - Repeat 07/07 CSF studies without growth. Enterococcus Bacteremia - Completed course of Vanc IV 06/24 Acute protein calorie malnutrition: - Calorie count was obtained. I spoke with dietitian today (09/09) who advises continuing current number of bolus feeds as the patient has now increased his po intake. TF'ing Jevity 1.5 bolus 1-can(240ml) @ 1000, 1400 and 2200. - Continue free water flushes. - Beneprotein packet bid - Speech therapy indicates mechanical soft diet and thin liquids in addition to tube feeds (chopped meat). - Continue Ensure TID. Resp: Continue Acapella. Continue incentive spirometry. GI prophylaxis: -Pepcid and Miralax. -Continue Reglan for prokinetic agent DVT Prophylaxis - SCDs - Heparin subQ Discharge Planning CM following. Patient will require OT and PT at rehab. 09/08/16: Per CM, a payee was found for patient. Waiting for Medicaid approval. [facility] evaluating. Problem Qualifiers (1) Cerebellar hemorrhage: Qualified Code: I61.4 - Nontraumatic intracerebral hemorrhage of cerebellum, unspecified laterality (2) HTN (hypertension): Qualified Code: I10 - Essential hypertension Ivory Constantino Sep 11, 2016 10:42
[2016-09-11 20:00] VITALS: BP_SYST 102; BP_SYST 115; BP_DIAS 66; BP_DIAS 84; PULSE 70; PULSE 94; RESP 16; TEMP 98.4; TEMP 99.8; O2SAT 100; O2SAT 95
[2016-09-12] MEDS: FREE WATER PEG SCH ×4 (04:35→21:20)
[2016-09-12 08:00] VITALS: BP 94/69; PULSE 90; RESP 18; TEMP 97.9; O2SAT 92
[2016-09-12] MEDS: BENEPROTEIN POWDER 1 PACK G-TUBE SCH ×2 (09:00→20:31)
[2016-09-12] MEDS: HEPARIN SODIUM - SQ 10,000 UNITS/ML VIAL SQ SCH ×2 (09:29→20:24)
[2016-09-12] MEDS: QUEtiapine FUMARATE 25 MG TAB PO SCH ×2 (09:29→20:31)
[2016-09-12] MEDS: FAMOTIDINE 20 MG TAB PO SCH ×2 (09:29→20:25)
[2016-09-12] MEDS: levETIRAcetam 500 MG TAB PO SCH ×2 (09:30→20:25)
[2016-09-12] MEDS: LACTIC ACID (AMMONIUM LACTATE) 12% LOTION 225 GM BTL TOPICAL SCH ×2 (09:31→20:25)
--- NOTE | 2016-09-12 11:26 | HHI.PR ---
Subjective Remarks Patient sitting in urine. No acute complaints otherwise. No change in clinical status. Objective Vitals Vital Signs Date Time Temp Pulse Resp B/P Pulse Ox O2 Delivery O2 Flow Rate FiO2 09/12/16 08:00 97.9 90 18 94/69 92 09/11/16 20:00 98.4 94 16 102/84 95 I/O 09/11/16 09/11/16 09/11/16 09/12/16 09/12/16 09/12/16 07:00 15:00 23:00 07:00 15:00 23:00 Intake Total 780 ml 240 ml 240 ml Output Total 450 ml 275 ml Balance 780 ml -210 ml -35 ml Intake Oral 200 ml 240 ml Oral Supplement 240 ml Tube Feeding 260 ml Tube Irrigant 320 ml Output Urine Total 450 ml 275 ml # Voids 1 # Bowel Movements 1 0 0 1 Objective Remarks GENERAL: Pleasant well-developed patient in no apparent distress. CARDIOVASCULAR: Regular rate and rhythm. RESPIRATORY: No accessory muscle use. CTAB. GASTROINTESTINAL: Abdomen soft, non-tender, non-distended. NEUROLOGICAL: Awake and alert. Normal speech. Procedures Right frontal [place] hole with placement of a ventriculostomy catheter Urinary Catheter: No Vascular Central Line Catheter: No A/P Problem List: (1) Dizziness ICD Code: R42 Status: Acute (2) Cerebellar hemorrhage ICD Code: I61.4 Status: Acute (3) AVM (arteriovenous malformation) brain ICD Code: Q28.2 Status: Acute (4) Agitation ICD Code: R45.1 Status: Acute (5) Hermila Ventriculitis Status: Resolved (6) CSF leak ICD Code: G96.0 Status: Resolved (7) HTN (hypertension) ICD Code: I10 Status: Chronic (8) Bacteremia due to Enterococcus ICD Code: R78.81 Status: Resolved (9) Normocytic anemia ICD Code: D64.9 Status: Acute (10) Protein calorie malnutrition ICD Code: E46 Status: Acute Assessment and Plan 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 ST signed off. - Continue PT. CSF leak - repaired - no need for STENO POOL SUPERVISOR shunt at this time per NSGY - Continue Seroquel Dizziness with episodes of hypotension: Hypotension resolved. -Orthostatics were ordered and reveal no orthostasis. -Free water flushes Increased to 150mL [id number]. Hypertension: with episodes of hypotension -Metoprolol 25 mg every 12 hours with hold parameters. Normocytic anemia -H&H stable Hermila Ventriculitis - S/P intraventricular Amphotericin B administration. Last dose 06/30. - right ventriculostomy 06/03, replaced 06/12 - S/P Diflucan end date 08/07/16 per ID recommendations. - Repeat 2 CSF studies without growth. Enterococcus Bacteremia - Completed course of Vanc IV 06/24 Acute protein calorie malnutrition: - Calorie count was obtained. I spoke with dietitian today (09/09) who advises continuing current number of bolus feeds as the patient has now increased his po intake. TF'ing Jevity 1.5 bolus 1-can(240ml) @ 1000, 1400 and 2200. - Continue free water flushes. - Beneprotein packet bid - Speech therapy indicates mechanical soft diet and thin liquids in addition to tube feeds (chopped meat). - Continue Ensure TID. Resp: Continue Acapella. Continue incentive spirometry. GI prophylaxis: -Pepcid and Miralax. -Continue Reglan for prokinetic agent DVT Prophylaxis - SCDs - Heparin subQ Discharge Planning CM following. Patient will require OT and PT at rehab. 09/08/16: Per CM, a payee was found for patient. Waiting for Medicaid approval. [facility] evaluating. Problem Qualifiers (1) Cerebellar hemorrhage: Qualified Code: I61.4 - Nontraumatic intracerebral hemorrhage of cerebellum, unspecified laterality (2) HTN (hypertension): Qualified Code: I10 - Essential hypertension Ivory Constantino Sep 12, 2016 11:26 Freida Galeas MD Sep 12, 2016 16:44
[2016-09-12 20:00] VITALS: BP 100/82; PULSE 98; RESP 16; TEMP 98.3; O2SAT 96
[2016-09-13] MEDS: FREE WATER PEG SCH ×4 (04:00→22:00)
[2016-09-13 08:00] VITALS: BP 97/72; PULSE 81; RESP 18; TEMP 97.4; O2SAT 97
[2016-09-13] MEDS: LACTIC ACID (AMMONIUM LACTATE) 12% LOTION 225 GM BTL TOPICAL SCH ×2 (09:00→21:00)
[2016-09-13] MEDS: BENEPROTEIN POWDER 1 PACK G-TUBE SCH ×2 (09:00→21:00)
[2016-09-13] MEDS: HEPARIN SODIUM - SQ 10,000 UNITS/ML VIAL SQ SCH ×2 (09:41→22:00)
[2016-09-13] MEDS: FAMOTIDINE 20 MG TAB PO SCH ×2 (09:41→22:01)
[2016-09-13] MEDS: QUEtiapine FUMARATE 25 MG TAB PO SCH ×2 (09:41→22:01)
[2016-09-13] MEDS: levETIRAcetam 500 MG TAB PO SCH ×2 (09:41→22:01)
--- NOTE | 2016-09-13 11:35 | HHI.PR ---
Subjective Remarks Patient states his neck hurts likely due to the pillow position. No change in clinical status. Objective Vitals Vital Signs Date Time Temp Pulse Resp B/P Pulse Ox O2 Delivery O2 Flow Rate FiO2 09/13/16 08:00 97.4 81 18 97/72 97 09/12/16 20:00 98.3 98 16 100/82 96 I/O 09/12/16 09/12/16 09/12/16 09/13/16 09/13/16 09/13/16 07:00 15:00 23:00 07:00 15:00 23:00 Intake Total 240 ml 290 ml 900 ml 120 ml Output Total 275 ml 550 ml 250 ml Balance -35 ml -260 ml 900 ml -130 ml Intake Oral 240 ml 290 ml 120 ml 120 ml Oral Supplement 240 ml Tube Feeding 240 ml Tube Irrigant 100 ml Other 200 ml Output Urine Total 275 ml 550 ml 250 ml # Voids 1 1 # Bowel Movements 1 0 2 1 Objective Remarks GENERAL: Pleasant well-developed patient in no apparent distress. CARDIOVASCULAR: Regular rate and rhythm. RESPIRATORY: No accessory muscle use. CTAB. GASTROINTESTINAL: Abdomen soft, non-tender, non-distended. NEUROLOGICAL: Awake and alert. Normal speech. Procedures Right frontal [place] hole with placement of a ventriculostomy catheter Urinary Catheter: No Vascular Central Line Catheter: No A/P Problem List: (1) Dizziness ICD Code: R42 Status: Acute (2) Cerebellar hemorrhage ICD Code: I61.4 Status: Acute (3) AVM (arteriovenous malformation) brain ICD Code: Q28.2 Status: Acute (4) Agitation ICD Code: R45.1 Status: Acute (5) Hermila Ventriculitis Status: Resolved (6) CSF leak ICD Code: G96.0 Status: Resolved (7) HTN (hypertension) ICD Code: I10 Status: Chronic (8) Bacteremia due to Enterococcus ICD Code: R78.81 Status: Resolved (9) Normocytic anemia ICD Code: D64.9 Status: Acute (10) Protein calorie malnutrition ICD Code: E46 Status: Acute Assessment and Plan 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 ST signed off. - Continue PT. CSF leak - repaired - no need for RODDING MACHINE TENDER shunt at this time per NSGY - Continue Seroquel Dizziness with episodes of hypotension: Hypotension resolved. -Orthostatics were ordered and reveal no orthostasis. -Free water flushes Increased to 150mL [id number]. Hypertension: with episodes of hypotension -Metoprolol 25 mg every 12 hours with hold parameters. Normocytic anemia -H&H stable Hermila Ventriculitis - S/P intraventricular Amphotericin B administration. Last dose 06/30. - right ventriculostomy 06/03, replaced 06/12 - S/P Diflucan end date 08/07/16 per ID recommendations. - Repeat /2 CSF studies without growth. Enterococcus Bacteremia - Completed course of Vanc IV 06/24 Acute protein calorie malnutrition: - Calorie count was obtained. I spoke with dietitian today (09/09) who advises continuing current number of bolus feeds as the patient has now increased his po intake. TF'ing Jevity 1.5 bolus 1-can(240ml) @ 1000, 1400 and 2200. - Continue free water flushes. - Beneprotein packet bid - Speech therapy indicates mechanical soft diet and thin liquids in addition to tube feeds (chopped meat). - Continue Ensure TID. Resp: Continue Acapella. Continue incentive spirometry. GI prophylaxis: -Pepcid and Miralax. -Continue Reglan for prokinetic agent DVT Prophylaxis - SCDs - Heparin subQ Discharge Planning CM following. Patient will require OT and PT at rehab. 09/08/16: Per CM, a payee was found for patient. Waiting for Medicaid approval. [facility] evaluating. Problem Qualifiers (1) Cerebellar hemorrhage: Qualified Code: I61.4 - Nontraumatic intracerebral hemorrhage of cerebellum, unspecified laterality (2) HTN (hypertension): Qualified Code: I10 - Essential hypertension Ivory Constantino Sep 13, 2016 11:35
[2016-09-13 20:29] VITALS: BP 120/68; PULSE 78; RESP 18; TEMP 98.7; O2SAT 95
[2016-09-14] MEDS: FREE WATER PEG SCH ×4 (04:00→22:00)
[2016-09-14 08:00] VITALS: BP 103/71; PULSE 81; RESP 17; TEMP 97.2; O2SAT 98
[2016-09-14] MEDS: LACTIC ACID (AMMONIUM LACTATE) 12% LOTION 225 GM BTL TOPICAL SCH ×2 (09:00→21:00)
[2016-09-14] MEDS: BENEPROTEIN POWDER 1 PACK G-TUBE SCH ×2 (09:00→21:00)
[2016-09-14] MEDS: HEPARIN SODIUM - SQ 10,000 UNITS/ML VIAL SQ SCH ×2 (09:16→21:49)
[2016-09-14] MEDS: levETIRAcetam 500 MG TAB PO SCH ×2 (09:17→21:48)
[2016-09-14] MEDS: QUEtiapine FUMARATE 25 MG TAB PO SCH ×2 (09:17→21:48)
[2016-09-14] MEDS: FAMOTIDINE 20 MG TAB PO SCH ×2 (09:17→21:48)
--- NOTE | 2016-09-14 16:44 | HHI.PR ---
Subjective Remarks Patient seen today in follow-up for ICH and AVM. Patient poorly motivated per physical therapy. Case discussed at length with PT and with [facility] nursing team. Patient has no new complaints. Objective Vitals Vital Signs Date Time Temp Pulse Resp B/P Pulse Ox O2 Delivery O2 Flow Rate FiO2 09/14/16 08:00 97.2 81 17 103/71 98 09/13/16 20:29 98.7 78 18 120/68 95 I/O 09/13/16 09/13/16 09/13/16 09/14/16 09/14/16 09/14/16 07:00 15:00 23:00 07:00 15:00 23:00 Intake Total 120 ml 1710 ml 150 ml 960 ml Output Total 250 ml 300 ml 550 ml 1150 ml Balance -130 ml 1410 ml -400 ml -190 ml Intake Oral 120 ml 1320 ml 960 ml Tube Feeding 240 ml Other 150 ml 150 ml Output Urine Total 250 ml 300 ml 550 ml 1150 ml # Bowel Movements 1 1 1 1 Objective Remarks GENERAL: This is a well-nourished, well-developed patient, in no apparent distress. CARDIOVASCULAR: Regular rate and rhythm without murmurs, gallops, or rubs. RESPIRATORY: Clear to auscultation. Breath sounds equal bilaterally. No wheezes , rales, or rhonchi. GASTROINTESTINAL: Abdomen soft, non-tender, nondistended. Normal active bowel sounds MUSCULOSKELETAL: Extremities without clubbing, cyanosis, or edema. NEURO: Alert & Oriented x4 to person, place, time, situation. Moves all ext x4 Procedures Right frontal [place] hole with placement of a ventriculostomy catheter A/P Assessment and Plan Hospital day #108 for this patient with ICH and AV malformation. 1. S/P Subarachnoid hemorrhage with residual cognitive deficits, cont Keppra 500 mg twice a day for seizure prophylaxis, PT/OT, ST signed off due to poor progress/ptn at baseline 2. Hypertension: with episodes of hypotension, cont Metoprolol 25 mg every 12 hours with hold parameters. 3. ID:Hermila Ventriculitis resolved, Enterococcus Bacteremia resolved 4. Acute protein calorie malnutrition: cont bolus TF, Free water; mechanical soft diet 09/14 Neuro psych eval for Brain injury eval; depression and poor motivation PPX pepcid, miralax, heparin Freida Galeas MD Sep 14, 2016 16:44
[2016-09-14 22:54] VITALS: BP 113/71; PULSE 76; RESP 18; TEMP 97.9; O2SAT 97
[2016-09-15] MEDS: FREE WATER PEG SCH ×4 (04:00→22:10)
[2016-09-15 08:00] VITALS: BP 108/77; PULSE 73; RESP 16; TEMP 95.9; O2SAT 99
[2016-09-15] MEDS: HEPARIN SODIUM - SQ 10,000 UNITS/ML VIAL SQ SCH ×2 (09:00→22:11)
[2016-09-15] MEDS: BENEPROTEIN POWDER 1 PACK G-TUBE SCH ×2 (09:00→22:10)
--- NOTE | 2016-09-15 09:35 | HHI.PR ---
Subjective Remarks No acute complaints. No change in clinical status. Objective Vitals Vital Signs Date Time Temp Pulse Resp B/P Pulse Ox O2 Delivery O2 Flow Rate FiO2 09/15/16 08:00 95.9 73 16 108/77 99 09/14/16 22:54 97.9 76 18 113/71 97 I/O 09/14/16 09/14/16 09/14/16 09/15/16 09/15/16 09/15/16 07:00 15:00 23:00 07:00 15:00 23:00 Intake Total 150 ml 960 ml Output Total 550 ml 1150 ml 600 ml 150 ml Balance -400 ml -190 ml -600 ml -150 ml Intake Oral 960 ml Other 150 ml Output Urine Total 550 ml 1150 ml 600 ml 150 ml # Bowel Movements 1 1 1 0 Objective Remarks GENERAL: Pleasant well-developed patient in no apparent distress. CARDIOVASCULAR: Regular rate and rhythm. RESPIRATORY: No accessory muscle use. CTAB. GASTROINTESTINAL: Abdomen soft, non-tender, non-distended. NEUROLOGICAL: Sleeping but arouses to voice and answers questions. Normal speech. Procedures Right frontal [place] hole with placement of a ventriculostomy catheter Urinary Catheter: No Vascular Central Line Catheter: No A/P Problem List: (1) Dizziness ICD Code: R42 Status: Acute (2) Cerebellar hemorrhage ICD Code: I61.4 Status: Acute (3) AVM (arteriovenous malformation) brain ICD Code: Q28.2 Status: Acute (4) Agitation ICD Code: R45.1 Status: Acute (5) Hermila Ventriculitis Status: Resolved (6) CSF leak ICD Code: G96.0 Status: Resolved (7) HTN (hypertension) ICD Code: I10 Status: Chronic (8) Bacteremia due to Enterococcus ICD Code: R78.81 Status: Resolved (9) Normocytic anemia ICD Code: D64.9 Status: Acute (10) Protein calorie malnutrition ICD Code: E46 Status: Acute Assessment and Plan 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 ST signed off. - Continue PT. - Neuropsychiatric consult ordered, pending. CSF leak - repaired - no need for TUNGSTEN REFINER shunt at this time per NSGY - Continue Seroquel Dizziness with episodes of hypotension: Hypotension resolved. -Orthostatics were ordered and reveal no orthostasis. -Free water flushes Increased to 150mL [id number]. Hypertension: with episodes of hypotension -Metoprolol 25 mg every 12 hours with hold parameters. Normocytic anemia -H&H stable Hermila Ventriculitis - S/P intraventricular Amphotericin B administration. Last dose 06/30. - right ventriculostomy 06/03, replaced 06/12 - S/P Diflucan end date 08/07/16 per ID recommendations. - Repeat /2 CSF studies without growth. Enterococcus Bacteremia - Completed course of Vanc IV 06/24 Acute protein calorie malnutrition: - Calorie count was obtained. I spoke with dietitian today (09/09) who advises continuing current number of bolus feeds as the patient has now increased his po intake. TF'ing Jevity 1.5 bolus 1-can(240ml) @ 1000, 1400 and 2200. - Continue free water flushes. - Beneprotein packet bid - Speech therapy indicates mechanical soft diet and thin liquids in addition to tube feeds (chopped meat). - Continue Ensure TID. Resp: Continue Acapella. Continue incentive spirometry. GI prophylaxis: -Pepcid and Miralax. -Continue Reglan for prokinetic agent DVT Prophylaxis - SCDs - Heparin subQ Discharge Planning CM following. Patient will require OT and PT at rehab. 09/08/16: Per CM, a payee was found for patient. Waiting for Medicaid approval. [facility] evaluating. Problem Qualifiers (1) Cerebellar hemorrhage: Qualified Code: I61.4 - Nontraumatic intracerebral hemorrhage of cerebellum, unspecified laterality (2) HTN (hypertension): Qualified Code: I10 - Essential hypertension Ivory Constantino Sep 15, 2016 09:35
[2016-09-15] MEDS: FAMOTIDINE 20 MG TAB PO SCH ×2 (10:18→22:10)
[2016-09-15] MEDS: QUEtiapine FUMARATE 25 MG TAB PO SCH ×2 (10:18→22:10)
[2016-09-15] MEDS: levETIRAcetam 500 MG TAB PO SCH ×2 (10:19→22:10)
[2016-09-15] MEDS: LACTIC ACID (AMMONIUM LACTATE) 12% LOTION 225 GM BTL TOPICAL SCH ×2 (10:20→22:11)
[2016-09-15 20:00] VITALS: BP 106/79; PULSE 92; RESP 20; TEMP 97.9; O2SAT 96
[2016-09-16] MEDS: FREE WATER PEG SCH ×4 (04:30→22:00)
[2016-09-16 08:00] VITALS: BP 101/79; PULSE 78; RESP 16; TEMP 96.6; O2SAT 98
[2016-09-16] MEDS: BENEPROTEIN POWDER 1 PACK G-TUBE SCH ×2 (09:00→21:59)
[2016-09-16] MEDS: HEPARIN SODIUM - SQ 10,000 UNITS/ML VIAL SQ SCH ×2 (09:17→21:56)
[2016-09-16] MEDS: FAMOTIDINE 20 MG TAB PO SCH ×2 (09:17→21:55)
[2016-09-16] MEDS: LACTIC ACID (AMMONIUM LACTATE) 12% LOTION 225 GM BTL TOPICAL SCH ×2 (09:18→21:58)
[2016-09-16] MEDS: levETIRAcetam 500 MG TAB PO SCH ×2 (09:18→21:55)
[2016-09-16] MEDS: QUEtiapine FUMARATE 25 MG TAB PO SCH ×2 (09:18→21:56)
--- NOTE | 2016-09-16 12:48 | HHI.PR ---
Subjective Remarks Patient seen and examined today. Patient denies any new complaints. No change in clinical status. Nursing staff indicates that the patient wants to eat more. We'll need to confer with dietary to see if patient can have increased meals. Objective Vitals Vital Signs Date Time Temp Pulse Resp B/P Pulse Ox O2 Delivery O2 Flow Rate FiO2 09/16/16 08:00 96.6 78 16 101/79 98 09/15/16 20:00 97.9 92 20 106/79 96 I/O 09/15/16 09/15/16 09/15/16 09/16/16 09/16/16 09/16/16 07:00 15:00 23:00 07:00 15:00 23:00 Intake Total 730 ml 660 ml 240 ml Output Total 150 ml 650 ml 350 ml Balance -150 ml 80 ml 310 ml 240 ml Intake Oral 730 ml 240 ml 60 ml Tube Feeding 240 ml Tube Irrigant 180 ml 180 ml Output Urine Total 150 ml 650 ml 350 ml # Voids 1 2 # Bowel Movements 0 1 1 1 Objective Remarks GENERAL: Well-developed, well-nourished, in no acute distress. alert and awake. Orientated to person only HEENT: Head is normocephalic without any lesions or masses noted. Facial features are symmetric. Eyes: Extraocular muscles are intact. Conjunctivae were clear. NECK: Supple without any masses. Trachea midline no deviation. No JVD, CARDIAC: Regular rhythm, regular rate. S1/S2 are heard. No murmurs gallops or rubs. LUNGS: Clear to auscultation bilaterally. No wheeze, rhonchi or rales. No use of accessory muscles on inspiration or expiration. ABDOMEN: Soft, nontender. Nondistended. Bowel sounds heard in all 4 quadrants. No organomegaly or masses. Negative rebound, negative guarding. PEG tube site clear without signs of infection EXTREMITIES: No edema, pulses are equal bilaterally. No cyanosis or clubbing NEUROLOGY: Mood and affect appear appropriate. Cranial nerves II through XII grossly intact. Procedures Right frontal [place] hole with placement of a ventriculostomy catheter Urinary Catheter: No Vascular Central Line Catheter: No A/P Assessment and Plan 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, status post AVM embolization at [facility] followed by suboccipital craniotomy for hematoma evacuation and AVM resection - Keppra 500 mg twice a day for seizure prophylaxis - CSF leak - repaired, no need for SPIKE MAKER shunt at this time per neurosurgery - neurosurgery signed off - Cognitive evaluation was performed by speech therapy on 08/11; states the patient has made limited to no progress toward stated goals since initial eval on 06/04/16; patient is at new baseline and cognition varies day to day. ST signed off. - Tylenol/Fioricet for HAs - Continue Seroquel - Neuropsychiatry consultation has been requested. Dizziness with episodes hypotension: Hypotension resolved. -Orthostatics were ordered and reveal no orthostasis. -Increased to 150mL free water flushes [id number]. Hypertension: with episodes of hypotension -Blood pressure medication has been on hold since 09/22/16. Patient blood pressure has remained stable. We'll discontinue medications at this time. Normocytic anemia -H&H stable Acute protein calorie malnutrition: Pre-albumin 18 - Dietitian following. - Bolus feedings, Rec Jevity 1.5 w/ 1-can(240ml) @ 0600, 1000, 1400, and 2200 - Continue free water flushes. - Speech therapy indicates mechanical soft diet and thin liquids in addition to tube feeds (chopped meat). Patient may have double trays - Continue Ensure TID. Benaprotein twice daily Physical deconditioning - Continue PT/OT Hermila Ventriculitis, resolved - S/P intraventricular Amphotericin B administration. Last dose 06/30. - right ventriculostomy 06/03, replaced 06/12 - S/P Diflucan end date 08/07/16 per ID recommendations. - Repeat 07/07 CSF studies without growth. Enterococcus Bacteremia, resolved - Completed course of Vanc IV 06/24 GI prophylaxis: -Pepcid and Miralax for -Continue Reglan for prokinetic agent Continue bowel regimen DVT Prophylaxis - Heparin subQ No change in present treatment plan Discharge Planning Discharge planning per case management. Physical therapy and occupational therapy still recommending rehabilitation. Patient has been approved for SSI and needs payee. [facility] has evaluated the patient on 09/03/16. Awaiting case management to arrange someone to be able to sign him in to [facility] Stanley Ruiz Sep 16, 2016 12:48
[2016-09-16 20:00] VITALS: BP 105/80; PULSE 88; RESP 20; TEMP 96; O2SAT 97
[2016-09-16] MEDS: ACETAMINOPHEN 325 MG TAB PO PRN (23:59)
[2016-09-17] MEDS: FREE WATER PEG SCH ×4 (04:00→22:00)
[2016-09-17 08:00] VITALS: BP 95/70; PULSE 83; RESP 20; TEMP 96.9; O2SAT 95
[2016-09-17] MEDS: FAMOTIDINE 20 MG TAB PO SCH ×2 (08:15→21:36)
[2016-09-17] MEDS: HEPARIN SODIUM - SQ 10,000 UNITS/ML VIAL SQ SCH ×2 (08:15→21:37)
[2016-09-17] MEDS: levETIRAcetam 500 MG TAB PO SCH ×2 (08:15→21:36)
[2016-09-17] MEDS: QUEtiapine FUMARATE 25 MG TAB PO SCH ×2 (08:15→21:36)
[2016-09-17] MEDS: BENEPROTEIN POWDER 1 PACK G-TUBE SCH ×2 (08:15→21:39)
[2016-09-17] MEDS: LACTIC ACID (AMMONIUM LACTATE) 12% LOTION 225 GM BTL TOPICAL SCH ×2 (08:16→21:38)
--- NOTE | 2016-09-17 08:51 | HHI.PR ---
Subjective Remarks Patient seen and examined today. Patient states that he is hungry. Asking for his breakfast. Denies any new complaints. Objective Vitals Vital Signs Date Time Temp Pulse Resp B/P Pulse Ox O2 Delivery O2 Flow Rate FiO2 09/17/16 08:00 96.9 83 20 95/70 95 09/17/16 00:59 16 09/16/16 20:00 96.0 88 20 105/80 97 I/O 09/16/16 09/16/16 09/16/16 09/17/16 09/17/16 09/17/16 07:00 15:00 23:00 07:00 15:00 23:00 Intake Total 240 ml 240 ml 240 ml 120 ml Output Total 150 ml Balance 240 ml 240 ml 240 ml -30 ml Intake Oral 60 ml 240 ml 240 ml 120 ml Tube Irrigant 180 ml Output Urine Total 150 ml # Voids 2 2 1 # Bowel Movements 1 0 0 0 Objective Remarks GENERAL: Well-developed, well-nourished, in no acute distress. alert and awake. Orientated to person only HEENT: Head is normocephalic without any lesions or masses noted. Facial features are symmetric. Eyes: Extraocular muscles are intact. Conjunctivae were clear. NECK: Supple without any masses. Trachea midline no deviation. No JVD, CARDIAC: Regular rhythm, regular rate. S1/S2 are heard. No murmurs gallops or rubs. LUNGS: Clear to auscultation bilaterally. No wheeze, rhonchi or rales. No use of accessory muscles on inspiration or expiration. ABDOMEN: Soft, nontender. Nondistended. Bowel sounds heard in all 4 quadrants. No organomegaly or masses. Negative rebound, negative guarding. PEG tube site clear without signs of infection EXTREMITIES: No edema, pulses are equal bilaterally. No cyanosis or clubbing NEUROLOGY: Mood and affect appear appropriate. Cranial nerves II through XII grossly intact. 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 ST signed off. - Tylenol/Fioricet for HAs - Continue Seroquel - Neuropsychiatry consultation has been requested. Dizziness with episodes hypotension: Hypotension resolved. -Orthostatics were ordered and reveal no orthostasis. -Increased to 150mL free water flushes [id number]. Hypertension: with episodes of hypotension. Blood pressure stable -Patient no longer on any blood pressure medications. Normocytic anemia -H&H stable Acute protein calorie malnutrition: Pre-albumin 18 - Dietitian following. - Bolus feedings, Rec Jevity 1.5 w/ 1-can(240ml) @ 0600, 1000, 1400, and 2200 - Continue free water flushes. - Speech therapy indicates mechanical soft diet and thin liquids in addition to tube feeds (chopped meat). Patient may have double trays - Continue Ensure TID. Benaprotein twice daily Physical deconditioning - Continue PT/OT Hermila Ventriculitis, resolved - S/P intraventricular Amphotericin B administration. Last dose 06/30. - right ventriculostomy 06/03, replaced 06/12 - S/P Diflucan end date 08/07/16 per ID recommendations. - Repeat /2 CSF studies without growth. Enterococcus Bacteremia, resolved - Completed course of Vanc IV 06/24 GI prophylaxis: -Pepcid Continue bowel regimen DVT Prophylaxis - Heparin subQ No change in present treatment plan Discharge Planning Discharge planning per case management. Physical therapy and occupational therapy still recommending rehabilitation. Patient has been approved for SSI and needs payee. [facility] has evaluated the patient on 09/03/16. Awaiting case management to arrange someone to be able to sign him in to LT[facility] Stanley Ruiz Sep 17, 2016 08:51
[2016-09-17 20:00] VITALS: BP 105/76; PULSE 88; RESP 16; TEMP 97.3; O2SAT 98
[2016-09-18] MEDS: FREE WATER PEG SCH ×4 (04:08→22:00)
[2016-09-18 07:15] VITALS: BP 89/67; PULSE 71; RESP 16; TEMP 95.5; O2SAT 97
[2016-09-18] MEDS: QUEtiapine FUMARATE 25 MG TAB PO SCH ×2 (08:29→21:31)
[2016-09-18] MEDS: HEPARIN SODIUM - SQ 10,000 UNITS/ML VIAL SQ SCH ×2 (08:29→21:00)
[2016-09-18] MEDS: FAMOTIDINE 20 MG TAB PO SCH ×2 (08:29→21:31)
[2016-09-18] MEDS: levETIRAcetam 500 MG TAB PO SCH ×2 (08:29→21:31)
[2016-09-18] MEDS: BENEPROTEIN POWDER 1 PACK G-TUBE SCH ×2 (08:30→21:00)
[2016-09-18] MEDS: LACTIC ACID (AMMONIUM LACTATE) 12% LOTION 225 GM BTL TOPICAL SCH ×2 (08:35→21:35)
--- NOTE | 2016-09-18 15:13 | HHI.PR ---
Subjective Remarks Patient seen and examined today. Patient denies any new complaints. No change in clinical status. Patient states that he is eating all of his food. Objective Vitals Vital Signs Date Time Temp Pulse Resp B/P Pulse Ox O2 Delivery O2 Flow Rate FiO2 09/18/16 07:15 95.5 71 16 89/67 97 09/17/16 20:00 97.3 88 16 105/76 98 I/O 09/17/16 09/17/16 09/17/16 09/18/16 09/18/16 09/18/16 07:00 15:00 23:00 07:00 15:00 23:00 Intake Total 120 ml 600 ml 240 ml 240 ml Output Total 150 ml 150 ml 750 ml 550 ml Balance -30 ml 450 ml -510 ml -310 ml Intake Oral 120 ml 120 ml 240 ml 240 ml Tube Feeding 480 ml Output Urine Total 150 ml 150 ml 750 ml 550 ml # Voids 2 # Bowel Movements 0 0 1 0 Objective Remarks GENERAL: Well-developed, well-nourished, in no acute distress. alert and awake. Orientated to person only HEENT: Head is normocephalic without any lesions or masses noted. Facial features are symmetric. Eyes: Extraocular muscles are intact. Conjunctivae were clear. NECK: Supple without any masses. Trachea midline no deviation. No JVD, CARDIAC: Regular rhythm, regular rate. S1/S2 are heard. No murmurs gallops or rubs. LUNGS: Clear to auscultation bilaterally. No wheeze, rhonchi or rales. No use of accessory muscles on inspiration or expiration. ABDOMEN: Soft, nontender. Nondistended. Bowel sounds heard in all 4 quadrants. No organomegaly or masses. Negative rebound, negative guarding. PEG tube site clear without signs of infection EXTREMITIES: No edema, pulses are equal bilaterally. No cyanosis or clubbing NEUROLOGY: Mood and affect appear appropriate. Cranial nerves II through XII grossly intact. 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 ST signed off. - Tylenol/Fioricet for HAs - Continue Seroquel - Neuropsychiatry consultation has been requested. Dizziness with episodes hypotension: Hypotension resolved. -Orthostatics were ordered and reveal no orthostasis. -Increased to 150mL free water flushes [id number]. Hypertension: with episodes of hypotension. Blood pressure stable -Patient no longer on any blood pressure medications. Normocytic anemia -H&H stable Acute protein calorie malnutrition: Pre-albumin 18 - Dietitian following. - Bolus feedings, Rec Jevity 1.5 w/ 1-can(240ml) @ 0600, 1000, 1400, and 2200 - Continue free water flushes. - Speech therapy indicates mechanical soft diet and thin liquids in addition to tube feeds (chopped meat). Patient may have double trays - Continue Ensure TID. Benaprotein twice daily Physical deconditioning - Continue PT/OT Hermila Ventriculitis, resolved - S/P intraventricular Amphotericin B administration. Last dose 06/30. - right ventriculostomy 06/03, replaced 06/12 - S/P Diflucan end date 08/07/16 per ID recommendations. - Repeat 1/2 CSF studies without growth. Enterococcus Bacteremia, resolved - Completed course of Vanc IV 06/24 GI prophylaxis: -Pepcid Continue bowel regimen DVT Prophylaxis - Heparin subQ No change in present treatment plan Discharge Planning Discharge planning per case management. Physical therapy and occupational therapy still recommending rehabilitation. Patient has been approved for SSI and needs payee. [facility] rehabilitation has evaluated the patient on 09/03/16. Discussed with case management who indicated that they have found a payee, awaiting acceptance at [facility] for transfer Satnley Ruiz Sep 18, 2016 15:13
[2016-09-18 19:15] VITALS: BP 88/67; PULSE 98; RESP 16; TEMP 97.4; O2SAT 97
[2016-09-19] MEDS: FREE WATER PEG SCH ×3 (04:00→15:36)
[2016-09-19 08:00] VITALS: BP_SYST 109; BP_SYST 117; BP_DIAS 74; BP_DIAS 79; PULSE 71; PULSE 75; RESP 16; TEMP 96.7; TEMP 97.9; O2SAT 96
[2016-09-19] MEDS: HEPARIN SODIUM - SQ 10,000 UNITS/ML VIAL SQ SCH (08:31)
[2016-09-19] MEDS: FAMOTIDINE 20 MG TAB PO SCH (08:31)
[2016-09-19] MEDS: BENEPROTEIN POWDER 1 PACK G-TUBE SCH (08:31)
[2016-09-19] MEDS: levETIRAcetam 500 MG TAB PO SCH (08:31)
[2016-09-19] MEDS: QUEtiapine FUMARATE 25 MG TAB PO SCH (08:31)
[2016-09-19] MEDS: LACTIC ACID (AMMONIUM LACTATE) 12% LOTION 225 GM BTL TOPICAL SCH (08:31)
--- NOTE | 2016-09-19 10:23 | HHI.PR ---
Subjective Remarks Patient seen and examined today. Patient denies any new complaints. Patient is eating well. Objective Vitals Vital Signs Date Time Temp Pulse Resp B/P Pulse Ox O2 Delivery O2 Flow Rate FiO2 09/19/16 08:00 96.7 75 16 109/79 96 09/18/16 19:15 97.4 98 16 88/67 97 I/O 09/18/16 09/18/16 09/18/16 09/19/16 09/19/16 09/19/16 06:59 14:59 22:59 06:59 14:59 22:59 Intake Total 240 ml 240 ml 450 ml Output Total 550 ml 425 ml 0 ml 250 ml Balance -310 ml -185 ml 0 ml 200 ml Intake Oral 240 ml 240 ml Tube Feeding 240 ml Other 210 ml Output Urine Total 550 ml 425 ml 0 ml 250 ml # Bowel Movements 0 0 0 0 Objective Remarks GENERAL: Well-developed, well-nourished, in no acute distress. alert and awake. Orientated to person only HEENT: Head is normocephalic without any lesions or masses noted. Facial features are symmetric. Eyes: Extraocular muscles are intact. Conjunctivae were clear. NECK: Supple without any masses. Trachea midline no deviation. No JVD, CARDIAC: Regular rhythm, regular rate. S1/S2 are heard. No murmurs gallops or rubs. LUNGS: Clear to auscultation bilaterally. No wheeze, rhonchi or rales. No use of accessory muscles on inspiration or expiration. ABDOMEN: Soft, nontender. Nondistended. Bowel sounds heard in all 4 quadrants. No organomegaly or masses. Negative rebound, negative guarding. PEG tube site clear without signs of infection EXTREMITIES: No edema, pulses are equal bilaterally. No cyanosis or clubbing NEUROLOGY: Mood and affect appear appropriate. Cranial nerves II through XII grossly intact. 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 ST signed off. - Tylenol/Fioricet for HAs - Continue Seroquel - Neuropsychiatry consultation has been requested. Dizziness with episodes hypotension: Hypotension resolved. -Orthostatics were ordered and reveal no orthostasis. -Increased to 150mL free water flushes [id number]. Hypertension: with episodes of hypotension. Blood pressure stable -Patient no longer on any blood pressure medications. Normocytic anemia -H&H stable Acute protein calorie malnutrition: Pre-albumin 18 - Dietitian following. - Bolus feedings, Rec Jevity 1.5 w/ 1-can(240ml) @ 0600, 1000, 1400, and 2200 - Continue free water flushes. - Speech therapy indicates mechanical soft diet and thin liquids in addition to tube feeds (chopped meat). Patient may have double trays - Continue Ensure TID. Benaprotein twice daily Physical deconditioning - Continue PT/OT Hermila Ventriculitis, resolved - S/P intraventricular Amphotericin B administration. Last dose 06/30. - right ventriculostomy 06/03, replaced 06/12 - S/P Diflucan end date 08/07/16 per ID recommendations. - Repeat 07/07 CSF studies without growth. Enterococcus Bacteremia, resolved - Completed course of Vanc IV 06/24 GI prophylaxis: -Pepcid Continue bowel regimen DVT Prophylaxis - Heparin subQ No change in present treatment plan Discharge Planning Discharge planning per case management. Physical therapy and occupational therapy still recommending rehabilitation. Patient has been approved for SSI and needs payee. [facility] rehabilitation has evaluated the patient on 09/03/16. Discussed with case management who indicated that they have found a payee, awaiting [facility] Stanley Ruiz Sep 19, 2016 10:22
[2016-09-19] MEDS ORDERED: LEVE500 PO (11:10)
[2016-09-19] MEDS ORDERED: FAMO20TA2 PO (11:10)
[2016-09-19] MEDS ORDERED: PROT6POW G-TUBE (11:10)
--- NOTE | 2016-09-19 11:11 | HHI.DCPOC ---
Discharge Care Plan Diagnosis: (1) Cerebellar hemorrhage (2) Encephalopathy, traumatic Goals to Promote Your Health * To prevent worsening of your condition and complications * To maintain your health at the optimal level Directions to Meet Your Goals Take your medications as prescribed Follow your dietary instruction Follow activity as directed Keep your appointments as scheduled Take your immunizations and boosters as scheduled If your symptoms worsen call your PCP, if no PCP go to Urgent Care Center or Emergency Room Smoking is Dangerous to Your Health. Avoid second hand smoke Call the 24-hour hour crisis hotline for domestic abuse at Stanley Ruiz Sep 19, 2016 11:11
--- NOTE | 2016-09-19 16:11 | HHI.DS ---
Discharge Summary Admission Date May 29, 2016 at 14:01 Discharge Date: Sep 19, 2016 Admitting Diagnosis Intracranial hemorrhage, AVM status post repair at outside hospital. Return transfer of care. (1) Dizziness ICD Code: R42 (2) Cerebellar hemorrhage ICD Code: I61.4 (3) AVM (arteriovenous malformation) brain ICD Code: Q28.2 (4) Agitation ICD Code: R45.1 (5) Hermila Ventriculitis (6) CSF leak ICD Code: G96.0 (7) HTN (hypertension) ICD Code: I10 (8) Bacteremia due to Enterococcus ICD Code: R78.81 (9) Normocytic anemia ICD Code: D64.9 (10) Protein calorie malnutrition ICD Code: E46 Procedures Right frontal [place] hole with placement of a ventriculostomy catheter Brief History - From Admission Extensive chart review as the patient is unable to provide his own history. He is a 55-year-old male with a medical history significant for rectal cancer status post resection, chemotherapy therapy and radiation. The patient was initially admitted to [facility] on 05/03/2016 after he was found down. He was intubated in the field and was noted to have disconjugate pupils. 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 The patient underwent placement of right frontal external ventricular drain for acute hydrocephalus and was transferred to [facility] for further treatment of the AVM. At [facility], the patient underwent AVM embolization followed by suboccipital craniotomy for hematoma evacuation and AVM resection. Postoperatively, he was slow to wake up and a head CT showed herniation. His EVD was Clamped and his mental status improved. Other complications include the UTI and agitation. He was started on Rocephin and Seroquel when improvement. The patient is being transferred back to [facility]. The patient is evaluated in his room. He is still very much confused trying to pull off his PEG. He knows that he is at [facility] otherwise he is confused about his situation, dates and times. Imaging Last Impressions Shoulder X-Ray 08/01/16 0000 Signed Impressions: Service Date/Time: Monday, August 01, 2016 15:10 - CONCLUSION: Unremarkable limited examination of the left shoulder. Don López MD Head CT 07/15/16 0600 Signed Impressions: Service Date/Time: Friday, July 15, 2016 05:43 - CONCLUSION: 1. Fluid collection in the posterior soft tissues has significantly decreased in prominence. 2. Post surgical changes in the left cerebellum with previous occipital craniectomy. Altaf Alfaro MD Abdomen X-Ray 07/10/16 0937 Signed Impressions: Service Date/Time: July 09:57 - CONCLUSION: Stable nonspecific benign abdomen appearance Brian Vasquez MD Lower Extremity Ultrasound 07/05/16 0000 Signed Impressions: Service Date/Time: Tuesday, July 05, 2016 11:28 - CONCLUSION: Normal examination. Jese Malik MD Chest X-Ray 06/22/16 0000 Signed Impressions: Service Date/Time: Wednesday, June 22, 2016 12:54 - CONCLUSION: No acute cardiopulmonary disease identified. Tommy Ramirez MD ADDENDUM: There is a right arm PICC appropriately positioned, tip at the atriocaval junction. Brian Hu MD PE at Discharge GENERAL: Pleasant well-developed patient in no apparent distress. CARDIOVASCULAR: Regular rate and rhythm. RESPIRATORY: No accessory muscle use. CTAB. GASTROINTESTINAL: Abdomen soft, non-tender, non-distended. NEUROLOGICAL: Sleeping but arouses to voice and answers questions. Normal speech. 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 ST signed off. - Tylenol/Fioricet for HAs - Continue Seroquel - Neuropsychiatry consultation has been requested. Dizziness with episodes hypotension: Hypotension resolved. -Orthostatics were ordered and reveal no orthostasis. -Increased to 150mL free water flushes [id number]. Hypertension: with episodes of hypotension. Blood pressure stable -Patient no longer on any blood pressure medications. Normocytic anemia -H&H stable Acute protein calorie malnutrition: Pre-albumin 18 - Dietitian following. - Bolus feedings, Rec Jevity 1.5 w/ 1-can(240ml) @ 0600, 1000, 1400, and 2200 - Continue free water flushes. - Speech therapy indicates mechanical soft diet and thin liquids in addition to tube feeds (chopped meat). Patient may have double trays - Continue Ensure TID. Benaprotein twice daily Physical deconditioning - Continue PT/OT Hermila Ventriculitis, resolved - S/P intraventricular Amphotericin B administration. Last dose 06/30. - right ventriculostomy 06/03, replaced 06/12 - S/P Diflucan end date 08/07/16 per ID recommendations. - Repeat 07/07 CSF studies without growth. Enterococcus Bacteremia, resolved - Completed course of Vanc IV 06/24 Pt Condition on Discharge: Stable Discharge Disposition: Discharge to SNF Discharge Time: > 30 minutes Discharge Instructions DIET: Follow Instructions for: Heart Healthy Diet Speech Therapy-Diet Recommends: Mechanical Soft, Chopped Meat w/Gravy Additional Diet Instructions: Bolus tube feeding with Jevity 1.5. One can (240 mL) at 10:00, 1400, 2200. Beneprotein packet twice daily Activities you can perform: See Additionl Instruction Other Activity Instructions: Out of bed with assistance Follow up Referrals: PCP Follow-up - 1 Week New Medications: Famotidine (Famotidine) 20 Mg Tab 20 MG PO BID GI protection Days 30 TAB Levetiracetam (Keppra) 500 Mg Tab 1000 MG PO Q12HR seizure prevention Days 30 TAB Protein (Beneprotein) 6 Gm Pow 1 PACK G-TUBE BID nutrition supplement Days 30 PKT Discontinued Medications: Chlorhexidine Gluconate (Mouth) Liq (Peridex Liq) 0.12% Soln 15 ML SWISH-SPIT BID #473 Ref 0 ML Dextrose (Dextrose 50%) 50 % Inj PRN Per Hypoglycemic Protocol Ipratropium-Albuterol Neb (Duoneb) 0.5-2.5 Mg/3 Ml Neb 1 NEBULE INH Q6HR NEB PRN WHEEZING #120 Ref 0 NEBULE Magnesium-Calcium Carbonates-Folic Acid (Magnebind-400 Rx) 400-200-1 Mg Tab 2 TAB PO TID PRN magnesium #180 Ref 0 TAB Nicardipine HCl in Dextrose (Cardene IV 20-4.8 mg/200Ml-%) 1 Kourtney Kourtney MG IV-CENTRAL PRN SBP>160, DBP>90 Nimodipine (Bulk) (Nimodipine) 1 Pow Pow 60 MG Q6HR Ondansetron Liq (Zofran Liq) 4 Mg/5 Ml Soln 4 MG IVP Q6H PRN NAUSEA Ref 0 ML Pantoprazole (Protonix) 40 Mg Tab 40 MG IVP DAILY Reflux #30 Ref 0 TAB Phenytoin Extended (Dilantin) 100 Mg Cap 100 MG IVP Q8HR #90 Ref 0 CAP Polyethylene Glycol 3350 Powder (Miralax Powder) 17 Gm Powd 17 GM PO BID Mix and dissolve one measuring cap-ful (17 grams) in water or juice. Constipation #1 Ref 0 BOTTLE Potassium Chloride Liq (Potassium Chloride Liq) 40 Meq/15 Ml Soln 40 MEQ PO DAILY PRN POTASSIUM LESS THAN 3 Ref 0 ML Potassium Phosphate Dibasic (Bulk) (Potassium Phosphate Dibasic (Bulk)) 1 Gra Gra 2000 MG PRN PHOSPHORUS LESS THAN 1.2 Propofol (Propofol) 1,000 Mg/100 Ml Inj MG IV-CENTRAL PRN SEDATION Sennosides-Docusate Sodium (Docusate Sodium-Senna) 8.6-50 Mg Tab 2 TAB PO BID Prevent Constipation #60 Ref 0 TAB Stanley Ruiz Sep 19, 2016 16:11
== END 2016-09-19 19:30 | DRG 23 ==
LOC: N05A 05-29 14:01 → OBSVTOIN 05-29 14:01 → N03A 06-02 20:24 → N05B 07-16 17:37 → PH5A 08-11 20:57
PROVIDERS: ADMIT Family Medicine; ATTEND Hospitalist
PROC: 009630Z Drainage of Cerebral Ventricle with Drainage Device, Percutaneous Approach (ICD-10-PCS; principal; 2016-06-03)
PROC: 00W630Z Revision of Drainage Device in Cerebral Ventricle, Percutaneous Approach (ICD-10-PCS; 2016-06-12)
PROC: 02HV33Z Insertion of Infusion Device into Superior Vena Cava, Percutaneous Approach (ICD-10-PCS; 2016-06-22)
DX: I60.8 Other nontraumatic subarachnoid hemorrhage (principal); G93.40 Encephalopathy, unspecified; A41.81 Sepsis due to Enterococcus; G04.90 Encephalitis and encephalomyelitis, unspecified; E87.0 Hyperosmolality and hypernatremia; B37.89 Other sites of candidiasis; I95.9 Hypotension, unspecified; N39.0 Urinary tract infection, site not specified; E44.1 Mild protein-calorie malnutrition; G96.0 Cerebrospinal fluid leak; G97.82 Other postprocedural complications and disorders of nervous system; Z68.1 Body mass index [BMI] 19.9 or less, adult; I61.4 Nontraumatic intracerebral hemorrhage in cerebellum; R13.10 Dysphagia, unspecified; I10 Essential (primary) hypertension; E87.6 Hypokalemia; R45.1 Restlessness and agitation; D64.9 Anemia, unspecified; E86.9 Volume depletion, unspecified; F32.9 Major depressive disorder, single episode, unspecified; K59.00 Constipation, unspecified; R42 Dizziness and giddiness; R19.7 Diarrhea, unspecified; Z75.1 Person awaiting admission to adequate facility elsewhere; Z85.048 Personal history of other malignant neoplasm of rectum, rectosigmoid junction, and anus; Z92.21 Personal history of antineoplastic chemotherapy; Z92.3 Personal history of irradiation; Z87.891 Personal history of nicotine dependence; Z88.5 Allergy status to narcotic agent
CPT/HCPCS: 36569; 61210; 70450; 70470; 71010; 73030; 74000; 76937; 80048; 80053; 80076; 80177; 80202; 82140; 82150; 82550; 82945; 82948; 83605; 83690; 83735; 84100; 84132; 84134; 84157; 85007; 85025; 85027; 85384; 85610; 85730; 86403; 87015; 87040; 87070; 87102; 87103; 87106; 87116; 87186; 87205; 87206; 87493; 87641; 89051; 93005; 93970; 94150; 94667; 94668; 95819; J0285; J0289; J0690; J0696; J1200; J1450; J1580; J1644; J1720; J1953; J2250; J2270; J2405; J2765; J3010; J3370; J3411; J3480; J7030; J7040; J7050; J7060; Q9967